=== PATIENT | male | born 1950 | race Caucasian/White ===

== ENCOUNTER 2018-08-02 04:20 | Emergency (ER) | payer MEDICARE ==
[~2018-08-02] VITALS: Ht 182.9 cm; Wt 100.0 kg
[~2018-08-02 04:20] MED LIST: ENAL20TA; OXYC20TA15
[2018-08-02 04:21] VITALS: BP 158/74
[2018-08-02] MEDS ORDERED: [UNRECOGNIZED DRUG - CODE] PO (04:30)
[2018-08-02] MEDS ORDERED: HYDR-3719 PO (04:30)
[2018-08-02] MEDS ORDERED: LYRI75CA PO (05:34)
[2018-08-02] MEDS ORDERED: NORT10CA2 PO (05:40)
[2018-08-02] MEDS ORDERED: PREGABALIN 75 MG CAP(LYRICA) PO ONE (05:45)
== END 2018-08-02 05:42 | disposition home or self-care (01) ==
LOC: M ED 04:20
DX: G62.89 Other specified polyneuropathies (principal); Z79.899 Other long term (current) drug therapy

== ENCOUNTER → 2020-06-03 | Outpatient (CLI) | payer MEDICARE, OTHER ==
[~2020-06-03] MED LIST changes: +HYDR-3719 PO; +LYRI75CA PO; +NORT10CA2 PO; +[UNRECOGNIZED DRUG - CODE] PO
[2020-06-03 12:06] LABS: BASO # 0.1 10^3/uL (0.0-0.2); BASO % 0.9 % (0.0-1.0); EOS # 0.2 10^3/uL (0.0-0.5); EOS % 1.8 % (0.0-3.0); HEMATOCRIT 39.1 % (42.0-52.0); HEMOGLOBIN 13.2 g/dl (13.5-17.5); LYMPH # 1.7 10^3/uL (1.5-5.0); LYMPH % 18.2 % (24.0-44.0); MEAN CORPUSCULAR HEMOGLOBIN 30.6 pg (27.0-33.0); MEAN CORPUSCULAR HGB CONC 33.8 g/dl (32.0-36.5); MEAN CORPUSCULAR VOLUME 90.7 fl (80.0-96.0); MONO # 0.8 10^3/uL (0.0-0.8); MONO % 8.5 % (0.0-5.0); NEUTROPHILS # 6.5 10^3/uL (1.5-8.5); NEUTROPHILS % 70.2 % (36.0-66.0); PLATELET COUNT, AUTOMATED 105 10^3/uL (150-450); RED BLOOD COUNT 4.31 10^6/uL (4.30-6.10); WHITE BLOOD COUNT 9.2 10^3/uL (4.0-10.0)
[2020-06-03 12:14] LABS: INR 1.39; PARTIAL THROMBOPLASTIN TIME 30.4 SECONDS (24.2-38.5); PROTHROMBIN TIME 17.4 SECONDS (12.5-14.3)
[2020-06-03 12:31] LABS: ALT/SGPT 15 U/L (12-78); BILIRUBIN,TOTAL 1.2 MG/DL (0.2-1.0); BLOOD UREA NITROGEN 22 MG/DL (7-18); CALCIUM LEVEL 8.7 MG/DL (8.8-10.2); CARBON DIOXIDE LEVEL 30 MEQ/L (21-32); CHLORIDE LEVEL 103 MEQ/L (98-107); CREATININE FOR GFR 1.15 MG/DL (0.70-1.30); FERRITIN 268 NG/ML (26-388); GLOMERULAR FILTRATION RATE > 60.0 (>49); GLUCOSE, FASTING 104 MG/DL (70-100); IRON (FE) 66 UG/DL (65-175); POTASSIUM SERUM 4.4 MEQ/L (3.5-5.1); SODIUM LEVEL 137 MEQ/L (136-145); TOTAL PROTEIN 7.6 GM/DL (6.4-8.2)
[2020-06-03 13:54] VITALS: BP 119/63
--- NOTE | 2020-06-03 17:51 | REP ---
INDICATION: UNSPEC. CIRRHOSIS OF LIVER, OTHER ASCITES COMPARISON: None. TECHNIQUE: The procedure was performed under the direct supervision of Dr. Lui. The risks and benefits of the procedure were explained to the patient and informed consent was obtained. The largest pocket of fluid was localized in the right flank using ultrasound guidance. The skin was prepped and draped in a sterile fashion. 1% lidocaine was used as a local anesthetic. Using ultrasound guidance, an 8-Korean multi side-hole catheter was inserted using trocar technique. 03155 cc of yellow fluid was withdrawn. The patient tolerated the procedure well and there were no immediate complications. After the appropriate amount of monitored convalescence, the patient was discharged from the department. FINDINGS: None IMPRESSION: Technically successful ultrasound-guided paracentesis yielding 70395 cc of yellow fluid. <Electronically signed by Alonso Lord > 06/03/20 [id number] <Electronically signed by Antoine Lui > 06/03/20 [id number]
[2020-06-06 12:07] LABS: ANTINUCLEAR ANTIBODIES DIRECT Negative (Negative)
== END ==
LOC: M IRPRO 10:58
PROVIDERS: ATTEND Internal Medicine Gastroenterology
DX: R18.8 Other ascites (principal); K74.60 Unspecified cirrhosis of liver

== ENCOUNTER 2020-09-05 09:12 | Inpatient (IN) | payer OTHER ==
[~2020-09-05] VITALS: Ht 188 cm; Wt 87.2 kg
[2020-09-05] MEDS ORDERED: NS 1,000 ML IV ONE (09:45)
--- NOTE | 2020-09-05 10:02 | REP ---
INDICATION: Altered Mental Status. COMPARISON: Comparison head CT study 27 February 2016.. TECHNIQUE: Helical scanning is acquired. 5 mm axial images were reformatted. Coronal MPR images were generated. FINDINGS: Bone window settings demonstrate an intact bony calvarium. There is no evidence of skull fracture or incidental bony calvarial lesion. The visualized paranasal sinuses appear clear. No intraorbital abnormality is seen. On soft tissue window setting images; the lateral, third, and fourth ventricles are normal in size and position. Lui-white differentiation pattern is normal above and below the tentorium. There are is no evidence of intracranial hemorrhage. No mass, edema, infarction, or midline shift is seen. No extra-axial fluid collection is appreciated. There is mild generalized volume loss. Small vessel atherosclerotic changes are again noted in the periventricular white matter. There is no evidence of intracranial hemorrhage. No acute infarction is evident. No extra-axial fluid collection, mass, edema, or midline shift is observed. IMPRESSION: Small-vessel changes and minimal volume loss. Unchanged from the 2016 prior study. No acute intracranial abnormality.. <Electronically signed by Kemal Lam > 09/05/20 0943
--- NOTE | 2020-09-05 10:17 | REP ---
INDICATION: Altered Mental Status. COMPARISON: No comparison radiographs. TECHNIQUE: Portable upright AP chest radiograph. FINDINGS: The lungs are well inflated and free of infiltrate. Pleural angles are sharp. Heart is enlarged. Pulmonary vasculature slightly cephalized. There are surgical clips in the left axillary soft tissues.. IMPRESSION: Cardiomegaly. Slight cephalization of vasculature. Surgical clips left axilla. Otherwise no acute disease.. <Electronically signed by Kemal Lam > 09/05/20 [id number]
[2020-09-05 10:28] LABS: BASO # 0.1 10^3/uL (0.0-0.2); BASO % 0.5 % (0.0-1.0); EOS # 0.2 10^3/uL (0.0-0.5); EOS % 1.5 % (0.0-3.0); HEMATOCRIT 35.9 % (42.0-52.0); HEMOGLOBIN 12.6 g/dl (13.5-17.5); LYMPH # 1.6 10^3/uL (1.5-5.0); LYMPH % 10.1 % (24.0-44.0); MEAN CORPUSCULAR HEMOGLOBIN 32.6 pg (27.0-33.0); MEAN CORPUSCULAR HGB CONC 35.1 g/dl (32.0-36.5); MEAN CORPUSCULAR VOLUME 92.8 fl (80.0-96.0); MONO # 1.3 10^3/uL (0.0-0.8); MONO % 8.4 % (0.0-5.0); NEUTROPHILS # 12.3 10^3/uL (1.5-8.5); NEUTROPHILS % 78.9 % (36.0-66.0); PLATELET COUNT, AUTOMATED 125 10^3/uL (150-450); RED BLOOD COUNT 3.87 10^6/uL (4.30-6.10)
[2020-09-05 10:31] LABS: WHITE BLOOD COUNT 15.6 10^3/uL (4.0-10.0)
[2020-09-05 10:37] LABS: VENOUS BASE EXCESS -1.9 (-2.0-2.0); VENOUS HCO3 23.2 MEQ/L (23.0-27.0); VENOUS O2 SATURATION 96.6 % (60.0-80.0); VENOUS PARTIAL PRESSURE CO2 40.8 mmHg (38.0-50.0); VENOUS PARTIAL PRESSURE O2 84.7 mmHg (30.0-50.0); VENOUS PH 7.372 UNITS (7.330-7.430); VENOUS STANDARD HCO3 22.8 MEQ/L; VENOUS TOTAL CO2 24.4 MEQ/L (24.0-28.0)
[2020-09-05 11:04] LABS: OSMOLALITY SERUM 292 MOSM/KG (280-301)
[2020-09-05 11:12] LABS: ACETAMINOPHEN LEVEL < 2.0 UG/ML (10.0-30.0); ALBUMIN 2.9 GM/DL (3.2-5.2); ALT/SGPT 75 U/L (12-78); BILIRUBIN,DIRECT 0.4 MG/DL (0.0-0.2); BILIRUBIN,TOTAL 0.7 MG/DL (0.2-1.0); BLOOD UREA NITROGEN 53 MG/DL (7-18); CALCIUM LEVEL 8.8 MG/DL (8.8-10.2); CARBON DIOXIDE LEVEL 23 MEQ/L (21-32); CHLORIDE LEVEL 97 MEQ/L (98-107); CK-MB VALUE MASS 1.9 NG/ML (<3.6); CPK CREATINE PHOSPHOKINASE 51 U/L (39-308); CREATININE FOR GFR 2.94 MG/DL (0.70-1.30); ETHYL ALCOHOL (ETHANOL) < 0.003 % (0.000-0.010); GLOMERULAR FILTRATION RATE 22.8 (>49); GLUCOSE, FASTING 167 MG/DL (70-100); MB/CK RELATIVE INDEX 3.73 (< OR =4); POTASSIUM SERUM 5.8 MEQ/L (3.5-5.1); SALICYLATE LEVEL < 1.7 MG/DL (5.0-30.0); SODIUM LEVEL 131 MEQ/L (136-145); TOTAL PROTEIN 6.6 GM/DL (6.4-8.2); TROPONIN I < 0.02 NG/ML (< 0.10)
[2020-09-05] MEDS ORDERED: NALOXONE INJ 0.4MG/1ML VIAL (J2310 PER 1MG) As Ordered ONE (11:37)
[2020-09-05] MEDS ORDERED: NALOXONE INJ 0.4MG/1ML VIAL (J2310 PER 1MG) IV STA (11:40)
[2020-09-05] MEDS ORDERED: NS 1,620 ML in IV 1 EA IV ONE (11:45)
[2020-09-05] MEDS ORDERED: cefTRIAXone SOD 2 GM in D5W MINI-BAG PLUS 50 ML IV ONE (11:45)
[2020-09-05] MEDS ORDERED: CALCIUM GLUCONATE 1,000 MG in D5W MINI-BAG PLUS 100 ML IV ONE (11:45)
[2020-09-05] MEDS ORDERED: HYDR12.55 PO (12:22)
[2020-09-05] MEDS ORDERED: TIZA4TAB4 PO (12:22)
[2020-09-05] MEDS ORDERED: TRAN4TAB PO (12:22)
[2020-09-05] MEDS ORDERED: SPIR50TA4 PO (12:22)
[2020-09-05] MEDS ORDERED: OXYC10TA12 PO (12:22)
[2020-09-05] MEDS ORDERED: MULT-6 PO (12:25)
[2020-09-05] MEDS ORDERED: DEXTROSE 50% 50 ML SYRINGE IV STA (13:01)
[2020-09-05] MEDS ORDERED: HumuLIN R (REGULAR) INSULIN (NovoLIN R) **100U/ML** PER UNIT IV STA (13:01)
--- NOTE | 2020-09-05 13:23 | HPEPDOC ---
General Date of Admission 09/05/20 Date of Service: Sep 05, 2020 Chief Complaint The patient is a 70-year-old male admitted with a reason for visit of Tremors/Ams. Source: Patient Exam Limitations: Clinical conditions Timing/Duration: Week(s) Severity: Moderate History of Present Illness Patient is 70 years old male with past medical history of Davila, hypertension, polyneuropathy, spinal stenosis presented to the hospital with altered mental status. Patient stated that for past 5-7 days he has been having cognitive slowing, he can't process information faster as usual. Also patient noticed increased hands tremor. In ER patient was found to have leukocytosis of 15.6, lactic acidosis 2.7, potassium 5.8, creatinine 2.9, ammonia level 60. CT head negative. Also patient was found to have hypotension 75/40, he received Narcan in ER with positive effect, blood pressure stabilized. Of note patient was on th e chronic opioid therapy. Also patient was found to have urinary retention, Wan catheter was placed, 400 mL was evacuated Home Medications Scheduled Hydrochlorothiazide (Hydrochlorothiazide) 12.5 Mg Tablet, 12.5 MG PO QHS, (Reported) Multivit-Min/Folic/Vit K/Lycop (Men's 50 Plus Multivitamin Tab) 1 Each Tablet, 1 TAB PO QHS, (Reported) Spironolactone (Spironolactone) 50 Mg Tablet, 50 MG PO BID, (Reported) Tizanidine HCl (Tizanidine HCl) 4 Mg Tablet, 4 MG PO QHS, (Reported) Trandolapril/Verapamil HCl (Trandolapr-Verapam ER 4-240 mg) 1 Each Tab.bp.24h, 1 TAB PO QHS, (Reported) Scheduled PRN Oxycodone HCl (Oxycodone HCl) 10 Mg Tablet, 10 MG PO QID PRN for PAIN, (Rep orted) Allergies Coded Allergies: No Known Allergies (Verified Allergy, Unknown, 09/05/20) Past Medical History Medical History Davila, hypertension, polyneuropathy, spinal stenosis Surgical History GALLBLADDER LEFT BREAST REMOVED FOR CANCER Family History FATHER: MOTHER: 2 SISTER(S) . 3 SON(S) , 5 DAUGHTER(S) - HEALTHY. Social History * Smoker: Denies Alcohol: Denies Drugs: denies A-FIB/CHADSVASC A-FIB History Current/History of A-Fib/PAF?: No Current PO Anticoag Therapy: No Review of Systems Constitutional: Reports: Malaise, Fatigue; Denies: Chills, Fever Eyes: Denies: Pain ENT: Denies: Head Aches Skin: Reports: Jaundice Pulmonary: Denies: Dyspnea Cardiovascular: Denies: Chest Pain Gastrointestinal: Denies: Nausea, Vomiting Genitourinary: Denies: Dysuria, Frequency Hematologic: Denies: Bruising Endocrine: Denies: Polydipsia Musculoskeletal: Denies: Neck Pain, Back Pain Neurological: Reports: Confusion; Denies: Weakness Psych: Reports: Mood Normal Physical Examination General Exam: Positive: Alert, Cooperative ENT Exam: Positive: Atraumatic Neck Exam: Positive: Supple Chest Exam: Positive: Clear to auscultation Heart Exam: Positive: Rate Normal Telemetry: Positive: No significant arrhythmia Abdomen Exam: Positive: Normal bowel sounds, BS Hypoactive, Hepatospenomegaly Skin Exam: Positive: Breakdown, Lesion Neuro Exam: Positive: Cranial Nerves 3-12 NL, Other (asterixis sign positive) Psych Exam: Positive: Other (mild confusion and slow cognitive functioning) Vital Signs Vital Signs Date Time Temp Pulse Resp B/P (MAP) Pulse Ox O2 Delivery O2 Flow Rate FiO2 09/05/20 12:55 61 18 90/53 (65) 100 Room Air 09/05/20 10:45 97.3 Laboratory Data Labs 24H Laboratory Tests 2 09/05/20 09:33: Urine Color YELLOW, Urine Appearance CLEAR, Urine pH 6.0, Urine Specific [place] 1.006, Urine Protein NEGATIVE, Urine Glucose (UA) 3+H, Urine Ketones NEGATIVE, Urine Blood NEGATIVE, Urine Nitrite NEGATIVE, Urine Bilirubin NEGATIVE, Urine Urobilinogen 0.2, Urine Leukocyte Esterase NEGATIVE, Urine WBC (Auto) 2, Urine RBC (Auto) 1, Urine Hyaline Casts (Auto) 0, Urine Bacteria (Auto) NEGATIVE, Urine Squamous Epithelial Cells 0, Urine Sperm (Auto) 09/05/20 09:42: 09/05/20 10:08: Immature Granulocyte % (Auto) 0.6, Neutrophils (%) (Auto) 78.9H, Lymphocytes (%) (Auto) 10.1L, Monocytes (%) (Auto) 8.4H, Eosinophils (%) (Auto) 1.5, Basophils (%) (Auto) 0.5, Neutrophils # (Auto) 12.3H, Lymphocytes # (Auto) 1.6, Monocytes # (Auto) 1.3H, Eosinophils # (Auto) 0.2, Basophils # (Auto) 0.1, Nucleated Red Blood Cells % (auto) 0.0, Blood Gas Bicarbonate Standard 22.8, Venous Blood pH 7.372, Venous Blood Partial Pressure CO2 40.8, Venous Blood Partial Pressure O2 84.7H, Venous Blood Total Carbon Dioxide 24.4, Venous Blood HCO3 23.2, Venous Blood Oxygen Saturation 96.6H, Venous Blood Base Excess -1.9, Anion Gap 11, Glomerular Filtration Rate 22.8L, Osmolality 292, Lactic Acid Level 2.7*H, Calcium Level 8.8, Total Bilirubin 0.7, Direct Bilirubin 0.4H, Aspartate Amino Transf (AST/SGOT) 55H, Alanine Aminotransferase (ALT/SGPT) 75, Alkaline Phosphatase 113, Ammonia 60H, Total Creatine Kinase 51, Creatine Kinase MB 1.9, Creatine Kinase MB Relative Index 3.73, Troponin I < 0.02, Total Protein 6.6, Al bumin 2.9L, Albumin/Globulin Ratio 0.8, Thyroid Stimulating Hormone (TSH) 2.750, Salicylates Level < 1.7L, Acetaminophen Level < 2.0L, Ethyl Alcohol Level < 0.003 09/05/20 12:42: CBC/BMP Laboratory Tests 09/05/20 10:08 Microbiology Microbiology 09/05/20 Blood Culture, Received Pending 09/05/20 Blood Culture, Received Pending Assessment/Plan Patient is 70 years old male with past medical history of Davila, hypertension, polyneuropathy, spinal stenosis presented to the hospital with altered mental status. Patient stated that for past 5-7 days he has been having cognitive slowing, he can't process information faster as usual. Also patient noticed increased hands tremor. In ER patient was found to have leukocytosis of 15.6, lactic acidosis 2.7, potassium 5.8, creatinine 2.9, ammonia level 60. CT head negative. Problems (1) Sepsis Status: Acute Problem Text: There is concern for SBP Patient was found to have hypotension and leukocytosis Started ceftriaxone Will proceed with CT abdomen and pelvis (2) Chronic neuropathic pain Status: Acute Problem Text: Opioids on hold for now due to altered mental status (3) DAVILA (nonalcoholic steatohepatitis) Status: Acute Problem Text: There is concern for hepatic encephalopathy secondary to Davila Ammonia level elevated to 60 We will start lactulose and rifaximin Continue spironolactone. Will start Lasix (4) Metabolic encephalopathy Status: Acute Problem Text: See above (5) ARF (acute renal failure) Status: Acute Problem Text: there is concern for hepatorenal syndrome secondary to advanced cirrhosis Appreciate/agree with embryology teacher consult (6) Hyperkalemia Status: Acute Problem Text: 10 units of insulin and D50 EKG negative for acute ischemic changes or QTc prolongation or T peak wave (7) Urinary retention Status: Chronic Problem Text: Patient was found to have urinary retention 400 mL was evacuated after Wan placement in ER Plan / VTE VTE Prophylaxis Ordered?: Yes RADHA MENDOZA DO Sep 05, 2020 13:23
[2020-09-05 13:41] LABS: RSV AMPLIFICATION NEGATIVE (NEGATIVE)
[2020-09-05] MEDS ORDERED: FUROSEMIDE 40MG/4ML VIAL (J1940) IV ONE (14:00)
--- NOTE | 2020-09-05 14:31 | REP ---
INDICATION: ascites COMPARISON: None TECHNIQUE: Axial noncontrast images from the lung bases to the pubic symphysis with coronal and sagittal reformations. This CT examination was performed using the following dose reduction techniques: Automated exposure control, adjustment of mA and/or kv according to the patient's size, and use of iterative reconstruction technique. FINDINGS: Evidence for cirrhosis and portal hypertension including mild splenomegaly, nodular liver contour, varices and portosystemic shunting as well as small amount of perihepatic and pelvic ascites. Pancreas, bilateral adrenal glands and right kidney are relatively normal for noncontrast evaluation. Left kidney includes 2 cm complex hypodensity likely representing complex cyst. Evidence for prior cholecystectomy. Bowel gas pattern without obstruction or acute inflammatory process. Diverticulosis noted without acute diverticulitis. Pelvis demonstrates Wan catheter in relatively normal bladder. Age-appropriate prostate gland and seminal vesicles noted. No retroperitoneal adenopathy. No free air. Abdominal aorta without aneurysm. Musculoskeletal structures demonstrate degenerative changes without acute osseous abnormality. Lung bases are clear. IMPRESSION: Changes related to cirrhosis with small amount of perihepatic and pelvic ascites. Further nonacute findings as described above. <Electronically signed by Alex Olivo > 09/05/20 [id number]
[2020-09-05 15:00] VITALS: BP 106/56
[2020-09-05 16:05] LABS: CALCIUM LEVEL 8.6 MG/DL (8.8-10.2); CREATININE FOR GFR 2.61 MG/DL (0.70-1.30); GLOMERULAR FILTRATION RATE 26.1 (>49); POTASSIUM SERUM 5.1 MEQ/L (3.5-5.1)
[2020-09-05] MEDS ORDERED: SPIRONOLACTONE 50 MG TAB PO SCH (17:00)
[2020-09-05] MEDS: NS 1,000 ML IV SCH (17:08)
[2020-09-05] MEDS: LACTULOSE 20 GM/30 ML SYRUP UD PO SCH (19:46)
[2020-09-05] MEDS: TAMSULOSIN 0.4 MG CAP PO SCH (19:47)
[2020-09-05] MEDS ORDERED: ACETAMINOPHEN 500 MG TAB PO ONE (20:15)
[2020-09-05] MEDS ORDERED: SODIUM CHLORIDE 0.9% 1000ML IV ONE (20:15)
[2020-09-05 21:13] LABS: AMPHETAMINES LEVEL URINE NEGATIVE (NEGATIVE); BARBITURATES URINE NEGATIVE (NEGATIVE); BENZODIAZEPINES URINE NEGATIVE (NEGATIVE); CANNABINOIDS URINE NEGATIVE (NEGATIVE); COCAINE METABOLITE URINE NEGATIVE (NEGATIVE); METHADONE URINE NEGATIVE (NEGATIVE); OPIATES URINE NEGATIVE (NEGATIVE); PHENCYCLIDINE URINE NEGATIVE (NEGATIVE)
[2020-09-05] MEDS ORDERED: NS 250 ML IV ONE (21:30)
[2020-09-05 22:00] VITALS: BP 132/59
[2020-09-06] MEDS: NS 1,000 ML IV SCH ×2 (02:28→18:56)
[2020-09-06] MEDS ORDERED: CAPSAICIN 0.025% CR 60 GM TOP PRN (02:45)
[2020-09-06] MEDS ORDERED: SODIUM CHLORIDE 0.9% 1000ML IV ONE ×2 (02:45→20:00)
[2020-09-06 05:59] LABS: HEMATOCRIT 36.8 % (42.0-52.0); HEMOGLOBIN 12.5 g/dl (13.5-17.5); MEAN CORPUSCULAR HEMOGLOBIN 31.6 pg (27.0-33.0); MEAN CORPUSCULAR VOLUME 92.9 fl (80.0-96.0); RED BLOOD COUNT 3.96 10^6/uL (4.30-6.10); WHITE BLOOD COUNT 10.9 10^3/uL (4.0-10.0)
[2020-09-06 06:00] VITALS: BP 116/55
[2020-09-06 06:08] LABS: PLATELET COUNT, AUTOMATED 95 10^3/uL (150-450)
[2020-09-06 06:23] LABS: ALBUMIN 2.4 GM/DL (3.2-5.2); BILIRUBIN,TOTAL 0.5 MG/DL (0.2-1.0); CALCIUM LEVEL 8.6 MG/DL (8.8-10.2); CREATININE FOR GFR 1.87 MG/DL (0.70-1.30); GLOMERULAR FILTRATION RATE 38.4 (>49); MAGNESIUM LEVEL 1.7 MG/DL (1.8-2.4); TOTAL PROTEIN 6.7 GM/DL (6.4-8.2)
[2020-09-06] MEDS: ENOXAPARIN 30MG/0.3ML SYRINGE (J1650 PER 10MG) SC SCH (07:57)
--- NOTE | 2020-09-06 08:47 | ECGEPIP ---
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
[2020-09-06] MEDS: LACTULOSE 20 GM/30 ML SYRUP UD PO SCH ×2 (09:27→20:22)
[2020-09-06] MEDS ORDERED: SOD POLYSTYRENE SULFONATE SUSP 15 GM/60 ML UD PO ONE (10:00)
[2020-09-06] MEDS ORDERED: SODIUM BICARBONATE 8.4% INJ 50MEQ 50 ML VIAL As Ordered ONE (12:43)
[2020-09-06] MEDS ORDERED: DULoxetine 20 MG CAP (CYMBALTA) PO ONE (13:00)
[2020-09-06 13:32] LABS: SPEC. GRAVITY BODY FLUIDS 1.014 (NOT ESTABLISHED)
[2020-09-06 13:53] LABS: SOURCE, BODY FLUID ALBUMIN ASCITES
[2020-09-06 14:00] VITALS: BP 132/70
[2020-09-06 14:05] LABS: SOURCE, BODY FLUID GLUCOSE ASCITES; SOURCE, BODY FLUID TOT PROTEIN ASCITES; TOTAL PROTEIN, BODY FLUID 1.6 G/DL (NOT ESTABLISHED)
[2020-09-06 16:14] LABS: SOURCE, BODY FLUID ASCITES
[2020-09-06 16:15] LABS: ASCITES FL COLOR PALE YELLOW (COLORLESS)
[2020-09-06 16:16] LABS: APPEARANCE, BODY FLUID CLOUDY (CLEAR)
--- NOTE | 2020-09-06 16:45 | CR ---
CONSULTATION DATE: 09/06/2020 REQUESTING PHYSICIAN: Ji Espinosa D.O. REASON FOR CONSULTATION: Hyperkalemia and acute renal failure. HISTORY OF PRESENT ILLNESS: Mr. Manjit Tapia is previously unknown to me. He is a 70-year-old male with a past medical history of non-alcoholic steatohepatitis, hypertension, neuropathy, spinal stenosis and other comorbid conditions mentioned below. Patient presented to the Emergency Room on September 05 because of confusion, altered mentation and tremor. In the Emergency Room, patient was found to be hypotensive with blood pressure 80's to 90 systolic on arrival and laboratory studies revealed hyperkalemia with potassium of 5.8 and renal failure with a creatinine of 2.9 and lactic acidosis as well and hyperammonemia (ammonia level of 60). The patient was found to be in urinary retention with Wan catheter being placed with 400 cc of immediate urine output and the patient was also given Narcan in the Emergency Room as he is on chronic opioids at home. Overnight, the patient's blood pressure remained borderline and soft with the majority of his readings being in the systolic 90's and he received multiple fluid boluses of normal saline. He had persistent lactic acidosis as well. I started him on normal saline at 50 cc an hour and his urine output and his renal function both improved. Patient is seen and examined this morning at the bedside. He reports he is feeling better. He denies any shortness of breath. He denies any use of NSAIDS at home. PAST MEDICAL HISTORY: Neuropathy, hypertension, chronic opioid use, non-alcoholic steatohepatitis. PAST SURGICAL HISTORY: History of gallbladder surgery and left breast removed for history of cancer. FAMILY HISTORY: He denies any family history of renal failure. SOCIAL HISTORY: He denies alcohol, smoking or illicit drugs. He does take chronic opioids. ALLERGIES: No known drug allergies. REVIEW OF SYSTEMS: Constitutional: He reports fatigue. He denies fevers. Eyes: He denies visual changes or tearing. ENT: He denies epistaxis or rhinorrhea. Cardiac: He denies chest pain or palpitations. Respiratory: He denies shortness of breath or cough. Gastrointestinal: He denies nausea, vomiting or diarrhea. Genitourinary: He had urinary retention and now has a Wan catheter. He denies dysuria. Hematologic: He denies anticoagulant use or easy bleeding. Endocrine: He denies a history of diabetes or thyroid problems. Musculoskeletal: He denies leg swelling or gout. Neurologic: He reports neuropathy, spinal stenosis. Psychiatric: He denies anxiety or depression. Skin: He denies any new rashes or ulcers. PHYSICAL EXAMINATION: VITAL SIGNS: Temperature 98.5, pulse 91, respiratory rate 18, blood pressure 116/55, saturating 100% on room air. INTAKE AND OUTPUT: Intake yesterday was 5.5 liters. Urine output was 4.6 liters. Net positive 1 liter. Weight in the bed scale today is not recorded. GENERAL: Patient is seen lying in bed, a well built male in no distress. HEENT: Extraocular muscles are intact. Tongue is moist. NECK: Supple. Jugular veins are not elevated. HEART: Sounds are regular, S1, S2. There is no peripheral edema. There is no dependent edema. LUNGS: Clear to auscultation bilaterally. No crackle or rale. ABDOMEN: Soft, nontender. There are bowel sounds. His liver edge is palpable. GENITOURINARY: Shows indwelling Wan catheter. EXTREMITIES: No leg edema, clubbing or cyanosis. NEUROLOGIC: He is oriented x3, interactive, and at baseline mentation at the time of my visit. PSYCHIATRIC: Appropriate mood and affect. LABORATORY DATA: Sodium 137, potassium 5.0, bicarbonate 23, BUN 37 down from 53 on admission, creatinine 1.8 down from 2.9 on admission. Lactic acid at midnight was 3.1. Magnesium 1.7. BNP was 971 yesterday and 851 today. Hemoglobin 12.5, platelets 95,000. MICROBIOLOGY: Blood cultures with no growth 24-hours times two sets. IMAGING STUDIES: CT of the abdomen and pelvis done on September 05 shows 2 cm complex cyst in the left kidney, evidence for cirrhosis, portal hypertension and mild splenomegaly and nodular liver contour, a small amount of perihepatic and pelvic ascites. INPATIENT MEDICATIONS: He received several boluses of normal saline and he is presently on normal saline at 50 cc an hour. Duloxetine 20 mg p.o. daily, Lovenox 30 mg daily, Lactulose 30 cc p.o. twice daily, Rifaximin 400 mg p.o. b.i.d., Kayexalate 30 grams p.o. times one, Flomax 0.4 mg p.o. q.h.s. PROBLEMS: 1. MAYAD on CKD stage 2: Patient's baseline creatinine looks to be 1.1 based on his last renal panel in May of 2020. His nonoliguric renal injury appears to be prerenal and secondary to hypotension and hypovolemia. The patient received 3.5 liters of normal saline overnight with significant improvement in his blood pressure, urine output and renal function. I would continue normal saline at 50 cc an hour at this time. As his systolic has come up nicely, I do not see a need to start Midodrine. 2. Sepsis: Patient was hypotensive on arrival and required aggressive normal saline and has a white count of 15.6. He is afebrile. Blood cultures show no growth for 24 hours and ascitic studies are pending, and he did receive one dose of Ceftriaxone pending infectious workup. His urinalysis was negative. His white count is improving. 3. Hyperkalemia: It is due to use of SIA inhibitor at home and acute kidney injury in the setting of hypotension and hypovolemia and it has resolved with fluid hydration and improvement in renal function. He continues on a potassium restricted diet. 4. Lactic acidosis: Most likely it is secondary to hypotension, hypovolemia, sepsis. It is down trending with I.V. fluid. Continue I.V. fluid at this time. I see no signs of any sort of fluid overload. In deed, his BNP is down trending. Thank you for involving me in the care of Mr. Tapia. I would be happy to follow him along with you.
--- NOTE | 2020-09-06 17:12 | REP ---
INDICATION: Suspect SBP. Send ascites fluid for analysis The patient has a history of ascites COMPARISON: None. TECHNIQUE: The procedure was performed by Esther Perera [facility], under the direct supervision of Dr. Lam The risks and benefits of the procedure were explained to the patient and an informed consent was obtained both verbally and written. Directly prior to the start of the procedure a formal time-out was completed in the procedure room. The largest pocket of fluid was localized in the right flank using ultrasound guidance. The skin was prepped and draped in a sterile fashion. Ten ML of 1% lidocaine 10 mg/ml was used as a local anesthetic. An 8-Turkmen multi side-hole catheter was inserted using trocar technique. FINDINGS: 400 mL of pink ascites fluid was removed and sent to the laboratory for further analysis. The patient tolerated the procedure well and there were no immediate complications. After the appropriate amount of monitored convalescence, the patient was discharged from the department. IMPRESSION: Ultrasound-guided diagnostic paracentesis. <Electronically signed by Esther Perera > 09/06/20 1634 <Electronically signed by Kemal Lam > 09/06/20 [id number]
--- NOTE | 2020-09-06 19:01 | IPNPDOC ---
Text Note Date of Service The patient was seen on 09/06/20. NOTE Subjective: Patient was seen and examined this morning at bedside. Patient tells me he is feeling better he denies any abdominal pain denies any nausea vomiting denies chest pain or shortness of breath. There is no acute overnight events reported to me. Patient is alert and oriented and answering all questions appropriately. Objective: Constitutional: Awake and alert, in no apparent distress answering all questions appropriately this morning ENT: Sclera are clear Respiratory: Lungs CTA bilaterally. No respiratory distress. No use of accessory muscles. Cardiovascular: RRR S1 and S2 are normal, no murmur Gastrointestinal: Abdomen is soft, non distended, non tender, BS present. There is no fluid shift. Musculoskeletal: No edema. RUE 5/5, LUE 5/5, BLE 5/5 Neurologic: No focal neurological deficit. Mental Status: A&O x3, normal affect Skin: Warm, dry Assessment/plan: 70-year-old male admitted for acute encephalopathy suspected to be secondary to elevated ammonia levels from hepatic encephalopathy showing good improvement with lactulose and rifaximin also found to have acute kidney injury which responded well to IV fluids.shane # Acute metabolic encephalopathy: This is likely secondary to hepatic encephalopathy secondary to [place] liver. Ammonia was initially elevated. Patient was started on lactulose and rifaximin with marketed improvement with resolution of his encephalopathy. # MAYDA on CKD2: Suspected to be secondary to hypotension and hypovolemia. Has improved with IV fluid hydration. Nephrology was consulted. # Sepsis: Upon arrival he was hypotensive and required fluid resuscitation he had an elevated WBC count of 15.6 which down trended to be close to normal range. Initially suspected to be SBP and was started on IV ceftriaxone. He doesn't have any abdominal pain and ascites fluid analysis today is pending.If PMNs <250 can stop antibiotics as my suspicion of SBP is low I attribute his altered mental status to his elevated ammonia. Procalcitonin 0.25 - Abx discouraged. # Hyperkalemia: Likely due to seng inhibitor use in the setting of MAYDA # Lactic acidosis: This is down trended with IV fluids was likely due to hypotension and hypovolemia # Urinary retention: PVRs and trial of voiding # Chronic neuropathic pain: Patient's altered mental status on admission could be due to overuse of opioids as he did respond to Narcan. I advised the patient that he needs to use less opioids. I offered the patient gabapentin which she refused I also discussed with him the advantages of trying to use duloxetine which she also refused. He may require referral from his primary care physician to a pain clinic. [facility] Aydee CARCAMO, I+O Aydee CARCAMO I+O Laboratory Tests 09/06/20 05:39 Vital Signs Date Time Temp Pulse Resp B/P (MAP) Pulse Ox O2 Delivery O2 Flow Rate FiO2 09/06/20 14:00 97.8 93 16 132/70 (90) 97 Room Air I&O- Last 24 Hours up to 6 AM 09/06/20 06:00 Intake Total 6450 ml Output Total 5750 ml Balance 700 ml KEILA CHAPMAN MD Sep 06, 2020 19:01
[2020-09-06] MEDS: TAMSULOSIN 0.4 MG CAP PO SCH (20:23)
[2020-09-06 22:00] VITALS: BP 147/79
[2020-09-06] MEDS ORDERED: cefTRIAXone SOD 2 GM in D5W MINI-BAG PLUS 50 ML IV ONE (23:45)
[2020-09-07 05:26] LABS: BASO % 0.5 % (0.0-1.0); EOS # 0.2 10^3/uL (0.0-0.5); EOS % 2.4 % (0.0-3.0); HEMOGLOBIN 12.4 g/dl (13.5-17.5); LYMPH # 0.9 10^3/uL (1.5-5.0); LYMPH % 11.9 % (24.0-44.0); MEAN CORPUSCULAR HGB CONC 34.4 g/dl (32.0-36.5); MONO # 0.7 10^3/uL (0.0-0.8); MONO % 8.7 % (0.0-5.0); RED BLOOD COUNT 3.87 10^6/uL (4.30-6.10); WHITE BLOOD COUNT 7.9 10^3/uL (4.0-10.0)
[2020-09-07 05:56] LABS: ALBUMIN 2.5 GM/DL (3.2-5.2); BILIRUBIN,TOTAL 0.6 MG/DL (0.2-1.0); CALCIUM LEVEL 8.3 MG/DL (8.8-10.2); CREATININE FOR GFR 1.31 MG/DL (0.70-1.30); GLOMERULAR FILTRATION RATE 57.9 (>49); POTASSIUM SERUM 3.8 MEQ/L (3.5-5.1); TOTAL PROTEIN 6.4 GM/DL (6.4-8.2)
[2020-09-07 06:00] VITALS: BP 144/79
[2020-09-07 06:20] LABS: PLATELET COUNT, AUTOMATED 58 10^3/uL (150-450)
[2020-09-07 08:00] VITALS: BP 146/85
[2020-09-07 09:00] VITALS: BP 146/85
[2020-09-07] MEDS ORDERED: DULoxetine 20 MG CAP (CYMBALTA) PO SCH (09:00)
[2020-09-07] MEDS: LACTULOSE 20 GM/30 ML SYRUP UD PO SCH (09:00)
[2020-09-07] MEDS: ENOXAPARIN 30MG/0.3ML SYRINGE (J1650 PER 10MG) SC SCH (09:00)
--- NOTE | 2020-09-07 10:13 | DS.PDOC ---
Discharge Summary General Date of Admission Sep 05, 2020 at 12:57 Date of Discharge 09/07/2020 Discharge Summary PROCEDURES PERFORMED DURING STAY: [None]. ADMITTING DIAGNOSES: 1. Altered mental status DISCHARGE DIAGNOSES: 1. Opioid overdose 2. Acute metabolic encephalopathy 3. Acute kidney injury 4. Sepsis 5. Lactic acidosis 6. Urinary retention COMPLICATIONS/CHIEF COMPLAINT: Chronic Neuropathic Pain Metabolic Encephalopathy. HISTORY OF PRESENT ILLNESS: From admitting attendings H&P: Patient is 70 years old male with past medical history of More[place], hypertension, polyneuropathy, spinal stenosis presented to the hospital with altered mental status. Patient stated that for past 5-7 days he has been having cognitive slowing, he can't process information faster as usual. Also patient noticed increased hands tremor. In ER patient was found to have leukocytosis of 15.6, lactic acidosis 2.7, potassium 5.8, creatinine 2.9, ammonia level 60. CT head negative. Also patient was found to have hypotension 75/40, he received Narcan in ER with positive effect, blood pressure stabilized. Of note patient was on the chronic opioid therapy. Also patient was found to have urinary retention, Wan catheter was placed, 400 mL was evacuated HOSPITAL COURSE: 70-year-old male admitted for acute encephalopathy suspected to be secondary to elevated ammonia levels from hepatic encephalopathy as well as possible opioid overdose which responded to Narcan also showing good improvement with lactulose and rifaximin also found to have acute kidney injury which responded well to IV fluids. # Acute metabolic encephalopathy: This is likely secondary to hepatic encephalopathy secondary to Moreno liver. Ammonia was initially elevated initially at 60 and improved to 26. Patient was started on lactulose and rifaximin with marketed improvement with resolution of his encephalopathy. It is possible that his opiate overdose was also contributing to his AMS as it responded to Narcan. # MAYDA on CKD2: Suspected to be secondary to hypotension and hypovolemia. Has improved with IV fluid hydration. Nephrology was consulted. # Sepsis: Upon arrival he was hypotensive and required fluid resuscitation he had an elevated WBC count of 15.6 which down trended now at normal range. Initially suspected to be SBP and was started on IV ceftriaxone. He doesn't have any abdominal pain and ascites fluid analysis today PMNs 50. He was given 1 extra dose of ceftriaxone out of abundance of caution after which antibiotics were stopped as my suspicion of SBP is low I attribute his altered mental status to his elevated ammonia as well as opiate overdose. I further questioned him regarding the presence of any abdominal pain or discomfort at time of admission and he says he's been having vague abdominal discomfort since the last time he was hospitalized and had large volume paracentesis but at the time of this admission this time he states his abdominal pain was actually never present and feels the best it's ever been. This further lowers my suspicion that SBP is at play. Procalcitonin 0.25 - Abx discouraged. # Hyperkalemia: Likely due to seng inhibitor use in the setting of MAYDA now resolved # Lactic acidosis: This resolved with IV fluids was likely due to hypotension and hypovolemia. Opiate overdose may have also contributed # Urinary retention: PVRs and trial of voiding # Chronic neuropathic pain: Patient's altered mental status on admission could be due to overuse of opioids as he did respond to Narcan. I advised the patient that he needs to use less opioids. I offered the patient gabapentin which she refused I also discussed with him the advantages of trying to use duloxetine which she also refused initially, but eventually agreed to try instead of the opioids as it should help more for his type of neuropathic pain. He may require referral from his primary care physician to a pain clinic. DISCHARGE MEDICATIONS: Please see below. ALLERGIES: Please see below. PHYSICAL EXAMINATION ON DISCHARGE: VITAL SIGNS: Please see below. Constitutional: Awake and alert, in no apparent distress answering all questions appropriately this morning ENT: Sclera are clear Respiratory: Lungs CTA bilaterally. No respiratory distress. No use of accessory muscles. Cardiovascular: RRR S1 and S2 are normal, no murmur Gastrointestinal: Abdomen is soft, non distended, non tender, BS present. There is no fluid shift. Musculoskeletal: No edema. RUE 5/5, LUE 5/5, BLE 5/5 Neurologic: No focal neurological deficit. Mental Status: A&O x3, normal affect Skin: Warm, dry LABORATORY DATA: Please see below. IMAGING: See chart PROGNOSIS: Fair ACTIVITY: [As tolerated]. DIET: 2 g sodium diet DISPOSITION: Home DISCHARGE INSTRUCTIONS: Please follow up with your primary care physician within 1 week from discharge. If you do not have one, please follow up with us to schedule an appointment. Please keep all of your follow up appointments. Please call central to book your appointments with hospital specialists. Please take all your medications as prescribed. Please call/come to Clinic or go to the Emergency Department if - Temp >101, intractable Nausea/Vomiting, Diarrhea, Mouth sores, Headaches, Altered mental s tatus, Seizures, sudden onset of swelling, bleeding, shortness of breath or chest pain. ITEMS TO FOLLOWUP ON ON OUTPATIENT: Follow-up with PCP within 3-5 days of discharge. DISCHARGE CONDITION: [Stable]. TIME SPENT ON DISCHARGE: 45 minutes. Vital Signs/I&Os Vital Signs Date Time Temp Pulse Resp B/P (MAP) Pulse Ox O2 Delivery O2 Flow Rate FiO2 09/07/20 08:00 97.4 98 18 146/85 (105) 98 Room Air I&O- Last 24 Hours up to 6 AM 09/07/20 06:00 Intake Total 4410 ml Output Total 2350 ml Balance 2060 ml Laboratory Data Labs 24H Laboratory Tests 2 09/06/20 13:05: Body Fluid Source ASCITES, Body Fluid Color PALE YELLOW, Body Fluid Appearance CLOUDY, Body Fluid Specific [place] 1.014, Body Fluid WBC (Auto) 683H, Body Fluid RBC (Auto) 4, Body Fluid Mononuclear Cells % Auto 92.7H, Fluid Polymorphonuclear Cell % Auto 7.3H, Body Fluid Glucose Source ASCITES, Body Fluid Glucose 315, Body Fluid Protein Source ASCITES, Body Fluid Total Protein 1.6, Body Fluid Albumin Source ASCITES, Body Fluid Albumin 0.7 09/06/20 19:11: Lactic Acid Level 3.4*H 09/06/20 22:38: Lactic Acid Level 2.4*H 09/07/20 05:13: Lactic Acid Level 1.4, Immature Granulocyte % (Auto) 0.5, Neutrophils (%) (Auto) 76.0H, Lymphocytes (%) (Auto) 11.9L, Monocytes (%) (Auto) 8.7H, Eosinophils (%) (Auto) 2.4, Basophils (%) (Auto) 0.5, Neutrophils # (Auto) 6.0, Lymphocytes # (Auto) 0.9L, Monocytes # (Auto) 0.7, Eosinophils # (Auto) 0.2, Basophils # (Auto) 0.0, Nucleated Red Blood Cells % (auto) 0.0, Anion Gap 7L, Glomerular Jose Daniel tration Rate 57.9, Calcium Level 8.3L, Total Bilirubin 0.6, Aspartate Amino Transf (AST/SGOT) 34, Alanine Aminotransferase (ALT/SGPT) 56, Alkaline Phosphatase 110, Ammonia 26, Total Protein 6.4, Albumin 2.5L, Albumin/Globulin Ratio 0.6 CBC/BMP Laboratory Tests 09/07/20 05:13 Microbiology Microbiology 09/06/20 Acid Fast Stain, Received Pending 09/06/20 Mycobacterial Culture, Received Pending 09/06/20 Fungal Smear, Received Pending 09/06/20 Fungal Culture, Received Pending 09/06/20 Gram Stain - Final, Resulted 09/06/20 Body Fluid Culture, Resulted Pending 09/05/20 Blood Culture - Preliminary, Resulted No growth after 24 hours . All specim... 09/05/20 Blood Culture - Preliminary, Resulted No Growth after 48 hours. All Specime... Discharge Medications Scheduled Duloxetine HCl (Cymbalta) 20 Mg Capsule.dr, 20 MG PO DAILY Hydrochlorothiazide (Hydrochlorothiazide) 12.5 Mg Tablet, 12.5 MG PO QHS, (Reported) Lactulose (Lactulose) 10 Gm/15 Ml Solution, 30 ML PO BID goal of 2-3 daily bowel movements Multivit-Min/Folic/Vit K/Lycop (Men's 50 Plus Multivitamin Tab) 1 Each Tablet, 1 TAB PO QHS, (Reported) Spironolactone (Spironolactone) 50 Mg Tablet, 50 MG PO BID, (Reported) Tamsulosin HCl (Flomax) 0.4 Mg Capsule, 0.4 MG PO QHS Tizanidine HCl (Tizanidine HCl) 4 Mg Tablet, 4 MG PO QHS, (Reported) Trandolapril/Verapamil HCl (Trandolapr-Verapam ER 4-240 mg) 1 Each Tab.bp.24h, 1 TAB PO QHS, (Reported) Scheduled PRN Capsaicin (Capsaicin) 0.025% Cream..g., 0 DOSE TOP QIDP PRN for burning pain Oxycodone HCl (Oxycodone HCl) 10 Mg Tablet, 10 MG PO QID PRN for PAIN, (Reported) Allergies Coded Allergies: No Known Allergies (Verified Allergy, Unknown, 09/05/20) KEILA CHAPMAN MD Sep 07, 2020 10:13
[2020-09-07] MEDS ORDERED: CAPS25CR TOP (10:17)
[2020-09-07] MEDS ORDERED: LACT20EL PO (10:17)
[2020-09-07] MEDS ORDERED: FLOM0.4C39 PO (10:17)
[2020-09-07] MEDS ORDERED: CYMB1CAP4 PO (10:17)
[2020-09-07] MEDS ORDERED: cefTRIAXone SOD 1 GM in D5W MINI-BAG PLUS 50 ML IV ONE (13:00)
[2020-09-07] MEDS ORDERED: cefTRIAXone SOD 2 GM in D5W MINI-BAG PLUS 50 ML IV ONE (13:00)
[2020-09-07 14:00] VITALS: BP 143/83
--- NOTE | 2020-09-07 16:05 | IPN ---
PROGRESS NOTE DATE: 09/07/2020 SUBJECTIVE: Manjit was seen and examined this morning at the bedside. He reports he feels much better. Yesterday evening I noted that the patient continued to have persistent lactic acidosis. His ascitic cell count yesterday showed only few polymorphonuclear leukocytes (PMNs); however, his cell count was done a day after he already received intravenous (IV) ceftriaxone in the emergency room. For that reason, I did dose him again yesterday evening with ceftriaxone. Patient denies any shortness of breath or abdominal tenderness. Laboratory studies show ongoing renal recovery. Temperature 98.1, pulse 98, respiratory rate 18, blood pressure 146/85, saturating 96% on room air. Intake yesterday was 4 liters. Urine output yesterday was 3 liters. Weight in the bed scale today was not recorded. General: Patient is seen awake, alert, oriented, and in no apparent distress. Extraocular muscles are intact. Tongue is moist. Neck is supple. Jugular veins are not elevated. Heart sounds are regular, S1, S2. There is no peripheral edema. There is no dependent edema. Lungs are clear to auscultation bilateral. No crackle or rale. Abdomen is soft and nontender. There are bowel sounds. His liver edge is palpable. Genitourinary shows indwelling Wan catheter. Extremities are negative for edema, clubbing, or cyanosis. Neurologic: Oriented times three, interactive and at baseline mentation. Psychiatric: Appropriate mood and affect. Today's laboratory studies show sodium 137, potassium 5.8, BUN 25, creatinine 1.3. Lactic acid 1.4. Ammonia 26. Hemoglobin 12.4, white count 7.9. His ascitic cell count yesterday showed 683 WBC, but only 67% of them were polymorphs. The remainder were monocytes. His ascitic culture is pending. INPATIENT MEDICATIONS: Reviewed by myself. The patient got a dose of IV ceftriaxone 2 grams times one yesterday evening, and he is ordered for another dose this afternoon. He continues on normal saline at 50 mL an hour. Remainder of medications is unchanged as compared to yesterday. PROBLEMS: 1. Nonoliguric acute renal failure superimposed on chronic kidney disease (CKD), stage II. It was in the setting of sepsis, most likely secondary to peritonitis. His renal function has improved with aggressive IV fluid and treatment of his sepsis. Baseline creatinine is 1.1, and today on labs his creatinine is down to 1.3. His home angiotensin-converting enzyme (SIA) inhibitor remains on hold. IV fluids can be discontinued at this time. He should followup in the nephrology office when he is discharged. 2. Sepsis. Most likely secondary to peritonitis. The patient initially had a white count of 15,000. He received IV ceftriaxone in the emergency room, and diagnostic paracentesis was done one day later. There were 683 WBC, but the polymorphs were only 7%; however, given that there was as a 1-day delay in diagnostic paracentesis and the patient already got IV antibiotic the preceding day, I am concerned that there was peritonitis, and I redosed him with ceftriaxone yesterday, and the hospitalist service is planning to give him another dose of ceftriaxone today, which I feel is very appropriate. His ascitic culture is pending. His blood culture is negative to date. His white count is improving. 3. Hyperkalemia. It is due to the use of SIA inhibitor and spironolactone at home in the setting of hypotension, hypovolemia, and sepsis, and it has resolved with IV fluid hydration and improvement in renal function. Given that he is on multiple medications with renal side effects, I discussed with him that he should followup in the nephrology office. 4. Status post lactic acidosis. It was due to sepsis, and is has resolved, and IV fluids have been discontinued.
== END 2020-09-07 18:16 | disposition home or self-care (01) | DRG 917 ==
LOC: M ED 09:12 → M ED INP 12:57 → M MSPAV 15:00
PROVIDERS: ADMIT Internal Medicine; ATTEND Family Medicine
PROC: 0W9F3ZZ Drainage of Abdominal Wall, Percutaneous Approach (ICD-10-PCS; principal; 2020-09-06 11:00)
DX: T40.2X1A Poisoning by other opioids, accidental (unintentional), initial encounter (principal); G93.41 Metabolic encephalopathy; A41.9 Sepsis, unspecified organism; N17.9 Acute kidney failure, unspecified; E87.2 Acidosis; K72.90 Hepatic failure, unspecified without coma; K75.81 Nonalcoholic steatohepatitis (NASH); G62.9 Polyneuropathy, unspecified; R33.9 Retention of urine, unspecified; E87.5 Hyperkalemia; Z79.899 Other long term (current) drug therapy; Z85.3 Personal history of malignant neoplasm of breast; N18.2 Chronic kidney disease, stage 2 (mild)

== ENCOUNTER 2020-09-16 14:31 | Inpatient (IN) | payer OTHER ==
[~2020-09-16] VITALS: Ht 182.9 cm; Wt 85.9 kg
[~2020-09-16 14:31] MED LIST changes: +CAPS25CR TOP; +CYMB1CAP4 PO; +FLOM0.4C39 PO; +HYDR12.55 PO; +LACT20EL PO; +MULT-6 PO; +OXYC10TA12 PO; +SPIR50TA4 PO; +TIZA4TAB4 PO; +TRAN4TAB PO
--- OUTSIDE RECORDS SUMMARY | 2020-09-16 14:38 | CCD ---
Author Organization Unknown Address [address] [place] [address] Phone [phone] Care Team Providers Care Machine Builder Name Role Phone CONCEPCION [employer] REVERSE UNIT OPERATOR 3 [phone] Allergies Code Code System Name Reaction Severity Status Onset NKDA Medications Name Status Start Date Stop Date amitriptyline 25 mg tablet TAKE FOUR TABLETS BY MOUTH AT BEDTIME Active N ot available aspirin 81 mg chewable tablet Chew 1 tablet every day by oral route. Completed 06/29/2020 buprenorphine 5 mcg/hour weekly transder mal patch APPLY 1 PATCH EVERY WEEK DIRECTED MAXIMUM DAILY DOSE 1 PATCH EVERY WEEK Active Not available diazepam 5 mg tablet Completed 10/07/2019 doxycycline hyclate 100 mg capsule TAKE ONE CAPSULE BY MOUTH TWICE A DAY Completed 1 08/30/2019 duloxetine 30 mg capsule,delayed release TAKE 1 CAPSULE BY MOUTH EVERY DAY FOR 2 WEEKS THEN 2 EVERY DAY Completed 06/29/2020 furosemide 40 mg tablet Active Not avai lable glimepiride 2 mg tablet one tablet daily with food Completed 06/29/2020 hydrochlorothiazide 12.5 mg tablet TAKE ONE TABLET BY MOUTH EVERY DAY Active Not available methadone 10 mg tablet TAKE ONE TABLET BY MOUTH TWICE A DAY MAXIMUM DAILY DOSE 2 TABLETS Completed 03/29/2020 methadone 5 mg tablet TAKE ONE TABLET BY MOUTH THREE TIMES A DAY MAXIMUM DAILY DOSE 3 Completed 03/29/2020 morphine ER 15 mg tablet,extended releas e TAKE ONE TABLET BY MOUTH EVERY 12 HOURS MAXIMUM DAILY DOSE 2 Completed 06/29/2020 oxycodone 10 mg tablet Take 1 tablet every 6-8 hours by oral route as needed. Active Not available OxyContin 10 mg tablet,crush resistant,extended release Complete d 06/29/2020 spironolactone 100 mg tablet Completed 08/2019 spironolactone 50 mg tablet Active Not available tizanidine 4 mg tablet Take 1 tablet twice a day by oral route as needed. Active Not available trandolapril 4 mg-verapamil ER 240 mg ta blet,immed-exten release 24 hr TAKE ONE TABLET BY MOUTH EVERY DAY Active Not available Problems Name Status Onset Date Source Hypertensive Disorder Active 02/01/2015 History Spondylosis without Myelopathy Active 02/01/2015 H istory Displacement of Lumbar Intervertebral Disc without Myelopathy Ac tive 02/01/2015 History Degeneration of Lumbosacral Intervertebral Disc Active 02/01/2015 History Lumbosacral Radiculopathy Active 02/01/2015 Histor y Procedures Date Name Performed by 06/08/2020 Abdomen Surgery Procedure Notes: draining the fluid n the abdomen Information not available Breast Surgery Procedure Information not available Cholecystectomy Information not avai lable Tarsal Tunnel Release Information not av ailable 10/07/2019 MRI, Lumbar Spine, W/o Contrast [facility] ([facility] [address] [place] [address] (Work Place) 12/10/2019 MRI, Lumbar Spine, W/o Contrast [facility] [address] [place] [address] (Work Place) 03/29/2020 MRI, Lumbar Spine, W/o Contrast [facility] [address] [address] (Work Place) Results Lab Results Date Name Specimen Result Interpretation Description Value Range Status Address 05/06/2020 Drug Screen, Urine No observation recorde d. [email or web address]: [address] [place] [address] 05/06/2020 [employer] Pdf Report UR No observation recorded. [email or web address]: [address] [place] [address] 05/06/2020 Drug Screen, Urine Amphetamines: negati ve Main Office: [address] [address] [address], [place] Thc negative Main Off ice: [address] [facility] [address] [place] Cocaine: negative Main Office: [address] [facility] [address] [place] Opiates: negative Main Office: [address] [facility] [address] [place] Mtd positive Main Off ice: [address] [facility] [address] [place] Oxy positive Main Off ice: [address] [address] [address] [place] Barbiturates: negative Main Office: [address] [address] [address] [place] Benzodiazepines: negative Main Office: [address] [facility] [address] [place] Methamphetamine negative Main Office: [address] [place] Pcp negative Main Off ice: [address] [place] 05/06/2020 Drug Screen, Urine U Tizanidine Ur Ql Cfm >=5 NG/mL >=5 NG/mL Final [facility]: [address] [place] [address] U Tizanidine Ur Cfm-mcnc 238 NG/mL >=2 5 NG/mL Final [facility]: [address] [place] [address] U Dehydrotizanidine Ur Cfm-mcnc 60 NG/ mL >=5 NG/mL Final [facility]: [address] [place] [address] 05/06/2020 Drug Screen, Urine U Buprenorphine Ur Ql Cfm <1 NG/mL >=1 NG/mL Final [facility]: [address] [place] [address] U Alcohol Metabolites Ur Ql Cfm <200 N G/mL >=200 NG/mL Final [facility]: [address] [place] [address] U Ethyl Glucuronide Ur Cfm-mcnc <500 N G/mL >=500 NG/mL Final [facility]: [address] [place] [address] U Ethyl Sulfate Ur Cfm-mcnc <200 NG/mL >=200 NG/mL Final [facility]: [address] [place] [address] U Amphetamines Ur Ql Cfm <0 NG/mL >=0 NG/mL Final [facility]: [address] [place] [address] U Tapentadol Ur Ql Cfm <100 NG/mL >=10 0 NG/mL Final [facility]: [address] [place] [address] U Benzodiaz Ur Ql Cfm <50 NG/mL >=50 N G/mL Final [facility]: [address] [place] [address] U Gabapentinpregabalin Ur Ql Cfm <5 mc g/mL >=5 mcg/mL Final [facility]: [address] [place] [address] U Bze Ur Ql Cfm <50 NG/mL >=50 NG/mL F inal [facility]: [address] [place] [address] U Opiates Ur Ql Cfm >=100 NG/mL >=100 NG/mL Final [facility]: [address] [place] [address] U Oxycodone Ur Cfm-mcnc >7500 NG/mL >= 100 NG/mL Final [facility]: [address] [place] [address] U Oxymorphone Ur Cfm-mcnc 6270 NG/mL > =100 NG/mL Final [facility]: [address] [place] [address] U 6Mam Ur Ql Cfm <10 NG/mL >=10 NG/mL Final [facility]: [address] [place] [address] U Methadone Ur Ql Cfm <200 NG/mL >=200 NG/mL Final [facility]: [address] [place] [address] U Meperidine Ur Ql Cfm <100 NG/mL >=10 0 NG/mL Final [facility]: [address] [place] [address] U Fentanyl+norfentanyl Ur Ql Cfm <5 NG /mL >=5 NG/mL Final [facility]: [address] [place] [address] U Carisoprodol+meprob Ur Ql Scn <200 N G/mL >=200 NG/mL Final [facility] [employer] [facility]: [address] [place] [address] U Tramadol Ur Ql Cfm <100 NG/mL >=100 NG/mL Final [facility]: [address] [place] [address] U Cotinine Ur Ql Cfm <125 NG/mL >=125 NG/mL Final [facility] [employer] [facility]: [address] [place] [address] U Normal pH Ur 5.77 4.5 - 9.0 Final [facility]: [address] [place] [address] U Normal Creat Ur-mcnc 130.3 mg/dL 20 - 370 m g/dL Final [facility]: [address] [place] [address] 05/06/2020 Antidepressants, Qualitative, Urine U Sn Reuptake Inhibitors Ur Ql <5 NG/mL >=5 NG/mL Final [facility]: [address] [place] [address] 05/06/2020 Drug Screen, Urine UR ABNORMAL Duloxetine Ur CM P <5 NG/mL >=5 NG/mL Final [facility]: [address] [place] [address] UR Normal Tizanidine Ur CMP 299 NG/mL >=5 NG/m L Final [facility]: [address] [place] [address] UR Normal Oxycodone Ur CMP >40981 NG/mL >=100 NG/mL Final [facility]: [address] [place] [address] 05/06/2020 Drug Screen, Urine No observation recorde d. [facility]: [address] [place] [address] 10/07/2019 Drug Screen, Urine Urine No observation recorde d. [email or web address]: [address] [place] [address] 10/07/2019 Drug Screen, Urine Amphetamines: negati ve Main Office: [address] [place] Cocaine: negative Main Office: [address] [place] Thc negative Main Off ice: [address] [place] Opiates: negative Main Office: [address] [place] Barbiturates: negative Main Office: [address] [address] [place] Benzodiazepines: negative Main Office: [address] [place] Methamphetamine negative Main Office: [address] [place] Pcp negative Main Off ice: [address] [address] [place] Mtd negative Main Off ice: [address] [place] Oxy positive Main Off ice: [address] [address] [place] 10/07/2019 [employer] Pdf Report UR No observation recorded. [email or web address]: [address] [place] [address] 10/07/2019 Drug Screen, Urine U Buprenorphine Ur Ql Cfm <1 NG/mL >=1 NG/mL Final [email or web address]: [address] [place] [address] U Alcohol Metabolites Ur Ql Cfm <200 N G/mL >=200 NG/mL Final [email or web address]: [address] [place] [address] U Ethyl Glucuronide Ur Cfm-mcnc <500 N G/mL >=500 NG/mL Final [email or web address]: [address] [place] [address] U Ethyl Sulfate Ur Cfm-mcnc <200 NG/mL >=200 NG/mL Final [email or web address]: [address] [place] [address] U Tapentadol Ur Ql Cfm <100 NG/mL >=10 0 NG/mL Final [email or web address]: [address] [place] [address] U Amphetamines Ur Ql Cfm <0 NG/mL >=0 NG/mL Final [email or web address]: [address] [place] [address] U Benzodiaz Ur Ql Cfm <50 NG/mL >=50 N G/mL Final [email or web address]: [address] [place] [address] U Gabapentinpregabalin Ur Ql Cfm <5 mc g/mL >=5 mcg/mL Final [facility]: [address] [place] [address] U Bze Ur Ql Cfm <50 NG/mL >=50 NG/mL F inal [facility]: [address] [place] [address] U Opiates Ur Ql Cfm >=100 NG/mL >=100 NG/mL Final [facility]: [address] [place] [address] U Oxycodone Ur Cfm-mcnc 568 NG/mL >=10 0 NG/mL Final [facility]: [address] [place] [address] U Oxymorphone Ur Cfm-mcnc 129 NG/mL >= 100 NG/mL Final [facility]: [address] [place] [address] U Noroxycodone Ur Cfm-mcnc 401 NG/mL > =100 NG/mL Final [facility]: [address] [place] [address] U 6Mam Ur Ql Cfm <10 NG/mL >=10 NG/mL Final [facility]: [address] [place] [address] U Methadone Ur Ql Cfm <200 NG/mL >=200 NG/mL Final [facility]: [address] [place] [address] U Meperidine Ur Ql Cfm <100 NG/mL >=10 0 NG/mL Final [facility]: [address] [place] [address] U Fentanyl+norfentanyl Ur Ql Cfm <5 NG /mL >=5 NG/mL Final [facility]: [address] [place] [address] U Carisoprodol+meprob Ur Ql Scn <200 N G/mL >=200 NG/mL Final [facility]: [address] [place] [address] U Tramadol Ur Ql Cfm <100 NG/mL >=100 NG/mL Final [facility]: [address] [place] [address] U Cotinine Ur Ql Cfm <125 NG/mL >=125 NG/mL Final [facility]: [address] [place] [address] U Normal pH Ur 5.84 4.5 - 9.0 Final [facility]: [address] [place] [address] U Normal Creat Ur-mcnc 34.7 mg/dL 20 - 370 mg /dL Final [facility]: [address] [place] [address] 10/07/2019 Drug Screen, Urine UR ABNORMAL Oxycodone Ur CMP 1090 NG/mL >=100 NG/mL Final [facility]: [address] [facility] [place] [facility] 07/28/2020 Lumbar Radiculopathy; Polyneuropathy; Degeneration of Lumbar Intervertebral Disc; Degeneration of Lumbosacral Intervertebral Disc; Displacement of Lumbar Intervertebral Disc without Myelopathy; Intervertebral Disc Disorder; Spondylosis without Myelopathy; Lumbosacral Spondylosis without Myelopathy; Long-term Drug Therapy; Myofascial Pain Laverne Ho, REVERSE UNIT OPERATOR: [address] [facility] [address], [place] [address], Ph. 06/29/2020 Lumbar Radiculopathy; Polyneuropathy; Degeneration of Lumbar Intervertebral Disc; Degeneration of Lumbosacral Intervertebral Disc; Displacement of Lumbar Intervertebral Disc without Myelopathy; Intervertebral Disc Disorder; Spondylosis without Myelopathy; Lumbosacral Spondylosis without Myelopathy; Long-term Drug Therapy; Myofascial Pain Laverne Ho, REVERSE UNIT OPERATOR: [address], [place] [address], Ph. 06/01/2020 Lumbar Radiculopathy; Polyneuropathy; Degeneration of Lumbar Intervertebral Disc; Degeneration of Lumbosacral Intervertebral Disc; Displacement of Lumbar Intervertebral Disc without Myelopathy; Intervertebral Disc Disorder; Spondylosis without Myelopathy; Lumbosacral Spondylosis without Myelopathy; Long-term Drug Therapy; Myofascial Pain Laverne Ho, REVERSE UNIT OPERATOR: [address], [place] [address], Ph. 05/06/2020 Lumbar Radiculopathy; Polyneuropathy; Degeneration of Lumbar Intervertebral Disc; Degeneration of Lumbosacral Intervertebral Disc; Displacement of Lumbar Intervertebral Disc without Myelopathy; Intervertebral Disc Disorder; Spondylosis without Myelopathy; Lumbosacral Spondylosis without Myelopathy; Long-term Drug Therapy; Myofascial Pain Laverne Ho, REVERSE UNIT OPERATOR: [address], [place] [address], Ph. 03/29/2020 Polyneuropathy; Lumbar Radiculopathy; Degeneration of Lumbar Intervertebral Disc; Degeneration of Lumbosacral Intervertebral Disc; Displacement of Lumbar Intervertebral Disc without Myelopathy; Intervertebral Disc Disorder; Spondylosis without Myelopathy; Lumbosacral Spondylosis without Myelopathy; Long-term Drug Therapy; Myofascial Pain Lavernenatalia [place] REVERSE UNIT OPERATOR: [address] [address], Ph. 02/19/2020 Polyneuropathy; Lumbar Radiculopathy; Degeneration of Lumbar Intervertebral Disc; Degeneration of Lumbosacral Intervertebral Disc; Displacement of Lumbar Intervertebral Disc without Myelopathy; Intervertebral Disc Disorder; Spondylosis without Myelopathy; Lumbosacral Spondylosis without Myelopathy; Long-term Drug Therapy; Myofascial Pain Laverne Ho REVERSE UNIT OPERATOR: [address] [address], Ph. 01/21/2020 Polyneuropathy; Lumbar Radiculopathy; Degeneration of Lumbar Intervertebral Disc; Degeneration of Lumbosacral Intervertebral Disc; Displacement of Lumbar Intervertebral Disc without Myelopathy; Intervertebral Disc Disorder; Spondylosis without Myelopathy; Lumbosacral Spondylosis without Myelopathy; Long-term Drug Therapy; Myofascial Pain Laverne Ho REVERSE UNIT OPERATOR: [address] [address], Ph. 12/10/2019 Polyneuropathy; Lumbar Radiculopathy; Degeneration of Lumbar Intervertebral Disc; Degeneration of Lumbosacral Intervertebral Disc; Displacement of Lumbar Intervertebral Disc without Myelopathy; Intervertebral Disc Disorder; Spondylosis without Myelopathy; Lumbosacral Spondylosis without Myelopathy; Long-term Drug Therapy Laverne Ho REVERSE UNIT OPERATOR: [address] [address], Ph. 11/12/2019 Polyneuropathy; Lumbar Radiculopathy; Degeneration of Lumbar Intervertebral Disc; Degeneration of Lumbosacral Intervertebral Disc; Displacement of Lumbar Intervertebral Disc without Myelopathy; Intervertebral Disc Disorder; Spondylosis without Myelopathy; Lumbosacral Spondylosis without Myelopathy; Long-term Drug Therapy Laverne Ho, REVERSE UNIT OPERATOR: [address] [address], [place] [address], Ph. 10/15/2019 Polyneuropathy; Lumbar Radiculopathy; Degeneration of Lumbar Intervertebral Disc; Degeneration of Lumbosacral Intervertebral Disc; Displacement of Lumbar Intervertebral Disc without Myelopathy; Intervertebral Disc Disorder; Spondylosis without Myelopathy; Lumbosacral Spondylosis without Myelopathy; Long-term Drug Therapy Laverne Ho, REVERSE UNIT OPERATOR: [address] [facility] [address], [place] [address], Ph. 10/07/2019 Polyneuropathy; Lumbar Radiculopathy; Degeneration of Lumbar Intervertebral Disc; Degeneration of Lumbosacral Intervertebral Disc; Displacement of Lumbar Intervertebral Disc without Myelopathy; Intervertebral Disc Disorder; Spondylosis without Myelopathy; Lumbosacral Spondylosis without Myelopathy; Long-term Drug Therapy Laverne Ho, REVERSE UNIT OPERATOR: [address] [address], [place] [address], Ph. Social History Tobacco Smoking Status Never Smoker Vaccine List None recorded. Plan of Care Reminders Provider Appointments None recorded. Lab None recorded. Referral None recorded. Procedures None recorded. Surgeries None recorded. Imaging None recorded. Vitals 07/28/2020 11:30AM FOLLOW-UP Height Blood Pressure 6 ft 131/78 mm[Hg] 06/01/2020 11:30AM FOLLOW-UP Height Blood Pressure 6 ft 156/89 mm[Hg] 05/06/2020 10:45AM FOLLOW-UP Height Blood Pressure 6 ft 148/79 mm[Hg] 01/21/2020 01:00PM Telehealth Height 6 ft 10/15/2019 10:00AM FOLLOW-UP Height Weight BMI Blood Pressure 6 ft 207 lbs 28.1 kg/m2 134/79 mm[Hg] 10/07/2019 01:15PM NEW PATIENT Height Weight BMI Blood Pressure 6 ft 207 lbs 28.1 kg/m2 121/79 mm[Hg] 02/01/2015 Height Weight BMI Blood Pressure 6 ft 6 in 225 lbs 26.10 kg/m2 161/95 mm[Hg]
--- OUTSIDE RECORDS SUMMARY | 2020-09-16 14:38 | CCD ---
Author Organization Unknown Address [address] [place] [address] Phone [phone] Care Team Providers Care Bakery Supervisor Name Role Phone CONCEPCION FISHER MICROBIOLOGY LAB ANALYST 3 [phone] Allergies Code Code System Name Reaction Severity [...] DAY Completed 06/29/2020 furosemide 40 mg tablet Take 1 tablet every day by oral route. Active Not available glimepiride 2 mg tablet one tablet daily with food Completed 06/29/2020 hydrochlorothiazide 12.5 mg tablet Active Not available methadone 10 mg tablet [...] tablet Completed 08/2019 spironolactone 50 mg tablet Take 1 tablet twice a day by oral route. Active Not available tizanidine 4 mg tablet Take 1 tablet twice a day by oral route as needed. Active Not available trandolapril 4 mg-verapamil ER 240 mg tablet,immed-ext en release 24 hr Completed 06/29/2020 Problems Name Status Onset Date Source Hypertensive Disorder Active 02/01/2015 History Spondylosis without Myelopathy Active 02/01/2015 H istory Displacement of Lumbar Intervertebral Disc without Myelopathy Ac tive 02/01/2015 History Degeneration of Lumbosacral Intervertebral Disc Active 02/01/2015 History Lumbosacral Radiculopathy Active 02/01/2015 Histor y Procedures Date Name Performed by Breast Surgery Procedure Information not available Cholecystectomy Information not avai lable Tarsal Tunnel Release Information not av ailable 10/07/2019 MRI, Lumbar Spine, W/o Contrast [facility] ([facility] [address] [place] [address] (Work Place) 12/10/2019 MRI, Lumbar Spine, W/o Contrast [facility] [address] [address] (Work Place) 03/29/2020 MRI, Lumbar Spine, W/o Contrast [facility] [address] [address] (Work Place) Results Lab Results Date Name Specimen Result Interpretation Description Value Range Status Address 05/06/2020 Drug Screen, Urine No observation recorde d. [facility]: [address] [place] [address] 05/06/2020 Cool Containers Pdf Report UR No observation recorded. [facility]: [address] [place] [address] 05/06/2020 Drug Screen, Urine Amphetamines: negati ve Main Office: [address] [facility] [address], [place] Thc negative Main Off ice: [address] [facility] [address], [place] Cocaine: negative Main Office: [address] [facility] [address], [place] Opiates: negative Main Office: [address] [facility] [address], [place] Mtd positive Main Off ice: [address] [facility] [address], [place] Oxy positive Main Off ice: [address] [facility] [address], [place] Barbiturates: negative Main Office: [address] [facility] [address], [place] Benzodiazepines: negative Main Office: [address] [facility] [address], [place] Methamphetamine negative Main Office: [address] [facility] [address], [place] Pcp negative Main Off ice: [address] [facility] [address] [place] 05/06/2020 Drug Screen, Urine U Tizanidine Ur Ql Cfm >=5 NG/mL >=5 NG/mL Final [employer]: [address] [place] [address] U Tizanidine Ur Cfm-mcnc 238 NG/mL >=2 5 NG/mL Final [employer]: [address] [place] [address] U Dehydrotizanidine Ur Cfm-mcnc 60 NG/ mL >=5 NG/mL Final [employer]: [address] [place] [address] 05/06/2020 Drug Screen, Urine U Buprenorphine Ur Ql Cfm <1 NG/mL >=1 NG/mL Final [employer]: [address] [place] [address] U Alcohol Metabolites Ur Ql Cfm <200 N G/mL >=200 NG/mL Final [employer] [facility]: [address] [place] [address] U Ethyl Glucuronide Ur Cfm-mcnc <500 N G/mL >=500 NG/mL Final [employer] [facility]: [address] [place] [address] U Ethyl Sulfate Ur Cfm-mcnc <200 NG/mL >=200 NG/mL Final [employer]: [address] [place] [address] U Amphetamines Ur Ql Cfm <0 NG/mL >=0 NG/mL Final [employer]: [address] [place] [address] U Tapentadol Ur Ql Cfm <100 NG/mL >=10 0 NG/mL Final [employer]: [address] [place] [address] U Benzodiaz Ur Ql Cfm <50 NG/mL >=50 N G/mL Final [employer]: [address] [place] [address] U Gabapentinpregabalin Ur Ql Cfm <5 mc g/mL >=5 mcg/mL Final [employer] [facility]: [address] [place] [address] U Bze Ur Ql Cfm <50 NG/mL >=50 NG/mL F inal [employer]: [address] [place] [address] U Opiates Ur Ql Cfm >=100 NG/mL >=100 NG/mL Final [employer] [facility]: [address] [place] [address] U Oxycodone Ur Cfm-mcnc >7500 NG/mL >= 100 NG/mL Final [employer]: [address] [place] [address] U Oxymorphone Ur Cfm-mcnc 6270 NG/mL > =100 NG/mL Final [employer]: [address] [place] [address] U 6Mam Ur Ql Cfm <10 NG/mL >=10 NG/mL Final [employer]: [address] [place] [address] U Methadone Ur Ql Cfm <200 NG/mL >=200 NG/mL Final [employer]: [address] [place] [address] U Meperidine Ur Ql Cfm <100 NG/mL >=10 0 NG/mL Final [employer]: [address] [place] [address] U Fentanyl+norfentanyl Ur Ql Cfm <5 NG /mL >=5 NG/mL Final [employer]: [address] [place] [address] U Carisoprodol+meprob Ur Ql Scn <200 N G/mL >=200 NG/mL Final [employer]: [address] [place] [address] U Tramadol Ur Ql Cfm <100 NG/mL >=100 NG/mL Final [employer]: [address] [place] [address] U Cotinine Ur Ql Cfm <125 NG/mL >=125 NG/mL Final [employer]: [address] [place] [address] U Normal pH Ur 5.77 4.5 - 9.0 Final [facility] [employer]: [address] [place] [address] U Normal Creat Ur-mcnc 130.3 mg/dL 20 - 370 m g/dL Final [employer]: [address] [place] [address] 05/06/2020 Antidepressants, Qualitative, Urine U Sn Reuptake Inhibitors Ur Ql <5 NG/mL >=5 NG/mL Final [employer] [facility]: [address] [place] [address] 05/06/2020 Drug Screen, Urine UR ABNORMAL Duloxetine Ur CM P <5 NG/mL >=5 NG/mL Final [employer]: [address] [place] [address] UR Normal Tizanidine Ur CMP 299 NG/mL >=5 NG/m L Final [employer]: [address] [place] [address] UR Normal Oxycodone Ur CMP >13780 NG/mL >=100 NG/mL Final [employer]: [address] [place] [address] 05/06/2020 Drug Screen, Urine No observation carine d. [employer]: [address] [place] [address] 10/07/2019 Drug Screen, Urine Urine No observation recorde d. [facility]: [address] [place] [address] 10/07/2019 Drug Screen, Urine Amphetamines: negati ve Main Office: [address] [place] Cocaine: negative Main Office: [address] [address] [place] Thc negative Main Off ice: [address] [address] [place] Opiates: negative Main Office: [address] [address] [place] Barbiturates: negative Main Office: [address] [address] [place] Benzodiazepines: negative Main Office: [address] [address] [place] Methamphetamine negative Main Office: [address] [address] [place] Pcp negative Main Off ice: [address] [address] [place] Mtd negative Main Off ice: [address] [address] [place] Oxy positive Main Off ice: [address] [address] [place] 10/07/2019 [employer] Pdf Report UR No observation recorded. [facility]: [address] [place] [address] 10/07/2019 Drug Screen, Urine U Buprenorphine Ur Ql Cfm <1 NG/mL >=1 NG/mL Final [facility]: [address] [place] [address] U Alcohol Metabolites Ur Ql Cfm <200 N G/mL >=200 NG/mL Final [facility]: [address] [place] [address] U Ethyl Glucuronide Ur Cfm-mcnc <500 N G/mL >=500 NG/mL Final [facility]: [address] [place] [address] U Ethyl Sulfate Ur Cfm-mcnc <200 NG/mL >=200 NG/mL Final [facility]: [address] [place] [address] U Tapentadol Ur Ql Cfm <100 NG/mL >=10 0 NG/mL Final [employer]: [address] [place] [address] U Amphetamines Ur Ql Cfm <0 NG/mL >=0 NG/mL Final [facility]: [address] [place] [address] U Benzodiaz Ur Ql Cfm <50 NG/mL >=50 N G/mL Final [employer]: [address] [place] [address] U Gabapentinpregabalin Ur Ql Cfm <5 mc g/mL >=5 mcg/mL Final [employer]: [address] [place] [address] U Bze Ur Ql Cfm <50 NG/mL >=50 NG/mL F inal [employer]: [address] [place] [address] U Opiates Ur Ql Cfm >=100 NG/mL >=100 NG/mL Final [employer]: [address] [place] [address] U Oxycodone Ur Cfm-mcnc 568 NG/mL >=10 0 NG/mL Final [employer]: [address] [place] [address] U Oxymorphone Ur Cfm-mcnc 129 NG/mL >= 100 NG/mL Final [employer]: [address] [place] [address] U Noroxycodone Ur Cfm-mcnc 401 NG/mL > =100 NG/mL Final [employer]: [address] [place] [address] U 6Mam Ur Ql Cfm <10 NG/mL >=10 NG/mL Final [employer]: [address] [place] [address] U Methadone Ur Ql Cfm <200 NG/mL >=200 NG/mL Final [employer]: [address] [place] [address] U Meperidine Ur Ql Cfm <100 NG/mL >=10 0 NG/mL Final [employer]: [address] [place] [address] U Fentanyl+norfentanyl Ur Ql Cfm <5 NG /mL >=5 NG/mL Final [employer]: [address] [place] [address] U Carisoprodol+meprob Ur Ql Scn <200 N G/mL >=200 NG/mL Final [employer]: [address] [place] [address] U Tramadol Ur Ql Cfm <100 NG/mL >=100 NG/mL Final [employer] [facility]: [address] [place] [address] U Cotinine Ur Ql Cfm <125 NG/mL >=125 NG/mL Final [employer]: [address] [place] [address] U Normal pH Ur 5.84 4.5 - 9.0 Final [employer] [facility]: [address] [place] [address] U Normal Creat Ur-mcnc 34.7 mg/dL 20 - 370 mg /dL Final [employer] [facility]: [address] [place] [address] 10/07/2019 Drug Screen, Urine UR ABNORMAL Oxycodone Ur CMP 1090 NG/mL >=100 NG/mL Final [employer]: [facility] Past Encounters 06/29/2020 Lumbar Radiculopathy; Polyneuropathy; Degeneration of Lumbar Intervertebral Disc; Degeneration of Lumbosacral Intervertebral Disc; Displacement of Lumbar Intervertebral Disc without Myelopathy; Intervertebral Disc Disorder; Spondylosis without Myelopathy; Lumbosacral Spondylosis without Myelopathy; Long-term Drug Therapy; Myofascial Pain Laverne Ho, MICROBIOLOGY LAB ANALYST: [address] [facility], [place] [address], Ph. 06/01/2020 Lumbar Radiculopathy; Polyneuropathy; Degeneration of Lumbar Intervertebral Disc; Degeneration of Lumbosacral Intervertebral Disc; Displacement of Lumbar Intervertebral Disc without Myelopathy; Intervertebral Disc Disorder; Spondylosis without Myelopathy; Lumbosacral Spondylosis without Myelopathy; Long-term Drug Therapy; Myofascial Pain Laverne Ho, MICROBIOLOGY LAB ANALYST: [address] [facility] [address], [place] [address], Ph. 05/06/2020 Lumbar Radiculopathy; Polyneuropathy; Degeneration of Lumbar Intervertebral Disc; Degeneration of Lumbosacral Intervertebral Disc; Displacement of Lumbar Intervertebral Disc without Myelopathy; Intervertebral Disc Disorder; Spondylosis without Myelopathy; Lumbosacral Spondylosis without Myelopathy; Long-term Drug Therapy; Myofascial Pain Laverne Ho, MICROBIOLOGY LAB ANALYST: [address] [facility] [address], [place] [address], Ph. 03/29/2020 Polyneuropathy; Lumbar Radiculopathy; Degeneration of Lumbar Intervertebral Disc; Degeneration of Lumbosacral Intervertebral Disc; Displacement of Lumbar Intervertebral Disc without Myelopathy; Intervertebral Disc Disorder; Spondylosis without Myelopathy; Lumbosacral Spondylosis without Myelopathy; Long-term Drug Therapy; Myofascial Pain Laverne Ho, MICROBIOLOGY LAB ANALYST: [address] [facility] [address], [place] [address], Ph. 02/19/2020 Polyneuropathy; Lumbar Radiculopathy; Degeneration of Lumbar Intervertebral Disc; Degeneration of Lumbosacral Intervertebral Disc; Displacement of Lumbar Intervertebral Disc without Myelopathy; Intervertebral Disc Disorder; Spondylosis without Myelopathy; Lumbosacral Spondylosis without Myelopathy; Long-term Drug Therapy; Myofascial Pain Laverne Ho MICROBIOLOGY LAB ANALYST: [address] [address], Ph. 01/21/2020 Polyneuropathy; Lumbar Radiculopathy; Degeneration of Lumbar Intervertebral Disc; Degeneration of Lumbosacral Intervertebral Disc; Displacement of Lumbar Intervertebral Disc without Myelopathy; Intervertebral Disc Disorder; Spondylosis without Myelopathy; Lumbosacral Spondylosis without Myelopathy; Long-term Drug Therapy; Myofascial Pain Laverne Ho MICROBIOLOGY LAB ANALYST: [address] [address], Ph. 12/10/2019 Polyneuropathy; Lumbar Radiculopathy; Degeneration of Lumbar Intervertebral Disc; Degeneration of Lumbosacral Intervertebral Disc; Displacement of Lumbar Intervertebral Disc without Myelopathy; Intervertebral Disc Disorder; Spondylosis without Myelopathy; Lumbosacral Spondylosis without Myelopathy; Long-term Drug Therapy Laverne Ho MICROBIOLOGY LAB ANALYST: [address] [address], Ph. 11/12/2019 Polyneuropathy; Lumbar Radiculopathy; Degeneration of Lumbar Intervertebral Disc; Degeneration of Lumbosacral Intervertebral Disc; Displacement of Lumbar Intervertebral Disc without Myelopathy; Intervertebral Disc Disorder; Spondylosis without Myelopathy; Lumbosacral Spondylosis without Myelopathy; Long-term Drug Therapy Laverne Ho MICROBIOLOGY LAB ANALYST: [address] [address], Ph. 10/15/2019 Polyneuropathy; Lumbar Radiculopathy; Degeneration of Lumbar Intervertebral Disc; Degeneration of Lumbosacral Intervertebral Disc; Displacement of Lumbar Intervertebral Disc without Myelopathy; Intervertebral Disc Disorder; Spondylosis without Myelopathy; Lumbosacral Spondylosis without Myelopathy; Long-term Drug Therapy Laverne Ho MICROBIOLOGY LAB ANALYST: [address] [address] [place] [address], Ph. 10/07/2019 Polyneuropathy; Lumbar Radiculopathy; Degeneration of Lumbar Intervertebral Disc; Degeneration of Lumbosacral Intervertebral Disc; Displacement of Lumbar Intervertebral Disc without Myelopathy; Intervertebral Disc Disorder; Spondylosis without Myelopathy; Lumbosacral Spondylosis without Myelopathy; Long-term Drug Therapy Laverne Ho, MICROBIOLOGY LAB ANALYST: [address], [place] [address], Ph. Social History Tobacco Smoking Status Never Smoker Vaccine List None recorded. Plan of Care Reminders Provider Appointments None recorded. Lab None recorded. Referral None recorded. Procedures None recorded. Surgeries None recorded. Imaging None recorded. Vitals 06/01/2020 11:30AM FOLLOW-UP Height Blood Pressure 6 [...]
--- OUTSIDE RECORDS SUMMARY | 2020-09-16 14:38 | CCD | Continuity of Care Document ---
Author Author Manjit KOENIG PVicki Organization Unknown Address [address] [place] [address] [place] [address] Phone [phone] Problems Description No Information Available Social History Type Date Description Comments Sex Unknown Tobacco Use Start: Unknown Never Smoked Cigarettes ETOH Use Denies alcohol use Allergies, Adverse Reactions, Alerts Description No Known Drug Allergies Medications Active Medications SIG Qnty Indications Ordering Provide r Date Amoxicillin/Clavulanate Potassium 875-125mg Tablets 1 tab by mouth twice a day for 7 days 14tabs K04.7 Brian Meyer JR., M.D. 08/04/2020 Tizanidine HCL 4mg Tablets Unknown Oxycodone HCL 10mg Tablets Take One Tablet By Mouth Every 6 To 8 Hours as Needed Maximum Daily Dose 4 Unknown Hydrochlorothiazide 12.5mg Tablets Take One Tablet By Mouth Every Day Unknown Furosemide 40mg Tablets Take One Tablet By Mouth Every Day Unknown Spironolactone 50mg Tablets Take One Tablet By Mouth Twice A Day Unknown 000 Immunizations Description No Information Available Vital Signs Date Vital Result Comment 08/04/2020 12:21pm BP Systolic 127 mmHg BP Diastolic 76 mmHg Heart Rate 78 /min Respiratory Rate 16 /min O2 % BldC Oximetry 99 % Body Temperature 98.7 F Weight 188.00 lb Height 72 inches 6'0" BMI (Body Mass Index) 25.5 kg/m2 Pain Level 3 Results Description No Information Available Procedures Description No Information Available Medical Devices Description No Information Available Encounters Type Date Location Provider Dx Diagnosis Office Visit 08/04/2020 12:00p [facility] Shane White K04.7 Periapical abscess without sinus Assessments Date Code Description Provider 08/04/2020 K04.7 Periapical abscess without sinus Johnny White Plan of Treatment 08/04/2020 - Sandra White.* K04.7 Periapical abscess without sinus* New Medication:* Amoxicillin/Clavulanate Potassium 875-125 mg - 1 tab by mouth twice a day for 7 days * Comments:* Supportive careSoft dietTylenol prn painFollow with dentistReturn for persisting or increasing symptoms. Patient voiced understanding and agrees to treatment plan. Functional Status Description No Information Available Mental Status Description No Information Available Referrals Description No Information Available
--- OUTSIDE RECORDS SUMMARY | 2020-09-16 14:38 | CCD | Continuity of Care Document ---
Author Author Manjit KOENIG PVicki Organization Unknown Address [address] [place] [address] [place] [address] Phone [phone] Problems Description No Information Available Social History [...]
--- OUTSIDE RECORDS SUMMARY | 2020-09-16 14:41 | CCD ---
Author Author [facility] Organization [facility] Address Unknown Phone Unavailable Care Team Providers Care Office Support Assistant Name Role Phone Treovr Beckman MD Unavailable Unavailable Trevor Beckman MD Unavailable Unavailable Trevor Beckman MD Unavailable Unavailable Trevor Beckman MD Unavailable Unavailable Trevor Beckman MD Unavailable Unavailable Trevor Beckman MD Unavailable Unavailable Trevor Beckman MD Unavailable Unavailable Trevor Beckman MD Unavailable Unavailable Trevor Beckman MD Unavailable Unavailable Trevor Beckman MD Unavailable Unavailable Trevor Beckman MD Unavailable Unavailable Trevor Beckman MD Unavailable Unavailable Trevor Beckman MD Unavailable Unavailable Trevor Beckman MD Unavailable Unavailable Trevor Beckman MD Unavailable Unavailable Trevor Beckman MD Unavailable Unavailable Trevor Beckman MD Unavailable Unavailable Trevor Beckman MD Unavailable Unavailable Trevor Beckman MD Unavailable Unavailable Trevor Beckman MD Unavailable Unavailable Trevor Beckman MD Unavailable Unavailable Trevor Beckman MD Unavailable Unavailable Trveor Beckman MD Unavailable Unavailable Trevor Beckman MD Unavailable Unavailable Trevor Beckman MD Unavailable Unavailable Trevor Beckman MD Unavailable Unavailable Trevor Beckman MD Unavailable Unavailable Trevor Beckman MD Unavailable Unavailable Trevor Beckman MD Unavailable Unavailable Trevor Beckman MD Unavailable Unavailable Trevor Beckman MD Unavailable Unavailable Rk, S Javi MD Unavailable Unavailable Rk, S Javi MD Unavailable Unavailable Rk, S Javi MD Unavailable Unavailable Rk, S Javi MD Unavailable Unavailable Rk, S Javi MD Unavailable Unavailable Rk, S Javi MD Unavailable Unavailable Rk, S Javi MD Unavailable Unavailable Rk, S Javi MD Unavailable Unavailable Rk, S Javi MD Unavailable Unavailable Rk, S Javi MD Unavailable Unavailable Rk, S Javi MD Unavailable Unavailable Rk, S Jaiv MD Unavailable Unavailable Rk, S Javi MD Unavailable Unavailable Rk, S Javi MD Unavailable Unavailable Rk, S Javi MD Unavailable Unavailable Rk, S Javi MD Unavailable Unavailable Rk, S Javi MD Unavailable Unavailable Rk, S Javi MD Unavailable Unavailable Rk, S Javi MD Unavailable Unavailable Shaben, E Katja HATCH TENDER Unavailable Unavailable Shaben, E Katja HATCH TENDER Unavailable Unavailable Shaben, E Katja HATCH TENDER Unavailable Unavailable Shaben, E Katja HATCH TENDER Unavailable Unavailable Shaben, E Katja HATCH TENDER Unavailable Unavailable Shaben, E Katja HATCH TENDER Unavailable Unavailable Shaben, E Katja HATCH TENDER Unavailable Unavailable Shaben, E Katja HATCH TENDER Unavailable Unavailable Shaben, E Katja HATCH TENDER Unavailable Unavailable Shaben, E Katja HATCH TENDER Unavailable Unavailable Shaben, E Katja HATCH TENDER Unavailable Unavailable Shaben, E Katja HATCH TENDER Unavailable Unavailable Shaben, E Katja HATCH TENDER Unavailable Unavailable Shaben, E Katja HATCH TENDER Unavailable Unavailable Shaben, E Katja HATCH TENDER Unavailable Unavailable Shaben, E Katja HATCH TENDER Unavailable Unavailable Shaben, E Katja HATCH TENDER Unavailable Unavailable Shaben, E Katja HATCH TENDER Unavailable Unavailable Shaben, E Katja HATCH TENDER Unavailable Unavailable Shaben, E Katja HATCH TENDER Unavailable Unavailable Shaben, E Katja HATCH TENDER Unavailable Unavailable Shaben, E Katja HATCH TENDER Unavailable Unavailable Shaben, E Katja HATCH TENDER Unavailable Unavailable Shaben, E Katja HATCH TENDER Unavailable Unavailable Kanagala, Jennifer V, JENNIFER Unavailable Unavailable ARYA, DENNIS PA Unavailable Unavailable ARYA, DENNIS PA Unavailable Unavailable ARYA, DENNIS PA Unavailable Unavailable ARYA, DENNIS PA Unavailable Unavailable ARYA, DENNIS PA Unavailable Unavailable ARYA, DENNIS PA Unavailable Unavailable ARYA, DENNIS PA Unavailable Unavailable ARYA, DENNIS PA Unavailable Unavailable ARYA, DENNIS PA Unavailable Unavailable ARYA, DENNIS PA Unavailable Unavailable ARYA, DENNIS PA Unavailable Unavailable ARYA, DENNIS PA Unavailable Unavailable ARYA, DENNIS PA Unavailable Unavailable ARYA, DENNIS PA Unavailable Unavailable ARYA, DENNIS PA Unavailable Unavailable ARYA, DENNIS PA Unavailable Unavailable ARYA, DENNIS PA Unavailable Unavailable ARYA, DENNIS PA Unavailable Unavailable ARYA, DENNIS PA Unavailable Unavailable ARYA, DENNIS PA Unavailable Unavailable ARYA, DENNIS PA Unavailable Unavailable ARYA, DENNIS PA Unavailable Unavailable ARYA, DENNIS PA Unavailable Unavailable ARYA, DENNIS PA Unavailable Unavailable ARYA, DENNIS PA Unavailable Unavailable ARYA, DENNIS PA Unavailable Unavailable ARYA, DENNIS PA Unavailable Unavailable ARYA, DENNIS PA Unavailable Unavailable ARYA, DENNIS PA Unavailable Unavailable ARYA, DENNIS PA Unavailable Unavailable ARYA, DENNIS PA Unavailable Unavailable ARYA, DENNIS PA Unavailable Unavailable ARYA, DENNIS PA Unavailable Unavailable ARYA, DENNIS PA Unavailable Unavailable ARYA, DENNIS PA Unavailable Unavailable ARYA, DENNIS PA Unavailable Unavailable ARYA, DENNIS PA Unavailable Unavailable ARYA, DENNIS PA Unavailable Unavailable ARYA, DENNIS PA Unavailable Unavailable PHYSICIAN, PHYSICIAN ER Unavailable Unavailable Lon, L Shelyta HATCH TENDER Unavailable Unavailable Lon, L Shelyta HATCH TENDER Unavailable Unavailable Lon, L Shelyta HATCH TENDER Unavailable Unavailable Lon, L Shelyta HATCH TENDER Unavailable Unavailable Lon, L Shelyta HATCH TENDER Unavailable Unavailable Lon, L Shelyta HATCH TENDER Unavailable Unavailable Lon, L Shelyta HATCH TENDER Unavailable Unavailable Lon, L Shelyta HATCH TENDER Unavailable Unavailable Lon, L Shelyta HATCH TENDER Unavailable Unavailable Lon, L Shelyta HATCH TENDER Unavailable Unavailable Lon, L Shelyta HATCH TENDER Unavailable Unavailable Lon, L Shelyta HATCH TENDER Unavailable Unavailable Lon, L Shelyta HATCH TENDER Unavailable Unavailable Lon, L Shelyta HATCH TENDER Unavailable Unavailable Lon, L Shelyta HATCH TENDER Unavailable Unavailable Lon, L Shelyta HATCH TENDER Unavailable Unavailable Lon, L Shelyta HATCH TENDER Unavailable Unavailable Lon, L Shelyta HATCH TENDER Unavailable Unavailable Lon, L Shelyta HATCH TENDER Unavailable Unavailable Lon, L Shelyta HATCH TENDER Unavailable Unavailable Lon, L Shelyta HATCH TENDER Unavailable Unavailable Lon, L Shelyta HATCH TENDER Unavailable Unavailable Lon, L Shelyta HATCH TENDER Unavailable Unavailable Lon, L Shelyta HATCH TENDER Unavailable Unavailable Leonidas Ervin MD Unavailable Unavailable Leonidas Ervin MD Unavailable Unavailable Leonidas Ervin MD Unavailable Unavailable Leonidas Ervin MD Unavailable Unavailable Leoindas Ervin MD Unavailable Unavailable ErvinLeonidas munoz MD Unavailable Unavailable Leonidas Ervin MD Unavailable Unavailable ErvinLeonidas munoz MD Unavailable Unavailable ErvinLeonidas munoz MD Unavailable Unavailable ErvinLeonidas munoz MD Unavailable Unavailable ErvinLeonidas munoz MD Unavailable Unavailable ErvinLeonidas munoz MD Unavailable Unavailable ErvinLeonidas MD Unavailable Unavailable Leonidas Ervin MD Unavailable Unavailable Ervin W Slava GILLESPIE Unavailable Unavailable Leonidas Ervin MD Unavailable Unavailable Leonidas Ervin MD Unavailable Unavailable Leonidas Ervin MD Unavailable Unavailable Leonidas Ervin MD Unavailable Unavailable Leonidas Ervin MD Unavailable Unavailable Leonidas Ervin MD Unavailable Unavailable ErvinLeonidas munoz MD Unavailable Unavailable Leonidas Ervin MD Unavailable Unavailable Leonidas Ervin MD Unavailable Unavailable Leonidas Ervin MD Unavailable Unavailable Leonidas Ervin MD Unavailable Unavailable Leonidas Ervin MD Unavailable Unavailable Leonidas Ervin MD Unavailable Unavailable Leonidas Ervin MD Unavailable Unavailable Leonidas Ervin MD Unavailable Unavailable Leonidas Ervin MD Unavailable Unavailable Leonidas Ervin MD Unavailable Unavailable Leonidas Ervin MD Unavailable Unavailable Leonidas Ervin MD Unavailable Unavailable Leonidas Ervin MD Unavailable Unavailable Leonidas Ervin MD Unavailable Unavailable Leonidas Ervin MD Unavailable Unavailable Leonidas Ervin MD Unavailable Unavailable Leonidas Ervin MD Unavailable Unavailable Leonidas Ervin MD Unavailable Unavailable Leonidas Ervin MD Unavailable Unavailable Leonidas Ervin MD Unavailable Unavailable Leonidas Ervin MD Unavailable Unavailable Leonidas Ervin MD Unavailable Unavailable Leonidas Ervin MD Unavailable Unavailable Leonidas Ervin MD Unavailable Unavailable Leonidas Ervin MD Unavailable Unavailable Leonidas Ervin MD Unavailable Unavailable Leonidas Ervin MD Unavailable Unavailable Lenoidas Ervin MD Unavailable Unavailable Leonidas Ervin MD Unavailable Unavailable Leonidas Ervin MD Unavailable Unavailable Leonidas Ervin MD Unavailable Unavailable Leonidas Ervin MD Unavailable Unavailable Ervin, Leonidas Pedersen MD Unavailable Unavailable Ervin, Leonidas Pedersen MD Unavailable Unavailable Ervin, Leonidas Pedersen MD Unavailable Unavailable Ervin, Leonidas Pedersen MD Unavailable Unavailable Ervin, Leonidas Pedersen MD Unavailable Unavailable Ervin, Leonidas Pedersen MD Unavailable Unavailable Ervin, Leonidas Pedersen MD Unavailable Unavailable Ervin, Leonidas Pedersen MD Unavailable Unavailable Ervin, Leonidas Pedersen MD Unavailable Unavailable Ervin, Leonidas Pedersen MD Unavailable Unavailable ANTHONY GILLESPIE, Quinn RODRIGUEZ Unavailable Unavailable Vitaliy II, C Mikey RPA-C Unavailable Unavailable Vitaliy II, C Mikey RPA-C Unavailable Unavailable Vitaliy II, C Mikey RPA-C Unavailable Unavailable Vitaliy II, C Mikey RPA-C Unavailable Unavailable Vitaliy II, C Mikey RPA-C Unavailable Unavailable Vitaliy II, C Mikey RPA-C Unavailable Unavailable Vitaliy II, C Mikey RPA-C Unavailable Unavailable Vitaliy II, C Mikey RPA-C Unavailable Unavailable Vitaliy II, C Mikey RPA-C Unavailable Unavailable Vitaliy II, C Mikey RPA-C Unavailable Unavailable Vitaliy II, C Mikey RPA-C Unavailable Unavailable Vitaliy II, C Mikey RPA-C Unavailable Unavailable Vitaliy II, C Mikey RPA-C Unavailable Unavailable Vitaliy II, C Mikey RPA-C Unavailable Unavailable Vitaliy II, C Mikey RPA-C Unavailable Unavailable Vitaliy II, C Mikey RPA-C Unavailable Unavailable Vitaliy II, C Mikey RPA-C Unavailable Unavailable Vitaliy II, C Mikey RPA-C Unavailable Unavailable Vitaliy II, C Mikey RPA-C Unavailable Unavailable Vitaliy II, C Mikey RPA-C Unavailable Unavailable Vitaliy II, C Mikey RPA-C Unavailable Unavailable Vitaliy II, C Mikey RPA-C Unavailable Unavailable Vitaliy II, C Mikey RPA-C Unavailable Unavailable Vitaliy II, C Mikey RPA-C Unavailable Unavailable Vitaliy II, C Mikey RPA-C Unavailable Unavailable Vitaliy II, C Mikey RPA-C Unavailable Unavailable Vitaliy II, C Mikey RPA-C Unavailable Unavailable Ivtaliy II, C Mikey RPA-C Unavailable Unavailable Vitaliy II, C Mikey RPA-C Unavailable Unavailable Vitaliy II, C Mikey RPA-C Unavailable Unavailable Vitaliy II, C Mikey RPA-C Unavailable Unavailable Vitaliy II, C Mikey RPA-C Unavailable Unavailable Vitaliy II, C Mikey RPA-C Unavailable Unavailable Vitaliy II, C Mikey RPA-C Unavailable Unavailable Vitaliy II, C Mikey RPA-C Unavailable Unavailable Vitaliy II, C Mikey RPA-C Unavailable Unavailable Vitaliy II, C Mikey RPA-C Unavailable Unavailable Vitaliy II, C Mikey RPA-C Unavailable Unavailable KAHLIL, L KATHLEEN LANCE CREWMEMBER Unavailable Unavailable KAHLIL, L KATHLEEN LANCE CREWMEMBER Unavailable Unavailable KAHLIL, L KATHLEEN LANCE CREWMEMBER Unavailable Unavailable KAHLIL, L KATHLEEN LANCE CREWMEMBER Unavailable Unavailable KAHLIL, L KATHLEEN LANCE CREWMEMBER Unavailable Unavailable KAHLIL, L KATHLEEN LANCE CREWMEMBER Unavailable Unavailable KAHLIL, L KATHLEEN LANCE CREWMEMBER Unavailable Unavailable KAHLIL, L KATHLEEN LANCE CREWMEMBER Unavailable Unavailable KAHLIL, L KATHLEEN LANCE CREWMEMBER Unavailable Unavailable KAHLIL, L KATHLEEN LANCE CREWMEMBER Unavailable Unavailable KAHLIL, L KATHLEEN LANCE CREWMEMBER Unavailable Unavailable KAHLIL, L KATHLEEN LANCE CREWMEMBER Unavailable Unavailable KAHLIL, L KATHLEEN LANCE CREWMEMBER Unavailable Unavailable KAHLIL, L KATHLEEN LANCE CREWMEMBER Unavailable Unavailable KAHLIL, L KATHLEEN LANCE CREWMEMBER Unavailable Unavailable KAHLIL, L KATHLEEN LANCE CREWMEMBER Unavailable Unavailable KAHLIL, L KATHLEEN LANCE CREWMEMBER Unavailable Unavailable KAHLIL, L KATHLEEN LANCE CREWMEMBER Unavailable Unavailable KAHLIL, L KATHLEEN LANCE CREWMEMBER Unavailable Unavailable KAHLIL, L KATHLEEN LANCE CREWMEMBER Unavailable Unavailable KAHLIL, L KATHLEEN LANCE CREWMEMBER Unavailable Unavailable KAHLIL, L KATHLEEN LANCE CREWMEMBER Unavailable Unavailable KAHLIL, L KATHLEEN LANCE CREWMEMBER Unavailable Unavailable KAHLIL, L KATHLEEN LANCE CREWMEMBER Unavailable Unavailable KAHLIL, L KATHLEEN LANCE CREWMEMBER Unavailable Unavailable KAHLIL, L KATHLEEN LANCE CREWMEMBER Unavailable Unavailable KAHLIL, L KATHLEEN LANCE CREWMEMBER Unavailable Unavailable KAHLIL, L KATHLEEN LANCE CREWMEMBER Unavailable Unavailable KAHLIL, L KATHLEEN LANCE CREWMEMBER Unavailable Unavailable KAHLIL, L KATHLEEN LANCE CREWMEMBER Unavailable Unavailable KAHLIL, L KATHLEEN LANCE CREWMEMBER Unavailable Unavailable KAHLIL, L KATHLEEN LANCE CREWMEMBER Unavailable Unavailable KAHLIL, L KATHLEEN LANCE CREWMEMBER Unavailable Unavailable KAHLIL, L KATHLEEN LANCE CREWMEMBER Unavailable Unavailable KAHLIL, L KATHLEEN LANCE CREWMEMBER Unavailable Unavailable CELESTINA EDWARDS MD Unavailable Unavailable CELESTINA EDWARDS MD Unavailable Unavailable CELESTINA EDWARDS MD Unavailable Unavailable CELESTINA EDWARDS MD Unavailable Unavailable CELESTINA EDWARDS MD Unavailable Unavailable CELESTINA EDWARDS MD Unavailable Unavailable CELESTINA EDWARDS MD Unavailable Unavailable CELESTINA EDWARDS MD Unavailable Unavailable CELESTINA EDWARDS MD Unavailable Unavailable CELESTINA EDWARDS MD Unavailable Unavailable CELESTINA EDWARDS MD Unavailable Unavailable CELESTINA EDWARDS MD Unavailable Unavailable CELESTINA EDWARDS MD Unavailable Unavailable RING, CELESTINA VALLEJO MD Unavailable Unavailable RING, CELESTINA VALLEJO MD Unavailable Unavailable RING, CELESTINA VALLEJO MD Unavailable Unavailable RING, CELESTINA VALLEJO MD Unavailable Unavailable RING, CELESTINA VALLEJO MD Unavailable Unavailable RING, CELESTINA VALLEJO MD Unavailable Unavailable RING, CELESTINA VALLEJO MD Unavailable Unavailable RING, CELESTINA VALLEJO MD Unavailable Unavailable RING, CELESTINA VALLEJO MD Unavailable Unavailable RING, CELESTINA VALLEJO MD Unavailable Unavailable RING, CELESTINA VALLEJO MD Unavailable Unavailable RING, CELESTINA VALLEJO MD Unavailable Unavailable RING, CELESTINA VALLEJO MD Unavailable Unavailable RING, CELESTINA VALLEJO MD Unavailable Unavailable RING, CELESTINA VALLEJO MD Unavailable Unavailable RING, CELESTINA VALLEJO MD Unavailable Unavailable RING, CELESTINA VALLEJO MD Unavailable Unavailable RING, CELESTINA VALLEJO MD Unavailable Unavailable RING, CELESTINA VALLEJO MD Unavailable Unavailable RING, CELESTINA VALLEJO MD Unavailable Unavailable RING, CELESTINA VALLEJO MD Unavailable Unavailable RING, CELESTINA VALLEJO MD Unavailable Unavailable RING, CELESTINA VALLEJO MD Unavailable Unavailable RING, CELESTINA VALLEJO MD Unavailable Unavailable RING, CELESTINA VALLEJO MD Unavailable Unavailable RING, CELESTINA VALLEJO MD Unavailable Unavailable RING, CELESTINA VALLEJO MD Unavailable Unavailable RING, CELESTINA VALLEJO MD Unavailable Unavailable RING, CELESTINA VALLEJO MD Unavailable Unavailable RING, CELESTINA VALLEJO MD Unavailable Unavailable RING, CELESTINA VALLEJO MD Unavailable Unavailable RING, CELESTINA VALLEJO MD Unavailable Unavailable RING, CELESTINA VALLEJO MD Unavailable Unavailable RING, CELESTINA VALLEJO MD Unavailable Unavailable RING, CELESTINA VALLEJO MD Unavailable Unavailable RING, CELESTINA AVLLEJO MD Unavailable Unavailable RING, CELESTINA VALLEJO MD Unavailable Unavailable RING, CELESTINA VALLEJO MD Unavailable Unavailable RING, CELESTINA VALLEJO MD Unavailable Unavailable RING, CELESTINA VALLEJO MD Unavailable Unavailable RING, CELESTINA VALLEJO MD Unavailable Unavailable RING, CELESTINA VALLEJO MD Unavailable Unavailable RING, CELESTINA VALLEJO MD Unavailable Unavailable RING, CELESTINA VALLEJO MD Unavailable Unavailable RING, CELESTINA VALLEJO MD Unavailable Unavailable RING, CELESTINA VALLEJO MD Unavailable Unavailable RING, CELESTINA VALLEJO MD Unavailable Unavailable RING, CELESTINA VALLEJO MD Unavailable Unavailable RING, CELESTINA VALLEJO MD Unavailable Unavailable RING, CELESTINA VALLEJO MD Unavailable Unavailable RING, CELESTINA VALLEJO MD Unavailable Unavailable RING, CELESTINA VALLEJO MD Unavailable Unavailable RING, CELESTINA VALLEJO MD Unavailable Unavailable RING, CELESTINA VALLEJO MD Unavailable Unavailable RING, CELESTINA VALLEJO MD Unavailable Unavailable RING, CELESTINA VALLEJO MD Unavailable Unavailable RING, CELESTINA VALLEJO MD Unavailable Unavailable RING, CELESTINA VALLEJO MD Unavailable Unavailable RING, CELESTINA VALLEJO MD Unavailable Unavailable RING, CELESTINA VALLEJO MD Unavailable Unavailable RING, CELESTINA VALLEJO MD Unavailable Unavailable RING, CELESTINA VALLEJO MD Unavailable Unavailable RING, CELESTINA VALLEJO MD Unavailable Unavailable RING, CELESTINA VALLEJO MD Unavailable Unavailable RING, CELESTINA VALLEJO MD Unavailable Unavailable RING, CELESTINA VALLEJO MD Unavailable Unavailable RING, CELESTINA VALLEJO MD Unavailable Unavailable RING, CELESTINA VALLEJO MD Unavailable Unavailable RING, CELESTINA VALLEJO MD Unavailable Unavailable RING, CELESTINA VALLEJO MD Unavailable Unavailable RING, CELESTINA VALLEJO MD Unavailable Unavailable RING, CELESTINA VALLEJO MD Unavailable Unavailable RING, CELESTINA VALLEJO MD Unavailable Unavailable RING, CELESTINA VALLEJO MD Unavailable Unavailable RING, CELESTINA VALLEJO MD Unavailable Unavailable RING, CELESTINA VALLEJO MD Unavailable Unavailable RING, CELESTINA VALLEJO MD Unavailable Unavailable RING, CELESTINA VALLEJO MD Unavailable Unavailable RING, CELESTINA VALLEJO MD Unavailable Unavailable RING, CELESTINA VALLEJO MD Unavailable Unavailable RING, CELESTINA VALLEJO MD Unavailable Unavailable RING, CELESTINA VALLEJO MD Unavailable Unavailable RING, CELESTINA VALLEJO MD Unavailable Unavailable RING, CELESTINA VALLEJO MD Unavailable Unavailable RING, CELESTINA VALLEJO MD Unavailable Unavailable RING, CELESTINA VALLEJO MD Unavailable Unavailable RING, CELESTINA VALLEJO MD Unavailable Unavailable RING, CELESTINA VALLEJO MD Unavailable Unavailable RING, CELESTINA VALLEJO MD Unavailable Unavailable RING, CELESTINA VALLEJO MD Unavailable Unavailable RING, CELESTINA VALLEJO MD Unavailable Unavailable RING, CELESTINA VALLEJO MD Unavailable Unavailable RING, CELESTINA VALLEJO MD Unavailable Unavailable RING, CELESTINA VALLEJO MD Unavailable Unavailable RING, CELESTINA VALLEJO MD Unavailable Unavailable RING, CELESTINA VALLEJO MD Unavailable Unavailable RING, CELESTINA VALLEJO MD Unavailable Unavailable RING, CELESTINA VALLEJO MD Unavailable Unavailable RING, CELESTINA VALLEJO MD Unavailable Unavailable RING, CELESTINA VALLEJO MD Unavailable Unavailable RING, CELESTINA VALLEJO MD Unavailable Unavailable RING, CELESTINA VALLEJO MD Unavailable Unavailable RING, CELESTINA VALLEJO MD Unavailable Unavailable RING, CELESTINA VALLEJO MD Unavailable Unavailable RING, CELESTINA VALLEJO MD Unavailable Unavailable RING, CELESTINA VALLEJO MD Unavailable Unavailable RING, CELESTINA VALLEJO MD Unavailable Unavailable RING, CELESTINA VALLEJO MD Unavailable Unavailable RING, CELESTINA VALLEJO MD Unavailable Unavailable RING, CELESTINA VALLEJO MD Unavailable Unavailable RING, CELESTINA VALLEJO MD Unavailable Unavailable RING, CELESTINA VALLEJO MD Unavailable Unavailable RING, CELESTINA VALLEJO MD Unavailable Unavailable RING, CELESTINA VALLEJO MD Unavailable Unavailable RING, CELESTINA VALLEJO MD Unavailable Unavailable RING, CELESTINA VALLEJO MD Unavailable Unavailable RING, CELESTINA VALLEJO MD Unavailable Unavailable RING, CELESTINA VALLEJO MD Unavailable Unavailable RING, CELESTINA VALLEJO MD Unavailable Unavailable Jeferson Story MD Unavailable Unavailable Jeferson Story MD Unavailable Unavailable Jeferson Story MD Unavailable Unavailable Jeferson Story MD Unavailable Unavailable Jeferson Story MD Unavailable Unavailable Jeferson Story MD Unavailable Unavailable Jeferson Story MD Unavailable Unavailable Jeferson Story MD Unavailable Unavailable Jeferson Story MD Unavailable Unavailable Jeferson Story MD Unavailable Unavailable Jeferson Story MD Unavailable Unavailable Jeferson Story MD Unavailable Unavailable Jeferson Story MD Unavailable Unavailable Jeferson Story MD Unavailable Unavailable Jeferson Story MD Unavailable Unavailable Jeferson Story MD Unavailable Unavailable Jeferson Story MD Unavailable Unavailable Jeferson Story MD Unavailable Unavailable Jeferson Story MD Unavailable Unavailable Jeferson Story MD Unavailable Unavailable Jeferson Story MD Unavailable Unavailable Jeferson Story MD Unavailable Unavailable Jeferson Story MD Unavailable Unavailable Jeferson Story MD Unavailable Unavailable Jeferson Story MD Unavailable Unavailable Jeferson Story MD Unavailable Unavailable Jeferson Story MD Unavailable Unavailable Jeferson Story MD Unavailable Unavailable Jeferson Story MD Unavailable Unavailable Jeferson Story MD Unavailable Unavailable Jeferson Story MD Unavailable Unavailable Jeferson Story MD Unavailable Unavailable Jeferson Story MD Unavailable Unavailable Jeferson Story MD Unavailable Unavailable Jeferson Story MD Unavailable Unavailable Jeferson Story MD Unavailable Unavailable Jeferson Story MD Unavailable Unavailable Jeferson Story MD Unavailable Unavailable Jeferson Story MD Unavailable Unavailable Jeferson Story MD Unavailable Unavailable Jeferson Story MD Unavailable Unavailable Jeferson Story MD Unavailable Unavailable Jeferson Story MD Unavailable Unavailable Jeferson Story MD Unavailable Unavailable Jeferson Story MD Unavailable Unavailable Jeferson Story MD Unavailable Unavailable Jeferson Story MD Unavailable Unavailable Jeferson Story MD Unavailable Unavailable Jeferson Story MD Unavailable Unavailable Jeferson Story MD Unavailable Unavailable Jeferson Story MD Unavailable Unavailable Jeferson Story MD Unavailable Unavailable Jeferson Story MD Unavailable Unavailable ANTECOL, Pancho HURLEY MD Unavailable Unavailable ANTECOL, Pancho HURLEY MD Unavailable Unavailable ANTECOL, Pancho HURLEY MD Unavailable Unavailable ANTECOL, Pancho HURLEY MD Unavailable Unavailable ANTECOL, Pancho HURLEY MD Unavailable Unavailable ANTECOL, Pancho HURLEY MD Unavailable Unavailable ANTECOL, Pancho HURLEY MD Unavailable Unavailable ANTECOL, Pancho HURLEY MD Unavailable Unavailable ANTECOL, Pancho HURLEY MD Unavailable Unavailable ANTECOL, Pancho HURLEY MD Unavailable Unavailable ANTECOL, Pancoh HURLEY MD Unavailable Unavailable ANTECOL, Pancho HURLEY MD Unavailable Unavailable ANTECOL, Pancho HURLEY MD Unavailable Unavailable ANTECOL, Pancho HURLEY MD Unavailable Unavailable ANTECOL, Pancho HURLEY MD Unavailable Unavailable ANTECOL, Pancho HURLEY MD Unavailable Unavailable ANTECOL, Pancho HURLEY MD Unavailable Unavailable ANTECOL, Pancho HURLEY MD Unavailable Unavailable ANTECOL, Pancho HURLEY MD Unavailable Unavailable ANTECOL, Pancho HURLEY MD Unavailable Unavailable ANTECOL, Pancho HURLEY MD Unavailable Unavailable ANTECOL, Pancho HURLEY MD Unavailable Unavailable ANTECOL, Pancho HURLEY MD Unavailable Unavailable ANTECOL, Pancho HURLEY MD Unavailable Unavailable ANTECOL, Pancho HURLEY MD Unavailable Unavailable ANTECOL, Pancho HURLEY MD Unavailable Unavailable ANTECOL, Pancho HURLEY MD Unavailable Unavailable ANTECOL, Pancho HURLEY MD Unavailable Unavailable ANTECOL, Pancho HURLEY MD Unavailable Unavailable ANTECOL, Pancho HURLEY MD Unavailable Unavailable ANTECOL, Pancho HURLEY MD Unavailable Unavailable ANTECOL, Pancho HURLEY MD Unavailable Unavailable ANTECOL, Pancho HURLEY MD Unavailable Unavailable ANTECOL, Pancho HURLEY MD Unavailable Unavailable ANTECOL, Pancho HURLEY MD Unavailable Unavailable ANTECOL, Pancho HURLEY MD Unavailable Unavailable ANTECOL, Pancho HURLEY MD Unavailable Unavailable ANTECOL, Pancho HURLEY MD Unavailable Unavailable ANTECOL, Pancho HURLEY MD Unavailable Unavailable ANTECOL, Pancho HURLEY MD Unavailable Unavailable ANTECOL, Pancho HURLEY MD Unavailable Unavailable ANTECOL, Pancho HURLEY MD Unavailable Unavailable ANTECOL, Pancho HURLEY MD Unavailable Unavailable ANTECOL, Pancho HURLEY MD Unavailable Unavailable ANTECOL, Pancho HURLEY MD Unavailable Unavailable ANTECOL, Pancho HURLEY MD Unavailable Unavailable ANTECOL, Pancho HURLEY MD Unavailable Unavailable ANTECOL, Pancho HURLEY MD Unavailable Unavailable ANTECOL, Pancho HURLEY MD Unavailable Unavailable ANTECOL, Pancho HURLEY MD Unavailable Unavailable ANTECOL, Pancho HURLEY MD Unavailable Unavailable ANTECOL, Pancho HURLEY MD Unavailable Unavailable ANTECOL, Pancho HURLEY MD Unavailable Unavailable ANTECOL, Pancho HURLEY MD Unavailable Unavailable ANTECOL, Pancho HURLEY MD Unavailable Unavailable Jumalon, M Laverne HATCH TENDER Unavailable Unavailable Jumalon, M Laverne HATCH TENDER Unavailable Unavailable Jumalon, M Laverne HATCH TENDER Unavailable Unavailable Jumalon, M Laverne HATCH TENDER Unavailable Unavailable Jumalon, M Laverne HATCH TENDER Unavailable Unavailable Jumalon, M Laverne HATCH TENDER Unavailable Unavailable Jumalon, M Laverne HATCH TENDER Unavailable Unavailable Jumalon, M Laverne HATCH TENDER Unavailable Unavailable Jumalon, M Laverne HATCH TENDER Unavailable Unavailable Jumalon, M Laverne HATCH TENDER Unavailable Unavailable Jumalon, M Laverne HATCH TENDER Unavailable Unavailable Jumalon, M Laverne HATCH TENDER Unavailable Unavailable Jumalon, M Laverne HATCH TENDER Unavailable Unavailable Jumalon, M Laverne HATCH TENDER Unavailable Unavailable Jumalon, M Laverne HATCH TENDER Unavailable Unavailable Jumalon, M Laverne HATCH TENDER Unavailable Unavailable Jumalon, M Laverne HATCH TENDER Unavailable Unavailable Jumalon, M Laverne HATCH TENDER Unavailable Unavailable Jumalon, M Laverne HATCH TENDER Unavailable Unavailable Jumalon, M Laverne HATCH TENDER Unavailable Unavailable Jumalon, M Laverne HATCH TENDER Unavailable Unavailable Jumalon, M Laverne HATCH TENDER Unavailable Unavailable Jumalon, M Laverne HATCH TENDER Unavailable Unavailable Jumalon, M Laverne HATCH TENDER Unavailable Unavailable Jumalon, M Laverne HATCH TENDER Unavailable Unavailable Jumalon, M Laverne HATCH TENDER Unavailable Unavailable Jumalon, M Laverne HATCH TENDER Unavailable Unavailable Jumalon, M Laverne HATCH TENDER Unavailable Unavailable PHYSICIAN, ER Unavailable Unavailable GIA, KATJA PARKER LANCE CREWMEMBER Unavailable Unavaila ble GIA, KATJA PARKER LANCE CREWMEMBER Unavailable Unavaila ble GIA, KATJA PARKER LANCE CREWMEMBER Unavailable Unavaila ble SAEED-JENSEN, TARYN LANCE CREWMEMBER Unavailable Unavaila ble SAEED-JENSEN, KATJA PARKER LANCE CREWMEMBER Unavailable Unavaila ble SAEED-JENSEN, KATJA PARKER LANCE CREWMEMBER Unavailable Unavaila ble SAEED-JENSEN, KATJA PARKER LANCE CREWMEMBER Unavailable Unavaila ble SAEED-JENSEN, KATJA PARKER LANCE CREWMEMBER Unavailable Unavaila ble SAEED-JENSEN, KATJA PARKER LANCE CREWMEMBER Unavailable Unavaila ble SAEED-JENSEN, KATJA PARKER LANCE CREWMEMBER Unavailable Unavaila ble SAEED-JENSEN, KATJA PARKER LANCE CREWMEMBER Unavailable Unavaila ble SAEED-JENSEN, KATJA PARKER LANCE CREWMEMBER Unavailable Unavaila ble SAEED-JENSEN, KATJA PARKER LANCE CREWMEMBER Unavailable Unavaila ble SAEED-JENSEN, KATJA PARKER LANCE CREWMEMBER Unavailable Unavaila ble SAEED-JENSEN, KATJA PARKER LANCE CREWMEMBER Unavailable Unavaila ble SAEED-JENSEN, KATJA PARKER LANCE CREWMEMBER Unavailable Unavaila ble SAEED-JENSEN, KATJA PARKER LANCE CREWMEMBER Unavailable Unavaila ble SAEED-JENSEN, KATJA PARKER LANCE CREWMEMBER Unavailable Unavaila ble SEAED-JENSEN, KATJA PARKER LANCE CREWMEMBER Unavailable Unavaila ble SAEED-JENSEN, KATJA PARKER LANCE CREWMEMBER Unavailable Unavaila ble SAEED-JENSEN, KATJA PARKER LANCE CREWMEMBER Unavailable Unavaila ble SAEED-JENSEN, KATJA PARKER LANCE CREWMEMBER Unavailable Unavaila ble SAEED-JENSEN, KATJA PARKER LANCE CREWMEMBER Unavailable Unavaila ble SAEED-JENSEN, KATJA PARKER LANCE CREWMEMBER Unavailable Unavaila ble SAEED-JENSEN, KATJA PARKER LANCE CREWMEMBER Unavailable Unavaila ble SAEED-JENSEN, KATJA PARKER LANCE CREWMEMBER Unavailable Unavaila ble SAEED-JENSEN, KATJA PARKER LANCE CREWMEMBER Unavailable Unavaila ble SAEED-JENSEN, KATJA PARKER LANCE CREWMEMBER Unavailable Unavaila ble SAEED-JENSEN, KATJA PARKER LANCE CREWMEMBER Unavailable Unavaila ble SAEED-JENSEN, KATJA PARKER LANCE CREWMEMBER Unavailable Unavaila ble SAEED-JENSEN, KATJA PARKER LANCE CREWMEMBER Unavailable Unavaila ble SAEED-JENSEN, KATJA PARKER LANCE CREWMEMBER Unavailable Unavaila ble SAEED-JESNEN, KATJA PARKER LANCE CREWMEMBER Unavailable Unavaila ble SAEED-JENSEN, KATJA PARKER LANCE CREWMEMBER Unavailable Unavaila ble SAEED-JENSEN, KATJA PARKER LANCE CREWMEMBER Unavailable Unavaila ble SAEED-JENSEN, KATJA PARKER LANCE CREWMEMBER Unavailable Unavaila ble SAEED-JENSEN, TARYN LANCE CREWMEMBER Unavailable Unavaila ble SAEED-JENSEN, TARYN LANCE CREWMEMBER Unavailable Unavaila ble SAEED-JENSEN, TARYN LANCE CREWMEMBER Unavailable Unavaila ble SAEED-JENSEN, TARYN LANCE CREWMEMBER Unavailable Unavaila ble SAEED-JENSEN, TARYN LANCE CREWMEMBER Unavailable Unavaila ble SAEED-JENSEN, TARYN LANCE CREWMEMBER Unavailable Unavaila ble SAEED-JENSEN, TARYN LANCE CREWMEMBER Unavailable Unavaila ble SAEED-JENSEN, TARYN LANCE CREWMEMBER Unavailable Unavaila ble SAEED-JENSEN, TARYN LANCE CREWMEMBER Unavailable Unavaila ble SAEED-JENSEN, TARYN LANCE CREWMEMBER Unavailable Unavaila ble Becca GARLAND MD Unavailable Unavailable Becca GARLAND MD Unavailable Unavailable Becca GARLAND MD Unavailable Unavailable Becca GARLAND MD Unavailable Unavailable Becca GARLAND MD Unavailable Unavailable Becca GARLAND MD Unavailable Unavailable Becca GARLAND MD Unavailable Unavailable Becca GARLAND MD Unavailable Unavailable Becca GARLAND MD Unavailable Unavailable Becca GARLAND MD Unavailable Unavailable Becca GARLAND MD Unavailable Unavailable Becca GARLAND MD Unavailable Unavailable Becca GARLAND MD Unavailable Unavailable Becca GARLAND MD Unavailable Unavailable Becca GARLAND MD Unavailable Unavailable Becca GARLAND MD Unavailable Unavailable Becca GARLAND MD Unavailable Unavailable Becca GARLAND MD Unavailable Unavailable Becca GARLAND MD Unavailable Unavailable Becca GARLAND MD Unavailable Unavailable Becca GARLAND MD Unavailable Unavailable Becca GARLAND MD Unavailable Unavailable Becca GARLAND MD Unavailable Unavailable Becca GARLAND MD Unavailable Unavailable Becca GARLAND MD Unavailable Unavailable Becca GARLAND MD Unavailable Unavailable Becca GARLAND MD Unavailable Unavailable Becca GARLAND MD Unavailable Unavailable Becca GARLAND MD Unavailable Unavailable Becca GARLAND MD Unavailable Unavailable Becca GARLAND MD Unavailable Unavailable Becca GARLAND MD Unavailable Unavailable Becca GARLAND MD Unavailable Unavailable Becca GARLAND MD Unavailable Unavailable Becca GARLAND MD Unavailable Unavailable Becca GARLAND MD Unavailable Unavailable Becca GARLAND MD Unavailable Unavailable Becca GARLAND MD Unavailable Unavailable Becca GARLAND MD Unavailable Unavailable Becca GARLAND MD Unavailable Unavailable Becca GARLAND MD Unavailable Unavailable Becca GARLAND MD Unavailable Unavailable Becca GARLAND MD Unavailable Unavailable Becca GARLAND MD Unavailable Unavailable Becca GARLAND MD Unavailable Unavailable HAHER, R RUBIA MD Unavailable Unavailable HAHER, R RUBIA MD Unavailable Unavailable HAHER, R RUBIA MD Unavailable Unavailable HAHER, R RUBIA MD Unavailable Unavailable HAHER, R RUBIA MD Unavailable Unavailable HAHER, R RUBIA MD Unavailable Unavailable HAHER, R RUBIA MD Unavailable Unavailable HAHER, R RUBIA MD Unavailable Unavailable HAHER, R RUBIA MD Unavailable Unavailable HAHER, R RUBIA MD Unavailable Unavailable HAHER, R RUBIA MD Unavailable Unavailable HAHER, R RUBIA MD Unavailable Unavailable HAHER, R RUBIA MD Unavailable Unavailable HAHER, R RUBIA MD Unavailable Unavailable HAHER, R RUBIA MD Unavailable Unavailable HAHER, R RUBIA MD Unavailable Unavailable HAHER, R RUBIA MD Unavailable Unavailable HAHER, R RUBIA MD Unavailable Unavailable HAHER, R RUBIA MD Unavailable Unavailable HAHER, R RUBIA MD Unavailable Unavailable HAHER, R RUBIA MD Unavailable Unavailable HAHER, R RUBIA MD Unavailable Unavailable HAHER, R RUBIA MD Unavailable Unavailable HAHER, R RUBIA MD Unavailable Unavailable HAHER, R RUBIA MD Unavailable Unavailable HAHER, R RUBIA MD Unavailable Unavailable HAHER, R RUBIA MD Unavailable Unavailable Shaben, E Katja HATCH TENDER Unavailable Unavailable Shaben, E Katja HATCH TENDER Unavailable Unavailable Shaben, E Katja HATCH TENDER Unavailable Unavailable Shaben, E Katja HATCH TENDER Unavailable Unavailable Shaben, E Katja HATCH TENDER Unavailable Unavailable Shaben, E Katja HATCH TENDER Unavailable Unavailable Shaben, E Katja HATCH TENDER Unavailable Unavailable Shaben, E Katja HATCH TENDER Unavailable Unavailable Shaben, E Katja HATCH TENDER Unavailable Unavailable Shaben, E Katja HATCH TENDER Unavailable Unavailable Shaben, E Katja HATCH TENDER Unavailable Unavailable Shaben, E Katja HATCH TENDER Unavailable Unavailable Shaben, E Katja HATCH TENDER Unavailable Unavailable Shaben, E Katja HATCH TENDER Unavailable Unavailable Shaben, E Katja HATCH TENDER Unavailable Unavailable Shaben, E Katja HATCH TENDER Unavailable Unavailable Shaben, E Katja HATCH TENDER Unavailable Unavailable Shaben, E Katja HATCH TENDER Unavailable Unavailable Shaben, E Katja HATCH TENDER Unavailable Unavailable Shaben, E Katja HATCH TENDER Unavailable Unavailable Shaben, E Katja HATCH TENDER Unavailable Unavailable Shaben, E Katja HATCH TENDER Unavailable Unavailable Shaben, E Katja HATCH TENDER Unavailable Unavailable Shaben, E Katja HATCH TENDER Unavailable Unavailable Re-disclosure Warning The records that you are about to access may contain information from federally-assisted alcohol or drug abuse programs. If such information is present, then the following federally mandated warning applies: This information has been disclosed to you from records protected by federal confidentiality rules (42 CFR part 2). The federal rules prohibit you from making any further disclosure of this information unless further disclosure is expressly permitted by the written consent of the person to whom it pertains or as otherwise permitted by 42 CFR part 2. A general authorization for the release of medical or other information is NOT sufficient for this purpose. The Federal rules restrict any use of the information to criminally investigate or prosecute any alcohol or drug abuse patient.The records that you are about to access may contain highly sensitive health information, the redisclosure of which is protected by Article 27-F of the [facility] Public Health law. If you continue you may have access to information: Regarding HIV / AIDS; Provided by facilities licensed or operated by the [facility] Office of Mental Health; or Provided by the [facility] Office for People With Developmental Disabilities. If such information is present, then the following [facility] mandated warning applies: This information has been disclosed to you from confidential records which are protected by state law. State law prohibits you from making any further disclosure of this information without the specific written consent of the person to whom it pertains, or as otherwise permitted by law. Any unauthorized further disclosure in violation of state law may result in a fine or correction sentence or both. A general authorization for the release of medical or other information is NOT sufficient authorization for further disc losure. Advance Directives Directive Description Education Specialist Resource Engineer Status Observation Descr iption Data Source(s) Ebola Screening Performed completed Ebol a Screening Performed [place] ([facility]) Note: Within the last month, have you tr aveled outside of the [place]? -NO packet given Pt Bill of Rights, Priv Prac, Ad Dir completed packet given Pt Bill of Rights, Priv Prac, Ad Dir [place] ([facility]) Note: Pt declined AD packet Ebola Screening Performed completed Ebol a Screening Performed [place] ([facility]) Note: Within the last month, have you tr aveled outside of the [place]? -NO Ebola Screening Performed completed Ebol a Screening Performed [place] ([facility]) Note: Within the last month, have you tr aveled outside of the [place]? -NO Allergies and Adverse Reactions Type Description Substance Reaction Status Data Source(s ) Allergy to substance No Known Allergies No known allergies (situation ) [place] ([facility]) Allergy to substance No Known Allergies No known allergies (situation ) [place] ([facility]) Allergy to substance No Known Allergies No known allergies (situation ) [place] ([facility]) Allergy to substance No Known Allergies No known allergies (situation ) [place] ([facility]) Allergy to substance No Known Allergies No known allergies (situation ) [place] ([facility]) Family History Family Member Name Family Member Gender Family Member Status Date o f Status Description Data Source(s) Unknown Female Problem [facility] ([facility]) Encounters Encounter Providers Location Date Indications Data Source(s ) Outpatient Attender: DENNIS griffiths 08/04/2020 11:00:00 AM EST [facility]ENT ([facility], [facility]) Laverne Orona [place], LANCE CREWMEMBER: [address], [place] [address], Ph. Attender: Laverne Ho [facility] 07/28/2020 12:00:00 AM EST ATHE NA ([facility]) Lavernemoni Ho, LANCE CREWMEMBER: [address], [place] [address], Ph. Attender: Laverne [place] [facility] 06/29/2020 12:00:00 AM EST ATHE NA ([facility]) Laverne Ho, LANCE CREWMEMBER: [address], [place] [address], Ph. Attender: Laverne [place] [facility] 06/29/2020 12:00:00 AM EST ATHE NA ([facility]) Laverne Yeyo Ho, LANCE CREWMEMBER: [address], [place] [address], Ph. Attender: Laverne Ho HATCH TENDER [place] - [facility] 06/01/2020 12:00:00 AM EST ATHE NA ([facility]) Laverne Ho, LANCE CREWMEMBER: [address], [place] [address], Ph. Attender: Laverne Ho [facility] - [facility] 06/01/2020 12:00:00 AM EST ATHE NA ([facility]) Laverne Ho, LANCE CREWMEMBER: [address], [place] [address], Ph. Attender: Laverne Poojakaylaalex [facility] 06/01/2020 12:00:00 AM EST ATHE NA ([facility]) Outpatient Attender: Javi Beckman [facility] 05/31/2020 09:00:00 AM EST MEDENT ([facility]) Laverne Ho, LANCE CREWMEMBER: [address], [place] [address], Ph. Attender: Laverne Ho [facility] 05/06/2020 12:00:00 AM EDT ATHE NA ([facility]) Laverne Ho, LANCE CREWMEMBER: [address], [place] [address], Ph. Attender: Laverne Poojakaylaalex [facility] 05/06/2020 12:00:00 AM EDT ATHE NA ([facility]) Laverne Ho, LANCE CREWMEMBER: [address], [place] [address], Ph. Attender: Laverne [place] [facility] 05/06/2020 12:00:00 AM EDT ATHE NA ([facility]) Laverne Ho, LANCE CREWMEMBER: [address], [place] [address], Ph. Attender: Laverne Ho [facility] 05/06/2020 12:00:00 AM EDT ATHMoni RAE ([facility]) Outpatient<td ID="encounterTypeDescripti onID0">Chronic Disease Follow- up</td><td>Katja Mccall NP</td><td>[facility]</td><td>05/05/2020</td><td><content ID="encounterDiagnosisID0-0"> Diabetes Mellitus Type 2</content>, <content ID="encounterDiagnosisID0- 1">Essential Hypertension Benign</content>, <content ID="encounterDiagnosisID0- 2">Osteoarthritis Generalized</content>, <content ID="encounterDiagnosisID0- 3">Cirrhosis</content>, <content ID="encounterDiagnosisID0-4">Eustachian Tube</content></td> Attender: Katja Mccall [facility] 05/05/2020 11:08:00 AM EDT - 05/05/2020 12:04:36 PM EDT CirrhosisEustachian TubeDiabetes Mellitus Type 2Osteoarthritis GeneralizedEssential Hypertension Benign [place] ([facility]) Cirrhosis Eustachian Tube Diabetes Mellitus Type 2 Osteoarthritis Generalized Essential Hypertension Benign Laverne Ho, LANCE CREWMEMBER: [address], [place] [address], Ph. Attender: Laverne [place] [facility] 03/29/2020 12:00:00 AM EDT SRIKANTH RAE ([facility]) Laverne Ho, LANCE CREWMEMBER: [address], [place] [address], Ph. Attender: Laverne Ho [facility] 03/29/2020 12:00:00 AM EDT ATHE NA ([facility]) Laverne Ho, LANCE CREWMEMBER: [address], [place] [address], Ph. Attender: Laverne Ho [facility] - [facility] 03/29/2020 12:00:00 AM EDT ATHMoni NA ([facility]) Laverne Ho, LANCE CREWMEMBER: [address], [place] [address], Ph. Attender: Laverne Ho [facility] 03/29/2020 12:00:00 AM EDT ATHMoni RAE ([facility]) Laverne Ho, LANCE CREWMEMBER: [address], [place] [address], Ph. Attender: Laverne Ho [facility] 03/29/2020 12:00:00 AM EDT ATHMoni RAE ([facility]) Unknown<td ID="encounterTypeDescriptionI D1">Correspondence</td><td>Katja Mccall NP</td><td></td><td>03/24/2020</td><td></td> Attender: Katja MIRZAP 03/24/2020 10:10:00 AM EDT - 03/24/2020 11:59:00 PM EDT [place] ([facility]) Outpatient Attender: Katja CHAN 03/14/2020 10:54:00 A M EDT LAB 1 OF 1 [facility] LAB 1 OF 1 Laverne Ho, LANCE CREWMEMBER: [address], [place] [address], Ph. Attender: Laverne Manzoalex [facility] 02/19/2020 12:00:00 AM EDT ATHE NA ([facility]) Laverne Ho, LANCE CREWMEMBER: [address], [place] [address], Ph. Attender: Laverne Ho [facility] - [facility] 02/19/2020 12:00:00 AM EDT ATHE NA ([facility]) Laverne Ho, LANCE CREWMEMBER: [address], [place] [address], Ph. Attender: Laverne Ho [facility] - [facility] - [facility] 02/19/2020 12:00:00 AM EDT ATHE NA ([facility]) Laverne Ho, LANCE CREWMEMBER: [address], [place] [address], Ph. Attender: Laverne Ho [facility] - [facility] 02/19/2020 12:00:00 AM EDT ATHE NA ([facility]) Laverne Ho, LANCE CREWMEMBER: [address], [place] [address], Ph. Attender: Laverne Ho [facility] - [facility] 02/19/2020 12:00:00 AM EDT ATHE NA ([facility]) Laverne Ho, LANCE CREWMEMBER: [address], [place] [address], Ph. Attender: Laverne Ho [facility] - [facility] 02/19/2020 12:00:00 AM EDT ATHE NA ([facility]) Obstetrics<td ID="encounterTypeDescripti onID2">Lab Order</td><td>Vera Shaben LANCE CREWMEMBER</td><td></td><td>02/15/2020</td><td></td> Attender: Katja Mccall [facility] 02/15/2020 10:47:00 AM EDT - 02/15/2020 11:59:00 PM EDT [place] [facility]) Laverne Ho, LANCE CREWMEMBER: [address], [place] [address], Ph. Attender: Laverne Ho [facility] - [facility] 01/21/2020 12:00:00 AM EDT ATHMoni NA ([facility]) Laverne Ho, LANCE CREWMEMBER: [address], [place] [address], Ph. Attender: Laverne Ho [facility] 01/21/2020 12:00:00 AM EDT ATHE NA ([facility]) Laverne Ho, LANCE CREWMEMBER: [address], [place] [address], Ph. Attender: Laverne Ho [facility] - [facility] 01/21/2020 12:00:00 AM EDT ATHE NA ([facility]) Laverne Ho, LANCE CREWMEMBER: [address], [place] [address], Ph. Attender: Laverne Ho [facility] - [facility] 01/21/2020 12:00:00 AM EDT ATHMoni NA ([facility]) Laverne Ho, LANCE CREWMEMBER: [address], [place] [address], Ph. Attender: Lavernemoni Ho [facility] - [facility] 01/21/2020 12:00:00 AM EDT ATHMoni RAE ([facility]) Laverne Ho, LANCE CREWMEMBER: [address], [place] [address], Ph. Attender: Laverne Ho [facility] 01/21/2020 12:00:00 AM EDT ATHMoni NA ([facility]) Laverne Ho, LANCE CREWMEMBER: [address], [place] [address], Ph. Attender: Laverne Ho [facility] - [facility] 01/21/2020 12:00:00 AM EDT ATHMoni RAE ([facility]) Unknown<td ID="encounterTypeDescriptionI D3">Standing Order</td><td>Katja Mccall NP</td><td></td><td>01/13/2020</td><td></td> Attender: Kataj Mccall [facility] 01/13/2020 01:51:00 PM EDT - 01/13/2020 11:59:00 PM EDT [place] [facility]) Laverne Ho, LANCE CREWMEMBER: [address], [place] [address], Ph. Attender: Laverne [place] [facility] - [facility] 12/10/2019 12:00:00 AM EDT ETHAN ([facility]) Laverne Ho, LANCE CREWMEMBER: [address], [place] [address], Ph. Attender: Laverne [facility] - [facility] 12/10/2019 12:00:00 AM EDT ETHAN ([facility]) Laverne oH, LANCE CREWMEMBER: [address], [place] [address], Ph. Attender: Laverne Ho H[employer] TENDER [place] [facility] Office 12/10/2019 12:00:00 AM EDT ETHAN ([facility]) Laverne Ho, LANCE CREWMEMBER: [address], [place] [address], Ph. Attender: Laverne Ho [place] T[place] [facility] 12/10/2019 12:00:00 AM EDT ETHAN ([facility]) Laverne Ho, LANCE CREWMEMBER: [address], [place] [address], Ph. Attender: Laverne Ho [place] [facility] 12/10/2019 12:00:00 AM EDT ETHAN ([facility]) Laverne Ho, LANCE CREWMEMBER: [address], [place] [address], Ph. Attender: Laverne Ho HATCH TENDER [place] - [facility] 12/10/2019 12:00:00 AM EDT ETHAN ([facility]) Laverne Ho, LANCE CREWMEMBER: [address], [place] [address], Ph. Attender: Laverne Ho [place] [facility] 12/10/2019 12:00:00 AM EDT ETHAN ([facility]) Laverne Ho, LANCE CREWMEMBER: [address], [place] [address], Ph. Attender: Laverne Ho H[place] TENDER [place] [facility] 12/10/2019 12:00:00 AM EDT ETHAN ([facility]) Outpatient Attender: XAVI BRADFORD MD Main Office 12/09/2019 10:45:00 AM EDT MEDENT ([facility]) Inpatient Attender: ER PHYSICIAN 12/04/2019 02:11:00 PM E DT [facility] ( in Healthcare facility) Attender: GENEVIEVE EDWARDS MDAdmitter: GENEVIEVE EDWARDS MD 12/04/2019 02:11:00 PM EDT [facility] Inpatient Attender: JENNIFER CRUZ MDA ttender: GENEVIEVE EDWARDS MDAttender: ER PHYSICIANAdmitter: GENEVIEVE EDWARDS MD 12/04/2019 10:17:55 AM EDT [facility] Inpatient Attender: Shae Castillo VAttender: GENEVIEVE EDWARDS MDAttender: ER PHYSICIANAdmitter: GENEVEIVE EDWARDS MD 12/04/2019 09:31:00 AM EDT - 12/07/2019 02:15:00 PM EDT ASCIES VOLUME OVERLOAD CIRRHOSIS [facility] ASCIES VOLUME OVERLOAD CIRRHOSIS Patient discharged. Outpatient<td ID="encounterTypeDescripti onID4">Telephone Encounter</td><td>Kathleen Guillory NP</td><td></td><td>12/03/2019</td><td><content ID="encounterDiagnosisID4-0">Ascites</content>, <content ID="encounterDiagnosisID4-1">Cirrhosis</content></td> Attender: KATHLEEN GUILLORY NP 12/03/2019 03:03:00 PM EDT - 12/03/2019 11:59:00 PM EDT CirrhosisAscitesCirrhosisAscites [place] ([facility]) Cirrhosis Ascites Cirrhosis Ascites Outpatient Referrer: Katja CHAN 12/02/2019 12:24:00 P M EDT [facility] Outpatient Referrer: Katja CHAN 12/02/2019 12:12:00 P M EDT [facility] Outpatient Referrer: Katja CHAN 12/01/2019 04:07:00 P M EDT [facility] Outpatient Attender: Katja CHAN 12/01/2019 03:0 0:00 PM EDT ascites of liver r10.9 [facility] ascites of liver r10.9 Outpatient Referrer: Katja Mccall [facility] 12/01/2019 02:43:00 P M EDT [facility] Unknown<td ID="encounterTypeDescriptionI D5">Referral Order</td><td>Katja Mccall NP</td><td></td><td>12/01/2019</td><td></td> Attender: Katja Mccall [facility] 12/01/2019 02:11:00 PM EDT - 12/01/2019 11:59:00 PM EDT [facility]) Outpatient Referrer: Katja MIRZAP 12/01/2019 02:04:00 P M EDT [facility] Outpatient Referrer: Katja Mccall [facility] 12/01/2019 01:59:00 P M EDT [facility] Outpatient Referrer: KATJA NIELSEN NP 0 12/01/2019 01:56:00 PM EDT [facility] Unknown<td ID="encounterTypeDescriptionI D6">Referral Order</td><td>Katja Mccall NP</td><td></td><td>12/01/2019</td><td></td> Attender: Katja MIRZAP 12/01/2019 12:31:00 PM EDT - 12/01/2019 11:59:00 PM EDT [facility]) Outpatient<td ID="encounterTypeDescripti onID7">Acute L3</td><td>Katja Mccall NP</td><td>[facility]</td><td>12/01/2019</td><td><content ID="encounterDiagnosisID7-0">Diabetes Mellitus Type 2</content>, <content ID="encounterDiagnosisID7-1">Essential Hypertension Benign</content>, <content ID="encounterDiagnosisID7-2">Edema</content>, <content ID="encounterDiagnosisID7-3">Abdominal Pain</content></td> [facility] 11:10:00 AM EDT - 12/01/2019 12:33:01 PM EDT Abdominal PainEdemaAbdominal PainEdemaAbdominal PainEdemaDiabetes Mellitus Type 2Diabetes Mellitus Type 2Diabetes Mellitus Type 2Essential Hypertension BenignEssential Hypertension BenignEssential Hypertension Benign [place] ([facility]) Abdominal Pain Edema Abdominal Pain Edema Abdominal Pain Edema Diabetes Mellitus Type 2 Diabetes Mellitus Type 2 Diabetes Mellitus Type 2 Essential Hypertension Benign Essential Hypertension Benign Essential Hypertension Benign Laverne Ho, LANCE CREWMEMBER: [address], [place] [address], Ph. Attender: Laverne Ho [facility] - [facility] 11/12/2019 12:00:00 AM EDT ETHAN ([facility]) Laverne Ho, LANCE CREWMEMBER: [address], [place] [address], Ph. Attender: Lavernemoni Ho [facility] - [facility] 11/12/2019 12:00:00 AM EDT ETHAN ([facility]) Laverne Ho, LANCE CREWMEMBER: [address], [place] [address], Ph. Attender: Laverne Ho [facility] 11/12/2019 12:00:00 AM EDT ETHAN ([facility]) Laverne Ho, LANCE CREWMEMBER: [address], [place] [address], Ph. Attender: Laverne Ho [facility] [place] [facility] 11/12/2019 12:00:00 AM EDT ETHAN ([facility]) Laverne Ho, LANCE CREWMEMBER: [address], [place] [address], Ph. Attender: Lavernemoni Ho [facility] [place] [facility] 11/12/2019 12:00:00 AM EDT ETHAN ([facility]) Laverne Ho, LANCE CREWMEMBER: [address], [place] [address], Ph. Attender: Laverne Ho H[place] TENDER [place] [facility] 11/12/2019 12:00:00 AM EDT ETHAN ([facility]) Laverne Ho, LANCE CREWMEMBER: [address], [place] [address], Ph. [facility]: [facility] 11/12/2019 12:00:00 AM EDT ETHAN ([facility]) Laverne oH, LANCE CREWMEMBER: [address], [place] [address], Ph. [facility]: [facility] 11/12/2019 12:00:00 AM EDT ETHAN ([facility]) Laverne Ho, LANCE CREWMEMBER: [address], [place] [address], Ph. [facility]: [facility] 11/12/2019 12:00:00 AM EDT ETHAN ([facility]) Unknown<td ID="encounterTypeDescriptionI D8">[Patient Encounter]</td><td>Katja Mccall NP</td><td>[facility]</td><td>10/26/2019</td><td></td> Attender: Katja Mccall [facility] 10/26/2019 11:39:00 AM EDT - 10/26/2019 11:59:00 PM EDT [facility]) Laverne Ho, LANCE CREWMEMBER: [address], [address], [place] [address], Ph. Attender: Laverne Ho [facility] - [facility] 10/15/2019 12:00:00 AM EDT ATHE NA ([facility]) Laverne Ho, LANCE CREWMEMBER: [address], [address], [place] [address], Ph. Attender: Laverne Ho [facility] - [facility] 10/15/2019 12:00:00 AM EDT ATHE NA ([facility]) Laverne Ho, LANCE CREWMEMBER: [address], [place] [address], Ph. Attender: Laverne Ho [facility] - [facility] 10/15/2019 12:00:00 AM EDT ATHE NA ([facility]) Laverne Ho, LANCE CREWMEMBER: [address], [address], [place] [address], Ph. Attender: Laverne Ho [facility] - [facility] 10/15/2019 12:00:00 AM EDT ATHE NA ([facility]) Laverne Ho, LANCE CREWMEMBER: [address], [address], [place] [address], Ph. Attender: Laverne Ho [facility] - [facility] 10/15/2019 12:00:00 AM EDT ATHE NA ([facility]) Laverne Ho, LANCE CREWMEMBER: [address], [address], [place] [address], Ph. Attender: Lavernemoni Ho [facility] - [facility] 10/15/2019 12:00:00 AM EDT ATHE NA ([facility]) Laverne Ho, LANCE CREWMEMBER: [address], [place] [address], Ph. Attender: Laverne Ho [facility] - [facility] 10/15/2019 12:00:00 AM EDT ATHE NA ([facility]) Laverne Ho, LANCE CREWMEMBER: [address], [address], [place] [address], Ph. Attender: Laverne Ho [facility] - [facility] 10/15/2019 12:00:00 AM EDT ATHMoni NA ([facility]) Laverne Ho, LANCE CREWMEMBER: [address], [place] [address], Ph. Attender: Laverne Ho [facility] - [facility] 10/15/2019 12:00:00 AM EDT ATHMoni NA ([facility]) Laverne Ho, LANCE CREWMEMBER: [address], [place] [address], Ph. Attender: Laverne Ho [facility] - [facility] 10/15/2019 12:00:00 AM EDT ATHE NA ([facility]) Unknown<td ID="encounterTypeDescriptionI D9">[Patient Encounter]</td><td>Katja Mccall LANCE CREWMEMBER</td><td></td><td>10/14/2019</td><td></td> Attender: Katja Mccall HATCH TENDER 10/14/2019 02:18:00 PM EDT - 10/14/2019 11:59:00 PM EDT [facility]) Outpatient<td ID="encounterTypeDescripti onID10">Establish Care</td><td>Katja Mccall LANCE CREWMEMBER</td><td>[facility]</td><td>10/08/2019</td><td><content ID="[id number]">Diabetes Mellitus Type 2</content>, <content ID="[id number]">Essential Hypertension Benign</content>, <content ID="bukdvcqzbRjszojpnzJW91-0">Osteoarthritis Generalized</content></td> Attender: Katja Mccall [facility] 10/08/2019 09:53:00 AM EDT - 10/08/2019 11:05:01 AM EDT Diabetes Mellitus Type 2Diabetes Mellitu s Type 2Diabetes Mellitus Type 2Diabetes Mellitus Type 2Osteoarthritis GeneralizedEssential Hypertension BenignOsteoarthritis GeneralizedEssential Hypertension BenignOsteoarthritis GeneralizedEssential Hypertension BenignOsteoarthritis GeneralizedEssential Hypertension Benign [place] ([facility]) Diabetes Mellitus Type 2 Diabetes Mellitus Type 2 Diabetes Mellitus Type 2 Diabetes Mellitus Type 2 Osteoarthritis Generalized Essential Hypertension Benign Osteoarthritis Generalized Essential Hypertension Benign Osteoarthritis Generalized Essential Hypertension Benign Osteoarthritis Generalized Essential Hypertension Benign Laverne Ho, LANCE CREWMEMBER: [address], [place] [address], Ph. Attender: Laverne Ho [facility] 10/07/2019 12:00:00 AM EDT SRIKANTH RAE ([facility]) Laverne Orona Jovanyalex, LANCE CREWMEMBER: [address], [facility] [place] [address], Ph. Attender: Laverne Ho [facility] 10/07/2019 12:00:00 AM EDT SRIKANTH RAE ([facility]) Laverne Ho, LANCE CREWMEMBER: [address], [place] [address], Ph. Attender: Laverne Manzoon HATCH TENDER [place] - [facility] 10/07/2019 12:00:00 AM EDT ATHE NA ([facility]) Laverne Ho, LANCE CREWMEMBER: [address], [address], [place] [address], Ph. Attender: Laverne Ho [facility] - [facility] 10/07/2019 12:00:00 AM EDT ATHE NA ([facility]) Laverne Ho, LANCE CREWMEMBER: [address], [address], [place] [address], Ph. Attender: Laverne Ho [facility] - [facility] 10/07/2019 12:00:00 AM EDT ATHE NA ([facility]) Laverne Ho, LANCE CREWMEMBER: [address], [address], [place] [address], Ph. Attender: Laverne Ho [facility] - [facility] 10/07/2019 12:00:00 AM EDT ATHE NA ([facility]) Laverne Ho, LANCE CREWMEMBER: [address], [address], [place] [address], Ph. Attender: Lavernemoni Manzoalex [facility] - [facility] 10/07/2019 12:00:00 AM EDT ATHE NA ([facility]) Laverne Ho, LANCE CREWMEMBER: [address], [address], [place] [address], Ph. Attender: Laverne Ho [facility] - [facility] 10/07/2019 12:00:00 AM EDT ATHE NA ([facility]) Laverne Orona [place], LANCE CREWMEMBER: [address], [address], [place] [address], Ph. Attender: Laverne Ho [facility] 10/07/2019 12:00:00 AM EDT ATHE NA ([facility]) Laverne Ho, LANCE CREWMEMBER: [address], [place] [address], Ph. Attender: Laverne Ho [facility] 10/07/2019 12:00:00 AM EDT ATHE NA ([facility]) Laverne Ho, LANCE CREWMEMBER: [address], [place] [address], Ph. Attender: Laverne Ho [facility] 10/07/2019 12:00:00 AM EDT ATHE NA ([facility]) Recurring Patient Referrer: Slava Ervin MD 09/23/2019 11:3 8:54 AM [facility] Outpatient Attender: Jeferson Story MD [facility] Internal Med at [facility] 09/21/2019 11:20:00 AM EST [facility] ([facility]) Outpatient Attender: Mikey Burks IIReferrer: Slava Ervin MD 09/16/2019 07:29:42 AM [facility] Recurring Patient Referrer: Slava Ervin MD 09/15/2019 02:5 0:51 PM [facility] Outpatient<td ID="encounterTypeDescripti onID11">Walk-In</td><td>Kathleen Guillory NP</td><td>[facility]</td><td>09/07/2019</td><td><content ID="[id number]">Idiopathic Peripheral Neuropathy</content>, <content ID="zbjvgbuosOpvcugaknAC64-4">Chronic Pain</content>, <content ID="ebpifndonPwuuxefviBV40-3">Essential Hypertension Benign</content>, <content ID="[id number]">Opioid Withdrawal</content></td> Attender: KATHLEEN GUILLORY LANCE CREWMEMBER [facility] 09/07/2019 01:23:00 PM EST - 09/07/2019 02:38:09 PM EST Opioid WithdrawalChronic PainOpioid With drawalChronic PainOpioid WithdrawalChronic PainOpioid WithdrawalChronic PainOpioid WithdrawalChronic PainIdiopathic Peripheral NeuropathyIdiopathic Peripheral NeuropathyIdiopathic Peripheral NeuropathyIdiopathic Peripheral NeuropathyIdiopathic Peripheral NeuropathyEssential Hypertension BenignEssential Hypertension BenignEssential Hypertension BenignEssential Hypertension BenignEssential Hypertension Benign [place] ([facility]) Opioid Withdrawal Chronic Pain Opioid Withdrawal Chronic Pain Opioid Withdrawal Chronic Pain Opioid Withdrawal Chronic Pain Opioid Withdrawal Chronic Pain 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 This is one of two codes replacing CVX 15, which is being retired. 05/05/2020 12:17:00 PM EDT completed Influenza 2 05/05/2020 Complete (Refused - Patient objection) [facility] [place] ( [facility]) Medications Medication Brand Name Start Date Product Form Dose Route Admi nistrative Instructions Pharmacy Instructions Status Indications Reaction Description Data Source(s) Amoxicillin 875 MG / Clavulanate 125 MG Oral Tablet Am oxicillin/Clavulanate Potassium 08/04/2020 12:00:00 AM EST ORAL active MEDENT [facility] 4-240 mg 07/12/2020 12:00:00 AM EST tablet, IR - ER, biphas ic 24hr 90 TAKE ONE TABLET BY MOUTH EVERY DAY TAKE ONE TABLET BY MOUTH EVERY DAY SOLD: 07/15/2020 [facility] Hydrochlorothiazide 12.5 MG Oral Tablet HYDROCHLOROTHIAZIDE 07/12/2020 12:00:00 AM EST tablet 90 TAKE ONE TABLET BY MOUTH SAADIA DAY TAKE ONE TABLET BY MOUTH EVERY DAY SOLD: 07/15/2020 [facility] Furosemide 40 MG Oral Tablet [Lasix] Lasix 05/31/2020 12:00:00 AM EST ORAL active MEDENT ([facility]) Spironolactone 50 MG Oral Tablet Spironolactone 05/31/2020 12:00:00 A M EST ORAL active MEDENT ([facility]) Hydrochlorothiazide 12.5 MG Oral Tablet hydroCHLOROthi azide 12.5 MG Oral Tablet hydroCHLOROthiazide 12.5 MG Oral Tablet 05/05/2020 12:00:00 AM EDT active hydrochlorothiazide 12.5 MG Oral Tablet [facility] HR trandolapril 4 MG / Verapamil hydr ochloride 240 MG Extended Release Oral Tablet [Tarka] Tarka 4-240 MG Oral Tablet Extended Release Tarka 4-240 MG Oral Tablet Extended Release 05/05/2020 12:00:00 AM EDT 1 active 24 HR trandolapril 4 MG / verapamil hydrochloride 240 MG Extended Release Oral Tablet [Tarka] [facility] tizanidine 4 MG Oral Tablet tiZANidine HCl 4 MG Oral T ablet tiZANidine HCl 4 MG Oral Tablet 04/29/2020 12:00:00 AM EDT 1 active tizanidine 4 MG Oral Tablet [place] ([facility] 12 HR Oxycodone Hydrochloride 10 MG Exte nded Release Oral Tablet [Oxycontin] OxyCONTIN 10 MG Oral Tablet ER 12 Hour Abuse-Deterrent OxyCONTIN 10 MG Oral Tablet ER 12 Hour Abuse-Deterrent 04/09/2020 12:00:00 AM EDT active Abuse-Deterrent 12 HR oxycodone hydrochl oride 10 MG Extended Release Oral Tablet [Oxycontin] [facility] ([facility] Methadone Hydrochloride 10 MG Oral Tablet Methadone HCL 12/08/2019 12:00:00 AM EDT ORAL active [facility] 24 HR trandolapril 4 MG / Verapamil hydr ochloride 240 MG Extended Release Oral Tablet [Tarka] Tarka 12/08/2019 12:00:00 AM EDT ORAL co mpleted MEDENT ([facility]) [place]-3 Acid Ethyl Esters (FDC) 1000 MG Oral Capsule Fish Oi l 12/08/2019 12:00:00 AM EDT ORAL completed [facility] ([facility]) duloxetine 30 MG Delayed Release Oral Capsule Duloxetine HCL 12/08/2019 12:00:00 AM EDT ORAL completed [facility] ([facility]) Hydrochlorothiazide 12.5 MG Oral Capsule Hydrochlorothiazide 12/08/2019 12:00:00 AM EDT ORAL completed [facility] ([facility]) Aspirin 81 MG Delayed Release Oral Tablet Aspirin 81 2019 12:00:00 AM EDT ORAL completed [facility] ([facility]) glimepiride 2 MG Oral Tablet Glimepiride 12/01/2019 12:00:00 AM EDT ORAL completed [facility] ([facility]) Methadone Hydrochloride 10 MG Oral Tablet Methadone HC l 10 MG Oral Tablet Methadone HCl 10 MG Oral Tablet 12/01/2019 12:00:00 AM EDT 1 aborted methadone hydrochloride 10 MG Oral Tablet [place] ([facility]) Hydrochlorothiazide 12.5 MG Oral Tablet hydroCHLOROthi azide 12.5 MG Oral Tablet hydroCHLOROthiazide 12.5 MG Oral Tablet 12/01/2019 12:00:00 AM EDT aborted hydrochlorothiazide 12.5 MG Oral Tablet [place] ([facility]) 12.5 mg 12/01/2019 12:00:00 AM EDT tablet 90 TAKE ONE TABLET BY MOUTH EVERY DAY TAKE ONE TABLET BY MOUTH EVERY DAY SOLD: 12/10/2019 [facility] Aspirin 81 MG Delayed Release Oral Table t Aspirin 81 MG Oral Tablet Delayed Release Aspirin 81 MG Oral Tablet Delayed Release 10/08/2019 12:00:00 AM EDT aborted aspirin 81 MG Delayed Re lease Oral Tablet [place] ([facility]) glimepiride 2 MG Oral Tablet GLIMEPIRIDE 10/08/2019 12:00:00 AM EDT ta blet 30 TAKE ONE TABLET BY MOUTH EVERY DAY WITH FOOD TAKE ONE TABLET BY MOUTH EVERY DAY WITH FOOD SOLD: 10/08/2019 [facility] glimepiride 2 MG Oral Tablet Glimepiride 2 MG Oral Tab let Glimepiride 2 MG Oral Tablet 10/08/2019 12:00:00 AM EDT aborted glimepiride 2 MG Oral Tablet [place] ([facility]) 30 mg 09/22/2019 12:00:00 AM EST capsule,delayed release (DR/EC) 60 TAKE 1 CAPSULE BY MOUTH EVERY DAY FOR 2 WEEKS, THEN 2 EVERY DAY TAKE 1 CAPSULE BY MOUTH EVERY DAY FOR 2 WEEKS, THEN 2 EVERY DAY SOLD: 09/22/2019 [facility] duloxetine 30 MG Delayed Release Oral Ca psule DULoxetine HCl 30 MG Oral Capsule Delayed Release Particles DULoxetine HCl 30 MG Oral Capsule Delaye d Release Particles 09/21/2019 12:00:00 AM EST aborted duloxetine 30 MG Delayed Release Oral Capsule [place] ([facility]) Aspirin 81 MG Delayed Release Oral Tablet Aspirin Ente kylie Coated Adult Low Strength 09/21/2019 12:00:00 AM EST ORAL active [facility] ([facility]) duloxetine 30 MG Delayed Release Oral Capsule Duloxetine HCL 09/21/2019 12:00:00 AM EST ORAL active [facility] ([facility]) Amitriptyline Hydrochloride 25 MG Oral Tablet AMITRIPTYLINE HCL 09/16/2019 12:00:00 AM EST tablet 120 TAKE FOUR TABLETS BY MOUT H AT BEDTIME TAKE FOUR TABLETS BY MOUTH AT BEDTIME SOLD: 09/22/2019 [facility] Clonidine Hydrochloride 0.1 MG Oral Tablet cloNIDine H Cl 0.1 MG Oral Tablet cloNIDine HCl 0.1 MG Oral Tablet 09/08/2019 12:00:00 AM EST 1 aborted clonidine hydrochloride 0.1 MG Oral Tablet [facility] ([facility]) Ondansetron 4 MG Disintegrating Oral Tab let Ondansetron 4 MG Oral Tablet Disintegrating Ondansetron 4 MG Oral Tablet Disintegrating 09/08/2019 12:00:00 AM EST aborted ondansetron 4 MG Disintegrating Oral Tablet [place] ([facility]) Amitriptyline Hydrochloride 25 MG Oral Tablet AMITRIPTYLINE HCL 09/02/2019 12:00:00 AM EST tablet 60 TAKE 1 TO 2 TABLETS BY MO UTH AT BEDTIME TAKE 1 TO 2 TABLETS BY MOUTH AT BEDTIME SOLD: 09/02/2019 [facility] 5 mg 08/31/2019 12:00:00 AM EST tablet 12 TAKE ONE TABLET BY MOUTH THREE TIMES A DAY NEEDED FOR 4 DAYS THEN DISCONTINUE, DO NOT DRIVE WHILE USING THIS MEDICATION MAXIMUM DAILY DOSE = 3 TAKE ONE TABLET BY MOUTH THREE TIMES A D AY NEEDED FOR 4 DAYS THEN DISCONTINUE, DO NOT DRIVE WHILE USING THIS MEDICATION MAXIMUM DAILY DOSE = 3 SOLD: 08/31/2019 [facility] 5 mg 08/04/2019 12:00:00 AM EST tablet 90 TAKE ONE TABLET BY MOUTH THREE TIMES A DAY MAXIMUM DAILY DOSE = 3 TAKE ONE TABLET BY MOUTH THREE TIMES A D AY MAXIMUM DAILY DOSE = 3 SOLD: 08/04/2019 [facility] 15 mg 07/20/2019 12:00:00 AM EST tablet extended release 60 TAKE ONE TABLET BY MOUTH EVERY 12 HOURS MAXIMUM DAILY DOSE = 2 TAKE ONE TABLET BY MOUTH EVERY 12 HOURS MAXIMUM DAILY DOSE = 2 SOLD: 07/27/2019 [facility] Morphine Sulfate ER 15 MG Oral Tablet ER 12 Hour Abuse -Deterrent Morphine Sulfate ER 15 MG Oral Tablet ER 12 Hour Abuse-Deterrent 07/15/2019 12:00:00 AM EST aborted Abuse-De terrent 12 HR morphine sulfate 15 MG Extended Release Oral Tablet [facility] ([facility]) 24 HR trandolapril 4 MG / Verapamil hydr ochloride 240 MG Extended Release Oral Tablet [Tarka] Tarka 4-240MG Oral Tablet Extended Release Tarka 4-240MG Oral Tablet Extended Release 01/15/2019 12:00:00 AM EDT 1 aborted 24 HR trandolapril 4 MG / verapamil hydrochloride 240 MG Extended Release Oral Tablet [Tarka] [facility] ([facility]) Hydrochlorothiazide 12.5 MG Oral Tablet hydroCHLOROthi azide 12.5MG Oral Tablet hydroCHLOROthiazide 12.5MG Oral Tablet 01/15/2019 12:00:00 AM EDT aborted hydrochlorothiazide 12.5 MG Oral Tablet [facility] ([facility]) Mupirocin 0.02 MG/MG Topical Ointment Mupirocin 2% Ext ernal Ointment Mupirocin 2% External Ointment 01/14/2019 12:00:00 AM EDT 1 aborted mupirocin 0.02 MG/MG Topical Ointment [facility] ([facility]) Methadone Hydrochloride 10 MG Oral Tablet Methadone HC l 10MG Oral Tablet Methadone HCl 10MG Oral Tablet 10/31/2018 12:00:00 AM EDT aborted methadone hydrochloride 10 MG Oral Tablet [facility] ([facility] Capsaicin 0.25 MG/ML Topical Cream Capsaicin 0.025% Ex ternal Cream Capsaicin 0.025% External Cream 10/01/2018 12:00:00 AM EST 1 aborted capsaicin 0.25 MG/ML Topical Cream [facility] ([facility]) 24 HR Metformin hydrochloride 500 MG Ext ended Release Oral Tablet metFORMIN HCl ER 500MG Oral Tablet Extended Release 24 Hour metFORMIN HCl ER 500MG Oral Tablet Extended Release 24 Hour 10/01/2018 12:00:00 AM EST 2 aborted 24 HR metformin hydrochloride 500 MG Extended Release Oral Tablet [facility] ([facility]) Fish Oil 1000 MG OR CAPS Fish Oil 1000 MG OR CAPS 02/09/2011 12:00: 00 AM EDT aborted Fish Oil [facility] ([facility]) Diazepam 5 MG Oral Tablet diazepam 5 mg tablet diazepam 5 mg tablet completed diazepam 5 MG Oral Tablet [facility] ([facility]) 12 HR Oxycodone Hydrochloride 10 MG Exte nded Release Oral Tablet [Oxycontin] OxyContin 10 mg tablet,crush resistant,extended release OxyContin 10 mg tablet,crush resistant,extended release completed Abuse- Deterrent 12 HR oxycodone hydrochloride 10 MG Extended Release Oral Tablet [Oxycontin] [facility] ([facility]) Diazepam 5 MG Oral Tablet diazepam 5 mg tablet diazepam 5 mg tablet completed diazepam 5 MG Oral Tablet [facility] ([facility]) Methadone Hydrochloride 10 MG Oral Table t methadone 10 mg tablet TAKE ONE TABLET BY MOUTH TWICE A DAY MAXIMUM DAILY DOSE 2 TABLETS methadone 10 mg tablet TAKE ONE TABLET BY MOUTH TWICE A DAY MAXIMUM DAILY DOSE 2 TABLETS completed methadone hydrochloride 10 MG Or al Tablet [facility] ([facility]) 168 HR Buprenorphine 0.005 MG/HR Transde rmal Patch buprenorphine 5 mcg/hour weekly transdermal patch buprenorphine 5 mcg/hour weekly transdermal patch completed 168 HR Buprenorphine 0 .005 MG/HR Transdermal System [facility] ([facility]) Methadone Hydrochloride 5 MG Oral Tablet methadone 5 mg tablet TAKE ONE TABLET BY MOUTH THREE TIMES A DAY MAXIMUM DAILY DOSE 3 methadone 5 mg tablet TAKE ONE TABLET BY MOUTH THREE TIMES A DAY MAXIMUM DAILY DOSE 3 completed methadone hydrochloride 5 MG Oral Tablet [facility] ([facility]) doxycycline hyclate 100 MG Oral Capsule doxycycline hyclate 100 mg capsule TAKE ONE CAPSULE BY MOUTH TWICE A DAY doxycycline hyclate 100 mg capsule TAKE ONE CAPSULE BY MOUTH TWICE A DAY completed doxycycline hyclate 100 MG Oral Capsule [facility] ([facility]) Diazepam 5 MG Oral Tablet diazepam 5 mg tablet diazepam 5 mg tablet completed diazepam 5 MG Oral Tablet [facility] ([facility]) Diazepam 5 MG Oral Tablet diazepam 5 mg tablet diazepam 5 mg tablet completed Diazepam 5 MG Oral Tablet [facility] ([facility]) duloxetine 30 MG Delayed Release Oral Ca psule duloxetine 30 mg capsule,delayed release TAKE 1 CAPSULE BY MOUTH EVERY DAY FOR 2 WEEKS THEN 2 EVERY DAY duloxetine 30 mg capsule,delayed release TAKE 1 CAPSULE BY MOUTH EVERY DAY FOR 2 WEEKS THEN 2 EVERY DAY completed duloxetine 30 MG Delayed Release Oral Capsule [facility] ([facility]) Amitriptyline Hydrochloride 25 MG Oral T ablet amitriptyline 25 mg tablet 1-2 tabs at bedtime amitriptyline 25 mg tablet 1-2 tabs at bedtime completed Amitriptyline Hydrochloride 25 M G Oral Tablet [facility] ([facility]) 168 HR Buprenorphine 0.005 MG/HR Transde rmal Patch buprenorphine 5 mcg/hour weekly transdermal patch buprenorphine 5 mcg/hour weekly transdermal patch completed 168 HR buprenorphine 0 .005 MG/HR Transdermal System [facility] ([facility]) Aspirin 81 MG Chewable Tablet aspirin 81 mg chewable tablet Chew 1 tablet every day by oral route. aspirin 81 mg chewable tablet Chew 1 tab let every day by oral route. 1 completed aspirin 81 MG Chewable Tablet [facility] ([facility]) Diazepam 5 MG Oral Tablet diazepam 5 mg tablet diazepam 5 mg tablet completed Diazepam 5 MG Oral Tablet [facility] ([facility]) Diazepam 5 MG Oral Tablet diazepam 5 mg tablet diazepam 5 mg tablet completed diazepam 5 MG Oral Tablet [facility] ([facility]) Methadone Hydrochloride 10 MG Oral Table t methadone 10 mg tablet TAKE ONE TABLET BY MOUTH TWICE A DAY MAXIMUM DAILY DOSE 2 TABLETS methadone 10 mg tablet TAKE ONE TABLET BY MOUTH TWICE A DAY MAXIMUM DAILY DOSE 2 TABLETS completed methadone hydrochloride 10 MG Or al Tablet [facility] ([facility]) Diazepam 5 MG Oral Tablet diazepam 5 mg tablet diazepam 5 mg tablet completed diazepam 5 MG Oral Tablet [facility] ([facility]) doxycycline hyclate 100 MG Oral Capsule doxycycline hyclate 100 mg capsule TAKE ONE CAPSULE BY MOUTH TWICE A DAY doxycycline hyclate 100 mg capsule TAKE ONE CAPSULE BY MOUTH TWICE A DAY completed doxycycline hyclate 100 MG Oral Capsule [facility] ([facility]) Amitriptyline Hydrochloride 25 MG Oral T ablet amitriptyline 25 mg tablet 1-2 tabs at bedtime amitriptyline 25 mg tablet 1-2 tabs at bedtime completed Amitriptyline Hydrochloride 25 M G Oral Tablet [facility] ([facility]) Amitriptyline Hydrochloride 25 MG Oral T ablet amitriptyline 25 mg tablet 1-2 tabs at bedtime amitriptyline 25 mg tablet 1-2 tabs at bedtime completed Amitriptyline Hydrochloride 25 M G Oral Tablet [facility] ([facility]) Methadone Hydrochloride 10 MG Oral Table t methadone 10 mg tablet TAKE ONE TABLET BY MOUTH TWICE A DAY MAXIMUM DAILY DOSE 2 TABLETS methadone 10 mg tablet TAKE ONE TABLET BY MOUTH TWICE A DAY MAXIMUM DAILY DOSE 2 TABLETS completed methadone hydrochloride 10 MG Or al Tablet [facility] ([facility]) Morphine Sulfate 15 MG Extended Release Oral Tablet morphine ER 15 mg tablet,extended release TAKE ONE TABLET BY MOUTH EVERY 12 HOURS MAXIMUM DAILY DOSE 2 morphine ER 15 mg tablet,extended releas e TAKE ONE TABLET BY MOUTH EVERY 12 HOURS MAXIMUM DAILY DOSE 2 completed morphine sulfate 15 MG Extended Release Oral Tablet [facility] ([facility]) Methadone Hydrochloride 5 MG Oral Tablet methadone 5 mg tablet TAKE ONE TABLET BY MOUTH THREE TIMES A DAY MAXIMUM DAILY DOSE 3 methadone 5 mg tablet TAKE ONE TABLET BY MOUTH THREE TIMES A DAY MAXIMUM DAILY DOSE 3 completed methadone hydrochloride 5 MG Oral Tablet [facility] ([facility]) Methadone Hydrochloride 5 MG Oral Tablet methadone 5 mg tablet TAKE ONE TABLET BY MOUTH THREE TIMES A DAY MAXIMUM DAILY DOSE 3 methadone 5 mg tablet TAKE ONE TABLET BY MOUTH THREE TIMES A DAY MAXIMUM DAILY DOSE 3 completed methadone hydrochloride 5 MG Oral Tablet [facility] ([facility]) Diazepam 5 MG Oral Tablet diazepam 5 mg tablet diazepam 5 mg tablet completed Diazepam 5 MG Oral Tablet [facility] ([facility]) duloxetine 30 MG Delayed Release Oral Ca psule duloxetine 30 mg capsule,delayed release TAKE 1 CAPSULE BY MOUTH EVERY DAY FOR 2 WEEKS THEN 2 EVERY DAY duloxetine 30 mg capsule,delayed release TAKE 1 CAPSULE BY MOUTH EVERY DAY FOR 2 WEEKS THEN 2 EVERY DAY completed duloxetine 30 MG Delayed Release Oral Capsule [facility] ([facility]) Spironolactone 100 MG Oral Tablet spironolactone 100 m g tablet spironolactone 100 mg tablet completed spironol actone 100 MG Oral Tablet [facility] ([facility]) Methadone Hydrochloride 10 MG Oral Table t methadone 10 mg tablet TAKE ONE TABLET BY MOUTH TWICE A DAY MAXIMUM DAILY DOSE 2 TABLETS methadone 10 mg tablet TAKE ONE TABLET BY MOUTH TWICE A DAY MAXIMUM DAILY DOSE 2 TABLETS completed methadone hydrochloride 10 MG Or al Tablet [facility] ([facility]) 12 HR Oxycodone Hydrochloride 10 MG Exte nded Release Oral Tablet [Oxycontin] OxyContin 10 mg tablet,crush resistant,extended release OxyContin 10 mg tablet,crush resistant,extended release completed Abuse- Deterrent 12 HR oxycodone hydrochloride 10 MG Extended Release Oral Tablet [Oxycontin] [facility] ([facility]) glimepiride 2 MG Oral Tablet glimepiride 2 mg tablet o ne tablet daily with food glimepiride 2 mg tablet one tablet daily with food completed glimepiride 2 MG Oral Tablet [facility] ([facility]) Aspirin 81 MG Chewable Tablet aspirin 81 mg chewable tablet Chew 1 tablet every day by oral route. aspirin 81 mg chewable tablet Chew 1 tab let every day by oral route. 1 completed aspirin 81 MG Chewable Tablet [facility] ([facility]) Spironolactone 100 MG Oral Tablet spironolactone 100 m g tablet spironolactone 100 mg tablet completed spironol actone 100 MG Oral Tablet [facility] ([facility]) 24 HR trandolapril 4 MG / Verapamil hydr ochloride 240 MG Extended Release Oral Tablet trandolapril 4 mg-verapamil ER 240 mg tablet,immed-exten release 24 hr trandolapril 4 mg-verapamil ER 240 mg tablet,immed-exten release 24 hr completed 24 HR trandolap ril 4 MG / verapamil hydrochloride 240 MG Extended Release Oral Tablet [facility] ([facility]) Methadone Hydrochloride 10 MG Oral Table t methadone 10 mg tablet TAKE ONE TABLET BY MOUTH TWICE A DAY MAXIMUM DAILY DOSE 2 TABLETS methadone 10 mg tablet TAKE ONE TABLET BY MOUTH TWICE A DAY MAXIMUM DAILY DOSE 2 TABLETS completed methadone hydrochloride 10 MG Or al Tablet [facility] ([facility]) Diazepam 5 MG Oral Tablet diazepam 5 mg tablet diazepam 5 mg tablet completed diazepam 5 MG Oral Tablet [facility] ([facility]) Diazepam 5 MG Oral Tablet diazepam 5 mg tablet diazepam 5 mg tablet completed diazepam 5 MG Oral Tablet [facility] ([facility]) Diazepam 5 MG Oral Tablet diazepam 5 mg tablet diazepam 5 mg tablet completed diazepam 5 MG Oral Tablet [facility] ([facility]) glimepiride 2 MG Oral Tablet glimepiride 2 mg tablet o ne tablet daily with food glimepiride 2 mg tablet one tablet daily with food completed glimepiride 2 MG Oral Tablet [facility] ([facility]) Methadone Hydrochloride 5 MG Oral Tablet methadone 5 mg tablet TAKE ONE TABLET BY MOUTH THREE TIMES A DAY MAXIMUM DAILY DOSE 3 methadone 5 mg tablet TAKE ONE TABLET BY MOUTH THREE TIMES A DAY MAXIMUM DAILY DOSE 3 completed methadone hydrochloride 5 MG Oral Tablet [facility] ([facility]) Methadone Hydrochloride 5 MG Oral Tablet methadone 5 mg tablet TAKE ONE TABLET BY MOUTH THREE TIMES A DAY MAXIMUM DAILY DOSE 3 methadone 5 mg tablet TAKE ONE TABLET BY MOUTH THREE TIMES A DAY MAXIMUM DAILY DOSE 3 completed methadone hydrochloride 5 MG Oral Tablet [facility] ([facility]) Amitriptyline Hydrochloride 25 MG Oral T ablet amitriptyline 25 mg tablet 1-2 tabs at bedtime amitriptyline 25 mg tablet 1-2 tabs at bedtime completed amitriptyline hydrochloride 25 M G Oral Tablet [facility] ([facility]) Morphine Sulfate 15 MG Extended Release Oral Tablet morphine ER 15 mg tablet,extended release TAKE ONE TABLET BY MOUTH EVERY 12 HOURS MAXIMUM DAILY DOSE 2 morphine ER 15 mg tablet,extended releas e TAKE ONE TABLET BY MOUTH EVERY 12 HOURS MAXIMUM DAILY DOSE 2 completed morphine sulfate 15 MG Extended Release Oral Tablet [facility] ([facility]) Insurance Providers Payer name Policy type / Coverage type Policy ID Covered green party ID Covered green party's relationship to romero Policy Romero Plan Information [facility] [id number] SP [id number] [facility] [id number] SP [id number] [facility] O [id number] S [id number] [facility] [id number] SP [id number] [facility] [id number] SP [id number] MEDICARE [id number] SP [id number] [facility] GOLD [id number] SP [id number] MEDICARE [id number] SP [id number] A [facility] Health Plan [facility] Other 0 Self 0 [facility] O [id number] S [id number] SELF PAY [facility] GOLD MEDICARE ADV [id number] SP [id number] MEDICARE AIDA [id number] S [id number] [facility] [id number] S [id number] [facility] [place] Other 0 Self 0 [facility] [place] Other 0 Self 0 SELF PAY MVP GOLD MEDICARE ADV [id number] SP [id number] [facility] [place] Other 0 Self 0 [facility] Healthcare F [id number] SELF [id number] [facility] [place] Other 0 Self 0 DME Jurisdiction A NHIC C [id number] SELF [id number] Medicare C [id number] SELF [id number] A [facility] [place] Other 0 Self 0 [facility] [id number] S [id number] [facility] [place] Other 0 Self 0 SELF PAY MVP GOLD MEDICARE ADV [id number] SP [id number] SELF PAY MEDICARE PART A [id number] SP [id number] [facility] [place] Other 0 Self 0 [facility] [place] Other 0 Self 0 [facility] [place] Other 0 Self 0 MEDICARE PART A [id number] SP [id number] [facility] [place] Other 0 Self 0 [facility] [place] Other 0 Self 0 MVP Healthcare F [id number] SELF [id number] [facility] [place] Other 0 Self 0 [facility] [place] Other 0 Self 0 [facility] [place] Other 0 Self 0 ANSI-Medicare Part B [id number] ANSI-Health Maintenance Organization (HM O) [id number] [facility] [place] Other 0 Self 0 Medicare [place] Other 0 Self 0 Medicare [place] Individual Policy 0 Tana f 0 Medicare [place] Individual Policy 0 Tana f 0 [place] Individual Policy 0 Tana f 0 Medicare [place] Individual Policy 0 Tana f 0 MEDICARE [id number] SP [id number] A Medicare [facility] Medicare Primary Self MEDICARE C [id number] S [id number] A [id number] A Problems, Conditions, and Diagnoses Code Display Name Description Problem Type Effective Dates Data Source(s) 63503190 Essential hypertension Essential hypertension Problem 06/14/2020 12:00:00 AM EST [facility] ([facility] ) 260169854 Cirrhosis - non-alcoholic Cirrhosis - non-alcoholic Pr oblem 05/31/2020 12:00:00 AM EST [facility] ([facility]) 571.5 Cirrhosis Cirrhosis Problem 05/05/2020 12:00:00 AM ED T [facility] ([facility]) 060556 Breast Cancer Breast Cancer Problem 10/08/2019 12:00:00 AM EDT [facility] ([facility]) 749365 Breast Cancer Breast Cancer Problem 10/08/2019 12:00:00 AM EDT [facility] ([facility]) 617070 Breast Cancer Breast Cancer Problem 10/08/2019 12:00:00 AM EDT [facility] ([facility]) 722424 Breast Cancer Breast Cancer Problem 10/08/2019 12:00:00 AM EDT [facility] ([facility]) R60.9 Edema, unspecified R60.9 - Edema, unspecified Diagnosi s 03/14/2020 10:54:00 AM EDT [facility] I10 Essential (primary) hypertension I10 - Essential (primary) hypertension Diagnosis 03/14/2020 10:54:00 AM EDT [facility] E11.9 Type 2 diabetes mellitus without complic ations E11.9 - Type 2 diabetes mellitus without complications Diagnosis 03/14/2020 10:54:00 AM EDT [facility] Surgeries/Procedures Procedure Description Date Indications Data Source(s) UNLISTED PX ABDOMEN MUSCULOSKELETAL SYSTEM Abdomen Surgery P rocedure 06/08/2020 12:00:00 AM EST [facility] ([facility] Past medical history -Please see Problem List for Act adria Chronic Problems Past medical history -Please see Problem List for Active Chronic Problems 05/05/2020 12:00:00 AM EDT [facility] ([facility] History of orthopedic surgery L foot tarsal tunnel r elease 05/1996 History of orthopedic surgery L foot tarsal tunnel release 05/199605/05/2020 12:00:00 AM EDT [facility] ([facility]) History of mastectomy of left breast - 1991 History o f mastectomy of left breast - 199105/05/2020 12:00:00 AM EDT [facility] ([facility]) History of cholecystectomy - 2003 History of cholecystectom y - 200305/05/2020 12:00:00 AM EDT [facility] ([facility]) MRI, lumbar spine, w/o contrast 12/10/2019 12:00:00 AM EDT ETHAN ([facility]) ECG ROUTINE ECG W/LEAST 12 LDS W/I&R 12/09/2019 12:00: 00 AM EDT [facility] ([facility]) Electrocardiogram Interpretation & Report Only 020 12:00:00 AM EDT [facility] ([facility]) Ekg With Interpretation and Report Ekg With Interpretation a nd Report 12/01/2019 12:00:00 AM EDT [facility] ([facility]) Hemoglobin; Glycated A1c Hemoglobin; Glycated A1c 12/01/2019 12:00: 00 AM EDT [facility] ([facility]) Past medical history -Please see Problem List for Act adria Chronic Problems Past medical history -Please see Problem List for Active Chronic Problems 12/01/2019 12:00:00 AM EDT [facility] ([facility]) History of orthopedic surgery L foot tarsal tunnel r elease 05/1996 History of orthopedic surgery L foot tarsal tunnel release 05/199612/01/2019 12:00:00 AM EDT [facility] ([facility]) History of mastectomy of left breast - 1991 History o f mastectomy of left breast - 199112/01/2019 12:00:00 AM EDT [facility] ([facility]) History of cholecystectomy - 2003 History of cholecystectom y - 200312/01/2019 12:00:00 AM EDT [facility] ([facility]) Ekg With Interpretation and Report Ekg With Interpretation a nd Report 12/01/2019 12:00:00 AM EDT [facility] ([facility]) Hemoglobin; Glycated A1c (QW) Hemoglobin; Glycated A1c (QW) 10/08/2019 12:00:00 AM EDT [facility] ([facility]) Past medical history -Please see Problem List for Act adria Chronic Problems Past medical history -Please see Problem List for Active Chronic Problems 10/08/2019 12:00:00 AM EDT [facility] ([facility]) No history of coronary artery disease No history of coronary artery disease 10/08/2019 12:00:00 AM EDT [facility] ([facility]) History of orthopedic surgery L foot tarsal tunnel re lease 05/1996 History of orthopedic surgery L foot tarsal tunnel release 05/199610/08/2019 12:00:00 AM EDT [facility] History of mastectomy of left breast - 1991 History o f mastectomy of left breast - 199110/08/2019 12:00:00 AM EDT [facility] of cholecystectomy - 2003 History of cholecystectom y - 200310/08/2019 12:00:00 AM EDT [facility] ([facility]) Hemoglobin; Glycated A1c Hemoglobin; Glycated A1c 10/08/2019 12:00: 00 AM EDT [place] ([facility]) Results ID Date Data Source [id number] 09/05/2020 12:42:00 PM [facility] Name Value Range Interpretation Code Description Data Debra rce(s) Supporting Document(s) SARS coronavirus 2 RNA [Presence] in Res piratory specimen by CHERIE with probe detection NEGATIVE [facility] This lab was ordered by [facility] a nd reported by [facility]. ID Date Data Source [id number] 07/12/2020 12:00:00 AM EST [facility] Laverne Reynolds Patient Name: MIKEY [id number] Date of : [address] Date of Exam: 07/12/2020AILYN Molina [id number]#: Fax: [id number] EXAM: MRI LUMBAR SPINE WITHOUT CONTRASTPROCEDURE INFORMATION:Exam: MR Lumbar Spine Without Contrast.Exam date and time: 07/12/2020 10:11 AM Age: 70 years oldClinical indication: Low back painTECHNIQUE: Imaging protocol: Multiplanar magnetic resonance images of thelumbar spine without intravenous contrast.COMPARISON: MRI LUMBAR SPINE WITHOUT CONTRAST 10/22/2014 3:40 PMFINDINGS:Vertebrae: No acute compression fracture is seen. Bone marrow signal iswithin normal limits.Spinal cord: The conus medullaris terminates at the inferior L1 level.There is no evidence of arachnoiditis or cauda equina compression.L1-L2: There is minimal diffuse circumferential disc bulging and facetarthropathy. There is no significant spinal canal or neural foraminalstenosis.L2-L3: There is mild diffuse circumferential disc bulging and facetarthropathy. There is no spinal canal stenosis. Minimal bilateral neuralforaminal narrowing is present.L3-L4: There is moderate diffuse circumferential disc bulging with asuperimposed right foraminal and extraforaminal disc protrusion. Moderatefacet arthropathy and thickening of the ligamentum flavum is also present.This is causing mild spinal canal stenosis, moderate narrowing of the rightsubarticular recess, mild narrowing of the left subarticular recess,moderate right neural foraminal narrowing, and mild left neural foraminalnarrowing. There is impingement of the exiting right L3 nerve. There hasbeen interval improvement in the right subarticular component of thepreviously noted disc protrusion.L4-L5: There is marked diffuse circumferential disc bulging, bilateralextraforaminal osteophytic ridging, and moderate facet arthropathy. This iscausing mild spinal canal stenosis, moderate narrowing of the subarticularrecesses, and moderate bilateral neural foraminal narrowing.L5-S1: There is marked diffuse circumferential disc bulging, bilateralforaminal and extraforaminal osteophytic ridging, and severe facetarthropathy. This is causing minimal spinal canal stenosis, severenarrowing of the subarticular recesses, moderate right neural foraminalnarrowing, and moderate/severe left neural foraminal narrowing.Spleen: Mild splenomegaly is likely present. This is causing mildcompression of the left kidney.Soft tissues: Unremarkable.IMPRESSION:Chronic degenerative changes of the lumbar spine as discussed above. Thereis been mild interval improvement of a right subarticular disc protrusionat L3-L4 since the prior exam.Thank you for allowing us to participate in the care of your patient.Dictated and Authenticated by: Sánchez Munguia MD 07/12/2020 1:02 PMEastern Time ([place] & [place])VradV/Vik you for referring MIKEY TAPIA to our office. Electronically Signed - [facility] 07/12/20 16:49 Name Value Range Interpretation Code Description Data Debra rce(s) Supporting Document(s) ID Date Data Source [id number] 06/03/2020 11:28:00 AM EST [facility] ([facility] [employer]) Name Value Range Interpretation Code Description Data Debra rce(s) Supporting Document(s) Ferritin [Mass/volume] in Serum or Plasma 268 ng/mL 26-388 [facility] ([facility]) Wavwb-4-Eidbmduzsqj [Mass/volume] in Serum or Plasma 5.6 ng/mL [facility] ([facility]) THE AFP ASSAY IS PERFORMED ON THE [employer] BY CHEMILUMINESCENCE AND SHOULD NOT BE COMPARED INTERCHANGEABLY WITH OTHER METHODS. IT SHOULD NOT BE USED ALONE A SCREENING TEST OR DIAGNOSIS FOR THE PRESENCE OR ABSENCE OF MALIGNANT DISEASE. THESE RESULTS ARE NOT INTERPRETABLE IN FEMALES. PREDICTIONS OF DISEASE RECURRENCE SHOULD NOT BE BASED SOLELY ON VALUES OBTAINED FROM SERIAL PATIENT SERUM VALUES. Iron [Mass/volume] in Serum or Plasma 66 ug/dL 65-175 [facility] ([facility]) ID Date Data Source [id number] 06/03/2020 11:28:00 AM EST [facility] ([facility]) Name Value Range Interpretation Code Description Data Debra rce(s) Supporting Document(s) Partial Thromboplastin Time 30.4 s 24.2-38.5 ME [facility] ([facility]) Prothrombin Time 17.4 s 12.5-14.3 [facility]) Inr 1.39 [facility] THERAPUTIC HUMAN INR VALUES INDICATIONS NORMAL RANGES PROPHYLAXIS/TREATMENT OF: VENOUS THROMBOSIS 2.0-3.0 PULMONARY EMBOLISM 2.0-3.0 PREVENTION OF SYSTEMIC EMBOLISM FROM: TISSUE HEART VALVES 2.0-3.0 ACUTE MYOCARDIAL INFARCTION 2.0-3.0 VALVULAR HEART DISEASE 2.0-3.0 ATRIAL FIBRILLATION 2.0-3.0 MECHANICAL VALVES(HIGH RISK) 2.5-3.5 RECURRENT MYOCARDIAL INFARCTION 2.5-3.5 ID Date Data Source [id number] 06/03/2020 11:28:00 AM EST [facility] ([facility]) Name Value Range Interpretation Code Description Data Debra rce(s) Supporting Document(s) Antinuclear Antibodies Direct Laboratory test result [facility] ([facility]) Performed at: - [facility] [address] [id number] Technical Data Analyst: Lu Springer MD, Phone: [phone] ID Date Data Source [id number] 06/03/2020 11:28:00 AM EST [facility] ([facility]) Name Value Range Interpretation Code Description Data Debra rce(s) Supporting Document(s) C reactive protein [Mass/volume] in Serum or Plasma 1.10 mg/dL 0.00-0 .30 [facility] ([facility]) ID Date Data Source [id number] 06/03/2020 11:28:00 AM EST [facility] ([facility]) Name Value Range Interpretation Code Description Data Debra rce(s) Supporting Document(s) Glucose, Fasting 104 mg/dL 70-100 [facility] ([facility]) Creatinine For GFR 1.15 mg/dL 0.70-1.30 [facility]) Blood Urea Nitrogen 22 mg/dL 7-18 [facility] ([facility]) Glomerular Filtration Rate Laboratory test result [facility] ([facility]) <content>Units are mL/min/1.73 m2</content>
<content></content>
<content>Chronic Kidney Disease Staging per NKF:</content>
<content></content>
<content>Stage I & II GFR >=60 Normal to Mildly Decreased</content>
<content>Stage III GFR 30- 59 Moderately Decreased</content>
<content>Stage IV GFR 15-29 Severely Decreased</content>
<content>Stage V GFR <15 Very Little GFR Left</content>
<content>ESRD GFR <15 on CORRECTION OFFICER HEAD</content>
<content></content> Chloride Level 103 meq/L 98-107 [facility]) Sodium Level 137 meq/L 136-145 [facility] ([facility]) Potassium Serum 4.4 meq/L 3.5-5.1 [facility]) Carbon Dioxide Level 30 meq/L 21-32 [facility]) Calcium Level 8.7 mg/dL 8.8-10.2 [facility] ([facility]) Anion Gap 4 meq/L 8-16 [facility] Ast/Sgot 23 U/L 7-37 [facility]) Bilirubin,Total 1.2 mg/dL 0.2-1.0 [facility] ([facility]) Alt/SGPT 15 U/L 12-78 [facility] Alkaline Phosphatase 95 U/L 45-117 [facility] ([facility]) Albumin 3.0 GM/DL 3.2-5.2 [facility] ([facility] Albumin/Globulin Ratio 0.7 [facility] ([facility]) Total Protein 7.6 GM/DL 6.4-8.2 [facility] ([facility]) ID Date Data Source [id number] 05/06/2020 12:32:00 PM EDT [facility] ([facility]) Name Value Range Interpretation Code Description Data Debra rce(s) Supporting Document(s) Amphetamines: negative Amphetamines: [facility] ([facility]) THC negative Thc [facility] ([facility]) Cocaine: negative Cocaine: [facility] ([facility]) Opiates: negative Opiates: [facility] ([facility]) OXY positive Oxy [facility] ([facility]) MTD positive Mtd [facility] ([facility]) Barbiturates: negative Barbiturates: [facility] ([facility]) PCP negative Pcp [facility] ([facility]) Benzodiazepines: negative Benzodiazepines: AT [place] ([facility]) Methamphetamine negative Methamphetamine ATHE NA ([facility]) ID Date Data Source [id number] 05/06/2020 12:32:00 PM EDT [facility] ([facility]) Name Value Range Interpretation Code Description Data Debra rce(s) Supporting Document(s) Amphetamines: negative Amphetamines: [facility] ([facility]) Cocaine: negative Cocaine: [facility] ([facility] THC negative Thc [facility] ([facility] OXY positive Oxy [facility] ([facility]) Opiates: negative Opiates: [facility] ([facility]) MTD positive Mtd [facility] ([facility]) Benzodiazepines: negative Benzodiazepines: AT [place] ([facility]) Barbiturates: negative Barbiturates: [facility] ([facility]) PCP negative Pcp [facility] ([facility] Methamphetamine negative Methamphetamine ATHE NA ([facility]) ID Date Data Source [id number] 05/06/2020 12:32:00 PM EDT [facility] ([facility]) Name Value Range Interpretation Code Description Data Debra rce(s) Supporting Document(s) Amphetamines: negative Amphetamines: [facility] ([facility]) THC negative Thc [facility] ([facility]) Cocaine: negative Cocaine: [facility] ([facility]) Barbiturates: negative Barbiturates: [facility] ([facility]) MTD positive Mtd [facility] ([facility]) Opiates: negative Opiates: [facility] ([facility]) OXY positive Oxy [facility] ([facility]) Methamphetamine negative Methamphetamine ATHE NA ([facility]) Benzodiazepines: negative Benzodiazepines: AT [place] ([facility]) PCP negative Pcp [facility] ([facility]) ID Date Data Source [id number] 05/06/2020 12:00:00 AM EDT [facility] ([facility]) Name Value Range Interpretation Code Description Data Debra rce(s) Supporting Document(s) ID Date Data Source [id number] 05/06/2020 12:00:00 AM EDT [facility] ([facility]) Name Value Range Interpretation Code Description Data Debra rce(s) Supporting Document(s) duloxetine ur CMP <5 >=5 Abnormal (applies to no n-numeric results) Duloxetine Ur CMP [facility] ([facility]) tizanidine ur CMP 299 NG/mL >=5 normal Tizanidine Ur CMP [facility] ([facility]) oxycodone ur CMP >02792 >=100 normal Oxycodone Ur CMP AT [facility] ([facility]) ID Date Data Source [id number] 05/06/2020 12:00:00 AM EDT [place] ([facility]) Name Value Range Interpretation Code Description Data Debra rce(s) Supporting Document(s) sn reuptake inhibitors ur ql <5 >=5 Sn Reup take Inhibitors Ur Ql [facility] ([facility]) ID Date Data Source [id number] 05/06/2020 12:00:00 AM EDT [place] ([facility]) Name Value Range Interpretation Code Description Data Debra rce(s) Supporting Document(s) Ethyl glucuronide [Mass/volume] in Urine by Confirmatory method <50 0 >=500 Ethyl Glucuronide Ur [facility] ([facility]) alcohol metabolites ur ql cfm <200 >=200 Alcoho l Metabolites Ur Ql Cfm [place] ([facility]) Buprenorphine [Presence] in Urine by Confirmatory method <1 >=1 Buprenorphine Ur Ql Cfm [place] ([facility]) Ethyl sulfate [Mass/volume] in Urine by Confirmatory method <200 >=200 Ethyl Sulfate Ur [facility] ([facility]) Tapentadol [Presence] in Urine by Confirmatory method <100 >=100 Tapentadol Ur Ql [facility]fm [place] ([facility]) Amphetamines [Presence] in Urine by Confirmatory method <0 >=0 Amphetamines Ur Ql Cfm [facility] ([facility]) Benzodiazepines [Presence] in Urine by Confirmatory method <50 >=50 Benzodiaz Ur Ql [facility] ([facility]) Cocaine [Presence] in Urine by Confirmatory method <50 >=50 Bze Ur Ql [facility] ([facility]) gabapentinpregabalin ur ql cf <5 >=5 Gabap entinpregabalin Ur Ql [facility] ([facility]) Oxymorphone [Mass/volume] in Urine by Confirmatory method 6270 NG/m L >=100 Oxymorphone Ur [facility] ([facility]) Oxycodone [Mass/volume] in Urine by Confirmatory method >7500 >=100 Oxycodone Ur [facility] ([facility]) Opiates [Presence] in Urine by Confirmatory method >=100 >=1 00 Opiates Ur Ql [facility] ([facility]) Meperidine [Presence] in Urine by Confirmatory method <100 >=100 Meperidine Ur Ql [facility] ([facility]) 6-Monoacetylmorphine (6-ERIKA) [Presence] in Urine by Confirma tory method <10 >=10 6Mam Ur Ql [facility] ([facility]) Methadone [Presence] in Urine by Confirmatory method <200 > =200 Methadone Ur Ql [facility] ([facility]) Carisoprodol+Meprobamate [Presence] in Urine by Screen method <200 >=200 Carisoprodol+meprob Ur Ql [facility] ([facility]) Fentanyl+Norfentanyl [Presence] in Urine by Confirmatory method <5 >=5 Fentanyl+norfentanyl Ur Ql [facility] ([facility]) Tramadol [Presence] in Urine by Confirmatory method <100 >= 100 Tramadol Ur Ql [facility] ([facility]) Cotinine [Presence] in Urine by Confirmatory method <125 >= 125 Cotinine Ur Ql [facility] ([facility]) Creatinine [Mass/volume] in Urine 130.3 mg/dL 20 - 370 [facility] pH of Urine 4.5 - 9.0 normal pH Ur [facility] ([facility]) ID Date Data Source [id number] 05/06/2020 12:00:00 AM EDT [facility] ([facility]) Name Value Range Interpretation Code Description Data Debra rce(s) Supporting Document(s) dehydrotizanidine ur cfm-mcnc 60 NG/mL >=5 Dehydr otizanidine Ur Cfm-mcnc [facility] ([facility]) tizanidine ur ql cfm >=5 >=5 Tizanidine Ur Q l Cfm [facility] ([facility]) tizanidine ur cfm-mcnc 238 NG/mL >=25 Tizanidine Ur Cfm-mcnc [facility] ([facility]) ID Date Data Source [id number] 05/06/2020 12:00:00 AM EDT [facility] ([facility]) Name Value Range Interpretation Code Description Data Debra rce(s) Supporting Document(s) ID Date Data Source [id number] 05/06/2020 12:00:00 AM EDT [facility] ([facility]) Name Value Range Interpretation Code Description Data Debra rce(s) Supporting Document(s) ID Date Data Source [id number] 05/06/2020 12:00:00 AM EDT [facility] ([facility]) Name Value Range Interpretation Code Description Data Debra rce(s) Supporting Document(s) ID Date Data Source [id number] 05/06/2020 12:00:00 AM EDT [facility] ([facility]) Name Value Range Interpretation Code Description Data Debra rce(s) Supporting Document(s) tizanidine ur CMP 299 NG/mL >=5 normal Tizanidine Ur CMP [facility] ([facility]) duloxetine ur CMP <5 >=5 Abnormal (applies to no n-numeric results) Duloxetine Ur CMP [facility] ([facility]) oxycodone ur CMP >18274 >=100 normal Oxycodone Ur CMP [facility] ([facility]) ID Date Data Source [id number] 05/06/2020 12:00:00 AM EDT [place] ([facility]) Name Value Range Interpretation Code Description Data Debra rce(s) Supporting Document(s) sn reuptake inhibitors ur ql <5 >=5 Sn Reup take Inhibitors Ur Ql [facility] ([facility]) ID Date Data Source [id number] 05/06/2020 12:00:00 AM EDT [place] ([facility]) Name Value Range Interpretation Code Description Data Debra rce(s) Supporting Document(s) Buprenorphine [Presence] in Urine by Confirmatory method <1 >=1 Buprenorphine Ur Ql [facility] ([facility]) alcohol metabolites ur ql cfm <200 >=200 Alcoho l Metabolites Ur Ql [facility] ([facility]) Ethyl sulfate [Mass/volume] in Urine by Confirmatory method <200 >=200 Ethyl Sulfate Ur [facility] ([facility]) Ethyl glucuronide [Mass/volume] in Urine by Confirmatory method <50 0 >=500 Ethyl Glucuronide Ur [facility] ([facility]) Tapentadol [Presence] in Urine by Confirmatory method <100 >=100 Tapentadol Ur Ql [facility] ([facility]) Amphetamines [Presence] in Urine by Confirmatory method <0 >=0 Amphetamines Ur Ql [facility] ([facility]) gabapentinpregabalin ur ql cfm <5 >=5 Gabap entinpregabalin Ur Ql [facility] ([facility]) Benzodiazepines [Presence] in Urine by Confirmatory method <50 >=50 Benzodiaz Ur Ql [facility] ([facility]) Cocaine [Presence] in Urine by Confirmatory method <50 >=50 Bze Ur Ql [facility] ([facility]) Oxycodone [Mass/volume] in Urine by Confirmatory method >7500 >=100 [facility]codone Ur [facility] ([facility]) Opiates [Presence] in Urine by Confirmatory method >=100 >=1 00 Opiates Ur Ql [facility] ([facility]) 6-Monoacetylmorphine (6-ERIKA) [Presence] in Urine by Confirma tory method <10 >=10 6Mam Ur Ql [facility] ([facility]) Oxymorphone [Mass/volume] in Urine by Confirmatory method 6270 NG/m L >=100 Oxymorphone Ur [facility] ([facility]) Meperidine [Presence] in Urine by Confirmatory method <100 >=100 Meperidine Ur Ql [facility] ([facility]) Methadone [Presence] in Urine by Confirmatory method <200 > =200 Methadone Ur Ql [facility] ([facility]) Carisoprodol+Meprobamate [Presence] in Urine by Screen method <200 >=200 Carisoprodol+meprob Ur Ql [facility] ([facility]) Fentanyl+Norfentanyl [Presence] in Urine by Confirmatory method <5 >=5 Fentanyl+norfentanyl Ur Ql [facility] ([facility]) pH of Urine 4.5 - 9.0 normal pH Ur [place] ([facility]) Tramadol [Presence] in Urine by Confirmatory method <100 >= 100 Tramadol Ur Ql [facility] ([facility]) Cotinine [Presence] in Urine by Confirmatory method <125 >= 125 Cotinine Ur Ql [facility] ([facility]) Creatinine [Mass/volume] in Urine 130.3 mg/dL 20 - 370 normal C reat Ur-nc [place] ([facility]) ID Date Data Source [id number] 05/06/2020 12:00:00 AM EDT [facility] ([facility]) Name Value Range Interpretation Code Description Data Debra rce(s) Supporting Document(s) tizanidine ur ql cfm >=5 >=5 Tizanidine Ur Q l [facility] ([facility]) tizanidine ur [facility] 238 NG/mL >=25 Tizanidine Ur Cfm-mcnc [facility] ([facility]) dehydrotizanidine ur cfm-mcnc 60 NG/mL >=5 Dehydr otizanidine Ur Cfm-mcnc [facility] ([facility]) ID Date Data Source [id number] 05/06/2020 12:00:00 AM EDT [facility] ([facility]) Name Value Range Interpretation Code Description Data Debra rce(s) Supporting Document(s) ID Date Data Source [id number] 05/06/2020 12:00:00 AM EDT [facility] ([facility]) Name Value Range Interpretation Code Description Data Debra rce(s) Supporting Document(s) ID Date Data Source [id number] 05/06/2020 12:00:00 AM EDT [facility] ([facility]) Name Value Range Interpretation Code Description Data Debra rce(s) Supporting Document(s) ID Date Data Source [id number] 05/05/2020 11:38:00 AM EDT [place] ([facility]) Name Value Range Interpretation Code Description Data Debra rce(s) Supporting Document(s) Hemoglobin A1c/Hemoglobin.total in Blood 5.1 Normal Hgb A1c [place] ([facility]) ID Date Data Source [id number] 03/14/2020 10:59:00 AM EDT [place] ([facility]) Name Value Range Interpretation Code Description Data Debra rce(s) Supporting Document(s) Reported Physicians See Note Reported Physicians [facility] Note: Reported Physicians:Ordering: Katja SoloAttending: Katja Mccall ID Date Data Source [id number] 03/14/2020 10:59:00 AM EDT [place] ([facility]) Name Value Range Interpretation Code Description Data Debra rce(s) Supporting Document(s) PROBNP 449 pg/mL Abnormal (applies to non-numeric res ults) PROBNP [facility] ([facility] Note: The following cut-points have bee n suggested for the use of proBNP for the diagnostic evaluation of heart failure (HF) in patients with acute dyspnea: Modality Age Optimal Cut (years) Point Diagnosis (rule in HF) <50 450 pg/mL 50 - 75 900 pg/mL >75 1800 pg/mL Exclusion (rule out HF) Age independent 300 pg/mL Performed at: - [facility] [id number] Technical Data Analyst: Radha Arroyo MD, Phone: [phone] Observer: PROBNP PROBNP [id number] 605.7849 (A) ID Date Data Source [id number] 03/14/2020 10:59:00 AM EDT [facility] ([facility]) Name Value Range Interpretation Code Description Data Debra rce(s) Supporting Document(s) Thyrotropin [Units/volume] in Serum or Plasma by Detec tion limit <= 0.05 mIU/L 3.835 uIU/ML Normal TSH [facility] ([facility]) Note: Patients should not be tested for 72 hours post fluorescein dye angiography. A false depression of result may occur.Responsible Observer: TSH TSH 300.5500 (A) ID Date Data Source [id number] 03/14/2020 10:59:00 AM EDT [facility] ([facility]) Name Value Range Interpretation Code Description Data Debra rce(s) Supporting Document(s) Deprecated Cholesterol.in LDL/Cholestero l.in HDL [Mass ratio] in Serum or Plasma 3.1 Normal CHOL/HDL RATIO [facility] ([facility] ) Note: Responsible Observer: CHOL/HDL RAT IO CHOL/HDL RATIO 300.4700 (A) Cholesterol crystals [Presence] in Stone by Infrared spectroscop y 101 MG/DL Below low normal CHOLESTEROL [facility] ([facility]) Note: Responsible Observer: CHOL CHOLEST JORDAN 300.4350 (A) Cholesterol in HDL [Mass/volume] in Serum or Plasma ultracen trifugate 33 MG/DL Below low normal HDL CHOLESTEROL [facility] ([facility]) Note: Responsible Observer: HDL HDL CHOL ESTEROL 300.4600 (A) Triglyceride [Mass/volume] in Serum or Plasma 75 MG/DL N ormal TRIGLYCERIDES [facility] ([facility]) Note: Responsible Observer: TRIG TRIGLYC ERIDES 300.4300 (A) Cholesterol in LDL [Mass/volume] in Serum or Plasma by Direct as say 53 MG/DL Normal LDL CHOLESTEROL [facility] ([facility]) Note: Responsible Observer: LDL LDL CHOL ESTEROL 300.4400 (A) ID Date Data Source [id number] 03/14/2020 10:59:00 AM EDT [place] ([facility]) Name Value Range Interpretation Code Description Data Debra rce(s) Supporting Document(s) BILIRUBIN,DIRECT 0.9 MG/DL Above high normal BILIRUBIN,DI RECT [facility] ([facility]) Note: Responsible Observer: DIRCT BILIRU BIN DIRECT BILIRUBIN 300.2725 (A) ID Date Data Source [id number] 03/14/2020 10:59:00 AM EDT [place] ([facility]) Name Value Range Interpretation Code Description Data Debra rce(s) Supporting Document(s) Albumin [Mass/volume] in Synovial fluid 3.1 G/DL Normal ALBUMIN [facility] ([facility]) Note: Responsible Observer: ALB ALBUMIN 300.3900 (A) Albumin/Globulin [Mass Ratio] in Amniotic fluid 0.9 G/DL Below low normal ALB/GLOB RATIO [facility] ([facility]) Note: Responsible Observer: A/G RATIO AL B/GLOB RATIO 300.4100 (A) Alanine aminotransferase [Enzymatic activity/volume] in Seru m or Plasma 20 U/L Normal ALT [facility] ([facility]) Note: Responsible Observer: ALT/SGPT ALT 300.3100 (A) Alkaline phosphatase isoenzyme [Units/volume] in Serum or Plasma 90 U/L Normal ALKALINE PHOSPHATASE [facility] ([facility]) Note: Responsible Observer: ALK PHOS ALK KENNEDY PHOSPHATASE 300.3110 (A) Aspartate aminotransferase [Enzymatic activity/volume] in Serum or Plasma 36 U/L Normal AST [facility] ([facility]) Note: Responsible Observer: AST/SGOT AST 300.3050 (A) Urea nitrogen/Creatinine [Mass Ratio] in Serum or Plasma 17 Normal BUN/CREAT RATIO [place] ([facility]) Note: Responsible Observer: BUN/CREAT RA LUPE BUN/CREAT RATIO 300.0450 (A) Bilirubin.total [Mass/volume] in Serum or Plasma 1.8 MG/DL Above high normal BILIRUBIN,TOTAL [place] ([facility]) Note: Responsible Observer: TOTAL BILI T OTAL BILIRUBIN 300.2700 (A) BLOOD UREA NITRO 12 MG/DL Normal BLOOD [facility] NITRO [facility] ([facility]) Note: Responsible Observer: BUN BLOOD UR EA NITROGEN 300.0350 (A) CA 8.4 MG/DL Below low normal CA [place] ([facility]) Note: Responsible Observer: CA CALCIUM 300.2200 (A) Chloride [Moles/volume] in Serum, Plasma or Blood 103 MEQ/L Normal CHLORIDE [place] ([facility]) Note: Responsible Observer: CL CHLORIDE 300.0200 (A) Carbon dioxide, total [Moles/volume] in Serum or Plasma 28 MEQ/L Normal CARBON DIOXIDE [place] ([facility]) Note: Responsible Observer: CO2 CARBON D IOXIDE 300.0250 (A) Creatine/Creatinine [Mass Ratio] in Urine 0.7 MG/DL Meghann l CREATININE [place] ([facility]) Note: Responsible Observer: CREAT CREATI NINE 300.0400 (A) Globulin [Mass/volume] in Serum by calculation 3.3 G/DL Normal GLOBULIN [place] ([facility]) Note: Responsible Observer: GLOB GLOBULI N 300.4050 (A) GFR > 90.0 ML/MIN GFR [place] ([facility]) Note: Stage G1 - Normal or high kidney function The GFR is an estimate of the Glomerular Filtration Rate. It is an aid to assess a patient's renal function. It is not a conclusive diagnosis of kidney disease. GFR normal is >=90 The MDRD GFR calculation is considered valid between the ages of 18 and 75 years only.Responsible Observer: GFR GFR 300.0410 (A) Anion gap in Blood 12 Normal ANION GAP [place] ([facility]) Note: Responsible Observer: ANION GAP AN ION GAP 300.0300 (A) Glucose [Presence] in Urine 109 MG/DL Above high normal G LUCOSE [place] ([facility]) Note: Responsible Observer: GLU GLUCOSE 300.0500 (A) Potassium [Mass/volume] in Blood 4.1 MEQ/L Normal POT ASSIUM [place] ([facility]) Note: Responsible Observer: K POTASSIUM 300.0150 (A) Sodium [Moles/volume] in Serum, Plasma or Blood 139 MEQ/L Normal SODIUM [place] ([facility]) Note: Responsible Observer: NA SODIUM 3 00.0100 (A) Protein [Mass/volume] in Synovial fluid 6.4 G/DL Normal TOTAL PROTEIN [place] ([facility]) Note: Responsible Observer: TP TOTAL PRO TEIN 300.3750 (A) ID Date Data Source [id number] 03/14/2020 10:59:00 AM EDT [place] ([facility]) Name Value Range Interpretation Code Description Data Debra rce(s) Supporting Document(s) Deprecated Creatinine 127.8 MG/DL CREAT RANDOM URI NE [place] ([facility]) Note: No Normal Ranges Available for th is Procedure.Responsible Observer: UR CREAT UR CREATININE 200.3655 (A) Microalbumin [Mass/volume] in Urine < 3.0 MG/L MICROALBUMIN,URINE [place] ([facility]) Note: Responsible Observer: UR MICROALB RND UR MICROALBUMIN RANDOM 200.4000 (A) Microalbumin/Creatinine [Mass Ratio] in Urine 2.3 UG/MG_CR Normal MICROALBUM/CREATININE RATIO,UR [place] ([facility]) Note: Responsible Observer: UR MICROALB/ CRE UR MICROALBUMIN/CREAT RATIO 200.4100 (A) ID Date Data Source [id number] 03/14/2020 10:59:00 AM EDT [place] ([facility]) Name Value Range Interpretation Code Description Data Debra rce(s) Supporting Document(s) APPEARANCE,UR CLEAR APPEARANCE,UR [place] [facility] Note: Responsible Observer: UR APPEAR UR APPEARANCE 200.0250 (A) BILIRUBIN,UR NEGATIVE BILIRUBIN,UR [place] ([facility]) Note: Responsible Observer: UR BILI UR B ILIRUBIN 200.0750 (A) COLOR,UR YELLOW COLOR,UR [facility] Note: Responsible Observer: UR COLOR UR COLOR 200.0200 (A) GLUCOSE, UR NEGATIVE MG/DL GLUCOSE, UR [place] [facility] Note: Responsible Observer: UR GLU UR GL UCOSE 200.0500 (A) KETONES,UR NEGATIVE MG/DL KETONES,UR [place] ([facility]) Note: Responsible Observer: UR KETO UR K ETONES 200.0600 (A) LEUKOCYTE ESTERASE ,UR NEGATIVE LEUKOCYTE EST ERASE ,UR [place] ([facility]) Note: Responsible Observer: UR NITHYA ALDO ASE UR LEUKOCYTE ESTERASE 200.0725 (A) NITRATE,UR NEGATIVE NITRATE,UR [place] ([facility]) Note: Responsible Observer: UR NIT UR NI TRATE 200.0700 (A) OCCULT BLOOD,UR NEGATIVE OCCULT BLOOD,UR [place] ([facility]) Note: Responsible Observer: UR OCLT BLD UR OCCULT BLOOD 200.0650 (A) PH,UR 7.0 PH,UR [place] ([facility]) Note: Responsible Observer: UR PH UR PH 200.0350 (A) PROTEIN,UR NEGATIVE MG/DL PROTEIN,UR [place] ([facility]) Note: Responsible Observer: UR PROT UR P ROTEIN 200.0450 (A) SPECIFIC GRAVITY,UR 1.011 Normal SPECIFIC GRAVITY,UR [place] ([facility]) Note: Responsible Observer: SG URINE SPE CIFIC GRAVITY,UR 200.0410 (A) UROBILINOGEN,UR 4.0 EU_MG/DL Abnormal (applies to non- numeric results) UROBILINOGEN,UR [place] ([facility]) Note: Responsible Observer: UR URO UR UR OBILINOGEN 200.0900 (A) ID Date Data Source [id number] 03/14/2020 10:59:00 AM EDT [place] ([facility]) Name Value Range Interpretation Code Description Data Debra rce(s) Supporting Document(s) BASO % (AUTO) 0.9 % Normal BASO % (AUTO) [place] ([facility]) Note: Responsible Observer: BASO % (AUTO ) BASO % (AUTO) 100.1250 (A) BASO # (AUTO) 0.07 10\\^3/uL Normal BASO # (AUTO) [place] ([facility]) Note: Responsible Observer: BASO # (AUTO ) BASO # (AUTO) 100.1500 (A) EOS # (AUTO) 0.20 10\\^3/uL Normal EOS # (AUTO) [place] ( [facility]) Note: Responsible Observer: EOS # (AUTO) EOS # (AUTO) 100.1450 (A) EOS % (AUTO) 2.6 % Normal EOS % (AUTO) [place] ([facility]) Note: Responsible Observer: EOS % (AUTO) EOS % (AUTO) 100.1200 (A) GRAN # (AUTO) 5.17 10\\^3/uL Normal GRAN # (AUTO) [place] ([facility]) Note: Responsible Observer: GRAN # (AUTO ) GRAN #(AUTO) 100.1325 (A) GRAN % (AUTO) 68.3 % Normal GRAN % (AUTO) [place] ([facility]) Note: Responsible Observer: GRAN % (AUTO ) GRAN % (AUTO) 100.1000 (A) Hematocrit [Volume Fraction] of Blood by Automated count 37.4 % Below low normal HEMATOCRIT [place] ([facility]) Note: Responsible Observer: HCT HEMATOCR IT 100.0400 (A) Hemoglobin [Mass/volume] in Blood 13.1 G/DL Normal HE MOGLOBIN [place] ([facility]) Note: Responsible Observer: HGB HEMOGLOB IN 100.0300 (A) IG % (AUTO) 0.3 % IG % (AUTO) [place] ([facility]) Note: Responsible Observer: IG % (AUTO) IG % (AUTO) 100.1255 (A) IG # (AUTO) 0.0 10\\^3/uL IG # (AUTO) [place] ([facility]) Note: Responsible Observer: IG # (AUTO) IG # (AUTO) 100.1260 (A) LYMPH # (AUTO) 1.5 k/uL Normal LYMPH # (AUTO) [place] ( [facility]) Note: Responsible Observer: LYMPH # (AUT O) LYMPH # (AUTO) 100.1350 (A) LYMPH % (AUTO) 19.5 % Below low normal LYMPH % (AUTO) [place] ([facility]) Note: Responsible Observer: LYMPH % (AUT O) LYMPH % (AUTO) 100.1100 (A) Erythrocyte mean corpuscular hemoglobin [Entitic mass] by Automated count 31.3 PG Normal MCH [place] ([facility]) Note: Responsible Observer: MCH MCH 100 .0600 (A) Erythrocyte mean corpuscular hemoglobin concentration [Mass/volume] by Automated count 35.0 G/DL Normal MCHC [place] ([facility]) Note: Responsible Observer: MCHC MCHC 1 00.0650 (A) MONO # (AUTO) 0.64 k/uL Normal MONO # (AUTO) [place] ([facility]) Note: Responsible Observer: MONO # (AUTO ) MONO # (AUTO) 100.1400 (A) Erythrocyte mean corpuscular volume [Entitic volume] by Auto mated count 89.3 FL Normal MCV [place] ([facility]) Note: Responsible Observer: MCV MCV 100 .0550 (A) MONO % (AUTO) 8.4 % Normal MONO % (AUTO) [place] ([facility]) Note: Responsible Observer: MONO % (AUTO ) MONO% (AUTO) 100.1150 (A) MPV 11.8 FL Normal MPV [place] ([facility]) Note: Responsible Observer: MPV MPV 100 .0950 (A) Platelets [#/volume] in Plasma by Automated count 104 10\\^3/uL Below low normal PLATELET COUNT [place] ([facility]) Note: Responsible Observer: PLT PLATELET COUNT 100.0850 (A) Erythrocytes [#/volume] in Blood by Automated count 4.19 10\\^6/u L Below low normal RED BLOOD COUNT [place] ([facility]) Note: Responsible Observer: RBC RED BLOO D COUNT 100.0250 (A) Erythrocyte distribution width [Ratio] by Automated count 14.0 % Normal RDW [place] ([facility]) Note: Responsible Observer: RDW RDW 100 .0700 (A) Leukocytes [#/volume] in Blood by Automated count 7.58 10\\^3/uL Normal WHITE BLOOD COUNT [place] ([facility]) Note: Responsible Observer: WBC WHITE BL OOD COUNT 100.0150 (A) ID Date Data Source [id number] 03/14/2020 01:14:00 PM EDT [facility] Has Patient Fasted For The Past 12 Hour s? N Has Patient Fasted For The Past 12 Hour s? N Has Patient Fasted For The Past 12 Hour s? N Has Patient Fasted For The Past 12 Hour s? N Has Patient Fasted For The Past 12 Hour s? N Name Value Range Interpretation Code Description Data Debra rce(s) Supporting Document(s) WHITE BLOOD COUNT 7.58 10^3/uL 4.00-10.50 N [facility] RED BLOOD COUNT 4.19 10^6/uL 4.30-5.80 L [facility] HEMOGLOBIN 13.1 G/DL 13.0-17.5 N [facility] HEMATOCRIT 37.4 % 41.0-53.0 L [facility] MCV 89.3 FL 80.0-100.0 N [facility] MCH 31.3 PG 27.0-34.0 N [facility] MCHC 35.0 G/DL 32-36 N [facility] RDW 14.0 % 11.5-14.5 N [facility] PLATELET COUNT 104 10^3/uL 130-400 L [facility] MPV 11.8 FL 8.7-13.2 N [facility] GRAN % (AUTO) 68.3 % 42.0-75.0 N [facility] LYMPH % (AUTO) 19.5 % 20.0-51.0 L [facility] MONO % (AUTO) 8.4 % 2.0-15.0 N [facility] EOS % (AUTO) 2.6 % 0.0-11.0 N [facility] BASO % (AUTO) 0.9 % 0.0-2.0 N [facility] IG % (AUTO) 0.3 % 1.00-5.00 [facility] IG # (AUTO) 0.0 10^3/uL <0.5 [facility] GRAN # (AUTO) 5.17 10^3/uL 1.50-6.50 N [facility] LYMPH # (AUTO) 1.5 k/uL 1.0-5.0 N [facility] MONO # (AUTO) 0.64 k/uL 0.20-1.50 N [facility] EOS # (AUTO) 0.20 10^3/uL 0.00-1.10 N [facility] BASO # (AUTO) 0.07 10^3/uL 0.00-0.20 N [facility] ID Date Data Source [id number] 03/14/2020 01:27:00 PM EDT [facility] Has Patient Fasted For The Past 12 Hour s? N Has Patient Fasted For The Past 12 Hour s? N Has Patient Fasted For The Past 12 Hour s? N Has Patient Fasted For The Past 12 Hour s? N Has Patient Fasted For The Past 12 Hour s? N Name Value Range Interpretation Code Description Data Debra rce(s) Supporting Document(s) COLOR,UR YELLOW YELLOW [facility] APPEARANCE,UR CLEAR CLEAR [facility] PH,UR 7.0 5.0-8.0 [facility] SPECIFIC GRAVITY,UR 1.011 1.002-1.035 N [facility] PROTEIN,UR NEGATIVE MG/DL NEGATIVE [facility] GLUCOSE, UR NEGATIVE MG/DL NEGATIVE [facility] KETONES,UR NEGATIVE MG/DL NEGATIVE [facility] OCCULT BLOOD,UR NEGATIVE NEGATIVE [facility] NITRATE,UR NEGATIVE NEGATIVE [facility] LEUKOCYTE ESTERASE ,UR NEGATIVE NEGATIVE [facility] BILIRUBIN,UR NEGATIVE NEGATIVE [facility] UROBILINOGEN,UR 4.0 EU MG/DL NEG-0-1.0 [facility] ID Date Data Source [id number] 03/14/2020 01:42:00 PM EDT [facility] Has Patient Fasted For The Past 12 Hour s? N Has Patient Fasted For The Past 12 Hour s? N Has Patient Fasted For The Past 12 Hour s? N Has Patient Fasted For The Past 12 Hour s? N Has Patient Fasted For The Past 12 Hour s? N Name Value Range Interpretation Code Description Data Debra rce(s) Supporting Document(s) CREAT RANDOM URINE 127.8 MG/DL [facility] No Normal Ranges Available for this Pro cedure. MICROALBUMIN,URINE < 3.0 MG/L [facility] MICROALBUM/CREATININE RATIO,UR 2.3 UG/MG CR 0.0-30.0 N [facility] ID Date Data Source [id number] 03/17/2020 03:09:00 PM EDT [facility] Has Patient Fasted For The Past 12 Hour s? N Has Patient Fasted For The Past 12 Hour s? N Has Patient Fasted For The Past 12 Hour s? N Has Patient Fasted For The Past 12 Hour s? N Has Patient Fasted For The Past 12 Hour s? N Name Value Range Interpretation Code Description Data Debra rce(s) Supporting Document(s) PROBNP 449 pg/mL 0-376 A [facility] The following cut-points have been sugg ested for the use of proBNP for the diagnostic evaluation of heart failure (HF) in patients with acute dyspnea: Modality Age Optimal Cut (years) Point Diagnosis (rule in HF) <50 450 pg/mL 50 - 75 900 pg/mL >75 1800 pg/mL Exclusion (rule out HF) Age independent 300 pg/mL Performed at: - [facility] [id number] Technical Data Analyst: Radha Arroyo MD, Phone: [phone] ID Date Data Source [id number] 03/14/2020 01:42:00 PM EDT [facility] Has Patient Fasted For The Past 12 Hour s? N Has Patient Fasted For The Past 12 Hour s? N Has Patient Fasted For The Past 12 Hour s? N Has Patient Fasted For The Past 12 Hour s? N Has Patient Fasted For The Past 12 Hour s? N Name Value Range Interpretation Code Description Data Debra rce(s) Supporting Document(s) SODIUM 139 MEQ/L 135-145 N [facility] POTASSIUM 4.1 MEQ/L 3.5-5.3 N [facility] CHLORIDE 103 MEQ/L 94-110 N [facility] CARBON DIOXIDE 28 MEQ/L 22-33 N [facility] ANION GAP 12 5-16 N [facility] BLOOD UREA NITRO 12 MG/DL 7-25 N [facility] CREATININE 0.7 MG/DL 0.6-1.4 N [facility] GFR > 90.0 ML/MIN [facility] Stage G1 - Normal or high kidney functi on The GFR is an estimate of the Glomerular Filtration Rate. It is an aid to assess a patient's renal function. It is not a conclusive diagnosis of kidney disease. GFR normal is >=90 The MDRD GFR calculation is considered valid between the ages of 18 and 75 years only. BUN/CREAT RATIO 17 8-36 N [facility] GLUCOSE 109 MG/DL 70-100 H [facility] CA 8.4 MG/DL 8.7-10.5 L [facility] BILIRUBIN,TOTAL 1.8 MG/DL 0.1-1.3 H [facility] AST 36 U/L 5-40 N [facility] ALT 20 U/L 5-48 N [facility] ALKALINE PHOSPHATASE 90 U/L 40-140 N [facility] alth TOTAL PROTEIN 6.4 G/DL 5.9-8.3 N [facility] ALBUMIN 3.1 G/DL 3.0-5.1 N [facility] GLOBULIN 3.3 G/DL 1.5-3.5 N [facility] ALB/GLOB RATIO 0.9 G/DL 1.0-3.0 L [facility] ID Date Data Source [id number] 03/14/2020 01:42:00 PM EDT [facility] Has Patient Fasted For The Past 12 Hour s? N Has Patient Fasted For The Past 12 Hour s? N Has Patient Fasted For The Past 12 Hour s? N Has Patient Fasted For The Past 12 Hour s? N Has Patient Fasted For The Past 12 Hour s? N Name Value Range Interpretation Code Description Data Debra rce(s) Supporting Document(s) BILIRUBIN,DIRECT 0.9 MG/DL 0-0.4 H [facility] ID Date Data Source [id number] 03/14/2020 01:42:00 PM EDT [facility] Has Patient Fasted For The Past 12 Hour s? N Has Patient Fasted For The Past 12 Hour s? N Has Patient Fasted For The Past 12 Hour s? N Has Patient Fasted For The Past 12 Hour s? N Has Patient Fasted For The Past 12 Hour s? N Name Value Range Interpretation Code Description Data Debra rce(s) Supporting Document(s) TRIGLYCERIDES 75 MG/DL 45-150 N [facility] CHOLESTEROL 101 MG/DL 125-200 L [facility] LDL CHOLESTEROL 53 MG/DL 50-130 N [facility] HDL CHOLESTEROL 33 MG/DL 39-96 L [facility] CHOL/HDL RATIO 3.1 0-4.9 N [facility] ID Date Data Source [id number] 03/14/2020 01:42:00 PM EDT [facility] Has Patient Fasted For The Past 12 Hour s? N Has Patient Fasted For The Past 12 Hour s? N Has Patient Fasted For The Past 12 Hour s? N Has Patient Fasted For The Past 12 Hour s? N Has Patient Fasted For The Past 12 Hour s? N Name Value Range Interpretation Code Description Data Debra rce(s) Supporting Document(s) TSH 3.835 uIU/ML 0.470-4.200 N [facility] Patients should not be tested for 74 ho urs post fluorescein dye angiography. A false depression of result may occur. ID Date Data Source [id number] 12/07/2019 12:31:13 PM EDT [facility] Name Value Range Interpretation Code Description Data Debra rce(s) Supporting Document(s) POC GLUCOSE 193 mg/dL (70-99) H [facility] NOTIFIED NURSEPERFORMED BY CLINICAL S ZAY ID Date Data Source [id number] 12/07/2019 12:03:08 PM EDT [facility] Name Value Range Interpretation Code Description Data Debra rce(s) Supporting Document(s) SODIUM 137 mmol/L (136-145) [facility] POTASSIUM 4.1 mmol/L (3.6-5.2) [facility] CHLORIDE 100 mmol/L (100-108) [facility] CO2 31 mmol/L (22-31) [facility] ANION GAP 6 mmol/L (7-16) L [facility] UREA NITROGEN 10 mg/dL (7-24) [facility] CREATININE 0.82 mg/dL (0.80-1.30) [facility] BUN/CREAT RATIO 12.2 RATIO (10.0-20.0) [facility] GLUCOSE 176 mg/dL (70-99) H [facility] CALCIUM 8.5 mg/dL (8.4-10.2) [facility] GFR >60 ml/min/1.73m2 (>59) [facility] GFR ( AMER) >60 ml/min/1.73m2 (>59) [facility] GFR INTERPRETATION [facility] --NORMAL KIDNEY FUNCTION OR MILD DISEASE - GFR >OR= 60CHRONIC KIDNEY DISEASE - GFR 15 - 59RENAL FAILURE - GFR <15 Est. GFR calculation based on the MDRDstudy equation, which assumes a steadystate for creatinine. Est. GFR should notbe used for medication dosing. ID Date Data Source [id number] 12/07/2019 08:49:27 AM EDT [facility] Name Value Range Interpretation Code Description Data Debra rce(s) Supporting Document(s) POC GLUCOSE 110 mg/dL (70-99) H [facility] PERFORMED BY CLINICAL STAFF ID Date Data Source [id number] 12/06/2019 10:10:17 PM EDT [facility] Name Value Range Interpretation Code Description Data Debra rce(s) Supporting Document(s) POC GLUCOSE 147 mg/dL (70-99) H [facility] NOTIFIED NURSEPERFORMED BY CLINICAL S TAFF ID Date Data Source [id number] 12/06/2019 06:39:39 PM EDT [facility] Name Value Range Interpretation Code Description Data Debra rce(s) Supporting Document(s) POC GLUCOSE 191 mg/dL (70-99) H [facility] PERFORMED BY CLINICAL STAFF ID Date Data Source [id number] 12/06/2019 03:03:11 PM EDT [facility] Name Value Range Interpretation Code Description Data Debra rce(s) Supporting Document(s) POC GLUCOSE 135 mg/dL (70-99) H [facility] PERFORMED BY CLINICAL STAFF ID Date Data Source [id number] 12/06/2019 10:57:00 AM EDT [facility] ([facility]) Name Value Range Interpretation Code Description Data Debra rce(s) Supporting Document(s) Creatinine 0.82 [facility] Glucose 176 [facility] Blood Urea Nitrogen 10 [facility] Sodium 137 [facility] Potassium 4.1 [facility] Carbon Dioxide 31 [facility]) Chloride 100 [facility] Glomerular filtration rate/1.73 sq M.pre dicted [Volume Rate/Area] in Serum or Plasma by Creatinine-based formula (MDRD) Laboratory test result [facility]) Calcium 8.5 [facility] ID Date Data Source [id number] 12/06/2019 09:16:53 AM EDT [facility] Name Value Range Interpretation Code Description Data Debra rce(s) Supporting Document(s) POC GLUCOSE 118 mg/dL (70-99) H [facility] PERFORMED BY CLINICAL STAFF ID Date Data Source [id number] 12/06/2019 07:53:42 AM EDT [facility] Name Value Range Interpretation Code Description Data Debra rce(s) Supporting Document(s) POC GLUCOSE 120 mg/dL (70-99) H [facility] PERFORMED BY CLINICAL STAFF ID Date Data Source [id number] 12/08/2019 12:50:25 PM EDT [facility] Name Value Range Interpretation Code Description Data Debra rce(s) Supporting Document(s) TONI SCREEN @ (NEG) [facility] [place] ID Date Data Source [id number] 12/06/2019 06:51:21 AM EDT [facility] Name Value Range Interpretation Code Description Data Debra rce(s) Supporting Document(s) PHOSPHORUS 2.7 mg/dL (2.5-4.5) [facility] ID Date Data Source [id number] 12/06/2019 06:51:21 AM EDT [facility] Name Value Range Interpretation Code Description Data Edbra rce(s) Supporting Document(s) SODIUM 140 mmol/L (136-145) [facility] POTASSIUM 3.6 mmol/L (3.6-5.2) [facility] CHLORIDE 102 mmol/L (100-108) [facility] CO2 33 mmol/L (22-31) H [facility] ANION GAP 5 mmol/L (7-16) L [facility] UREA NITROGEN 9 mg/dL (7-24) [facility] CREATININE 0.69 mg/dL (0.80-1.30) L [facility] BUN/CREAT RATIO 13.0 RATIO (10.0-20.0) [facility] GLUCOSE 119 mg/dL (70-99) H [facility] CALCIUM 8.0 mg/dL (8.4-10.2) L [facility] TOTAL PROTEIN 5.7 g/dL (6.4-8.2) L [facility] ALBUMIN 2.2 g/dL (3.2-4.5) L [facility] GLOBULIN 3.5 g/dL (2.7-4.3) [facility] ALB/GLOB RATIO 0.6 RATIO [facility] ALKALINE PHOSPHATASE 85 U/L (45-117) [facility] BILIRUBIN,TOTAL 1.7 mg/dL (0.0-1.0) H [facility] PLEASE NOTE:Total bilirubin results may be falselyelevated in patients taking Eltrombopag. AST (SGOT) 37 U/L (11-39) [facility] ALT (SGPT) 20 U/L (12-78) [facility] GFR >60 ml/min/1.73m2 (>59) [facility] GFR ( AMER) >60 ml/min/1.73m2 (>59) [facility] GFR INTERPRETATION [facility] --NORMAL KIDNEY FUNCTION OR MILD DISEASE - GFR >OR= 60CHRONIC KIDNEY DISEASE - GFR 15 - 59RENAL FAILURE - GFR <15 Est. GFR calculation based on the MDRDstudy equation, which assumes a steadystate for creatinine. Est. GFR should notbe used for medication dosing. ID Date Data Source [id number] 12/06/2019 06:51:21 AM EDT [facility] Name Value Range Interpretation Code Description Data Debra rce(s) Supporting Document(s) MAGNESIUM 1.7 mg/dL (1.7-2.4) [facility] ID Date Data Source [id number] 12/06/2019 06:33:13 AM EDT [facility] Name Value Range Interpretation Code Description Data Debra rce(s) Supporting Document(s) PT 13.9 s (9.2-11.9) H [facility] INR 1.35 [facility] SUGGESTED THERAPEUTIC RANGES USING INR F ORSTABILIZED ANTICOAGULATED PATIENTS:STANDARD DOSE THERAPY INR 2.0-3.0 DVT, PE, PREVENT DVT OR EMBOLISMHIGH DOSE THERAPY INR 2.5-3.5 PREVENT EMBOLISM FROM MECHANICAL HEART VALVE ID Date Data Source [id number] 12/06/2019 06:23:55 AM EDT [facility] Name Value Range Interpretation Code Description Data Debra rce(s) Supporting Document(s) WBC 7.1 10*3/uL (4.1-11.0) [facility] [place] RBC 3.97 10*6/uL (4.60-6.10) L [facility] HGB 13.0 g/dL (13.5-18.0) L [facility] HCT 37.1 % (41.0-53.0) L [facility] MCV 93.3 fL (80.0-95.0) [facility] MCH 32.7 pg (27.0-32.0) H [facility] MCHC 35.1 g/dL (32.0-36.0) [facility] RDW 14.4 % (10.5-14.5) [facility] PLT 104 10*3/uL (150-450) L [facility] MPV 8.5 fL (7.1-10.7) [facility] ID Date Data Source [id number] 12/05/2019 09:22:49 PM EDT [facility] [facility] [place] Name Value Range Interpretation Code Description Data Debra rce(s) Supporting Document(s) POC GLUCOSE 209 mg/dL (70-99) H [facility] [facility] NOTIFIED NURSEPERFORMED BY CLINICAL S TAFF ID Date Data Source [id number] 12/05/2019 05:10:58 PM EDT [facility] Name Value Range Interpretation Code Description Data Debra rce(s) Supporting Document(s) POC GLUCOSE 152 mg/dL (70-99) H [facility] [place] [facility] NOTIFIED NURSEPERFORMED BY CLINICAL S TAFF ID Date Data Source [id number] 12/05/2019 02:27:17 PM EDT [facility] [place] [facility] [place] Name Value Range Interpretation Code Description Data Debra rce(s) Supporting Document(s) POC GLUCOSE 180 mg/dL (70-99) H [facility] [place] [facility] PERFORMED BY CLINICAL STAFF ID Date Data Source [id number] 12/05/2019 09:36:00 AM EDT [facility] DATE OF EXAM: 12/05/2019US Abdomen Ltd L iver, Doppler Abdomen Pelvis Comp CLINICAL HISTORY: CIRRHOSIS. PRIOR STUDIES:CT abdomen and pelvis 12/04/2019 The liver has a cirrhotic morphology with large perihepatic ascites. Hepatic length 15.5 cm. No discrete hepatic lesion visualized. Doppler imaging of the right upper quadrant: Hepatopedal flow noted in the patent portal vein. Hepatic vein, hepatic artery, splenic vein, splenic artery, IVC, all patent with normal direction of flow. The common bile duct is within normal limits, measuring approximately 5.5 mm in AP dimension. Status post cholecystectomy. Pancreas is obscured by bowel gas The right kidney measures 13.1 cm in length. Renal cortical thickness is within normal limits. The right renal contour and parenchymal pattern of echogenicity are within normal limits. There is no evidence of hydronephrosis or renal calculi.No focal renal lesion. IMPRESSION: Cirrhosis with large ascites. No biliary ductal dilatation. Patent portal vein with appropriate direction of flow. Hepatic veins, hepatic artery, splenic vein and artery, IVC are patent with normal direction of flow. Professional interpretation performed at [facility] .End of diagnostic report for accession: [id number] Interpreted: Xavi Mariscal MDTranscribed: 12/05/2019 09:33 AMSigned: 12/05/2019 09:36 AM Xavi Mariscal MD [facility] # [id number] BILL # [id number] Name Value Range Interpretation Code Description Data Debra rce(s) Supporting Document(s) ID Date Data Source [id number] 12/05/2019 09:36:00 AM EDT [facility] DATE OF EXAM: 12/05/2019US Abdomen Ltd L iver, Doppler Abdomen Pelvis Comp CLINICAL HISTORY: CIRRHOSIS. PRIOR STUDIES:CT abdomen and pelvis 12/04/2019 The liver has a cirrhotic morphology with large perihepatic ascites. Hepatic length 15.5 cm. No discrete hepatic lesion visualized. Doppler imaging of the right upper quadrant: Hepatopedal flow noted in the patent portal vein. Hepatic vein, hepatic artery, splenic vein, splenic artery, IVC, all patent with normal direction of flow. The common bile duct is within normal limits, measuring approximately 5.5 mm in AP dimension. Status post cholecystectomy. Pancreas is obscured by bowel gas The right kidney measures 13.1 cm in length. Renal cortical thickness is within normal limits. The right renal contour and parenchymal pattern of echogenicity are within normal limits. There is no evidence of hydronephrosis or renal calculi.No focal renal lesion. IMPRESSION: Cirrhosis with large ascites. No biliary ductal dilatation. Patent portal vein with appropriate direction of flow. Hepatic veins, hepatic artery, splenic vein and artery, IVC are patent with normal direction of flow. Professional interpretation performed at [facility] .End of diagnostic report for accession: [id number] Interpreted: Xavi Mariscal MDTranscribed: 12/05/2019 09:33 AMSigned: 12/05/2019 09:36 AM Xavi Mariscal MD [facility] # [id number] [facility] # [id number] Name Value Range Interpretation Code Description Data Debra rce(s) Supporting Document(s) ID Date Data Source [id number] 12/05/2019 08:02:35 AM EDT [facility] [place] [facility] Name Value Range Interpretation Code Description Data Debra rce(s) Supporting Document(s) POC GLUCOSE 106 mg/dL (70-99) H [facility] [place] [facility] [place] PERFORMED BY CLINICAL STAFF ID Date Data Source [id number] 12/05/2019 07:08:37 AM EDT [facility] [place] Name Value Range Interpretation Code Description Data Debra rce(s) Supporting Document(s) SODIUM 140 mmol/L (136-145) [facility] [place] [facility] POTASSIUM 3.0 mmol/L (3.6-5.2) L [facility] [place] [facility] CHLORIDE 100 mmol/L (100-108) [facility] [facility] CO2 32 mmol/L (22-31) H [facility] [place] [facility] ANION GAP 8 mmol/L (7-16) [facility] [place] [facility] UREA NITROGEN 9 mg/dL (7-24) [facility] [facility] CREATININE 0.60 mg/dL (0.80-1.30) L [facility] [place] [facility] BUN/CREAT RATIO 15.0 RATIO (10.0-20.0) [facility] GLUCOSE 118 mg/dL (70-99) H [facility] [place] [facility] CALCIUM 7.9 mg/dL (8.4-10.2) L [facility] [place] [facility] TOTAL PROTEIN 5.5 g/dL (6.4-8.2) L [facility] [place] [facility] ALBUMIN 2.1 g/dL (3.2-4.5) L [facility] [place] [facility] GLOBULIN 3.4 g/dL (2.7-4.3) [facility] [facility] ALB/GLOB RATIO 0.6 RATIO [facility] [facility] ALKALINE PHOSPHATASE 84 U/L (45-117) [facility] BILIRUBIN,TOTAL 1.6 mg/dL (0.0-1.0) H [facility] [place] [facility] PLEASE NOTE:Total bilirubin results may be falselyelevated in patients taking Eltrombopag. AST (SGOT) 29 U/L (11-39) [facility] [place] [facility] ALT (SGPT) 18 U/L (12-78) [facility] [facility] GFR >60 ml/min/1.73m2 (>59) [facility] [place] [facility] GFR ( AMER) >60 ml/min/1.73m2 (>59) [facility] [place] [facility] GFR INTERPRETATION [facility] --NORMAL KIDNEY FUNCTION OR MILD DISEASE - GFR >OR= 60CHRONIC KIDNEY DISEASE - GFR 15 - 59RENAL FAILURE - GFR <15 Est. GFR calculation based on the MDRDstudy equation, which assumes a steadystate for creatinine. Est. GFR should notbe used for medication dosing. ID Date Data Source [id number] 12/05/2019 06:33:50 AM EDT [facility] [facility] Name Value Range Interpretation Code Description Data Debra rce(s) Supporting Document(s) WBC 7.4 10*3/uL (4.1-11.0) [facility] [place] [facility] [place] RBC 3.86 10*6/uL (4.60-6.10) L [facility] [place] [facility] HGB 12.6 g/dL (13.5-18.0) L [facility] [place] [facility] HCT 35.8 % (41.0-53.0) L [facility] [place] [facility] MCV 92.8 fL (80.0-95.0) [facility] [place] [facility] MCH 32.7 pg (27.0-32.0) H [facility] [place] [facility] MCHC 35.3 g/dL (32.0-36.0) [facility] [place] [facility] RDW 14.6 % (10.5-14.5) H [facility] [place] [facility] PLT 112 10*3/uL (150-450) L [facility] [place] [facility] MPV 8.9 fL (7.1-10.7) [facility] [facility] ID Date Data Source [id number] 12/04/2019 10:13:00 PM EDT [facility] [place] [address] [address] [place], [place] [id number] NAME: MIKEY TAPIADATE OF : 2REPORT: ADMISSION NOTEPATIENT NUMBER: [id number] STATUS: IPMEDICAL RECORD NUMBER: [id number] OF ADMISSION: 12/04/2019ROOM: [address] [place] [address] CARE PROVIDER: BLANQUITA Lamb COMPLAINT ON ADMISSION: Increasing abdominal girth.HISTORY OF PRESENT ADMISSION: Mr. Tapia is a 69-year-old gentleman witha past medical history significant for hypertension, diabetes with diabeticperipheral neuropathy and chronic back pain on methadone. He has chroniclower extremity edema. It is of note that he is not on diabeticmedications at this time, but *------* but that has been sincediscontinued. He presents to emergency room today due to progressive fluidretention in his abdomen, being distended and gaining over approximately 40pounds of weight in the last 4 to 6 weeks. He presents to emergency roomwhere he is found to have significant severe ascites with CT findingsindicative of cirrhosis, elevated bilirubin, elevated SGOT although slight.The patient denies any history of liver disease, any alcohol use. Nonausea, no vomiting, really no systemic signs. Due to significant ascitesand new diagnosis of cirrhosis, i.e., shrunken cirrhotic liver noted on CTabdomen as well as splenomegaly, the patient is being admitted to [facility] for urgent paracentesis and we will obtain GIconsultation.PAST MEDICAL HISTORY: Includes,1. Chronic pain on methadone.2. Hypertension.3. Diabetes, unclear of his medications.SURGICAL HISTORY:1. Status post tarsal tunnel release.2. Status post cholecystectomy.FAMILY HISTORY: Noncontributory. There is no liver disease or diabetes orhypertension in the family.SOCIAL HISTORY: No alcohol. No tobacco. No drug use.ALLERGIES: No known allergies.CURRENT MEDICATIONS:Home Medicationshydrochlorothiazide 12.5 mg Tablet 1 tablet oral dailyMedication Status: activeLast Taken Date/Time: 12/04/19methaDONE 10 mg Tablet 0.5 tablet oral three times a dayMedication Status: activeLast Taken Date/Time: 12/04/19 0345REVIEW OF SYSTEMS: Constitutional - he feels okay. HEENT: No headache. No vision loss. No hearing loss. Cardiac System: Denies chest orpalpitations. Pulmonary System: No cough or shortness of breath. GISystem: Increasing abdominal girth, weight gain, positive ascites,increased lower extremity edema, but no significant abdominal pain withthis. No nausea or vomiting. No change in bladder or bowel habits. Remainder of 14-system review is negative.PHYSICAL EXAMINATION: In the ED revealing an alert man, comfortable. Skinis warm and dry. No acute distress. Vital Signs: Temperature 36.8,heartbeat 76, respiratory rate 18, blood pressure 138/75, O2 saturation 99percent on room air. Eyes/HEENT: Normal. Cor: S1, S2. No murmurs. Nogallops. Lungs: Decreased at bases, but clear. Abdomen is significantlydistended, significant ascites. Extremities with 2+ edema. NeurologicalExam: Normal. No focal deficits noted. Testicle/Rectal: Exam deferredin the ED.LABS AND STUDIES FROM THE ED: UA is unremarkable. LDH 196. Total protein6, albumin 2.3. Potassium 3, sodium is 137, chloride 98, bicarb 32,*------* 0.77, glucose 142. GFR over 60. SGOT 45, SGPT 23, total bili is2.5. Lipase 91. NT-proBNP is 296. Unconjugated bili 1.5. Remotehemoglobin A1c from 04/2019 was 7.8. WBCs 8.3, hemoglobin 13.1, .8, platelets are 125.Chest x-ray shows mild pulmonary vascular congestion, no air spaceconsolidation. EKG shows a normal sinus rhythm, no acute ST-T wavechanges. Minimal *------*. QT/QTc 74/72.CT abdomen and pelvis - shrunken "cirrhotic" liver. No enhancing mass. Significant ascites as amendable to drainage. Status post cholecystectomy.Common bile duct not dilated. No intrahepatic ductal dilatation. Nopancreatic inflammation or ductal dilatation. Mild fatty liver. Splenomegaly is noted measuring 14.4 cm. No abdominal aneurysm. 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 Portal vein is well opacifiedand patent. No abdominal or retroperitoneal lymphadenopathy noted.IMPRESSION AND PLAN: This is a 69-year-old gentleman with history ofhypertension, diabetes, diabetic neuropathy for which he takes methadone,unfortunately finding now acute insidious onset of ascites, large amount,with a cirrhotic shrunken liver without the use of alcohol or recreationaldrugs. Medicine team has been called to admit.1. Cirrhosis of liver with ascites, nonalcoholic use, i.e., DAVILA probably. He has been scheduled for paracentesis today. We will send off hepatitis panel, alpha- fetoprotein, mitochondrial IgG, TONI screen, F-Actin IgG, alpha-1 antitrypsin, ceruloplasmin and again hepatitis panel. We will empirically place the patient on Lasix 40 mg daily and start on *------* 25 mg p.o. daily. I have asked GI for consultation. We will arrange paracentesis now with fluid to be sent for culture. We will obtain abdominal ultrasound complete. Management of his cirrhosis will be based on the findings of lab workup. Appreciate GI consultation. May consider starting *------* again pending on GI workup.2. Hypertension - he is only on hydrochlorothiazide. I am replacing this with Lasix. May certainly consider nadolol or beta linwood if pressures allow.3. Chronic pain from diabetes - diabetic neuropathy - he is still on methadone, we will continue same. He is not on diabetic medications at home - we will place him on fingersticks with insulin coverage.4. Hypokalemia - we will replete orally 40 mg daily, first dose now.5. General considerations - vital signs q.4 h. Is and Os q.shift.CODE STATUS: Full code.DVT PROPHYLAXIS: With heparin 5000 units subcu q.12 h.Due to the acute ascites, likely portal hypertension, hypertension,splenomegaly, likely need for recurrent paracentesis worse with GIbleeding, patient is being admitted into the inpatient service at thistime.DICTATED BY: JOBY Sanchezictated: 12/04/2019 19:05DT: 12/04/2019 19:14Job #: [id number]: Dominique LambNOTE: [facility] computer generated reports are notconfirmed or authenticated unless they are signed by the providerElectronically Authenticated by:GENEVIEVE EDWARDS MD On 12/04/2019 10:13 PM EDT Name Value Range Interpretation Code Description Data Debra rce(s) Supporting Document(s) ID Date Data Source [id number] 12/10/2019 05:18:32 PM EDT [facility] [place] [facility] Name Value Range Interpretation Code Description Data [facility] rce(s) Supporting Document(s) SMOOTH MUS IGG TITER [facility] <1:20Reference range: <1:20 INTERPRETIVE INFORMATION: Smooth Muscle Ab, IgG Titer Less than 1:20 ........ Negative - No antibody detected. 1:20 - 1:80 .......... Weak Positive - Suggest repeat in two to three weeks with fresh specimen. 1:160 or greater ...... Positive - Suggestive of autoimmune hepatitis or chronic active hepatitis. Performed by [facility], [address] [place] [id number] www.[facility], Nazario Snider MD, Lab. Director INTERPRETIVE INFORMATION: Smooth Muscle Ab, IgG Titer Less than 1:20 ........ Negative - No antibody detected. 1:20 - 1:80 .......... Weak Positive - Suggest repeat in two to three weeks with fresh specimen. 1:160 or greater ...... Positive - Suggestive of autoimmune hepatitis or chronic active hepatitis. Performed by [facility], [address] [place] [id number] www.[facility], Nazario Snider MD, Lab. Director ID Date Data Source [id number] 12/09/2019 03:26:46 PM EDT [facility] Name Value Range Interpretation Code Description Data Debra rce(s) Supporting Document(s) HEP DELTA VIRUS AB Lab [facility] NegativeReference range: Negative No ant ibody to Hepatitis Delta agent was detected. Order anti-HDV testing only when Hepatitis B virus infection has been confirmed. INTERPRETIVE INFORMATION: Hepatitis Delta Ab Test developed and characteristics determined by [facility]. See Compliance Statement D: [facility]/ Performed by [facility], [address] [place] [id number] www.[email or web address], Nazario Snider MD, Lab. Director ID Date Data Source [id number] 12/09/2019 12:46:12 AM EDT [facility] Name Value Range Interpretation Code Description Data Debra rce(s) Supporting Document(s) FACTIN IGG 26 H [facility] Reference range: 0 to 19Unit: Units INTE RPRETIVE INFORMATION: F-Actin (Smooth Muscle) Antibody, IgG by ROOPA 19 Units or less ....... Negative 20 - 30 Units .......... Weak Positive-Suggest repeat testing in two to three weeks with fresh specimen. 31 Units or greater..... Positive-Suggestive of autoimmune hepatitis type 1 or chronic active hepatitis. F-actin IgG antibodies have been shown to have increased sensitivity for autoimmune hepatitis (AIH) but lower specificity than smooth muscle antibodies (SMA). F- actin IgG antibodies can also be seen in SMA-negative disease controls (non- AIH), especially in patients with primary biliary cirrhosis and chronic hepatitis C infections. Some patients with AIH may be SMA-positive but negative for F-actin IgG. Consider testing for SMA by IFA if suspicion for AIH is strong. Performed by [facility], [address] [facility] [place] [address] www.[facility], Nazario Snider MD, Lab. Director ID Date Data Source [id number] 12/09/2019 12:12:27 AM EDT [facility] [place] [facility] Name Value Range Interpretation Code Description Data Debra rce(s) Supporting Document(s) HEPATITIS Be AG [facility] [place] [facility] NegativeReference range: Negative Perfor med by [facility], [address] [facility] [place] [address] www.[facility], Nazario Snider MD, Lab. Director ID Date Data Source [id number] 12/08/2019 12:50:15 PM EDT [facility] [place] [facility] Name Value Range Interpretation Code Description Data Debra rce(s) Supporting Document(s) TONI SCREEN @ (NEG) [facility] [place] [facility] [place] ID Date Data Source [id number] 12/07/2019 03:01:13 PM EDT [facility] [place] [facility] Name Value Range Interpretation Code Description Data Debra rce(s) Supporting Document(s) AFP-TUMOR MARKER @ 4.7 ng/mL (<6.0) Lab [facility] [place] ASSAY BY IMMUNOCHEMILUMINOMETRIC ASSAYON THE SIEMENS IMMULITE 2000 XPi. VALUESOBTAINED WITH DIFFERENT METHODS OR KITSCANNOT BE USED INTERCHANGEABLY FOR PATIENTMONITORING. RESULTS CANNOT BE INTERPRETEDAS ABSOLUTE EVIDENCE OF THE PRESENCE ORABSENCE OF MALIGNANCY. THE TEST IS NOTINTERPRETABLE IN . AFP CAN BE INCREASED IN A VARIETY OFBENIGN DISEASES. SPECIFICITY FOR THE DETECTION OF MALIGNANCY INCREASES WITHINCREASING LEVELS. ID Date Data Source [id number] 12/07/2019 01:14:52 PM EDT [facility] [place] [facility] Name Value Range Interpretation Code Description Data Debra rce(s) Supporting Document(s) F ACTIN IGG AB @ (<20) [facility] [place] [facility] ID Date Data Source [id number] 12/07/2019 01:13:17 PM EDT [facility] [place] [facility] Name Value Range Interpretation Code Description Data Debra rce(s) Supporting Document(s) MITOCHONDRIAL IGG @ 3.9 units (<20.1) [facility] [place] INTERPRET ATION OF RESULTS: < 20.1 UNITS [id number] UNITS EQUIVOCAL > 24.9 UNITS POSITIVE The following result was obtained withthe [employer] QUANTA Lite M2 EP(MIT3) ROOPA.Results obtained with other manufacturers'assay methods may not be used interchangeably.The magnitude of the reported IgG levelscannot be correlated to an endpoint titer. ID Date Data Source [id number] 12/04/2019 07:32:43 PM EDT [facility] [place] [facility] [place] Name Value Range Interpretation Code Description Data Debra rce(s) Supporting Document(s) HEMOGLOBIN A1C @ 7.2 % (4.0-6.0) H [facility] [place] Performed using Siemens Cornell immunoassa y.Care must be taken when interpreting [id number] in patients with a hemoglobin variantor decreased erythrocyte lifespan. Values 5.7 - 6.4% suggest prediabetes.Values >=6.5% are diagnostic for diabetes.REFERENCE: DIABETES CARE 2018: 41(S13-S27).PERFORMED AT [address] [place] [address] EST AVERAGE GLUCOSE 160 mg/dL [facility] [place] ID Date Data Source [id number] 12/04/2019 07:24:02 PM EDT [facility] [place] Name Value Range Interpretation Code Description Data Debra rce(s) Supporting Document(s) HEPATITIS B S AG @ (NEG) [facility] [place] ID Date Data Source [id number] 12/04/2019 07:24:02 PM EDT [facility] [place] [facility] [place] Name Value Range Interpretation Code Description Data Debra rce(s) Supporting Document(s) HEP B CORE AB TOTAL @ (NEG) [facility] [place] [facility] [facility] [place] ID Date Data Source [id number] 12/04/2019 07:24:02 PM EDT [facility] [place] [facility] [place] Name Value Range Interpretation Code Description Data Debra rce(s) Supporting Document(s) HEPATITIS C AB @ (NEG) [facility] [place] [facility] [place] NOT INFECT ED WITH HCV, UNLESS RECENTINFECTION IS SUSPECTED OR OTHER EVIDENCEEXISTS TO INDICATE HCV INFECTION. ID Date Data Source [id number] 12/04/2019 06:40:40 PM EDT [facility] [place] [facility] Name Value Range Interpretation Code Description Data Debra rce(s) Supporting Document(s) CERULOPLASMIN @ 26.2 mg/dL (20-60) [facility] [place] [facility] ID Date Data Source [id number] 12/04/2019 06:40:40 PM EDT [facility] [place] [facility] Name Value Range Interpretation Code Description Data Debra rce(s) Supporting Document(s) A 1 ANTITRYPSIN @ 245.0 mg/dL (90-200) H [facility] [place] [facility] ID Date Data Source [id number] 12/04/2019 04:42:37 PM EDT [facility] [place] [facility] Name Value Range Interpretation Code Description Data Debra rce(s) Supporting Document(s) TOTAL PROTEIN 6.0 g/dL (6.4-8.2) L [facility] [place] [facility] ID Data Source [id number] 12/04/2019 04:42:37 PM EDT [facility] [place] [facility] Name Value Range Interpretation Code Description Data Debra rce(s) Supporting Document(s) LDH 196 U/L (84-246) [facility] [place] [facility] ID Data Source [id number] 12/04/2019 04:42:37 PM EDT [facility] [place] [facility] Name Value Range Interpretation Code Description Data Debra rce(s) Supporting Document(s) ALBUMIN 2.3 g/dL (3.2-4.5) L [facility] [place] [facility] ID Date Data Source [id number] 12/04/2019 04:42:37 PM EDT [facility] [place] [facility] Name Value Range Interpretation Code Description Data Debra rce(s) Supporting Document(s) GLUCOSE 164 mg/dL (70-99) H [facility] [place] [facility] ID Date Data Source [id number] 12/04/2019 04:15:49 PM EDT [facility] [place] [facility] Name Value Range Interpretation Code Description Data Debra rce(s) Supporting Document(s) WBC 8.3 10*3/uL (4.1-11.0) [facility] [place] [facility] [place] RBC 4.06 10*6/uL (4.60-6.10) L [facility] [place] [facility] HGB 13.1 g/dL (13.5-18.0) L [facility] [place] [facility] [place] HCT 37.8 % (41.0-53.0) L [facility] [place] [facility] MCV 93.1 fL (80.0-95.0) [facility] [place] [facility] [place] Trevizo MCH 32.2 pg (27.0-32.0) H [facility] [place] [facility] [place] MCHC 34.6 g/dL (32.0-36.0) [facility] [place] [facility] [place] RDW 14.6 % (10.5-14.5) H [facility] [place] Y PLT 125 10*3/uL (150-450) L [facility] [place] Trevizo MPV 8.4 fL (7.1-10.7) [facility] [place] ID Date Data Source [id number] 12/04/2019 05:56:00 PM EDT [facility] DATE OF EXAM: 12/04/2019ULTRASOUND-GUIDE D PARACENTESIS HISTORY:Massive ascites. CONSENT: Informed consent was obtained and the described risks included bleeding, infection, and bowel damage. PROCEDURE: The abdomen was examined indicating a massive amount of fluid. A site in the right lower quadrant was localized using ultrasound. 1% lidocaine was injected for local anesthesia. Under ultrasound guidance a 5 Bahraini Yueh catheter was inserted into the peritoneal cavity. 4000 ml of clear yellow fluid was removed, without evidence of complication. Fluid samples sent for diagnostic testing. Patient tolerated procedure well. Large volume of fluid remains. IMPRESSION: Ultrasound-guided paracentesis, as described above. Procedure performed by Rhina Huerta NP. Professional interpretation performed at [facility] .End of diagnostic report for accession: [id number] Interpreted: Mikey Craig MDTranscribed: 12/04/2019 03:31 PMSigned: 12/04/2019 05:56 PM Mikey Craig MD [facility] ACC # [id number] BILL # [id number] Name Value Range Interpretation Code Description Data Debra rce(s) Supporting Document(s) ID Date Data Source [id number] 12/09/2019 08:21:42 AM EDT [facility] [place] [facility] SPECIMEN DESCRIPTION PERITONEAL F LUIDSPECIAL REQUESTS NONECULTURE RESULTS NO ANAEROBES ISOLATED AFTER 5 DAYSREPORT STATUS FINAL 12/09/2019 Name Value Range Interpretation Code Description Data Debra rce(s) Supporting Document(s) ID Date Data Source [id number] 12/09/2019 08:21:22 AM EDT [facility] [place] [facility] SPECIMEN DESCRIPTION PERITONEAL F LUIDSPECIAL REQUESTS NONEGRAM STAIN RARE (<1/LPF) WHITE BLOOD CELLS NO BACTERIACULTURE RESULTS NO GROWTH 5 DAYSREPORT STATUS FINAL 12/09/2019 Name Value Range Interpretation Code Description Data Debra rce(s) Supporting Document(s) ID Date Data Source [id number] 12/07/2019 08:01:35 PM EDT [facility] [place] [facility] Name Value Range Interpretation Code Description Data Debra rce(s) Supporting Document(s) COLOR [facility] [place] [facility] APPEAR [facility] [place] [facility] RBC (0) [facility] [place] [facility] TOTAL NUCLEATED CNT 160 U/L (0-300) [facility] NEUT % 2 % (0-25) [facility] [place] [facility] LYMPH % 79 % [facility] [place] [facility] MONO/HISTIO % 11 % [facility] [place] [facility] MESOTHELIAL CELLS % 8 % [facility] COMMENT [facility] [place] [facility] DIFFERENTIAL PERFORMED ON CYTOCENTRIFUGE D SMEAR PATHOLOGIST COMM [facility] [place] [facility] MAINLY LYMPHOCYTES, WITH HISTIOCYTES AND MESOTHELIAL CELLS.REVIEWED BY MD FLAIVA 12/07/19 ID Date Data Source [id number] 12/04/2019 04:10:06 PM EDT [facility] [place] [facility] Name Value Range Interpretation Code Description Data Debra rce(s) Supporting Document(s) FLUID ALBUMIN 0.8 g/dL Lab [facility] ID Date Data Source [id number] 12/04/2019 03:32:27 PM EDT [facility] Name Value Range Interpretation Code Description Data Debra rce(s) Supporting Document(s) FLUID LDH 62 U/L [facility] FOR PLEURAL AND PERICARDIAL FLUID:<60% O F SERUM LD REPRESENTS TRANSUDATE>60% OF SERUM LD REPRESENTS EXUDATE ID Date Data Source [id number] 12/04/2019 03:32:27 PM EDT [facility] Name Value Range Interpretation Code Description Data Debra rce(s) Supporting Document(s) FLUID TOTAL PROTEIN <2.0 g/dL [facility] [place] FOR PLEURAL AND PERCARDIAL FLUID: <50% O F SERUM PROTEIN INDICATES TRANSUDATE >50% OF SERUM PROTEIN INDICATES EXUDATE ID Date Data Source [id number] 12/04/2019 03:32:27 PM EDT [facility] [place] Name Value Range Interpretation Code Description Data Debra rce(s) Supporting Document(s) FLUID GLUCOSE 154 mg/dL [facility] [place] ID Date Data Source [id number] 12/04/2019 03:07:44 PM EDT [facility] [place] Name Value Range Interpretation Code Description Data Debra rce(s) Supporting Document(s) FLUID SOURCE [facility] [facility] [place] ID Date Data Source [id number] 12/04/2019 11:47:00 AM EDT [facility] DATE OF EXAM: 12/04/2019CT Abdomen Pelvi s W Contrast INDICATION: ABDOMINAL DISTENTIONCOMPARISON: noneIV CONTRAST: 100 ml Omnipaque 300Oral contrast: None One or more of the following dose reduction techniques were utilized in effectively lowering the radiation dose for this examination: Automated Exposure Control, Adjustment of the mA and/or kV according to patient size, or Iterative reconstruction. TECHNIQUE: Helical scans of the abdomen and pelvis. Coronal and sagittal reformatted images. CT ABDOMEN AND PELVIS: FINDINGS: ABDOMEN: Lung bases: Linear atelectasis in the right lower lobe.Liver: Shrunken, cirrhotic liver. No enhancing mass is seen. Significant ascites that is amenable to drainage.Gallbladder: Cholecystectomy. Common bile duct is not dilated. No intrahepatic ductal dilatation.Pancreas: No pancreatic inflammation or ductal dilatation. Mild fatty replacement.Spleen: Splenomegaly. Spleen measures 14.4 cm craniocaudal, 6.2 cm AP, 8 cm transverse.Adrenals: No adrenal nodules or hyperplasia.Kidneys: Numerous bilateral simple renal cysts. No renal calculi.Vascular: No abdominal aortic aneurysm. 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 Portal vein is well opacified and patent.Lymph nodes: No significant abdominal or retroperitoneal lymphadenopathy is identified. Gastrointestinal: Evaluation of the gastrointestinal tract demonstrates no evidence of bowel obstruction, pneumoperitoneum, or acute inflammatory process. There is no abdominal or pelvic ascites. PELVIS: Bladder: The urinary bladder appears unremarkable. Musculoskeletal: The visualized osseous structures are intact. IMPRESSION: Shrunken cirrhotic liver. Significant ascites. Splenomegaly and portal hypertension. Professional interpretation performed at [facility] .End of diagnostic report for accession: [id number] Interpreted: Gaby Mas MDTranscribed: 12/04/2019 11:39 AMSigned: 12/04/2019 11:47 AM Gaby Mas MD [facility] ACC # [id number] BILL # [id number] Name Value Range Interpretation Code Description Data Debra rce(s) Supporting Document(s) ID Date Data Source [id number] 12/04/2019 10:53:00 AM EDT [facility] DATE OF EXAM: 12/04/2019Chest 1V Portabl e INDICATION: CHEST PAIN COMPARISON: None TECHNIQUE: AP portable semiupright image of the chest was obtained. FINDINGS: Hypoinflated lungs, elevated right hemidiaphragm. Mild pulmonary vascular congestion but no airspace consolidation. There is no effusion. The cardiac and mediastinal contours appear normal. IMPRESSION: Mild pulmonary vascular congestion, which may be exaggerated due to extent of hypoinflation. No airspace consolidation or subsegmental, or subpleural patchy airspace opacities. Professional interpretation performed at [facility] .End of diagnostic report for accession: [id number] Interpreted: Gaby Mas MDTranscribed: 12/04/2019 10:52 AMSigned: 12/04/2019 10:53 AM Gaby Mas MD ------ [facility] ACC # [id number] BILL # [id number] Name Value Range Interpretation Code Description Data Debra rce(s) Supporting Document(s) ID Date Data Source [id number] 12/04/2019 10:32:57 AM EDT [facility] Name Value Range Interpretation Code Description Data Debra rce(s) Supporting Document(s) COLOR [facility] PERFORMED AT [address] [place] [address] APPEARANCE [facility] SPEC GRAV URINE 1.009 (1.003-1.030) [facility] PH URINE 6.0 (5.0-7.5) [facility] LEUK ESTERASE (NEG) [facility] CRITERIA FOR CULTURE NOT MET.CULTURE CAN BE ADDED WITHIN 36 HOURS OFCOLLECTION. NITRITE URINE (NEG) [facility] PROTEIN URINE (NEG) [facility] GLUCOSE URINE (NEG) [facility] KETONE URINE (NEG) [facility] [place] UROBILINOGEN 1.0 mg/dL (0-1.0) [facility] BILIRUBIN URINE (NEG) [facility] BLOOD/HGB URINE (NEG) [facility] ID Date Data Source [id number] 12/04/2019 09:58:43 AM EDT [facility] Name Value Range Interpretation Code Description Data Debra rce(s) Supporting Document(s) MUSE EKG PDF encoded [facility] FXHKDk5hHpXMKxCkv7BhLfAhESZpMW1bbdv0S2B5tXBqZ6HiiPHes8uuA0OxD1LnJJIwWNZNQC5OlLYo jb2 [file] mid level provider+Srm6336M/yWtwKnrNpgevxNCoiJdgtwXCyCY4JL2TYCwgSWclNhM3qUdfYlhCfURTj8Io/oXguhAc WatdiGukmxI08+W3287pqfqdbFeDOl3/ryucCovSyjL5BKzuhr5Vm9Mv21xj8tHIkUPaSXHkkdlEK8kV C68BVupljKvlbN507jK1iwMO3QKZA/1JLG3nz5NBNw OJm/UYkDsaCxbxG1422E3UdteuvFlkdJcovNouwFiuMTHnd0BD24ZpQPueQ0x3Dsvl2AwdOH75NoVwaU myA6vMoN3iEBLuQO43QM1r2p+DS9kwMKjD7AptxNkhfqP2U1e/ZPO88+J3852izezfvM28KgqVxJebLq hRSR1CT3Q3HtNQOGuYwBccIiDBAPEUMSBUFnTIQv/k pwhapsncoeahmupkauhiyecetrocvrykgberdcjehoaKFwKIuVuBFRTMOBhrSXWVieLofkmxjaLF8rtr [file] biAKMDAwMDAwMDUyMyAwMDAwMCBuIAowMDAwMDAwNj CoOMPpZSTbCX7wWeUcIZOrYKD5QRYpZICyNKCqttYJNSUyIFTpSXu6SOKzGHAmCYFaETqtOVOpCIUdRX Q5BHMhLNOmBX9sIrHwUKReZHOcEIXbRYCoDSBvcaOPVYDmFACiJRZ5HJZcWAZsANAxVDviHHLmEOWoDv i5XUPmAJJhUA5qFsEjBTLgMAP9XXOiBWMyNLFnhrHO FZWeBVY6CRH0OIUqNYNyJNNvVMofXRUwPVVyHpC6YQObFBFoVV0bYwRvOMCoLFT9SeIrUUGiYQMctpPU QDYjHPAaTAA9SxXfSLTzIMMmWSvlSQGaBYRsUPOaNSI5RSS1XVLrKgEzQWoyWPWNILfXZ7OmuwXzZnSF Q2szKh4tJaKtEXWKD1Pgc7QyTPZqOSSKLk8+WjJ9RFE3hORuKrh9DFJ0MFxaVDJGPo== ID Date Data Source [id number] 12/04/2019 10:41:15 AM EDT [facility] Name Value Range Interpretation Code Description Data Debra rce(s) Supporting Document(s) TOTAL PROTEIN 7.4 g/dL (6.4-8.2) [facility] ALBUMIN 2.8 g/dL (3.2-4.5) L [facility] GLOBULIN 4.6 g/dL (2.7-4.3) H [facility] ALB/GLOB RATIO 0.6 RATIO [facility] BILIRUBIN,TOTAL 2.5 mg/dL (0.0-1.0) H [facility] PLEASE NOTE:Total bilirubin results may be falselyelevated in patients taking Eltrombopag. BILIRUBIN,CONJUGATED 1.0 mg/dL (0.0-0.3) H [facility] BILIRUBIN,UNCONJ. 1.5 mg/dL (0.0-0.7) H [facility] ALKALINE PHOSPHATASE 103 U/L (45-117) [facility] AST (SGOT) 45 U/L (11-39) H [facility] ALT (SGPT) 23 U/L (12-78) [facility] ID Date Data Source [id number] 12/04/2019 10:41:15 AM EDT [facility] Name Value Range Interpretation Code Description Data Debra rce(s) Supporting Document(s) LIPASE 91 U/L (65-230) [facility] ID Date Data Source [id number] 12/04/2019 10:41:15 AM EDT [facility] Name Value Range Interpretation Code Description Data Debra rce(s) Supporting Document(s) TROPONIN I <0.05 ng/mL (<0.05) [facility] [place] Less than 0.05: Myocardial injury unlike lyGreater than or equal to 0.05: Highly suggestive of myocardial injuryCorrelation with rise and/or fall ofserial troponins, clinical symptomsand ECG changes is necessary. ID Date Data Source [id number] 12/04/2019 10:41:15 AM EDT [facility] Name Value Range Interpretation Code Description Data Debra rce(s) Supporting Document(s) SODIUM 137 mmol/L (136-145) [facility] POTASSIUM 3.0 mmol/L (3.6-5.2) L [facility] CHLORIDE 98 mmol/L (100-108) L [facility] CO2 32 mmol/L (22-31) H [facility] ANION GAP 7 mmol/L (7-16) [facility] UREA NITROGEN 9 mg/dL (7-24) [facility] CREATININE 0.77 mg/dL (0.80-1.30) L [facility] BUN/CREAT RATIO 11.7 RATIO (10.0-20.0) [facility] GLUCOSE 142 mg/dL (70-99) H [facility] CALCIUM 8.9 mg/dL (8.4-10.2) [facility] GFR >60 ml/min/1.73m2 (>59) [facility] GFR ( AMER) >60 ml/min/1.73m2 (>59) [facility] [place] GFR INTERPRETATION [facility] [place] --NORMAL KIDNEY FUNCTION OR MILD DISEASE - GFR >OR= 60CHRONIC KIDNEY DISEASE - GFR 15 - 59RENAL FAILURE - GFR <15 Est. GFR calculation based on the MDRDstudy equation, which assumes a steadystate for creatinine. Est. GFR should notbe used for medication dosing. ID Date Data Source [id number] 12/04/2019 10:41:15 AM EDT [facility] Name Value Range Interpretation Code Description Data Debra rce(s) Supporting Document(s) NT PRO BNP 296 pg/mL (0-125) H [facility] [place] ID Date Data Source [id number] 12/04/2019 10:34:37 AM EDT [facility] Name Value Range Interpretation Code Description Data Debra rce(s) Supporting Document(s) APTT 28.5 s (22.0-34.3) [facility] [place] [facility] [place] PERFORMED AT [address] [facility] [address] ID Date Data Source [id number] 12/04/2019 10:34:37 AM EDT [facility] Name Value Range Interpretation Code Description Data Debra rce(s) Supporting Document(s) PT 13.7 s (9.2-11.9) H [facility] [place] [facility] [place] PERFORMED AT [address] [facility] [address] INR 1.33 [facility] [place] SUGGESTED THERAPEUTIC RANGES USING INR F ORSTABILIZED ANTICOAGULATED PATIENTS:STANDARD DOSE THERAPY INR 2.0-3.0 DVT, PE, PREVENT DVT OR EMBOLISMHIGH DOSE THERAPY INR 2.5-3.5 PREVENT EMBOLISM FROM MECHANICAL HEART VALVE ID Date Data Source [id number] 12/04/2019 10:28:33 AM EDT [facility] Name Value Range Interpretation Code Description Data Debra rce(s) Supporting Document(s) AMMONIA 18 umol/L (11-32) [facility] [place] ID Date Data Source [id number] 12/04/2019 10:21:36 AM EDT [facility] Name Value Range Interpretation Code Description Data Debra rce(s) Supporting Document(s) WBC 11.0 10*3/uL (4.1-11.0) [facility] RBC 4.50 10*6/uL (4.60-6.10) L [facility] HGB 14.5 g/dL (13.5-18.0) [facility] HCT 42.4 % (41.0-53.0) [facility] MCV 94.3 fL (80.0-95.0) [facility] MCH 32.3 pg (27.0-32.0) H [facility] MCHC 34.2 g/dL (32.0-36.0) [facility] RDW 14.5 % (10.5-14.5) [facility] PLT 191 10*3/uL (150-450) [facility] MPV 8.8 fL (7.1-10.7) [facility] NEUT % 76.2 % (35.0-75.0) H [facility] LYMPH % 14.4 % (16.0-52.0) L [facility] MONO % 8.3 % (0.0-8.0) H [facility] EOS % 0.4 % (0.0-5.0) [facility] BASO % 0.7 % (0.0-4.0) [facility] NEUT # 8.4 10*3/uL (1.8-7.7) H [facility] LYMPH # 1.6 10*3/uL (1.2-4.8) [facility] MONO # 0.9 10*3/uL (0.0-0.8) H [facility] Eosinophils [#/volume] in Blood by Automated count 0.0 10*3/uL (0.0-0 .5) [facility] BASO # 0.1 10*3/uL (0.0-0.2) [facility] ID Date Data Source [id number] 12/04/2019 10:17:54 AM EDT [facility] Name Value Range Interpretation Code Description Data Debra rce(s) Supporting Document(s) HOLD TUBE PINK Lab [employer] [place] ID Date Data Source [id number] 12/07/2019 06:03:20 PM EDT [facility] LAB[facility] [address] [place], [place] [address]Pgl# MISCELLANEOUS CYTOLOGY REPORTAccession #: [id number] Specimen(s): A: Peritoneal FluidClinical Diagnosis and History: Gross DescriptionPeritoneal Fluid: Received in 2 tubes TV 60 cc hazy yellow fluid. Final DiagnosisSpecimen AdequacySatisfactoryFinal DiagnosisNEGATIVE FOR MALIGNANCY Mesothelial cells and histiocytes..Processed and screened at Laboratory [facility],Cytology, [address] [place] [address], [facility].As applicable, positive and negative controls for all immunohistochemicaland/or special stains were reviewed and considered appropriate. Reported: 12/07/2019 18:02Electronically Signed Out By Lelo Jackson M.D.Pathology AssociatesCytotechnologist: Anahi DECKER([facility] [place] [place] ICD Code: R18.8 CPT Code: A: 93602V Name Value Range Interpretation Code Description Data Debra rce(s) Supporting Document(s) ID Date Data Source [id number] 12/02/2019 12:00:[address] [facility] Ktaja Mccall Np Patient Name: MIKEY TAPIA [address] [facility] [address] [place] [address] Date of Exam: 12/02/2019PH#: Fax: [phone] EXAM: CT ABDOMEN & PELVIS WITH CONTRASTCLINICAL INFORMATION: Abdominal pain.Low dose [address] scanning of the abdomen and pelvis was orderedafter the administration of oral bowel preparatory contrast and intravenouscontrast, however, the patient refused both oral and intravenous contrastadministration.The lack of contrast significantly decreases the sensitivity of the exam.There is a band-like opacity in the right lung base, likely subsegmentalatelectatic and/or fibrotic change. There are no pleural or pericardialeffusions.The liver is small and with a nodular surface. The xmeomdc-en-wunj lobe ofthe liver ratio is abnormal. There are surgical clips in the gallbladderfossa from previous cholecystectomy. There is splenomegaly with themaximal splenic dimension 16 cm. There is marked ascites. Withoutintraven ous contrast administration, I cannot effectively evaluate themesentery and the omentum for possible seating and/or caking. There is nointestinal obstruction. The pancreas is atrophic and fatty infiltrated.The adrenal glands are within normal limits. The right kidney is withinnormal limits although seen in a limited fashion. In the inferior pole ofthe left kidney, there is a partially exophytic 2.4 cm sized low densitystructure having water density HU readings. The abdominal aorta is withinnormal limits. There is no evidence of paraaortic adenopathy.CT PELVIS:There is corpora amylacea. There is a large amount of free pelvic fluid.There is no evidence of pelvic adenopathy.Bone window technique throughout the examination shows spinal degenerativechanges along with hip and sacroiliac joint degenerative changes.IMPRESSION:1. Exam limitations as described above.2. Band-like opacity seen in the right lung base, likely fibrotic and/orsubsegmental atelectatic changes, however, since there are no priors forcomparison, I would suggest followup with contrast enhanced CT examinationof the chest.3. Marked ascites.4. Abnormal liver, highly suspicious for cirrhosis.5. Splenomegaly.6. Left renal cyst.7. Other findings as described above.Accredited by the [employer] in [place].HOA Vizcaino/Vik ibarra for referring MIKEY TAPIA to our office. Electronically Signed - SINAI LOWERY DO 12/02/19 16:35 Name Value Range Interpretation Code Description Data Debra rce(s) Supporting Document(s) ID Date Data Source [id number] 12/01/2019 11:50:00 AM EDT [facility] ([facility]) Name Value Range Interpretation Code Description Data Debra rce(s) Supporting Document(s) Hemoglobin A1c/Hemoglobin.total in Blood 7.6 Abnormal (applies to non-numeric results) Hgb A1c [facility] ([facility]) ID Date Data Source [id number] 12/01/2019 11:21:00 AM EDT [facility] Name Value Range Interpretation Code Description Data Debra rce(s) Supporting Document(s) Hemoglobin A1c/Hemoglobin.total in Blood 7.6 [facility] ([facility]) ID Date Data Source [id number] 10/08/2019 12:00:00 AM EDT [facility] ([facility]) Name Value Range Interpretation Code Description Data Debra rce(s) Supporting Document(s) Hemoglobin A1c/Hemoglobin.total in Blood 11.4 Abnormal (applies to non-numeric results) Hgb A1c [facility] ([facility]) ID Date Data Source [id number] 10/07/2019 05:09:00 PM EDT [facility] ([facility]) Name Value Range Interpretation Code Description Data Debra rce(s) Supporting Document(s) Amphetamines: negative Amphetamines: [facility]AN ([facility]) THC negative Thc E[facility] ([facility]) Barbiturates: negative Barbiturates: [facility] ([facility]) Cocaine: negative Cocaine: [facility] ([facility]) Opiates: negative Opiates: [facility] ([facility]) PCP negative Pcp [facility] ([facility]) Benzodiazepines: negative Benzodiazepines: AT JARRET ([facility]) MTD negative Mtd [facility] ([facility]) Methamphetamine negative Methamphetamine ATHE NA ([facility]) OXY positive Oxy [facility] ([facility]) ID Date Data Source [id number] 10/07/2019 05:09:00 PM EDT [facility] ([facility]) Name Value Range Interpretation Code Description Data Debra rce(s) Supporting Document(s) Amphetamines: negative Amphetamines: [facility] ([facility]) Cocaine: negative Cocaine: [facility] ([facility]) THC negative Thc [facility] ([facility]) Opiates: negative Opiates: [facility] ([facility]) Barbiturates: negative Barbiturates: ETHAN ([facility]) Benzodiazepines: negative Benzodiazepines: AT JARRET ([facility]) PCP negative Pcp [facility] ([facility] Methamphetamine negative Methamphetamine ATHE NA ([facility]) MTD negative Mtd [facility] ([facility]) OXY positive Oxy [facility] ([facility]) ID Date Data Source [id number] 10/07/2019 05:09:00 PM EDT [facility] ([facility]) Name Value Range Interpretation Code Description Data Debra rce(s) Supporting Document(s) Cocaine: negative Cocaine: [facility] ([facility]) Amphetamines: negative Amphetamines: ETHAN ([facility]) THC negative Thc [facility] ([facility]) Barbiturates: negative Barbiturates: ETHAN ([facility]) Opiates: negative Opiates: [facility] ([facility]) Benzodiazepines: negative Benzodiazepines: AT JARRET ([facility]) PCP negative Pcp [facility] ([facility]) OXY positive Oxy [facility] ([facility]) MTD negative Mtd [facility] ([facility]) Methamphetamine negative Methamphetamine ATHE NA ([facility]) ID Date Data Source [id number] 10/07/2019 05:09:00 PM EDT [facility] ([facility]) Name Value Range Interpretation Code Description Data Debra rce(s) Supporting Document(s) Amphetamines: negative Amphetamines: ETH[facility] ([facility]) Opiates: negative Opiates: [facility] ([facility]) Cocaine: negative Cocaine: [facility] ([facility]) THC negative Thc [facility] ([facility]) Barbiturates: negative Barbiturates: ETHAN ([facility]) Benzodiazepines: negative Benzodiazepines: AT JARRET ([facility]) Methamphetamine negative Methamphetamine ATHE NA ([facility]) PCP negative Pcp [facility] ([facility]) OXY positive Oxy [facility] ([facility]) MTD negative Mtd [facility] ([facility]) ID Date Data Source [id number] 10/07/2019 05:09:00 PM EDT [facility] ([facility]) Name Value Range Interpretation Code Description Data Debra rce(s) Supporting Document(s) Amphetamines: negative Amphetamines: ETHAN ([facility]) THC negative Thc [facility] ([facility]) Opiates: negative Opiates: [facility] ([facility]) Barbiturates: negative Barbiturates: ETHAN ([facility]) Cocaine: negative Cocaine: [facility] ([facility]) Benzodiazepines: negative Benzodiazepines: AT JARRET ([facility]) PCP negative Pcp [facility]AN ([facility]) OXY positive Oxy ETHAN ([facility]) MTD negative Mtd [facility] ([facility]) Methamphetamine negative Methamphetamine ATHE NA ([facility]) ID Date Data Source [id number] 10/07/2019 05:09:00 PM EDT [facility] ([facility]) Name Value Range Interpretation Code Description Data Debra rce(s) Supporting Document(s) Opiates: negative Opiates: [facility] ([facility]) Amphetamines: negative Amphetamines: ETHAN ([facility]) THC negative Thc [facility] ([facility]) Cocaine: negative Cocaine: [facility] ([facility]) Barbiturates: negative Barbiturates: ETHAN ([facility]) PCP negative Pcp [facility] ([facility]) Benzodiazepines: negative Benzodiazepines: AT JARRET ([facility]) Methamphetamine negative Methamphetamine ATHE NA ([facility]) OXY positive Oxy [facility] ([facility]) MTD negative Mtd [facility] ([facility]) ID Date Data Source [id number] 10/07/2019 05:09:00 PM EDT [facility] ([facility]) Name Value Range Interpretation Code Description Data Debra rce(s) Supporting Document(s) Amphetamines: negative Amphetamines: ETHAN ([facility]) Opiates: negative Opiates: [facility] ([facility]) THC negative Thc [facility] ([facility]) Cocaine: negative Cocaine: [facility] ([facility]) Barbiturates: negative Barbiturates: ETHAN ([facility]) Methamphetamine negative Methamphetamine ATHE NA ([facility]) Benzodiazepines: negative Benzodiazepines: AT JARRET ([facility]) MTD negative Mtd [facility] ([facility]) PCP negative Pcp [facility] ([facility]) OXY positive Oxy [facility] ([facility]) ID Date Data Source [id number] 10/07/2019 05:09:00 PM EDT [facility] ([facility]) Name Value Range Interpretation Code Description Data Debra rce(s) Supporting Document(s) Amphetamines: negative Amphetamines: ETHAN ([facility]) Cocaine: negative Cocaine: ETHAN ([facility]) Benzodiazepines: negative Benzodiazepines: AT JARRET ([facility]) THC negative Thc ETHAN ([facility]) Opiates: negative Opiates: ETHAN ([facility]) Barbiturates: negative Barbiturates: ETHAN ([facility]) OXY positive Oxy ETHAN ([facility]) Methamphetamine negative Methamphetamine ATHE NA ([facility]) MTD negative Mtd ETHAN ([facility]) PCP negative Pcp ETHAN ([facility]) ID Date Data Source [id number] 10/07/2019 05:09:00 PM EDT ETHAN ([facility]) Name Value Range Interpretation Code Description Data Debra rce(s) Supporting Document(s) THC negative Thc ETHAN ([facility]) Amphetamines: negative Amphetamines: ETHAN ([facility]) Cocaine: negative Cocaine: ETHAN ([facility]) Benzodiazepines: negative Benzodiazepines: AT JARRET ([facility]) Opiates: negative Opiates: EHTAN ([facility]) Barbiturates: negative Barbiturates: ETHAN ([facility]) PCP negative Pcp ETHAN ([facility]) Methamphetamine negative Methamphetamine ATHE NA ([facility]) MTD negative Mtd ETHAN ([facility] OXY positive Oxy ETHAN ([facility]) ID Date Data Source [id number] 10/07/2019 05:09:00 PM EDT ETHAN ([facility]) Name Value Range Interpretation Code Description Data Debra rce(s) Supporting Document(s) Cocaine: negative Cocaine: ETHAN ([facility]) Amphetamines: negative Amphetamines: ETHAN ([facility]) THC negative Thc ETHAN ([facility]) Barbiturates: negative Barbiturates: ETHAN ([facility]) Opiates: negative Opiates: ETHAN ([facility]) PCP negative Pcp ETHAN ([facility]) Benzodiazepines: negative Benzodiazepines: AT JARRET ([facility]) MTD negative Mtd ETHAN ([facility]) Methamphetamine negative Methamphetamine ATHE NA ([facility]) OXY positive Oxy ETHAN ([facility]) ID Date Data Source [id number] 10/07/2019 12:00:00 AM EDT [place] ([facility]) Name Value Range Interpretation Code Description Data Debra rce(s) Supporting Document(s) Buprenorphine [Presence] in Urine by Confirmatory method <1 >=1 Buprenorphine Ur Ql [facility] ([facility]) Ethyl sulfate [Mass/volume] in Urine by Confirmatory method <200 >=200 Ethyl Sulfate Ur [facility] ([facility]) Ethyl glucuronide [Mass/volume] in Urine by Confirmatory method <50 0 >=500 Ethyl Glucuronide Ur [facility] ([facility]) alcohol metabolites ur ql cfm <200 >=200 Alcoho l Metabolites Ur Ql [facility] ([facility]) Tapentadol [Presence] in Urine by Confirmatory method <100 >=100 Tapentadol Ur Ql [facility] ([facility]) Benzodiazepines [Presence] in Urine by Confirmatory method <50 >=50 Benzodiaz Ur Ql [facility] ([facility]) Cocaine [Presence] in Urine by Confirmatory method <50 >=50 Bze Ur Ql [facility] ([facility]) Amphetamines [Presence] in Urine by Confirmatory method <0 >=0 Amphetamines Ur Ql [facility] ([facility]) gabapentinpregabalin ur ql cfm <5 >=5 Gabap entinpregabalin Ur Ql [facility] ([facility]) Opiates [Presence] in Urine by Confirmatory method >=100 >=1 00 Opiates Ur Ql [facility] ([facility]) Oxycodone [Mass/volume] in Urine by Confirmatory method 568 NG/mL >=100 Oxycodone Ur [facility] ([facility]) Oxymorphone [Mass/volume] in Urine by Confirmatory method 129 NG/mL >=100 Oxymorphone Ur [facility] ([facility]) Noroxycodone [Mass/volume] in Urine by Confirmatory method 401 NG/m L >=100 Noroxycodone Ur [facility] ([facility]) Methadone [Presence] in Urine by Confirmatory method <200 > =200 Methadone Ur Ql [facility] ([facility]) Fentanyl+Norfentanyl [Presence] in Urine by Confirmatory method <5 >=5 Fentanyl+norfentanyl Ur Ql [facility] ([facility]) Meperidine [Presence] in Urine by Confirmatory method <100 >=100 Meperidine Ur Ql [facility] ([facility]) 6-Monoacetylmorphine (6-ERIKA) [Presence] in Urine by Confirma tory method <10 >=10 6Mam Ur Ql [facility] ([facility]) pH of Urine 4.5 - 9.0 normal pH Ur [place] ([facility]) Carisoprodol+Meprobamate [Presence] in Urine by Screen method <200 >=200 Carisoprodol+meprob Ur Ql Scn [place] ([facility]) Cotinine [Presence] in Urine by Confirmatory method <125 >= 125 Cotinine Ur Ql [facility] ([facility]) Tramadol [Presence] in Urine by Confirmatory method <100 >= 100 Tramadol Ur Ql [facility] ([facility]) Creatinine [Mass/volume] in Urine 34.7 mg/dL 20 - 370 [facility] ID Date Data Source [id number] 10/07/2019 12:00:00 AM EDT [place] ([facility]) Name Value Range Interpretation Code Description Data Debra rce(s) Supporting Document(s) ID Date Data Source [id number] 10/07/2019 12:00:00 AM EDT ETHAN ([facility]) Name Value Range Interpretation Code Description Data Debra rce(s) Supporting Document(s) ID Date Data Source [id number] 10/07/2019 12:00:00 AM EDT ETHAN ([facility]) Name Value Range Interpretation Code Description Data Debra rce(s) Supporting Document(s) oxycodone ur CMP 1090 NG/mL >=100 Abnormal (applies to non -numeric results) Oxycodone Ur CMP ETHAN ([facility]) ID Date Data Source [id number] 10/07/2019 12:00:00 AM EDT ETHAN ([facility]) Name Value Range Interpretation Code Description Data Debra rce(s) Supporting Document(s) Buprenorphine [Presence] in Urine by Confirmatory method <1 >=1 Buprenorphine Ur Ql [facility] ([facility]) Ethyl sulfate [Mass/volume] in Urine by Confirmatory method <200 >=200 Ethyl Sulfate Ur [facility] ([facility]) alcohol metabolites ur ql cfm <200 >=200 Alcoho l Metabolites Ur Ql [facility] ([facility]) Ethyl glucuronide [Mass/volume] in Urine by Confirmatory method <50 0 >=500 Ethyl Glucuronide Ur [facility] ([facility]) Benzodiazepines [Presence] in Urine by Confirmatory method <50 >=50 Benzodiaz Ur Ql [facility] ([facility]) Tapentadol [Presence] in Urine by Confirmatory method <100 >=100 Tapentadol Ur Ql [facility] ([facility]) Amphetamines [Presence] in Urine by Confirmatory method <0 >=0 Amphetamines Ur Ql [facility] ([facility]) gabapentinpregabalin ur ql cfm <5 >=5 Gabap entinpregabalin Ur Ql [facility] ([facility]) Cocaine [Presence] in Urine by Confirmatory method <50 >=50 Bze Ur Ql [facility] ([facility]) Oxycodone [Mass/volume] in Urine by Confirmatory method 568 NG/mL >=100 Oxycodone Ur [facility] ([facility]) Oxymorphone [Mass/volume] in Urine by Confirmatory method 129 NG/mL >=100 Oxymorphone Ur [facility] ([facility]) Opiates [Presence] in Urine by Confirmatory method >=100 >=1 00 Opiates Ur Ql [facility] ([facility]) Methadone [Presence] in Urine by Confirmatory method <200 > =200 Methadone Ur Ql [facility] ([facility]) Noroxycodone [Mass/volume] in Urine by Confirmatory method 401 NG/m L >=100 Noroxycodone Ur [facility] ([facility]) 6-Monoacetylmorphine (6-ERIKA) [Presence] in Urine by Confirma tory method <10 >=10 6Mam Ur Ql [facility] ([facility]) Meperidine [Presence] in Urine by Confirmatory method <100 >=100 Meperidine Ur Ql [facility] ([facility]) Fentanyl+Norfentanyl [Presence] in Urine by Confirmatory method <5 >=5 Fentanyl+norfentanyl Ur Ql [facility] ([facility]) Tramadol [Presence] in Urine by Confirmatory method <100 >= 100 Tramadol Ur Ql [facility] ([facility]) Carisoprodol+Meprobamate [Presence] in Urine by Screen method <200 >=200 Carisoprodol+meprob Ur Ql Scn [place] ([facility]) Cotinine [Presence] in Urine by Confirmatory method <125 >= 125 Cotinine Ur Ql [facility] ([facility]) pH of Urine 4.5 - 9.0 normal pH Ur [place] ([facility]) Creatinine [Mass/volume] in Urine 34.7 mg/dL 20 - 370 normal Cr eat [facility] ([facility]) ID Date Data Source [id number] 10/07/2019 12:00:00 AM EDT ETHAN ([facility]) Name Value Range Interpretation Code Description Data Debra rce(s) Supporting Document(s) ID Date Data Source [id number] 10/07/2019 12:00:00 AM EDT ETHAN ([facility]) Name Value Range Interpretation Code Description Data Debra rce(s) Supporting Document(s) ID Date Data Source [id number] 10/07/2019 12:00:00 AM EDT ETHAN ([facility]) Name Value Range Interpretation Code Description Data Debra rce(s) Supporting Document(s) oxycodone ur CMP 1090 NG/mL >=100 Abnormal (applies to non -numeric results) Oxycodone Ur CMP ETHAN ([facility]) ID Date Data Source [id number] 10/07/2019 12:00:00 AM EDT ETHAN ([facility]) Name Value Range Interpretation Code Description Data Debra rce(s) Supporting Document(s) alcohol metabolites ur [facility] <200 >=200 Alcoho l Metabolites Ur Ql [facility] ([facility]) Buprenorphine [Presence] in Urine by Confirmatory method <1 >=1 Buprenorphine Ur Ql [facility] ([facility]) Ethyl glucuronide [Mass/volume] in Urine by Confirmatory method <50 0 >=500 Ethyl Glucuronide Ur [facility] ([facility]) Benzodiazepines [Presence] in Urine by Confirmatory method <50 >=50 Benzodiaz Ur [facility] ([facility]) Amphetamines [Presence] in Urine by Confirmatory method <0 >=0 Amphetamines Ur [facility] ([facility]) Tapentadol [Presence] in Urine by Confirmatory method <100 >=100 Tapentadol Ur Ql [facility] ([facility]) Ethyl sulfate [Mass/volume] in Urine by Confirmatory method <200 >=200 Ethyl Sulfate Ur [facility] ([facility]) Cocaine [Presence] in Urine by Confirmatory method <50 >=50 Bze Ur Ql [facility] ([facility]) Oxycodone [Mass/volume] in Urine by Confirmatory method 568 NG/mL >=100 Oxycodone Ur [facility] ([facility]) Oxymorphone [Mass/volume] in Urine by Confirmatory method 129 NG/mL >=100 Oxymorphone Ur [facility] ([facility]) Opiates [Presence] in Urine by Confirmatory method >=100 >=1 00 Opiates Ur Ql [facility] ([facility]) gabapentinpregabalin ur ql cf <5 >=5 Gabap entinpregabalin Ur Ql [facility] ([facility]) Meperidine [Presence] in Urine by Confirmatory method <100 >=100 Meperidine Ur Ql [facility] ([facility]) Methadone [Presence] in Urine by Confirmatory method <200 > =200 Methadone Ur Ql [facility] ([facility]) Noroxycodone [Mass/volume] in Urine by Confirmatory method 401 NG/m L >=100 Noroxycodone Ur [facility] ([facility]) 6-Monoacetylmorphine (6-ERIKA) [Presence] in Urine by Confirma tory method <10 >=10 6Mam Ur Ql [facility] ([facility]) Tramadol [Presence] in Urine by Confirmatory method <100 >= 100 Tramadol Ur Ql [facility] ([facility]) Cotinine [Presence] in Urine by Confirmatory method <125 >= 125 Cotinine Ur Ql [facility] ([facility]) Carisoprodol+Meprobamate [Presence] in Urine by Screen method <200 >=200 Carisoprodol+meprob Ur Ql [facility] ([facility]) Fentanyl+Norfentanyl [Presence] in Urine by Confirmatory method <5 >=5 Fentanyl+norfentanyl Ur Ql [facility] ([facility]) pH of Urine 4.5 - 9.0 normal pH Ur [place] ([facility]) Creatinine [Mass/volume] in Urine 34.7 mg/dL 20 - 370 normal Cr eat [facility] ([facility]) ID Date Data Source [id number] 10/07/2019 12:00:00 AM EDT [place] ([facility]) Name Value Range Interpretation Code Description Data Debra rce(s) Supporting Document(s) ID Date Data Source [id number] 10/07/2019 12:00:00 AM EDT ETHAN ([facility]) Name Value Range Interpretation Code Description Data Debra rce(s) Supporting Document(s) ID Date Data Source [id number] 10/07/2019 12:00:00 AM EDT ETHAN ([facility]) Name Value Range Interpretation Code Description Data Debra rce(s) Supporting Document(s) oxycodone ur CMP 1090 NG/mL >=100 Abnormal (applies to non -numeric results) Oxycodone Ur CMP ETHAN ([facility]) ID Date Data Source [id number] 10/07/2019 12:00:00 AM EDT ETHAN ([facility]) Name Value Range Interpretation Code Description Data Debra rce(s) Supporting Document(s) Buprenorphine [Presence] in Urine by Confirmatory method <1 >=1 Buprenorphine Ur Ql [facility] ([facility]) Ethyl sulfate [Mass/volume] in Urine by Confirmatory method <200 >=200 Ethyl Sulfate Ur [facility] ([facility]) Ethyl glucuronide [Mass/volume] in Urine by Confirmatory method <50 0 >=500 Ethyl Glucuronide Ur [facility] ([facility]) alcohol metabolites ur ql cfm <200 >=200 Alcoho l Metabolites Ur Ql [facility] ([facility]) Amphetamines [Presence] in Urine by Confirmatory method <0 >=0 Amphetamines Ur Ql [facility] ([facility]) Tapentadol [Presence] in Urine by Confirmatory method <100 >=100 Tapentadol Ur Ql [facility] ([facility]) Cocaine [Presence] in Urine by Confirmatory method <50 >=50 Bze Ur Ql [facility] ([facility]) gabapentinpregabalin ur ql cfm <5 >=5 Gabap entinpregabalin Ur Ql [facility] ([facility]) Benzodiazepines [Presence] in Urine by Confirmatory method <50 >=50 Benzodiaz Ur Ql [facility] ([facility]) Opiates [Presence] in Urine by Confirmatory method >=100 >=1 00 Opiates Ur Ql [facility] ([facility]) 6-Monoacetylmorphine (6-ERIKA) [Presence] in Urine by Confirma tory method <10 >=10 6Mam Ur Ql [facility] ([facility]) Oxymorphone [Mass/volume] in Urine by Confirmatory method 129 NG/mL >=100 Oxymorphone Ur [facility] ([facility]) Oxycodone [Mass/volume] in Urine by Confirmatory method 568 NG/mL >=100 Oxycodone Ur [facility] ([facility]) Noroxycodone [Mass/volume] in Urine by Confirmatory method 401 NG/m L >=100 Noroxycodone Ur [facility] ([facility]) Methadone [Presence] in Urine by Confirmatory method <200 > =200 Methadone Ur Ql [facility] ([facility]) Fentanyl+Norfentanyl [Presence] in Urine by Confirmatory method <5 >=5 Fentanyl+norfentanyl Ur Ql [facility] ([facility]) Meperidine [Presence] in Urine by Confirmatory method <100 >=100 Meperidine Ur Ql [facility] ([facility]) Carisoprodol+Meprobamate [Presence] in Urine by Screen method <200 >=200 Carisoprodol+meprob Ur Ql [facility] ([facility]) Tramadol [Presence] in Urine by Confirmatory method <100 >= 100 Tramadol Ur Ql [facility] ([facility]) pH of Urine 4.5 - 9.0 normal pH Ur [place] ([facility]) Cotinine [Presence] in Urine by Confirmatory method <125 >= 125 Cotinine Ur Ql [facility] ([facility]) Creatinine [Mass/volume] in Urine 34.7 mg/dL 20 - 370 normal [facility]) ID Date Data Source [id number] 10/07/2019 12:00:00 AM EDT [place] ([facility]) Name Value Range Interpretation Code Description Data Debra rce(s) Supporting Document(s) ID Date Data Source [id number] 10/07/2019 12:00:00 AM EDT ETHAN ([facility]) Name Value Range Interpretation Code Description Data Debra rce(s) Supporting Document(s) ID Date Data Source [id number] 10/07/2019 12:00:00 AM EDT ETHAN ([facility]) Name Value Range Interpretation Code Description Data Debra rce(s) Supporting Document(s) oxycodone ur CMP 1090 NG/mL >=100 Abnormal (applies to non -numeric results) Oxycodone Ur CMP ETHAN ([facility]) ID Date Data Source [id number] 10/07/2019 12:00:00 AM EDT ETHAN ([facility]) Name Value Range Interpretation Code Description Data Debra rce(s) Supporting Document(s) Ethyl glucuronide [Mass/volume] in Urine by Confirmatory method <50 0 >=500 Ethyl Glucuronide Ur [facility] ([facility]) alcohol metabolites ur ql cfm <200 >=200 Alcoho l Metabolites Ur Ql [facility] ([facility]) Buprenorphine [Presence] in Urine by Confirmatory method <1 >=1 Buprenorphine Ur Ql [facility] ([facility]) Benzodiazepines [Presence] in Urine by Confirmatory method <50 >=50 Benzodiaz Ur Ql [facility] ([facility]) Amphetamines [Presence] in Urine by Confirmatory method <0 >=0 Amphetamines Ur Ql [facility] ([facility]) Tapentadol [Presence] in Urine by Confirmatory method <100 >=100 Tapentadol Ur Ql [facility] ([facility]) Ethyl sulfate [Mass/volume] in Urine by Confirmatory method <200 >=200 Ethyl Sulfate Ur [facility] ([facility]) gabapentinpregabalin ur ql cfm <5 >=5 Gabap entinpregabalin [facility] Oxymorphone [Mass/volume] in Urine by Confirmatory method 129 NG/mL >=100 Oxymorphone Ur [facility] ([facility]) Opiates [Presence] in Urine by Confirmatory method >=100 >=1 00 Opiates Ur Ql [facility] ([facility]) Oxycodone [Mass/volume] in Urine by Confirmatory method 568 NG/mL >=100 Oxycodone Ur [facility] ([facility]) Cocaine [Presence] in Urine by Confirmatory method <50 >=50 Bze Ur Ql [facility] ([facility]) 6-Monoacetylmorphine (6-ERIKA) [Presence] in Urine by Confirma tory method <10 >=10 6Mam Ur Ql [facility] ([facility]) Noroxycodone [Mass/volume] in Urine by Confirmatory method 401 NG/m L >=100 Noroxycodone Ur [facility] ([facility]) Meperidine [Presence] in Urine by Confirmatory method <100 >=100 Meperidine Ur Ql [facility] ([facility]) Methadone [Presence] in Urine by Confirmatory method <200 > =200 Methadone Ur Ql [facility] ([facility]) Fentanyl+Norfentanyl [Presence] in Urine by Confirmatory method <5 >=5 Fentanyl+norfentanyl Ur Ql [facility] ([facility]) Creatinine [Mass/volume] in Urine 34.7 mg/dL 20 - 370 normal [facility] Tramadol [Presence] in Urine by Confirmatory method <100 >= 100 Tramadol Ur Ql [facility] ([facility]) Cotinine [Presence] in Urine by Confirmatory method <125 >= 125 Cotinine Ur Ql [facility] ([facility]) pH of Urine 4.5 - 9.0 normal pH Ur [place] ([facility]) Carisoprodol+Meprobamate [Presence] in Urine by Screen method <200 >=200 Carisoprodol+meprob Ur Ql [facility] ([facility]) ID Date Data Source [id number] 10/07/2019 12:00:00 AM EDT [facility] ([facility]) Name Value Range Interpretation Code Description Data Debra rce(s) Supporting Document(s) ID Date Data Source [id number] 10/07/2019 12:00:00 AM EDT [facility] ([facility]) Name Value Range Interpretation Code Description Data Debra rce(s) Supporting Document(s) ID Date Data Source [id number] 10/07/2019 12:00:00 AM EDT [facility] ([facility]) Name Value Range Interpretation Code Description Data Debra rce(s) Supporting Document(s) oxycodone ur CMP 1090 NG/mL >=100 Abnormal (applies to non -numeric results) Oxycodone Ur CMP [facility] ([facility]) ID Date Data Source [id number] 10/07/2019 12:00:00 AM EDT [facility] ([facility]) Name Value Range Interpretation Code Description Data Debra rce(s) Supporting Document(s) alcohol metabolites ur ql cfm <200 >=200 Al[facility]o l [facility] Buprenorphine [Presence] in Urine by Confirmatory method <1 >=1 Buprenorphine Ur Ql [facility] ([facility]) Amphetamines [Presence] in Urine by Confirmatory method <0 >=0 Amphetamines Ur Ql Cfm [facility] ([facility]) Tapentadol [Presence] in Urine by Confirmatory method <100 >=100 Tapentadol Ur Ql Cf [facility] ([facility]) Ethyl glucuronide [Mass/volume] in Urine by Confirmatory method <50 0 >=500 Ethyl Glucuronide Ur [facility] [place] ([facility]) Ethyl sulfate [Mass/volume] in Urine by Confirmatory method <200 >=200 [facility]yl Sulfate [facility] ([facility]) Benzodiazepines [Presence] in Urine by Confirmatory method <50 >=50 Benzodiaz Ur Ql Cf [facility] ([facility]) gabapentinpregabalin ur ql cf <5 >=5 Gabap entinpregabalin Ur Ql [facility] ([facility]) Opiates [Presence] in Urine by Confirmatory method >=100 >=1 00 Opiates Ur Ql [facility] ([facility]) Cocaine [Presence] in Urine by Confirmatory method <50 >=50 Bze Ur Ql [facility] ([facility]) Oxycodone [Mass/volume] in Urine by Confirmatory method 568 NG/mL >=100 Oxycodone Ur [facility] ([facility]) Noroxycodone [Mass/volume] in Urine by Confirmatory method 401 NG/m L >=100 Noroxycodone Ur [facility] ([facility]) Oxymorphone [Mass/volume] in Urine by Confirmatory method 129 NG/mL >=100 Oxymorphone Ur [facility] ([facility]) 6-Monoacetylmorphine (6-ERIKA) [Presence] in Urine by Confirma tory method <10 >=10 6Mam Ur Ql [facility] ([facility]) Meperidine [Presence] in Urine by Confirmatory method <100 >=100 Meperidine Ur Ql [facility] ([facility]) Methadone [Presence] in Urine by Confirmatory method <200 > =200 Methadone Ur Ql [facility] ([facility]) Cotinine [Presence] in Urine by Confirmatory method <125 >= 125 Cotinine Ur Ql [facility] ([facility]) Fentanyl+Norfentanyl [Presence] in Urine by Confirmatory method <5 >=5 Fentanyl+norfentanyl Ur Ql [facility] ([facility]) Carisoprodol+Meprobamate [Presence] in Urine by Screen method <200 >=200 Carisoprodol+meprob Ur Ql [facility] ([facility]) Tramadol [Presence] in Urine by Confirmatory method <100 >= 100 Tramadol Ur Ql [facility] ([facility]) pH of Urine 4.5 - 9.0 normal pH Ur [place] ([facility]) Creatinine [Mass/volume] in Urine 34.7 mg/dL 20 - 370 normal Cr eat Ur-mcnc [facility] ([facility]) ID Date Data Source [id number] 10/07/2019 12:00:00 AM EDT [facility] ([facility]) Name Value Range Interpretation Code Description Data Debra rce(s) Supporting Document(s) ID Date Data Source [id number] 10/07/2019 12:00:00 AM EDT [facility] ([facility]) Name Value Range Interpretation Code Description Data Debra rce(s) Supporting Document(s) ID Date Data Source [id number] 10/07/2019 12:00:00 AM EDT [facility] ([facility]) Name Value Range Interpretation Code Description Data Debra rce(s) Supporting Document(s) oxycodone ur CMP 1090 NG/mL >=100 Abnormal (applies to non -numeric results) Oxycodone Ur CMP [facility] ([facility]) ID Date Data Source [id number] 10/07/2019 12:00:00 AM EDT [facility] ([facility]) Name Value Range Interpretation Code Description Data Debra rce(s) Supporting Document(s) Buprenorphine [Presence] in Urine by Confirmatory method <1 >=1 [facility] alcohol metabolites ur ql cfm <200 >=200 Alcoho l Metabolites Ur Ql Cf [facility] ([facility]) Ethyl glucuronide [Mass/volume] in Urine by Confirmatory method <50 0 >=500 Ethyl Glucuronide Ur [facility] ([facility]) Ethyl sulfate [Mass/volume] in Urine by Confirmatory method <200 >=200 Ethyl Sulfate Ur [facility] ([facility]) Amphetamines [Presence] in Urine by Confirmatory method <0 >=0 Amphetamines Ur Ql Cfm [place] ([facility]) Tapentadol [Presence] in Urine by Confirmatory method <100 >=100 Tapentadol Ur Ql Cfm [facility] ([facility]) Opiates [Presence] in Urine by Confirmatory method >=100 >=1 00 Opiates Ur Ql [facility] ([facility]) Benzodiazepines [Presence] in Urine by Confirmatory method <50 >=50 Benzodiaz Ur Ql [facility] ([facility]) gabapentinpregabalin [facility] <5 >=5 Gabap entinpregabalin Ur Ql [facility] ([facility]) Cocaine [Presence] in Urine by Confirmatory method <50 >=50 Bze Ur Ql [facility] ([facility]) Oxycodone [Mass/volume] in Urine by Confirmatory method 568 NG/mL >=100 Oxycodone Ur [facility] ([facility]) Noroxycodone [Mass/volume] in Urine by Confirmatory method 401 NG/m L >=100 Noroxycodone Ur [facility] ([facility]) Methadone [Presence] in Urine by Confirmatory method <200 > =200 Methadone Ur Ql [facility] ([facility]) Oxymorphone [Mass/volume] in Urine by Confirmatory method 129 NG/mL >=100 Oxymorphone Ur [facility] ([facility]) 6-Monoacetylmorphine (6-ERIKA) [Presence] in Urine by Confirma tory method <10 >=10 6Mam Ur Ql [facility] ([facility]) Fentanyl+Norfentanyl [Presence] in Urine by Confirmatory method <5 >=5 Fentanyl+norfentanyl Ur Ql [facility] ([facility]) Meperidine [Presence] in Urine by Confirmatory method <100 >=100 Meperidine Ur Ql [facility] ([facility]) Tramadol [Presence] in Urine by Confirmatory method <100 >= 100 Tramadol Ur Ql [facility] ([facility]) Carisoprodol+Meprobamate [Presence] in Urine by Screen method <200 >=200 Carisoprodol+meprob Ur Ql [facility] ([facility]) Creatinine [Mass/volume] in Urine 34.7 mg/dL 20 - 370 normal [facility] pH of Urine 4.5 - 9.0 normal pH Ur [facility] ([facility]) Cotinine [Presence] in Urine by Confirmatory method <125 >= 125 Cotinine Ur Ql Cfm [facility] ([facility]) ID Date Data Source [id number] 10/07/2019 12:00:00 AM EDT [facility] ([facility]) Name Value Range Interpretation Code Description Data Debra rce(s) Supporting Document(s) ID Date Data Source [id number] 10/07/2019 12:00:00 AM EDT [facility] ([facility]) Name Value Range Interpretation Code Description Data Debra rce(s) Supporting Document(s) ID Date Data Source [id number] 10/07/2019 12:00:00 AM EDT [facility] ([facility]) Name Value Range Interpretation Code Description Data Debra rce(s) Supporting Document(s) oxycodone ur CMP 1090 NG/mL >=100 Abnormal (applies to non -numeric results) Oxycodone Ur CMP [facility] ([facility]) ID Date Data Source [id number] 10/07/2019 12:00:00 AM EDT [facility] ([facility]) Name Value Range Interpretation Code Description Data Debra rce(s) Supporting Document(s) Buprenorphine [Presence] in Urine by Confirmatory method <1 >=1 Buprenorphine Ur Ql Cfm [facility] ([facility]) alcohol metabolites ur ql cfm <200 >=200 Alcoho l Metabolites Ur Ql Cfm [facility] ([facility]) Ethyl glucuronide [Mass/volume] in Urine by Confirmatory method <50 0 >=500 Ethyl Glucuronide Ur Cf-nc [facility] ([facility]) Ethyl sulfate [Mass/volume] in Urine by Confirmatory method <200 >=200 Ethyl Sulfate Ur [facility] ([facility]) Amphetamines [Presence] in Urine by Confirmatory method <0 >=0 Amphetamines Ur Ql Cfm [facility] ([facility]) Tapentadol [Presence] in Urine by Confirmatory method <100 >=100 Tapentadol Ur Ql [facility] ([facility]) Benzodiazepines [Presence] in Urine by Confirmatory method <50 >=50 Benzodiaz Ur Ql [facility] ([facility]) Opiates [Presence] in Urine by Confirmatory method >=100 >=1 00 Opiates Ur Ql [facility] ([facility]) gabapentinpregabalin [facility] ql [facility] <5 >=5 Gabap entinpregabalin Ur Ql [facility] ([facility]) Cocaine [Presence] in Urine by Confirmatory method <50 >=50 Bze Ur Ql [facility] ([facility]) Oxymorphone [Mass/volume] in Urine by Confirmatory method 129 NG/mL >=100 Oxymorphone Ur [facility] ([facility]) 6-Monoacetylmorphine (6-ERIKA) [Presence] in Urine by Confirma tory method <10 >=10 6Mam Ur Ql [facility] ([facility]) Noroxycodone [Mass/volume] in Urine by Confirmatory method 401 NG/m L >=100 Noroxycodone Ur [facility] ([facility]) Oxycodone [Mass/volume] in Urine by Confirmatory method 568 NG/mL >=100 Oxycodone Ur [facility] ([facility]) Methadone [Presence] in Urine by Confirmatory method <200 > =200 Methadone Ur Ql [facility] ([facility]) Meperidine [Presence] in Urine by Confirmatory method <100 >=100 Meperidine Ur Ql [facility] ([facility]) Fentanyl+Norfentanyl [Presence] in Urine by Confirmatory method <5 >=5 Fentanyl+norfentanyl Ur Ql [facility] ([facility]) Carisoprodol+Meprobamate [Presence] in Urine by Screen method <200 >=200 Carisoprodol+meprob Ur Ql [facility] ([facility]) Tramadol [Presence] in Urine by Confirmatory method <100 >= 100 Tramadol Ur Ql [facility] ([facility]) Cotinine [Presence] in Urine by Confirmatory method <125 >= 125 Cotinine Ur Ql Cfm [facility] ([facility]) Creatinine [Mass/volume] in Urine 34.7 mg/dL 20 - 370 normal Cr eat Ur-mcnc [facility] ([facility]) pH of Urine 4.5 - 9.0 normal pH Ur [facility] ([facility]) ID Date Data Source [id number] 10/07/2019 12:00:00 AM EDT [facility] ([facility]) Name Value Range Interpretation Code Description Data Debra rce(s) Supporting Document(s) ID Date Data Source [id number] 10/07/2019 12:00:00 AM EDT [facility] ([facility]) Name Value Range Interpretation Code Description Data Debra rce(s) Supporting Document(s) ID Date Data Source [id number] 10/07/2019 12:00:00 AM EDT [facility] ([facility]) Name Value Range Interpretation Code Description Data Debra rce(s) Supporting Document(s) oxycodone ur CMP 1090 NG/mL >=100 Abnormal (applies to non -numeric results) Oxycodone Ur CMP [facility] ([facility]) ID Date Data Source [id number] 10/07/2019 12:00:00 AM EDT ETH[facility] ([facility]) Name Value Range Interpretation Code Description Data Debra rce(s) Supporting Document(s) oxycodone ur CMP 1090 NG/mL >=100 Abnormal (applies to non -numeric results) Oxycodone Ur CMP [facility] ([facility]) ID Date Data Source [id number] 10/07/2019 12:00:00 AM EDT [facility] ([facility]) Name Value Range Interpretation Code Description Data Debra rce(s) Supporting Document(s) Buprenorphine [Presence] in Urine by Confirmatory method <1 >=1 Buprenorphine Ur Ql [facility] ([facility]) alcohol metabolites ur ql cf <200 >=200 Alcoho l Metabolites Ur Ql [facility] ([facility]) Ethyl sulfate [Mass/volume] in Urine by Confirmatory method <200 >=200 Ethyl Sulfate Ur [facility] ([facility]) Ethyl glucuronide [Mass/volume] in Urine by Confirmatory method <50 0 >=500 Ethyl Glucuronide Ur [facility] ([facility]) Amphetamines [Presence] in Urine by Confirmatory method <0 >=0 Amphetamines Ur Ql [facility] ([facility]) gabapentinpregabalin [facility] <5 >=5 Gabap entinpregabalin Ur Ql [facility] ([facility]) Benzodiazepines [Presence] in Urine by Confirmatory method <50 >=50 Benzodiaz Ur Ql [facility] ([facility]) Tapentadol [Presence] in Urine by Confirmatory method <100 >=100 Tapentadol Ur Ql [facility] ([facility]) Cocaine [Presence] in Urine by Confirmatory method <50 >=50 Bze Ur Ql [facility] ([facility]) Oxymorphone [Mass/volume] in Urine by Confirmatory method 129 NG/mL >=100 Oxymorphone Ur [facility] ([facility]) Oxycodone [Mass/volume] in Urine by Confirmatory method 568 NG/mL >=100 Oxycodone Ur [facility] ([facility]) Opiates [Presence] in Urine by Confirmatory method >=100 >=1 00 Opiates Ur Ql [facility] ([facility]) Noroxycodone [Mass/volume] in Urine by Confirmatory method 401 NG/m L >=100 Noroxycodone Ur [facility] ([facility]) 6-Monoacetylmorphine (6-ERIKA) [Presence] in Urine by Confirma tory method <10 >=10 6Mam Ur Ql [facility] ([facility]) Methadone [Presence] in Urine by Confirmatory method <200 > =200 Methadone Ur Ql [facility] ([facility]) Meperidine [Presence] in Urine by Confirmatory method <100 >=100 Meperidine Ur Ql Cfm [facility] ([facility]) Tramadol [Presence] in Urine by Confirmatory method <100 >= 100 Tramadol Ur Ql Cfm [facility] ([facility]) Fentanyl+Norfentanyl [Presence] in Urine by Confirmatory method <5 >=5 Fentanyl+norfentanyl Ur Ql Cfm [facility] ([facility]) Carisoprodol+Meprobamate [Presence] in Urine by Screen method <200 >=200 Carisoprodol+meprob Ur Ql Scn [facility] ([facility]) Cotinine [Presence] in Urine by Confirmatory method <125 >= 125 Cotinine Ur Ql Cfm [facility] ([facility]) pH of Urine 4.5 - 9.0 normal pH Ur [facility] ([facility]) Creatinine [Mass/volume] in Urine 34.7 mg/dL 20 - 370 normal Cr eat Ur-mcnc [facility] ([facility]) ID Date Data Source [id number] 10/07/2019 12:00:00 AM EDT [facility] ([facility]) Name Value Range Interpretation Code Description Data Debra rce(s) Supporting Document(s) ID Date Data Source [id number] 10/07/2019 12:00:00 AM EDT [facility] ([facility]) Name Value Range Interpretation Code Description Data Debra rce(s) Supporting Document(s) ID Date Data Source [id number] 09/21/2019 01:22:00 PM EST [facility] ([facility]) Name Value Range Interpretation Code Description Data Debra rce(s) Supporting Document(s) Thyroxine (T4) free [Mass/volume] in Serum or Plasma 1.25 ng/dL 0.89- 1.80 [facility] ([facility]) Please check methylmalonic acid and seru m protein electrophoresis with immunofixation Non Fasting Thyrotropin [Units/volume] in Serum or Plasma 2.375 mIU/ml 0.350-5.50 0 [facility] ([facility]) Please check methylmalonic acid and seru m protein electrophoresis with immunofixation Non Fasting Folate [Mass/volume] in Serum or Plasma 14.46 ng/mL 1.1-20.0 [facility] ([facility]) Please check methylmalonic acid and seru m protein electrophoresis with immunofixation Non Fasting Erythrocyte sedimentation rate by Westergren method 1 mm/hr 0-15 [facility] ([facility]) Please check methylmalonic acid and seru m protein electrophoresis with immunofixation Non Fasting Cobalamin (Vitamin B12) [Mass/volume] in Serum or Plasma 1474 pg /mL 211-911 Above high normal [facility] ([facility]) Please check methylmalonic acid and seru m protein electrophoresis with immunofixation Non Fasting C reactive protein [Mass/volume] in Serum or Plasma Laborato ry test result 0-1.0 [facility] ([facility]) Please check methylmalonic acid and seru m protein electrophoresis with immunofixation Non Fasting Rheumatoid factor [Units/volume] in Serum or Plasma 6.5 U/mL 0-13.9 9 [facility] ([facility]) Please check methylmalonic acid and seru m protein electrophoresis with immunofixation Non Fasting Nuclear Ab [Presence] in Serum Laboratory test result 0-0 [facility] ([facility]) Please check methylmalonic acid and seru m protein electrophoresis with immunofixation Non Fasting Beta 1 globulin [Mass/volume] in Serum or Plasma by Electrop horesis 0.5 g/dL 0.4-0.6 [facility] ([facility]) Please check methylmalonic acid and seru m protein electrophoresis with immunofixation Non Fasting Alpha 1 globulin/Protein.total in Serum or Plasma by Electro phoresis 0.3 g/dL 0.2-0.3 [facility] ([facility]) Please check methylmalonic acid and seru m protein electrophoresis with immunofixation Non Fasting Albumin [Mass/volume] in Serum or Plasma 3.8 g/dL 3.8-4.8 [facility] ([facility]) Please check methylmalonic acid and seru m protein electrophoresis with immunofixation Non Fasting Alpha 2 globulin/Protein.total in Serum or Plasma by Electro phoresis 0.6 g/dL 0.5-0.9 [facility] ([facility]) Please check methylmalonic acid and seru m protein electrophoresis with immunofixation Non Fasting Dssp-4-Mqxwtsmzjpwvo [Mass/volume] in Serum or Plasma 0.6 g/dL 0.2-0.5 Above high normal [facility] ([facility]) Please check methylmalonic acid and seru m protein electrophoresis with immunofixation Non Fasting Protein Fractions [Interpretation] in Serum or Plasma by Immunofixation Laboratory test result [facility] ([facility]) Serum immunofixation electrophoresis dem onstrates a faint band in IgM with no detectable corresponding light chains. Clinical correlation recommended for interpretation. Gamma globulin [Mass/volume] in Serum or Plasma by Electroph oresis 1.9 g/dL 0.8-1.7 Above high normal [facility] ([facility]) Please check methylmalonic acid and seru m protein electrophoresis with immunofixation Non Fasting Protein [Mass/volume] in Serum or Plasma 7.7 g/dL 6.1-8.1 [facility] ([facility]) Please check methylmalonic acid and seru m protein electrophoresis with immunofixation Non Fasting Methylmalonate [Moles/volume] in Serum or Plasma 170 nmol/L 87-318 [facility] ([facility]) See Note 1 Note 1 This test was developed and its analytical performance characteristics have been determined by [facility]. It has not been cleared or approved by the FDA. This assay has been validated pursuant to the CLIA regulations and is used for clinical purposes. Fatdg-8-Gxuejsqrxwj interpretation in Amniotic fluid Laboratory iwona t result [facility] ([facility]) Beta-2 globulin is increased. This lana cameron can be seen in inflammatory states. However, a monoclonal protein cannot be ruled out. Serum immunofixation is suggested if clinically indicated. Increase in gamma globulins is noted. Consider ordering immunoglobulin quantification to confirm. Venipuncture Laboratory test result [facility] ([facility]) Please check methylmalonic acid and seru m protein electrophoresis with immunofixation Non Fasting ID Date Data Source [id number] 09/23/2019 09:02:00 AM EST [facility] Received: 09/22/2019 at 03:03:00 QPT : [facility], [address], [address] [place], [address], Walt Guerrero MD Received: 09/22/2019 at 03:03:00 QPT : [facility], [address], [address] [place], [address], Walt Guerrero MD Received: 09/22/2019 at 03:03:00 QPT : [facility], [address], [address] [place], [address], Walt Guerrero MD Received: 09/22/2019 at 03:03:00 QPT : [facility], [address], [address] [place], [address], Walt Guerrero MD Name Value Range Interpretation Code Description Data Debra rce(s) Supporting Document(s) ID Date Data Source [id number] 09/23/2019 09:02:00 AM EST [facility] Received: 09/22/2019 at 03:03:00 QPT : [facility], [address], [address] [place] [address], [phone], Walt Guerrero MD Received: 09/22/2019 at 03:03:00 QPT : [facility], [address], [address] [place], [address], Walt Guerrero MD Received: 09/22/2019 at 03:03:00 QPT : [facility], [address], [address] [place], [address], Walt Guerrero MD Received: 09/22/2019 at 03:03:00 QPT : [facility], [address], [address] [place], [address]Walt MD Name Value Range Interpretation Code Description Data Debra rce(s) Supporting Document(s) Protein [Mass/volume] in Serum or Plasma 7.7 g/dL 6.1-8.1 Normal (applies to non-numeric results) [facility] ID Date Data Source [id number] 09/23/2019 09:02:00 AM EST [facility] Received: 09/22/2019 at 03:03:00 QPT : [facility], [address], [address] [place], [address], Walt Guerrero MD Received: 09/22/2019 at 03:03:00 QPT : [facility], [address], [address] [place], [address], Walt Guerrero MD Received: 09/22/2019 at 03:03:00 QPT : [facility], [address], [address] [place], [address], Walt Guerrero MD Received: 09/22/2019 at 03:03:00 QPT : [facility], [address], [address] [place], [address], Walt Guerrero MD Name Value Range Interpretation Code Description Data Debra rce(s) Supporting Document(s) Albumin [Mass/volume] in Serum or Plasma by Electrophoresis 3.8 g/dL 3.8-4.8 Normal (applies to non-numeric results) [facility] Alpha 1 globulin [Mass/volume] in Serum or Plasma by Electro phoresis 0.3 g/dL 0.2-0.3 Normal (applies to non-numeric results) [facility] Alpha 2 globulin [Mass/volume] in Serum or Plasma by Electro phoresis 0.6 g/dL 0.5-0.9 Normal (applies to non-numeric results) [facility] Beta 1 globulin [Mass/volume] in Serum or Plasma by Electrop horesis 0.5 g/dL 0.4-0.6 Normal (applies to non-numeric results) [facility] Beta 2 globulin [Mass/volume] in Serum or Plasma by Electrop horesis 0.6 g/dL 0.2-0.5 Above high normal [facility] Gamma globulin [Mass/volume] in Serum or Plasma by Electroph oresis 1.9 g/dL 0.8-1.7 Above high normal [facility] Protein Fractions [Interpretation] in Serum or Plasma by Electropho resis [facility] Beta-2 globulin is increased. This lana cameron can be seen ininflammatory states. However, a monoclonal protein cannot be ruledout. Serum immunofixation is suggested if clinically indicated.Increase in gamma globulins is noted. Consider orderingimmunoglobulin quantification to confirm. ID Date Data Source [id number] 09/23/2019 09:02:00 AM EST [facility] Received: 09/22/2019 at 03:03:00 QPT : [facility], [address], [address] [place], [address], Walt Guerrero MD Received: 09/22/2019 at 03:03:00 QPT : [facility], [address], [address] [place], [address], Walt Guerrero MD Received: 09/22/2019 at 03:03:00 QPT : [facility], [address], [address] [place], [address], Walt Guerrero MD Received: 09/22/2019 at 03:03:00 QPT : [facility], [address], [address] [place], [address], Walt Guerrero MD Name Value Range Interpretation Code Description Data Debra rce(s) Supporting Document(s) Immunofixation for Serum or Plasma [facility] Serum immunofixation electrophoresis dem onstrates a faint band in IgMwith no detectable corresponding light chains. Clinical correlationrecommended for interpretation. ID Date Data Source [id number] 09/23/2019 09:02:00 AM EST [facility] Received: 09/22/2019 at 03:03:00 QPT : [facility], [address], [address] [place], [address]Walt MD Received: 09/22/2019 at 03:03:00 QPT : [facility], [address], [address] [place], [address]Walt MD Received: 09/22/2019 at 03:03:00 QPT : [facility], [address], [address] [place] [address], [phone] MD Received: 09/22/2019 at 03:03:00 QPT : [facility], [address], [address] [place], [address], Walt Guerrero MD Name Value Range Interpretation Code Description Data Debra rce(s) Supporting Document(s) Methylmalonate [Moles/volume] in Serum or Plasma 170 nmol/L 87-318 Normal (applies to non-numeric results) [facility] See Note 1Note 1This test was developed and its analytical performancecharacteristics have been determined by [employer]. It has not been cleared or approved by theFDA. This assay has been validated pursuant to the CLIAregulations and is used for clinical purposes. ID Date Data Source [id number] 09/16/2019 07:29:42 AM EST [facility], PCName: Bobby TapiaDOB: 2Provider: VitaliyHever: 09/15/2019 Chief ComplaintChronic bilateral hand and feet neuropathy Chief Complaint 2NYSW VAS PAIN Established: AMISH completing section: YURI WELLINGTON History of Present IllnessRecent test/procedures: Patient was asked and denies having any tests since their last visit. Patient was asked and denies being seen by any Physicians since their last visit. At today's visit patient presents with their Partner/Signficant Other Patient is retired. The patient is being seen for a follow-up. Pain Duration: YEARS Pain Quality: (Neuropathic) burning, numbness and pins and needles Pain Quality: (Nociceptive) sharp and stabbing Timing: constant Palliation: opioid analgesics Pain Score: a current pain level of 7/10 and a maximum pain level of 8/10. Review of SystemsROS was reviewed with patient; documented on established patient questionnaire dated 09-15-2019. I feel the ROS to be negative/normal other than Neck ain,back pain. Patient maintains at today's visit there has been no change in his/her hematologic history. Active Problems 1. 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 Degeneration of intervertebral disc of lumbar region (722.52) (M51.36) 3. Encounter for long-term methadone use for pain control (V58.69) (Z79.891) 4. 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 long-term (current) use of opiate analgesic (V58.69) (Z79.891) 6. Lumbar spondylosis (721.3) (M47.816) 7. Lumbar stenosis (724.02) (M48.061) 8. Lumbosacral spondylosis (721.3) (M47.817) 9. Numbness and tingling in both hands (782.0) (R20.0,R20.2) 10. Numbness and tingling in left arm (782.0) (R20.0,R20.2) 11. Numbness and tingling of both legs (782.0) (R20.0,R20.2) 12. Numbness and tingling of foot (782.0) (R20.0,R20.2) 13. Numbness and tingling of right arm (782.0) (R20.0,R20.2) Allergies No Known Drug Allergies Recorded By: Sivan Pickering; 11/24/2018 1:10:47 PMDenied Adhesive Tape Recorded By: Sivan Pickering; 11/24/2018 1:10:47 PM Iodinated Contrast Media Recorded By: Sivan Pickering; 11/24/2018 1:10:47 PM Latex Recorded By: Sivan Pickering; 11/24/2018 1:10:47 PM Current Meds Amitriptyline HCl - 25 MG Oral Tablet; TAKE 1 TO 2 TABLETS AT BEDTIME MDD:2;Therapy: [id number] to (Evaluate:[id number]) Requested for: [id number]; LastRx:[id number] Ordered Fish Oil CAPS;Therapy: (Recorded:24Nov2018) to Re corded Tarka 4-240 MG Oral Tablet Extended Release;Therapy: (Recorded:24Nov2018) to Recorded Past Medical History Denied: History of anticoagulant therapy History of breast cancer (V10.3) (Z85.3) Denied: History of coagulation defect History of hypertension (V12.59) (Z86.79) Surgical History Denied: History of Cardioverter defibrillator insertion History of Cholecystectomy History of Incisional biopsy of breast Denied: History of Pacemaker insertion History of Tarsal tunnel repair left Family History Family history of hypertension (V17.49) (Z82.49) Family history of hypertension (V17.49) (Z82.49) Social History Current non-drinker of alcohol (V49.89) (Z78.9) Never a smoker No illicit drug use Retired from employment [employer] Recorded: 15Sep2019 03:14PM Height: 5 ft 10 inWeight: 204 lb BMI Calculated: 29.27BSA Calculated: 2.1Systolic: 140, SittingDiastolic: 84, SittingHeart Rate: 72Respiration: 16Pain Scale: 8 Physical ExamGeneral: The patient is a well nourished/well developed, male, with a medium build, who is in no acute distress and appears stated age. Ears, Nose, Mouth, Throat: external ears and nose without trauma. Skin: Warm, dry, acyanotic. Psychological: Alert and oriented to person, place and time. Mood and affect are pleasant and appropriate. Judgement intact. Insight normal without delusions or hallucinations. Denies suicidal/homicidal ideation. Assessment 1. 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 Renew: Amitriptyline HCl - 25 MG Oral Tablet; Take four at bedtime MDD:4 2. Follow-Up with Original Provider Follow Up Follow-up Status: Hold For - Scheduling Requested for: [id number] Appointment for 15 or 30 minutes : Schedule 15 minute appointmentSchedule With: : Aashish Forrestchedule : Follow-up in 2 months Medication:. NIMISHA AIRCRAFT MAINTENANCE TECHNICIAN Information: AIRCRAFT MAINTENANCE TECHNICIAN was consulted by my designee and I have reviewed the information presented to me and find no aberrant compliance issues. Patient has been informed. General Medications Prescribed: AMITRIPTYLINE . GENERAL MEDICATIONS: I advised the patient today/previously regarding treatment with the above medication(s). The risks, benefits, common side effects and alternative treatments were discussed with the patient. The provider verbalized with the patient. The patient verbalized understanding and was told to call if there were any untoward effects. Treatment includes: FOLLOW UP: The patient should have a follow up visit in 2 months. Discussion/SummaryRobyeison is a 69-year-old male present with his who is understandably upset about losing his opioid privileges due to continually self increasing. I did offer the opioid privileges process but advised that I did not feel he would have a good chance of having his privileges restored. I did give him a 4 week titration of a mitriptyline 25 mg with instructions to titrate up to a maximum of 150 mg. We will see him back in two months. I gave him the number to [facility]. He wrote down some of his blood pressures recently 192/107, 283/153, 285/193. I informed him that these were dangerously high and he has a significant risk of having a heart attack or stroke. I advised him to follow up with his PCP immediately.His blood pressure at todays visit was 140/84. Signatures Electronically signed by : DOMINIQUE Bean; Sep 15 2019 4:03PM EST (Author) Electronically signed by : Nilesh King MD; Sep 16 2019 7:29AM EST Name Value Range Interpretation Code Description Data Debra rce(s) Supporting Document(s) ID Date Data Source [id number] 09/03/2019 01:04:59 PM EST [place] [facility], PCName: Bobby yeison WillieDOB: 2Provider: Mallory Forrest: 09/02/2019 Chief ComplaintChronic bilateral hand and feet neuropathy Chief Complaint 2Chronic low back pain [facility] VAS PAIN Established: AMISH completing section: todume History of Present IllnessRecent test/procedures: Patient was asked and denies having any tests since their last visit. Patient was asked and denies being seen by any Physicians since their last visit. At today's visit patient presents with their Self Patient is retired. The patient is being seen for a follow-up. Pain Duration: 15yrs Condition type: The patient is being seen for a chronic condition. PAIN LOCATION: (bilateral hand and bilateral feet). REVIEW OF PAST DIAGNOSTICS: have included: MRI and CT. PAST TREATMENT has included: OPIOID ANALGESICS (effective) Includes Methadone . INTERVAL EVENTS: include . He reports that he has not been able to sleep. Review of SystemsROS was reviewed with patient; documented on established patient questionnaire dated 09/02/2019. I feel the ROS to be negative/normal other than musculoskeletal . Patient maintains at today's visit there has been no change in his/her hematologic history. Active Problems 1. 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 Degeneration of intervertebral disc of lumbar region (722.52) (M51.36) 3. Encounter for long-term methadone use for pain control (V58.69) (Z79.891) 4. 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 long-term (current) use of opiate analgesic (V58.69) (Z79.891) 6. Lumbar spondylosis (721.3) (M47.816) 7. Lumbar stenosis (724.02) (M48.061) 8. Lumbosacral spondylosis (721.3) (M47.817) 9. Numbness and tingling in both hands (782.0) (R20.0,R20.2) 10. Numbness and tingling in left arm (782.0) (R20.0,R20.2) 11. Numbness and tingling of both legs (782.0) (R20.0,R20.2) 12. Numbness and tingling of foot (782.0) (R20.0,R20.2) 13. Numbness and tingling of right arm (782.0) (R20.0,R20.2) Allergies No Known Drug Allergies Recorded By: Sivan Pickering; 11/24/2018 1:10:47 PMDenied Adhesive Tape Recorded By: Sivan Pickering; 11/24/2018 1:10:47 PM Iodinated Contrast Media Recorded By: Sivan Pickering; 11/24/2018 1:10:47 PM Latex Recorded By: Sivan Pickering; 11/24/2018 1:10:47 PM Current Meds diazePAM 5 MG Oral Tablet; 1 po tid prn x 4 days then D/C - NO DRIVING WHILE USINGVALIUM MDD:3;Therapy: 31Aug2019 to (Evaluate:20Shh1454) Requested for: 31Aug2019; LastRx:31Aug2019 Ordered Fish Oil CAPS;Therapy: (Recorded:24Nov2018) to Recorded Methadone HCl - 5 MG Oral Tablet; TAKE 1 TABLET 3 times daily MDD:3;Therapy: 04Aug2019 to (Evaluate:[id number]) Requested for: 04Aug2019; LastRx:04Aug2019 OrderedLD 08/29/2019 Tarka 4-240 MG Oral Tablet Extended Release;Therapy: (Recorded:24Nov2018) to Recorded Past Medical History Denied: History of anticoagulant therapy History of breast cancer (V10.3) (Z85.3) Denied: History of coagulation defect History of hypertension (V12.59) (Z86.79) Surgical History Denied: History of Cardioverter defibrillator insertion History of Cholecystectomy History of Incisional biopsy of breast Denied: History of Pacemaker insertion History of Tarsal tunnel repair left Family History Family history of hypertension (V17.49) (Z82.49) Family history of hypertension (V17.49) (Z82.49) Social History Current non-drinker of alcohol (V49.89) (Z78.9) Never a smoker No illicit drug use Retired from employment [employer] Recorded: 02Sep2019 02:13PM Height: 5 ft 10 inWeight: 208 lb BMI Calculated: 29.85BSA Calculated: 2.12Systolic: 166, SittingDiastolic: 89, SittingHeart Rate: 77Respiration: 15Height measured w/wo shoes: w/shoesPain Scale: 5 Physical ExamGeneral: The patient is a well nourished/well developed, male, heavy set, who is in no acute distress and appears stated age. Eyes: Lids are atraumatic, no lesions, sclerae are anicteric. Ears, Nose, Mouth, Throat: external ears and nose without trauma. Gait and Station: Gait was normal. Respiratory: Normal chest expansion and respiratory effort. Skin: Warm, dry, acyanotic. Psychological: Alert and oriented to person, place and time. Mood and affect are pleasant and appropriate. Judgement intact. Insight normal without delusions or hallucinations. Denies suicidal/homicidal ideation. Assessment 1. 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 Stop: Methadone HCl - 5 MG Oral TabletLD 08/29/2019 2. Start: Amitriptyline HCl - 25 MG Oral Tablet; TAKE 1 TO 2 TABLETS AT BEDTIME MDD:2 3. Follow-up in 6 weeks Follow Up Follow-up Status: Complete Done: [id number] Appointment for 15 or 30 minutes : Schedule 15 minute appointment In my opinion based on subjective and objective findings from today's visit the patient is status quo. Medication:. Antidepressants Prescribed: AMITRIPTYLINE . ANTI-DEPRESSANT: I advised the patient today/previously regarding treatment with the above antidepressant(s). Patient is aware of rare but serious risk of potential suicidal thoughts, worsening depression, and/or serotonin syndrome. Patient agrees to discontinue medication and to contact [facility], friend(s) or family member(s), and/or 1 if this occurs.MEDICATION CHANGES, RATIONALE and FUNCTIONALITY: START AMITRIPTYLINE 25 MG 1-2 TABS AT NIGHT A NEUROPATHIC ANALGESIC. The prescribed medications are medically necessary for pain management and rehabilitation. Treatment includes: PROCEDURE(S): the patient defers blocks/procedures at this time FOLLOW UP: The patient should have a follow up visit in 6 weeks. CONTINUE TREATMENT: Mikey will continue with the following: NEUROLOGY. - [employer] NURSE: The patient was counseled on the following: treatment plan and future treatment options (CONSIDER NEUROMODULATOR). Discussion/Vazacji52 yr. old male who presents today complaints of inability to sleep due to his increased "pain". He saw Dr. Sal padilla 07/07/2019 and the treatment plan was for him to discontinue methadone 10 mg TID and to start MSER 15 mg BID MDD 2. The patient did start the morphine but soon after reported that the morphine was elevating his blood pressure and he did not want to continue to take this medication. I explained to the patient that morphine or any opioid does not elevate one's blood pressure in fact it would suppress it. The patient insisted that it was elevating his blood pressure and he presented for [facility] the [place] [facility] on 08/04/2019. He was provided with a prescription for methadone 5 mg TID MDD 3 and he was advised to follow-up with his PCP in regards to his elevated blood pressure. On 08/25/2019 the patient called into triage stating that he was going to run out of medication prior to his refill date. The patient was self increasing his medication. He was 17 pills short and had not taking the methadone and 3 days. Discussed this with drug compliance and the patient was provided with a short-term prescription of Valium as an adjunct to prevent withdrawal symptoms. The patient called the on-call service in the middle of the night on 09/02/2019 indicating that he was not able to sleep because of his pain (see on-call note). The patient had an FMD to see Dr. Huang on 09/03/2019 however he demanded to be seen today. The patient presented with complaints of increased pain and not being able to sleep. I informed the patient that I do not prescribe sleeping aids and I will not be refilling his methadone or provide him with any other opioid pain medication due to his self increasing and he is a safety risk. I informed the patient that he really needs to follow through with a spinal cord stimulator as Dr. Huang recommended. I informed him of what his options were as far as neuropathic analgesics. He tells me that he will be seeing a neurologist (Dr. Story) in the near future. He will trial amitriptyline 25 mg 1-2 tabs at for his neuropathy. He will follow up in 6 weeks for further follow-up to see if this medication is tolerable and effective. Signatures Electronically signed by : Aashish Forrest NP; Sep 03 2019 11:32AM EST (Author) Electronically signed by : Jarrod Garcia MD; Sep 03 2019 1:04PM EST Name Value Range Interpretation Code Description Data Debra rce(s) Supporting Document(s) Procedure Social History Code Duration Value Status Description Data Source(s ) Smoking 05/05/2020 12:00:00 AM EDT Never smoked tobacco (findi ng) completed Never smoked tobacco (finding) [facility] Smoking 12/09/2019 12:00:00 AM EDT Patient has never smoked co mpleted Patient has never smoked MED[facility] ([facility]) Smoking 12/04/2019 03:25:00 PM EDT Denies Ever Smoked complete d Denies Ever Smoked [facility] Smoking 12/01/2019 12:00:00 AM EDT Never smoked tobacco (findi ng) completed Never smoked tobacco (finding) [place] ([facility]) Smoking 10/08/2019 12:00:00 AM EDT Never smoked tobacco (findi ng) completed Never smoked tobacco (finding) [facility] Assertion 10/08/2019 12:00:00 AM EDT Finding relat ing to drug misuse behavior (finding) completed Finding relating to drug misuse behavior (finding) [facility] ([facility] Assertion 10/08/2019 12:00:00 AM EDT Current drinker of al cohol (finding) completed Current drinker of alcohol (finding) [facility] ([facility]) Smoking 09/07/2019 12:00:00 AM EST Never smoked tobacco (findi ng) completed Never smoked tobacco (finding) [facility]) Vital Signs ID Date Data Source UNK Name Value Range Interpretation Code Description Data Source(s) Heart rate 78 /min 78 /min [facility] ([facility], [facility]) Diastolic blood pressure 76 mm[Hg] 76 mm[Hg] [facility] ([facility], [facility]) Systolic blood pressure 127 mm[Hg] 127 mm[Hg] M EDENT ([facility], [facility]) Body mass index (BMI) [Ratio] 25.5 kg/m2 25.5 k g/m2 [facility] ([facility]) Body height 72 [in_i] 72 [in_i] [facility] ([facility]) 6'0" Body weight 188.00 [lb_av] 188.00 [lb_av] MED[facility] T ([facility]) Body temperature 98.7 [degF] 98.7 [degF] [facility] ([facility]) Oxygen saturation in Arterial blood by Pulse oximetry 99 % 99 % [facility] ([facility], [facility]) Respiratory rate 16 /min 16 /min [facility] ( [facility]) Systolic blood pressure 131 mm[Hg] 131 mm[Hg] A THENA ([facility]) Body height 72 [in_i] 72 [in_i] ETHAN ([facility]) Diastolic blood pressure 78 mm[Hg] 78 mm[Hg] [facility] ([facility]) Body weight 90.720 kg 90.720 kg [facility] ([facility], ) [place] body weight 178 [lb_av] 178 [lb_av] MEDEN T ([facility], ) Body mass index (BMI) [Ratio] 27.1 kg/m2 27.1 k g/m2 [facility] ([facility], ) Body weight 200.00 [lb_av] 200.00 [lb_av] MED[facility] T ([facility], ) Body height 72 [in_i] 72 [in_i] [facility] ([facility], ) 6'0" Systolic blood pressure 156 mm[Hg] 156 mm[Hg] A THENA ([facility]) Body height 72 [in_i] 72 [in_i] ETH[facility] ([facility]) Diastolic blood pressure 89 mm[Hg] 89 mm[Hg] [facility] ([facility]) Systolic blood pressure 156 mm[Hg] 156 mm[Hg] A THE[facility] ([facility]) Body height 72 [in_i] 72 [in_i] [facility] ([facility]) Diastolic blood pressure 89 mm[Hg] 89 mm[Hg] [facility] ([facility]) Systolic blood pressure 156 mm[Hg] 156 mm[Hg] A THENA ([facility]) Body height 72 [in_i] 72 [in_i] [facility] ([facility]) Diastolic blood pressure 89 mm[Hg] 89 mm[Hg] [facility] ([facility]) Body temperature 97.2 [degF] 97.2 [degF] [facility] ([facility]) Body weight 105.235 kg 105.235 kg [facility] ([facility]) Body mass index (BMI) [Ratio] 31.5 kg/m2 31.5 k g/m2 [facility] ([facility]) Heart rate 73 /min 73 /min [facility] ([facility]) Diastolic blood pressure 85 mm[Hg] 85 mm[Hg] [facility] ([facility]) Systolic blood pressure 137 mm[Hg] 137 mm[Hg] M EDENT ([facility]) Body weight 232.00 [lb_av] 232.00 [lb_av] MEDEN T ([facility]) Body height 72 [in_i] 72 [in_i] [facility] ([facility]) 6'0" Systolic blood pressure 148 mm[Hg] 148 mm[Hg] A THENA ([facility]) Body height 72 [in_i] 72 [in_i] ETHAN ([facility]) Diastolic blood pressure 79 mm[Hg] 79 mm[Hg] [facility] ([facility]) Systolic blood pressure 148 mm[Hg] 148 mm[Hg] A THENA ([facility]) Body height 72 [in_i] 72 [in_i] [facility] ([facility]) Diastolic blood pressure 79 mm[Hg] 79 mm[Hg] [facility] ([facility]) Systolic blood pressure 148 mm[Hg] 148 mm[Hg] A THENA ([facility]) Body height 72 [in_i] 72 [in_i] [facility] ([facility]) Diastolic blood pressure 79 mm[Hg] 79 mm[Hg] ETHAN ([facility]) Systolic blood pressure 148 mm[Hg] 148 mm[Hg] A THENA ([facility]) Body height 72 [in_i] 72 [in_i] ETHAN ([facility]) Diastolic blood pressure 79 mm[Hg] 79 mm[Hg] ETHAN ([facility]) Diastolic blood pressure 68 mm[Hg] 68 mm[Hg] DEEDEE ([facility]) Systolic blood pressure 150 mm[Hg] 150 mm[Hg] G REENWAY ([facility]) Diastolic blood pressure 84 mm[Hg] 84 mm[Hg] DEEDEE ([facility]) repeat BP Systolic blood pressure 158 mm[Hg] 158 mm[Hg] G REENWAY ([facility]) repeat BP Inhaled oxygen concentration 21 % 21 % [place] ([facility]) Inhaled oxygen flow rate 0 L/min 0 L/min DE[place] ([facility]) Oxygen saturation in Arterial blood by Pulse oximetry 98 % 98 % [place] ([facility]) PhenX - pain, abdominal - type and intensity protocol 7 7 [place] ([facility]) Body surface area Derived from formula 2.19 m2 2.19 m2 [place] ([facility]) Body mass index (BMI) [Ratio] 31.6 kg/m2 31.6 k g/m2 DEEDEE ([facility]) Body weight 222 [lb_av] 222 [lb_av] [facility] Body height 70.25 [in_i] 70.25 [in_i] DEEDEE ([facility]) Body temperature 96.9 [degF] 96.9 [degF] [place]) Respiratory rate 18 /min 18 /min [place] ([facility]) Heart rate rhythm 1 1 [place] ([facility]) Heart rate 71 /min 71 /min DEEDEE ([facility]) Diastolic blood pressure 90 mm[Hg] 90 mm[Hg] DEEDEE ([facility]) Systolic blood pressure 164 mm[Hg] 164 mm[Hg] G KRISTY ([facility]) Body height 72 [in_i] 72 [in_i] ETHAN ([facility]) Body height 72 [in_i] 72 [in_i] ETHAN ([facility]) Body height 72 [in_i] 72 [in_i] ETHAN ([facility]) Body height 72 [in_i] 72 [in_i] ETHAN ([facility]) Body height 72 [in_i] 72 [in_i] ETHAN ([facility]) Body height 72 [in_i] 72 [in_i] ETHAN ([facility]) Body height 72 [in_i] 72 [in_i] ETHAN ([facility]) Diastolic blood pressure--sitting 78 mm[Hg] 78 mm[Hg] MEDENT ([facility]) Omron adult cuff, [place] Systolic blood pressure--sitting 151 mm[Hg] 151 mm[Hg] MEDENT ([facility]) Omron adult cuff, [place] Heart rate 87 /min 87 /min MEDENT ([facility] Body mass index (BMI) [Ratio] 30.0 kg/m2 30.0 k g/m2 MEDENT ([facility]) Body height 72 [in_i] 72 [in_i] MEDENT ([facility]) 6'0" Body weight 221.00 [lb_av] 221.00 [lb_av] MEDEN T ([facility]) Body temperature 36.9 jerilyn Normal (applies to non-numeric results) 36.9 jerilyn [facility] Respiratory rate 18 min Normal (applies to non-numeric results) 18 min [facility] Body height 182.88 cm Normal (applies to non-numeric resu lts) 182.88 cm [facility] Heart rate 83 min Normal (applies to non-numeric resul ts) 83 min [facility] Diastolic blood pressure 89 mm[Hg] Normal (applies to non-numeric results) 89 mm[Hg] [facility] Systolic blood pressure 156 mm[Hg] Normal (applies t o non-numeric results) 156 mm[Hg] [facility] Deprecated Oxygen saturation in Capillary blood by Oximetry 97 % Normal (applies to non-numeric results) 97 % [facility] Inhaled oxygen concentration 40 % Normal (appl ies to non-numeric results) 40 % [facility] Body mass index (BMI) [Ratio] 33.9 kg/m2 No rmal (applies to non-numeric results) 33.9 kg/m2 [facility] Body weight Measured 250 [lb_av] Normal (applies to n on-numeric results) 250 [lb_av] [facility] Diastolic blood pressure 88 mm[Hg] 88 mm[Hg] [place] ([facility]) repeat BP Systolic blood pressure 164 mm[Hg] 164 mm[Hg] [facility]) repeat BP Diastolic blood pressure 88 mm[Hg] 88 mm[Hg] [place] ([facility]) repeat BP Systolic blood pressure 154 mm[Hg] 154 mm[Hg] [facility] ([facility]) repeat BP Inhaled oxygen concentration 21 % 21 % [place] ([facility]) temperature taken by Murtaza Valladares LPN Inhaled oxygen flow rate 0 L/min 0 L/min [place] ([facility]) temperature taken by Murtaza Valladares LPN Oxygen saturation in Arterial blood by Pulse oximetry 97 % 97 % [place] ([facility]) temperature taken by Murtaza Valladares LPN PhenX - pain, abdominal - type and intensity protocol 5 5 [place] ([facility]) temperature taken by Murtaza Valladares LPN Body weight 257 [lb_av] 257 [lb_av] [place] ([facility]) temperature taken by Murtaza Valladares LPN Body temperature 98.4 [degF] 98.4 [degF] [facility] ([facility]) temperature taken by Murtaza Valladares LPN Respiratory rate 18 /min 18 /min [place] ([facility]) temperature taken by Murtaza Valladares LPN Heart rate rhythm 1 1 [place] ([facility]) temperature taken by Murtaza Valladares LPN Heart rate 91 /min 91 /min DEEDEE ([facility]) temperature taken by Murtaza Valladares LPN Diastolic blood pressure 92 mm[Hg] 92 mm[Hg] [place] ([facility]) temperature taken by Murtaza Valladares LPN Systolic blood pressure 160 mm[Hg] 160 mm[Hg] G REENWAY ([facility]) temperature taken by Murtaza Valladares LPN Body weight 207 [lb_av] 207 [lb_av] ETHAN ([facility]) Systolic blood pressure 134 mm[Hg] 134 mm[Hg] A THENA ([facility]) Body mass index (BMI) [Ratio] 28.1 kg/m2 28.1 k g/m2 ETHAN ([facility]) Body height 72 [in_i] 72 [in_i] ETHAN ([facility]) Diastolic blood pressure 79 mm[Hg] 79 mm[Hg] ETHAN ([facility]) Body weight 207 [lb_av] 207 [lb_av] ETHAN ([facility]) Systolic blood pressure 134 mm[Hg] 134 mm[Hg] A THENA ([facility]) Body mass index (BMI) [Ratio] 28.1 kg/m2 28.1 k g/m2 ETHAN ([facility]) Body height 72 [in_i] 72 [in_i] ETHAN ([facility]) Diastolic blood pressure 79 mm[Hg] 79 mm[Hg] ETHAN ([facility]) Body weight 207 [lb_av] 207 [lb_av] ETHAN ([facility]) Systolic blood pressure 134 mm[Hg] 134 mm[Hg] A THENA ([facility]) Body mass index (BMI) [Ratio] 28.1 kg/m2 28.1 k g/m2 ETHAN ([facility]) Body height 72 [in_i] 72 [in_i] ETHAN ([facility]) Diastolic blood pressure 79 mm[Hg] 79 mm[Hg] ETHAN ([facility]) Body weight 207 [lb_av] 207 [lb_av] ETHAN ([facility]) Systolic blood pressure 134 mm[Hg] 134 mm[Hg] A THENA ([facility]) Body mass index (BMI) [Ratio] 28.1 kg/m2 28.1 k g/m2 ETHAN ([facility]) Body height 72 [in_i] 72 [in_i] ETHAN ([facility]) Diastolic blood pressure 79 mm[Hg] 79 mm[Hg] ETHAN ([facility]) Body weight 207 [lb_av] 207 [lb_av] ETHAN ([facility]) Systolic blood pressure 134 mm[Hg] 134 mm[Hg] A THENA ([facility]) Body mass index (BMI) [Ratio] 28.1 kg/m2 28.1 k g/m2 ETHAN ([facility]) Body height 72 [in_i] 72 [in_i] ETHAN ([facility]) Diastolic blood pressure 79 mm[Hg] 79 mm[Hg] ETHAN ([facility]) Body weight 207 [lb_av] 207 [lb_av] ETHAN ([facility]) Systolic blood pressure 134 mm[Hg] 134 mm[Hg] A THENA ([facility]) Body mass index (BMI) [Ratio] 28.1 kg/m2 28.1 k g/m2 ETHAN ([facility]) Body height 72 [in_i] 72 [in_i] ETHAN ([facility]) Diastolic blood pressure 79 mm[Hg] 79 mm[Hg] ETHAN ([facility]) Body weight 207 [lb_av] 207 [lb_av] ETHAN ([facility]) Systolic blood pressure 134 mm[Hg] 134 mm[Hg] A THENA ([facility]) Body mass index (BMI) [Ratio] 28.1 kg/m2 28.1 k g/m2 ETHAN ([facility]) Body height 72 [in_i] 72 [in_i] ETHAN ([facility]) Diastolic blood pressure 79 mm[Hg] 79 mm[Hg] ETHAN ([facility]) Body weight 207 [lb_av] 207 [lb_av] ETHAN ([facility]) Systolic blood pressure 134 mm[Hg] 134 mm[Hg] A THENA ([facility]) Body mass index (BMI) [Ratio] 28.1 kg/m2 28.1 k g/m2 ETHAN ([facility]) Body height 72 [in_i] 72 [in_i] ETHAN ([facility]) Diastolic blood pressure 79 mm[Hg] 79 mm[Hg] ETHAN ([facility]) Body weight 207 [lb_av] 207 [lb_av] ETHAN ([facility]) Systolic blood pressure 134 mm[Hg] 134 mm[Hg] A THENA ([facility]) Body mass index (BMI) [Ratio] 28.1 kg/m2 28.1 k g/m2 ETHAN ([facility]) Body height 72 [in_i] 72 [in_i] ETHAN ([facility]) Diastolic blood pressure 79 mm[Hg] 79 mm[Hg] ETHAN ([facility]) Body weight 207 [lb_av] 207 [lb_av] ETHAN ([facility]) Systolic blood pressure 134 mm[Hg] 134 mm[Hg] A THENA ([facility]) Body mass index (BMI) [Ratio] 28.1 kg/m2 28.1 k g/m2 ETHAN ([facility]) Body height 72 [in_i] 72 [in_i] ETHAN ([facility]) Diastolic blood pressure 79 mm[Hg] 79 mm[Hg] ETHAN ([facility]) Inhaled oxygen concentration 21 % 21 % [place] ([facility] Inhaled oxygen flow rate 0 L/min 0 L/min [place] ([facility]) Oxygen saturation in Arterial blood by Pulse oximetry 98 % 98 % [place] ([facility]) PhenX - pain, abdominal - type and intensity protocol 9 9 [place] ([facility]) Body weight 210 [lb_av] 210 [lb_av] [place] ([facility]) Body temperature 97.2 [degF] 97.2 [degF] [place] ([facility]) Respiratory rate 20 /min 20 /min [place] ([facility]) Heart rate rhythm 1 1 [place] ([facility]) Heart rate 84 /min 84 /min [facility] Diastolic blood pressure 78 mm[Hg] 78 mm[Hg] DEED[place] ([facility]) Systolic blood pressure 130 mm[Hg] 130 mm[Hg] G REENWAY ([facility]) Body weight 207 [lb_av] 207 [lb_av] ETHAN ([facility]) Systolic blood pressure 121 mm[Hg] 121 mm[Hg] A THENA ([facility]) Body mass index (BMI) [Ratio] 28.1 kg/m2 28.1 k g/m2 ETHAN ([facility]) Body height 72 [in_i] 72 [in_i] ETHAN ([facility]) Diastolic blood pressure 79 mm[Hg] 79 mm[Hg] ETHAN ([facility]) Body weight 207 [lb_av] 207 [lb_av] ETHAN ([facility]) Systolic blood pressure 121 mm[Hg] 121 mm[Hg] A THENA ([facility]) Body mass index (BMI) [Ratio] 28.1 kg/m2 28.1 k g/m2 ETHAN ([facility]) Body height 72 [in_i] 72 [in_i] ETHAN ([facility]) Diastolic blood pressure 79 mm[Hg] 79 mm[Hg] ETHAN ([facility]) Body weight 207 [lb_av] 207 [lb_av] ETHAN ([facility]) Systolic blood pressure 121 mm[Hg] 121 mm[Hg] A THENA ([facility]) Body mass index (BMI) [Ratio] 28.1 kg/m2 28.1 k g/m2 ETHAN ([facility]) Body height 72 [in_i] 72 [in_i] ETHAN ([facility]) Diastolic blood pressure 79 mm[Hg] 79 mm[Hg] ETHAN ([facility]) Body weight 207 [lb_av] 207 [lb_av] ETHAN ([facility]) Systolic blood pressure 121 mm[Hg] 121 mm[Hg] A THENA ([facility]) Body mass index (BMI) [Ratio] 28.1 kg/m2 28.1 k g/m2 ETHAN ([facility]) Body height 72 [in_i] 72 [in_i] ETHAN ([facility]) Diastolic blood pressure 79 mm[Hg] 79 mm[Hg] ETHAN ([facility]) Body weight 207 [lb_av] 207 [lb_av] ETHAN ([facility]) Systolic blood pressure 121 mm[Hg] 121 mm[Hg] A THENA ([facility]) Body mass index (BMI) [Ratio] 28.1 kg/m2 28.1 k g/m2 ETHAN ([facility]) Body height 72 [in_i] 72 [in_i] ETHAN ([facility]) Diastolic blood pressure 79 mm[Hg] 79 mm[Hg] ETHAN ([facility]) Body weight 207 [lb_av] 207 [lb_av] ETHAN ([facility]) Systolic blood pressure 121 mm[Hg] 121 mm[Hg] A THENA ([facility]) Body mass index (BMI) [Ratio] 28.1 kg/m2 28.1 k g/m2 ETHAN ([facility]) Body height 72 [in_i] 72 [in_i] ETHAN ([facility]) Diastolic blood pressure 79 mm[Hg] 79 mm[Hg] ETHAN ([facility]) Body weight 207 [lb_av] 207 [lb_av] ETHAN ([facility]) Systolic blood pressure 121 mm[Hg] 121 mm[Hg] A THENA ([facility]) Body mass index (BMI) [Ratio] 28.1 kg/m2 28.1 k g/m2 ETHAN ([facility]) Body height 72 [in_i] 72 [in_i] ETHAN ([facility]) Diastolic blood pressure 79 mm[Hg] 79 mm[Hg] ETHAN ([facility]) Body weight 207 [lb_av] 207 [lb_av] ETHAN ([facility]) Systolic blood pressure 121 mm[Hg] 121 mm[Hg] A THENA ([facility]) Body mass index (BMI) [Ratio] 28.1 kg/m2 28.1 k g/m2 ETHAN ([facility]) Body height 72 [in_i] 72 [in_i] ETHAN ([facility]) Diastolic blood pressure 79 mm[Hg] 79 mm[Hg] ETHAN ([facility]) Body weight 207 [lb_av] 207 [lb_av] ETHAN ([facility]) Systolic blood pressure 121 mm[Hg] 121 mm[Hg] A THENA ([facility]) Body mass index (BMI) [Ratio] 28.1 kg/m2 28.1 k g/m2 ETHAN ([facility]) Body height 72 [in_i] 72 [in_i] ETHAN ([facility]) Diastolic blood pressure 79 mm[Hg] 79 mm[Hg] ETHAN ([facility]) Body weight 207 [lb_av] 207 [lb_av] ETHAN ([facility]) Systolic blood pressure 121 mm[Hg] 121 mm[Hg] A THENA ([facility]) Body mass index (BMI) [Ratio] 28.1 kg/m2 28.1 k g/m2 ETHAN ([facility]) Body height 72 [in_i] 72 [in_i] ETHAN ([facility]) Diastolic blood pressure 79 mm[Hg] 79 mm[Hg] ETHAN ([facility]) Body weight 207 [lb_av] 207 [lb_av] ETHAN ([facility]) Systolic blood pressure 121 mm[Hg] 121 mm[Hg] A THENA ([facility]) Body mass index (BMI) [Ratio] 28.1 kg/m2 28.1 k g/m2 ETHAN ([facility]) Body height 72 [in_i] 72 [in_i] ETHAN ([facility]) Diastolic blood pressure 79 mm[Hg] 79 mm[Hg] ETHAN ([facility]) Respiratory rate 16 /min 16 /min MEDENT ( [facility]) Heart rate 118 /min 118 /min MEDENT ([facility]) Diastolic blood pressure 86 mm[Hg] 86 mm[Hg] MEDENT ([facility]) Systolic blood pressure 128 mm[Hg] 128 mm[Hg] M EDENT ([facility]) Body mass index (BMI) [Ratio] 27.8 kg/m2 27.8 k g/m2 MEDENT ([facility]) Body weight 205.00 [lb_av] 205.00 [lb_av] MEDEN T ([facility]) Body height 72 [in_i] 72 [in_i] MEDENT ([facility]) 6'0" Inhaled oxygen concentration 21 % 21 % [place] ([facility]) Inhaled oxygen flow rate 0 L/min 0 L/min [place] ([facility]) Oxygen saturation in Arterial blood by Pulse oximetry 96 % 96 % [place] ([facility]) PhenX - pain, abdominal - type and intensity protocol 8 8 [place] ([facility]) Body weight 207 [lb_av] 207 [lb_av] [facility] Body temperature 98.3 [degF] 98.3 [degF] [facility] ([facility]) Respiratory rate 22 /min 22 /min [place] ([facility]) Heart rate 107 /min 107 /min [place] ([facility]) Diastolic blood pressure 94 mm[Hg] 94 mm[Hg] [place] ([facility]) Systolic blood pressure 146 mm[Hg] 146 mm[Hg] [facility] Patient Treatment Plan of Care Planned Activity Planned Date Details Description Data Source (s) Hydrochlorothiazide 12.5 MG Oral Tablet 05/05/2020 12:00:00 AM [facility] ([facility]) 24 HR trandolapril 4 MG / Verapamil hydr ochloride 240 MG Extended Release Oral Tablet [Tarka] 05/05/2020 12:00:00 AM [facility] ([facility]) Hydrochlorothiazide 12.5 MG Oral Tablet 12/01/2019 12:00:00 AM [facility] ([facility]) glimepiride 2 MG Oral Tablet 10/08/2019 12:00:00 AM [facility] ([facility]) Clonidine Hydrochloride 0.1 MG Oral Tablet 09/08/2019 12:00:[address] [place] ([facility]) Ondansetron 4 MG Disintegrating Oral Tablet 09/08/2019 12:00:00 AM EST [place] ([facility]) Hydrochlorothiazide 12.5 MG Oral Tablet 01/15/2019 12:00:00 AM [facility] ([facility]) 24 HR trandolapril 4 MG / Verapamil hydr ochloride 240 MG Extended Release Oral Tablet [Tarka] 01/15/2019 12:00:00 AM [facility] ([facility]) Mupirocin 0.02 MG/MG Topical Ointment 01/14/2019 12:00:00 AM EDT [place] [facility] Methadone Hydrochloride 10 MG Oral Tablet 10/31/2018 12:00:00 AM ED T [place] ([facility]) 24 HR Metformin hydrochloride 500 MG Extended Release Oral Tablet 10/01/2018 12:00:00 AM EST [place] ([facility]) Capsaicin 0.25 MG/ML Topical Cream 10/01/2018 12:00:00 AM EST [place] ([facility]) Fish Oil 1000 MG OR CAPS 02/09/2011 12:00:00 AM EDT [place] ([facility]) Spironolactone 100 MG Oral Tablet ETHAN ([facility]) 12 HR Oxycodone Hydrochloride 10 MG Extended Release Oral Ta b[place] [Oxycontin] ETHAN ([facility]) Morphine Sulfate 15 MG Extended Release Oral Tablet ETHAN ([facility]) Methadone Hydrochloride 5 MG Oral Tablet ETHAN ([facility]) Methadone Hydrochloride 10 MG Oral Tablet ETHAN ([facility]) glimepiride 2 MG Oral Tablet ETHAN ([facility]) duloxetine 30 MG Delayed Release Oral Capsule ETHAN ([facility]) doxycycline hyclate 100 MG Oral Capsule ETHAN ([facility]) Diazepam 5 MG Oral Tablet AT JARRET ([facility]) Aspirin 81 MG Chewable Tablet ETHAN ([facility]) 24 HR trandolapril 4 MG / Verapamil hydr ochloride 240 MG Extended Release Oral Tablet [facility]AN [facility] Spironolactone 100 MG Oral Tablet ETHAN ([facility]) 12 HR Oxycodone Hydrochloride 10 MG Extended Release Oral Ta blet [Oxycontin] ETHAN ([facility]) Morphine Sulfate 15 MG Extended Release Oral Tablet ETHAN ([facility]) Methadone Hydrochloride 5 MG Oral Tablet ETHAN ([facility]) Methadone Hydrochloride 10 MG Oral Tablet ETHAN ([facility]) glimepiride 2 MG Oral Tablet ETHAN ([facility]) duloxetine 30 MG Delayed Release Oral Capsule ETHAN ([facility]) doxycycline hyclate 100 MG Oral Capsule ETHAN ([facility]) Diazepam 5 MG Oral Tablet AT JARRET ([facility]) Aspirin 81 MG Chewable Tablet ETHAN ([facility]) Methadone Hydrochloride 5 MG Oral Tablet ETHAN ([facility]) Methadone Hydrochloride 10 MG Oral Tablet ETHAN ([facility]) Diazepam 5 MG Oral Tablet AT JARRET ([facility]) Methadone Hydrochloride 5 MG Oral Tablet ETHAN ([facility]) Methadone Hydrochloride 10 MG Oral Tablet ETHAN ([facility]) Diazepam 5 MG Oral Tablet AT JARRET ([facility]) Methadone Hydrochloride 5 MG Oral Tablet ETHAN ([facility]) Methadone Hydrochloride 10 MG Oral Tablet ETHAN ([facility]) Diazepam 5 MG Oral Tablet AT JARRET ([facility]) Diazepam 5 MG Oral Tablet AT JARRET ([facility]) Diazepam 5 MG Oral Tablet AT JARRET ([facility]) Diazepam 5 MG Oral Tablet AT JARRET ([facility]) 168 HR Buprenorphine 0.005 MG/HR Transdermal Patch ETHAN ([facility]) Amitriptyline Hydrochloride 25 MG Oral Tablet ETHAN ([facility]) Diazepam 5 MG Oral Tablet AT JARRET ([facility]) 168 HR Buprenorphine 0.005 MG/HR Transdermal Patch ETHAN ([facility]) Amitriptyline Hydrochloride 25 MG Oral Tablet ETHAN ([facility]) Diazepam 5 MG Oral Tablet AT JARRET ([facility]) Amitriptyline Hydrochloride 25 MG Oral Tablet ETHAN ([facility]) Diazepam 5 MG Oral Tablet AT JARRET ([facility] [facility]) Amitriptyline Hydrochloride 25 MG Oral Tablet [facility] ([facility])
[2020-09-16] MEDS ORDERED: OXYC10TA12 PO (14:46)
[2020-09-16] MEDS ORDERED: NS 1,000 ML IV ONE (15:15)
[2020-09-16 15:29] LABS: BASO # 0.1 10^3/uL (0.0-0.2); EOS # 0.2 10^3/uL (0.0-0.5); EOS % 1.8 % (0.0-3.0); HEMATOCRIT 36.5 % (42.0-52.0); HEMOGLOBIN 12.4 g/dl (13.5-17.5); LYMPH # 1.8 10^3/uL (1.5-5.0); LYMPH % 16.5 % (24.0-44.0); MEAN CORPUSCULAR HEMOGLOBIN 32.5 pg (27.0-33.0); MEAN CORPUSCULAR VOLUME 95.8 fl (80.0-96.0); MONO # 1.1 10^3/uL (0.0-0.8); NEUTROPHILS # 7.8 10^3/uL (1.5-8.5); NEUTROPHILS % 69.6 % (36.0-66.0); PLATELET COUNT, AUTOMATED 104 10^3/uL (150-450); RED BLOOD COUNT 3.81 10^6/uL (4.30-6.10); WHITE BLOOD COUNT 11.1 10^3/uL (4.0-10.0)
--- OUTSIDE RECORDS SUMMARY | 2020-09-16 15:33 | CCD ---
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 Name Role Phone Trevor Beckman MD Unavailable Unavailable Trevor Beckman [...] Unavailable Trevor Beckman MD Unavailable Unavailable Trevor Becmkan MD Unavailable Unavailable Trevor Beckman MD Unavailable [...] Javi MD Unavailable Unavailable Shaben, E Katja CLERICAL ADJUSTER Unavailable Unavailable Shaben, E Katja CLERICAL ADJUSTER Unavailable Unavailable Shaben, E Katja CLERICAL ADJUSTER Unavailable Unavailable Shaben, E Katja CLERICAL ADJUSTER Unavailable Unavailable Shaben, E Katja CLERICAL ADJUSTER Unavailable Unavailable Shaben, E Katja CLERICAL ADJUSTER Unavailable Unavailable Shaben, E Katja CLERICAL ADJUSTER Unavailable Unavailable Shaben, E Katja CLERICAL ADJUSTER Unavailable Unavailable Shaben, E Katja CLERICAL ADJUSTER Unavailable Unavailable Shaben, E Katja CLERICAL ADJUSTER Unavailable Unavailable Shaben, E Katja CLERICAL ADJUSTER Unavailable Unavailable Shaben, E Katja CLERICAL ADJUSTER Unavailable Unavailable Shaben, E Katja CLERICAL ADJUSTER Unavailable Unavailable Shaben, E Katja CLERICAL ADJUSTER Unavailable Unavailable Shaben, E Katja CLERICAL ADJUSTER Unavailable Unavailable Shaben, E Katja CLERICAL ADJUSTER Unavailable Unavailable Shaben, E Katja CLERICAL ADJUSTER Unavailable Unavailable Shaben, E Katja CLERICAL ADJUSTER Unavailable Unavailable Shaben, E Katja CLERICAL ADJUSTER Unavailable Unavailable Shaben, E Katja CLERICAL ADJUSTER Unavailable Unavailable Shaben, E Katja CLERICAL ADJUSTER Unavailable Unavailable Shaben, E Katja CLERICAL ADJUSTER Unavailable Unavailable Shaben, E Katja CLERICAL ADJUSTER Unavailable Unavailable Shaben, E Katja CLERICAL ADJUSTER Unavailable Unavailable Kanagala, Jennifer V, JENNIFER Unavailable [...] PHYSICIAN ER Unavailable Unavailable Lon, L Shelyta CLERICAL ADJUSTER Unavailable Unavailable Lon, L Shelyta CLERICAL ADJUSTER Unavailable Unavailable Lon, L Shelyta CLERICAL ADJUSTER Unavailable Unavailable Lon, L Shelyta CLERICAL ADJUSTER Unavailable Unavailable Lon, L Shelyta CLERICAL ADJUSTER Unavailable Unavailable Lon, L Shelyta CLERICAL ADJUSTER Unavailable Unavailable Lon, L Shelyta CLERICAL ADJUSTER Unavailable Unavailable Lon, L Shelyta CLERICAL ADJUSTER Unavailable Unavailable Lon, L Shelyta CLERICAL ADJUSTER Unavailable Unavailable Lon, L Shelyta CLERICAL ADJUSTER Unavailable Unavailable Lon, L Shelyta CLERICAL ADJUSTER Unavailable Unavailable Lon, L Shelyta CLERICAL ADJUSTER Unavailable Unavailable Lon, L Shelyta CLERICAL ADJUSTER Unavailable Unavailable Lon, L Shelyta CLERICAL ADJUSTER Unavailable Unavailable Lon, L Shelyta CLERICAL ADJUSTER Unavailable Unavailable Lon, L Shelyta CLERICAL ADJUSTER Unavailable Unavailable Lon, L Shelyta CLERICAL ADJUSTER Unavailable Unavailable Lon, L Shelyta CLERICAL ADJUSTER Unavailable Unavailable Lon, L Shelyta CLERICAL ADJUSTER Unavailable Unavailable Lon, L Shelyta CLERICAL ADJUSTER Unavailable Unavailable Lon, L Shelyta CLERICAL ADJUSTER Unavailable Unavailable Lon, L Shelyta CLERICAL ADJUSTER Unavailable Unavailable Lon, L Shelyta CLERICAL ADJUSTER Unavailable Unavailable Lon, L Shelyta CLERICAL ADJUSTER Unavailable Unavailable Leonidas Ervin MD Unavailable Unavailable Leonidas Erivn MD Unavailable Unavailable Leonidas Ervin MD Unavailable [...] Unavailable Leonidas Ervin MD Unavailable Unavailable Leonidas rEvin MD Unavailable Unavailable Leonidas Ervin MD Unavailable Unavailable ErvinLeonidas munoz MD Unavailable Unavailable Leonidas Ervin MD Unavailable Unavailable Leonidas Ervin MD Unavailable Unavailable Leonidas Ervin MD Unavailable Unavailable Leonidas Ervin MD Unavailable Unavailable Leondias Ervin MD Unavailable Unavailable Leonidas Ervin MD [...] Mikey RPA-C Unavailable Unavailable KAHLIL, L KATHLEEN [employer] FRENCH TEACHER Unavailable Unavailable KAHLIL, L KATHLEEN [employer] FRENCH TEACHER Unavailable Unavailable KAHLIL, L KATHLEEN [employer] FRENCH TEACHER Unavailable Unavailable KAHLIL, L KATHLEEN [employer] FRENCH TEACHER Unavailable Unavailable KAHLIL, L KATHLEEN [employer] FRENCH TEACHER Unavailable Unavailable KAHLIL, L KATHLEEN [employer] FRENCH TEACHER Unavailable Unavailable KAHLIL, L KATHLEEN [employer] FRENCH TEACHER Unavailable Unavailable KAHLIL, L KATHLEEN [employer] FRENCH TEACHER Unavailable Unavailable KAHLIL, L KATHLEEN [employer] FRENCH TEACHER Unavailable Unavailable KAHLIL, L KATHLEEN [employer] FRENCH TEACHER Unavailable Unavailable KAHLIL, L KATHLEEN [employer] FRENCH TEACHER Unavailable Unavailable KAHLIL, L KATHLEEN [employer] FRENCH TEACHER Unavailable Unavailable KAHLIL, L KATHLEEN [employer] FRENCH TEACHER Unavailable Unavailable KAHLIL, L KATHLEEN [employer] FRENCH TEACHER Unavailable Unavailable KAHLIL, L KATHLEEN [employer] FRENCH TEACHER Unavailable Unavailable KAHLIL, L KATHLEEN [employer] FRENCH TEACHER Unavailable Unavailable KAHLIL, L KATHLEEN [employer] FRENCH TEACHER Unavailable Unavailable KAHLIL, L KATHLEEN [employer] FRENCH TEACHER Unavailable Unavailable KAHLIL, L KATHLEEN [employer] FRENCH TEACHER Unavailable Unavailable KAHLIL, L KATHLEEN [employer] FRENCH TEACHER Unavailable Unavailable KAHLIL, L KATHLEEN [employer] FRENCH TEACHER Unavailable Unavailable KAHLIL, L KATHLEEN [employer] FRENCH TEACHER Unavailable Unavailable KAHLIL, L KATHLEEN [employer] FRENCH TEACHER Unavailable Unavailable KAHLIL, L KATHLEEN [employer] FRENCH TEACHER Unavailable Unavailable KAHLIL, L KATHLEEN [employer]CHO[employer] FRENCH TEACHER Unavailable Unavailable KAHLIL, L KATHLEEN [employer]CHO[employer] FRENCH TEACHER Unavailable Unavailable KAHLIL, L KATHLEEN [employer] FRENCH TEACHER Unavailable Unavailable KAHLIL, L KATHLEEN [employer] FRENCH TEACHER Unavailable Unavailable KAHLIL, L KATHLEEN MIDD[employer] FRENCH TEACHER Unavailable Unavailable KAHLIL, L KATHLEEN MID[employer] FRENCH TEACHER Unavailable Unavailable KAHLIL, L KATHLEEN MID[employer] FRENCH TEACHER Unavailable Unavailable KAHLIL, L KATHLEEN MIDD[employer] SCHO[employer] FRENCH TEACHER Unavailable Unavailable KAHLIL, L KATHLEEN MID[employer] FRENCH TEACHER Unavailable Unavailable KAHLIL, L KATHLEEN MIDD[employer]CHO[employer] FRENCH TEACHER Unavailable Unavailable KAHLIL, L KATHLEEN MIDD[employer]CHOOL FRENCH TEACHER Unavailable Unavailable CELESTINA EDWARDS MD Unavailable Unavailable [...] Pancho HURLEY MD Unavailable Unavailable ANTECOL, Pancho HURLYE MD Unavailable Unavailable ANTECOL, Pancho HURLEY MD [...] HURLEY MD Unavailable Unavailable Jumalon, M Laverne CLERICAL ADJUSTER Unavailable Unavailable Jumalon, M Laverne CLERICAL ADJUSTER Unavailable Unavailable Jumalon, M Laverne CLERICAL ADJUSTER Unavailable Unavailable Jumalon, M Laverne CLERICAL ADJUSTER Unavailable Unavailable Jumalon, M Laverne CLERICAL ADJUSTER Unavailable Unavailable Jumalon, M Laverne CLERICAL ADJUSTER Unavailable Unavailable Jumalon, M Laverne CLERICAL ADJUSTER Unavailable Unavailable Jumalon, M Laverne CLERICAL ADJUSTER Unavailable Unavailable Jumalon, M Laverne CLERICAL ADJUSTER Unavailable Unavailable Jumalon, M Laverne CLERICAL ADJUSTER Unavailable Unavailable Jumalon, M Laverne CLERICAL ADJUSTER Unavailable Unavailable Jumalon, M Laverne CLERICAL ADJUSTER Unavailable Unavailable Jumalon, M Laverne CLERICAL ADJUSTER Unavailable Unavailable Jumalon, M Laverne CLERICAL ADJUSTER Unavailable Unavailable Jumalon, M Laverne CLERICAL ADJUSTER Unavailable Unavailable Jumalon, M Laverne CLERICAL ADJUSTER Unavailable Unavailable Jumalon, M Laverne CLERICAL ADJUSTER Unavailable Unavailable Jumalon, M Laverne CLERICAL ADJUSTER Unavailable Unavailable Jumalon, M Laverne CLERICAL ADJUSTER Unavailable Unavailable Jumalon, M Laverne CLERICAL ADJUSTER Unavailable Unavailable Jumalon, M Laverne CLERICAL ADJUSTER Unavailable Unavailable Jumalon, M Laverne CLERICAL ADJUSTER Unavailable Unavailable Jumalon, M Laverne CLERICAL ADJUSTER Unavailable Unavailable Jumalon, M Laverne CLERICAL ADJUSTER Unavailable Unavailable Jumalon, M Laverne CLERICAL ADJUSTER Unavailable Unavailable Jumalon, M Laverne CLERICAL ADJUSTER Unavailable Unavailable Jumalon, M Laverne CLERICAL ADJUSTER Unavailable Unavailable Jumalon, M Laverne CLERICAL ADJUSTER Unavailable Unavailable PHYSICIAN, ER Unavailable Unavailable GIA, KATJA PARKER [employer]CHO[employer] FRENCH TEACHER Unavailable Unavaila ble GIA, KATJA PARKER [employer] FRENCH TEACHER Unavailable Unavaila ble GIA, KATJA PARKER [employer] FRENCH TEACHER Unavailable Unavaila ble SAEED-JENSEN, TARYN [employer] SCHOOL FRENCH TEACHER Unavailable Unavaila ble SAEED-JENSEN, KATJA PARKER [employer] FRENCH TEACHER Unavailable Unavaila ble SAEED-JENSEN, KATJA PARKER [employer]CHO[employer] FRENCH TEACHER Unavailable Unavaila ble SAEED-JENSEN, KATJA PARKER [employer] SCHO[employer] FRENCH TEACHER Unavailable Unavaila ble SAEED-JENSEN, KATJA PARKER [employer] SCHO[employer] FRENCH TEACHER Unavailable Unavaila ble SAEED-JENSEN, KATJA PARKER [employer] SCHO[employer] FRENCH TEACHER Unavailable Unavaila ble SAEED-JENSEN, KATJA PARKER [employer] SCHO[employer] FRENCH TEACHER Unavailable Unavaila ble SAEED-JENSEN, KATJA PARKER [employer] SCHO[employer] FRENCH TEACHER Unavailable Unavaila ble SAEED-JENSEN, KATJA PARKER [employer] SCHO[employer] FRENCH TEACHER Unavailable Unavaila ble SAEED-JENSEN, KATJA PARKER [employer] SCHO[employer] FRENCH TEACHER Unavailable Unavaila ble SAEED-JENSEN, KATJA PARKER [employer] SCHOOL FRENCH TEACHER Unavailable Unavaila ble SAEED-JENSEN, KATJA PARKER MIDD[employer] SCHOOL FRENCH TEACHER Unavailable Unavaila ble SAEED-JENSEN, KATJA PARKER [employer] SCHOOL FRENCH TEACHER Unavailable Unavaila ble SAEED-JENSEN, KATJA PARKER MIDD[employer] SCHOOL FRENCH TEACHER Unavailable Unavaila ble SAEED-JENSEN, KATJA PARKER [employer] SCHOOL FRENCH TEACHER Unavailable Unavaila ble SAEED-JENSEN, KATJA PARKER [employer] SCHOOL FRENCH TEACHER Unavailable Unavaila ble SAEED-JENSEN, KATJA PARKER [employer] SCHOOL FRENCH TEACHER Unavailable Unavaila ble SAEED-JENSEN, KATJA PARKER MIDD[employer] SCHOOL FRENCH TEACHER Unavailable Unavaila ble SAEED-JENSEN, KATJA PARKER MID[employer] SCHOOL FRENCH TEACHER Unavailable Unavaila ble SAEED-JENSEN, KATJA PARKER [employer] SCHOOL FRENCH TEACHER Unavailable Unavaila ble SAEED-JENSEN, KATJA PARKER [employer] SCHOOL FRENCH TEACHER Unavailable Unavaila ble SAEED-JENSEN, KATJA PARKER MIDD[employer] SCHOOL FRENCH TEACHER Unavailable Unavaila ble SAEED-JENSEN, KATJA PARKER MIDD[employer] SCHOOL FRENCH TEACHER Unavailable Unavaila ble SAEED-JENSEN, KATJA PARKER MIDD[employer] SCHOOL FRENCH TEACHER Unavailable Unavaila ble SAEED-JENSEN, KATJA PARKER MIDD[employer] SCHOOL FRENCH TEACHER Unavailable Unavaila ble SAEED-JENSEN, KATJA PARKER MIDD[employer] SCHOOL FRENCH TEACHER Unavailable Unavaila ble SAEED-JENSEN, KATJA PARKER [employer] SCHOOL FRENCH TEACHER Unavailable Unavaila ble SAEED-JENSEN, KATJA PARKER MIDD[employer] SCHOOL FRENCH TEACHER Unavailable Unavaila ble SAEED-JENSEN, KATJA PARKER MIDD[employer] SCHOOL FRENCH TEACHER Unavailable Unavaila ble SAEED-JENSEN, KATJA PARKER MIDD[employer] SCHOOL FRENCH TEACHER Unavailable Unavaila ble SAEED-JENSEN, KATJA PARKER MID[employer] SCHOOL FRENCH TEACHER Unavailable Unavaila ble SAEED-JENSEN, KATJA PARKER MIDD[employer] SCHOOL FRENCH TEACHER Unavailable Unavaila ble SAEED-JENSEN, AKTJA PARKER [employer] SCHOOL FRENCH TEACHER Unavailable Unavaila ble SAEED-JENSEN, TARYN [employer]DLE SCHOOL FRENCH TEACHER Unavailable Unavaila ble SAEED-JENSEN, TARYN [employer] SCHOOL FRENCH TEACHER Unavailable Unavaila ble SAEED-JENSEN, TARYN MIDD[employer] SCHOOL FRENCH TEACHER Unavailable Unavaila ble SAEED-JENSEN, TARYN [employer] SCHOOL FRENCH TEACHER Unavailable Unavaila ble SAEED-JENSEN, TARYN [employer] SCHOOL FRENCH TEACHER Unavailable Unavaila ble SAEED-JENSEN, TARYN MIDD[employer] SCHOOL FRENCH TEACHER Unavailable Unavaila ble SAEED-JENSEN, TARYN MIDD[employer] SCHOOL FRENCH TEACHER Unavailable Unavaila ble SAEED-JENSEN, TARYN MIDD[employer] SCHOOL FRENCH TEACHER Unavailable Unavaila ble SAEED-JENSEN, TARYN [employer] SCHOOL FRENCH TEACHER Unavailable Unavaila ble SAEED-JENSEN, TARYN [employer]CHO[employer] FRENCH TEACHER Unavailable Unavaila ble Becca GARLAND MD Unavailable [...] RUBIA MD Unavailable Unavailable Shaben, E Katja CLERICAL ADJUSTER Unavailable Unavailable Shaben, E Katja CLERICAL ADJUSTER Unavailable Unavailable Shaben, E Katja CLERICAL ADJUSTER Unavailable Unavailable Shaben, E Katja CLERICAL ADJUSTER Unavailable Unavailable Shaben, E Katja CLERICAL ADJUSTER Unavailable Unavailable Shaben, E Katja CLERICAL ADJUSTER Unavailable Unavailable Shaben, E Katja CLERICAL ADJUSTER Unavailable Unavailable Shaben, E Katja CLERICAL ADJUSTER Unavailable Unavailable Shaben, E Katja CLERICAL ADJUSTER Unavailable Unavailable Shaben, E Katja CLERICAL ADJUSTER Unavailable Unavailable Shaben, E Katja CLERICAL ADJUSTER Unavailable Unavailable Shaben, E Katja CLERICAL ADJUSTER Unavailable Unavailable Shaben, E Katja CLERICAL ADJUSTER Unavailable Unavailable Shaben, E Katja CLERICAL ADJUSTER Unavailable Unavailable Shaben, E Katja CLERICAL ADJUSTER Unavailable Unavailable Shaben, E Katja CLERICAL ADJUSTER Unavailable Unavailable Shaben, E Katja CLERICAL ADJUSTER Unavailable Unavailable Shaben, E Katja CLERICAL ADJUSTER Unavailable Unavailable Shaben, E Katja CLERICAL ADJUSTER Unavailable Unavailable Shaben, E Katja CLERICAL ADJUSTER Unavailable Unavailable Shaben, E Katja CLERICAL ADJUSTER Unavailable Unavailable Shaben, E Katja CLERICAL ADJUSTER Unavailable Unavailable Shaben, E Katja CLERICAL ADJUSTER Unavailable Unavailable Shaben, E Katja CLERICAL ADJUSTER Unavailable Unavailable Re-disclosure Warning The records that [...] is protected by Article 27-F of the [facility] Public Health law. If you continue you may have access to information: Regarding HIV / AIDS; Provided by facilities licensed or operated by the [facility] Office of Mental Health; or Provided by the [facility] Office for People With Developmental Disabilities. If such information is present, then the following [facility] mandated warning applies: This information has been [...] further disc losure. 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 -NO packet given Pt Bill of Rights, Priv Prac, Ad Dir completed packet given Pt Bill of Rights, Priv Prac, Ad Dir [place] ([facility]) Note: Pt declined AD packet Ebola Screening Performed completed Ebol a Screening Performed [place] ([facility]) Note: Within the last month, have you tr aveled outside of the [place]? -NO Ebola Screening Performed completed Ebol a Screening Performed [place] ([facility]) Note: Within the last month, [...] Description Data Source(s) Unknown Female Problem MEDENT ([facility]) Encounters Encounter Providers Location Date Indications Data Source(s ) Outpatient Attender: DENNIS griffiths 08/04/2020 11:00:00 AM EST MEDENT ([facility]) Laverne [place], [employer]CHO[employer] FRENCH TEACHER: [address], [place] [address], Ph. Attender: Laverne Ho [facility] 07/28/2020 12:00:00 AM EST ATHE NA ([facility]) Lavernemoni Ho, [employer] FRENCH TEACHER: [address], [place] [address], Ph. Attender: Laverne [place] [facility] 06/29/2020 12:00:00 AM EST ATHE NA ([facility]) Laverne Ho, [employer] FRENCH TEACHER: [address], [place] [address], Ph. Attender: Laverne [place] [facility] 06/29/2020 12:00:00 AM EST ATHE NA ([facility]) Laverne Yeyo Ho, MID[employer] FRENCH TEACHER: [address], [place] [address], Ph. Attender: Laverne Ho CLERICAL ADJUSTER [place] - [facility] 06/01/2020 12:00:00 AM EST ATHE NA ([facility]) Laverne Ho, [employer] FRENCH TEACHER: [address], [place] [address], Ph. Attender: Laverne Ho [facility] - [facility] 06/01/2020 12:00:00 AM EST ATHE NA ([facility]) Laverne Ho, MID[employer] FRENCH TEACHER: [address], [place] [address], Ph. Attender: Laverne Poojakaylaalex [facility] 06/01/2020 12:00:00 AM EST ATHE NA ([facility]) Outpatient Attender: Javi Beckman [facility] 05/31/2020 09:00:00 AM EST MEDENT ([facility]) Laverne Ho, [employer] FRENCH TEACHER: [address], [place] [address], Ph. Attender: Laverne Ho [facility] 05/06/2020 12:00:00 AM EDT ATHE NA ([facility]) Laverne Ho, MID[employer] FRENCH TEACHER: [address], [place] [address], Ph. Attender: Laverne Poojakaylaalex [facility] 05/06/2020 12:00:00 AM EDT ATHE NA ([facility]) Laverne Ho, MID[employer] FRENCH TEACHER: [address], [place] [address], Ph. Attender: Laverne [place] [facility] 05/06/2020 12:00:00 AM EDT ATHE NA ([facility]) Laverne Ho, MID[employer] FRENCH TEACHER: [address], [place] [address], Ph. Attender: Laverne Ho [facility] 05/06/2020 12:00:00 AM EDT ATHMoni RAE ([facility]) Outpatient<td ID="encounterTypeDescripti onID0">Chronic Disease Follow- up</td><td>Katja Mccall NP</td><td>[facility]</td><td>05/05/2020</td><td><content ID="encounterDiagnosisID0-0"> Diabetes Mellitus Type 2</content>, <content ID="encounterDiagnosisID0- 1">Essential Hypertension Benign</content>, <content ID="encounterDiagnosisID0- 2">Osteoarthritis Generalized</content>, <content ID="encounterDiagnosisID0- 3">Cirrhosis</content>, <content ID="encounterDiagnosisID0-4">Eustachian Tube</content></td> Attender: Katja Mccall [facility] 05/05/2020 11:08:00 AM EDT - 05/05/2020 12:04:36 PM EDT CirrhosisEustachian TubeDiabetes Mellitus Type 2Osteoarthritis GeneralizedEssential Hypertension Benign [place] ([facility]) Cirrhosis Eustachian Tube Diabetes Mellitus Type 2 Osteoarthritis Generalized Essential Hypertension Benign Laverne Ho, MID[employer] SCHOOL FRENCH TEACHER: [address], [place] [address], Ph. Attender: Laverne [place] [facility] 03/29/2020 12:00:00 AM EDT SRIKANTH RAE ([facility]) Laverne Ho, [employer] FRENCH TEACHER: [address], [place] [address], Ph. Attender: Laverne Ho [facility] 03/29/2020 12:00:00 AM EDT ATHE NA ([facility]) Laverne Ho, [employer] FRENCH TEACHER: [address], [place] [address], Ph. Attender: Laverne Ho [facility] - [facility] 03/29/2020 12:00:00 AM EDT ATHMoni NA ([facility]) Laverne Ho, [employer] FRENCH TEACHER: [address], [place] [address], Ph. Attender: Laverne Ho [facility] 03/29/2020 12:00:00 AM EDT ATHMoni RAE ([facility]) Laverne Ho, [employer] FRENCH TEACHER: [address], [place] [address], Ph. Attender: Laverne Ho [facility] 03/29/2020 12:00:00 AM EDT ATHMoni RAE ([facility]) Unknown<td ID="encounterTypeDescriptionI D1">Correspondence</td><td>Katja Mccall NP</td><td></td><td>03/24/2020</td><td></td> Attender: Katja MIRZAP 03/24/2020 10:10:00 AM EDT - 03/24/2020 11:59:00 PM EDT SCUR[place] ([facility]) Outpatient Attender: Katja CHAN 03/14/2020 10:54:00 A M EDT LAB 1 OF 1 [facility] LAB 1 OF 1 Laverne Ho, [employer] FRENCH TEACHER: [address], [place] [address], Ph. Attender: Laverne Manzoalex [facility] 02/19/2020 12:00:00 AM EDT ATHE NA ([facility]) Laverne Ho, [employer] FRENCH TEACHER: [address], [place] [address], Ph. Attender: Laverne oH [facility] - [facility] - [facility] 02/19/2020 12:00:00 AM EDT ATHE NA ([facility]) Laverne Ho, [employer] FRENCH TEACHER: [address], [place] [address], Ph. Attender: Laverne Ho [facility] - [facility] - [facility] 02/19/2020 12:00:00 AM EDT ATHE NA ([facility]) Laverne Ho, [employer] FRENCH TEACHER: [address], [place] [address], Ph. Attender: Laverne Ho [facility] - [facility] 02/19/2020 12:00:00 AM EDT ATHE NA ([facility]) Laverne Ho, [employer] FRENCH TEACHER: [address], [place] [address], Ph. Attender: Laverne Ho [facility] - [facility] 02/19/2020 12:00:00 AM EDT ATHE NA ([facility]) Laverne Ho, [employer] FRENCH TEACHER: [address], [place] [address], Ph. Attender: Laverne Ho [facility] - [facility] 02/19/2020 12:00:00 AM EDT ATHE NA ([facility]) Obstetrics<td ID="encounterTypeDescripti onID2">Lab Order</td><td>Vera Shaben [employer] TEACHER</td><td></td><td>02/15/2020</td><td></td> Attender: Katja Mccall [facility] 02/15/2020 10:47:00 AM EDT - 02/15/2020 11:59:00 PM EDT [place] [facility]) Laverne Ho, [employer] FRENCH TEACHER: [address], [place] [address], Ph. Attender: Laverne Ho [facility] - [facility] 01/21/2020 12:00:00 AM EDT ATHMoni NA ([facility]) Laverne Ho, [employer] FRENCH TEACHER: [address], [place] [address], Ph. Attender: Laverne Ho [facility] 01/21/2020 12:00:00 AM EDT ATHE NA ([facility]) Laverne Ho, [employer] FRENCH TEACHER: [address], [place] [address], Ph. Attender: Laverne Ho [facility] - [facility] 01/21/2020 12:00:00 AM EDT ATHE NA ([facility]) Laverne Ho, [employer] FR[employer]CH TEACHER: [address], [place] [address], Ph. Attender: Laverne Ho [facility] - [facility] 01/21/2020 12:00:00 AM EDT ATHMoni NA ([facility]) Laverne Ho, [employer] FR[employer] TEACHER: [address], [place] [address], Ph. Attender: Lavernemoni Ho [facility] - [facility] 01/21/2020 12:00:00 AM EDT ATHMoni RAE ([facility]) Laverne Ho, [employer]ER: [address], [place] [address], Ph. Attender: Laverne Ho [facility] 01/21/2020 12:00:00 AM EDT ATHMoni NA ([facility]) Laverne Ho, [employer]ER: [address], [place] [address], Ph. Attender: Laverne Ho [facility] - [facility] 01/21/2020 12:00:00 AM EDT ATHMoni RAE ([facility]) Unknown<td ID="encounterTypeDescriptionI D3">Standing Order</td><td>Katja Mccall NP</td><td></td><td>01/13/2020</td><td></td> Attender: Katja Mccall [facility] 01/13/2020 01:51:00 PM EDT - 01/13/2020 11:59:00 PM EDT [facility]) Laverne Ho, [employer]ER: [address], [place] [address], Ph. Attender: Laverne Georgia [facility] - [facility] 12/10/2019 12:00:00 AM EDT ETHAN ([facility]) Laverne Ho, [employer]ER: [address], [place] [address], Ph. Attender: Laverne Ho [facility] - [facility] 12/10/2019 12:00:00 AM EDT ETHAN ([facility]) Laverne Ho, [employer]ER: [address], [place] [address], Ph. Attender: Laverne Ho CLERICAL ADJUSTER [place] - [facility] 12/10/2019 12:00:00 AM EDT ETHAN ([facility]) Laverne Ho, [employer]ER: [address], [place] [address], Ph. Attender: Laverne Ho CLERICAL ADJUSTER [place] - [facility] 12/10/2019 12:00:00 AM EDT ETHAN ([facility]) Laverne Ho, [employer]ER: [address], [place] [address], Ph. Attender: Laverne Ho CLERICAL ADJUSTER [place] - [facility] 12/10/2019 12:00:00 AM EDT ETHAN ([facility]) Laverne Ho, [employer]ER: [address], [place] [address], Ph. Attender: Laverne Ho CLERICAL ADJUSTER [place] - [facility] 12/10/2019 12:00:00 AM EDT ETHAN ([facility]) Laverne Ho, [employer]ER: [address], [place] [address], Ph. Attender: Laverne Ho CLERICAL ADJUSTER [place] - [facility] 12/10/2019 12:00:00 AM EDT ETHAN ([facility]) Laverne Ho, [employer]ER: [address], [place] [address], Ph. Attender: Laverne Ho CLERICAL ADJUSTER [place] - [facility] 12/10/2019 12:00:00 AM EDT ETHAN ([facility]) Outpatient Attender: XAVI BRADFORD MD Main Office 12/09/2019 10:45:00 AM EDT MEDENT ([facility]) Inpatient Attender: ER PHYSICIAN 12/04/2019 02:11:00 PM E DT [facility] [place] ( in Healthcare facility) Attender: GENEVIEVE EDWARDS MDAdmitter: GENEVIEVE EDWARDS MD 12/04/2019 02:11:00 PM EDT [facility] Inpatient Attender: JENNIFER CRUZ MDA ttender: GENEVIEVE EDWARDS MDAttender: ER PHYSICIANAdmitter: GENEVIEVE EDWARDS MD 12/04/2019 10:17:55 AM EDT [facility] Inpatient Attender: Shae Castillo VAttender: GENEVIEVE EDWARDS MDAttender: ER PHYSICIANAdmitter: GENEVIEVE EDWARDS MD 12/04/2019 09:31:00 AM EDT - 12/07/2019 02:15:00 PM EDT ASCIES VOLUME OVERLOAD CIRRHOSIS [facility] ASCIES VOLUME OVERLOAD CIRRHOSIS Patient discharged. Outpatient<td ID="encounterTypeDescripti onID4">Telephone Encounter</td><td>Kathleen Guillory NP</td><td></td><td>12/03/2019</td><td><content ID="encounterDiagnosisID4-0">Ascites</content>, <content ID="encounterDiagnosisID4-1">Cirrhosis</content></td> Attender: KATHLEEN GUILLORY NP 12/03/2019 03:03:00 PM EDT - 12/03/2019 11:59:00 PM EDT CirrhosisAscitesCirrhosisAscites [place] ([facility]) Cirrhosis Ascites Cirrhosis Ascites Outpatient Referrer: Katja CHAN 12/02/2019 12:24:00 P M EDT [facility] Outpatient Referrer: Katja CHAN 12/02/2019 12:12:00 P M EDT [facility] Outpatient Referrer: Katja CHAN 12/01/2019 04:07:00 P M EDT [facility] Outpatient Attender: Katja CHAN 12/01/2019 03:0 0:00 PM EDT ascites of liver r10.9 [facility] ascites of liver r10.9 Outpatient Referrer: Katja Mccall [facility] 12/01/2019 02:43:00 P M EDT [facility] Unknown<td ID="encounterTypeDescriptionI D5">Referral Order</td><td>Katja Mccall NP</td><td></td><td>12/01/2019</td><td></td> Attender: Katja Mccall [facility] 12/01/2019 02:11:00 PM EDT - 12/01/2019 11:59:00 PM EDT [facility]) Outpatient Referrer: Katja MIRZAP 12/01/2019 02:04:00 P M EDT [facility] Outpatient Referrer: Katja Mccall [facility] 12/01/2019 01:59:00 P M EDT [facility] Outpatient Referrer: KATJA NIELSEN NP 0 12/01/2019 01:56:00 PM EDT [facility] Unknown<td ID="encounterTypeDescriptionI D6">Referral Order</td><td>Katja Mccall NP</td><td></td><td>12/01/2019</td><td></td> Attender: Katja MIRZAP 12/01/2019 12:31:00 PM EDT - 12/01/2019 11:59:00 PM EDT [facility]) Outpatient<td ID="encounterTypeDescripti onID7">Acute L3</td><td>Katja Mccall NP</td><td>[facility]</td><td>12/01/2019</td><td><content ID="encounterDiagnosisID7-0">Diabetes Mellitus Type 2</content>, <content ID="encounterDiagnosisID7-1">Essential Hypertension Benign</content>, <content ID="encounterDiagnosisID7-2">Edema</content>, <content ID="encounterDiagnosisID7-3">Abdominal Pain</content></td> [facility] 12/01/2019 11:10:00 AM EDT - 12/01/2019 12:33:01 PM EDT Abdominal PainEdemaAbdominal PainEdemaAbdominal PainEdemaDiabetes Mellitus Type 2Diabetes Mellitus Type 2Diabetes Mellitus Type 2Essential Hypertension BenignEssential Hypertension BenignEssential Hypertension Benign [place] ([facility]) Abdominal Pain Edema Abdominal Pain Edema Abdominal Pain Edema Diabetes Mellitus Type 2 Diabetes Mellitus Type 2 Diabetes Mellitus Type 2 Essential Hypertension Benign Essential Hypertension Benign Essential Hypertension Benign Laevrne Ho, [employer] TE[employer]ER: [address], [place] [address], Ph. Attender: Laverne Ho [facility] - [facility] 11/12/2019 12:00:00 AM EDT ETHAN ([facility]) Laverne Ho, [employer]ER: [address], [place] [address], Ph. Attender: Lavernemoni Ho [facility] - [facility] 11/12/2019 12:00:00 AM EDT ETHAN ([facility]) Laverne Ho, [employer] TEACHER: [address], [place] [address], Ph. Attender: Laverne Ho [facility] - [facility] 11/12/2019 12:00:00 AM EDT ETHAN ([facility]) Laverne Ho, [employer] TEACHER: [address], [place] [address], Ph. Attender: Laverne Ho [facility] [place] - [facility] 11/12/2019 12:00:00 AM EDT ETHAN ([facility]) Laverne Ho, [employer] TEACHER: [address], [place] [address], Ph. Attender: Lavernemoni Ho [facility] [place] - [facility] 11/12/2019 12:00:00 AM EDT ETHAN ([facility]) Laverne Ho, [employer] TEACHER: [address], [place] [address], Ph. Attender: Laverne Ho CLERICAL ADJUSTER [place] - [facility] 11/12/2019 12:00:00 AM EDT ETHAN ([facility]) Laverne Ho, [employer] TEACHER: [address], [place] [address], Ph. Attender: Laverne Ho [facility] 11/12/2019 12:00:00 AM EDT ETHAN ([facility]) Laverne Ho, [employer] TEACHER: [address], [place] [address], Ph. Attender: Laverne Ho [facility] 11/12/2019 12:00:00 AM EDT ETHAN ([facility]) Laverne Ho, [employer] TEACHER: [address], [place] [address], Ph. Attender: Laverne Ho [facility] 11/12/2019 12:00:00 AM EDT ETHAN ([facility]) Unknown<td ID="encounterTypeDescriptionI D8">[Patient Encounter]</td><td>Katja Mccall NP</td><td>[facility]</td><td>10/26/2019</td><td></td> Attender: Katja Mccall [facility] 10/26/2019 11:39:00 AM EDT - 10/26/2019 11:59:00 PM EDT [facility]) Laverne Ho, [employer] TEACHER: [address], [address], [place] [address], Ph. Attender: Laverne Ho [facility] - [facility] 10/15/2019 12:00:00 AM EDT ATHE NA ([facility]) Laverne Ho, [employer] TEACHER: [address], [address], [place] [address], Ph. Attender: Laverne Ho [facility] - [facility] 10/15/2019 12:00:00 AM EDT ATHE NA ([facility]) Laverne Ho, [employer] TEACHER: [address], [place] [address], Ph. Attender: Laverne Ho [facility] - [facility] 10/15/2019 12:00:00 AM EDT ATHE NA ([facility]) Laverne Ho, [employer] TEACHER: [address], [address], [place] [address], Ph. Attender: Laverne Ho [facility] - [facility] 10/15/2019 12:00:00 AM EDT ATHE NA ([facility]) Laverne Ho, [employer] TEACHER: [address], [address], [place] [address], Ph. Attender: Laverne Ho [facility] - [facility] 10/15/2019 12:00:00 AM EDT ATHE NA ([facility]) Laverne Ho, [employer] TEACHER: [address], [address], [place] [address], Ph. Attender: Lavernemoni Ho [facility] - [facility] 10/15/2019 12:00:00 AM EDT ATHE NA ([facility]) Laverne Ho, [employer] TEACHER: [address], [place] [address], Ph. Attender: Laverne Ho [facility] - [facility] 10/15/2019 12:00:00 AM EDT ATHE NA ([facility]) Laverne Ho, [employer] TEACHER: [address], [address], [place] [address], Ph. Attender: Laverne Ho [facility] - [facility] 10/15/2019 12:00:00 AM EDT ATHMoni NA ([facility]) Laverne Ho, [employer] TEACHER: [address], [place] [address], Ph. Attender: Laverne Ho [facility] - [facility] 10/15/2019 12:00:00 AM EDT ATHMoni NA ([facility]) Laverne Ho, [employer] TEACHER: [address], [place] [address], Ph. Attender: Laverne Ho [facility] - [facility] 10/15/2019 12:00:00 AM EDT ATHE NA ([facility]) Unknown<td ID="encounterTypeDescriptionI D9">[Patient Encounter]</td><td>Katja Mccall [employer]</td><td></td><td>10/14/2019</td><td></td> Attender: Katja Mccall CLERICAL ADJUSTER 10/14/2019 02:18:00 PM EDT - 10/14/2019 11:59:00 PM EDT [facility]) Outpatient<td ID="encounterTypeDescripti onID10">Establish Care</td><td>Katja Mccall [employer]</td><td>[facility]</td><td>10/08/2019</td><td><content ID="[id number]">Diabetes Mellitus Type 2</content>, <content ID="[id number]">Essential Hypertension Benign</content>, <content ID="[id number]">Osteoarthritis Generalized</content></td> Attender: Katja Mccall [facility] 10/08/2019 09:53:00 AM EDT - 10/08/2019 11:05:01 [...] Osteoarthritis Generalized Essential Hypertension Benign Laverne Ho, [employer] TEACHER: [address], [place] [address], Ph. Attender: Laverne Ho [facility] 10/07/2019 12:00:00 AM EDT SRIKANTH RAE ([facility]) Laverne Orona Jovanyalex, [employer] TEACHER: [address], [place] [address], Ph. Attender: Laverne Ho [facility] 10/07/2019 12:00:00 AM EDT SRIKANTH RAE ([facility]) Laverne Ho, [employer] TEACHER: [address], [place] [address], Ph. Attender: Laverne Manzoon CLERICAL ADJUSTER [place] - [facility] 10/07/2019 12:00:00 AM EDT ATHE NA ([facility]) Laverne Ho, [employer] TEACHER: [address], [address], [place] [address], Ph. Attender: Laverne Ho [facility] - [facility] 10/07/2019 12:00:00 AM EDT ATHE NA ([facility]) Laverne Ho, [employer] TEACHER: [address], [address], [place] [address], Ph. Attender: Laverne Ho [facility] - [facility] 10/07/2019 12:00:00 AM EDT ATHE NA ([facility]) Laverne Ho, [employer] TEACHER: [address], [address], [place] [address], Ph. Attender: Laverne Ho [facility] - [facility] 10/07/2019 12:00:00 AM EDT ATHE NA ([facility]) Laverne Ho, [employer] TEACHER: [address], [address], [place] [address], Ph. Attender: Lavernemoni Manzoalex [facility] - [facility] 10/07/2019 12:00:00 AM EDT ATHE NA ([facility]) Laverne Ho, [employer] TEACHER: [address], [address], [place] [address], Ph. Attender: Laverne Ho [facility] - [facility] 10/07/2019 12:00:00 AM EDT ATHE NA ([facility]) Laverne Oron[place], [employer] TEACHER: [address], [address], [place] [address], Ph. Attender: Laverne Ho [facility] 10/07/2019 12:00:00 AM EDT ATHE NA ([facility]) Laverne Ho, [employer] TEACHER: [address], [place] [address], Ph. Attender: Laverne Ho [facility] 10/07/2019 12:00:00 AM EDT ATHE NA ([facility]) Laverne Ho, [employer] TEACHER: [address], [place] [address], Ph. Attender: Laverne Ho [facility] 10/07/2019 12:00:00 AM EDT ATHE NA ([facility]) Recurring Patient Referrer: Slava Ervin MD 09/23/2019 11:3 8:54 AM [facility] Outpatient Attender: Jeferson Story MD [facility] Med at [facility] 09/21/2019 11:20:00 AM EST [facility] ([facility]) Outpatient Attender: Mikey Burks IIReferrer: Slvaa Ervin MD 09/16/2019 07:29:42 AM [facility] Recurring Patient Referrer: Slava Ervin MD 09/15/2019 02:5 0:51 PM [facility] Outpatient<td ID="encounterTypeDescripti onID11">Walk-In</td><td>Kathleen Guillory NP</td><td>[facility]</td><td>09/07/2019</td><td><content ID="[id number]">Idiopathic Peripheral Neuropathy</content>, <content ID="[id number]">Chronic Pain</content>, <content ID="[id number]">Essential Hypertension Benign</content>, <content ID="[id number]">Opioid Withdrawal</content></td> Attender: KATHLEEN GUILLORY [employer] [facility] 09/07/2019 01:23:00 PM EST - 09/07/2019 02:38:09 [...] Slava Ervin MD 09/03/2019 01:04:59 PM EST [facility] Recurring Patient Attender: RUBIA GARLAND MDReferrer: Slava Ervin MD 08/25/2019 03:57:48 PM EST [facility] Immunizations Vaccine Date Status [...] 08/04/2020 12:00:00 AM EST ORAL active MEDENT ([facility] 4-240 mg 07/12/2020 12:00:00 AM EST tablet, [...] 05/31/2020 12:00:00 AM EST ORAL active MEDENT ([facility]) Spironolactone 50 MG Oral Tablet Spironolactone 05/31/2020 12:00:00 A M EST ORAL active MEDENT ([facility]) Hydrochlorothiazide 12.5 MG Oral Tablet hydroCHLOROthi azide 12.5 MG Oral Tablet hydroCHLOROthiazide 12.5 MG Oral Tablet 05/05/2020 12:00:00 AM EDT active hydrochlorothiazide 12.5 MG Oral Tablet [facility] 24 HR trandolapril 4 MG / Verapamil hydr ochloride 240 MG Extended Release Oral Tablet [Tarka] Tarka 4-240 MG Oral Tablet Extended Release Tarka 4-240 MG Oral Tablet Extended Release 05/05/2020 12:00:00 AM EDT 1 active 24 HR trandolapril 4 MG / verapamil hydrochloride 240 MG Extended Release Oral Tablet [Tarka] [facility] tizanidine 4 MG Oral Tablet tiZANidine HCl 4 MG Oral T ablet tiZANidine HCl 4 MG Oral Tablet 04/29/2020 12:00:00 AM EDT 1 active tizanidine 4 MG Oral Tablet [facility] 12 HR Oxycodone Hydrochloride 10 MG Exte nded Release Oral Tablet [Oxycontin] OxyCONTIN 10 MG Oral Tablet ER 12 Hour Abuse-Deterrent OxyCONTIN 10 MG Oral Tablet ER 12 Hour Abuse-Deterrent 04/09/2020 12:00:00 AM EDT active Abuse-Deterrent 12 HR oxycodone hydrochl oride 10 MG Extended Release Oral Tablet [Oxycontin] [facility] Methadone Hydrochloride 10 MG Oral Tablet Methadone HCL 12/08/2019 12:00:00 AM EDT ORAL active [facility] 24 HR trandolapril 4 MG / Verapamil hydr ochloride 240 MG Extended Release Oral Tablet [Tarka] Tarka 12/08/2019 12:00:00 AM EDT ORAL co mpleted MEDENT ([facility]) [place]-3 Acid Ethyl Esters (SHELTER) 1000 MG Oral Capsule Fish Oi l 12/08/2019 12:00:00 AM EDT ORAL completed MEDENT ([facility]) duloxetine 30 MG Delayed Release Oral Capsule Duloxetine HCL 12/08/2019 12:00:00 AM EDT ORAL completed MEDENT ([facility]) Hydrochlorothiazide 12.5 MG Oral Capsule Hydrochlorothiazide 12/08/2019 12:00:00 AM EDT ORAL completed MEDENT ([facility]) Aspirin 81 MG Delayed Release Oral Tablet Aspirin 81 2019 12:00:00 AM EDT ORAL completed MEDENT ([facility]) glimepiride 2 MG Oral Tablet Glimepiride 12/01/2019 12:00:00 AM EDT ORAL completed [facility] ([facility]) Methadone Hydrochloride 10 MG Oral Tablet Methadone [...] 09/21/2019 12:00:00 AM EST ORAL active MEDENT ([facility]) duloxetine 30 MG Delayed Release Oral Capsule Duloxetine HCL 09/21/2019 12:00:00 AM EST ORAL active MEDENT ([facility]) Amitriptyline Hydrochloride 25 MG Oral Tablet AMITRIPTYLINE HCL 09/16/2019 12:00:00 AM EST tablet 120 TAKE FOUR TABLETS BY MOUT H AT BEDTIME TAKE FOUR TABLETS BY MOUTH AT BEDTIME SOLD: 09/22/2019 [facility] Clonidine Hydrochloride 0.1 MG Oral Tablet [...] TABLETS BY MOUTH AT BEDTIME SOLD: 09/02/2019 [facility] 5 mg 08/31/2019 12:00:00 AM EST [...] 15 MG Extended Release Oral Tablet [place] ([facility]) 24 HR trandolapril 4 MG / Verapamil hydr ochloride 240 MG Extended Release Oral Tablet [Tarka] Tarka 4-240MG Oral Tablet Extended Release Tarka 4-240MG Oral Tablet Extended Release 01/15/2019 12:00:00 AM EDT 1 aborted 24 HR trandolapril 4 MG / verapamil hydrochloride 240 MG Extended Release Oral Tablet [Tarka] [place] ([facility]) Hydrochlorothiazide 12.5 MG Oral Tablet hydroCHLOROthi azide 12.5MG Oral Tablet hydroCHLOROthiazide 12.5MG Oral Tablet 01/15/2019 12:00:00 AM EDT aborted hydrochlorothiazide 12.5 MG Oral Tablet [place] ([facility]) Mupirocin 0.02 MG/MG Topical Ointment Mupirocin 2% Ext ernal Ointment Mupirocin 2% External Ointment 01/14/2019 12:00:00 AM EDT 1 aborted mupirocin 0.02 MG/MG Topical Ointment [place] ([facility]) Methadone Hydrochloride 10 MG Oral Tablet Methadone HC l 10MG Oral Tablet Methadone HCl 10MG Oral Tablet 10/31/2018 12:00:00 AM EDT aborted methadone hydrochloride 10 MG Oral Tablet [facility] ([facility] Capsaicin 0.25 MG/ML Topical Cream Capsaicin 0.025% Ex ternal Cream Capsaicin 0.025% External Cream 10/01/2018 12:00:00 AM EST 1 aborted capsaicin 0.25 MG/ML Topical Cream [place] ([facility]) 24 HR Metformin hydrochloride 500 MG Ext ended Release Oral Tablet metFORMIN HCl ER 500MG Oral Tablet Extended Release 24 Hour metFORMIN HCl ER 500MG Oral Tablet Extended Release 24 Hour 10/01/2018 12:00:00 AM EST 2 aborted 24 HR metformin hydrochloride 500 MG Extended Release Oral Tablet [place] ([facility]) Fish Oil 1000 MG OR CAPS Fish Oil 1000 MG OR CAPS 02/09/2011 12:00: 00 AM EDT aborted Fish Oil [place] ([facility]) Diazepam 5 MG Oral Tablet diazepam 5 mg tablet diazepam 5 mg tablet completed diazepam 5 MG Oral Tablet ETHAN ([facility]) 12 HR Oxycodone Hydrochloride 10 MG Exte nded Release Oral Tablet [Oxycontin] OxyContin 10 mg tablet,crush resistant,extended release OxyContin 10 mg tablet,crush resistant,extended release completed Abuse- Deterrent 12 HR oxycodone hydrochloride 10 MG Extended Release Oral Tablet [Oxycontin] ETHAN ([facility]) Diazepam 5 MG Oral Tablet diazepam 5 mg tablet diazepam 5 mg tablet completed diazepam 5 MG Oral Tablet [facility]AN ([facility] [facility] Methadone Hydrochloride 10 MG Oral Table t methadone 10 mg tablet TAKE ONE TABLET BY MOUTH TWICE A DAY MAXIMUM DAILY DOSE 2 TABLETS methadone 10 mg tablet TAKE ONE TABLET BY MOUTH TWICE A DAY MAXIMUM DAILY DOSE 2 TABLETS completed methadone hydrochloride 10 MG Or al Tablet ETHAN ([facility]) 168 HR Buprenorphine 0.005 MG/HR Transde rmal Patch buprenorphine 5 mcg/hour weekly transdermal patch buprenorphine 5 mcg/hour weekly transdermal patch completed 168 HR Buprenorphine 0 .005 MG/HR Transdermal System ETHAN ([facility]) Methadone Hydrochloride 5 MG Oral Tablet methadone 5 mg tablet TAKE ONE TABLET BY MOUTH THREE TIMES A DAY MAXIMUM DAILY DOSE 3 methadone 5 mg tablet TAKE ONE TABLET BY MOUTH THREE TIMES A DAY MAXIMUM DAILY DOSE 3 completed methadone hydrochloride 5 MG Oral Tablet ETHAN ([facility]) doxycycline hyclate 100 MG Oral Capsule doxycycline hyclate 100 mg capsule TAKE ONE CAPSULE BY MOUTH TWICE A DAY doxycycline hyclate 100 mg capsule TAKE ONE CAPSULE BY MOUTH TWICE A DAY completed doxycycline hyclate 100 MG Oral Capsule ETHAN ([facility]) Diazepam 5 MG Oral Tablet diazepam 5 mg tablet diazepam 5 mg tablet completed diazepam 5 MG Oral Tablet ETHAN ([facility]) Diazepam 5 MG Oral Tablet diazepam 5 mg tablet diazepam 5 mg tablet completed Diazepam 5 MG Oral Tablet ETHAN ([facility]) duloxetine 30 MG Delayed Release Oral Ca psule duloxetine 30 mg capsule,delayed release TAKE 1 CAPSULE BY MOUTH EVERY DAY FOR 2 WEEKS THEN 2 EVERY DAY duloxetine 30 mg capsule,delayed release TAKE 1 CAPSULE BY MOUTH EVERY DAY FOR 2 WEEKS THEN 2 EVERY DAY completed duloxetine 30 MG Delayed Release Oral Capsule ETHAN ([facility]) Amitriptyline Hydrochloride 25 MG Oral T ablet amitriptyline 25 mg tablet 1-2 tabs at bedtime amitriptyline 25 mg tablet 1-2 tabs at bedtime completed Amitriptyline Hydrochloride 25 M G Oral Tablet ETHAN ([facility]) 168 HR Buprenorphine 0.005 MG/HR Transde rmal Patch buprenorphine 5 mcg/hour weekly transdermal patch buprenorphine 5 mcg/hour weekly transdermal patch completed 168 HR buprenorphine 0 .005 MG/HR Transdermal System ETHAN ([facility]) Aspirin 81 MG Chewable Tablet aspirin 81 mg chewable tablet Chew 1 tablet every day by oral route. aspirin 81 mg chewable tablet Chew 1 tab let every day by oral route. 1 completed aspirin 81 MG Chewable Tablet ETHAN ([facility]) Diazepam 5 MG Oral Tablet diazepam 5 mg tablet diazepam 5 mg tablet completed Diazepam 5 MG Oral Tablet ETHAN ([facility]) Diazepam 5 MG Oral Tablet diazepam 5 mg tablet diazepam 5 mg tablet completed diazepam 5 MG Oral Tablet ETHAN ([facility]) Methadone Hydrochloride 10 MG Oral Table t methadone 10 mg tablet TAKE ONE TABLET BY MOUTH TWICE A DAY MAXIMUM DAILY DOSE 2 TABLETS methadone 10 mg tablet TAKE ONE TABLET BY MOUTH TWICE A DAY MAXIMUM DAILY DOSE 2 TABLETS completed methadone hydrochloride 10 MG Or al Tablet ETHAN ([facility]) Diazepam 5 MG Oral Tablet diazepam 5 mg tablet diazepam 5 mg tablet completed diazepam 5 MG Oral Tablet ETHAN ([facility]) doxycycline hyclate 100 MG Oral Capsule doxycycline hyclate 100 mg capsule TAKE ONE CAPSULE BY MOUTH TWICE A DAY doxycycline hyclate 100 mg capsule TAKE ONE CAPSULE BY MOUTH TWICE A DAY completed doxycycline hyclate 100 MG Oral Capsule ETHAN ([facility]) Amitriptyline Hydrochloride 25 MG Oral T ablet amitriptyline 25 mg tablet 1-2 tabs at bedtime amitriptyline 25 mg tablet 1-2 tabs at bedtime completed Amitriptyline Hydrochloride 25 M G Oral Tablet ETHAN ([facility]) Amitriptyline Hydrochloride 25 MG Oral T ablet amitriptyline 25 mg tablet 1-2 tabs at bedtime amitriptyline 25 mg tablet 1-2 tabs at bedtime completed Amitriptyline Hydrochloride 25 M G Oral Tablet ETHAN ([facility]) Methadone Hydrochloride 10 MG Oral Table t methadone 10 mg tablet TAKE ONE TABLET BY MOUTH TWICE A DAY MAXIMUM DAILY DOSE 2 TABLETS methadone 10 mg tablet TAKE ONE TABLET BY MOUTH TWICE A DAY MAXIMUM DAILY DOSE 2 TABLETS completed methadone hydrochloride 10 MG Or al Tablet ETHAN ([facility]) Morphine Sulfate 15 MG Extended Release Oral Tablet morphine ER 15 mg tablet,extended release TAKE ONE TABLET BY MOUTH EVERY 12 HOURS MAXIMUM DAILY DOSE 2 morphine ER 15 mg tablet,extended releas e TAKE ONE TABLET BY MOUTH EVERY 12 HOURS MAXIMUM DAILY DOSE 2 completed morphine sulfate 15 MG Extended Release Oral Tablet ETHAN ([facility]) Methadone Hydrochloride 5 MG Oral Tablet methadone 5 mg tablet TAKE ONE TABLET BY MOUTH THREE TIMES A DAY MAXIMUM DAILY DOSE 3 methadone 5 mg tablet TAKE ONE TABLET BY MOUTH THREE TIMES A DAY MAXIMUM DAILY DOSE 3 completed methadone hydrochloride 5 MG Oral Tablet ETHAN ([facility]) Methadone Hydrochloride 5 MG Oral Tablet methadone 5 mg tablet TAKE ONE TABLET BY MOUTH THREE TIMES A DAY MAXIMUM DAILY DOSE 3 methadone 5 mg tablet TAKE ONE TABLET BY MOUTH THREE TIMES A DAY MAXIMUM DAILY DOSE 3 completed methadone hydrochloride 5 MG Oral Tablet ETHAN ([facility]) Diazepam 5 MG Oral Tablet diazepam 5 mg tablet diazepam 5 mg tablet completed Diazepam 5 MG Oral Tablet ETHAN ([facility]) duloxetine 30 MG Delayed Release Oral Ca psule duloxetine 30 mg capsule,delayed release TAKE 1 CAPSULE BY MOUTH EVERY DAY FOR 2 WEEKS THEN 2 EVERY DAY duloxetine 30 mg capsule,delayed release TAKE 1 CAPSULE BY MOUTH EVERY DAY FOR 2 WEEKS THEN 2 EVERY DAY completed duloxetine 30 MG Delayed Release Oral Capsule ETHAN ([facility]) Spironolactone 100 MG Oral Tablet spironolactone 100 m g tablet spironolactone 100 mg tablet completed spironol actone 100 MG Oral Tablet ETHAN ([facility]) Methadone Hydrochloride 10 MG Oral Table t methadone 10 mg tablet TAKE ONE TABLET BY MOUTH TWICE A DAY MAXIMUM DAILY DOSE 2 TABLETS methadone 10 mg tablet TAKE ONE TABLET BY MOUTH TWICE A DAY MAXIMUM DAILY DOSE 2 TABLETS completed methadone hydrochloride 10 MG Or al Tablet ETHAN ([facility]) 12 HR Oxycodone Hydrochloride 10 MG Exte nded Release Oral Tablet [Oxycontin] OxyContin 10 mg tablet,crush resistant,extended release OxyContin 10 mg tablet,crush resistant,extended release completed Abuse- Deterrent 12 HR oxycodone hydrochloride 10 MG Extended Release Oral Tablet [Oxycontin] ETHAN ([facility]) glimepiride 2 MG Oral Tablet glimepiride 2 mg tablet o ne tablet daily with food glimepiride 2 mg tablet one tablet daily with food completed glimepiride 2 MG Oral Tablet [facility] ([facility]) Aspirin 81 MG Chewable Tablet aspirin 81 mg chewable tablet Chew 1 tablet every day by oral route. aspirin 81 mg chewable tablet Chew 1 tab let every day by oral route. 1 completed aspirin 81 MG Chewable Tablet ETHAN ([facility]) Spironolactone 100 MG Oral Tablet spironolactone 100 m g tablet spironolactone 100 mg tablet completed spironol actone 100 MG Oral Tablet ETHAN ([facility]) 24 HR trandolapril 4 MG / Verapamil hydr ochloride 240 MG Extended Release Oral Tablet trandolapril 4 mg-verapamil ER 240 mg tablet,immed-exten release 24 hr trandolapril 4 mg-verapamil ER 240 mg tablet,immed-exten release 24 hr completed 24 HR trandolap ril 4 MG / verapamil hydrochloride 240 MG Extended Release Oral Tablet ETHAN ([facility]) Methadone Hydrochloride 10 MG Oral Table t methadone 10 mg tablet TAKE ONE TABLET BY MOUTH TWICE A DAY MAXIMUM DAILY DOSE 2 TABLETS methadone 10 mg tablet TAKE ONE TABLET BY MOUTH TWICE A DAY MAXIMUM DAILY DOSE 2 TABLETS completed methadone hydrochloride 10 MG Or al Tablet ETHAN ([facility]) Diazepam 5 MG Oral Tablet diazepam 5 mg tablet diazepam 5 mg tablet completed diazepam 5 MG Oral Tablet ETHAN ([facility]) Diazepam 5 MG Oral Tablet diazepam 5 mg tablet diazepam 5 mg tablet completed diazepam 5 MG Oral Tablet ETHAN ([facility]) Diazepam 5 MG Oral Tablet diazepam 5 mg tablet diazepam 5 mg tablet completed diazepam 5 MG Oral Tablet ETHAN ([facility]) glimepiride 2 MG Oral Tablet glimepiride 2 mg tablet o ne tablet daily with food glimepiride 2 mg tablet one tablet daily with food completed glimepiride 2 MG Oral Tablet ETHAN ([facility]) Methadone Hydrochloride 5 MG Oral Tablet methadone 5 mg tablet TAKE ONE TABLET BY MOUTH THREE TIMES A DAY MAXIMUM DAILY DOSE 3 methadone 5 mg tablet TAKE ONE TABLET BY MOUTH THREE TIMES A DAY MAXIMUM DAILY DOSE 3 completed methadone hydrochloride 5 MG Oral Tablet ETHAN ([facility]) Methadone Hydrochloride 5 MG Oral Tablet methadone 5 mg tablet TAKE ONE TABLET BY MOUTH THREE TIMES A DAY MAXIMUM DAILY DOSE 3 methadone 5 mg tablet TAKE ONE TABLET BY MOUTH THREE TIMES A DAY MAXIMUM DAILY DOSE 3 completed methadone hydrochloride 5 MG Oral Tablet ETHAN ([facility]) Amitriptyline Hydrochloride 25 MG Oral T ablet amitriptyline 25 mg tablet 1-2 tabs at bedtime amitriptyline 25 mg tablet 1-2 tabs at bedtime completed amitriptyline hydrochloride 25 M G Oral Tablet ETHAN ([facility]) Morphine Sulfate 15 MG Extended Release Oral Tablet morphine ER 15 mg tablet,extended release TAKE ONE TABLET BY MOUTH EVERY 12 HOURS MAXIMUM DAILY DOSE 2 morphine ER 15 mg tablet,extended releas e TAKE ONE TABLET BY MOUTH EVERY 12 HOURS MAXIMUM DAILY DOSE 2 completed morphine sulfate 15 MG Extended Release Oral Tablet ETHAN ([facility]) Insurance Providers Payer name Policy type / Coverage type Policy ID Covered republican ID Covered republican's relationship to romero Policy Romero Plan Information [employer] [id number] SP [id number] [employer] [id number] SP [id number] [facility] O [id number] S [id number] [facility] [id number] SP [id number] [facility] [id number] SP [id number] MEDICARE [id number] SP [id number] [facility] GOLD [id number] SP [id number] MEDICARE [id number] SP [id number] A [facility] Health Plan [facility] Other 0 Self 0 [facility] O [id number] S [id number] SELF PAY [facility] GOLD MEDICARE ADV [id number] SP [id number] MEDICARE AIDA [id number] S [id number] [facility]A [id number] S [id number] [facility] [place] Other 0 Self 0 [facility] [place] Other 0 Self 0 SELF PAY MVP GOLD MEDICARE ADV [id number] SP [id number] [facility] [place] Other 0 Self 0 MVP Healthcare F [id number] SELF [id number] [facility] [place] Other 0 Self 0 DME Jurisdiction A NHIC C [id number] SELF [id number] Medicare C [id number] SELF [id number] A [facility] [place] Other 0 Self 0 [facility] [id number] S [id number] [facility] [place] Other 0 Self 0 SELF PAY MVP GOLD MEDICARE ADV [id number] SP [id number] SELF PAY MEDICARE PART A [id number] SP [id number] [facility] [place] Other 0 Self 0 [facility] [place] Other 0 Self 0 [facility] [place] Other 0 Self 0 MEDICARE PART A [id number] SP [id number] [facility] [place] Other 0 Self 0 [facility] [place] Other 0 Self 0 [facility] Healthcare F [id number] SELF [id number] [facility] [place] Other 0 Self 0 [facility] [place] Other 0 Self 0 [facility] [place] Other 0 Self 0 ANSI-Medicare Part B [id number] ANSI-Health Maintenance Organization (HM O) [id number] [facility] [place] Other 0 Self 0 Medicare Part [place] of [place] Other 0 Self 0 Medicare [place] Individual Policy 0 Tana f 0 Medicare [place] Individual Policy 0 Tana f 0 Medicare [place] Individual Policy 0 Tana f 0 Medicare [place] Individual Policy 0 Tana f 0 MEDICARE [id number] SP [id number] A Medicare [facility] Medicare Primary Self MEDICARE C [id number] S [id number] A [id number] A Problems, Conditions, and Diagnoses Code Display Name Description Problem Type Effective Dates Data Source(s) 53324380 Essential hypertension Essential hypertension Problem 06/14/2020 12:00:00 AM EST MEDENT ([facility], ) [id number] Cirrhosis - non-alcoholic Cirrhosis - non-alcoholic Pr oblem 05/31/2020 12:00:00 AM EST [facility] ([facility]) 571.5 Cirrhosis Cirrhosis Problem 05/05/2020 12:00:00 AM ED T [facility] 865290 Breast Cancer Breast Cancer Problem 10/08/2019 12:00:00 AM EDT DEEDEE ([facility]) 282017 Breast Cancer Breast Cancer Problem 10/08/2019 12:00:00 AM EDT [facility] ([facility] 036053 Breast Cancer Breast Cancer Problem 10/08/2019 12:00:00 AM EDT [facility]ED[facility] ([facility]) 954856 Breast Cancer Breast Cancer Problem 10/08/2019 12:00:00 AM EDT [facility] R60.9 Edema, unspecified R60.9 - Edema, unspecified Diagnosi s 03/14/2020 10:54:00 AM EDT [employer] I10 Essential (primary) hypertension I10 - Essential (primary) hypertension Diagnosis 03/14/2020 10:54:00 AM EDT [facility] E11.9 Type 2 diabetes mellitus without complic ations E11.9 - Type 2 diabetes mellitus without complications Diagnosis 03/14/2020 10:54:00 AM EDT [employer] Surgeries/Procedures Procedure Description Date Indications Data Source(s) UNLISTED PX ABDOMEN MUSCULOSKELETAL SYSTEM Abdomen Surgery P rocedure 06/08/2020 12:00:00 AM EST [facility] ([facility] Past medical history -Please see Problem List for Act adria Chronic Problems Past medical history -Please see Problem List for Active Chronic Problems 05/05/2020 12:00:00 AM EDT [facility] History of orthopedic surgery L foot tarsal [...] 12/10/2019 12:00:00 AM EDT ETHAN ([facility]) ECG ROUTINE ECG W/LEAST 12 LDS W/I&R 12/09/2019 12:00: 00 AM EDT MEDENT ([facility]) Electrocardiogram Interpretation & Report Only 020 12:00:00 AM EDT MEDENT ([facility]) Ekg With Interpretation and Report Ekg With [...] Chronic Problems 10/08/2019 12:00:00 AM EDT [facility] No history of coronary artery disease No history of coronary artery disease 10/08/2019 12:00:00 AM EDT [facility] ([facility] History of orthopedic surgery L foot tarsal tunnel re lease 05/1996 History of orthopedic surgery L foot tarsal tunnel release 05/199610/08/2019 12:00:00 AM EDT [facility] History of mastectomy of left breast - 1991 History o f mastectomy of left breast - 199110/08/2019 12:00:00 AM EDT [facility] History of cholecystectomy - 2003 History of cholecystectom y - 200310/08/2019 12:00:00 AM EDT [facility] ([facility]) Hemoglobin; Glycated A1c Hemoglobin; Glycated A1c 10/08/2019 12:00: 00 AM EDT DEEDEE ([facility]) Results ID Date Data Source [id number] 09/05/2020 12:42:00 PM EST [facility] Name Value Range Interpretation Code Description Data Debra rce(s) Supporting Document(s) SARS coronavirus 2 RNA [Presence] in Res piratory specimen by CHERIE with probe detection NEGATIVE [facility] This lab was ordered by [facility] a nd reported by [facility]. ID Date Data Source [id number] 07/12/2020 12:00:00 AM EST [facility] Laverne Reynolds Patient Name: MIKEY [id number] Date of : [address] Date of Exam: 07/12/2020AILYN Molina [id number]#: Fax: [id number] EXAM: MRI LUMBAR SPINE WITHOUT [...] rce(s) Supporting Document(s) ID Date Data Source [id number] 06/03/2020 11:28:00 AM EST MEDENT ([facility] [employer]) Name Value Range Interpretation Code Description Data Debra rce(s) Supporting Document(s) Ferritin [Mass/volume] in Serum or Plasma 268 ng/mL 26-388 [facility] ([facility]) Eyzac-0-Rtfcfrqbmip [Mass/volume] in Serum or Plasma 5.6 ng/mL [facility] ([facility]) THE AFP ASSAY IS PERFORMED ON THE [facility] BY CHEMILUMINESCENCE AND SHOULD NOT BE COMPARED [...] MEDENT ([facility]) ID Date Data Source [id number] 06/03/2020 11:28:00 AM EST MEDENT ([facility]) Name Value Range Interpretation Code Description Data Debra rce(s) Supporting Document(s) Partial Thromboplastin Time 30.4 s 24.2-38.5 ME DENT ([facility]) Prothrombin Time 17.4 s 12.5-14.3 [facility] ([facility]) Inr 1.39 [facility] ([facility]) THERAPUTIC HUMAN INR VALUES INDICATIONS NORMAL RANGES PROPHYLAXIS/TREATMENT OF: VENOUS THROMBOSIS 2.0-3.0 PULMONARY EMBOLISM 2.0-3.0 PREVENTION OF SYSTEMIC EMBOLISM FROM: TISSUE HEART VALVES 2.0-3.0 ACUTE MYOCARDIAL INFARCTION 2.0-3.0 VALVULAR HEART DISEASE 2.0-3.0 ATRIAL FIBRILLATION 2.0-3.0 MECHANICAL VALVES(HIGH RISK) 2.5-3.5 RECURRENT MYOCARDIAL INFARCTION 2.5-3.5 ID Date Data Source [id number] 06/03/2020 11:28:00 AM EST MEDENT ([facility]) Name Value Range Interpretation Code Description Data Debra rce(s) Supporting Document(s) Antinuclear Antibodies Direct Laboratory test result MED[facility] ([facility]) Performed at: - [facility] [address] [id number] Se[employer]ograph Computer: Lu Springer MD, Phone: [phone] ID Date Data Source [id number] 06/03/2020 11:28:00 AM EST MEDENT ([facility]) Name Value Range Interpretation Code Description Data Debra rce(s) Supporting Document(s) C reactive protein [Mass/volume] in Serum or Plasma 1.10 mg/dL 0.00-0 .30 [facility] ([facility]) ID Date Data Source [id number] 06/03/2020 11:28:00 AM EST [facility] ([facility]) Name Value Range Interpretation Code Description Data Debra rce(s) Supporting Document(s) Glucose, Fasting 104 mg/dL 70-100 MED[facility] ([facility] [employer]) Creatinine For GFR 1.15 mg/dL 0.70-1.30 MEDENT [...] Little GFR Left</content>
<content>ESRD GFR <15 on LAMP SHADE JOINER</content>
<content></content> Chloride Level 103 meq/L 98-107 MED[facility] [...] ([facility]) ID Date Data Source [id number] 05/06/2020 12:32:00 PM EDT ETHAN ([facility]) Name Value Range Interpretation Code Description Data Debra rce(s) Supporting Document(s) Amphetamines: negative Amphetamines: ETHAN ([facility]) THC negative Thc [facility] ([facility]) Cocaine: negative Cocaine: ETHAN ([facility]) Opiates: negative Opiates: ETHAN ([facility]) OXY positive Oxy ETHAN ([facility]) MTD positive Mtd ETHAN ([facility]) Barbiturates: negative Barbiturates: ETHAN ([facility]) PCP negative Pcp ETHAN ([facility]) Benzodiazepines: negative Benzodiazepines: AT JARRET ([facility]) Methamphetamine negative Methamphetamine ATHE NA ([facility]) ID Date Data Source [id number] 05/06/2020 12:32:00 PM EDT ETHAN ([facility]) Name Value Range Interpretation Code Description Data Debra rce(s) Supporting Document(s) Amphetamines: negative Amphetamines: ETHAN ([facility]) Cocaine: negative Cocaine: [facility] THC negative Thc [facility] ([facility] OXY positive Oxy [facility] ([facility]) Opiates: negative Opiates: ETHAN ([facility] MTD positive Mtd ETHAN ([facility]) Benzodiazepines: negative Benzodiazepines: AT JARRET ([facility]) Barbiturates: negative Barbiturates: ETHAN ([facility]) PCP negative Pcp ETHAN ([facility] Methamphetamine negative Methamphetamine ATHE NA ([facility]) ID Date Data Source [id number] 05/06/2020 12:32:00 PM EDT ETHAN ([facility]) Name Value Range Interpretation Code Description Data Debra rce(s) Supporting Document(s) Amphetamines: negative Amphetamines: ETHAN ([facility]) THC negative Thc [facility] ([facility]) Cocaine: negative Cocaine: ETHAN ([facility]) Barbiturates: negative Barbiturates: ETHAN ([facility]) MTD positive Mtd ETHAN ([facility]) Opiates: negative Opiates: ETHAN ([facility] OXY positive Oxy ETHAN ([facility] Methamphetamine negative Methamphetamine ATHE NA ([facility]) Benzodiazepines: negative Benzodiazepines: AT JARRET ([facility]) PCP negative Pcp ETHAN ([facility]) ID Date Data Source [id number] 05/06/2020 12:00:00 AM EDT ETHAN ([facility]) Name Value Range Interpretation Code Description Data Debra rce(s) Supporting Document(s) ID Date Data Source [id number] 05/06/2020 12:00:00 AM EDT ETHAN ([facility]) Name Value Range Interpretation Code Description Data Debra rce(s) Supporting Document(s) duloxetine ur CMP <5 >=5 Abnormal (applies to no n-numeric results) Duloxetine Ur CMP ETHAN ([facility]) tizanidine ur CMP 299 NG/mL >=5 normal Tizanidine Ur CMP ETHAN ([facility]) oxycodone ur CMP >41645 >=100 normal Oxycodone Ur CMP AT JARRET ([facility]) ID Date Data Source [id number] 05/06/2020 12:00:00 AM EDT KELLOGG ([facility]) Name Value Range Interpretation Code Description Data Debra rce(s) Supporting Document(s) sn reuptake inhibitors ur ql <5 >=5 Sn Reup take Inhibitors Ur Ql ETHAN ([facility]) ID Date Data Source [id number] 05/06/2020 12:00:00 AM EDT [place] ([facility]) Name Value Range Interpretation Code Description Data Debra rce(s) Supporting Document(s) Ethyl glucuronide [Mass/volume] in Urine by Confirmatory method <50 0 >=500 Ethyl Glucuronide Ur [facility] ([facility]) alcohol metabolites ur ql cfm <200 >=200 Alcoho l Metabolites Ur Ql Cfm [place] ([facility]) Buprenorphine [Presence] in Urine by Confirmatory method <1 >=1 Buprenorphine Ur Ql Cfm [place] ([facility]) Ethyl sulfate [Mass/volume] in Urine by Confirmatory method <200 >=200 Ethyl Sulfate Ur [facility] ([facility]) Tapentadol [Presence] in Urine by Confirmatory method <100 >=100 Tapentadol Ur Ql Cfm [place] ([facility]) Amphetamines [Presence] in Urine by Confirmatory method <0 >=0 Amphetamines Ur Ql Cfm [facility] ([facility]) Benzodiazepines [Presence] in Urine by Confirmatory method <50 >=50 Benzodiaz Ur Ql [facility] ([facility]) Cocaine [Presence] in Urine by Confirmatory method <50 >=50 Bze Ur Ql [facility] ([facility]) gabapentinpregabalin ur ql cf <5 >=5 Gabap entinpregabalin Ur Ql [facility] ([facility]) Oxymorphone [Mass/volume] in Urine by Confirmatory method 6270 NG/m L >=100 Oxymorphone Ur [facility] ([facility]) Oxycodone [Mass/volume] in Urine by Confirmatory method >7500 >=100 Oxycodone Ur [facility] ([facility]) Opiates [Presence] in Urine by Confirmatory method >=100 >=1 00 Opiates Ur Ql [facility] ([facility]) Meperidine [Presence] in Urine by Confirmatory method <100 >=100 Meperidine Ur Ql [facility] ([facility]) 6-Monoacetylmorphine (6-ERIKA) [Presence] in Urine by Confirma tory method <10 >=10 6Mam Ur Ql [facility] ([facility]) Methadone [Presence] in Urine by Confirmatory method <200 > =200 Methadone Ur Ql [facility] ([facility]) Carisoprodol+Meprobamate [Presence] in Urine by Screen method <200 >=200 Carisoprodol+meprob Ur Ql [facility] ([facility]) Fentanyl+Norfentanyl [Presence] in Urine by Confirmatory method <5 >=5 Fentanyl+norfentanyl Ur Ql [facility] ([facility]) Tramadol [Presence] in Urine by Confirmatory method <100 >= 100 Tramadol Ur Ql [facility] ([facility]) Cotinine [Presence] in Urine by Confirmatory method <125 >= 125 Cotinine Ur Ql [facility] ([facility]) Creatinine [Mass/volume] in Urine 130.3 mg/dL 20 - 370 [facility] pH of Urine 4.5 - 9.0 normal pH Ur [facility] ([facility]) ID Date Data Source [id number] 05/06/2020 12:00:00 AM EDT [facility] ([facility]) Name Value Range Interpretation Code Description Data Debra rce(s) Supporting Document(s) dehydrotizanidine ur cfm-mcnc 60 NG/mL >=5 Dehydr otizanidine Ur Cfm-mcnc [facility] ([facility]) tizanidine ur ql cfm >=5 >=5 Tizanidine Ur Q l Cfm [facility] ([facility]) tizanidine ur cfm-mcnc 238 NG/mL >=25 Tizanidine Ur Cfm-mcnc [facility] ([facility]) ID Date Data Source [id number] 05/06/2020 12:00:00 AM EDT [facility] ([facility]) Name Value Range Interpretation Code Description Data Debra rce(s) Supporting Document(s) ID Date Data Source [id number] 05/06/2020 12:00:00 AM EDT ETH[facility] ([facility]) Name Value Range Interpretation Code Description Data Debra rce(s) Supporting Document(s) ID Date Data Source [id number] 05/06/2020 12:00:00 AM EDT [facility] ([facility]) Name Value Range Interpretation Code Description Data Debra rce(s) Supporting Document(s) ID Date Data Source [id number] 05/06/2020 12:00:00 AM EDT [facility] ([facility]) Name Value Range Interpretation Code Description Data Debra rce(s) Supporting Document(s) tizanidine ur CMP 299 NG/mL >=5 normal Tizanidine Ur CMP [facility] ([facility]) duloxetine ur CMP <5 >=5 Abnormal (applies to no n-numeric results) Duloxetine Ur CMP [facility] ([facility]) oxycodone ur CMP >63699 >=100 normal Oxycodone Ur CMP AT [facility] ([facility]) ID Date Data Source [id number] 05/06/2020 12:00:00 AM EDT [place] ([facility]) Name Value Range Interpretation Code Description Data Debra rce(s) Supporting Document(s) sn reuptake inhibitors ur ql <5 >=5 Sn Reup take Inhibitors Ur Ql [facility]AN ([facility]) ID Date Data Source [id number] 05/06/2020 12:00:00 AM EDT [place] ([facility]) Name Value Range Interpretation Code Description Data Debra rce(s) Supporting Document(s) Buprenorphine [Presence] in Urine by Confirmatory method <1 >=1 Buprenorphine Ur Ql [facility] ([facility]) alcohol metabolites ur ql cfm <200 >=200 Alcoho l Metabolites Ur Ql [facility] ([facility]) Ethyl sulfate [Mass/volume] in Urine by Confirmatory method <200 >=200 Ethyl Sulfate Ur [facility] ([facility]) Ethyl glucuronide [Mass/volume] in Urine by Confirmatory method <50 0 >=500 Ethyl Glucuronide Ur [facility] ([facility]) Tapentadol [Presence] in Urine by Confirmatory method <100 >=100 Tapentadol Ur Ql [facility] ([facility]) Amphetamines [Presence] in Urine by Confirmatory method <0 >=0 Amphetamines Ur Ql [facility] ([facility]) gabapentinpregabalin ur ql cfm <5 >=5 Gabap entinpregabalin Ur Ql [facility] ([facility]) Benzodiazepines [Presence] in Urine by Confirmatory method <50 >=50 Benzodiaz Ur Ql [facility] ([facility]) Cocaine [Presence] in Urine by Confirmatory method <50 >=50 Bze Ur Ql [facility] ([facility]) Oxycodone [Mass/volume] in Urine by Confirmatory method >7500 >=100 [facility] Opiates [Presence] in Urine by Confirmatory method >=100 >=1 00 Opiates Ur Ql [facility] ([facility]) 6-Monoacetylmorphine (6-ERIKA) [Presence] in Urine by Confirma tory method <10 >=10 6Mam Ur Ql [facility] ([facility]) Oxymorphone [Mass/volume] in Urine by Confirmatory method 6270 NG/m L >=100 Oxymorphone Ur [facility] ([facility]) Meperidine [Presence] in Urine by Confirmatory method <100 >=100 Meperidine Ur Ql [facility] ([facility]) Methadone [Presence] in Urine by Confirmatory method <200 > =200 Methadone Ur Ql [facility] ([facility]) Carisoprodol+Meprobamate [Presence] in Urine by Screen method <200 >=200 Carisoprodol+meprob Ur Ql [facility] ([facility]) Fentanyl+Norfentanyl [Presence] in Urine by Confirmatory method <5 >=5 Fentanyl+norfentanyl Ur Ql [facility] ([facility]) pH of Urine 4.5 - 9.0 normal pH Ur [place] ([facility]) Tramadol [Presence] in Urine by Confirmatory method <100 >= 100 Tramadol Ur Ql [facility] ([facility]) Cotinine [Presence] in Urine by Confirmatory method <125 >= 125 Cotinine Ur Ql [facility] ([facility]) Creatinine [Mass/volume] in Urine 130.3 mg/dL 20 - 370 normal C reat Ur-nc [place] ([facility]) ID Date Data Source [id number] 05/06/2020 12:00:00 AM EDT ETHAN ([facility]) Name Value Range Interpretation Code Description Data Debra rce(s) Supporting Document(s) tizanidine ur ql cfm >=5 >=5 Tizanidine Ur Q l [facility] ([facility]) tizanidine ur [facility] 238 NG/mL >=25 Tizanidine Ur Cfm-mcnc ETHAN ([facility]) dehydrotizanidine ur cfm-mcnc 60 NG/mL >=5 Dehydr otizanidine Ur Cfm-mcnc ETHAN ([facility]) ID Date Data Source [id number] 05/06/2020 12:00:00 AM EDT [facility] ([facility]) Name Value Range Interpretation Code Description Data Debra rce(s) Supporting Document(s) ID Date Data Source [id number] 05/06/2020 12:00:00 AM EDT ETHAN ([facility]) Name Value Range Interpretation Code Description Data Debra rce(s) Supporting Document(s) ID Date Data Source [id number] 05/06/2020 12:00:00 AM EDT [facility] ([facility]) Name Value Range Interpretation Code Description Data Debra rce(s) Supporting Document(s) ID Date Data Source [id number] 05/05/2020 11:38:00 AM EDT [place] ([facility]) Name Value Range Interpretation Code Description Data Debra rce(s) Supporting Document(s) Hemoglobin A1c/Hemoglobin.total in Blood 5.1 Normal Hgb A1c [place] ([facility]) ID Date Data Source [id number] 03/14/2020 10:59:00 AM EDT [place] ([facility]) Name Value Range Interpretation Code Description Data Debra rce(s) Supporting Document(s) Reported Physicians See Note Reported Physicians [facility] [facility] Note: Reported Physicians:Ordering: Katja SoloAttending: Katja Mccall ID Date Data Source [id number] 03/14/2020 10:59:00 AM EDT [place] ([facility]) Name Value Range Interpretation Code Description Data Debra rce(s) Supporting Document(s) PROBNP 449 pg/mL Abnormal (applies to non-numeric res ults) PROBNP [place] ([facility] Note: The following cut-points have bee n suggested for the use of proBNP for the diagnostic evaluation of heart failure (HF) in patients with acute dyspnea: Modality Age Optimal Cut (years) Point Diagnosis (rule in HF) <50 450 pg/mL 50 - 75 900 pg/mL >75 1800 pg/mL Exclusion (rule out HF) Age independent 300 pg/mL Performed at: - [address] [id number] [employer]: Radha Arroyo MD, Phone: [phone] Observer: PROBNP PROBNP [id number] [phone] (A) ID Date Data Source [id number] 03/14/2020 10:59:00 AM EDT [employer] ([facility]) Name Value Range Interpretation Code Description Data Debra rce(s) Supporting Document(s) Thyrotropin [Units/volume] in Serum or Plasma by Detec tion limit <= 0.05 mIU/L 3.835 uIU/ML Normal TSH [facility] ([facility]) Note: Patients should not be tested for 72 hours post fluorescein dye angiography. A false depression of result may occur.Responsible Observer: TSH TSH 300.5500 (A) ID Date Data Source [id number] 03/14/2020 10:59:00 AM EDT [employer] [facility] ([facility]) Name Value Range Interpretation Code Description Data Debra rce(s) Supporting Document(s) Deprecated Cholesterol.in LDL/Cholestero l.in HDL [Mass ratio] in Serum or Plasma 3.1 Normal CHOL/HDL RATIO [facility] ([facility] ) Note: Responsible Observer: CHOL/HDL RAT IO CHOL/HDL RATIO 300.4700 (A) Cholesterol crystals [Presence] in Stone by Infrared spectroscop y 101 MG/DL Below low normal CHOLESTEROL [facility] ([facility]) Note: Responsible Observer: CHOL CHOLEST JORDAN 300.4350 (A) Cholesterol in HDL [Mass/volume] in Serum or Plasma ultracen trifugate 33 MG/DL Below low normal HDL CHOLESTEROL [facility] ([facility]) Note: Responsible Observer: HDL HDL CHOL ESTEROL 300.4600 (A) Triglyceride [Mass/volume] in Serum or Plasma 75 MG/DL N ormal TRIGLYCERIDES [facility] ([facility]) Note: Responsible Observer: TRIG TRIGLYC ERIDES 300.4300 (A) Cholesterol in LDL [Mass/volume] in Serum or Plasma by Direct as say 53 MG/DL Normal LDL CHOLESTEROL [facility] ([facility]) Note: Responsible Observer: LDL LDL CHOL ESTEROL 300.4400 (A) ID Date Data Source [id number] 03/14/2020 10:59:00 AM EDT [facility] ([facility]) Name Value Range Interpretation Code Description Data Debra rce(s) Supporting Document(s) BILIRUBIN,DIRECT 0.9 MG/DL Above high normal BILIRUBIN,DI RECT [facility] ([facility]) Note: Responsible Observer: DIRCT BILIRU BIN DIRECT BILIRUBIN 300.2725 (A) ID Date Data Source [id number] 03/14/2020 10:59:00 AM EDT [facility] ([facility]) Name Value Range Interpretation Code Description Data Debra rce(s) Supporting Document(s) Albumin [Mass/volume] in Synovial fluid 3.1 G/DL Normal ALBUMIN [facility] ([facility]) Note: Responsible Observer: ALB ALBUMIN 300.3900 (A) Albumin/Globulin [Mass Ratio] in Amniotic fluid 0.9 G/DL Below low normal ALB/GLOB RATIO [facility] ([facility]) Note: Responsible Observer: A/G RATIO AL B/GLOB RATIO 300.4100 (A) Alanine aminotransferase [Enzymatic activity/volume] in Seru m or Plasma 20 U/L Normal ALT [facility] ([facility]) Note: Responsible Observer: ALT/SGPT ALT 300.3100 (A) Alkaline phosphatase isoenzyme [Units/volume] in Serum or Plasma 90 U/L Normal ALKALINE PHOSPHATASE [facility] ([facility]) Note: Responsible Observer: ALK PHOS ALK KENNEDY PHOSPHATASE 300.3110 (A) Aspartate aminotransferase [Enzymatic activity/volume] in Serum or Plasma 36 U/L Normal AST [facility] ([facility]) Note: Responsible Observer: AST/SGOT AST 300.3050 (A) Urea nitrogen/Creatinine [Mass Ratio] in Serum or Plasma 17 Normal BUN/CREAT RATIO [facility] ([facility]) Note: Responsible Observer: BUN/CREAT RA LUPE BUN/CREAT RATIO 300.0450 (A) Bilirubin.total [Mass/volume] in Serum or Plasma 1.8 MG/DL Above high normal BILIRUBIN,TOTAL [place] ([facility]) Note: Responsible Observer: TOTAL BILI T OTAL BILIRUBIN 300.2700 (A) BLOOD UREA NITRO 12 MG/DL Normal [facility]RO [facility] ([facility]) Note: Responsible Observer: BUN BLOOD UR EA NITROGEN 300.0350 (A) CA 8.4 MG/DL Below low normal CA [place] ([facility]) Note: Responsible Observer: CA CALCIUM 300.2200 (A) Chloride [Moles/volume] in Serum, Plasma or Blood 103 MEQ/L Normal CHLORIDE [place] ([facility]) Note: Responsible Observer: CL CHLORIDE 300.0200 (A) Carbon dioxide, total [Moles/volume] in Serum or Plasma 28 MEQ/L Normal CARBON DIOXIDE [place] ([facility]) Note: Responsible Observer: CO2 CARBON D IOXIDE 300.0250 (A) Creatine/Creatinine [Mass Ratio] in Urine 0.7 MG/DL Meghann l CREATININE [place] ([facility]) Note: Responsible Observer: CREAT CREATI NINE 300.0400 (A) Globulin [Mass/volume] in Serum by calculation 3.3 G/DL Normal GLOBULIN [place] ([facility]) Note: Responsible Observer: GLOB GLOBULI N 300.4050 (A) GFR > 90.0 ML/MIN GFR [place] ([facility]) Note: Stage G1 - Normal or high [...] Blood 12 Normal ANION GAP [place] ([facility] [place]) Note: Responsible Observer: ANION GAP AN ION GAP 300.0300 (A) Glucose [Presence] in Urine 109 MG/DL Above high normal G LUCOSE [place] ([facility]) Note: Responsible Observer: GLU GLUCOSE 300.0500 (A) Potassium [Mass/volume] in Blood 4.1 MEQ/L Normal POT ASSIUM [place] ([facility]) Note: Responsible Observer: K POTASSIUM 300.0150 (A) Sodium [Moles/volume] in Serum, Plasma or Blood 139 MEQ/L Normal SODIUM [place] ([facility]) Note: Responsible Observer: NA SODIUM 3 00.0100 (A) Protein [Mass/volume] in Synovial fluid 6.4 G/DL Normal TOTAL PROTEIN [place] ([facility]) Note: Responsible Observer: TP TOTAL PRO TEIN 300.3750 (A) ID Date Data Source [id number] 03/14/2020 10:59:00 AM EDT [place] ([facility]) Name Value Range Interpretation Code Description Data Debra rce(s) Supporting Document(s) Deprecated Creatinine 127.8 MG/DL CREAT RANDOM URI NE [place] ([facility]) Note: No Normal Ranges Available for th is Procedure.Responsible Observer: UR CREAT UR CREATININE 200.3655 (A) Microalbumin [Mass/volume] in Urine < 3.0 MG/L MICROALBUMIN,URINE [place] ([facility]) Note: Responsible Observer: UR MICROALB RND UR MICROALBUMIN RANDOM 200.4000 (A) Microalbumin/Creatinine [Mass Ratio] in Urine 2.3 UG/MG_CR Normal MICROALBUM/CREATININE RATIO,UR [place] ([facility]) Note: Responsible Observer: UR MICROALB/ CRE UR MICROALBUMIN/CREAT RATIO 200.4100 (A) ID Date Data Source [id number] 03/14/2020 10:59:00 AM EDT [place] ([facility]) Name Value Range Interpretation Code Description Data Debra rce(s) Supporting Document(s) APPEARANCE,UR CLEAR APPEARANCE,UR [facility] ([facility] Note: Responsible Observer: UR APPEAR UR APPEARANCE 200.0250 (A) BILIRUBIN,UR NEGATIVE BILIRUBIN,UR [place] ([facility]) Note: Responsible Observer: UR BILI UR B ILIRUBIN 200.0750 (A) COLOR,UR YELLOW COLOR,UR [facility] Note: Responsible Observer: UR COLOR UR COLOR 200.0200 (A) GLUCOSE, UR NEGATIVE MG/DL GLUCOSE, UR [facility] [facility] Note: Responsible Observer: UR GLU UR GL UCOSE 200.0500 (A) KETONES,UR NEGATIVE MG/DL KETONES,UR [place] ([facility]) Note: Responsible Observer: UR KETO UR K ETONES 200.0600 (A) LEUKOCYTE ESTERASE ,UR NEGATIVE LEUKOCYTE EST ERASE ,UR [place] ([facility]) Note: Responsible Observer: UR NITHYA ALDO ASE UR LEUKOCYTE ESTERASE 200.0725 (A) NITRATE,UR NEGATIVE NITRATE,UR [place] ([facility]) Note: Responsible Observer: UR NIT UR NI TRATE 200.0700 (A) OCCULT BLOOD,UR NEGATIVE OCCULT BLOOD,UR [place] ([facility]) Note: Responsible Observer: UR OCLT BLD UR OCCULT BLOOD 200.0650 (A) PH,UR 7.0 PH,UR [place] ([facility]) Note: Responsible Observer: UR PH UR PH 200.0350 (A) PROTEIN,UR NEGATIVE MG/DL PROTEIN,UR [place] ([facility]) Note: Responsible Observer: UR PROT UR P ROTEIN 200.0450 (A) SPECIFIC GRAVITY,UR 1.011 Normal SPECIFIC GRAVITY,UR [place] ([facility]) Note: Responsible Observer: SG URINE SPE CIFIC GRAVITY,UR 200.0410 (A) UROBILINOGEN,UR 4.0 EU_MG/DL Abnormal (applies to non- numeric results) UROBILINOGEN,UR [place] ([facility]) Note: Responsible Observer: UR URO UR UR OBILINOGEN 200.0900 (A) ID Date Data Source [id number] 03/14/2020 10:59:00 AM EDT [place] ([facility]) Name Value Range Interpretation Code Description Data Debra rce(s) Supporting Document(s) BASO % (AUTO) 0.9 % Normal BASO % (AUTO) [place] ([facility]) Note: Responsible Observer: BASO % (AUTO ) BASO % (AUTO) 100.1250 (A) BASO # (AUTO) 0.07 10\\^3/uL Normal BASO # (AUTO) [place] ([facility]) Note: Responsible Observer: BASO # (AUTO ) BASO # (AUTO) 100.1500 (A) EOS # (AUTO) 0.20 10\\^3/uL Normal EOS # (AUTO) [place] ( [facility]) Note: Responsible Observer: EOS # (AUTO) EOS # (AUTO) 100.1450 (A) EOS % (AUTO) 2.6 % Normal EOS % (AUTO) [place] ([facility]) Note: Responsible Observer: EOS % (AUTO) EOS % (AUTO) 100.1200 (A) GRAN # (AUTO) 5.17 10\\^3/uL Normal GRAN # (AUTO) [place] ([facility]) Note: Responsible Observer: GRAN # (AUTO ) GRAN #(AUTO) 100.1325 (A) GRAN % (AUTO) 68.3 % Normal GRAN % (AUTO) [place] ([facility]) Note: Responsible Observer: GRAN % (AUTO ) GRAN % (AUTO) 100.1000 (A) Hematocrit [Volume Fraction] of Blood by Automated count 37.4 % Below low normal HEMATOCRIT [place] ([facility]) Note: Responsible Observer: HCT HEMATOCR IT 100.0400 (A) Hemoglobin [Mass/volume] in Blood 13.1 G/DL Normal HE MOGLOBIN [place] ([facility]) Note: Responsible Observer: HGB HEMOGLOB IN 100.0300 (A) IG % (AUTO) 0.3 % IG % (AUTO) [place] ([facility]) Note: Responsible Observer: IG % (AUTO) IG % (AUTO) 100.1255 (A) IG # (AUTO) 0.0 10\\^3/uL IG # (AUTO) [place] ([facility]) Note: Responsible Observer: IG # (AUTO) IG # (AUTO) 100.1260 (A) LYMPH # (AUTO) 1.5 k/uL Normal LYMPH # (AUTO) [place] ( [facility]) Note: Responsible Observer: LYMPH # (AUT O) LYMPH # (AUTO) 100.1350 (A) LYMPH % (AUTO) 19.5 % Below low normal LYMPH % (AUTO) [place] ([facility]) Note: Responsible Observer: LYMPH % (AUT O) LYMPH % (AUTO) 100.1100 (A) Erythrocyte mean corpuscular hemoglobin [Entitic mass] by Automated count 31.3 PG Normal MCH [place] ([facility]) Note: Responsible Observer: MCH MCH 100 .0600 (A) Erythrocyte mean corpuscular hemoglobin concentration [Mass/volume] by Automated count 35.0 G/DL Normal MCHC [place] ([facility]) Note: Responsible Observer: MCHC MCHC 1 00.0650 (A) MONO # (AUTO) 0.64 k/uL Normal MONO # (AUTO) [place] ([facility]) Note: Responsible Observer: MONO # (AUTO ) MONO # (AUTO) 100.1400 (A) Erythrocyte mean corpuscular volume [Entitic volume] by Auto mated count 89.3 FL Normal MCV [facility] ([facility]) Note: Responsible Observer: MCV MCV 100 .0550 (A) MONO % (AUTO) 8.4 % Normal MONO % (AUTO) [place] ([facility]) Note: Responsible Observer: MONO % (AUTO ) MONO% (AUTO) 100.1150 (A) MPV 11.8 FL Normal MPV [place] ([facility]) Note: Responsible Observer: MPV MPV 100 .0950 (A) Platelets [#/volume] in Plasma by Automated count 104 10\\^3/uL Below low normal PLATELET COUNT [facility] ([facility]) Note: Responsible Observer: PLT PLATELET COUNT 100.0850 (A) Erythrocytes [#/volume] in Blood by Automated count 4.19 10\\^6/u L Below low normal RED BLOOD COUNT [facility] ([facility]) Note: Responsible Observer: RBC RED BLOO D COUNT 100.0250 (A) Erythrocyte distribution width [Ratio] by Automated count 14.0 % Normal RDW [facility] ([facility]) Note: Responsible Observer: RDW RDW 100 .0700 (A) Leukocytes [#/volume] in Blood by Automated count 7.58 10\\^3/uL Normal WHITE BLOOD COUNT [facility] ([facility]) Note: Responsible Observer: WBC WHITE BL OOD COUNT 100.0150 (A) ID Date Data Source [id number] 03/14/2020 01:14:00 PM EDT [facility] Has Patient Fasted For The Past 12 [...] WHITE BLOOD COUNT 7.58 10^3/uL 4.00-10.50 N [facility] RED BLOOD COUNT 4.19 10^6/uL 4.30-5.80 L [facility] HEMOGLOBIN 13.1 G/DL 13.0-17.5 N [facility] HEMATOCRIT 37.4 % 41.0-53.0 L [facility] MCV 89.3 FL 80.0-100.0 N [facility] MCH 31.3 PG 27.0-34.0 N [facility] MCHC 35.0 G/DL 32-36 N [facility] RDW 14.0 % 11.5-14.5 N [facility] PLATELET COUNT 104 10^3/uL 130-400 L [facility] MPV 11.8 FL 8.7-13.2 N [facility] GRAN % (AUTO) 68.3 % 42.0-75.0 N [facility] LYMPH % (AUTO) 19.5 % 20.0-51.0 L [facility] MONO % (AUTO) 8.4 % 2.0-15.0 N [facility] EOS % (AUTO) 2.6 % 0.0-11.0 N [facility] BASO % (AUTO) 0.9 % 0.0-2.0 N [facility] IG % (AUTO) 0.3 % 1.00-5.00 [facility] IG # (AUTO) 0.0 10^3/uL <0.5 [facility] GRAN # (AUTO) 5.17 10^3/uL 1.50-6.50 N [facility] LYMPH # (AUTO) 1.5 k/uL 1.0-5.0 N [facility] MONO # (AUTO) 0.64 k/uL 0.20-1.50 N [facility] EOS # (AUTO) 0.20 10^3/uL 0.00-1.10 N [facility] BASO # (AUTO) 0.07 10^3/uL 0.00-0.20 N [facility] ID Date Data Source [id number] 03/14/2020 01:27:00 PM EDT [facility] Has Patient Fasted For The Past 12 [...] Debra rce(s) Supporting Document(s) COLOR,UR YELLOW YELLOW [facility] APPEARANCE,UR CLEAR CLEAR [facility] PH,UR 7.0 5.0-8.0 [facility] SPECIFIC GRAVITY,UR 1.011 1.002-1.035 N [facility] PROTEIN,UR NEGATIVE MG/DL NEGATIVE [facility] GLUCOSE, UR NEGATIVE MG/DL NEGATIVE [facility] KETONES,UR NEGATIVE MG/DL NEGATIVE [facility] OCCULT BLOOD,UR NEGATIVE NEGATIVE [facility] NITRATE,UR NEGATIVE NEGATIVE [facility] LEUKOCYTE ESTERASE ,UR NEGATIVE NEGATIVE [facility] BILIRUBIN,UR NEGATIVE NEGATIVE [facility] UROBILINOGEN,UR 4.0 EU MG/DL NEG-0-1.0 [facility] ID Date Data Source [id number] 03/14/2020 01:42:00 PM EDT [facility] Has Patient Fasted For The Past 12 [...] Supporting Document(s) CREAT RANDOM URINE 127.8 MG/DL [facility] No Normal Ranges Available for this Pro cedure. MICROALBUMIN,URINE < 3.0 MG/L [facility] MICROALBUM/CREATININE RATIO,UR 2.3 UG/MG CR 0.0-30.0 N [facility] ID Date Data Source [id number] 03/17/2020 03:09:00 PM EDT [facility] Has Patient Fasted For The Past 12 [...] Supporting Document(s) PROBNP 449 pg/mL 0-376 A [facility] The following cut-points have been sugg ested for the use of proBNP for the diagnostic evaluation of heart failure (HF) in patients with acute dyspnea: Modality Age Optimal Cut (years) Point Diagnosis (rule in HF) <50 450 pg/mL 50 - 75 900 pg/mL >75 1800 pg/mL Exclusion (rule out HF) Age independent 300 pg/mL Performed at: - [facility] [id number] Se[employer] Computer: Radha Arroyo MD, Phone: [phone] ID Date Data Source [id number] 03/14/2020 01:42:00 PM EDT [facility] Has Patient Fasted For The Past 12 [...] Supporting Document(s) SODIUM 139 MEQ/L 135-145 N [facility] POTASSIUM 4.1 MEQ/L 3.5-5.3 N [facility] CHLORIDE 103 MEQ/L 94-110 N [facility] CARBON DIOXIDE 28 MEQ/L 22-33 N [facility] ANION GAP 12 5-16 N [facility] BLOOD UREA NITRO 12 MG/DL 7-25 N [facility] CREATININE 0.7 MG/DL 0.6-1.4 N [facility] GFR > 90.0 ML/MIN [facility] Stage G1 - Normal or high kidney functi on The GFR is an estimate of the Glomerular Filtration Rate. It is an aid to assess a patient's renal function. It is not a conclusive diagnosis of kidney disease. GFR normal is >=90 The MDRD GFR calculation is considered valid between the ages of 18 and 75 years only. BUN/CREAT RATIO 17 8-36 N [facility] GLUCOSE 109 MG/DL 70-100 H [facility] CA 8.4 MG/DL 8.7-10.5 L [facility] BILIRUBIN,TOTAL 1.8 MG/DL 0.1-1.3 H [facility] AST 36 U/L 5-40 N [facility] ALT 20 U/L 5-48 N [facility] ALKALINE PHOSPHATASE 90 U/L 40-140 N [facility] alth TOTAL PROTEIN 6.4 G/DL 5.9-8.3 N [facility] ALBUMIN 3.1 G/DL 3.0-5.1 N [facility] GLOBULIN 3.3 G/DL 1.5-3.5 N [facility] ALB/GLOB RATIO 0.9 G/DL 1.0-3.0 L [facility] ID Date Data Source [id number] 03/14/2020 01:42:00 PM EDT [facility] Has Patient Fasted For The Past 12 [...] Supporting Document(s) BILIRUBIN,DIRECT 0.9 MG/DL 0-0.4 H [facility] ID Date Data Source [id number] 03/14/2020 01:42:00 PM EDT [facility] Has Patient Fasted For The Past 12 [...] Supporting Document(s) TRIGLYCERIDES 75 MG/DL 45-150 N [facility] CHOLESTEROL 101 MG/DL 125-200 L [facility] LDL CHOLESTEROL 53 MG/DL 50-130 N [facility] HDL CHOLESTEROL 33 MG/DL 39-96 L [facility] CHOL/HDL RATIO 3.1 0-4.9 N [facility] ID Date Data Source [id number] 03/14/2020 01:42:00 PM EDT [facility] Has Patient Fasted For The Past 12 [...] Supporting Document(s) TSH 3.835 uIU/ML 0.470-4.200 N [facility] Patients should not be tested for 74 ho urs post fluorescein dye angiography. A false depression of result may occur. ID Date Data Source [id number] 12/07/2019 12:31:13 PM EDT [facility] Name Value Range Interpretation Code Description Data Debra rce(s) Supporting Document(s) POC GLUCOSE 193 mg/dL (70-99) H [facility] NOTIFIED NURSEPERFORMED BY CLINICAL S ZAY ID Date Data Source [id number] 12/07/2019 12:03:08 PM EDT [facility] Name Value Range Interpretation Code Description Data Debra rce(s) Supporting Document(s) SODIUM 137 mmol/L (136-145) [facility] POTASSIUM 4.1 mmol/L (3.6-5.2) [facility] CHLORIDE 100 mmol/L (100-108) [facility] CO2 31 mmol/L (22-31) [facility] ANION GAP 6 mmol/L (7-16) L [facility] UREA NITROGEN 10 mg/dL (7-24) [facility] CREATININE 0.82 mg/dL (0.80-1.30) [facility] BUN/CREAT RATIO 12.2 RATIO (10.0-20.0) [facility] GLUCOSE 176 mg/dL (70-99) H [facility] CALCIUM 8.5 mg/dL (8.4-10.2) [facility] GFR >60 ml/min/1.73m2 (>59) [facility] GFR ( AMER) >60 ml/min/1.73m2 (>59) [facility] GFR INTERPRETATION [facility] --NORMAL KIDNEY FUNCTION OR MILD DISEASE - GFR >OR= 60CHRONIC KIDNEY DISEASE - GFR 15 - 59RENAL FAILURE - GFR <15 Est. GFR calculation based on the MDRDstudy equation, which assumes a steadystate for creatinine. Est. GFR should notbe used for medication dosing. ID Date Data Source [id number] 12/07/2019 08:49:27 AM EDT [facility] Name Value Range Interpretation Code Description Data Debra rce(s) Supporting Document(s) POC GLUCOSE 110 mg/dL (70-99) H [facility] PERFORMED BY CLINICAL STAFF ID Date Data Source [id number] 12/06/2019 10:10:17 PM EDT [facility] Name Value Range Interpretation Code Description Data Debra rce(s) Supporting Document(s) POC GLUCOSE 147 mg/dL (70-99) H [facility] NOTIFIED NURSEPERFORMED BY CLINICAL S TAFF ID Date Data Source [id number] 12/06/2019 06:39:39 PM EDT [facility] Name Value Range Interpretation Code Description Data Debra rce(s) Supporting Document(s) POC GLUCOSE 191 mg/dL (70-99) H [facility] PERFORMED BY CLINICAL STAFF ID Date Data Source [id number] 12/06/2019 03:03:11 PM EDT [facility] Name Value Range Interpretation Code Description Data Debra rce(s) Supporting Document(s) POC GLUCOSE 135 mg/dL (70-99) H [facility] PERFORMED BY CLINICAL STAFF ID Date Data Source [id number] 12/06/2019 10:57:00 AM EDT [facility] Name Value Range Interpretation Code Description [...] ssociates of Y) ID Date Data Source [id number] 12/06/2019 09:16:53 AM EDT [facility] Name Value Range Interpretation Code Description Data Debra rce(s) Supporting Document(s) POC GLUCOSE 118 mg/dL (70-99) H [facility] PERFORMED BY CLINICAL STAFF ID Date Data Source [id number] 12/06/2019 07:53:42 AM EDT [facility] Name Value Range Interpretation Code Description Data Debra rce(s) Supporting Document(s) POC GLUCOSE 120 mg/dL (70-99) H [facility] PERFORMED BY CLINICAL STAFF ID Date Data Source [id number] 12/08/2019 12:50:25 PM EDT [facility] Name Value Range Interpretation Code Description Data Debra rce(s) Supporting Document(s) TONI SCREEN @ (NEG) [facility] [place] ID Date Data Source [id number] 12/06/2019 06:51:21 AM EDT [facility] Name Value Range Interpretation Code Description Data Debra rce(s) Supporting Document(s) PHOSPHORUS 2.7 mg/dL (2.5-4.5) [facility] ID Date Data Source [id number] 12/06/2019 06:51:21 AM EDT [facility] Name Value Range Interpretation Code Description Data Debra rce(s) Supporting Document(s) SODIUM 140 mmol/L (136-145) [facility] POTASSIUM 3.6 mmol/L (3.6-5.2) [facility] CHLORIDE 102 mmol/L (100-108) [facility] CO2 33 mmol/L (22-31) H [facility] ANION GAP 5 mmol/L (7-16) L [facility] UREA NITROGEN 9 mg/dL (7-24) [facility] CREATININE 0.69 mg/dL (0.80-1.30) L [facility] BUN/CREAT RATIO 13.0 RATIO (10.0-20.0) [facility] GLUCOSE 119 mg/dL (70-99) H [facility] CALCIUM 8.0 mg/dL (8.4-10.2) L [facility] TOTAL PROTEIN 5.7 g/dL (6.4-8.2) L [facility] ALBUMIN 2.2 g/dL (3.2-4.5) L [facility] GLOBULIN 3.5 g/dL (2.7-4.3) [facility] ALB/GLOB RATIO 0.6 RATIO [facility] ALKALINE PHOSPHATASE 85 U/L (45-117) [facility] BILIRUBIN,TOTAL 1.7 mg/dL (0.0-1.0) H [facility] PLEASE NOTE:Total bilirubin results may be falselyelevated in patients taking Eltrombopag. AST (SGOT) 37 U/L (11-39) [facility] ALT (SGPT) 20 U/L (12-78) [facility] GFR >60 ml/min/1.73m2 (>59) [facility] GFR ( AMER) >60 ml/min/1.73m2 (>59) [facility] GFR INTERPRETATION [facility] --NORMAL KIDNEY FUNCTION OR MILD DISEASE - GFR >OR= 60CHRONIC KIDNEY DISEASE - GFR 15 - 59RENAL FAILURE - GFR <15 Est. GFR calculation based on the MDRDstudy equation, which assumes a steadystate for creatinine. Est. GFR should notbe used for medication dosing. ID Date Data Source [id number] 12/06/2019 06:51:21 AM EDT [facility] Name Value Range Interpretation Code Description Data Debra rce(s) Supporting Document(s) MAGNESIUM 1.7 mg/dL (1.7-2.4) [facility] ID Date Data Source [id number] 12/06/2019 06:33:13 AM EDT [facility] Name Value Range Interpretation Code Description Data Debra rce(s) Supporting Document(s) PT 13.9 s (9.2-11.9) H [facility] INR 1.35 [facility] SUGGESTED THERAPEUTIC RANGES USING INR F ORSTABILIZED ANTICOAGULATED PATIENTS:STANDARD DOSE THERAPY INR 2.0-3.0 DVT, PE, PREVENT DVT OR EMBOLISMHIGH DOSE THERAPY INR 2.5-3.5 PREVENT EMBOLISM FROM MECHANICAL HEART VALVE ID Date Data Source [id number] 12/06/2019 06:23:55 AM EDT [facility] Name Value Range Interpretation Code Description Data Debra rce(s) Supporting Document(s) WBC 7.1 10*3/uL (4.1-11.0) [facility] [place] RBC 3.97 10*6/uL (4.60-6.10) L [facility] HGB 13.0 g/dL (13.5-18.0) L [facility] HCT 37.1 % (41.0-53.0) L [facility] MCV 93.3 fL (80.0-95.0) [facility] MCH 32.7 pg (27.0-32.0) H [facility] MCHC 35.1 g/dL (32.0-36.0) [facility] RDW 14.4 % (10.5-14.5) [facility] PLT 104 10*3/uL (150-450) L [facility] MPV 8.5 fL (7.1-10.7) [facility] ID Date Data Source [id number] 12/05/2019 09:22:49 PM EDT [facility] Name Value Range Interpretation Code Description Data Debra rce(s) Supporting Document(s) POC GLUCOSE 209 mg/dL (70-99) H [facility] NOTIFIED NURSEPERFORMED BY CLINICAL S TAFF ID Date Data Source [id number] 12/05/2019 05:10:58 PM EDT [facility] Name Value Range Interpretation Code Description Data Debra rce(s) Supporting Document(s) POC GLUCOSE 152 mg/dL (70-99) H [facility] NOTIFIED NURSEPERFORMED BY CLINICAL S TAFF ID Date Data Source [id number] 12/05/2019 02:27:17 PM EDT [facility] Name Value Range Interpretation Code Description Data Debra rce(s) Supporting Document(s) POC GLUCOSE 180 mg/dL (70-99) H [facility] PERFORMED BY CLINICAL STAFF ID Date Data Source [id number] 12/05/2019 09:36:00 AM EDT [facility] DATE OF EXAM: 12/05/2019US Abdomen [...] direction of flow. Professional interpretation performed at [facility] .End of diagnostic report for accession: [id number] Interpreted: Xavi Mariscal MDTranscribed: 12/05/2019 09:33 AMSigned: 12/05/2019 09:36 AM Xavi Mariscal MD [facility] # [id number] BILL # [id number] Name Value Range Interpretation Code Description Data Debra rce(s) Supporting Document(s) ID Date Data Source [id number] 12/05/2019 09:36:00 AM EDT [facility] DATE OF EXAM: 12/05/2019US Abdomen [...] direction of flow. Professional interpretation performed at [facility] .End of diagnostic report for accession: [id number] Interpreted: Xavi Mariscal MDTranscribed: 12/05/2019 09:33 AMSigned: 12/05/2019 09:36 AM Xavi Mariscal MD [facility] # [id number] [facility] # [id number] Name Value Range Interpretation Code Description Data Debra rce(s) Supporting Document(s) ID Date Data Source [id number] 12/05/2019 08:02:35 AM EDT [facility] Name Value Range Interpretation Code Description Data Debra rce(s) Supporting Document(s) POC GLUCOSE 106 mg/dL (70-99) H [facility] PERFORMED BY CLINICAL STAFF ID Date Data Source [id number] 12/05/2019 07:08:37 AM EDT [facility] Name Value Range Interpretation Code Description Data Debra rce(s) Supporting Document(s) SODIUM 140 mmol/L (136-145) [facility] POTASSIUM 3.0 mmol/L (3.6-5.2) L [facility] CHLORIDE 100 mmol/L (100-108) [facility] CO2 32 mmol/L (22-31) H [facility] ANION GAP 8 mmol/L (7-16) [facility] UREA NITROGEN 9 mg/dL (7-24) [facility] CREATININE 0.60 mg/dL (0.80-1.30) L [facility] BUN/CREAT RATIO 15.0 RATIO (10.0-20.0) [facility] GLUCOSE 118 mg/dL (70-99) H [facility] CALCIUM 7.9 mg/dL (8.4-10.2) L [facility] TOTAL PROTEIN 5.5 g/dL (6.4-8.2) L [facility] ALBUMIN 2.1 g/dL (3.2-4.5) L [facility] GLOBULIN 3.4 g/dL (2.7-4.3) [facility] ALB/GLOB RATIO 0.6 RATIO [facility] ALKALINE PHOSPHATASE 84 U/L (45-117) [facility] BILIRUBIN,TOTAL 1.6 mg/dL (0.0-1.0) H [facility] PLEASE NOTE:Total bilirubin results may be falselyelevated in patients taking Eltrombopag. AST (SGOT) 29 U/L (11-39) [facility] ALT (SGPT) 18 U/L (12-78) [facility] GFR >60 ml/min/1.73m2 (>59) [facility] GFR ( AMER) >60 ml/min/1.73m2 (>59) [facility] GFR INTERPRETATION [facility] --NORMAL KIDNEY FUNCTION OR MILD DISEASE - GFR >OR= 60CHRONIC KIDNEY DISEASE - GFR 15 - 59RENAL FAILURE - GFR <15 Est. GFR calculation based on the MDRDstudy equation, which assumes a steadystate for creatinine. Est. GFR should notbe used for medication dosing. ID Date Data Source [id number] 12/05/2019 06:33:50 AM EDT [facility] Name Value Range Interpretation Code Description Data Debra rce(s) Supporting Document(s) WBC 7.4 10*3/uL (4.1-11.0) [facility] [place] RBC 3.86 10*6/uL (4.60-6.10) L [facility] HGB 12.6 g/dL (13.5-18.0) L [facility] HCT 35.8 % (41.0-53.0) L [facility] MCV 92.8 fL (80.0-95.0) [facility] MCH 32.7 pg (27.0-32.0) H [facility] MCHC 35.3 g/dL (32.0-36.0) [facility] RDW 14.6 % (10.5-14.5) H [facility] PLT 112 10*3/uL (150-450) L [facility] MPV 8.9 fL (7.1-10.7) [facility] ID Date Data Source [id number] 12/04/2019 10:13:00 PM EDT [facility] [place] [address] [address] [place], [place] [address]RGPSBWU NAME: MIKEY TAPIADATE OF : 2REPORT: ADMISSION NOTEPATIENT NUMBER: [id number] STATUS: IPMEDICAL RECORD NUMBER: [id number] OF ADMISSION: 12/04/2019ROOM: [address] [place] [address] CARE PROVIDER: BLANQUITA Lamb COMPLAINT ON ADMISSION: [...] splenomegaly, the patient is being admitted to [facility] for urgent paracentesis and we will [...] 04/2019 was 7.8. 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 He has been scheduled for paracentesis [...] JOBY Sanchezictated: 12/04/2019 19:05DT: 12/04/2019 19:14Job #: [id number]: Dominique LambNOTE: [facility] computer generated reports are notconfirmed or authenticated unless they are signed by the providerElectronically Authenticated by:GENEVIEVE EDWARDS MD On 12/04/2019 10:13 PM EDT Name Value Range Interpretation Code Description Data Debra rce(s) Supporting Document(s) ID Date Data Source [id number] 12/10/2019 05:18:32 PM EDT [facility] Name Value Range Interpretation Code Description Data [facility] rce(s) Supporting Document(s) SMOOTH MUS IGG [...] hepatitis or chronic active hepatitis. Performed by [facility], [address] [place] [phone] [email or web address].[email or web address], Nazario Snider MD, Lab. Director INTERPRETIVE INFORMATION: Smooth Muscle Ab, IgG Titer Less than 1:20 ........ Negative - No antibody detected. 1:20 - 1:80 .......... Weak Positive - Suggest repeat in two to three weeks with fresh specimen. 1:160 or greater ...... Positive - Suggestive of autoimmune hepatitis or chronic active hepatitis. Performed by [facility], [address] [place] [phone] [email or web address].[email or web address], Nazario Snider MD, Lab. Director ID Date Data Source [id number] 12/09/2019 03:26:46 PM EDT [facility] Name Value Range Interpretation Code Description Data Debra rce(s) Supporting Document(s) HEP DELTA VIRUS AB Lab [facility] NegativeReference range: Negative No ant ibody to Hepatitis Delta agent was detected. Order anti-HDV testing only when Hepatitis B virus infection has been confirmed. INTERPRETIVE INFORMATION: Hepatitis Delta Ab Test developed and characteristics determined by [facility]. See Compliance Statement D: [facility]/ Performed by [facility], [address] [place] [phone] [email or web address].[email or web address], Nazario Snider MD, Lab. Director ID Date Data Source [id number] 12/09/2019 12:46:12 AM EDT [facility] Name Value Range Interpretation Code Description Data Debra rce(s) Supporting Document(s) FACTIN IGG 26 H [facility] Reference range: 0 to 19Unit: Units INTE [...] suspicion for AIH is strong. Performed by [facility], [address] [facility] [place] [address] [phone] www.[email or web address], Nazario Snider MD, Lab. Director ID Date Data Source [id number] 12/09/2019 12:12:27 AM EDT [facility] Name Value Range Interpretation Code Description Data Debra rce(s) Supporting Document(s) HEPATITIS Be AG [facility] NegativeReference range: Negative Perfor med by [facility], [address] [place] [address] [email or web address].[email or web address], Nazario Snider MD, Lab. Director ID Date Data Source [id number] 12/08/2019 12:50:15 PM EDT [facility] Name Value Range Interpretation Code Description Data Debra rce(s) Supporting Document(s) TONI SCREEN @ (NEG) [facility] [place] ID Date Data Source [id number] 12/07/2019 03:01:13 PM EDT [facility] Name Value Range Interpretation Code Description Data Debra rce(s) Supporting Document(s) AFP-TUMOR MARKER @ 4.7 ng/mL (<6.0) Lab [facility] [place] ASSAY BY IMMUNOCHEMILUMINOMETRIC ASSAYON THE SIEMENS IMMULITE 2000 XPi. VALUESOBTAINED WITH DIFFERENT METHODS OR KITSCANNOT BE USED INTERCHANGEABLY FOR PATIENTMONITORING. RESULTS CANNOT BE INTERPRETEDAS ABSOLUTE EVIDENCE OF THE PRESENCE ORABSENCE OF MALIGNANCY. THE TEST IS NOTINTERPRETABLE IN . AFP CAN BE INCREASED IN A VARIETY OFBENIGN DISEASES. SPECIFICITY FOR THE DETECTION OF MALIGNANCY INCREASES WITHINCREASING LEVELS. ID Date Data Source [id number] 12/07/2019 01:14:52 PM EDT [facility] Name Value Range Interpretation Code Description Data Debra rce(s) Supporting Document(s) F ACTIN IGG AB @ (<20) [facility] ID Date Data Source [id number] 12/07/2019 01:13:17 PM EDT [facility] Name Value Range Interpretation Code Description Data Debra rce(s) Supporting Document(s) MITOCHONDRIAL IGG @ 3.9 units (<20.1) [facility] INTERPRET ATION OF RESULTS: < 20.1 UNITS PGATPXCT57.1-24.9 UNITS EQUIVOCAL > 24.9 UNITS POSITIVE The following result was obtained withthe Collect QUANTA Lite M2 EP(MIT3) [place].Results obtained with other manufacturers'assay methods may not be used interchangeably.The magnitude of the reported IgG levelscannot be correlated to an endpoint titer. ID Date Data Source [id number] 12/04/2019 07:32:43 PM EDT [facility] Name Value Range Interpretation Code Description Data Debra rce(s) Supporting Document(s) HEMOGLOBIN A1C @ 7.2 % (4.0-6.0) H [facility] [place] Performed using Siemens [place] immunoassa y.Care must be taken when interpreting [id number] in patients with a hemoglobin variantor decreased erythrocyte lifespan. Values 5.7 - 6.4% suggest prediabetes.Values >=6.5% are diagnostic for diabetes.REFERENCE: DIABETES CARE 2018: 41(S13-S27).PERFORMED AT [address] [place] [phone] EST AVERAGE GLUCOSE 160 mg/dL [facility] ID Date Data Source [id number] 12/04/2019 07:24:02 PM EDT [facility] [place] Name Value Range Interpretation Code Description Data Debra rce(s) Supporting Document(s) HEPATITIS B S AG @ (NEG) [facility] ID Date Data Source [id number] 12/04/2019 07:24:02 PM EDT [facility] Name Value Range Interpretation Code Description Data [facility] rce(s) Supporting Document(s) HEP B CORE AB TOTAL @ (NEG) [facility] [place] ID Date Data Source [id number] 12/04/2019 07:24:02 PM EDT [facility] Name Value Range Interpretation Code Description Data Debra rce(s) Supporting Document(s) HEPATITIS C AB @ (NEG) [facility] NOT INFECT ED WITH HCV, UNLESS RECENTINFECTION IS SUSPECTED OR OTHER EVIDENCEEXISTS TO INDICATE HCV INFECTION. ID Date Data Source [id number] 12/04/2019 06:40:40 PM EDT [facility] Name Value Range Interpretation Code Description Data Debra rce(s) Supporting Document(s) CERULOPLASMIN @ 26.2 mg/dL (20-60) [facility] ID Date Data Source [id number] 12/04/2019 06:40:40 PM EDT [facility] Name Value Range Interpretation Code Description Data Debra rce(s) Supporting Document(s) A 1 ANTITRYPSIN @ 245.0 mg/dL (90-200) H [facility] ID Date Data Source [id number] 12/04/2019 04:42:37 PM EDT [facility] Name Value Range Interpretation Code Description Data Debra rce(s) Supporting Document(s) TOTAL PROTEIN 6.0 g/dL (6.4-8.2) L [facility] ID Data Source [id number] 12/04/2019 04:42:37 PM EDT [facility] Name Value Range Interpretation Code Description Data Debra rce(s) Supporting Document(s) LDH 196 U/L (84-246) [facility] ID Data Source [id number] 12/04/2019 04:42:37 PM EDT [facility] Name Value Range Interpretation Code Description Data Debra rce(s) Supporting Document(s) ALBUMIN 2.3 g/dL (3.2-4.5) L [facility] ID Date Data Source [id number] 12/04/2019 04:42:37 PM EDT [facility] Name Value Range Interpretation Code Description Data Debra rce(s) Supporting Document(s) GLUCOSE 164 mg/dL (70-99) H [facility] ID Date Data Source [id number] 12/04/2019 04:15:49 PM EDT [facility] Name Value Range Interpretation Code Description Data Debra rce(s) Supporting Document(s) WBC 8.3 10*3/uL (4.1-11.0) [facility] RBC 4.06 10*6/uL (4.60-6.10) L [facility] HGB 13.1 g/dL (13.5-18.0) L [facility] HCT 37.8 % (41.0-53.0) [facility] MCV 93.1 fL (80.0-95.0) [facility] [place] Trevizo MCH 32.2 pg (27.0-32.0) H [facility] [place] Y MCHC 34.6 g/dL (32.0-36.0) [facility] [place] Y RDW 14.6 % (10.5-14.5) H [facility] [place] MELTON Y PLT 125 10*3/uL (150-450) L [facility] [place] Trevizo MPV 8.4 fL (7.1-10.7) [facility] [place] ID Date Data Source [id number] 12/04/2019 05:56:00 PM EDT [facility] DATE OF EXAM: 12/04/2019ULTRASOUND-GUIDE D PARACENTESIS HISTORY:Massive ascites. CONSENT: Informed consent was obtained and the described risks included bleeding, infection, and bowel damage. PROCEDURE: The abdomen was examined indicating a massive amount of fluid. A site in the right lower quadrant was localized using ultrasound. 1% lidocaine was injected for local anesthesia. Under ultrasound guidance a 5 Congolese Yueh catheter was inserted into the peritoneal cavity. 4000 ml of clear yellow fluid was removed, without evidence of complication. Fluid samples sent for diagnostic testing. Patient tolerated procedure well. Large volume of fluid remains. IMPRESSION: Ultrasound-guided paracentesis, as described above. Procedure performed by Rhina Huerta NP. Professional interpretation performed at [facility] .End of diagnostic report for accession: [id number] Interpreted: Mikey Craig MDTranscribed: 12/04/2019 03:31 PMSigned: 12/04/2019 05:56 PM Mkiey Craig MD [facility] ACC # [id number] BILL # [id number] Name Value Range Interpretation Code Description Data Debra rce(s) Supporting Document(s) ID Date Data Source [id number] 12/09/2019 08:21:42 AM EDT [facility] SPECIMEN DESCRIPTION PERITONEAL F LUIDSPECIAL REQUESTS NONECULTURE RESULTS NO ANAEROBES ISOLATED AFTER 5 DAYSREPORT STATUS FINAL 12/09/2019 Name Value Range Interpretation Code Description Data Debra rce(s) Supporting Document(s) ID Date Data Source [id number] 12/09/2019 08:21:22 AM EDT [facility] SPECIMEN DESCRIPTION PERITONEAL F LUIDSPECIAL REQUESTS NONEGRAM STAIN RARE (<1/LPF) WHITE BLOOD CELLS NO BACTERIACULTURE RESULTS NO GROWTH 5 DAYSREPORT STATUS FINAL 12/09/2019 Name Value Range Interpretation Code Description Data Debra rce(s) Supporting Document(s) ID Date Data Source [id number] 12/07/2019 08:01:35 PM EDT [facility] Name Value Range Interpretation Code Description Data Debra rce(s) Supporting Document(s) COLOR [facility] APPEAR [facility] RBC (0) [facility] TOTAL NUCLEATED CNT 160 U/L (0-300) [facility] NEUT % 2 % (0-25) [facility] LYMPH % 79 % [facility] MONO/HISTIO % 11 % [facility] MESOTHELIAL CELLS % 8 % [facility] COMMENT [facility] DIFFERENTIAL PERFORMED ON CYTOCENTRIFUGE D SMEAR PATHOLOGIST COMM [facility] MAINLY LYMPHOCYTES, WITH HISTIOCYTES AND MESOTHELIAL CELLS.REVIEWED BY MD FLAVIA 12/07/19 ID Date Data Source [id number] 12/04/2019 04:10:06 PM EDT [facility] Name Value Range Interpretation Code Description Data Debra rce(s) Supporting Document(s) FLUID ALBUMIN 0.8 g/dL [facility] ID Date Data Source [id number] 12/04/2019 03:32:27 PM EDT [facility] Name Value Range Interpretation Code Description Data Debra rce(s) Supporting Document(s) FLUID LDH 62 U/L [facility] FOR PLEURAL AND PERICARDIAL FLUID:<60% O F SERUM LD REPRESENTS TRANSUDATE>60% OF SERUM LD REPRESENTS EXUDATE ID Date Data Source [id number] 12/04/2019 03:32:27 PM EDT [facility] Name Value Range Interpretation Code Description Data Debra rce(s) Supporting Document(s) FLUID TOTAL PROTEIN <2.0 g/dL [facility] [place] FOR PLEURAL AND PERCARDIAL FLUID: <50% O F SERUM PROTEIN INDICATES TRANSUDATE >50% OF SERUM PROTEIN INDICATES EXUDATE ID Date Data Source [id number] 12/04/2019 03:32:27 PM EDT [facility] [place] [place] Name Value Range Interpretation Code Description Data Debra rce(s) Supporting Document(s) FLUID GLUCOSE 154 mg/dL [facility] [place] ID Date Data Source [id number] 12/04/2019 03:07:44 PM EDT [facility] [place] Name Value Range Interpretation Code Description Data Debra rce(s) Supporting Document(s) FLUID SOURCE [facility] [place] ID Date Data Source [id number] 12/04/2019 11:47:00 AM EDT [facility] DATE OF EXAM: 12/04/2019CT Abdomen [...] and portal hypertension. Professional interpretation performed at [facility] ([place], [place]) .End of diagnostic report for accession: [id number] Interpreted: Gaby Mas MDTranscribed: 12/04/2019 11:39 AMSigned: 12/04/2019 11:47 AM Gaby Mas MD [facility] ACC # [id number] BILL # [id number] Name Value Range Interpretation Code Description Data Debra rce(s) Supporting Document(s) ID Date Data Source [id number] 12/04/2019 10:53:00 AM EDT [facility] DATE OF EXAM: 12/04/2019Chest 1V [...] patchy airspace opacities. Professional interpretation performed at [facility] ([place], [place]) .End of diagnostic report for accession: [id number] Interpreted: Gaby Mas MDTranscribed: 12/04/2019 10:52 AMSigned: 12/04/2019 10:53 AM Gaby Mas MD ------ [facility] ACC # [id number] BILL # [id number] Name Value Range Interpretation Code Description Data Debra rce(s) Supporting Document(s) ID Date Data Source [id number] 12/04/2019 10:32:57 AM EDT [facility] Name Value Range Interpretation Code Description Data Debra rce(s) Supporting Document(s) COLOR [facility] PERFORMED AT [address] [place] [address] APPEARANCE [facility] SPEC GRAV URINE 1.009 (1.003-1.030) [facility] PH URINE 6.0 (5.0-7.5) [facility] LEUK ESTERASE (NEG) [facility] CRITERIA FOR CULTURE NOT MET.CULTURE CAN BE ADDED WITHIN 36 HOURS OFCOLLECTION. NITRITE URINE (NEG) [facility] PROTEIN URINE (NEG) [facility] GLUCOSE URINE (NEG) [facility] KETONE URINE (NEG) [facility] [place] UROBILINOGEN 1.0 mg/dL (0-1.0) [facility] [place] BILIRUBIN URINE (NEG) [facility] BLOOD/HGB URINE (NEG) [facility] ID Date Data Source [id number] 12/04/2019 09:58:43 AM EDT [facility] Name Value Range Interpretation Code Description Data Debra rce(s) Supporting Document(s) MUSE EKG PDF encoded [facility] VGPFWn8cBnNLSwLbb7UfZdEbRNTzDU3kchf2W9S2bMBvY3PocGNyi7cwI4RlF4ViPLZaOVWJND9XlMXq jb2 [file] manager field services+Clh7628H/bRuuMntVwjjziNDahHnpebJPgLA3BM6HHYgqLZjhJiG4fUbgEfvNqRVEi4Ct/oXguhAc KzzzfErfdxM85+S5302sllqpjKpBSz9/guazPplXywI9CJeela4Fh5Ge84mv3qOBgBZzXNYzgycUR1kE K53ZFhldoJdjhU542uY0qnRN9EYYH/8FVN8mn7OSXq OJm/AShRogEjkxF8854B9YzebqfBkcnJwulRnjeCglCWZop6UN84IwNRcoZ2y2Ojri9AwzCT63NyGplA jcA1wSaE9tBXYcBG41UX9j0x+NF8oxPSrH1GqwvAmjqiV0M6m/ZPO88+H2754ronqpdS74UjaHoXslIt aJAC7PG1Y4QoKJSQjAcUppLjVMNWCLTYGCStOSFj/k vvrvsojssxuuolpknrpmmtgsztukhdtueegmtikrbbuXQtNMnOcFAQNNQRjcVSTGvrTnqlargrBU2yid [file] biAKMDAwMDAwMDUyMyAwMDAwMCBuIAowMDAwMDAwNj MdNKJnYBYrNV1vOaIuNBMpBEI6VQFaRVLlYNYusaGZYMHnYTBnVRl6JAWiSBZbYDWcTNqrFKYwTRThJF U4RMTdTEIsIZ5yGbYpTNOzXLEaIYZxZPRhEEHgrvOTGBNcWGGaSZC0KOCiATCgILZwDOpfXKVeUSCqVj d7FJVjUGCsZZ1yKrKlOYBaPLH0ZUOjEKVbWSVddrRQ XAWiWOI2IOZ7NUJpHHDkZXFvTBlpQHZkCHZvFzE4BLQkVDJhZA9kYiSeIDQyMTZ3AvTwYBDwACKcepFD YUCjHRZcHJR1CmVqOLScVZOfPHzjWLIpPFMsUZWoTZL0INA7AGWdKnTxDRmtJMJWQLiMI9PuxuXcRqKB A6xnNx1cTvMyYYQBZ2Tja2ZyCXOgAOOJTo6+CvH6PXX1vRQsMei2PQA5YVtkEFGAXx== ID Date Data Source [id number] 12/04/2019 10:41:15 AM EDT [facility] Name Value Range Interpretation Code Description Data Debra rce(s) Supporting Document(s) TOTAL PROTEIN 7.4 g/dL (6.4-8.2) [facility] ALBUMIN 2.8 g/dL (3.2-4.5) L [facility] GLOBULIN 4.6 g/dL (2.7-4.3) H [facility] ALB/GLOB RATIO 0.6 RATIO [facility] BILIRUBIN,TOTAL 2.5 mg/dL (0.0-1.0) H [facility] PLEASE NOTE:Total bilirubin results may be falselyelevated in patients taking Eltrombopag. BILIRUBIN,CONJUGATED 1.0 mg/dL (0.0-0.3) H [facility] BILIRUBIN,UNCONJ. 1.5 mg/dL (0.0-0.7) H [facility] ALKALINE PHOSPHATASE 103 U/L (45-117) [facility] AST (SGOT) 45 U/L (11-39) H [facility] ALT (SGPT) 23 U/L (12-78) [facility] ID Date Data Source [id number] 12/04/2019 10:41:15 AM EDT [facility] Name Value Range Interpretation Code Description Data Debra rce(s) Supporting Document(s) LIPASE 91 U/L (65-230) [facility] ID Date Data Source [id number] 12/04/2019 10:41:15 AM EDT [facility] Name Value Range Interpretation Code Description Data Debra rce(s) Supporting Document(s) TROPONIN I <0.05 ng/mL (<0.05) [facility] [place] Less than 0.05: Myocardial injury unlike lyGreater than or equal to 0.05: Highly suggestive of myocardial injuryCorrelation with rise and/or fall ofserial troponins, clinical symptomsand ECG changes is necessary. ID Date Data Source [id number] 12/04/2019 10:41:15 AM EDT [facility] Name Value Range Interpretation Code Description Data Debra rce(s) Supporting Document(s) SODIUM 137 mmol/L (136-145) [facility] POTASSIUM 3.0 mmol/L (3.6-5.2) L [facility] CHLORIDE 98 mmol/L (100-108) L [facility] CO2 32 mmol/L (22-31) H [facility] ANION GAP 7 mmol/L (7-16) [facility] UREA NITROGEN 9 mg/dL (7-24) [facility] CREATININE 0.77 mg/dL (0.80-1.30) L [facility] BUN/CREAT RATIO 11.7 RATIO (10.0-20.0) [facility] GLUCOSE 142 mg/dL (70-99) H [facility] CALCIUM 8.9 mg/dL (8.4-10.2) [facility] GFR >60 ml/min/1.73m2 (>59) [facility] GFR ( AMER) >60 ml/min/1.73m2 (>59) [facility] [place] GFR INTERPRETATION [facility] [place] --NORMAL KIDNEY FUNCTION OR MILD DISEASE - GFR >OR= 60CHRONIC KIDNEY DISEASE - GFR 15 - 59RENAL FAILURE - GFR <15 Est. GFR calculation based on the MDRDstudy equation, which assumes a steadystate for creatinine. Est. GFR should notbe used for medication dosing. ID Date Data Source [id number] 12/04/2019 10:41:15 AM EDT [facility] [place] Name Value Range Interpretation Code Description Data Debra rce(s) Supporting Document(s) NT PRO BNP 296 pg/mL (0-125) H [facility] [place] ID Date Data Source [id number] 12/04/2019 10:34:37 AM EDT [facility] [place] Name Value Range Interpretation Code Description Data Debra rce(s) Supporting Document(s) APTT 28.5 s (22.0-34.3) [facility] [place] Y PERFORMED AT [address] [facility] [address] ID Date Data Source [id number] 12/04/2019 10:34:37 AM EDT [facility] [place] Name Value Range Interpretation Code Description Data Debra rce(s) Supporting Document(s) PT 13.7 s (9.2-11.9) H [facility] [place] PERFORMED AT [address] [facility] [address] INR 1.33 [facility] [place] SUGGESTED THERAPEUTIC RANGES USING INR F ORSTABILIZED ANTICOAGULATED PATIENTS:STANDARD DOSE THERAPY INR 2.0-3.0 DVT, PE, PREVENT DVT OR EMBOLISMHIGH DOSE THERAPY INR 2.5-3.5 PREVENT EMBOLISM FROM MECHANICAL HEART VALVE ID Date Data Source [id number] 12/04/2019 10:28:33 AM EDT [facility] [place] Name Value Range Interpretation Code Description Data Debra rce(s) Supporting Document(s) AMMONIA 18 umol/L (11-32) [facility] [place] ID Date Data Source [id number] 12/04/2019 10:21:36 AM EDT [facility] Name Value Range Interpretation Code Description Data Debra rce(s) Supporting Document(s) WBC 11.0 10*3/uL (4.1-11.0) [facility] RBC 4.50 10*6/uL (4.60-6.10) L [facility] HGB 14.5 g/dL (13.5-18.0) [facility] HCT 42.4 % (41.0-53.0) [facility] MCV 94.3 fL (80.0-95.0) [facility] MCH 32.3 pg (27.0-32.0) H [facility] MCHC 34.2 g/dL (32.0-36.0) [facility] RDW 14.5 % (10.5-14.5) [facility] PLT 191 10*3/uL (150-450) [facility] MPV 8.8 fL (7.1-10.7) [facility] NEUT % 76.2 % (35.0-75.0) H [facility] LYMPH % 14.4 % (16.0-52.0) L [facility] MONO % 8.3 % (0.0-8.0) H [facility] EOS % 0.4 % (0.0-5.0) [facility] BASO % 0.7 % (0.0-4.0) [facility] NEUT # 8.4 10*3/uL (1.8-7.7) H [facility] LYMPH # 1.6 10*3/uL (1.2-4.8) [facility] MONO # 0.9 10*3/uL (0.0-0.8) H [facility] Eosinophils [#/volume] in Blood by Automated count 0.0 10*3/uL (0.0-0 .5) [facility] BASO # 0.1 10*3/uL (0.0-0.2) [facility] ID Date Data Source [id number] 12/04/2019 10:17:54 AM EDT [facility] Name Value Range Interpretation Code Description Data Debra rce(s) Supporting Document(s) HOLD TUBE PINK Lab [facility] [place] ID Date Data Source [id number] 12/07/2019 06:03:20 PM EDT [facility] LABORATORY [facility] [address] [place], [place] [address]Lbh# MISCELLANEOUS CYTOLOGY REPORTAccession #: [id number] [id number] Specimen(s): A: Peritoneal FluidClinical Diagnosis and History: Gross DescriptionPeritoneal Fluid: Received in 2 tubes TV 60 cc hazy yellow fluid. Final DiagnosisSpecimen AdequacySatisfactoryFinal DiagnosisNEGATIVE FOR MALIGNANCY Mesothelial cells and histiocytes..Processed and screened at Laboratory [facility],Cytology, [address] [place] [address], [facility].As applicable, positive and negative controls for all immunohistochemicaland/or special stains were reviewed and considered appropriate. Reported: 12/07/2019 18:02Electronically Signed Out By Lelo Jackson M.D.Pathology AssociatesCytotechnologist: Anahi DECKER([facility] [place] [place] ICD Code: R18.8 CPT Code: A: [id number] Name Value Range Interpretation Code Description Data Debra rce(s) Supporting Document(s) ID Date Data Source [id number] 12/02/2019 12:00:00 AM EDT [facility] Katja Mccall Np Patient Name: MIKEY TAPIA [address] [facility] [address] Date of Exam: 12/02/2019PH#: Fax: [phone] EXAM: [...] small and with a nodular surface. The uscnnps-iv-dklg lobe ofthe liver ratio is abnormal. There [...] Other findings as described above.Accredited by the [employer] [employer] in [place].HOA Vizcaino/Vik ibarra for referring MIKEY TAPIA to our office. Electronically Signed - SINAI LOWERY DO 12/02/19 16:35 Name Value Range Interpretation Code Description Data Debra rce(s) Supporting Document(s) ID Date Data Source [id number] 12/01/2019 11:50:00 AM EDT [facility] ([facility]) Name Value Range Interpretation Code Description Data Debra rce(s) Supporting Document(s) Hemoglobin A1c/Hemoglobin.total in Blood 7.6 Abnormal (applies to non-numeric results) Hgb A1c [facility] ([facility]) ID Date Data Source [id number] 12/01/2019 11:21:00 AM EDT [facility] ([facility] Name Value Range Interpretation Code Description Data Debra rce(s) Supporting Document(s) Hemoglobin A1c/Hemoglobin.total in Blood 7.6 [facility] ([facility]) ID Date Data Source [id number] 10/08/2019 12:00:00 AM EDT [facility] ([facility]) Name Value Range Interpretation Code Description Data Debra rce(s) Supporting Document(s) Hemoglobin A1c/Hemoglobin.total in Blood 11.4 Abnormal (applies to non-numeric results) Hgb A1c [facility] ([facility]) ID Date Data Source [id number] 10/07/2019 05:09:00 PM EDT ETHAN ([facility]) Name Value Range Interpretation Code Description Data Debra rce(s) Supporting Document(s) Amphetamines: negative Amphetamines: [facility] ([facility]) THC negative Thc [facility] ([facility]) Barbiturates: negative Barbiturates: [facility] ([facility]) Cocaine: negative Cocaine: [facility] ([facility]) Opiates: negative Opiates: [facility] ([facility]) PCP negative Pcp [facility] ([facility]) Benzodiazepines: negative Benzodiazepines: AT JARRET ([facility]) MTD negative Mtd [facility] ([facility]) Methamphetamine negative Methamphetamine ATHE NA ([facility]) OXY positive Oxy [facility] ([facility]) ID Date Data Source [id number] 10/07/2019 05:09:00 PM EDT [facility] ([facility]) Name Value Range Interpretation Code Description Data Debra rce(s) Supporting Document(s) Amphetamines: negative Amphetamines: [facility] ([facility]) Cocaine: negative Cocaine: [facility] ([facility] THC negative Thc [facility] ([facility]) Opiates: negative Opiates: [facility] ([facility]) Barbiturates: negative Barbiturates: ETHAN ([facility]) Benzodiazepines: negative Benzodiazepines: AT JARRET ([facility]) PCP negative Pcp [facility] ([facility] Methamphetamine negative Methamphetamine ATHE NA ([facility]) MTD negative Mtd [facility] ([facility] OXY positive Oxy [facility] ([facility]) ID Date Data Source [id number] 10/07/2019 05:09:00 PM EDT [facility] ([facility]) Name Value Range Interpretation Code Description Data Debra rce(s) Supporting Document(s) Cocaine: negative Cocaine: [facility] ([facility] Amphetamines: negative Amphetamines: [facility] ([facility]) THC negative Thc [facility] ([facility]) Barbiturates: negative Barbiturates: ETHAN ([facility]) Opiates: negative Opiates: [facility] ([facility]) Benzodiazepines: negative Benzodiazepines: AT JARRET ([facility]) PCP negative Pcp [facility] ([facility] OXY positive Oxy [facility] ([facility] MTD negative Mtd [facility] ([facility]) Methamphetamine negative Methamphetamine ATHE NA ([facility]) ID Date Data Source [id number] 10/07/2019 05:09:00 PM EDT [facility] ([facility]) Name Value Range Interpretation Code Description Data Debra rce(s) Supporting Document(s) Amphetamines: negative Amphetamines: [facility] ([facility]) Opiates: negative Opiates: [facility] ([facility] Cocaine: negative Cocaine: [facility] ([facility] THC negative Thc [facility] ([facility]) Barbiturates: negative Barbiturates: ETHAN ([facility]) Benzodiazepines: negative Benzodiazepines: AT JARRET ([facility]) Methamphetamine negative Methamphetamine ATHE NA ([facility]) PCP negative Pcp [facility] ([facility]) OXY positive Oxy [facility] ([facility]) MTD negative Mtd [facility] ([facility]) ID Date Data Source [id number] 10/07/2019 05:09:00 PM EDT [facility] ([facility]) Name Value Range Interpretation Code Description Data Debra rce(s) Supporting Document(s) Amphetamines: negative Amphetamines: [facility] ([facility]) THC negative Thc [facility] ([facility]) Opiates: negative Opiates: [facility] ([facility]) Barbiturates: negative Barbiturates: ETHAN ([facility]) Cocaine: negative Cocaine: [facility] ([facility]) Benzodiazepines: negative Benzodiazepines: AT J[facility] ([facility]) PCP negative Pcp [facility] ([facility] OXY positive Oxy [facility] ([facility]) MTD negative Mtd [facility] ([facility]) Methamphetamine negative Methamphetamine ATHE NA ([facility]) ID Date Data Source [id number] 10/07/2019 05:09:00 PM EDT [facility] ([facility]) Name Value Range Interpretation Code Description Data Debra rce(s) Supporting Document(s) Opiates: negative Opiates: [facility] ([facility]) Amphetamines: negative Amphetamines: [facility] ([facility]) THC negative Thc [facility] ([facility]) Cocaine: negative Cocaine: [facility] ([facility]) Barbiturates: negative Barbiturates: ETH[facility] ([facility]) PCP negative Pcp [facility] ([facility]) Benzodiazepines: negative Benzodiazepines: AT JAR[facility] ([facility]) Methamphetamine negative Methamphetamine ATHE NA ([facility]) OXY positive Oxy [facility] ([facility]) MTD negative Mtd [facility] ([facility]) ID Date Data Source [id number] 10/07/2019 05:09:00 PM EDT [facility] ([facility]) Name Value Range Interpretation Code Description Data Debra rce(s) Supporting Document(s) Amphetamines: negative Amphetamines: [facility] ([facility]) Opiates: negative Opiates: [facility] ([facility]) THC negative Thc [facility] ([facility]) Cocaine: negative Cocaine: [facility] ([facility]) Barbiturates: negative Barbiturates: ETHAN ([facility]) Methamphetamine negative Methamphetamine ATHE NA ([facility]) Benzodiazepines: negative Benzodiazepines: AT JARRET ([facility]) MTD negative Mtd [facility] ([facility]) PCP negative Pcp [facility] ([facility] OXY positive Oxy [facility] ([facility]) ID Date Data Source [id number] 10/07/2019 05:09:00 PM EDT [facility] ([facility]) Name Value Range Interpretation Code Description Data Debra rce(s) Supporting Document(s) Amphetamines: negative Amphetamines: ETHAN ([facility]) Cocaine: negative Cocaine: [facility] ([facility]) Benzodiazepines: negative Benzodiazepines: AT JARRET ([facility]) THC negative Thc [facility] ([facility]) Opiates: negative Opiates: [facility] ([facility]) Barbiturates: negative Barbiturates: ETHAN ([facility]) OXY positive Oxy [facility] ([facility]) Methamphetamine negative Methamphetamine ATHE NA ([facility]) MTD negative Mtd [facility] ([facility]) PCP negative Pcp [facility] ([facility]) ID Date Data Source [id number] 10/07/2019 05:09:00 PM EDT [facility] ([facility]) Name Value Range Interpretation Code Description Data Debra rce(s) Supporting Document(s) THC negative Thc ETHAN ([facility]) Amphetamines: negative Amphetamines: ETHAN ([facility]) Cocaine: negative Cocaine: ETHAN ([facility]) Benzodiazepines: negative Benzodiazepines: AT JARRET ([facility]) Opiates: negative Opiates: ETHAN ([facility]) Barbiturates: negative Barbiturates: ETHAN ([facility]) PCP negative Pcp ETHAN ([facility]) Methamphetamine negative Methamphetamine ATHE NA ([facility]) MTD negative Mtd ETHNA ([facility]) OXY positive Oxy ETHAN ([facility]) ID Date Data Source [id number] 10/07/2019 05:09:00 PM EDT ETHAN ([facility]) Name Value Range Interpretation Code Description Data Debra rce(s) Supporting Document(s) Cocaine: negative Cocaine: ETHAN ([facility]) Amphetamines: negative Amphetamines: ETHAN ([facility]) THC negative Thc ETHAN ([facility]) Barbiturates: negative Barbiturates: ETHAN ([facility]) Opiates: negative Opiates: ETHAN ([facility]) PCP negative Pcp ETHAN ([facility]) Benzodiazepines: negative Benzodiazepines: AT JARRET ([facility]) MTD negative Mtd ETHAN ([facility]) Methamphetamine negative Methamphetamine ATHE NA ([facility]) OXY positive Oxy ETHAN ([facility]) ID Date Data Source [id number] 10/07/2019 12:00:00 AM EDT KELLOGG ([facility]) Name Value Range Interpretation Code Description Data Debra rce(s) Supporting Document(s) Buprenorphine [Presence] in Urine by Confirmatory method <1 >=1 Buprenorphine Ur Ql [facility] ([facility]) Ethyl sulfate [Mass/volume] in Urine by Confirmatory method <200 >=200 Ethyl Sulfate Ur [facility] ([facility]) Ethyl glucuronide [Mass/volume] in Urine by Confirmatory method <50 0 >=500 Ethyl Glucuronide Ur [facility] ([facility]) alcohol metabolites ur ql cfm <200 >=200 Alcoho l Metabolites Ur Ql [facility] ([facility]) Tapentadol [Presence] in Urine by Confirmatory method <100 >=100 Tapentadol Ur Ql [facility] ([facility]) Benzodiazepines [Presence] in Urine by Confirmatory method <50 >=50 Benzodiaz Ur Ql [facility] ([facility]) Cocaine [Presence] in Urine by Confirmatory method <50 >=50 Bze Ur Ql [facility] ([facility]) Amphetamines [Presence] in Urine by Confirmatory method <0 >=0 Amphetamines Ur Ql [facility] ([facility]) gabapentinpregabalin ur ql cfm <5 >=5 Gabap entinpregabalin Ur Ql [facility] ([facility]) Opiates [Presence] in Urine by Confirmatory method >=100 >=1 00 Opiates Ur Ql [facility] ([facility]) Oxycodone [Mass/volume] in Urine by Confirmatory method 568 NG/mL >=100 Oxycodone Ur [facility] ([facility]) Oxymorphone [Mass/volume] in Urine by Confirmatory method 129 NG/mL >=100 Oxymorphone Ur [facility] ([facility]) Noroxycodone [Mass/volume] in Urine by Confirmatory method 401 NG/m L >=100 Noroxycodone Ur [facility] ([facility]) Methadone [Presence] in Urine by Confirmatory method <200 > =200 Methadone Ur Ql [facility] ([facility]) Fentanyl+Norfentanyl [Presence] in Urine by Confirmatory method <5 >=5 Fentanyl+norfentanyl Ur Ql [facility] ([facility]) Meperidine [Presence] in Urine by Confirmatory method <100 >=100 Meperidine Ur Ql [facility] ([facility]) 6-Monoacetylmorphine (6-ERIKA) [Presence] in Urine by Confirma tory method <10 >=10 6Mam Ur Ql [facility] ([facility]) pH of Urine 4.5 - 9.0 normal pH Ur [place] ([facility]) Carisoprodol+Meprobamate [Presence] in Urine by Screen method <200 >=200 Carisoprodol+meprob Ur Ql Scn [place] ([facility]) Cotinine [Presence] in Urine by Confirmatory method <125 >= 125 Cotinine Ur Ql [facility] ([facility]) Tramadol [Presence] in Urine by Confirmatory method <100 >= 100 Tramadol Ur Ql [facility] ([facility]) Creatinine [Mass/volume] in Urine 34.7 mg/dL 20 - 370 normal [facility]) ID Date Data Source [id number] 10/07/2019 12:00:00 AM EDT [place] ([facility]) Name Value Range Interpretation Code Description Data Debra rce(s) Supporting Document(s) ID Date Data Source [id number] 10/07/2019 12:00:00 AM EDT ETHAN ([facility]) Name Value Range Interpretation Code Description Data Debra rce(s) Supporting Document(s) ID Date Data Source [id number] 10/07/2019 12:00:00 AM EDT ETHAN ([facility]) Name Value Range Interpretation Code Description Data Debra rce(s) Supporting Document(s) oxycodone ur CMP 1090 NG/mL >=100 Abnormal (applies to non -numeric results) Oxycodone Ur CMP ETHAN ([facility]) ID Date Data Source [id number] 10/07/2019 12:00:00 AM EDT ETHAN ([facility]) Name Value Range Interpretation Code Description Data Debra rce(s) Supporting Document(s) Buprenorphine [Presence] in Urine by Confirmatory method <1 >=1 Buprenorphine Ur Ql [facility] ([facility]) Ethyl sulfate [Mass/volume] in Urine by Confirmatory method <200 >=200 Ethyl Sulfate Ur [facility] ([facility]) alcohol metabolites ur ql cfm <200 >=200 Alcoho l Metabolites Ur Ql [facility] ([facility]) Ethyl glucuronide [Mass/volume] in Urine by Confirmatory method <50 0 >=500 Ethyl Glucuronide Ur [facility] ([facility]) Benzodiazepines [Presence] in Urine by Confirmatory method <50 >=50 Benzodiaz Ur Ql [facility] ([facility]) Tapentadol [Presence] in Urine by Confirmatory method <100 >=100 Tapentadol Ur Ql [facility] ([facility]) Amphetamines [Presence] in Urine by Confirmatory method <0 >=0 Amphetamines Ur Ql [facility] ([facility]) gabapentinpregabalin ur ql cfm <5 >=5 Gabap entinpregabalin Ur Ql [facility] ([facility]) Cocaine [Presence] in Urine by Confirmatory method <50 >=50 Bze Ur Ql [facility] ([facility]) Oxycodone [Mass/volume] in Urine by Confirmatory method 568 NG/mL >=100 Oxycodone Ur [facility] ([facility]) Oxymorphone [Mass/volume] in Urine by Confirmatory method 129 NG/mL >=100 Oxymorphone Ur [facility] ([facility]) Opiates [Presence] in Urine by Confirmatory method >=100 >=1 00 Opiates Ur Ql [facility] ([facility]) Methadone [Presence] in Urine by Confirmatory method <200 > =200 Methadone Ur Ql [facility] ([facility]) Noroxycodone [Mass/volume] in Urine by Confirmatory method 401 NG/m L >=100 Noroxycodone Ur [facility] ([facility]) 6-Monoacetylmorphine (6-ERIKA) [Presence] in Urine by Confirma tory method <10 >=10 6Mam Ur Ql [facility] ([facility]) Meperidine [Presence] in Urine by Confirmatory method <100 >=100 Meperidine Ur Ql [facility] ([facility]) Fentanyl+Norfentanyl [Presence] in Urine by Confirmatory method <5 >=5 Fentanyl+norfentanyl Ur Ql [facility] ([facility]) Tramadol [Presence] in Urine by Confirmatory method <100 >= 100 Tramadol Ur Ql [facility] ([facility]) Carisoprodol+Meprobamate [Presence] in Urine by Screen method <200 >=200 Carisoprodol+meprob Ur Ql Scn [place] ([facility]) Cotinine [Presence] in Urine by Confirmatory method <125 >= 125 Cotinine Ur Ql [facility] ([facility]) pH of Urine 4.5 - 9.0 normal pH Ur [place] ([facility]) Creatinine [Mass/volume] in Urine 34.7 mg/dL 20 - 370 normal Cr eat [facility] ([facility]) ID Date Data Source [id number] 10/07/2019 12:00:00 AM EDT ETHAN ([facility]) Name Value Range Interpretation Code Description Data Debra rce(s) Supporting Document(s) ID Date Data Source [id number] 10/07/2019 12:00:00 AM EDT ETHAN ([facility]) Name Value Range Interpretation Code Description Data Debra rce(s) Supporting Document(s) ID Date Data Source [id number] 10/07/2019 12:00:00 AM EDT ETHAN ([facility]) Name Value Range Interpretation Code Description Data Debra rce(s) Supporting Document(s) oxycodone ur CMP 1090 NG/mL >=100 Abnormal (applies to non -numeric results) Oxycodone Ur CMP ETHAN ([facility]) ID Date Data Source [id number] 10/07/2019 12:00:00 AM EDT ETHAN ([facility]) Name Value Range Interpretation Code Description Data Debra rce(s) Supporting Document(s) alcohol metabolites ur ql [facility] <200 >=200 Alcoho l Metabolites Ur Ql [facility] ([facility]) Buprenorphine [Presence] in Urine by Confirmatory method <1 >=1 Buprenorphine Ur Ql [facility] ([facility]) Ethyl glucuronide [Mass/volume] in Urine by Confirmatory method <50 0 >=500 Ethyl Glucuronide Ur [facility] ([facility]) Benzodiazepines [Presence] in Urine by Confirmatory method <50 >=50 Benzodiaz Ur [facility] ([facility]) Amphetamines [Presence] in Urine by Confirmatory method <0 >=0 Amphetamines Ur [facility] ([facility]) Tapentadol [Presence] in Urine by Confirmatory method <100 >=100 Tapentadol Ur Ql [facility] ([facility]) Ethyl sulfate [Mass/volume] in Urine by Confirmatory method <200 >=200 Ethyl Sulfate Ur [facility] ([facility]) Cocaine [Presence] in Urine by Confirmatory method <50 >=50 Bze Ur Ql [facility] ([facility]) Oxycodone [Mass/volume] in Urine by Confirmatory method 568 NG/mL >=100 Oxycodone Ur [facility] ([facility]) Oxymorphone [Mass/volume] in Urine by Confirmatory method 129 NG/mL >=100 Oxymorphone Ur [facility] ([facility]) Opiates [Presence] in Urine by Confirmatory method >=100 >=1 00 Opiates Ur Ql [facility] ([facility]) gabapentinpregabalin ur ql cf <5 >=5 Gabap entinpregabalin Ur Ql [facility] ([facility]) Meperidine [Presence] in Urine by Confirmatory method <100 >=100 Meperidine Ur Ql [facility] ([facility]) Methadone [Presence] in Urine by Confirmatory method <200 > =200 Methadone Ur Ql [facility] ([facility]) Noroxycodone [Mass/volume] in Urine by Confirmatory method 401 NG/m L >=100 Noroxycodone Ur [facility] ([facility]) 6-Monoacetylmorphine (6-ERIKA) [Presence] in Urine by Confirma tory method <10 >=10 6Mam Ur Ql [facility] ([facility]) Tramadol [Presence] in Urine by Confirmatory method <100 >= 100 Tramadol Ur Ql [facility] ([facility]) Cotinine [Presence] in Urine by Confirmatory method <125 >= 125 Cotinine Ur Ql [facility] ([facility]) Carisoprodol+Meprobamate [Presence] in Urine by Screen method <200 >=200 Carisoprodol+meprob Ur Ql [facility] ([facility]) Fentanyl+Norfentanyl [Presence] in Urine by Confirmatory method <5 >=5 Fentanyl+norfentanyl Ur Ql [facility] ([facility]) pH of Urine 4.5 - 9.0 normal pH Ur [place] ([facility]) Creatinine [Mass/volume] in Urine 34.7 mg/dL 20 - 370 normal Cr eat [facility] ([facility]) ID Date Data Source [id number] 10/07/2019 12:00:00 AM EDT [place] ([facility]) Name Value Range Interpretation Code Description Data Debra rce(s) Supporting Document(s) ID Date Data Source [id number] 10/07/2019 12:00:00 AM EDT ETHAN ([facility]) Name Value Range Interpretation Code Description Data Debra rce(s) Supporting Document(s) ID Date Data Source [id number] 10/07/2019 12:00:00 AM EDT ETHAN ([facility]) Name Value Range Interpretation Code Description Data Debra rce(s) Supporting Document(s) oxycodone ur CMP 1090 NG/mL >=100 Abnormal (applies to non -numeric results) Oxycodone Ur CMP ETHAN ([facility]) ID Date Data Source [id number] 10/07/2019 12:00:00 AM EDT ETHAN ([facility]) Name Value Range Interpretation Code Description Data Debra rce(s) Supporting Document(s) Buprenorphine [Presence] in Urine by Confirmatory method <1 >=1 Buprenorphine Ur Ql [facility] ([facility]) Ethyl sulfate [Mass/volume] in Urine by Confirmatory method <200 >=200 Ethyl Sulfate Ur [facility] ([facility]) Ethyl glucuronide [Mass/volume] in Urine by Confirmatory method <50 0 >=500 Ethyl Glucuronide Ur [facility] ([facility]) alcohol metabolites ur ql cfm <200 >=200 Alcoho l Metabolites Ur Ql [facility] ([facility]) Amphetamines [Presence] in Urine by Confirmatory method <0 >=0 Amphetamines Ur Ql [facility] ([facility]) Tapentadol [Presence] in Urine by Confirmatory method <100 >=100 Tapentadol Ur Ql [facility] ([facility]) Cocaine [Presence] in Urine by Confirmatory method <50 >=50 Bze Ur Ql [facility] ([facility]) gabapentinpregabalin ur ql cfm <5 >=5 Gabap entinpregabalin Ur Ql [facility] ([facility]) Benzodiazepines [Presence] in Urine by Confirmatory method <50 >=50 Benzodiaz Ur Ql [facility] ([facility]) Opiates [Presence] in Urine by Confirmatory method >=100 >=1 00 Opiates Ur Ql [facility] ([facility]) 6-Monoacetylmorphine (6-ERIKA) [Presence] in Urine by Confirma tory method <10 >=10 6Mam Ur Ql [facility] ([facility]) Oxymorphone [Mass/volume] in Urine by Confirmatory method 129 NG/mL >=100 Oxymorphone Ur [facility] ([facility]) Oxycodone [Mass/volume] in Urine by Confirmatory method 568 NG/mL >=100 Oxycodone Ur [facility] ([facility]) Noroxycodone [Mass/volume] in Urine by Confirmatory method 401 NG/m L >=100 Noroxycodone Ur [facility] ([facility]) Methadone [Presence] in Urine by Confirmatory method <200 > =200 Methadone Ur Ql [facility] ([facility]) Fentanyl+Norfentanyl [Presence] in Urine by Confirmatory method <5 >=5 Fentanyl+norfentanyl Ur Ql [facility] ([facility]) Meperidine [Presence] in Urine by Confirmatory method <100 >=100 Meperidine Ur Ql [facility] ([facility]) Carisoprodol+Meprobamate [Presence] in Urine by Screen method <200 >=200 Carisoprodol+meprob Ur Ql [facility] ([facility]) Tramadol [Presence] in Urine by Confirmatory method <100 >= 100 Tramadol Ur Ql [facility] ([facility]) pH of Urine 4.5 - 9.0 normal pH Ur [place] ([facility]) Cotinine [Presence] in Urine by Confirmatory method <125 >= 125 Cotinine Ur Ql [facility] ([facility]) Creatinine [Mass/volume] in Urine 34.7 mg/dL 20 - 370 [facility]) ID Date Data Source [id number] 10/07/2019 12:00:00 AM EDT [place] ([facility]) Name Value Range Interpretation Code Description Data Debra rce(s) Supporting Document(s) ID Date Data Source [id number] 10/07/2019 12:00:00 AM EDT ETHAN ([facility]) Name Value Range Interpretation Code Description Data Debra rce(s) Supporting Document(s) ID Date Data Source [id number] 10/07/2019 12:00:00 AM EDT ETHAN ([facility]) Name Value Range Interpretation Code Description Data Debra rce(s) Supporting Document(s) oxycodone ur CMP 1090 NG/mL >=100 Abnormal (applies to non -numeric results) Oxycodone Ur CMP ETHAN ([facility]) ID Date Data Source [id number] 10/07/2019 12:00:00 AM EDT ETHAN ([facility]) Name Value Range Interpretation Code Description Data Debra rce(s) Supporting Document(s) Ethyl glucuronide [Mass/volume] in Urine by Confirmatory method <50 0 >=500 Ethyl Glucuronide Ur [facility] ([facility]) alcohol metabolites ur ql cfm <200 >=200 Alcoho l Metabolites Ur Ql [facility] ([facility]) Buprenorphine [Presence] in Urine by Confirmatory method <1 >=1 Buprenorphine Ur Ql [facility] ([facility]) Benzodiazepines [Presence] in Urine by Confirmatory method <50 >=50 Benzodiaz Ur Ql [facility] ([facility]) Amphetamines [Presence] in Urine by Confirmatory method <0 >=0 Amphetamines Ur Ql [facility] ([facility]) Tapentadol [Presence] in Urine by Confirmatory method <100 >=100 Tapentadol Ur Ql [facility] ([facility]) Ethyl sulfate [Mass/volume] in Urine by Confirmatory method <200 >=200 Ethyl Sulfate Ur [facility] ([facility]) gabapentinpregabalin ur ql cfm <5 >=5 [facility]ap [facility]regabalin [facility]) Oxymorphone [Mass/volume] in Urine by Confirmatory method 129 NG/mL >=100 Oxymorphone Ur [facility] ([facility]) Opiates [Presence] in Urine by Confirmatory method >=100 >=1 00 Opiates Ur Ql [facility] ([facility]) Oxycodone [Mass/volume] in Urine by Confirmatory method 568 NG/mL >=100 Oxycodone Ur [facility] ([facility]) Cocaine [Presence] in Urine by Confirmatory method <50 >=50 Bze Ur Ql [facility] ([facility]) 6-Monoacetylmorphine (6-ERIKA) [Presence] in Urine by Confirma tory method <10 >=10 6Mam Ur Ql [facility] ([facility]) Noroxycodone [Mass/volume] in Urine by Confirmatory method 401 NG/m L >=100 Noroxycodone Ur [facility] ([facility]) Meperidine [Presence] in Urine by Confirmatory method <100 >=100 Meperidine Ur Ql [facility] ([facility]) Methadone [Presence] in Urine by Confirmatory method <200 > =200 Methadone Ur Ql [facility] ([facility]) Fentanyl+Norfentanyl [Presence] in Urine by Confirmatory method <5 >=5 Fentanyl+norfentanyl Ur Ql [facility] ([facility]) Creatinine [Mass/volume] in Urine 34.7 mg/dL 20 - 370 [facility]) Tramadol [Presence] in Urine by Confirmatory method <100 >= 100 Tramadol Ur Ql [facility] ([facility]) Cotinine [Presence] in Urine by Confirmatory method <125 >= 125 Cotinine Ur Ql [facility] ([facility]) pH of Urine 4.5 - 9.0 normal pH Ur [place] ([facility]) Carisoprodol+Meprobamate [Presence] in Urine by Screen method <200 >=200 Carisoprodol+meprob Ur Ql [facility] ([facility]) ID Date Data Source [id number] 10/07/2019 12:00:00 AM EDT ETHAN ([facility]) Name Value Range Interpretation Code Description Data Debra rce(s) Supporting Document(s) ID Date Data Source [id number] 10/07/2019 12:00:00 AM EDT [facility] ([facility]) Name Value Range Interpretation Code Description Data Debra rce(s) Supporting Document(s) ID Date Data Source [id number] 10/07/2019 12:00:00 AM EDT [facility] ([facility]) Name Value Range Interpretation Code Description Data Debra rce(s) Supporting Document(s) oxycodone ur CMP 1090 NG/mL >=100 Abnormal (applies to non -numeric results) Oxycodone Ur CMP [facility] ([facility]) ID Date Data Source [id number] 10/07/2019 12:00:00 AM EDT [facility] ([facility]) Name Value Range Interpretation Code Description Data Debra rce(s) Supporting Document(s) alcohol metabolites ur ql cfm <200 >=200 [facility] Buprenorphine [Presence] in Urine by Confirmatory method <1 >=1 Buprenorphine Ur Ql [facility] ([facility]) Amphetamines [Presence] in Urine by Confirmatory method <0 >=0 Amphetamines Ur Ql Cfm [facility] ([facility]) Tapentadol [Presence] in Urine by Confirmatory method <100 >=100 Tapentadol Ur Ql Cf [facility] ([facility]) Ethyl glucuronide [Mass/volume] in Urine by Confirmatory method <50 0 >=500 Ethyl Glucuronide Ur Cfm-nc [facility] ([facility]) Ethyl sulfate [Mass/volume] in Urine by Confirmatory method <200 >=200 [facility] Benzodiazepines [Presence] in Urine by Confirmatory method <50 >=50 Benzodiaz Ur Ql Cf [facility] ([facility]) gabapentinpregabalin ur ql cf <5 >=5 Gabap entinpregabalin Ur Ql [facility] ([facility]) Opiates [Presence] in Urine by Confirmatory method >=100 >=1 00 Opiates Ur Ql [facility] ([facility]) Cocaine [Presence] in Urine by Confirmatory method <50 >=50 Bze Ur Ql [facility] ([facility]) Oxycodone [Mass/volume] in Urine by Confirmatory method 568 NG/mL >=100 Oxycodone Ur [facility] ([facility]) Noroxycodone [Mass/volume] in Urine by Confirmatory method 401 NG/m L >=100 Noroxycodone Ur [facility] ([facility]) Oxymorphone [Mass/volume] in Urine by Confirmatory method 129 NG/mL >=100 Oxymorphone Ur [facility] ([facility]) 6-Monoacetylmorphine (6-ERIKA) [Presence] in Urine by Confirma tory method <10 >=10 6Mam Ur Ql [facility] ([facility]) Meperidine [Presence] in Urine by Confirmatory method <100 >=100 Meperidine Ur Ql [facility] ([facility]) Methadone [Presence] in Urine by Confirmatory method <200 > =200 Methadone Ur Ql [facility] ([facility]) Cotinine [Presence] in Urine by Confirmatory method <125 >= 125 Cotinine Ur Ql [facility] ([facility]) Fentanyl+Norfentanyl [Presence] in Urine by Confirmatory method <5 >=5 Fentanyl+norfentanyl Ur Ql [facility] ([facility]) Carisoprodol+Meprobamate [Presence] in Urine by Screen method <200 >=200 Carisoprodol+meprob Ur Ql [facility] ([facility]) Tramadol [Presence] in Urine by Confirmatory method <100 >= 100 Tramadol Ur Ql [facility] ([facility]) pH of Urine 4.5 - 9.0 normal pH Ur [facility] ([facility]) Creatinine [Mass/volume] in Urine 34.7 mg/dL 20 - 370 normal Cr eat Ur-mcnc ETHAN ([facility]) ID Date Data Source [id number] 10/07/2019 12:00:00 AM EDT ETH[facility] ([facility]) Name Value Range Interpretation Code Description Data Debra rce(s) Supporting Document(s) ID Date Data Source [id number] 10/07/2019 12:00:00 AM EDT [facility] ([facility]) Name Value Range Interpretation Code Description Data Debra rce(s) Supporting Document(s) ID Date Data Source [id number] 10/07/2019 12:00:00 AM EDT [facility] ([facility]) Name Value Range Interpretation Code Description Data Debra rce(s) Supporting Document(s) oxycodone ur CMP 1090 NG/mL >=100 Abnormal (applies to non -numeric results) Oxycodone Ur CMP [facility] ([facility]) ID Date Data Source [id number] 10/07/2019 12:00:00 AM EDT [facility] ([facility]) Name Value Range Interpretation Code Description Data Debra rce(s) Supporting Document(s) Buprenorphine [Presence] in Urine by Confirmatory method <1 >=1 [facility] alcohol metabolites ur ql cfm <200 >=200 Alcoho l Metabolites Ur Ql Cf [facility] ([facility]) Ethyl glucuronide [Mass/volume] in Urine by Confirmatory method <50 0 >=500 Ethyl Glucuronide Ur [facility] ([facility]) Ethyl sulfate [Mass/volume] in Urine by Confirmatory method <200 >=200 Ethyl Sulfate Ur [facility] ([facility]) Amphetamines [Presence] in Urine by Confirmatory method <0 >=0 Amphetamines Ur Ql Cfm [facility] ([facility]) Tapentadol [Presence] in Urine by Confirmatory method <100 >=100 Tapentadol Ur Ql Cfm [facility] ([facility]) Opiates [Presence] in Urine by Confirmatory method >=100 >=1 00 Opiates Ur Ql [facility] ([facility]) Benzodiazepines [Presence] in Urine by Confirmatory method <50 >=50 Benzodiaz Ur Ql [facility] ([facility]) gabapentinpregabalin ur ql [facility] <5 >=5 Gabap entinpregabalin Ur Ql [facility] ([facility]) Cocaine [Presence] in Urine by Confirmatory method <50 >=50 Bze Ur Ql [facility] ([facility]) Oxycodone [Mass/volume] in Urine by Confirmatory method 568 NG/mL >=100 Oxycodone Ur [facility] ([facility]) Noroxycodone [Mass/volume] in Urine by Confirmatory method 401 NG/m L >=100 Noroxycodone Ur [facility] ([facility]) Methadone [Presence] in Urine by Confirmatory method <200 > =200 Methadone Ur Ql [facility] ([facility]) Oxymorphone [Mass/volume] in Urine by Confirmatory method 129 NG/mL >=100 Oxymorphone Ur [facility] ([facility]) 6-Monoacetylmorphine (6-ERIKA) [Presence] in Urine by Confirma tory method <10 >=10 6Mam Ur Ql [facility] ([facility]) Fentanyl+Norfentanyl [Presence] in Urine by Confirmatory method <5 >=5 Fentanyl+norfentanyl Ur Ql [facility] ([facility]) Meperidine [Presence] in Urine by Confirmatory method <100 >=100 Meperidine Ur Ql [facility] ([facility]) Tramadol [Presence] in Urine by Confirmatory method <100 >= 100 Tramadol Ur Ql [facility] ([facility]) Carisoprodol+Meprobamate [Presence] in Urine by Screen method <200 >=200 Carisoprodol+meprob Ur Ql [facility] ([facility]) Creatinine [Mass/volume] in Urine 34.7 mg/dL 20 - 370 [facility] pH of Urine 4.5 - 9.0 normal pH Ur [facility] ([facility]) Cotinine [Presence] in Urine by Confirmatory method <125 >= 125 Cotinine Ur Ql Cfm [facility] ([facility]) ID Date Data Source [id number] 10/07/2019 12:00:00 AM EDT [facility] ([facility]) Name Value Range Interpretation Code Description Data Debra rce(s) Supporting Document(s) ID Date Data Source [id number] 10/07/2019 12:00:00 AM EDT [facility] ([facility]) Name Value Range Interpretation Code Description Data Debra rce(s) Supporting Document(s) ID Date Data Source [id number] 10/07/2019 12:00:00 AM EDT [facility] ([facility]) Name Value Range Interpretation Code Description Data Debra rce(s) Supporting Document(s) oxycodone ur CMP 1090 NG/mL >=100 Abnormal (applies to non -numeric results) Oxycodone Ur CMP [facility] ([facility]) ID Date Data Source [id number] 10/07/2019 12:00:00 AM EDT [facility] ([facility]) Name Value Range Interpretation Code Description Data Debra rce(s) Supporting Document(s) Buprenorphine [Presence] in Urine by Confirmatory method <1 >=1 Buprenorphine Ur Ql Cfm [facility] ([facility]) alcohol metabolites ur ql cfm <200 >=200 Alcoho l Metabolites Ur Ql Cfm [facility] ([facility]) Ethyl glucuronide [Mass/volume] in Urine by Confirmatory method <50 0 >=500 Ethyl Glucuronide Ur Cf-nc [facility] ([facility]) Ethyl sulfate [Mass/volume] in Urine by Confirmatory method <200 >=200 Ethyl Sulfate Ur [facility] ([facility]) Amphetamines [Presence] in Urine by Confirmatory method <0 >=0 Amphetamines Ur Ql Cfm [facility] ([facility]) Tapentadol [Presence] in Urine by Confirmatory method <100 >=100 Tapentadol Ur Ql [facility] ([facility]) Benzodiazepines [Presence] in Urine by Confirmatory method <50 >=50 Benzodiaz Ur Ql [facility] ([facility]) Opiates [Presence] in Urine by Confirmatory method >=100 >=1 00 Opiates Ur Ql [facility] ([facility]) gabapentinpregabalin ur ql [facility] <5 >=5 Gabap entinpregabalin Ur Ql [facility] ([facility]) Cocaine [Presence] in Urine by Confirmatory method <50 >=50 Bze Ur Ql [facility] ([facility]) Oxymorphone [Mass/volume] in Urine by Confirmatory method 129 NG/mL >=100 Oxymorphone Ur [facility] ([facility]) 6-Monoacetylmorphine (6-ERIKA) [Presence] in Urine by Confirma tory method <10 >=10 6Mam Ur Ql [facility] ([facility]) Noroxycodone [Mass/volume] in Urine by Confirmatory method 401 NG/m L >=100 Noroxycodone Ur [facility] ([facility]) Oxycodone [Mass/volume] in Urine by Confirmatory method 568 NG/mL >=100 Oxycodone Ur [facility] ([facility]) Methadone [Presence] in Urine by Confirmatory method <200 > =200 Methadone Ur Ql [facility] ([facility]) Meperidine [Presence] in Urine by Confirmatory method <100 >=100 Meperidine Ur Ql [facility] ([facility]) Fentanyl+Norfentanyl [Presence] in Urine by Confirmatory method <5 >=5 Fentanyl+norfentanyl Ur Ql [facility] ([facility]) Carisoprodol+Meprobamate [Presence] in Urine by Screen method <200 >=200 Carisoprodol+meprob Ur Ql [facility] ([facility]) Tramadol [Presence] in Urine by Confirmatory method <100 >= 100 Tramadol Ur Ql [facility] ([facility]) Cotinine [Presence] in Urine by Confirmatory method <125 >= 125 Cotinine Ur Ql Cfm [facility] ([facility]) Creatinine [Mass/volume] in Urine 34.7 mg/dL 20 - 370 normal Cr eat Ur-mcnc [facility] ([facility]) pH of Urine 4.5 - 9.0 normal pH Ur [facility] ([facility]) ID Date Data Source [id number] 10/07/2019 12:00:00 AM EDT ETHAN ([facility]) Name Value Range Interpretation Code Description Data Debra rce(s) Supporting Document(s) ID Date Data Source [id number] 10/07/2019 12:00:00 AM EDT [facility] ([facility]) Name Value Range Interpretation Code Description Data Debra rce(s) Supporting Document(s) ID Date Data Source [id number] 10/07/2019 12:00:00 AM EDT [facility] ([facility]) Name Value Range Interpretation Code Description Data Debra rce(s) Supporting Document(s) oxycodone ur CMP 1090 NG/mL >=100 Abnormal (applies to non -numeric results) Oxycodone Ur CMP [facility] ([facility]) ID Date Data Source [id number] 10/07/2019 12:00:00 AM EDT [facility] ([facility]) Name Value Range Interpretation Code Description Data Debra rce(s) Supporting Document(s) oxycodone ur CMP 1090 NG/mL >=100 Abnormal (applies to non -numeric results) Oxycodone Ur CMP [facility] ([facility]) ID Date Data Source [id number] 10/07/2019 12:00:00 AM EDT ETHAN ([facility]) Name Value Range Interpretation Code Description Data Debra rce(s) Supporting Document(s) Buprenorphine [Presence] in Urine by Confirmatory method <1 >=1 Buprenorphine Ur Ql [facility] ([facility]) alcohol metabolites ur ql cf <200 >=200 Alcoho l Metabolites Ur Ql [facility] ([facility]) Ethyl sulfate [Mass/volume] in Urine by Confirmatory method <200 >=200 Ethyl Sulfate Ur [facility] ([facility]) Ethyl glucuronide [Mass/volume] in Urine by Confirmatory method <50 0 >=500 Ethyl Glucuronide Ur [facility] ([facility]) Amphetamines [Presence] in Urine by Confirmatory method <0 >=0 Amphetamines Ur Ql [facility] ([facility]) gabapentinpregabalin ur ql [facility] <5 >=5 Gabap entinpregabalin Ur Ql [facility] ([facility]) Benzodiazepines [Presence] in Urine by Confirmatory method <50 >=50 Benzodiaz Ur Ql [facility] ([facility]) Tapentadol [Presence] in Urine by Confirmatory method <100 >=100 Tapentadol Ur Ql [facility] ([facility]) Cocaine [Presence] in Urine by Confirmatory method <50 >=50 Bze Ur Ql [facility] ([facility]) Oxymorphone [Mass/volume] in Urine by Confirmatory method 129 NG/mL >=100 Oxymorphone Ur [facility] ([facility]) Oxycodone [Mass/volume] in Urine by Confirmatory method 568 NG/mL >=100 Oxycodone Ur [facility] ([facility]) Opiates [Presence] in Urine by Confirmatory method >=100 >=1 00 Opiates Ur Ql [facility] ([facility]) Noroxycodone [Mass/volume] in Urine by Confirmatory method 401 NG/m L >=100 Noroxycodone Ur [facility] ([facility]) 6-Monoacetylmorphine (6-ERIKA) [Presence] in Urine by Confirma tory method <10 >=10 6Mam Ur Ql [facility] ([facility]) Methadone [Presence] in Urine by Confirmatory method <200 > =200 Methadone Ur Ql [facility] ([facility]) Meperidine [Presence] in Urine by Confirmatory method <100 >=100 Meperidine Ur Ql Cfm [facility] ([facility]) Tramadol [Presence] in Urine by Confirmatory method <100 >= 100 Tramadol Ur Ql Cfm [facility] ([facility]) Fentanyl+Norfentanyl [Presence] in Urine by Confirmatory method <5 >=5 Fentanyl+norfentanyl Ur Ql Cfm [facility] ([facility]) Carisoprodol+Meprobamate [Presence] in Urine by Screen method <200 >=200 Carisoprodol+meprob Ur Ql Scn [facility] ([facility]) Cotinine [Presence] in Urine by Confirmatory method <125 >= 125 Cotinine Ur Ql Cfm [facility] ([facility]) pH of Urine 4.5 - 9.0 normal pH Ur [facility] ([facility]) Creatinine [Mass/volume] in Urine 34.7 mg/dL 20 - 370 normal Cr eat Ur-mcnc [facility] ([facility]) ID Date Data Source [id number] 10/07/2019 12:00:00 AM EDT ETH[facility] ([facility]) Name Value Range Interpretation Code Description Data Debra rce(s) Supporting Document(s) ID Date Data Source [id number] 10/07/2019 12:00:00 AM EDT ETHAN ([facility]) Name Value Range Interpretation Code Description Data Debra rce(s) Supporting Document(s) ID Date Data Source [id number] 09/21/2019 01:22:00 PM EST [facility] ([facility]) Name Value Range Interpretation Code Description Data Debra rce(s) Supporting Document(s) Thyroxine (T4) free [Mass/volume] in Serum or Plasma 1.25 ng/dL 0.89- 1.80 [facility] ([facility]) Please check methylmalonic acid and seru m protein electrophoresis with immunofixation Non Fasting Thyrotropin [Units/volume] in Serum or Plasma 2.375 mIU/ml 0.350-5.50 0 [facility] ([facility]) Please check methylmalonic acid and seru m protein electrophoresis with immunofixation Non Fasting Folate [Mass/volume] in Serum or Plasma 14.46 ng/mL 1.1-20.0 [facility] ([facility]) Please check methylmalonic acid and seru m protein electrophoresis with immunofixation Non Fasting Erythrocyte sedimentation rate by Westergren method 1 mm/hr 0-15 [facility] ([facility]) Please check methylmalonic acid and seru m protein electrophoresis with immunofixation Non Fasting Cobalamin (Vitamin B12) [Mass/volume] in Serum or Plasma 1474 pg /mL 211-911 Above high normal [facility] ([facility]) Please check methylmalonic acid and seru m protein electrophoresis with immunofixation Non Fasting C reactive protein [Mass/volume] in Serum or Plasma Laborato ry test result 0-1.0 [facility] ([facility]) Please check methylmalonic acid and seru m protein electrophoresis with immunofixation Non Fasting Rheumatoid factor [Units/volume] in Serum or Plasma 6.5 U/mL 0-13.9 9 [facility] ([facility]) Please check methylmalonic acid and seru m protein electrophoresis with immunofixation Non Fasting Nuclear Ab [Presence] in Serum Laboratory test result 0-0 [facility] ([facility]) Please check methylmalonic acid and seru m protein electrophoresis with immunofixation Non Fasting Beta 1 globulin [Mass/volume] in Serum or Plasma by Electrop horesis 0.5 g/dL 0.4-0.6 [facility] ([facility]) Please check methylmalonic acid and seru m protein electrophoresis with immunofixation Non Fasting Alpha 1 globulin/Protein.total in Serum or Plasma by Electro phoresis 0.3 g/dL 0.2-0.3 [facility] ([facility]) Please check methylmalonic acid and seru m protein electrophoresis with immunofixation Non Fasting Albumin [Mass/volume] in Serum or Plasma 3.8 g/dL 3.8-4.8 [facility] ([facility]) Please check methylmalonic acid and seru m protein electrophoresis with immunofixation Non Fasting Alpha 2 globulin/Protein.total in Serum or Plasma by Electro phoresis 0.6 g/dL 0.5-0.9 [facility] ([facility]) Please check methylmalonic acid and seru m protein electrophoresis with immunofixation Non Fasting Pdwc-1-Fgflmwyqtlvjk [Mass/volume] in Serum or Plasma 0.6 g/dL 0.2-0.5 Above high normal [facility] ([facility]) Please check methylmalonic acid and seru m protein electrophoresis with immunofixation Non Fasting Protein Fractions [Interpretation] in Serum or Plasma by Immunofixation Laboratory test result [facility] ([facility]) Serum immunofixation electrophoresis dem onstrates a faint band in IgM with no detectable corresponding light chains. Clinical correlation recommended for interpretation. Gamma globulin [Mass/volume] in Serum or Plasma by Electroph oresis 1.9 g/dL 0.8-1.7 Above high normal [facility] ([facility]) Please check methylmalonic acid and seru m protein electrophoresis with immunofixation Non Fasting Protein [Mass/volume] in Serum or Plasma 7.7 g/dL 6.1-8.1 [facility] ([facility]) Please check methylmalonic acid and seru m protein electrophoresis with immunofixation Non Fasting Methylmalonate [Moles/volume] in Serum or Plasma 170 nmol/L 87-318 [facility] ([facility]) See Note 1 Note 1 This test was developed and its analytical performance characteristics have been determined by [facility]. It has not been cleared or approved by the FDA. This assay has been validated pursuant to the CLIA regulations and is used for clinical purposes. [id number] interpretation in Amniotic fluid Laboratory iwona t result [facility] ([facility]) Beta-2 globulin is increased. This lana cameron can be seen in inflammatory states. However, a monoclonal protein cannot be ruled out. Serum immunofixation is suggested if clinically indicated. Increase in gamma globulins is noted. Consider ordering immunoglobulin quantification to confirm. Venipuncture Laboratory test result [facility] ([facility]) Please check methylmalonic acid and seru m protein electrophoresis with immunofixation Non Fasting ID Date Data Source [id number] 09/23/2019 09:02:00 AM EST Platypi tics Received: 09/22/2019 at 03:03:00 QPT : [facility], [address], [address] [place], [address], Walt Guerrero MD Received: 09/22/2019 at 03:03:00 QPT : [facility], [address], [address] [place], [address], Walt Guerrero MD Received: 09/22/2019 at 03:03:00 QPT : [facility], [address], [address] [place], [address], Walt Guerrero MD Received: 09/22/2019 at 03:03:00 QPT : [facility], [address], [address] [place], [address], Walt Guerrero MD Name Value Range Interpretation Code Description Data Debra rce(s) Supporting Document(s) ID Date Data Source [id number] 09/23/2019 09:02:00 AM EST [facility] Received: 09/22/2019 at 03:03:00 QPT : [facility], [address], [address] [place] [address], [phone], Walt Guerrero MD Received: 09/22/2019 at 03:03:00 QPT : [facility], [address], [address] [place], [address], Walt Guerrero MD Received: 09/22/2019 at 03:03:00 QPT : [facility], [address], [address] [place], [address], Walt Guerrero MD Received: 09/22/2019 at 03:03:00 QPT : [facility], [address], [address] [place], [address]Walt MD Name Value Range Interpretation Code Description Data Debra rce(s) Supporting Document(s) Protein [Mass/volume] in Serum or Plasma 7.7 g/dL 6.1-8.1 Normal (applies to non-numeric results) [facility] ID Date Data Source [id number] 09/23/2019 09:02:00 AM EST [facility] Received: 09/22/2019 at 03:03:00 QPT : [facility], [address], [address] [place], [address], Walt Guerrero MD Received: 09/22/2019 at 03:03:00 QPT : [facility], [address], [address] [place], [address], Walt Guerrero MD Received: 09/22/2019 at 03:03:00 QPT : [facility], [address], [address] [place], [address], Walt Guerrero MD Received: 09/22/2019 at 03:03:00 QPT : [facility], [address], [address] [place], [address], Walt Guerrero MD Name Value Range Interpretation [...] quantification to confirm. ID Date Data Source [id number] 09/23/2019 09:02:00 AM EST [facility] Received: 09/22/2019 at 03:03:00 QPT : [facility], [address], [address] [place], [address], Walt Guerrero MD Received: 09/22/2019 at 03:03:00 QPT : [facility], [address], [address] [place], [address], Walt Guerrero MD Received: 09/22/2019 at 03:03:00 QPT : [facility], [address], [address] [place], [address], Walt Guerrero MD Received: 09/22/2019 at 03:03:00 QPT : [facility], [address], [address] [place], [address], Walt Guerrero MD Name Value Range Interpretation Code Description Data Debra rce(s) Supporting Document(s) Immunofixation for Serum or Plasma [facility] Serum immunofixation electrophoresis dem onstrates a faint band in IgMwith no detectable corresponding light chains. Clinical correlationrecommended for interpretation. ID Date Data Source [id number] 09/23/2019 09:02:00 AM EST [facility] Received: 09/22/2019 at 03:03:00 QPT : [facility], [address], [address] [place], [address]Walt MD Received: 09/22/2019 at 03:03:00 QPT : [facility], [address], [address] [place], [address]Walt MD Received: 09/22/2019 at 03:03:00 QPT : [facility], [address], [address] [place] [address], [phone] MD Received: 09/22/2019 at 03:03:00 QPT : [facility], [address], [address] [place], [address], Walt Guerrero MD Name Value Range Interpretation Code Description Data Debra rce(s) Supporting Document(s) Methylmalonate [Moles/volume] in Serum or Plasma 170 nmol/L 87-318 Normal (applies to non-numeric results) [facility] See Note 1Note 1This test was developed and its analytical performancecharacteristics have been determined by [employer]. It has not been cleared or approved by theFDA. This assay has been validated pursuant to the CLIAregulations and is used for clinical purposes. ID Date Data Source [id number] 09/16/2019 07:29:42 AM EST [facility], PCName: Bobby TapiaDOB: 2Provider: [...] (Z79.891) 4. 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 retirement (current) use of opiate analgesic (V58.69) (Z79.891) [...] 1 TO 2 TABLETS AT BEDTIME MDD:2;Therapy: [id number] to (Evaluate:[id number]) Requested for: [id number]; LastRx:[id number] Ordered Fish Oil CAPS;Therapy: (Recorded:24Nov2018) to Re [...] Status: Hold For - Scheduling Requested for: [id number] Appointment for 15 or 30 minutes : Schedule 15 minute appointmentSchedule With: : Aashish Forrestchedule : Follow-up in 2 months Medication:. NIMISHA STOGIE PACKER Information: STOGIE PACKER was consulted by my designee and I [...] months. I gave him the number to [facility]. He wrote down some [...] rce(s) Supporting Document(s) ID Date Data Source [id number] 09/03/2019 01:04:59 PM EST [facility], PCName: Bobby yeison WillieDOB: 2Provider: Mallory Forrest: 09/02/2019 Chief ComplaintChronic bilateral hand and feet neuropathy Chief Complaint 2Chronic low back pain [facility] VAS PAIN Established: AMISH completing section: [...] (Z79.891) 4. 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 retirement (current) use of opiate analgesic (V58.69) (Z79.891) [...] NO DRIVING WHILE USINGVALIUM MDD:3;Therapy: 31Aug2019 to (Evaluate:[id number]) Requested for: 31Aug2019; LastRx:31Aug2019 Ordered Fish Oil CAPS;Therapy: (Recorded:24Nov2018) to Recorded Methadone HCl - 5 MG Oral Tablet; TAKE 1 TABLET 3 times daily MDD:3;Therapy: 04Aug2019 to (Evaluate:[id number]) Requested for: 04Aug2019; LastRx:04Aug2019 OrderedLD 08/29/2019 Tarka [...] weeks Follow Up Follow-up Status: Complete Done: [id number] Appointment for 15 or 30 minutes : [...] agrees to discontinue medication and to contact [facility], friend(s) or family member(s), and/or 1 [...] will continue with the following: NEUROLOGY. - [employer]: The patient was counseled on the following: treatment plan and future treatment options (CONSIDER NEUROMODULATOR). Discussion/Mx[age]xcim61 yr. old male who presents today complaints [...] he presented for pill waist of the [place] ER on 08/04/2019. He was provided with [...] 11:32AM EST (Author) Electronically signed by : Jarord Garcia MD; Sep 03 2019 1:04PM EST Name Value Range Interpretation Code Description Data Debra rce(s) Supporting Document(s) Procedure Social History Code Duration Value Status Description Data Source(s ) Smoking 05/05/2020 12:00:00 AM EDT Never smoked tobacco (findi ng) completed Never smoked tobacco (finding) [facility] Smoking 12/09/2019 12:00:00 AM EDT Patient has never smoked co mpleted Patient has never smoked MEDENT ([facility]) Smoking 12/04/2019 03:25:00 PM EDT Denies Ever Smoked complete d Denies Ever Smoked [facility] Smoking 12/01/2019 12:00:00 AM EDT Never smoked tobacco (findi ng) completed Never smoked tobacco (finding) DEEDEE ([facility]) Smoking 10/08/2019 12:00:00 AM EDT Never smoked tobacco (findi ng) completed Never smoked tobacco (finding) [facility] Assertion 10/08/2019 12:00:00 AM EDT Finding relat ing to drug misuse behavior (finding) completed Finding relating to drug misuse behavior (finding) [facility]ED[facility] ([facility] Assertion 10/08/2019 12:00:00 AM EDT Current drinker of al cohol (finding) completed Current drinker of alcohol (finding) DEEDEE ([facility]) Smoking 09/07/2019 12:00:00 AM EST Never smoked tobacco (findi ng) completed Never smoked tobacco (finding) [facility] Vital Signs ID Date Data Source UNK Name Value Range Interpretation Code Description Data Source(s) Heart rate 78 /min 78 /min [facility]) Diastolic blood pressure 76 mm[Hg] 76 mm[Hg] [facility] ([facility], [facility]) Systolic blood pressure 127 mm[Hg] 127 mm[Hg] M EDENT ([facility], [facility]) Body mass index (BMI) [Ratio] 25.5 kg/m2 25.5 k g/m2 [facility] ([facility]) Body height 72 [in_i] 72 [in_i] [facility] ([facility]) 6'0" Body weight 188.00 [lb_av] 188.00 [lb_av] MEDEN T ([facility]) Body temperature 98.7 [degF] 98.7 [degF] [facility] ([facility]) Oxygen saturation in Arterial blood by Pulse oximetry 99 % 99 % [facility] ([facility], [facility]) Respiratory rate 16 /min 16 /min [facility] ( [facility]) Systolic blood pressure 131 mm[Hg] 131 mm[Hg] A THENA ([facility]) Body height 72 [in_i] 72 [in_i] ETHAN ([facility]) Diastolic blood pressure 78 mm[Hg] 78 mm[Hg] ETHAN ([facility]) Body weight 90.720 kg 90.[address] ([facility], ) Sandoval body weight 178 [lb_av] 178 [lb_av] MEDEN T ([facility], ) Body mass index (BMI) [Ratio] 27.1 kg/m2 27.1 k g/m2 [facility] ([facility], ) Body weight 200.00 [lb_av] 200.00 [lb_av] MEDEN T ([facility], ) Body height 72 [in_i] 72 [in_i] [facility] ([facility], ) 6'0" Systolic blood pressure 156 mm[Hg] 156 mm[Hg] A THENA ([facility]) Body height 72 [in_i] 72 [in_i] ETHAN ([facility]) Diastolic blood pressure 89 mm[Hg] 89 mm[Hg] ETHAN ([facility]) Systolic blood pressure 156 mm[Hg] 156 mm[Hg] A THENA ([facility]) Body height 72 [in_i] 72 [in_i] ETHAN ([facility]) Diastolic blood pressure 89 mm[Hg] 89 mm[Hg] ETHAN ([facility]) Systolic blood pressure 156 mm[Hg] 156 mm[Hg] A THENA ([facility]) Body height 72 [in_i] 72 [in_i] ETHAN ([facility]) Diastolic blood pressure 89 mm[Hg] 89 mm[Hg] ETHAN ([facility]) Body temperature 97.2 [degF] 97.2 [...] 148 mm[Hg] A THENA ([facility]) Body height 72 [in_i] 72 [in_i] ETHAN ([facility]) Diastolic blood pressure 79 mm[Hg] 79 mm[Hg] ETHAN ([facility]) Systolic blood pressure 148 mm[Hg] 148 mm[Hg] A THENA ([facility]) Body height 72 [in_i] 72 [in_i] ETHAN ([facility]) Diastolic blood pressure 79 mm[Hg] 79 mm[Hg] ETHAN ([facility]) Systolic blood pressure 148 mm[Hg] 148 mm[Hg] A THENA ([facility]) Body height 72 [in_i] 72 [in_i] ETHAN ([facility]) Diastolic blood pressure 79 mm[Hg] 79 mm[Hg] ETHAN ([facility]) Systolic blood pressure 148 mm[Hg] 148 mm[Hg] A THENA ([facility]) Body height 72 [in_i] 72 [in_i] ETHAN ([facility]) Diastolic blood pressure 79 mm[Hg] 79 mm[Hg] ETHAN ([facility]) Diastolic blood pressure 68 mm[Hg] 68 mm[Hg] DEEDEE ([facility]) Systolic blood pressure 150 mm[Hg] 150 mm[Hg] G REENWAY ([facility]) Diastolic blood pressure 84 mm[Hg] 84 mm[Hg] DEEDEE ([facility]) repeat BP Systolic blood pressure 158 mm[Hg] 158 mm[Hg] G REENWAY ([facility]) repeat BP Inhaled oxygen concentration 21 % 21 % DEEDEE ([facility]) Inhaled oxygen flow rate 0 L/min 0 L/min DEEDEE ([facility]) Oxygen saturation in Arterial blood by Pulse oximetry 98 % 98 % DEEDEE ([facility]) PhenX - pain, abdominal - type and intensity protocol 7 7 DEEDEE ([facility]) Body surface area Derived from formula 2.19 m2 2.19 m2 DEEDEE ([facility]) Body mass index (BMI) [Ratio] 31.6 kg/m2 31.6 k g/m2 DEEDEE ([facility]) Body weight 222 [lb_av] 222 [lb_av] [facility] Body height 70.25 [in_i] 70.25 [in_i] DEEDEE ([facility]) Body temperature 96.9 [degF] 96.9 [degF] ELDRIDGEW ([facility]) Respiratory rate 18 /min 18 /min DEEDEE ([facility]) Heart rate rhythm 1 1 GREENWA Y ([facility]) Heart rate 71 /min 71 /min DEEDEE ([facility]) Diastolic blood pressure 90 mm[Hg] 90 mm[Hg] DEEDEE ([facility]) Systolic blood pressure 164 mm[Hg] 164 mm[Hg] G KRISTY ([facility]) Body height 72 [in_i] 72 [in_i] ETHAN ([facility]) Body height 72 [in_i] 72 [in_i] ETHAN ([facility]) Body height 72 [in_i] 72 [in_i] ETHAN ([facility]) Body height 72 [in_i] 72 [in_i] EHTAN ([facility]) Body height 72 [in_i] 72 [in_i] ETHAN ([facility]) Body height 72 [in_i] 72 [in_i] ETHAN ([facility]) Body height 72 [in_i] 72 [in_i] ETHAN ([facility]) Diastolic blood pressure--sitting 78 mm[Hg] 78 mm[Hg] MEDENT ([facility]) [place] adult cuff, [place] Systolic blood pressure--sitting 151 mm[Hg] 151 mm[Hg] MEDENT ([facility]) [place] adult cuff, [place] Heart rate 87 /min 87 /min MEDENT ([facility] Body mass index (BMI) [Ratio] 30.0 kg/m2 30.0 k g/m2 MEDENT ([facility]) Body height 72 [in_i] 72 [in_i] MEDENT ([facility]) 6'0" Body weight 221.00 [lb_av] 221.00 [lb_av] MEDEN T ([facility]) Body temperature 36.9 jerilyn Normal (applies to non-numeric results) 36.9 jerilyn [facility] Respiratory rate 18 min Normal (applies to non-numeric results) 18 min [facility] Body height 182.88 cm Normal (applies to non-numeric resu lts) 182.88 cm [facility] Heart rate 83 min Normal (applies to non-numeric resul ts) 83 min [facility] Diastolic blood pressure 89 mm[Hg] Normal (applies to non-numeric results) 89 mm[Hg] [facility] Systolic blood pressure 156 mm[Hg] Normal (applies t o non-numeric results) 156 mm[Hg] [facility] Deprecated Oxygen saturation in Capillary blood by Oximetry 97 % Normal (applies to non-numeric results) 97 % [facility] Inhaled oxygen concentration 40 % Normal (appl ies to non-numeric results) 40 % [facility] Body mass index (BMI) [Ratio] 33.9 kg/m2 No rmal (applies to non-numeric results) 33.9 kg/m2 [facility] Body weight Measured 250 [lb_av] Normal (applies to n on-numeric results) 250 [lb_av] [facility] Diastolic blood pressure 88 mm[Hg] 88 mm[Hg] DEEDEE ([facility]) repeat BP Systolic blood pressure 164 mm[Hg] 164 mm[Hg] [facility] repeat BP Diastolic blood pressure 88 mm[Hg] 88 mm[Hg] DEEDEE ([facility]) repeat BP Systolic blood pressure 154 mm[Hg] 154 mm[Hg] G [facility] ([facility]) repeat BP Inhaled oxygen concentration 21 % 21 % DEEDEE ([facility]) temperature taken by Murtaza Valladares LPN Inhaled oxygen flow rate 0 L/min 0 L/min DEEDEE ([facility]) temperature taken by Murtaza Valladares LPN Oxygen saturation in Arterial blood by Pulse oximetry 97 % 97 % SCURRY ([facility]) temperature taken by Murtaza Valladares LPN PhenX - pain, abdominal - type and intensity protocol 5 5 DEEDEE ([facility]) temperature taken by Murtaza Valladares LPN Body weight 257 [lb_av] 257 [lb_av] DEEDEE ([facility]) temperature taken by Murtaza Valladares LPN Body temperature 98.4 [degF] 98.4 [degF] [facility] AY ([facility]) temperature taken by Murtaza Valladares LPN Respiratory rate 18 /min 18 /min DEEDEE ([facility]) temperature taken by Murtaza Valladares LPN Heart rate rhythm 1 1 GREENWA Y ([facility]) temperature taken by Murtaza Valladares LPN Heart rate 91 /min 91 /min DEEDEE ([facility]) temperature taken by Murtaza Valladares LPN Diastolic blood pressure 92 mm[Hg] 92 mm[Hg] DEEDEE ([facility]) temperature taken by Murtaza Valladares LPN Systolic blood pressure 160 mm[Hg] 160 mm[Hg] G REENWAY ([facility]) temperature taken by Murtaza Valladares LPN Body weight 207 [lb_av] 207 [lb_av] ETHAN ([facility]) Systolic blood pressure 134 mm[Hg] 134 mm[Hg] A THENA ([facility]) Body mass index (BMI) [Ratio] 28.1 kg/m2 28.1 k g/m2 ETHAN ([facility]) Body height 72 [in_i] 72 [in_i] ETHAN ([facility]) Diastolic blood pressure 79 mm[Hg] 79 mm[Hg] ETHAN ([facility]) Body weight 207 [lb_av] 207 [lb_av] ETHAN ([facility]) Systolic blood pressure 134 mm[Hg] 134 mm[Hg] A THENA ([facility]) Body mass index (BMI) [Ratio] 28.1 kg/m2 28.1 k g/m2 ETHAN ([facility]) Body height 72 [in_i] 72 [in_i] ETHAN ([facility]) Diastolic blood pressure 79 mm[Hg] 79 mm[Hg] ETHAN ([facility]) Body weight 207 [lb_av] 207 [lb_av] ETHAN ([facility]) Systolic blood pressure 134 mm[Hg] 134 mm[Hg] A THENA ([facility]) Body mass index (BMI) [Ratio] 28.1 kg/m2 28.1 k g/m2 ETHAN ([facility]) Body height 72 [in_i] 72 [in_i] ETHAN ([facility]) Diastolic blood pressure 79 mm[Hg] 79 mm[Hg] ETHAN ([facility]) Body weight 207 [lb_av] 207 [lb_av] ETHAN ([facility]) Systolic blood pressure 134 mm[Hg] 134 mm[Hg] A THENA ([facility]) Body mass index (BMI) [Ratio] 28.1 kg/m2 28.1 k g/m2 ETHAN ([facility]) Body height 72 [in_i] 72 [in_i] ETHAN ([facility]) Diastolic blood pressure 79 mm[Hg] 79 mm[Hg] ETHAN ([facility]) Body weight 207 [lb_av] 207 [lb_av] ETHAN ([facility]) Systolic blood pressure 134 mm[Hg] 134 mm[Hg] A THENA ([facility]) Body mass index (BMI) [Ratio] 28.1 kg/m2 28.1 k g/m2 ETHAN ([facility]) Body height 72 [in_i] 72 [in_i] ETHAN ([facility]) Diastolic blood pressure 79 mm[Hg] 79 mm[Hg] ETHAN ([facility]) Body weight 207 [lb_av] 207 [lb_av] ETHAN ([facility]) Systolic blood pressure 134 mm[Hg] 134 mm[Hg] A THENA ([facility]) Body mass index (BMI) [Ratio] 28.1 kg/m2 28.1 k g/m2 ETHAN ([facility]) Body height 72 [in_i] 72 [in_i] ETHAN ([facility]) Diastolic blood pressure 79 mm[Hg] 79 mm[Hg] ETHAN ([facility]) Body weight 207 [lb_av] 207 [lb_av] ETHAN ([facility]) Systolic blood pressure 134 mm[Hg] 134 mm[Hg] A THENA ([facility]) Body mass index (BMI) [Ratio] 28.1 kg/m2 28.1 k g/m2 ETHAN ([facility]) Body height 72 [in_i] 72 [in_i] ETHAN ([facility]) Diastolic blood pressure 79 mm[Hg] 79 mm[Hg] ETHAN ([facility]) Body weight 207 [lb_av] 207 [lb_av] ETHAN ([facility]) Systolic blood pressure 134 mm[Hg] 134 mm[Hg] A THENA ([facility]) Body mass index (BMI) [Ratio] 28.1 kg/m2 28.1 k g/m2 ETHAN ([facility]) Body height 72 [in_i] 72 [in_i] ETHAN ([facility]) Diastolic blood pressure 79 mm[Hg] 79 mm[Hg] ETHAN ([facility]) Body weight 207 [lb_av] 207 [lb_av] ETHAN ([facility]) Systolic blood pressure 134 mm[Hg] 134 mm[Hg] A THENA ([facility]) Body mass index (BMI) [Ratio] 28.1 kg/m2 28.1 k g/m2 ETHAN ([facility]) Body height 72 [in_i] 72 [in_i] ETHAN ([facility]) Diastolic blood pressure 79 mm[Hg] 79 mm[Hg] ETHAN ([facility]) Body weight 207 [lb_av] 207 [lb_av] ETHAN ([facility]) Systolic blood pressure 134 mm[Hg] 134 mm[Hg] A THENA ([facility]) Body mass index (BMI) [Ratio] 28.1 kg/m2 28.1 k g/m2 ETHAN ([facility]) Body height 72 [in_i] 72 [in_i] ETHAN ([facility]) Diastolic blood pressure 79 mm[Hg] 79 mm[Hg] ETHAN ([facility]) Inhaled oxygen concentration 21 % 21 % DEEDEE ([facility]) Inhaled oxygen flow rate 0 L/min 0 L/min DEEDEE ([facility]) Oxygen saturation in Arterial blood by Pulse oximetry 98 % 98 % DEEDEE ([facility]) PhenX - pain, abdominal - type and intensity protocol 9 9 DEEDEE ([facility]) Body weight 210 [lb_av] 210 [lb_av] DEEDEE ([facility]) Body temperature 97.2 [degF] 97.2 [degF] GREENW AY ([facility]) Respiratory rate 20 /min 20 /min DEEDEE ([facility]) Heart rate rhythm 1 1 GREENWA Y ([facility]) Heart rate 84 /min 84 /min [facility] Diastolic blood pressure 78 mm[Hg] 78 mm[Hg] DEEDEE ([facility]) Systolic blood pressure 130 mm[Hg] 130 mm[Hg] G REENWAY ([facility]) Body weight 207 [lb_av] 207 [lb_av] ETHAN ([facility]) Systolic blood pressure 121 mm[Hg] 121 mm[Hg] A THENA ([facility]) Body mass index (BMI) [Ratio] 28.1 kg/m2 28.1 k g/m2 ETHAN ([facility]) Body height 72 [in_i] 72 [in_i] ETHAN ([facility]) Diastolic blood pressure 79 mm[Hg] 79 mm[Hg] ETHAN ([facility]) Body weight 207 [lb_av] 207 [lb_av] ETHAN ([facility]) Systolic blood pressure 121 mm[Hg] 121 mm[Hg] A THENA ([facility]) Body mass index (BMI) [Ratio] 28.1 kg/m2 28.1 k g/m2 ETHAN ([facility]) Body height 72 [in_i] 72 [in_i] ETHAN ([facility]) Diastolic blood pressure 79 mm[Hg] 79 mm[Hg] ETHAN ([facility]) Body weight 207 [lb_av] 207 [lb_av] [facility] ([facility] Systolic blood pressure 121 mm[Hg] 121 mm[Hg] A THENA ([facility]) Body mass index (BMI) [Ratio] 28.1 kg/m2 28.1 k g/m2 ETHAN ([facility]) Body height 72 [in_i] 72 [in_i] ETHAN ([facility]) Diastolic blood pressure 79 mm[Hg] 79 mm[Hg] ETHAN ([facility]) Body weight 207 [lb_av] 207 [lb_av] [facility]AN ([facility]) Systolic blood pressure 121 mm[Hg] 121 mm[Hg] A THENA ([facility]) Body mass index (BMI) [Ratio] 28.1 kg/m2 28.1 k g/m2 ETHAN ([facility]) Body height 72 [in_i] 72 [in_i] ETHAN ([facility]) Diastolic blood pressure 79 mm[Hg] 79 mm[Hg] ETHAN ([facility]) Body weight 207 [lb_av] 207 [lb_av] ETHAN ([facility]) Systolic blood pressure 121 mm[Hg] 121 mm[Hg] A THENA ([facility]) Body mass index (BMI) [Ratio] 28.1 kg/m2 28.1 k g/m2 ETHAN ([facility]) Body height 72 [in_i] 72 [in_i] ETHAN ([facility]) Diastolic blood pressure 79 mm[Hg] 79 mm[Hg] ETHAN ([facility]) Body weight 207 [lb_av] 207 [lb_av] ETHAN ([facility]) Systolic blood pressure 121 mm[Hg] 121 mm[Hg] A THENA ([facility]) Body mass index (BMI) [Ratio] 28.1 kg/m2 28.1 k g/m2 ETHAN ([facility]) Body height 72 [in_i] 72 [in_i] ETHAN ([facility]) Diastolic blood pressure 79 mm[Hg] 79 mm[Hg] ETHAN ([facility]) Body weight 207 [lb_av] 207 [lb_av] ETHAN ([facility]) Systolic blood pressure 121 mm[Hg] 121 mm[Hg] A THENA ([facility]) Body mass index (BMI) [Ratio] 28.1 kg/m2 28.1 k g/m2 ETHAN ([facility]) Body height 72 [in_i] 72 [in_i] ETHAN ([facility]) Diastolic blood pressure 79 mm[Hg] 79 mm[Hg] ETHAN ([facility]) Body weight 207 [lb_av] 207 [lb_av] ETHAN ([facility]) Systolic blood pressure 121 mm[Hg] 121 mm[Hg] A THENA ([facility]) Body mass index (BMI) [Ratio] 28.1 kg/m2 28.1 k g/m2 ETHAN ([facility]) Body height 72 [in_i] 72 [in_i] ETHAN ([facility]) Diastolic blood pressure 79 mm[Hg] 79 mm[Hg] ETHAN ([facility]) Body weight 207 [lb_av] 207 [lb_av] ETHAN ([facility]) Systolic blood pressure 121 mm[Hg] 121 mm[Hg] A THENA ([facility]) Body mass index (BMI) [Ratio] 28.1 kg/m2 28.1 k g/m2 ETHAN ([facility]) Body height 72 [in_i] 72 [in_i] ETHAN ([facility]) Diastolic blood pressure 79 mm[Hg] 79 mm[Hg] ETHAN ([facility]) Body weight 207 [lb_av] 207 [lb_av] ETHAN ([facility]) Systolic blood pressure 121 mm[Hg] 121 mm[Hg] A THENA ([facility]) Body mass index (BMI) [Ratio] 28.1 kg/m2 28.1 k g/m2 ETHAN ([facility]) Body height 72 [in_i] 72 [in_i] ETHAN ([facility]) Diastolic blood pressure 79 mm[Hg] 79 mm[Hg] ETHAN ([facility]) Body weight 207 [lb_av] 207 [lb_av] ETHAN ([facility]) Systolic blood pressure 121 mm[Hg] 121 mm[Hg] A THENA ([facility]) Body mass index (BMI) [Ratio] 28.1 kg/m2 28.1 k g/m2 ETHAN ([facility]) Body height 72 [in_i] 72 [in_i] ETHAN ([facility]) Diastolic blood pressure 79 mm[Hg] 79 mm[Hg] ETHAN ([facility]) Respiratory rate 16 /min 16 /min MEDENT ( [facility]) Heart rate 118 /min 118 /min MEDENT ([facility]) Diastolic blood pressure 86 mm[Hg] 86 mm[Hg] MEDENT ([facility]) Systolic blood pressure 128 mm[Hg] 128 mm[Hg] M EDENT ([facility]) Body mass index (BMI) [Ratio] 27.8 kg/m2 27.8 k g/m2 MEDENT ([facility]) Body weight 205.00 [lb_av] 205.00 [lb_av] MEDEN T ([facility]) Body height 72 [in_i] 72 [in_i] MEDENT ([facility]) 6'0" Inhaled oxygen concentration 21 % 21 % SCURRY ([facility]) Inhaled oxygen flow rate 0 L/min 0 L/min [facility] ([facility]) Oxygen saturation in Arterial blood by Pulse oximetry 96 % 96 % [facility] ([facility]) PhenX - pain, abdominal - type and intensity protocol 8 8 [facility] ([facility]) Body weight 207 [lb_av] 207 [lb_av] [facility] Body temperature 98.3 [degF] 98.3 [degF] [facility] ([facility]) Respiratory rate 22 /min 22 /min [facility] ([facility]) Heart rate 107 /min 107 /min [facility] ([facility]) Diastolic blood pressure 94 mm[Hg] 94 mm[Hg] [facility] ([facility]) Systolic blood pressure 146 mm[Hg] 146 mm[Hg] [facility] Patient Treatment Plan of Care Planned Activity Planned Date Details Description Data Source (s) Hydrochlorothiazide 12.5 MG Oral Tablet 05/05/2020 12:00:00 AM [facility] ([facility]) 24 HR trandolapril 4 MG / Verapamil hydr ochloride 240 MG Extended Release Oral Tablet [Tarka] 05/05/2020 12:00:00 AM [facility] ([facility]) Hydrochlorothiazide 12.5 MG Oral Tablet 12/01/2019 12:00:00 AM [facility] ([facility]) glimepiride 2 MG Oral Tablet 10/08/2019 12:00:00 AM [facility] ([facility]) Clonidine Hydrochloride 0.1 MG Oral Tablet 09/08/2019 12:00:[address] [facility] ([facility]) Ondansetron 4 MG Disintegrating Oral Tablet 09/08/2019 12:00:00 AM EST [facility] ([facility]) Hydrochlorothiazide 12.5 MG Oral Tablet 01/15/2019 12:00:00 AM [facility] ([facility]) 24 HR trandolapril 4 MG / Verapamil hydr ochloride 240 MG Extended Release Oral Tablet [Tarka] 01/15/2019 12:00:00 AM [facility] ([facility]) Mupirocin 0.02 MG/MG Topical Ointment 01/14/2019 12:00:00 AM ED[facility] Methadone Hydrochloride 10 MG Oral Tablet 10/31/2018 12:00:00 AM ED T [facility] ([facility]) 24 HR Metformin hydrochloride 500 MG Extended Release Oral Tablet 10/01/2018 12:00:00 AM EST [facility] ([facility]) Capsaicin 0.25 MG/ML Topical Cream 10/01/2018 12:00:00 AM EST [facility] ([facility]) Fish Oil 1000 MG OR CAPS 02/09/2011 12:00:00 AM EDT [facility] ([facility]) Spironolactone 100 MG Oral Tablet ETHAN ([facility]) 12 HR Oxycodone Hydrochloride 10 MG Extended Release Oral [place] [Oxycontin] ETHAN ([facility]) Morphine Sulfate 15 MG Extended Release Oral Tablet ETHAN ([facility]) Methadone Hydrochloride 5 MG Oral Tablet ETHAN ([facility]) Methadone Hydrochloride 10 MG Oral Tablet ETHAN ([facility]) glimepiride 2 MG Oral Tablet ETHAN ([facility]) duloxetine 30 MG Delayed Release Oral Capsule ETHAN ([facility]) doxycycline hyclate 100 MG Oral Capsule ETHAN ([facility]) Diazepam 5 MG Oral Tablet AT JARRET ([facility]) Aspirin 81 MG Chewable Tablet ETHAN ([facility]) 24 HR trandolapril 4 MG / Verapamil hydr ochloride 240 MG Extended Release Oral Tablet [facility] Spironolactone 100 MG Oral Tablet ETHAN ([facility]) 12 HR Oxycodone Hydrochloride 10 MG Extended Release Oral [place] [Oxycontin] ETHAN ([facility]) Morphine Sulfate 15 MG Extended Release Oral Tablet ETHAN ([facility]) Methadone Hydrochloride 5 MG Oral Tablet ETHAN ([facility]) Methadone Hydrochloride 10 MG Oral Tablet ETHAN ([facility]) glimepiride 2 MG Oral Tablet ETHAN ([facility]) duloxetine 30 MG Delayed Release Oral Capsule ETHAN ([facility]) doxycycline hyclate 100 MG Oral Capsule ETHAN ([facility]) Diazepam 5 MG Oral Tablet AT JARRET ([facility]) Aspirin 81 MG Chewable Tablet ETHAN ([facility]) Methadone Hydrochloride 5 MG Oral Tablet ETHAN ([facility]) Methadone Hydrochloride 10 MG Oral Tablet ETHAN ([facility]) Diazepam 5 MG Oral Tablet AT JARRET ([facility]) Methadone Hydrochloride 5 MG Oral Tablet ETHAN ([facility]) Methadone Hydrochloride 10 MG Oral Tablet ETHAN ([facility]) Diazepam 5 MG Oral Tablet AT JARRET ([facility]) Methadone Hydrochloride 5 MG Oral Tablet ETHAN ([facility]) Methadone Hydrochloride 10 MG Oral Tablet ETHAN ([facility]) Diazepam 5 MG Oral Tablet AT JARRET ([facility]) Diazepam 5 MG Oral Tablet AT JARRET ([facility]) Diazepam 5 MG Oral Tablet AT JARRET ([facility]) Diazepam 5 MG Oral Tablet AT JARRET ([facility]) 168 HR Buprenorphine 0.005 MG/HR Transdermal Patch ETHAN ([facility]) Amitriptyline Hydrochloride 25 MG Oral Tablet ETHAN ([facility]) Diazepam 5 MG Oral Tablet AT JARRET ([facility]) 168 HR Buprenorphine 0.005 MG/HR Transdermal Patch ETHAN ([facility]) Amitriptyline Hydrochloride 25 MG Oral Tablet ETHAN ([facility]) Diazepam 5 MG Oral Tablet AT JARRET ([facility]) Amitriptyline Hydrochloride 25 MG Oral Tablet ETHAN ([facility]) Diazepam 5 MG Oral Tablet AT JARRET ([facility]) Amitriptyline Hydrochloride 25 MG Oral Tablet ETHAN ([facility])
--- NOTE | 2020-09-16 15:36 | REP ---
INDICATION: Syncope/near-syncope. COMPARISON: Comparison chest x-ray September 05, 2020. TECHNIQUE: Portable upright AP chest radiograph. FINDINGS: The lungs are well inflated and free of infiltrate. Pleural angles are sharp. Heart size is normal. Pulmonary vasculature is not increased. Monitoring electrodes are noted. There are surgical clips again noted in the left axilla. IMPRESSION: No active disease. <Electronically signed by Kemal Lam > 09/16/20 [id number]
[2020-09-16 15:40] LABS: BLOOD UREA NITROGEN 38 MG/DL (7-18); CALCIUM LEVEL 9.4 MG/DL (8.8-10.2); CARBON DIOXIDE LEVEL 29 MEQ/L (21-32); CHLORIDE LEVEL 96 MEQ/L (98-107); CK-MB VALUE MASS 2.8 NG/ML (<3.6); CPK CREATINE PHOSPHOKINASE 138 U/L (39-308); CREATININE FOR GFR 2.45 MG/DL (0.70-1.30); ETHYL ALCOHOL (ETHANOL) < 0.003 % (0.000-0.010); GLOMERULAR FILTRATION RATE 28.1 (>49); GLUCOSE, FASTING 231 MG/DL (70-100); MAGNESIUM LEVEL 1.8 MG/DL (1.8-2.4); MB/CK RELATIVE INDEX 2.03 (< OR =4); SODIUM LEVEL 132 MEQ/L (136-145); TROPONIN I < 0.02 NG/ML (< 0.10)
[2020-09-16 15:45] LABS: INR 1.2; PROTHROMBIN TIME 15.5 SECONDS (12.5-14.3)
[2020-09-16] MEDS ORDERED: TAMS1CAP17 PO (17:48)
[2020-09-16] MEDS ORDERED: DULO1CAP4 PO (17:48)
[2020-09-16 18:28] LABS: AMPHETAMINES LEVEL URINE NEGATIVE (NEGATIVE); BARBITURATES URINE NEGATIVE (NEGATIVE); BENZODIAZEPINES URINE NEGATIVE (NEGATIVE); CANNABINOIDS URINE NEGATIVE (NEGATIVE); COCAINE METABOLITE URINE NEGATIVE (NEGATIVE); METHADONE URINE NEGATIVE (NEGATIVE); OPIATES URINE POSITIVE (NEGATIVE); PHENCYCLIDINE URINE NEGATIVE (NEGATIVE)
--- OUTSIDE RECORDS SUMMARY | 2020-09-16 19:23 | CCD ---
Author Author [facility] Organization [facility] Address Unknown Phone Unavailable Care Team Providers Care Raw Material Planner Name Role Phone Trevor Beckman MD Unavailable [...] Javi MD Unavailable Unavailable Shaben, E Katja HORSE RACE STARTER Unavailable Unavailable Shaben, E Katja HORSE RACE STARTER Unavailable Unavailable Shaben, E Katja HORSE RACE STARTER Unavailable Unavailable Shaben, E Katja HORSE RACE STARTER Unavailable Unavailable Shaben, E Katja HORSE RACE STARTER Unavailable Unavailable Shaben, E Katja HORSE RACE STARTER Unavailable Unavailable Shaben, E Katja HORSE RACE STARTER Unavailable Unavailable Shaben, E Katja HORSE RACE STARTER Unavailable Unavailable Shaben, E Katja HORSE RACE STARTER Unavailable Unavailable Shaben, E Katja HORSE RACE STARTER Unavailable Unavailable Shaben, E Katja HORSE RACE STARTER Unavailable Unavailable Shaben, E Katja HORSE RACE STARTER Unavailable Unavailable Shaben, E Katja HORSE RACE STARTER Unavailable Unavailable Shaben, E Katja HORSE RACE STARTER Unavailable Unavailable Shaben, E Katja HORSE RACE STARTER Unavailable Unavailable Shaben, E Katja HORSE RACE STARTER Unavailable Unavailable Shaben, E Katja HORSE RACE STARTER Unavailable Unavailable Shaben, E Katja HORSE RACE STARTER Unavailable Unavailable Shaben, E Katja HORSE RACE STARTER Unavailable Unavailable Shaben, E Katja HORSE RACE STARTER Unavailable Unavailable Shaben, E Katja HORSE RACE STARTER Unavailable Unavailable Shaben, E Katja HORSE RACE STARTER Unavailable Unavailable Shaben, E Katja HORSE RACE STARTER Unavailable Unavailable Shaben, E Katja HORSE RACE STARTER Unavailable Unavailable [place]agala, Jennifer V, JENNIFER Unavailable [...] PHYSICIAN ER Unavailable Unavailable Lon, L Shelyta HORSE RACE STARTER Unavailable Unavailable Lon, L Shelyta HORSE RACE STARTER Unavailable Unavailable Lon, L Shelyta HORSE RACE STARTER Unavailable Unavailable Lon, L Shelyta HORSE RACE STARTER Unavailable Unavailable Lon, L Shelyta HORSE RACE STARTER Unavailable Unavailable Lon, L Shelyta HORSE RACE STARTER Unavailable Unavailable Lon, L Shelyta HORSE RACE STARTER Unavailable Unavailable Lon, L Shelyta HORSE RACE STARTER Unavailable Unavailable Lon, L Shelyta HORSE RACE STARTER Unavailable Unavailable Lon, L Shelyta HORSE RACE STARTER Unavailable Unavailable Lon, L Shelyta HORSE RACE STARTER Unavailable Unavailable Lon, L Shelyta HORSE RACE STARTER Unavailable Unavailable Lon, L Shelyta HORSE RACE STARTER Unavailable Unavailable Lon, L Shelyta HORSE RACE STARTER Unavailable Unavailable Lon, L Shelyta HORSE RACE STARTER Unavailable Unavailable Lon, L Shelyta HORSE RACE STARTER Unavailable Unavailable Lon, L Shelyta HORSE RACE STARTER Unavailable Unavailable Lon, L Shelyta HORSE RACE STARTER Unavailable Unavailable Lon, L Shelyta HORSE RACE STARTER Unavailable Unavailable Lon, L Shelyta HORSE RACE STARTER Unavailable Unavailable Lon, L Shelyta HORSE RACE STARTER Unavailable Unavailable Lon, L Shelyta HORSE RACE STARTER Unavailable Unavailable Lon, L Shelyta HORSE RACE STARTER Unavailable Unavailable Lon, L Shelyta HORSE RACE STARTER Unavailable Unavailable Leonidas Ervin MD Unavailable Unavailable [...] Mikey RPA-C Unavailable Unavailable KAHLIL, L KATHLEEN QUALITATIVE RESEARCHER Unavailable Unavailable KAHLIL, L KATHLEEN QUALITATIVE RESEARCHER Unavailable Unavailable KAHLIL, L KATHLEEN QUALITATIVE RESEARCHER Unavailable Unavailable KAHLLI, L KATHLEEN QUALITATIVE RESEARCHER Unavailable Unavailable KAHLIL, L KATHLEEN QUALITATIVE RESEARCHER Unavailable Unavailable KAHLIL, L KATHLEEN QUALITATIVE RESEARCHER Unavailable Unavailable KAHLIL, L KATHLEEN QUALITATIVE RESEARCHER Unavailable Unavailable KAHLIL, L KATHLEEN QUALITATIVE RESEARCHER Unavailable Unavailable KAHLIL, L KATHLEEN QUALITATIVE RESEARCHER Unavailable Unavailable KAHLIL, L KATHLEEN QUALITATIVE RESEARCHER Unavailable Unavailable KAHLIL, L KATHLEEN QUALITATIVE RESEARCHER Unavailable Unavailable KAHLIL, L KATHLEEN QUALITATIVE RESEARCHER Unavailable Unavailable KAHLIL, L KATHLEEN QUALITATIVE RESEARCHER Unavailable Unavailable KAHLIL, L KATHLEEN QUALITATIVE RESEARCHER Unavailable Unavailable KAHLIL, L KATHLEEN QUALITATIVE RESEARCHER Unavailable Unavailable KAHLIL, L KATHLEEN QUALITATIVE RESEARCHER Unavailable Unavailable KAHLIL, L KATHLEEN QUALITATIVE RESEARCHER Unavailable Unavailable KAHLIL, L KATHLEEN QUALITATIVE RESEARCHER Unavailable Unavailable KAHLIL, L KATHLEEN QUALITATIVE RESEARCHER Unavailable Unavailable KAHLIL, L KATHLEEN QUALITATIVE RESEARCHER Unavailable Unavailable KAHLIL, L KATHLEEN QUALITATIVE RESEARCHER Unavailable Unavailable KAHLIL, L KATHLEEN QUALITATIVE RESEARCHER Unavailable Unavailable KAHLIL, L KATHLEEN QUALITATIVE RESEARCHER Unavailable Unavailable KAHLIL, L KATHLEEN QUALITATIVE RESEARCHER Unavailable Unavailable KAHLIL, L KATHLEEN QUALITATIVE RESEARCHER Unavailable Unavailable KAHLIL, L KATHLEEN QUALITATIVE RESEARCHER Unavailable Unavailable KAHLIL, L KATHLEEN QUALITATIVE RESEARCHER Unavailable Unavailable KAHLIL, L KATHLEEN QUALITATIVE RESEARCHER Unavailable Unavailable KAHLIL, L KATHLEEN QUALITATIVE RESEARCHER Unavailable Unavailable KAHLIL, L KATHLEEN QUALITATIVE RESEARCHER Unavailable Unavailable KAHLIL, L KATHLEEN QUALITATIVE RESEARCHER Unavailable Unavailable KAHLIL, L KATHLEEN QUALITATIVE RESEARCHER Unavailable Unavailable KAHLIL, L KATHLEEN QUALITATIVE RESEARCHER Unavailable Unavailable KAHLIL, L KATHLEEN QUALITATIVE RESEARCHER Unavailable Unavailable KAHLIL, L KATHLEEN QUALITATIVE RESEARCHER Unavailable Unavailable CELESTINA EDWARDS MD Unavailable Unavailable [...] RING, CELESTINA VALLEJO MD Unavailable Unavailable RING, CELESTNIA VALLEJO MD Unavailable Unavailable RING, CELESTINA VALLEJO [...] Pancho HURLEY MD Unavailable Unavailable ANTECOL, Pancho HULREY MD Unavailable Unavailable ANTECOL, Pancho HURLEY MD Unavailable Unavailable Jumalon, M Laverne HORSE RACE STARTER Unavailable Unavailable Jumalon, M Laverne HORSE RACE STARTER Unavailable Unavailable Jumalon, M Laverne HORSE RACE STARTER Unavailable Unavailable Jumalon, M Laverne HORSE RACE STARTER Unavailable Unavailable Jumalon, M Laverne HORSE RACE STARTER Unavailable Unavailable Jumalon, M Laverne HORSE RACE STARTER Unavailable Unavailable Jumalon, M Laverne HORSE RACE STARTER Unavailable Unavailable Jumalon, M Laverne HORSE RACE STARTER Unavailable Unavailable Jumalon, M Laverne HORSE RACE STARTER Unavailable Unavailable Jumalon, M Laverne HORSE RACE STARTER Unavailable Unavailable Jumalon, M Laverne HORSE RACE STARTER Unavailable Unavailable Jumalon, M Laverne HORSE RACE STARTER Unavailable Unavailable Jumalon, M Laverne HORSE RACE STARTER Unavailable Unavailable Jumalon, M Laverne HORSE RACE STARTER Unavailable Unavailable Jumalon, M Laverne HORSE RACE STARTER Unavailable Unavailable Jumalon, M Laverne HORSE RACE STARTER Unavailable Unavailable Jumalon, M Laverne HORSE RACE STARTER Unavailable Unavailable Jumalon, M Laverne HORSE RACE STARTER Unavailable Unavailable Jumalon, M Laverne HORSE RACE STARTER Unavailable Unavailable Jumalon, M Laverne HORSE RACE STARTER Unavailable Unavailable Jumalon, M Laverne HORSE RACE STARTER Unavailable Unavailable Jumalon, M Laverne HORSE RACE STARTER Unavailable Unavailable Jumalon, M Laverne HORSE RACE STARTER Unavailable Unavailable Jumalon, M Laverne HORSE RACE STARTER Unavailable Unavailable Jumalon, M Laverne HORSE RACE STARTER Unavailable Unavailable Jumalon, M Laverne HORSE RACE STARTER Unavailable Unavailable Jumalon, M Laverne HORSE RACE STARTER Unavailable Unavailable Jumalon, M Laverne HORSE RACE STARTER Unavailable Unavailable PHYSICIAN, ER Unavailable Unavailable GIA, KATJA PARKER QUALITATIVE RESEARCHER Unavailable Unavaila ble GIA, KATJA PARKER QUALITATIVE RESEARCHER Unavailable Unavaila ble GIA, KAJTA PARKER QUALITATIVE RESEARCHER Unavailable Unavaila ble SAEED-JENSEN, TARYN QUALITATIVE RESEARCHER Unavailable Unavaila ble SAEED-JENSEN, KATJA PARKER QUALITATIVE RESEARCHER Unavailable Unavaila ble SAEED-JENSEN, KATJA PARKER QUALITATIVE RESEARCHER Unavailable Unavaila ble SAEED-JENSEN, KATJA PARKER QUALITATIVE RESEARCHER Unavailable Unavaila ble SAEED-JENSEN, KATJA PARKER QUALITATIVE RESEARCHER Unavailable Unavaila ble SAEED-JENSEN, KATJA PARKER QUALITATIVE RESEARCHER Unavailable Unavaila ble SAEED-JENSEN, KATJA PARKER QUALITATIVE RESEARCHER Unavailable Unavaila ble SAEED-JENSEN, KATJA PARKER QUALITATIVE RESEARCHER Unavailable Unavaila ble SAEED-JENSEN, KATJA PARKER QUALITATIVE RESEARCHER Unavailable Unavaila ble SAEDE-JENSEN, KATJA PARKER QUALITATIVE RESEARCHER Unavailable Unavaila ble SAEED-JENSEN, KATJA PARKER QUALITATIVE RESEARCHER Unavailable Unavaila ble SAEED-JENSEN, KATJA PARKER QUALITATIVE RESEARCHER Unavailable Unavaila ble SAEED-JENSEN, KATJA PARKER QUALITATIVE RESEARCHER Unavailable Unavaila ble SAEED-JENSEN, KATJA PARKER QUALITATIVE RESEARCHER Unavailable Unavaila ble SAEED-JENSEN, KATJA PARKER QUALITATIVE RESEARCHER Unavailable Unavaila ble SAEED-JENSEN, KATJA PARKER QUALITATIVE RESEARCHER Unavailable Unavaila ble SAEED-JENSEN, KATJA PARKER QUALITATIVE RESEARCHER Unavailable Unavaila ble SAEED-JENSEN, KATJA PARKER QUALITATIVE RESEARCHER Unavailable Unavaila ble SAEED-JENSEN, KATJA PARKER QUALITATIVE RESEARCHER Unavailable Unavaila ble SAEED-JENSEN, KATJA PARKER QUALITATIVE RESEARCHER Unavailable Unavaila ble SAEED-JENSEN, KATJA PARKER QUALITATIVE RESEARCHER Unavailable Unavaila ble SAEED-JENSEN, KATJA PARKER QUALITATIVE RESEARCHER Unavailable Unavaila ble SAEED-JENSEN, KATJA PARKER QUALITATIVE RESEARCHER Unavailable Unavaila ble SAEED-JENSEN, KATJA PARKER QUALITATIVE RESEARCHER Unavailable Unavaila ble SAEED-JENSEN, KATJA PARKER QUALITATIVE RESEARCHER Unavailable Unavaila ble SAEED-JENSEN, KATJA PARKER QUALITATIVE RESEARCHER Unavailable Unavaila ble SAEED-JENSEN, KATJA PARKER QUALITATIVE RESEARCHER Unavailable Unavaila ble SAEED-JENSEN, KATJA PARKER QUALITATIVE RESEARCHER Unavailable Unavaila ble SAEED-JENSEN, KATJA PARKER QUALITATIVE RESEARCHER Unavailable Unavaila ble SAEED-JENSEN, KATJA PARKER QUALITATIVE RESEARCHER Unavailable Unavaila ble SAEED-JENSEN, KATJA PARKER QUALITATIVE RESEARCHER Unavailable Unavaila ble SAEED-JENSEN, KATJA PARKER QUALITATIVE RESEARCHER Unavailable Unavaila ble SAEED-JENSEN, KATJA PARKER QUALITATIVE RESEARCHER Unavailable Unavaila ble SAEED-JENSEN, TARYN QUALITATIVE RESEARCHER Unavailable Unavaila ble SAEED-JENSEN, TARYN QUALITATIVE RESEARCHER Unavailable Unavaila ble SAEED-JENSEN, TARYN QUALITATIVE RESEARCHER Unavailable Unavaila ble SAEED-JENSEN, TARYN QUALITATIVE RESEARCHER Unavailable Unavaila ble SAEED-JENSEN, TARYN QUALITATIVE RESEARCHER Unavailable Unavaila ble SAEED-JENSEN, TARYN QUALITATIVE RESEARCHER Unavailable Unavaila ble SAEED-JENSEN, TARYN QUALITATIVE RESEARCHER Unavailable Unavaila ble SAEED-JENSEN, TARYN QUALITATIVE RESEARCHER Unavailable Unavaila ble SAEED-JENSEN, TARYN QUALITATIVE RESEARCHER Unavailable Unavaila ble SAEED-JENSEN, TARYN QUALITATIVE RESEARCHER Unavailable Unavaila ble Becca GARLAND MD Unavailable [...] Unavailable Becca GARLAND MD Unavailable Unavailable Becca GALRAND MD Unavailable Unavailable Becca GARLAND MD Unavailable [...] RUBIA MD Unavailable Unavailable Shaben, E Katja HORSE RACE STARTER Unavailable Unavailable Shaben, E Katja HORSE RACE STARTER Unavailable Unavailable Shaben, E Katja HORSE RACE STARTER Unavailable Unavailable Shaben, E Katja HORSE RACE STARTER Unavailable Unavailable Shaben, E Katja HORSE RACE STARTER Unavailable Unavailable Shaben, E Katja HORSE RACE STARTER Unavailable Unavailable Shaben, E Katja HORSE RACE STARTER Unavailable Unavailable Shaben, E Katja HORSE RACE STARTER Unavailable Unavailable Shaben, E Katja HORSE RACE STARTER Unavailable Unavailable Shaben, E Katja HORSE RACE STARTER Unavailable Unavailable Shaben, E Katja HORSE RACE STARTER Unavailable Unavailable Shaben, E Katja HORSE RACE STARTER Unavailable Unavailable Shaben, E Katja HORSE RACE STARTER Unavailable Unavailable Shaben, E Katja HORSE RACE STARTER Unavailable Unavailable Shaben, E Katja HORSE RACE STARTER Unavailable Unavailable Shaben, E Katja HORSE RACE STARTER Unavailable Unavailable Shaben, E Katja HORSE RACE STARTER Unavailable Unavailable Shaben, E Katja HORSE RACE STARTER Unavailable Unavailable Shaben, E Katja HORSE RACE STARTER Unavailable Unavailable Shaben, E Katja HORSE RACE STARTER Unavailable Unavailable Shaben, E Katja HORSE RACE STARTER Unavailable Unavailable Shaben, E Katja HORSE RACE STARTER Unavailable Unavailable Shaben, E Katja HORSE RACE STARTER Unavailable Unavailable Shaben, E Katja HORSE RACE STARTER Unavailable Unavailable Re-disclosure Warning The records that [...] is protected by Article 27-F of the [facility] Public Health law. If you continue you may have access to information: Regarding HIV / AIDS; Provided by facilities licensed or operated by the [facility] Office of Mental Health; or Provided by the [facility] Office for People With Developmental Disabilities. If such information is present, then the following [facility] mandated warning applies: This information has been [...] law may result in a fine or group home sentence or both. A general authorization for the release of medical or other information is NOT sufficient authorization for further disc losure. Advance Directives Directive Description Rn Oncology Research Superintendent Pipelines Status Observation Descr iption Data Source(s) Ebola Screening Performed completed Ebol a Screening Performed [place] ([facility]) Note: Within the last month, have you tr aveled outside of the [place]? -NO packet given Pt Bill of Rights, Priv Prac, Ad Dir completed packet given Pt Bill of Rights, Priv Prac, Ad Dir [place] ([facility]) Note: Pt declined AD packet Ebola Screening Performed completed Ebol a Screening Performed [place] ([facility]) Note: Within the last month, have you tr aveled outside of the [place]? -NO Ebola Screening Performed completed Ebol a Screening Performed [place] ([facility]) Note: Within the last month, have you [...] Description Data Source(s) Unknown Female Problem MEDENT ([facility]) Encounters Encounter Providers Location Date Indications Data Source(s ) Outpatient Attender: DENNIS griffiths 08/04/2020 11:00:00 AM EST MEDENT ([facility]) Laverne [place], QUALITATIVE RESEARCHER: [address], [place] [address], Ph. Attender: aLverne Ho [facility] 07/28/2020 12:00:00 AM EST ATHE NA ([facility]) Lavernemoni Ho, QUALITATIVE RESEARCHER: [address], [place] [address], Ph. Attender: Laverne [place] [facility] 06/29/2020 12:00:00 AM EST ATHE NA ([facility]) Laverne Ho, QUALITATIVE RESEARCHER: [address], [place] [address], Ph. Attender: Laverne [place] [facility] 06/29/2020 12:00:00 AM EST ATHE NA ([facility]) Laverne Yeyo Ho, QUALITATIVE RESEARCHER: [address], [place] [address], Ph. Attender: Laverne Ho HORSE RACE STARTER [place] - [facility] 06/01/2020 12:00:00 AM EST ATHE NA ([facility]) Laverne Ho, QUALITATIVE RESEARCHER: [address], [place] [address], Ph. Attender: Laverne Ho [facility] - [facility] 06/01/2020 12:00:00 AM EST ATHE NA ([facility]) Laverne Ho, QUALITATIVE RESEARCHER: [address], [place] [address], Ph. Attender: Laverne Poojakaylaalex [facility] 06/01/2020 12:00:00 AM EST ATHE NA ([facility]) Outpatient Attender: Javi [facility] 05/31/2020 09:00:00 AM EST MEDENT ([facility]) Laverne Ho, QUALITATIVE RESEARCHER: [address], [place] [address], Ph. Attender: Laverne Ho [facility] 05/06/2020 12:00:00 AM EDT ATHE NA ([facility]) Laverne Ho, QUALITATIVE RESEARCHER: [address], [place] [address], Ph. Attender: Laverne Poojakaylaalex [facility] 05/06/2020 12:00:00 AM EDT ATHE NA ([facility]) Laverne Ho, QUALITATIVE RESEARCHER: [address], [place] [address], Ph. Attender: Laverne [place] [facility] 05/06/2020 12:00:00 AM EDT ATHE NA ([facility]) Laverne Ho, QUALITATIVE RESEARCHER: [address], [place] [address], Ph. Attender: Laverne Ho [facility] 05/06/2020 12:00:00 AM EDT ATHMoni RAE ([facility]) Outpatient<td ID="encounterTypeDescripti onID0">Chronic Disease Follow- up</td><td>Katja Mccall NP</td><td>[facility]</td><td>05/05/2020</td><td><content ID="encounterDiagnosisID0-0"> Diabetes Mellitus Type 2</content>, <content ID="encounterDiagnosisID0- 1">Essential Hypertension Benign</content>, <content ID="encounterDiagnosisID0- 2">Osteoarthritis Generalized</content>, <content ID="encounterDiagnosisID0- 3">Cirrhosis</content>, <content ID="encounterDiagnosisID0-4">Eustachian Tube</content></td> Attender: Katja Mccall [facility] 05/05/2020 11:08:00 AM EDT - 05/05/2020 12:04:36 PM EDT CirrhosisEustachian TubeDiabetes Mellitus Type 2Osteoarthritis GeneralizedEssential Hypertension Benign [place] ([facility]) Cirrhosis Eustachian Tube Diabetes Mellitus Type 2 Osteoarthritis Generalized Essential Hypertension Benign Laverne Ho, QUALITATIVE RESEARCHER: [address], [place] [address], Ph. Attender: Laverne [place] [facility] 03/29/2020 12:00:00 AM EDT SRIKANTH RAE ([facility]) Laverne Ho, QUALITATIVE RESEARCHER: [address], [place] [address], Ph. Attender: Laverne Ho [facility] 03/29/2020 12:00:00 AM EDT ATHE NA ([facility]) Laverne Ho, QUALITATIVE RESEARCHER: [address], [place] [address], Ph. Attender: Laverne Ho [facility] - [facility] 03/29/2020 12:00:00 AM EDT ATHMoni NA ([facility]) Laverne Ho, QUALITATIVE RESEARCHER: [address], [place] [address], Ph. Attender: Laverne Ho [facility] 03/29/2020 12:00:00 AM EDT ATHMoni RAE ([facility]) Laverne Ho, QUALITATIVE RESEARCHER: [address], [place] [address], Ph. Attender: Laverne Ho [facility] 03/29/2020 12:00:00 AM EDT ATHMoni RAE ([facility]) Unknown<td ID="encounterTypeDescriptionI D1">Correspondence</td><td>Katja Mccall NP</td><td></td><td>03/24/2020</td><td></td> Attender: Katja MIRZAP 03/24/2020 10:10:00 AM EDT - 03/24/2020 11:59:00 PM EDT LIB[place] ([facility]) Outpatient Attender: Katja CHAN 03/14/2020 10:54:00 A M EDT LAB 1 OF 1 [facility] LAB 1 OF 1 Laverne Ho, QUALITATIVE RESEARCHER: [address], [place] [address], Ph. Attender: Laverne Manzoalex [facility] 02/19/2020 12:00:00 AM EDT ATHE NA ([facility]) Laverne Ho, QUALITATIVE RESEARCHER: [address], [place] [address], Ph. Attender: Laverne Ho [facility] - [facility] - [facility] 02/19/2020 12:00:00 AM EDT ATHE NA ([facility]) Laverne Ho, QUALITATIVE RESEARCHER: [address], [place] [address], Ph. Attender: Laverne Ho [facility] - [facility] - [facility] 02/19/2020 12:00:00 AM EDT ATHE NA ([facility]) Laverne Ho, QUALITATIVE RESEARCHER: [address], [place] [address], Ph. Attender: Laverne Ho [facility] - [facility] 02/19/2020 12:00:00 AM EDT ATHE NA ([facility]) Laverne Ho, QUALITATIVE RESEARCHER: [address], [place] [address], Ph. Attender: Laverne Ho [facility] - [facility] 02/19/2020 12:00:00 AM EDT ATHE NA ([facility]) Laverne Ho, QUALITATIVE RESEARCHER: [address], [place] [address], Ph. Attender: Laverne Ho [facility] - [facility] 02/19/2020 12:00:00 AM EDT ATHE NA ([facility]) Obstetrics<td ID="encounterTypeDescripti onID2">Lab Order</td><td>Vera Shaben QUALITATIVE RESEARCHER</td><td></td><td>02/15/2020</td><td></td> Attender: Katja Mccall [facility] 02/15/2020 10:47:00 AM EDT - 02/15/2020 11:59:00 PM EDT [place] [facility]) Laverne Ho, QUALITATIVE RESEARCHER: [address], [place] [address], Ph. Attender: Laverne Ho [facility] - [facility] 01/21/2020 12:00:00 AM EDT ATHMoni NA ([facility]) Laverne Ho, QUALITATIVE RESEARCHER: [address], [place] [address], Ph. Attender: Laverne Ho [facility] 01/21/2020 12:00:00 AM EDT ATHE NA ([facility]) Laverne Ho, QUALITATIVE RESEARCHER: [address], [place] [address], Ph. Attender: Laverne Ho [facility] - [facility] 01/21/2020 12:00:00 AM EDT ATHE NA ([facility]) Laverne Ho, QUALITATIVE RESEARCHER: [address], [place] [address], Ph. Attender: Laverne Ho [facility] - [facility] 01/21/2020 12:00:00 AM EDT ATHMoni NA ([facility]) Laverne Ho, QUALITATIVE RESEARCHER: [address], [place] [address], Ph. Attender: Lavernemoni Ho [facility] - [facility] 01/21/2020 12:00:00 AM EDT ATHMoni RAE ([facility]) Laverne Ho, QUALITATIVE RESEARCHER: [address], [place] [address], Ph. Attender: Laverne Ho [facility] 01/21/2020 12:00:00 AM EDT ATHMoni NA ([facility]) Laverne Ho, QUALITATIVE RESEARCHER: [address], [place] [address], Ph. Attender: Laverne Ho [facility] - [facility] 01/21/2020 12:00:00 AM EDT ATHMoni RAE ([facility]) Unknown<td ID="encounterTypeDescriptionI D3">Standing Order</td><td>Katja Mccall NP</td><td></td><td>01/13/2020</td><td></td> Attender: Katja Mccall [facility] 01/13/2020 01:51:00 PM EDT - 01/13/2020 11:59:00 PM EDT [facility]) Laverne Ho, QUALITATIVE RESEARCHER: [address], [place] [address], Ph. Attender: Laverne [place] [facility] 12/10/2019 12:00:00 AM EDT ETHAN ([facility]) Laverne Ho, QUALITATIVE RESEARCHER: [address], [place] [address], Ph. Attender: Laverne Ho [facility] - [facility] 12/10/2019 12:00:00 AM EDT ETHAN ([facility]) Laverne Ho, QUALITATIVE RESEARCHER: [address], [place] [address], Ph. Attender: Laverne Ho [employer] [place] - [facility] 12/10/2019 12:00:00 AM EDT ETHAN ([facility]) Laverne Ho, QUALITATIVE RESEARCHER: [address], [place] [address], Ph. Attender: Laverne Ho [employer] [place] [facility] 12/10/2019 12:00:00 AM EDT ETHAN ([facility]) Laverne Ho, QUALITATIVE RESEARCHER: [address], [place] [address], Ph. Attender: Laverne Ho [employer] [place] - [facility] 12/10/2019 12:00:00 AM EDT ETHAN ([facility]) Laverne Ho, QUALITATIVE RESEARCHER: [address], [place] [address], Ph. Attender: Laverne Ho [facility] [employer] [place] - [facility] 12/10/2019 12:00:00 AM EDT ETHAN ([facility]) Laverne Ho, QUALITATIVE RESEARCHER: [address], [place] [address], Ph. Attender: Laverne Ho [facility] [employer] [place] - [facility] 12/10/2019 12:00:00 AM EDT ETHAN ([facility]) Laverne Ho, QUALITATIVE RESEARCHER: [address], [place] [address], Ph. Attender: Laverne Ho [employer] [place] - [facility] 12/10/2019 12:00:00 AM EDT ETHAN ([facility]) Outpatient Attender: XAVI BRADFORD MD Main Office 12/09/2019 10:45:00 AM EDT MEDENT ([facility]) Inpatient Attender: ER PHYSICIAN 12/04/2019 02:11:00 PM E DT [facility] ( in Healthcare facility) Attender: GENEVIEVE EDWARDS MDAdmitter: GENEVIEVE EDWARDS MD 12/04/2019 02:11:00 PM EDT [facility] Inpatient Attender: JENNIFER CRUZ MDA ttender: GENEVIEVE EDWARDS MDAttender: ER PHYSICIANAdmitter: GENEVIEVE EDWARDS MD 12/04/2019 10:17:55 AM EDT [facility] Inpatient Attender: Shae Castillo VAttender: GENEVIEVE EDWARDS MDAttender: ER PHYSICIANAdmitter: GENEVIEVE EDWARDS MD 12/04/2019 09:31:00 AM EDT - 12/07/2019 02:15:00 PM EDT ASCIES VOLUME OVERLOAD CIRRHOSIS [facility] ASCIES VOLUME OVERLOAD CIRRHOSIS Patient discharged. Outpatient<td ID="encounterTypeDescripti onID4">Telephone Encounter</td><td>Kathleen Guillory NP</td><td></td><td>12/03/2019</td><td><content ID="encounterDiagnosisID4-0">Ascites</content>, <content ID="encounterDiagnosisID4-1">Cirrhosis</content></td> Attender: KATHLEEN GUILLORY NP 12/03/2019 03:03:00 PM EDT - 12/03/2019 11:59:00 PM EDT CirrhosisAscitesCirrhosisAscites [place] ([facility]) Cirrhosis Ascites Cirrhosis Ascites Outpatient Referrer: Katja CHAN 12/02/2019 12:24:00 P M EDT [facility] Outpatient Referrer: Katja CHAN 12/02/2019 12:12:00 P M EDT [facility] Outpatient Referrer: Katja CHAN 12/01/2019 04:07:00 P M EDT [facility] Attender: Katja CHAN 12/01/2019 03:0 0:00 PM EDT ascites of liver r10.9 [facility] ascites of liver r10.9 Outpatient Referrer: Katja Mccall [facility] 12/01/2019 02:43:00 P M EDT [facility] Unknown<td ID="encounterTypeDescriptionI D5">Referral Order</td><td>Katja Mccall NP</td><td></td><td>12/01/2019</td><td></td> Attender: Katja Mccall [facility] 12/01/2019 02:11:00 PM EDT - 12/01/2019 11:59:00 PM EDT [facility]) Outpatient Referrer: Katja MIRZAP 12/01/2019 02:04:00 P M EDT [facility] Outpatient Referrer: Katja Mccall [facility] 12/01/2019 01:59:00 P M EDT [facility] Outpatient Referrer: KATJA NIELSEN NP 0 12/01/2019 01:56:00 PM EDT [facility] Unknown<td ID="encounterTypeDescriptionI D6">Referral Order</td><td>Katja Mccall NP</td><td></td><td>12/01/2019</td><td></td> Attender: Katja MIRZAP 12/01/2019 12:31:00 PM EDT - 12/01/2019 11:59:00 PM EDT [facility]) Outpatient<td ID="encounterTypeDescripti onID7">Acute L3</td><td>Katja Mccall NP</td><td>[facility]</td><td>12/01/2019</td><td><content ID="encounterDiagnosisID7-0">Diabetes Mellitus Type 2</content>, <content ID="encounterDiagnosisID7-1">Essential Hypertension Benign</content>, <content ID="encounterDiagnosisID7-2">Edema</content>, <content ID="encounterDiagnosisID7-3">Abdominal Pain</content></td> [facility] 12/01/2019 11:10:00 AM EDT - 12/01/2019 12:33:01 PM EDT Abdominal PainEdemaAbdominal PainEdemaAbdominal PainEdemaDiabetes Mellitus Type 2Diabetes Mellitus Type 2Diabetes Mellitus Type 2Essential Hypertension BenignEssential Hypertension BenignEssential Hypertension Benign [place] ([facility]) Abdominal Pain Edema Abdominal Pain Edema Abdominal Pain Edema Diabetes Mellitus Type 2 Diabetes Mellitus Type 2 Diabetes Mellitus Type 2 Essential Hypertension Benign Essential Hypertension Benign Essential Hypertension Benign Laverne Ho, QUALITATIVE RESEARCHER: [address], [place] [address], Ph. Attender: Laverne Ho [facility] - [facility] 11/12/2019 12:00:00 AM EDT ETHAN ([facility]) Laverne Ho, QUALITATIVE RESEARCHER: [address], [place] [address], Ph. Attender: Lavernemoni Ho [facility] - [facility] 11/12/2019 12:00:00 AM EDT ETHAN ([facility]) Laverne Ho, QUALITATIVE RESEARCHER: [address], [place] [address], Ph. Attender: Laverne Ho [facility] - [facility] 11/12/2019 12:00:00 AM EDT ETHAN ([facility]) Laverne Ho, QUALITATIVE RESEARCHER: [address], [place] [address], Ph. Attender: Laverne Ho [facility] [place] - [facility] 11/12/2019 12:00:00 AM EDT ETHAN ([facility]) Laverne Ho, QUALITATIVE RESEARCHER: [address], [place] [address], Ph. Attender: Lavernemoni Ho [facility] [place] - [facility] 11/12/2019 12:00:00 AM EDT ETHAN ([facility]) Laverne Ho, QUALITATIVE RESEARCHER: [address], [place] [address], Ph. Attender: Laverne Ho [employer] - [facility] 11/12/2019 12:00:00 AM EDT ETHAN ([facility]) Laverne Ho, QUALITATIVE RESEARCHER: [address], [place] [address], Ph. Attender: [facility] 11/12/2019 12:00:00 AM EDT ETHAN ([facility]) Laverne Ho, QUALITATIVE RESEARCHER: [address], [place] [address], Ph. Attender: [facility] 11/12/2019 12:00:00 AM EDT ETHAN ([facility]) Laverne Ho, QUALITATIVE RESEARCHER: [address], [place] [address], Ph. Attender: [facility] 11/12/2019 12:00:00 AM EDT ETHAN ([facility]) Unknown<td ID="encounterTypeDescriptionI D8">[Patient Encounter]</td><td>Katja Mccall NP</td><td>[facility]</td><td>10/26/2019</td><td></td> Attender: Katja Mccall [facility] 10/26/2019 11:39:00 AM EDT - 10/26/2019 11:59:00 PM EDT [facility]) Laverne Ho, QUALITATIVE RESEARCHER: [address], [address], [place] [address], Ph. Attender: Laverne Ho [facility] - [facility] 10/15/2019 12:00:00 AM EDT ATHE NA ([facility]) Laverne Ho, QUALITATIVE RESEARCHER: [address], [address], [place] [address], Ph. Attender: Laverne Ho [facility] - [facility] 10/15/2019 12:00:00 AM EDT ATHE NA ([facility]) Laverne Ho, QUALITATIVE RESEARCHER: [address], [place] [address], Ph. Attender: Laverne Ho [facility] - [facility] 10/15/2019 12:00:00 AM EDT ATHE NA ([facility]) Laverne Ho, QUALITATIVE RESEARCHER: [address], [address], [place] [address], Ph. Attender: Laverne Ho [facility] - [facility] 10/15/2019 12:00:00 AM EDT ATHE NA ([facility]) Laverne Ho, QUALITATIVE RESEARCHER: [address], [address], [place] [address], Ph. Attender: Laverne Ho [facility] - [facility] 10/15/2019 12:00:00 AM EDT ATHE NA ([facility]) Laverne Ho, QUALITATIVE RESEARCHER: [address], [address], [place] [address], Ph. Attender: Lavernemoni Ho [facility] - [facility] 10/15/2019 12:00:00 AM EDT ATHE NA ([facility]) Laverne Ho, QUALITATIVE RESEARCHER: [address], [place] [address], Ph. Attender: Laverne Ho [facility] - [facility] 10/15/2019 12:00:00 AM EDT ATHE NA ([facility]) Laverne Ho, QUALITATIVE RESEARCHER: [address], [address], [place] [address], Ph. Attender: Laverne Ho [facility] - [facility] 10/15/2019 12:00:00 AM EDT ATHoMni NA ([facility]) Laverne Ho, QUALITATIVE RESEARCHER: [address], [place] [address], Ph. Attender: Laverne Ho [facility] - [facility] 10/15/2019 12:00:00 AM EDT ATHMoni NA ([facility]) Laverne Ho, QUALITATIVE RESEARCHER: [address], [place] [address], Ph. Attender: Laverne Ho [facility] - [facility] 10/15/2019 12:00:00 AM EDT ATHE NA ([facility]) Unknown<td ID="encounterTypeDescriptionI D9">[Patient Encounter]</td><td>Katja Mccall QUALITATIVE RESEARCHER</td><td></td><td>10/14/2019</td><td></td> Attender: Katja Mccall [employer] 10/14/2019 02:18:00 PM EDT - 10/14/2019 11:59:00 PM EDT [facility]) Outpatient<td ID="encounterTypeDescripti onID10">Establish Care</td><td>Katja Mccall QUALITATIVE RESEARCHER</td><td>[facility]</td><td>10/08/2019</td><td><content ID="[id number]">Diabetes Mellitus Type 2</content>, <content ID="[id number]">Essential Hypertension Benign</content>, <content ID="[id number]">Osteoarthritis Generalized</content></td> Attender: Katja Mccall [facility] 10/08/2019 09:53:00 AM EDT - 10/08/2019 [...] Osteoarthritis Generalized Essential Hypertension Benign Laverne Ho, QUALITATIVE RESEARCHER: [address], [place] [address], Ph. Attender: Laverne Ho [facility] 10/07/2019 12:00:00 AM EDT SRIKANTH RAE ([facility]) Laverne Orona Jovanyalex, QUALITATIVE RESEARCHER: [address], [facility] [place] [address], Ph. Attender: Laverne Ho [facility] 10/07/2019 12:00:00 AM EDT SRIKANTH RAE ([facility]) Laverne Ho, QUALITATIVE RESEARCHER: [address], [place] [address], Ph. Attender: Laverne Manzoon [employer] [place] - [facility] 10/07/2019 12:00:00 AM EDT ATHE NA ([facility]) Laverne Ho, QUALITATIVE RESEARCHER: [address], [address], [place] [address], Ph. Attender: Laverne Ho [facility] - [facility] 10/07/2019 12:00:00 AM EDT ATHE NA ([facility]) Laverne Ho, QUALITATIVE RESEARCHER: [address], [address], [place] [address], Ph. Attender: Laverne Ho [facility] - [facility] 10/07/2019 12:00:00 AM EDT ATHE NA ([facility]) Laverne Ho, QUALITATIVE RESEARCHER: [address], [address], [place] [address], Ph. Attender: Laverne Ho [facility] - [facility] 10/07/2019 12:00:00 AM EDT ATHE NA ([facility]) Laverne Ho, QUALITATIVE RESEARCHER: [address], [address], [place] [address], Ph. Attender: Lavernemoni Manzoalex [facility] - [facility] 10/07/2019 12:00:00 AM EDT ATHE NA ([facility]) Laverne Ho, QUALITATIVE RESEARCHER: [address], [address], [place] [address], Ph. Attender: Laverne Ho [facility] - [facility] 10/07/2019 12:00:00 AM EDT ATHE NA ([facility]) Laverne Oron[place], QUALITATIVE RESEARCHER: [address], [address], [place] [address], Ph. Attender: Laverne Ho [facility] 10/07/2019 12:00:00 AM EDT ATHE NA ([facility]) Laverne Ho, QUALITATIVE RESEARCHER: [address], [place] [address], Ph. Attender: Laverne Ho [facility] 10/07/2019 12:00:00 AM EDT ATHE NA ([facility]) Laverne Ho, QUALITATIVE RESEARCHER: [address], [place] [address], Ph. Attender: Laverne Ho [facility] 10/07/2019 12:00:00 AM EDT ATHE NA ([facility]) Recurring Patient Referrer: Slava Ervin MD 09/23/2019 11:3 8:54 AM [facility] Outpatient Attender: Jeferson Story MD [facility] Internal Med at [facility] 09/21/2019 11:20:00 AM EST MEDENT ([facility]) Outpatient Attender: Mikey Burks IIReferrer: Slava Ervin MD 09/16/2019 07:29:42 AM [facility] Recurring Patient Referrer: Slava rEvin MD 09/15/2019 02:5 0:51 PM [facility] Outpatient<td ID="encounterTypeDescripti onID11">Walk-In</td><td>Kathleen Guillory NP</td><td>[facility]</td><td>09/07/2019</td><td><content ID="[id number]">Idiopathic Peripheral Neuropathy</content>, <content ID="[id number]">Chronic Pain</content>, <content ID="dntbiqckiBtlpzqtypQF62-6">Essential Hypertension Benign</content>, <content ID="qprlqzdafGyfqbfmoqWX24-7">Opioid Withdrawal</content></td> Attender: KATHLEEN GUILLORY QUALITATIVE RESEARCHER [facility] 09/07/2019 01:23:00 PM EST - 09/07/2019 02:38:09 [...] Slava Ervin MD 09/03/2019 01:04:59 PM EST [facility] Recurring Patient Attender: RUBIA GARLAND MDReferrer: Slava Ervin MD 08/25/2019 03:57:48 PM EST [facility] Immunizations Vaccine Date Status [...] 08/04/2020 12:00:00 AM EST ORAL active MEDENT ([facility] 4-240 mg 07/12/2020 12:00:00 AM EST tablet, [...] 05/31/2020 12:00:00 AM EST ORAL active MEDENT ([facility]) Spironolactone 50 MG Oral Tablet Spironolactone 05/31/2020 12:00:00 A M EST ORAL active MEDENT ([facility]) Hydrochlorothiazide 12.5 MG Oral Tablet hydroCHLOROthi azide 12.5 MG Oral Tablet hydroCHLOROthiazide 12.5 MG Oral Tablet 05/05/2020 12:00:00 AM EDT active hydrochlorothiazide 12.5 MG Oral Tablet [facility] 24 HR trandolapril 4 MG / Verapamil hydr ochloride 240 MG Extended Release Oral Tablet [Tarka] Tarka 4-240 MG Oral Tablet Extended Release Tarka 4-240 MG Oral Tablet Extended Release 05/05/2020 12:00:00 AM EDT 1 active 24 HR trandolapril 4 MG / verapamil hydrochloride 240 MG Extended Release Oral Tablet [Tarka] [facility] tizanidine 4 MG Oral Tablet tiZANidine HCl 4 MG Oral T ablet tiZANidine HCl 4 MG Oral Tablet 04/29/2020 12:00:00 AM EDT 1 active tizanidine 4 MG Oral Tablet [facility] 12 HR Oxycodone Hydrochloride 10 MG Exte nded Release Oral Tablet [Oxycontin] OxyCONTIN 10 MG Oral Tablet ER 12 Hour Abuse-Deterrent OxyCONTIN 10 MG Oral Tablet ER 12 Hour Abuse-Deterrent 04/09/2020 12:00:00 AM EDT active Abuse-Deterrent 12 HR oxycodone hydrochl oride 10 MG Extended Release Oral Tablet [Oxycontin] [facility] ([facility] Methadone Hydrochloride 10 MG Oral Tablet Methadone HCL 12/08/2019 12:00:00 AM EDT ORAL active [facility]ENT ([facility] 24 HR trandolapril 4 MG / Verapamil hydr ochloride 240 MG Extended Release Oral Tablet [Tarka] Tarka 12/08/2019 12:00:00 AM EDT ORAL co mpleted MEDENT ([facility]) [place]-3 Acid Ethyl Esters (SHELTER) 1000 MG Oral Capsule Fish Oi l 12/08/2019 12:00:00 AM EDT ORAL completed MEDENT ([facility]) duloxetine 30 MG Delayed Release Oral Capsule Duloxetine HCL 12/08/2019 12:00:00 AM EDT ORAL completed MEDENT ([facility]) Hydrochlorothiazide 12.5 MG Oral Capsule Hydrochlorothiazide 12/08/2019 12:00:00 AM EDT ORAL completed MEDENT ([facility]) Aspirin 81 MG Delayed Release Oral Tablet Aspirin 81 2019 12:00:00 AM EDT ORAL completed MEDENT ([facility]) glimepiride 2 MG Oral Tablet Glimepiride 12/01/2019 12:00:00 AM EDT ORAL completed MEDENT ([facility]) Methadone Hydrochloride 10 MG Oral [...] 09/21/2019 12:00:00 AM EST ORAL active MEDENT ([facility]) Amitriptyline Hydrochloride 25 MG Oral Tablet AMITRIPTYLINE HCL 09/16/2019 12:00:00 AM EST tablet 120 TAKE FOUR TABLETS BY MOUT H AT BEDTIME TAKE FOUR TABLETS BY MOUTH AT BEDTIME SOLD: 09/22/2019 [facility] Clonidine Hydrochloride 0.1 MG Oral Tablet [...] TABLETS BY MOUTH AT BEDTIME SOLD: 09/02/2019 [facility] 5 mg 08/31/2019 12:00:00 AM EST [...] 15 MG Extended Release Oral Tablet [place]ED[place] ([facility]) 24 HR trandolapril 4 MG / Verapamil hydr ochloride 240 MG Extended Release Oral Tablet [Tarka] Tarka 4-240MG Oral Tablet Extended Release Tarka 4-240MG Oral Tablet Extended Release 01/15/2019 12:00:00 AM EDT 1 aborted 24 HR trandolapril 4 MG / verapamil hydrochloride 240 MG Extended Release Oral Tablet [Tarka] [place] ([facility]) Hydrochlorothiazide 12.5 MG Oral Tablet hydroCHLOROthi azide 12.5MG Oral Tablet hydroCHLOROthiazide 12.5MG Oral Tablet 01/15/2019 12:00:00 AM EDT aborted hydrochlorothiazide 12.5 MG Oral Tablet [place] ([facility]) Mupirocin 0.02 MG/MG Topical Ointment Mupirocin 2% Ext ernal Ointment Mupirocin 2% External Ointment 01/14/2019 12:00:00 AM EDT 1 aborted mupirocin 0.02 MG/MG Topical Ointment [place] ([facility]) Methadone Hydrochloride 10 MG Oral Tablet Methadone HC l 10MG Oral Tablet Methadone HCl 10MG Oral Tablet 10/31/2018 12:00:00 AM EDT aborted methadone hydrochloride 10 MG Oral Tablet [facility] ([facility] Capsaicin 0.25 MG/ML Topical Cream Capsaicin 0.025% Ex ternal Cream Capsaicin 0.025% External Cream 10/01/2018 12:00:00 AM EST 1 aborted capsaicin 0.25 MG/ML Topical Cream [place] ([facility]) 24 HR Metformin hydrochloride 500 MG Ext ended Release Oral Tablet metFORMIN HCl ER 500MG Oral Tablet Extended Release 24 Hour metFORMIN HCl ER 500MG Oral Tablet Extended Release 24 Hour 10/01/2018 12:00:00 AM EST 2 aborted 24 HR metformin hydrochloride 500 MG Extended Release Oral Tablet [place] ([facility]) Fish Oil 1000 MG OR CAPS Fish Oil 1000 MG OR CAPS 02/09/2011 12:00: 00 AM EDT aborted Fish Oil [place] ([facility]) Diazepam 5 MG Oral Tablet diazepam 5 mg tablet diazepam 5 mg tablet completed diazepam 5 MG Oral Tablet ETHAN ([facility]) 12 HR Oxycodone Hydrochloride 10 MG Exte nded Release Oral Tablet [Oxycontin] OxyContin 10 mg tablet,crush resistant,extended release OxyContin 10 mg tablet,crush resistant,extended release completed Abuse- Deterrent 12 HR oxycodone hydrochloride 10 MG Extended Release Oral Tablet [Oxycontin] ETHAN ([facility]) Diazepam 5 MG Oral Tablet diazepam 5 mg tablet diazepam 5 mg tablet completed diazepam 5 MG Oral Tablet ETHAN ([facility]) Methadone Hydrochloride 10 MG Oral Table t methadone 10 mg tablet TAKE ONE TABLET BY MOUTH TWICE A DAY MAXIMUM DAILY DOSE 2 TABLETS methadone 10 mg tablet TAKE ONE TABLET BY MOUTH TWICE A DAY MAXIMUM DAILY DOSE 2 TABLETS completed methadone hydrochloride 10 MG Or al Tablet ETHAN ([facility]) 168 HR Buprenorphine 0.005 MG/HR Transde rmal Patch buprenorphine 5 mcg/hour weekly transdermal patch buprenorphine 5 mcg/hour weekly transdermal patch completed 168 HR Buprenorphine 0 .005 MG/HR Transdermal System ETHAN ([facility]) Methadone Hydrochloride 5 MG Oral Tablet methadone 5 mg tablet TAKE ONE TABLET BY MOUTH THREE TIMES A DAY MAXIMUM DAILY DOSE 3 methadone 5 mg tablet TAKE ONE TABLET BY MOUTH THREE TIMES A DAY MAXIMUM DAILY DOSE 3 completed methadone hydrochloride 5 MG Oral Tablet ETHAN ([facility]) doxycycline hyclate 100 MG Oral Capsule doxycycline hyclate 100 mg capsule TAKE ONE CAPSULE BY MOUTH TWICE A DAY doxycycline hyclate 100 mg capsule TAKE ONE CAPSULE BY MOUTH TWICE A DAY completed doxycycline hyclate 100 MG Oral Capsule ETHAN ([facility]) Diazepam 5 MG Oral Tablet diazepam 5 mg tablet diazepam 5 mg tablet completed diazepam 5 MG Oral Tablet ETHAN ([facility]) Diazepam 5 MG Oral Tablet diazepam 5 mg tablet diazepam 5 mg tablet completed Diazepam 5 MG Oral Tablet ETHAN ([facility]) duloxetine 30 MG Delayed Release Oral Ca psule duloxetine 30 mg capsule,delayed release TAKE 1 CAPSULE BY MOUTH EVERY DAY FOR 2 WEEKS THEN 2 EVERY DAY duloxetine 30 mg capsule,delayed release TAKE 1 CAPSULE BY MOUTH EVERY DAY FOR 2 WEEKS THEN 2 EVERY DAY completed duloxetine 30 MG Delayed Release Oral Capsule ETHAN ([facility]) Amitriptyline Hydrochloride 25 MG Oral T ablet amitriptyline 25 mg tablet 1-2 tabs at bedtime amitriptyline 25 mg tablet 1-2 tabs at bedtime completed Amitriptyline Hydrochloride 25 M G Oral Tablet ETHAN ([facility]) 168 HR Buprenorphine 0.005 MG/HR Transde rmal Patch buprenorphine 5 mcg/hour weekly transdermal patch buprenorphine 5 mcg/hour weekly transdermal patch completed 168 HR buprenorphine 0 .005 MG/HR Transdermal System ETHAN ([facility]) Aspirin 81 MG Chewable Tablet aspirin 81 mg chewable tablet Chew 1 tablet every day by oral route. aspirin 81 mg chewable tablet Chew 1 tab let every day by oral route. 1 completed aspirin 81 MG Chewable Tablet ETHAN ([facility]) Diazepam 5 MG Oral Tablet diazepam 5 mg tablet diazepam 5 mg tablet completed Diazepam 5 MG Oral Tablet ETHAN ([facility]) Diazepam 5 MG Oral Tablet diazepam 5 mg tablet diazepam 5 mg tablet completed diazepam 5 MG Oral Tablet ETHAN ([facility]) Methadone Hydrochloride 10 MG Oral Table t methadone 10 mg tablet TAKE ONE TABLET BY MOUTH TWICE A DAY MAXIMUM DAILY DOSE 2 TABLETS methadone 10 mg tablet TAKE ONE TABLET BY MOUTH TWICE A DAY MAXIMUM DAILY DOSE 2 TABLETS completed methadone hydrochloride 10 MG Or al Tablet ETHAN ([facility]) Diazepam 5 MG Oral Tablet diazepam 5 mg tablet diazepam 5 mg tablet completed diazepam 5 MG Oral Tablet ETHAN ([facility]) doxycycline hyclate 100 MG Oral Capsule doxycycline hyclate 100 mg capsule TAKE ONE CAPSULE BY MOUTH TWICE A DAY doxycycline hyclate 100 mg capsule TAKE ONE CAPSULE BY MOUTH TWICE A DAY completed doxycycline hyclate 100 MG Oral Capsule ETHAN ([facility]) Amitriptyline Hydrochloride 25 MG Oral T ablet amitriptyline 25 mg tablet 1-2 tabs at bedtime amitriptyline 25 mg tablet 1-2 tabs at bedtime completed Amitriptyline Hydrochloride 25 M G Oral Tablet ETHAN ([facility]) Amitriptyline Hydrochloride 25 MG Oral T ablet amitriptyline 25 mg tablet 1-2 tabs at bedtime amitriptyline 25 mg tablet 1-2 tabs at bedtime completed Amitriptyline Hydrochloride 25 M G Oral Tablet ETHAN ([facility]) Methadone Hydrochloride 10 MG Oral Table t methadone 10 mg tablet TAKE ONE TABLET BY MOUTH TWICE A DAY MAXIMUM DAILY DOSE 2 TABLETS methadone 10 mg tablet TAKE ONE TABLET BY MOUTH TWICE A DAY MAXIMUM DAILY DOSE 2 TABLETS completed methadone hydrochloride 10 MG Or al Tablet ETHAN ([facility]) Morphine Sulfate 15 MG Extended Release Oral Tablet morphine ER 15 mg tablet,extended release TAKE ONE TABLET BY MOUTH EVERY 12 HOURS MAXIMUM DAILY DOSE 2 morphine ER 15 mg tablet,extended releas e TAKE ONE TABLET BY MOUTH EVERY 12 HOURS MAXIMUM DAILY DOSE 2 completed morphine sulfate 15 MG Extended Release Oral Tablet ETHAN ([facility]) Methadone Hydrochloride 5 MG Oral Tablet methadone 5 mg tablet TAKE ONE TABLET BY MOUTH THREE TIMES A DAY MAXIMUM DAILY DOSE 3 methadone 5 mg tablet TAKE ONE TABLET BY MOUTH THREE TIMES A DAY MAXIMUM DAILY DOSE 3 completed methadone hydrochloride 5 MG Oral Tablet ETHAN ([facility]) Methadone Hydrochloride 5 MG Oral Tablet methadone 5 mg tablet TAKE ONE TABLET BY MOUTH THREE TIMES A DAY MAXIMUM DAILY DOSE 3 methadone 5 mg tablet TAKE ONE TABLET BY MOUTH THREE TIMES A DAY MAXIMUM DAILY DOSE 3 completed methadone hydrochloride 5 MG Oral Tablet ETHAN ([facility]) Diazepam 5 MG Oral Tablet diazepam 5 mg tablet diazepam 5 mg tablet completed Diazepam 5 MG Oral Tablet ETHAN ([facility]) duloxetine 30 MG Delayed Release Oral Ca psule duloxetine 30 mg capsule,delayed release TAKE 1 CAPSULE BY MOUTH EVERY DAY FOR 2 WEEKS THEN 2 EVERY DAY duloxetine 30 mg capsule,delayed release TAKE 1 CAPSULE BY MOUTH EVERY DAY FOR 2 WEEKS THEN 2 EVERY DAY completed duloxetine 30 MG Delayed Release Oral Capsule ETHAN ([facility]) Spironolactone 100 MG Oral Tablet spironolactone 100 m g tablet spironolactone 100 mg tablet completed spironol actone 100 MG Oral Tablet ETHAN ([facility]) Methadone Hydrochloride 10 MG Oral Table t methadone 10 mg tablet TAKE ONE TABLET BY MOUTH TWICE A DAY MAXIMUM DAILY DOSE 2 TABLETS methadone 10 mg tablet TAKE ONE TABLET BY MOUTH TWICE A DAY MAXIMUM DAILY DOSE 2 TABLETS completed methadone hydrochloride 10 MG Or al Tablet ETHAN ([facility]) 12 HR Oxycodone Hydrochloride 10 MG Exte nded Release Oral Tablet [Oxycontin] OxyContin 10 mg tablet,crush resistant,extended release OxyContin 10 mg tablet,crush resistant,extended release completed Abuse- Deterrent 12 HR oxycodone hydrochloride 10 MG Extended Release Oral Tablet [Oxycontin] ETHAN ([facility]) glimepiride 2 MG Oral Tablet glimepiride 2 mg tablet o ne tablet daily with food glimepiride 2 mg tablet one tablet daily with food completed glimepiride 2 MG Oral Tablet ETHAN ([facility]) Aspirin 81 MG Chewable Tablet aspirin 81 mg chewable tablet Chew 1 tablet every day by oral route. aspirin 81 mg chewable tablet Chew 1 tab let every day by oral route. 1 completed aspirin 81 MG Chewable Tablet ETHAN ([facility]) Spironolactone 100 MG Oral Tablet spironolactone 100 m g tablet spironolactone 100 mg tablet completed spironol actone 100 MG Oral Tablet ETHAN ([facility]) 24 HR trandolapril 4 MG / Verapamil hydr ochloride 240 MG Extended Release Oral Tablet trandolapril 4 mg-verapamil ER 240 mg tablet,immed-exten release 24 hr trandolapril 4 mg-verapamil ER 240 mg tablet,immed-exten release 24 hr completed 24 HR trandolap ril 4 MG / verapamil hydrochloride 240 MG Extended Release Oral Tablet ETHAN ([facility]) Methadone Hydrochloride 10 MG Oral Table t methadone 10 mg tablet TAKE ONE TABLET BY MOUTH TWICE A DAY MAXIMUM DAILY DOSE 2 TABLETS methadone 10 mg tablet TAKE ONE TABLET BY MOUTH TWICE A DAY MAXIMUM DAILY DOSE 2 TABLETS completed methadone hydrochloride 10 MG Or al Tablet ETHAN ([facility]) Diazepam 5 MG Oral Tablet diazepam 5 mg tablet diazepam 5 mg tablet completed diazepam 5 MG Oral Tablet ETHAN ([facility]) Diazepam 5 MG Oral Tablet diazepam 5 mg tablet diazepam 5 mg tablet completed diazepam 5 MG Oral Tablet ETHAN ([facility]) Diazepam 5 MG Oral Tablet diazepam 5 mg tablet diazepam 5 mg tablet completed diazepam 5 MG Oral Tablet ETHAN ([facility]) glimepiride 2 MG Oral Tablet glimepiride 2 mg tablet o ne tablet daily with food glimepiride 2 mg tablet one tablet daily with food completed glimepiride 2 MG Oral Tablet ETHAN ([facility]) Methadone Hydrochloride 5 MG Oral Tablet methadone 5 mg tablet TAKE ONE TABLET BY MOUTH THREE TIMES A DAY MAXIMUM DAILY DOSE 3 methadone 5 mg tablet TAKE ONE TABLET BY MOUTH THREE TIMES A DAY MAXIMUM DAILY DOSE 3 completed methadone hydrochloride 5 MG Oral Tablet ETHAN ([facility]) Methadone Hydrochloride 5 MG Oral Tablet methadone 5 mg tablet TAKE ONE TABLET BY MOUTH THREE TIMES A DAY MAXIMUM DAILY DOSE 3 methadone 5 mg tablet TAKE ONE TABLET BY MOUTH THREE TIMES A DAY MAXIMUM DAILY DOSE 3 completed methadone hydrochloride 5 MG Oral Tablet ETHAN ([facility]) Amitriptyline Hydrochloride 25 MG Oral T ablet amitriptyline 25 mg tablet 1-2 tabs at bedtime amitriptyline 25 mg tablet 1-2 tabs at bedtime completed amitriptyline hydrochloride 25 M G Oral Tablet ETHAN ([facility]) Morphine Sulfate 15 MG Extended Release Oral Tablet morphine ER 15 mg tablet,extended release TAKE ONE TABLET BY MOUTH EVERY 12 HOURS MAXIMUM DAILY DOSE 2 morphine ER 15 mg tablet,extended releas e TAKE ONE TABLET BY MOUTH EVERY 12 HOURS MAXIMUM DAILY DOSE 2 completed morphine sulfate 15 MG Extended Release Oral Tablet ETHAN ([facility]) Insurance Providers Payer name Policy type / Coverage type Policy ID Covered green party ID Covered green party's relationship to romero Policy Romero Plan Information [facility] [id number] SP [id number] [facility] [id number] SP [id number] [facility] O [id number] S [id number] [facility] [id number] SP [id number] [facility] [id number] SP [id number] MEDICARE [id number] SP [id number] [facility] GOLD [id number] SP [id number] MEDICARE [id number] SP [id number] [facility] Health Plan [facility] Other 0 Self 0 [facility] O [id number] S [id number] SELF PAY [facility] GOLD MEDICARE ADV [id number] SP [id number] MEDICARE AIDA [id number] S [id number] [facility] [id number] S [id number] [facility] [place] Other 0 Self 0 [facility] [place] Other 0 Self 0 SELF PAY MVP GOLD MEDICARE ADV [id number] SP [id number] [facility] [place] Other 0 Self 0 [facility] Healthcare F [id number] SELF [id number] [facility] [place] Other 0 Self 0 DME Jurisdiction A NHIC C [id number] SELF [id number] Medicare C [id number] SELF [id number] A [facility] [place] Other 0 Self 0 [facility] [id number] S [id number] [facility] [place] Other 0 Self 0 SELF PAY MVP GOLD MEDICARE ADV [id number] SP [id number] SELF PAY MEDICARE PART A [id number] SP [id number] [facility] [place] Other 0 Self 0 [facility] [place] Other 0 Self 0 [facility] [place] Other 0 Self 0 MEDICARE PART A [id number] SP [id number] [facility] [place] Other 0 Self 0 [facility] [place] Other 0 Self 0 [facility] F [id number] SELF [id number] [facility] [place] Other 0 Self 0 [facility] [place] Other 0 Self 0 [facility] [place] Other 0 Self 0 ANSI-Medicare Part B [id number] ANSI-Health Maintenance Organization (HM O) [id number] [place] Other 0 Self 0 Medicare Part [place] Other 0 Self 0 [place] Individual Policy 0 Tana f 0 [place] Individual Policy 0 Tana f 0 Medicare [place] Individual Policy 0 Tana f 0 Medicare [place] Individual Policy 0 Tana f 0 MEDICARE [id number] SP [id number] A Medicare [facility] Medicare Primary Self MEDICARE C [id number] S [id number] A [id number] A Problems, Conditions, and Diagnoses Code Display Name Description Problem Type Effective Dates Data Source(s) 45184480 Essential hypertension Essential hypertension Problem 06/14/2020 12:00:00 AM EST MEDENT ([facility], ) 302438458 Cirrhosis - non-alcoholic Cirrhosis - non-alcoholic Pr oblem 05/31/2020 12:00:00 AM EST [facility] ([facility]) 571.5 Cirrhosis Cirrhosis Problem 05/05/2020 12:00:00 AM ED T DEEDEE [facility] 570358 Breast Cancer Breast Cancer Problem 10/08/2019 12:00:00 AM EDT DEEDEE ([facility]) 023239 Breast Cancer Breast Cancer Problem 10/08/2019 12:00:00 AM EDT DE[facility] 789378 Breast Cancer Breast Cancer Problem 10/08/2019 12:00:00 AM EDT DEEDEE ([facility]) 910087 Breast Cancer Breast Cancer Problem 10/08/2019 12:00:00 AM EDT [facility] R60.9 Edema, unspecified R60.9 - Edema, unspecified Diagnosi s 03/14/2020 10:54:00 AM EDT [employer] I10 Essential (primary) hypertension I10 - Essential (primary) hypertension Diagnosis 03/14/2020 10:54:00 AM EDT [facility] E11.9 Type 2 diabetes mellitus without complic ations E11.9 - Type 2 diabetes mellitus without complications Diagnosis 03/14/2020 10:54:00 AM EDT [facility] Surgeries/Procedures Procedure Description Date Indications Data Source(s) UNLISTED PX ABDOMEN MUSCULOSKELETAL SYSTEM Abdomen Surgery P rocedure 06/08/2020 12:00:00 AM EST [facility] ([facility] Past medical history -Please see Problem List for Act adria Chronic Problems Past medical history -Please see Problem List for Active Chronic Problems 05/05/2020 12:00:00 AM EDT [facility]ED[facility] History of orthopedic surgery L foot tarsal [...] 12/10/2019 12:00:00 AM EDT ETHAN ([facility]) ECG ROUTINE ECG W/LEAST 12 LDS W/I&R 12/09/2019 12:00: 00 AM EDT MEDENT ([facility]) Electrocardiogram Interpretation & Report Only 020 12:00:00 AM EDT MEDENT ([facility]) Ekg With Interpretation and [...] Chronic Problems 10/08/2019 12:00:00 AM EDT [facility]ED[facility] ([facility] No history of coronary artery disease No history of coronary artery disease 10/08/2019 12:00:00 AM EDT DEED[facility] ([facility]) History of orthopedic surgery L foot tarsal tunnel re lease 05/1996 History of orthopedic surgery L foot tarsal tunnel release 05/199610/08/2019 12:00:00 AM EDT [facility] History of mastectomy of left breast - 1991 History o f mastectomy of left breast - 199110/08/2019 12:00:00 AM EDT [facility] History of cholecystectomy - 2003 History of cholecystectom y - 200310/08/2019 12:00:00 AM EDT [facility] ([facility]) Hemoglobin; Glycated A1c Hemoglobin; Glycated A1c 10/08/2019 12:00: 00 AM EDT DEEDEE ([facility]) Results ID Date Data Source [id number] 09/05/2020 12:42:00 PM [facility] Name Value Range Interpretation Code Description Data Debra rce(s) Supporting Document(s) SARS coronavirus 2 RNA [Presence] in Res piratory specimen by CHERIE with probe detection NEGATIVE [facility] This lab was ordered by [facility] a nd reported by [facility]. ID Date Data Source [id number] 07/12/2020 12:00:00 AM EST [facility] Laverne Reynolds Patient Name: MIKEY [id number] Date of : [address] Date of Exam: 07/12/2020AILYN Molina [id number]#: Fax: [id number] EXAM: MRI LUMBAR SPINE WITHOUT [...] rce(s) Supporting Document(s) ID Date Data Source [id number] 06/03/2020 11:28:00 AM EST MEDENT ([facility]) Name Value Range Interpretation Code Description Data Debra rce(s) Supporting Document(s) Ferritin [Mass/volume] in Serum or Plasma 268 ng/mL 26-388 MED[facility] ([facility]) Guzvs-9-Ahjfmbnqyhr [Mass/volume] in Serum or Plasma 5.6 ng/mL [facility] ([facility]) THE AFP ASSAY IS PERFORMED ON THE [employer] BY CHEMILUMINESCENCE AND SHOULD NOT BE COMPARED [...] MEDENT ([facility]) ID Date Data Source [id number] 06/03/2020 11:28:00 AM EST MEDENT ([facility]) Name Value Range Interpretation Code Description Data Debra rce(s) Supporting Document(s) Partial Thromboplastin Time 30.4 s 24.2-38.5 ME DENT ([facility]) Prothrombin Time 17.4 s 12.5-14.3 MED[facility] ([facility]) Inr 1.39 [facility] ([facility]) THERAPUTIC HUMAN INR VALUES INDICATIONS NORMAL RANGES PROPHYLAXIS/TREATMENT OF: VENOUS THROMBOSIS 2.0-3.0 PULMONARY EMBOLISM 2.0-3.0 PREVENTION OF SYSTEMIC EMBOLISM FROM: TISSUE HEART VALVES 2.0-3.0 ACUTE MYOCARDIAL INFARCTION 2.0-3.0 VALVULAR HEART DISEASE 2.0-3.0 ATRIAL FIBRILLATION 2.0-3.0 MECHANICAL VALVES(HIGH RISK) 2.5-3.5 RECURRENT MYOCARDIAL INFARCTION 2.5-3.5 ID Date Data Source [id number] 06/03/2020 11:28:00 AM EST MEDENT ([facility]) Name Value Range Interpretation Code Description Data Debra rce(s) Supporting Document(s) Antinuclear Antibodies Direct Laboratory test result MEDENT ([facility]) Performed at: - [facility] [address] [id number] Delivery Clerk: Lu Springer MD, Phone: [phone] ID Date Data Source [id number] 06/03/2020 11:28:00 AM EST MEDENT ([facility]) Name Value Range Interpretation Code Description Data Debra rce(s) Supporting Document(s) C reactive protein [Mass/volume] in Serum or Plasma 1.10 mg/dL 0.00-0 .30 [facility] ([facility]) ID Date Data Source [id number] 06/03/2020 11:28:00 AM EST MED[facility] ([facility]) Name Value Range Interpretation Code Description Data Debra rce(s) Supporting Document(s) Glucose, Fasting 104 mg/dL 70-100 MED[facility] ([facility] tive [employer] Creatinine For GFR 1.15 mg/dL 0.70-1.30 MEDENT [...] Little GFR Left</content>
<content>ESRD GFR <15 on ENVIRONMENTAL HEALTH AND SAFETY LEADER</content>
<content></content> Chloride Level 103 meq/L 98-107 MED[facility] [...] ([facility]) ID Date Data Source [id number] 05/06/2020 12:32:00 PM EDT ETHAN ([facility]) Name Value Range Interpretation Code Description Data Debra rce(s) Supporting Document(s) Amphetamines: negative Amphetamines: ETHAN ([facility]) THC negative Thc [facility] ([facility]) Cocaine: negative Cocaine: ETHAN ([facility]) Opiates: negative Opiates: ETHAN ([facility]) OXY positive Oxy ETHAN ([facility]) MTD positive Mtd ETHAN ([facility]) Barbiturates: negative Barbiturates: ETHAN ([facility]) PCP negative Pcp ETHAN ([facility]) Benzodiazepines: negative Benzodiazepines: AT JARRET ([facility]) Methamphetamine negative Methamphetamine ATHE NA ([facility]) ID Date Data Source [id number] 05/06/2020 12:32:00 PM EDT ETHAN ([facility]) Name Value Range Interpretation Code Description Data Debra rce(s) Supporting Document(s) Amphetamines: negative Amphetamines: ETHAN ([facility]) Cocaine: negative Cocaine: [facility] ([facility] THC negative Thc [facility] ([facility] OXY positive Oxy [facility]AN ([facility]) Opiates: negative Opiates: ETHAN ([facility] MTD positive Mtd ETHAN ([facility]) Benzodiazepines: negative Benzodiazepines: AT JARRET ([facility]) Barbiturates: negative Barbiturates: ETHAN ([facility]) PCP negative Pcp ETHAN ([facility] Methamphetamine negative Methamphetamine ATHE NA ([facility]) ID Date Data Source [id number] 05/06/2020 12:32:00 PM EDT ETHAN ([facility]) Name Value Range Interpretation Code Description Data Debra rce(s) Supporting Document(s) Amphetamines: negative Amphetamines: ETHAN ([facility]) THC negative Thc ETHAN ([facility]) Cocaine: negative Cocaine: ETHAN ([facility]) Barbiturates: negative Barbiturates: ETHAN ([facility]) MTD positive Mtd ETHAN ([facility]) Opiates: negative Opiates: ETHAN ([facility]) OXY positive Oxy ETHAN ([facility]) Methamphetamine negative Methamphetamine ATHE NA ([facility]) Benzodiazepines: negative Benzodiazepines: AT JARRET ([facility]) PCP negative Pcp ETHAN ([facility]) ID Date Data Source [id number] 05/06/2020 12:00:00 AM EDT ETHAN ([facility]) Name Value Range Interpretation Code Description Data Debra rce(s) Supporting Document(s) ID Date Data Source [id number] 05/06/2020 12:00:00 AM EDT ETHAN ([facility]) Name Value Range Interpretation Code Description Data Debra rce(s) Supporting Document(s) duloxetine ur CMP <5 >=5 Abnormal (applies to no n-numeric results) Duloxetine Ur CMP ETHAN ([facility]) tizanidine ur CMP 299 NG/mL >=5 normal Tizanidine Ur CMP ETHAN ([facility]) oxycodone ur CMP >20143 >=100 normal Oxycodone Ur CMP AT JARRET ([facility]) ID Date Data Source [id number] 05/06/2020 12:00:00 AM EDT NATOMA ([facility]) Name Value Range Interpretation Code Description Data Debra rce(s) Supporting Document(s) sn reuptake inhibitors ur ql <5 >=5 Sn Reup take Inhibitors Ur Ql ETHAN ([facility]) ID Date Data Source [id number] 05/06/2020 12:00:00 AM EDT NATOMA ([facility]) Name Value Range Interpretation Code Description Data Debra rce(s) Supporting Document(s) Ethyl glucuronide [Mass/volume] in Urine by Confirmatory method <50 0 >=500 Ethyl Glucuronide Ur [facility] ([facility]) alcohol metabolites ur ql cfm <200 >=200 Alcoho l Metabolites Ur Ql Cfm NATOMA ([facility]) Buprenorphine [Presence] in Urine by Confirmatory method <1 >=1 Buprenorphine Ur Ql Cfm NATOMA ([facility]) Ethyl sulfate [Mass/volume] in Urine by Confirmatory method <200 >=200 Ethyl Sulfate Ur [facility] ([facility]) Tapentadol [Presence] in Urine by Confirmatory method <100 >=100 Tapentadol Ur Ql Cfm NATOMA ([facility]) Amphetamines [Presence] in Urine by Confirmatory method <0 >=0 Amphetamines Ur Ql Cfm ETHAN ([facility]) Benzodiazepines [Presence] in Urine by Confirmatory method <50 >=50 Benzodiaz Ur Ql [facility] ([facility]) Cocaine [Presence] in Urine by Confirmatory method <50 >=50 Bze Ur Ql [facility] ([facility]) gabapentinpregabalin ur ql cf <5 >=5 Gabap entinpregabalin Ur Ql [facility] ([facility]) Oxymorphone [Mass/volume] in Urine by Confirmatory method 6270 NG/m L >=100 Oxymorphone Ur [facility] ([facility]) Oxycodone [Mass/volume] in Urine by Confirmatory method >7500 >=100 Oxycodone Ur [facility] ([facility]) Opiates [Presence] in Urine by Confirmatory method >=100 >=1 00 Opiates Ur Ql [facility] ([facility]) Meperidine [Presence] in Urine by Confirmatory method <100 >=100 Meperidine Ur Ql [facility] ([facility]) 6-Monoacetylmorphine (6-ERIKA) [Presence] in Urine by Confirma tory method <10 >=10 6Mam Ur Ql [facility] ([facility]) Methadone [Presence] in Urine by Confirmatory method <200 > =200 Methadone Ur Ql [facility] ([facility]) Carisoprodol+Meprobamate [Presence] in Urine by Screen method <200 >=200 Carisoprodol+meprob Ur Ql [facility] ([facility]) Fentanyl+Norfentanyl [Presence] in Urine by Confirmatory method <5 >=5 Fentanyl+norfentanyl Ur Ql [facility] ([facility]) Tramadol [Presence] in Urine by Confirmatory method <100 >= 100 Tramadol Ur Ql [facility] ([facility]) Cotinine [Presence] in Urine by Confirmatory method <125 >= 125 Cotinine Ur Ql [facility] ([facility]) Creatinine [Mass/volume] in Urine 130.3 mg/dL 20 - 370 [facility] pH of Urine 4.5 - 9.0 normal pH Ur [facility] ([facility]) ID Date Data Source [id number] 05/06/2020 12:00:00 AM EDT ETHAN ([facility]) Name Value Range Interpretation Code Description Data Debra rce(s) Supporting Document(s) dehydrotizanidine ur cfm-mcnc 60 NG/mL >=5 Dehydr otizanidine Ur Cfm-mcnc ETHAN ([facility]) tizanidine ur ql cfm >=5 >=5 Tizanidine Ur Q l Cfm ETHAN ([facility]) tizanidine ur cfm-mcnc 238 NG/mL >=25 Tizanidine Ur Cfm-mcnc ETHAN ([facility]) ID Date Data Source [id number] 05/06/2020 12:00:00 AM EDT ETHAN ([facility]) Name Value Range Interpretation Code Description Data Debra rce(s) Supporting Document(s) ID Date Data Source [id number] 05/06/2020 12:00:00 AM EDT ETHAN ([facility]) Name Value Range Interpretation Code Description Data Debra rce(s) Supporting Document(s) ID Date Data Source [id number] 05/06/2020 12:00:00 AM EDT ETHAN ([facility]) Name Value Range Interpretation Code Description Data Debra rce(s) Supporting Document(s) ID Date Data Source [id number] 05/06/2020 12:00:00 AM EDT ETHAN ([facility]) Name Value Range Interpretation Code Description Data Debra rce(s) Supporting Document(s) tizanidine ur CMP 299 NG/mL >=5 normal Tizanidine Ur CMP ETHAN ([facility]) duloxetine ur CMP <5 >=5 Abnormal (applies to no n-numeric results) Duloxetine Ur CMP ETHAN ([facility]) oxycodone ur CMP >03888 >=100 normal Oxycodone Ur CMP AT [facility] ([facility]) ID Date Data Source [id number] 05/06/2020 12:00:00 AM EDT NATOMA ([facility]) Name Value Range Interpretation Code Description Data Debra rce(s) Supporting Document(s) sn reuptake inhibitors ur ql <5 >=5 Sn Reup take Inhibitors Ur Ql ETHAN ([facility]) ID Date Data Source [id number] 05/06/2020 12:00:00 AM EDT NATOMA ([facility]) Name Value Range Interpretation Code Description Data Debra rce(s) Supporting Document(s) Buprenorphine [Presence] in Urine by Confirmatory method <1 >=1 Buprenorphine Ur Ql [facility] ([facility]) alcohol metabolites ur ql cfm <200 >=200 Alcoho l Metabolites Ur Ql [facility] ([facility]) Ethyl sulfate [Mass/volume] in Urine by Confirmatory method <200 >=200 Ethyl Sulfate Ur [facility] ([facility]) Ethyl glucuronide [Mass/volume] in Urine by Confirmatory method <50 0 >=500 Ethyl Glucuronide Ur [facility] ([facility]) Tapentadol [Presence] in Urine by Confirmatory method <100 >=100 Tapentadol Ur Ql [facility] ([facility]) Amphetamines [Presence] in Urine by Confirmatory method <0 >=0 Amphetamines Ur Ql [facility] ([facility]) gabapentinpregabalin ur ql cfm <5 >=5 Gabap entinpregabalin Ur Ql [facility] ([facility]) Benzodiazepines [Presence] in Urine by Confirmatory method <50 >=50 Benzodiaz Ur Ql [facility] ([facility]) Cocaine [Presence] in Urine by Confirmatory method <50 >=50 Bze Ur Ql [facility] ([facility]) Oxycodone [Mass/volume] in Urine by Confirmatory method >7500 >=100 [facility] Opiates [Presence] in Urine by Confirmatory method >=100 >=1 00 Opiates Ur Ql [facility] ([facility]) 6-Monoacetylmorphine (6-ERIKA) [Presence] in Urine by Confirma tory method <10 >=10 6Mam Ur Ql [facility] ([facility]) Oxymorphone [Mass/volume] in Urine by Confirmatory method 6270 NG/m L >=100 Oxymorphone Ur [facility] ([facility]) Meperidine [Presence] in Urine by Confirmatory method <100 >=100 Meperidine Ur Ql [facility] ([facility]) Methadone [Presence] in Urine by Confirmatory method <200 > =200 Methadone Ur Ql [facility] ([facility]) Carisoprodol+Meprobamate [Presence] in Urine by Screen method <200 >=200 Carisoprodol+meprob Ur Ql [facility] ([facility]) Fentanyl+Norfentanyl [Presence] in Urine by Confirmatory method <5 >=5 Fentanyl+norfentanyl Ur Ql [facility] ([facility]) pH of Urine 4.5 - 9.0 normal pH Ur NATOMA ([facility]) Tramadol [Presence] in Urine by Confirmatory method <100 >= 100 Tramadol Ur Ql [facility] ([facility]) Cotinine [Presence] in Urine by Confirmatory method <125 >= 125 Cotinine Ur Ql [facility] ([facility]) Creatinine [Mass/volume] in Urine 130.3 mg/dL 20 - 370 normal C reat Ur-nc NATOMA ([facility]) ID Date Data Source [id number] 05/06/2020 12:00:00 AM EDT ETHAN ([facility]) Name Value Range Interpretation Code Description Data Debra rce(s) Supporting Document(s) tizanidine ur ql cfm >=5 >=5 Tizanidine Ur Q l [facility] ([facility]) tizanidine ur [facility] 238 NG/mL >=25 Tizanidine Ur Cfm-mcnc ETHAN ([facility]) dehydrotizanidine ur cfm-mcnc 60 NG/mL >=5 Dehydr otizanidine Ur Cfm-mcnc ETHAN ([facility]) ID Date Data Source [id number] 05/06/2020 12:00:00 AM EDT ETHAN ([facility]) Name Value Range Interpretation Code Description Data Debra rce(s) Supporting Document(s) ID Date Data Source [id number] 05/06/2020 12:00:00 AM EDT ETHAN ([facility]) Name Value Range Interpretation Code Description Data Debra rce(s) Supporting Document(s) ID Date Data Source [id number] 05/06/2020 12:00:00 AM EDT ETHAN ([facility]) Name Value Range Interpretation Code Description Data Debra rce(s) Supporting Document(s) ID Date Data Source [id number] 05/05/2020 11:38:00 AM EDT [place] ([facility]) Name Value Range Interpretation Code Description Data Debra rce(s) Supporting Document(s) Hemoglobin A1c/Hemoglobin.total in Blood 5.1 Normal Hgb A1c [place] ([facility]) ID Date Data Source [id number] 03/14/2020 10:59:00 AM EDT [place] ([facility]) Name Value Range Interpretation Code Description Data Debra rce(s) Supporting Document(s) Reported Physicians See Note Reported Physicians [facility] Note: Reported Physicians:Ordering: Katja SoloAttending: Katja Mccall ID Date Data Source [id number] 03/14/2020 10:59:00 AM EDT [place] ([facility]) Name Value Range Interpretation Code Description Data Debra rce(s) Supporting Document(s) PROBNP 449 pg/mL Abnormal (applies to non-numeric res ults) PROBNP [place] ([facility] Note: The following cut-points have bee n suggested for the use of proBNP for the diagnostic evaluation of heart failure (HF) in patients with acute dyspnea: Modality Age Optimal Cut (years) Point Diagnosis (rule in HF) <50 450 pg/mL 50 - 75 900 pg/mL >75 1800 pg/mL Exclusion (rule out HF) Age independent 300 pg/mL Performed at: - [address] [id number] Delivery Clerk: Radha Arroyo MD, Phone: [phone] Observer: PROBNP PROBNP [id number] [phone] (A) ID Date Data Source [id number] 03/14/2020 10:59:00 AM EDT [facility] ([facility]) Name Value Range Interpretation Code Description Data Debra rce(s) Supporting Document(s) Thyrotropin [Units/volume] in Serum or Plasma by Detec tion limit <= 0.05 mIU/L 3.835 uIU/ML Normal TSH [facility]BY ([facility]) Note: Patients should not be tested for 72 hours post fluorescein dye angiography. A false depression of result may occur.Responsible Observer: TSH TSH 300.5500 (A) ID Date Data Source [id number] 03/14/2020 10:59:00 AM EDT [facility] ([facility]) Name Value Range Interpretation Code Description Data Debra rce(s) Supporting Document(s) Deprecated Cholesterol.in LDL/Cholestero l.in HDL [Mass ratio] in Serum or Plasma 3.1 Normal CHOL/HDL RATIO [facility]BY ([facility] ) Note: Responsible Observer: CHOL/HDL RAT IO CHOL/HDL RATIO 300.4700 (A) Cholesterol crystals [Presence] in Stone by Infrared spectroscop y 101 MG/DL Below low normal CHOLESTEROL [facility] ([facility]) Note: Responsible Observer: CHOL CHOLEST JORDAN 300.4350 (A) Cholesterol in HDL [Mass/volume] in Serum or Plasma ultracen trifugate 33 MG/DL Below low normal HDL CHOLESTEROL [facility] ([facility]) Note: Responsible Observer: HDL HDL CHOL ESTEROL 300.4600 (A) Triglyceride [Mass/volume] in Serum or Plasma 75 MG/DL N ormal TRIGLYCERIDES [facility]BY ([facility]) Note: Responsible Observer: TRIG TRIGLYC ERIDES 300.4300 (A) Cholesterol in LDL [Mass/volume] in Serum or Plasma by Direct as say 53 MG/DL Normal LDL CHOLESTEROL [facility] ([facility]) Note: Responsible Observer: LDL LDL CHOL ESTEROL 300.4400 (A) ID Date Data Source [id number] 03/14/2020 10:59:00 AM EDT [facility] ([facility]) Name Value Range Interpretation Code Description Data Debra rce(s) Supporting Document(s) BILIRUBIN,DIRECT 0.9 MG/DL Above high normal BILIRUBIN,DI RECT [facility]BY ([facility]) Note: Responsible Observer: DIRCT BILIRU BIN DIRECT BILIRUBIN 300.2725 (A) ID Date Data Source [id number] 03/14/2020 10:59:00 AM EDT LIBBY ([facility]) Name Value Range Interpretation Code Description Data Debra rce(s) Supporting Document(s) Albumin [Mass/volume] in Synovial fluid 3.1 G/DL Normal ALBUMIN [facility]BY ([facility]) Note: Responsible Observer: ALB ALBUMIN 300.3900 (A) Albumin/Globulin [Mass Ratio] in Amniotic fluid 0.9 G/DL Below low normal ALB/GLOB RATIO [facility] ([facility]) Note: Responsible Observer: A/G RATIO AL B/GLOB RATIO 300.4100 (A) Alanine aminotransferase [Enzymatic activity/volume] in Seru m or Plasma 20 U/L Normal ALT [facility]BY ([facility]) Note: Responsible Observer: ALT/SGPT ALT 300.3100 (A) Alkaline phosphatase isoenzyme [Units/volume] in Serum or Plasma 90 U/L Normal ALKALINE PHOSPHATASE [facility] ([facility]) Note: Responsible Observer: ALK PHOS ALK KENNEDY PHOSPHATASE 300.3110 (A) Aspartate aminotransferase [Enzymatic activity/volume] in Serum or Plasma 36 U/L Normal AST [facility] ([facility]) Note: Responsible Observer: AST/SGOT AST 300.3050 (A) Urea nitrogen/Creatinine [Mass Ratio] in Serum or Plasma 17 Normal BUN/CREAT RATIO [facility]BY ([facility]) Note: Responsible Observer: BUN/CREAT RA LUPE BUN/CREAT RATIO 300.0450 (A) Bilirubin.total [Mass/volume] in Serum or Plasma 1.8 MG/DL Above high normal BILIRUBIN,TOTAL [place] ([facility]) Note: Responsible Observer: TOTAL BILI T OTAL BILIRUBIN 300.2700 (A) BLOOD UREA NITRO 12 MG/DL Normal [facility]LO[facility]RO [facility] ([facility]) Note: Responsible Observer: BUN BLOOD UR EA NITROGEN 300.0350 (A) CA 8.4 MG/DL Below low normal CA [place] ([facility]) Note: Responsible Observer: CA CALCIUM 300.2200 (A) Chloride [Moles/volume] in Serum, Plasma or Blood 103 MEQ/L Normal CHLORIDE [place] ([facility]) Note: Responsible Observer: CL CHLORIDE 300.0200 (A) Carbon dioxide, total [Moles/volume] in Serum or Plasma 28 MEQ/L Normal CARBON DIOXIDE [place] ([facility]) Note: Responsible Observer: CO2 CARBON D IOXIDE 300.0250 (A) Creatine/Creatinine [Mass Ratio] in Urine 0.7 MG/DL Meghann l CREATININE [place] ([facility]) Note: Responsible Observer: CREAT CREATI NINE 300.0400 (A) Globulin [Mass/volume] in Serum by calculation 3.3 G/DL Normal GLOBULIN [place] ([facility]) Note: Responsible Observer: GLOB GLOBULI N 300.4050 (A) GFR > 90.0 ML/MIN GFR [place] ([facility]) Note: Stage G1 - Normal or high [...] Blood 12 Normal ANION GAP [place] ([facility]) Note: Responsible Observer: ANION GAP AN ION GAP 300.0300 (A) Glucose [Presence] in Urine 109 MG/DL Above high normal G LUCOSE [place] ([facility]) Note: Responsible Observer: GLU GLUCOSE 300.0500 (A) Potassium [Mass/volume] in Blood 4.1 MEQ/L Normal POT ASSIUM [place] ([facility]) Note: Responsible Observer: K POTASSIUM 300.0150 (A) Sodium [Moles/volume] in Serum, Plasma or Blood 139 MEQ/L Normal SODIUM [place] ([facility]) Note: Responsible Observer: NA SODIUM 3 00.0100 (A) Protein [Mass/volume] in Synovial fluid 6.4 G/DL Normal TOTAL PROTEIN [place] ([facility]) Note: Responsible Observer: TP TOTAL PRO TEIN 300.3750 (A) ID Date Data Source [id number] 03/14/2020 10:59:00 AM EDT [place] ([facility]) Name Value Range Interpretation Code Description Data Debra rce(s) Supporting Document(s) Deprecated Creatinine 127.8 MG/DL CREAT RANDOM URI NE [place] ([facility]) Note: No Normal Ranges Available for th is Procedure.Responsible Observer: UR CREAT UR CREATININE 200.3655 (A) Microalbumin [Mass/volume] in Urine < 3.0 MG/L MICROALBUMIN,URINE [place] ([facility]) Note: Responsible Observer: UR MICROALB RND UR MICROALBUMIN RANDOM 200.4000 (A) Microalbumin/Creatinine [Mass Ratio] in Urine 2.3 UG/MG_CR Normal MICROALBUM/CREATININE RATIO,UR [place] ([facility]) Note: Responsible Observer: UR MICROALB/ CRE UR MICROALBUMIN/CREAT RATIO 200.4100 (A) ID Date Data Source [id number] 03/14/2020 10:59:00 AM EDT [place] ([facility]) Name Value Range Interpretation Code Description Data Debra rce(s) Supporting Document(s) APPEARANCE,UR CLEAR APPEARANCE,UR [facility] Note: Responsible Observer: UR APPEAR UR APPEARANCE 200.0250 (A) BILIRUBIN,UR NEGATIVE BILIRUBIN,UR [place] ([facility]) Note: Responsible Observer: UR BILI UR B ILIRUBIN 200.0750 (A) COLOR,UR YELLOW COLOR,UR [facility] Note: Responsible Observer: UR COLOR UR COLOR 200.0200 (A) GLUCOSE, UR NEGATIVE MG/DL [facility]COSE, UR [facility] Note: Responsible Observer: UR GLU UR GL UCOSE 200.0500 (A) KETONES,UR NEGATIVE MG/DL KETONES,UR [place] ([facility]) Note: Responsible Observer: UR KETO UR K ETONES 200.0600 (A) LEUKOCYTE ESTERASE ,UR NEGATIVE LEUKOCYTE EST ERASE ,UR [place] ([facility]) Note: Responsible Observer: UR NITHYA ALDO ASE UR LEUKOCYTE ESTERASE 200.0725 (A) NITRATE,UR NEGATIVE NITRATE,UR [place] ([facility]) Note: Responsible Observer: UR NIT UR NI TRATE 200.0700 (A) OCCULT BLOOD,UR NEGATIVE OCCULT BLOOD,UR [place] ([facility]) Note: Responsible Observer: UR OCLT BLD UR OCCULT BLOOD 200.0650 (A) PH,UR 7.0 PH,UR [place] ([facility]) Note: Responsible Observer: UR PH UR PH 200.0350 (A) PROTEIN,UR NEGATIVE MG/DL PROTEIN,UR [place] ([facility]) Note: Responsible Observer: UR PROT UR P ROTEIN 200.0450 (A) SPECIFIC GRAVITY,UR 1.011 Normal SPECIFIC GRAVITY,UR [place] ([facility]) Note: Responsible Observer: SG URINE SPE CIFIC GRAVITY,UR 200.0410 (A) UROBILINOGEN,UR 4.0 EU_MG/DL Abnormal (applies to non- numeric results) UROBILINOGEN,UR [place] ([facility]) Note: Responsible Observer: UR URO UR UR OBILINOGEN 200.0900 (A) ID Date Data Source [id number] 03/14/2020 10:59:00 AM EDT [place] ([facility]) Name Value Range Interpretation Code Description Data Debra rce(s) Supporting Document(s) BASO % (AUTO) 0.9 % Normal BASO % (AUTO) [place] ([facility]) Note: Responsible Observer: BASO % (AUTO ) BASO % (AUTO) 100.1250 (A) BASO # (AUTO) 0.07 10\\^3/uL Normal BASO # (AUTO) [place] ([facility]) Note: Responsible Observer: BASO # (AUTO ) BASO # (AUTO) 100.1500 (A) EOS # (AUTO) 0.20 10\\^3/uL Normal EOS # (AUTO) [place] ( [facility]) Note: Responsible Observer: EOS # (AUTO) EOS # (AUTO) 100.1450 (A) EOS % (AUTO) 2.6 % Normal EOS % (AUTO) [place] ([facility]) Note: Responsible Observer: EOS % (AUTO) EOS % (AUTO) 100.1200 (A) GRAN # (AUTO) 5.17 10\\^3/uL Normal GRAN # (AUTO) [place] ([facility]) Note: Responsible Observer: GRAN # (AUTO ) GRAN #(AUTO) 100.1325 (A) GRAN % (AUTO) 68.3 % Normal GRAN % (AUTO) [place] ([facility]) Note: Responsible Observer: GRAN % (AUTO ) GRAN % (AUTO) 100.1000 (A) Hematocrit [Volume Fraction] of Blood by Automated count 37.4 % Below low normal HEMATOCRIT [place] ([facility]) Note: Responsible Observer: HCT HEMATOCR IT 100.0400 (A) Hemoglobin [Mass/volume] in Blood 13.1 G/DL Normal HE MOGLOBIN [place] ([facility]) Note: Responsible Observer: HGB HEMOGLOB IN 100.0300 (A) IG % (AUTO) 0.3 % IG % (AUTO) [place] ([facility]) Note: Responsible Observer: IG % (AUTO) IG % (AUTO) 100.1255 (A) IG # (AUTO) 0.0 10\\^3/uL IG # (AUTO) [place] ([facility]) Note: Responsible Observer: IG # (AUTO) IG # (AUTO) 100.1260 (A) LYMPH # (AUTO) 1.5 k/uL Normal LYMPH # (AUTO) [place] ( [facility]) Note: Responsible Observer: LYMPH # (AUT O) LYMPH # (AUTO) 100.1350 (A) LYMPH % (AUTO) 19.5 % Below low normal LYMPH % (AUTO) [place] ([facility]) Note: Responsible Observer: LYMPH % (AUT O) LYMPH % (AUTO) 100.1100 (A) Erythrocyte mean corpuscular hemoglobin [Entitic mass] by Automated count 31.3 PG Normal MCH [place] ([facility]) Note: Responsible Observer: MCH MCH 100 .0600 (A) Erythrocyte mean corpuscular hemoglobin concentration [Mass/volume] by Automated count 35.0 G/DL Normal MCHC [place] ([facility]) Note: Responsible Observer: MCHC MCHC 1 00.0650 (A) MONO # (AUTO) 0.64 k/uL Normal MONO # (AUTO) [place] ([facility]) Note: Responsible Observer: MONO # (AUTO ) MONO # (AUTO) 100.1400 (A) Erythrocyte mean corpuscular volume [Entitic volume] by Auto mated count 89.3 FL Normal MCV [facility] ([facility]) Note: Responsible Observer: MCV MCV 100 .0550 (A) MONO % (AUTO) 8.4 % Normal MONO % (AUTO) [place] ([facility]) Note: Responsible Observer: MONO % (AUTO ) MONO% (AUTO) 100.1150 (A) MPV 11.8 FL Normal MPV [place] ([facility]) Note: Responsible Observer: MPV MPV 100 .0950 (A) Platelets [#/volume] in Plasma by Automated count 104 10\\^3/uL Below low normal PLATELET COUNT [place] ([facility]) Note: Responsible Observer: PLT PLATELET COUNT 100.0850 (A) Erythrocytes [#/volume] in Blood by Automated count 4.19 10\\^6/u L Below low normal RED BLOOD COUNT [facility] ([facility]) Note: Responsible Observer: RBC RED BLOO D COUNT 100.0250 (A) Erythrocyte distribution width [Ratio] by Automated count 14.0 % Normal RDW [facility] ([facility]) Note: Responsible Observer: RDW RDW 100 .0700 (A) Leukocytes [#/volume] in Blood by Automated count 7.58 10\\^3/uL Normal WHITE BLOOD COUNT [facility] ([facility]) Note: Responsible Observer: WBC WHITE BL OOD COUNT 100.0150 (A) ID Date Data Source [id number] 03/14/2020 01:14:00 PM EDT [facility] Has Patient Fasted For The Past 12 [...] WHITE BLOOD COUNT 7.58 10^3/uL 4.00-10.50 N [facility] RED BLOOD COUNT 4.19 10^6/uL 4.30-5.80 L [facility] HEMOGLOBIN 13.1 G/DL 13.0-17.5 N [facility] HEMATOCRIT 37.4 % 41.0-53.0 L [facility] MCV 89.3 FL 80.0-100.0 N [facility] MCH 31.3 PG 27.0-34.0 N [facility] MCHC 35.0 G/DL 32-36 N [facility] RDW 14.0 % 11.5-14.5 N [facility] PLATELET COUNT 104 10^3/uL 130-400 L [facility] MPV 11.8 FL 8.7-13.2 N [facility] GRAN % (AUTO) 68.3 % 42.0-75.0 N [facility] LYMPH % (AUTO) 19.5 % 20.0-51.0 L [facility] MONO % (AUTO) 8.4 % 2.0-15.0 N [facility] EOS % (AUTO) 2.6 % 0.0-11.0 N [facility] BASO % (AUTO) 0.9 % 0.0-2.0 N [facility] IG % (AUTO) 0.3 % 1.00-5.00 [facility] IG # (AUTO) 0.0 10^3/uL <0.5 [facility] GRAN # (AUTO) 5.17 10^3/uL 1.50-6.50 N [facility] LYMPH # (AUTO) 1.5 k/uL 1.0-5.0 N [facility] MONO # (AUTO) 0.64 k/uL 0.20-1.50 N [facility] EOS # (AUTO) 0.20 10^3/uL 0.00-1.10 N [facility] BASO # (AUTO) 0.07 10^3/uL 0.00-0.20 N [facility] ID Date Data Source [id number] 03/14/2020 01:27:00 PM EDT [facility] Has Patient Fasted For The Past 12 [...] Debra rce(s) Supporting Document(s) COLOR,UR YELLOW [facility]LLOW [facility] APPEARANCE,UR CLEAR CLEAR [facility] PH,UR 7.0 5.0-8.0 [facility] SPECIFIC GRAVITY,UR 1.011 1.002-1.035 N [facility] PROTEIN,UR NEGATIVE MG/DL NEGATIVE [facility] GLUCOSE, UR NEGATIVE MG/DL NEGATIVE [facility] KETONES,UR NEGATIVE MG/DL NEGATIVE [facility] OCCULT BLOOD,UR NEGATIVE NEGATIVE [facility] NITRATE[facility]UR NEGATIVE NEGATIVE [facility] LEUKOCYTE ESTERASE ,UR NEGATIVE NEGATIVE [facility] BILIRUBIN,UR NEGATIVE NEGATIVE [facility] UROBILINOGEN,UR 4.0 EU MG/DL NEG-0-1.0 [facility] Date Data Source [id number] 03/14/2020 01:42:00 PM EDT [facility] Has Patient Fasted For The Past 12 [...] Supporting Document(s) CREAT RANDOM URINE 127.8 MG/DL [facility] No Normal Ranges Available for this Pro cedure. MICROALBUMIN,URINE < 3.0 MG/L [facility] MICROALBUM/CREATININE RATIO,UR 2.3 UG/MG CR 0.0-30.0 N [facility] ID Date Data Source [id number] 03/17/2020 03:09:00 PM EDT [facility] Has Patient Fasted For The Past 12 [...] Supporting Document(s) PROBNP 449 pg/mL 0-376 [facility] [facility] The following cut-points have been sugg ested for the use of proBNP for the diagnostic evaluation of heart failure (HF) in patients with acute dyspnea: Modality Age Optimal Cut (years) Point Diagnosis (rule in HF) <50 450 pg/mL 50 - 75 900 pg/mL >75 1800 pg/mL Exclusion (rule out HF) Age independent 300 pg/mL Performed at: - [facility] [id number] Delivery Clerk: Radha Arroyo MD, Phone: [phone] ID Date Data Source [id number] 03/14/2020 01:42:00 PM EDT [facility] Has Patient Fasted For The Past 12 [...] Supporting Document(s) SODIUM 139 MEQ/L 135-145 N [facility] POTASSIUM 4.1 MEQ/L 3.5-5.3 N [facility] CHLORIDE 103 MEQ/L 94-110 N [facility] CARBON DIOXIDE 28 MEQ/L 22-33 N [facility] ANION GAP 12 5-16 N [facility] BLOOD UREA NITRO 12 MG/DL 7-25 N [facility] CREATININE 0.7 MG/DL 0.6-1.4 N [facility] GFR > 90.0 ML/MIN [facility] Stage G1 - Normal or high kidney functi on The GFR is an estimate of the Glomerular Filtration Rate. It is an aid to assess a patient's renal function. It is not a conclusive diagnosis of kidney disease. GFR normal is >=90 The MDRD GFR calculation is considered valid between the ages of 18 and 75 years only. BUN/CREAT RATIO 17 8-36 N [facility] GLUCOSE 109 MG/DL 70-100 H [facility] CA 8.4 MG/DL 8.7-10.5 L [facility] BILIRUBIN,TOTAL 1.8 MG/DL 0.1-1.3 H [facility] AST 36 U/L 5-40 N [facility] ALT 20 U/L 5-48 N [facility] ALKALINE PHOSPHATASE 90 U/L 40-140 N [facility] alth TOTAL PROTEIN 6.4 G/DL 5.9-8.3 N [facility] ALBUMIN 3.1 G/DL 3.0-5.1 N [facility] GLOBULIN 3.3 G/DL 1.5-3.5 N [facility] ALB/GLOB RATIO 0.9 G/DL 1.0-3.0 L [facility] ID Date Data Source [id number] 03/14/2020 01:42:00 PM EDT [facility] Has Patient Fasted For The Past 12 [...] Supporting Document(s) BILIRUBIN,DIRECT 0.9 MG/DL 0-0.4 H [facility] ID Date Data Source [id number] 03/14/2020 01:42:00 PM EDT [facility] Has Patient Fasted For The Past 12 [...] Supporting Document(s) TRIGLYCERIDES 75 MG/DL 45-150 N [facility] CHOLESTEROL 101 MG/DL 125-200 L [facility] LDL CHOLESTEROL 53 MG/DL 50-130 N [facility] HDL CHOLESTEROL 33 MG/DL 39-96 L [facility] CHOL/HDL RATIO 3.1 0-4.9 N [facility] ID Date Data Source [id number] 03/14/2020 01:42:00 PM EDT [facility] Has Patient Fasted For The Past 12 [...] Supporting Document(s) TSH 3.835 uIU/ML 0.470-4.200 N [facility] Patients should not be tested for 74 ho urs post fluorescein dye angiography. A false depression of result may occur. ID Date Data Source [id number] 12/07/2019 12:31:13 PM EDT [facility] Name Value Range Interpretation Code Description Data Debra rce(s) Supporting Document(s) POC GLUCOSE 193 mg/dL (70-99) H [facility] NOTIFIED NURSEPERFORMED BY CLINICAL S ZAY ID Date Data Source [id number] 12/07/2019 12:03:08 PM EDT [facility] Name Value Range Interpretation Code Description Data Debra rce(s) Supporting Document(s) SODIUM 137 mmol/L (136-145) [facility] POTASSIUM 4.1 mmol/L (3.6-5.2) [facility] CHLORIDE 100 mmol/L (100-108) [facility] CO2 31 mmol/L (22-31) [facility] ANION GAP 6 mmol/L (7-16) L [facility] UREA NITROGEN 10 mg/dL (7-24) [facility] CREATININE 0.82 mg/dL (0.80-1.30) [facility] BUN/CREAT RATIO 12.2 RATIO (10.0-20.0) [facility] GLUCOSE 176 mg/dL (70-99) H [facility] CALCIUM 8.5 mg/dL (8.4-10.2) [facility] GFR >60 ml/min/1.73m2 (>59) [facility] GFR ( AMER) >60 ml/min/1.73m2 (>59) [facility] GFR INTERPRETATION [facility] --NORMAL KIDNEY FUNCTION OR MILD DISEASE - GFR >OR= 60CHRONIC KIDNEY DISEASE - GFR 15 - 59RENAL FAILURE - GFR <15 Est. GFR calculation based on the MDRDstudy equation, which assumes a steadystate for creatinine. Est. GFR should notbe used for medication dosing. ID Date Data Source [id number] 12/07/2019 08:49:27 AM EDT [facility] Name Value Range Interpretation Code Description Data Debra rce(s) Supporting Document(s) POC GLUCOSE 110 mg/dL (70-99) H [facility] PERFORMED BY CLINICAL STAFF ID Date Data Source [id number] 12/06/2019 10:10:17 PM EDT [facility] Name Value Range Interpretation Code Description Data Debra rce(s) Supporting Document(s) POC GLUCOSE 147 mg/dL (70-99) H [facility] NOTIFIED NURSEPERFORMED BY CLINICAL S TAFF ID Date Data Source [id number] 12/06/2019 06:39:39 PM EDT [facility] Name Value Range Interpretation Code Description Data Debra rce(s) Supporting Document(s) POC GLUCOSE 191 mg/dL (70-99) H [facility] PERFORMED BY CLINICAL STAFF ID Date Data Source [id number] 12/06/2019 03:03:11 PM EDT [facility] Name Value Range Interpretation Code Description Data Debra rce(s) Supporting Document(s) POC GLUCOSE 135 mg/dL (70-99) H [facility] PERFORMED BY CLINICAL STAFF ID Date Data Source [id number] 12/06/2019 10:57:00 AM EDT [facility] Name Value Range Interpretation Code Description [...] ssociates of Y) ID Date Data Source [id number] 12/06/2019 09:16:53 AM EDT [facility] Name Value Range Interpretation Code Description Data Debra rce(s) Supporting Document(s) POC GLUCOSE 118 mg/dL (70-99) H [facility] PERFORMED BY CLINICAL STAFF ID Date Data Source [id number] 12/06/2019 07:53:42 AM EDT [facility] Name Value Range Interpretation Code Description Data Debra rce(s) Supporting Document(s) POC GLUCOSE 120 mg/dL (70-99) H [facility] PERFORMED BY CLINICAL STAFF ID Date Data Source [id number] 12/08/2019 12:50:25 PM EDT [facility] Name Value Range Interpretation Code Description Data Debra rce(s) Supporting Document(s) TONI SCREEN @ (NEG) [facility] [place] ID Date Data Source [id number] 12/06/2019 06:51:21 AM EDT [facility] Name Value Range Interpretation Code Description Data Debra rce(s) Supporting Document(s) PHOSPHORUS 2.7 mg/dL (2.5-4.5) [facility] ID Date Data Source [id number] 12/06/2019 06:51:21 AM EDT [facility] Name Value Range Interpretation Code Description Data Debra rce(s) Supporting Document(s) SODIUM 140 mmol/L (136-145) [facility] POTASSIUM 3.6 mmol/L (3.6-5.2) [facility] CHLORIDE 102 mmol/L (100-108) [facility] CO2 33 mmol/L (22-31) H [facility] ANION GAP 5 mmol/L (7-16) L [facility] UREA NITROGEN 9 mg/dL (7-24) [facility] CREATININE 0.69 mg/dL (0.80-1.30) L [facility] BUN/CREAT RATIO 13.0 RATIO (10.0-20.0) [facility] GLUCOSE 119 mg/dL (70-99) H [facility] CALCIUM 8.0 mg/dL (8.4-10.2) L [facility] TOTAL PROTEIN 5.7 g/dL (6.4-8.2) L [facility] ALBUMIN 2.2 g/dL (3.2-4.5) L [facility] GLOBULIN 3.5 g/dL (2.7-4.3) [facility] ALB/GLOB RATIO 0.6 RATIO [facility] ALKALINE PHOSPHATASE 85 U/L (45-117) [facility] BILIRUBIN,TOTAL 1.7 mg/dL (0.0-1.0) [facility] PLEASE NOTE:Total bilirubin results may be falselyelevated in patients taking Eltrombopag. AST (SGOT) 37 U/L (11-39) [facility] ALT (SGPT) 20 U/L (12-78) [facility] GFR >60 ml/min/1.73m2 (>59) [facility] GFR ( AMER) >60 ml/min/1.73m2 (>59) [facility] GFR INTERPRETATION [facility] --NORMAL KIDNEY FUNCTION OR MILD DISEASE - GFR >OR= 60CHRONIC KIDNEY DISEASE - GFR 15 - 59RENAL FAILURE - GFR <15 Est. GFR calculation based on the MDRDstudy equation, which assumes a steadystate for creatinine. Est. GFR should notbe used for medication dosing. ID Date Data Source [id number] 12/06/2019 06:51:21 AM EDT [facility] Name Value Range Interpretation Code Description Data Debra rce(s) Supporting Document(s) MAGNESIUM 1.7 mg/dL (1.7-2.4) [facility] ID Date Data Source [id number] 12/06/2019 06:33:13 AM EDT [facility] Name Value Range Interpretation Code Description Data Debra rce(s) Supporting Document(s) PT 13.9 s (9.2-11.9) H [facility] INR 1.35 [facility] SUGGESTED THERAPEUTIC RANGES USING INR F ORSTABILIZED ANTICOAGULATED PATIENTS:STANDARD DOSE THERAPY INR 2.0-3.0 DVT, PE, PREVENT DVT OR EMBOLISMHIGH DOSE THERAPY INR 2.5-3.5 PREVENT EMBOLISM FROM MECHANICAL HEART VALVE ID Date Data Source [id number] 12/06/2019 06:23:55 AM EDT [facility] Name Value Range Interpretation Code Description Data Debra rce(s) Supporting Document(s) WBC 7.1 10*3/uL (4.1-11.0) [facility] [place] RBC 3.97 10*6/uL (4.60-6.10) L [facility] HGB 13.0 g/dL (13.5-18.0) L [facility] HCT 37.1 % (41.0-53.0) L [facility] MCV 93.3 fL (80.0-95.0) [facility] MCH 32.7 pg (27.0-32.0) H [facility] MCHC 35.1 g/dL (32.0-36.0) [facility] RDW 14.4 % (10.5-14.5) [facility] PLT 104 10*3/uL (150-450) L [facility] MPV 8.5 fL (7.1-10.7) [facility] ID Date Data Source [id number] 12/05/2019 09:22:49 PM EDT [facility] Name Value Range Interpretation Code Description Data Debra rce(s) Supporting Document(s) POC GLUCOSE 209 mg/dL (70-99) H [facility] NOTIFIED NURSEPERFORMED BY CLINICAL S TAFF ID Date Data Source [id number] 12/05/2019 05:10:58 PM EDT [facility] Name Value Range Interpretation Code Description Data Debra rce(s) Supporting Document(s) POC GLUCOSE 152 mg/dL (70-99) H [facility] NOTIFIED NURSEPERFORMED BY CLINICAL S TAFF ID Date Data Source [id number] 12/05/2019 02:27:17 PM EDT [facility] Name Value Range Interpretation Code Description Data Debra rce(s) Supporting Document(s) POC GLUCOSE 180 mg/dL (70-99) H [facility] PERFORMED BY CLINICAL STAFF ID Date Data Source [id number] 12/05/2019 09:36:00 AM EDT [facility] DATE OF EXAM: 12/05/2019US Abdomen [...] direction of flow. Professional interpretation performed at [facility] .End of diagnostic report for accession: [id number] Interpreted: Xavi Mariscal MDTranscribed: 12/05/2019 09:33 AMSigned: 12/05/2019 09:36 AM Xavi Mariscal MD [facility] # [id number] BILL # [id number] Name Value Range Interpretation Code Description Data Debra rce(s) Supporting Document(s) ID Date Data Source [id number] 12/05/2019 09:36:00 AM EDT [facility] DATE OF EXAM: 12/05/2019US Abdomen Ltd [...] direction of flow. Professional interpretation performed at [facility] .End of diagnostic report for accession: [id number] Interpreted: Xavi Mariscal MDTranscribed: 12/05/2019 09:33 AMSigned: 12/05/2019 09:36 AM Xavi Mariscal MD [facility] # [id number] [facility] # [id number] Name Value Range Interpretation Code Description Data Debra rce(s) Supporting Document(s) ID Date Data Source [id number] 12/05/2019 08:02:35 AM EDT [facility] Name Value Range Interpretation Code Description Data Debra rce(s) Supporting Document(s) POC GLUCOSE 106 mg/dL (70-99) H [facility] Y PERFORMED BY CLINICAL STAFF ID Date Data Source [id number] 12/05/2019 07:08:37 AM EDT [facility] Name Value Range Interpretation Code Description Data Debra rce(s) Supporting Document(s) SODIUM 140 mmol/L (136-145) [facility] POTASSIUM 3.0 mmol/L (3.6-5.2) L [facility] CHLORIDE 100 mmol/L (100-108) [facility] CO2 32 mmol/L (22-31) H [facility] ANION GAP 8 mmol/L (7-16) [facility] UREA NITROGEN 9 mg/dL (7-24) [facility] CREATININE 0.60 mg/dL (0.80-1.30) L [facility] BUN/CREAT RATIO 15.0 RATIO (10.0-20.0) [facility] GLUCOSE 118 mg/dL (70-99) H [facility] CALCIUM 7.9 mg/dL (8.4-10.2) L [facility] TOTAL PROTEIN 5.5 g/dL (6.4-8.2) L [facility] ALBUMIN 2.1 g/dL (3.2-4.5) L [facility] GLOBULIN 3.4 g/dL (2.7-4.3) [facility] ALB/GLOB RATIO 0.6 RATIO [facility] ALKALINE PHOSPHATASE 84 U/L (45-117) [facility] BILIRUBIN,TOTAL 1.6 mg/dL (0.0-1.0) H [facility] PLEASE NOTE:Total bilirubin results may be falselyelevated in patients taking Eltrombopag. AST (SGOT) 29 U/L (11-39) [facility] ALT (SGPT) 18 U/L (12-78) [facility] GFR >60 ml/min/1.73m2 (>59) [facility] GFR ( AMER) >60 ml/min/1.73m2 (>59) [facility] GFR INTERPRETATION [facility] --NORMAL KIDNEY FUNCTION OR MILD DISEASE - GFR >OR= 60CHRONIC KIDNEY DISEASE - GFR 15 - 59RENAL FAILURE - GFR <15 Est. GFR calculation based on the MDRDstudy equation, which assumes a steadystate for creatinine. Est. GFR should notbe used for medication dosing. ID Date Data Source [id number] 12/05/2019 06:33:50 AM EDT [facility] Name Value Range Interpretation Code Description Data Debra rce(s) Supporting Document(s) WBC 7.4 10*3/uL (4.1-11.0) [facility] [place] RBC 3.86 10*6/uL (4.60-6.10) L [facility] HGB 12.6 g/dL (13.5-18.0) L [facility] HCT 35.8 % (41.0-53.0) L [facility] MCV 92.8 fL (80.0-95.0) [facility] MCH 32.7 pg (27.0-32.0) H [facility] MCHC 35.3 g/dL (32.0-36.0) [facility] RDW 14.6 % (10.5-14.5) H [facility] PLT 112 10*3/uL (150-450) L [facility] MPV 8.9 fL (7.1-10.7) [facility] ID Date Data Source [id number] 12/04/2019 10:13:00 PM EDT [facility] [place] [address] [address] [place], [place] [id number] NAME: MIKEY TAPIADATE OF : 2REPORT: ADMISSION NOTEPATIENT NUMBER: [id number] STATUS: IPMEDICAL RECORD NUMBER: [id number] OF ADMISSION: 12/04/2019ROOM: [address] [place] [address] CARE PROVIDER: BLANQUITA Lamb COMPLAINT ON ADMISSION: [...] splenomegaly, the patient is being admitted to [facility] for urgent paracentesis and we [...] 04/2019 was 7.8. WBCs 8.3, hemoglobin 13.1, agbmlhlarz18.8, platelets are 125.Chest x-ray shows mild pulmonary [...] JOBY Sanchezictated: 12/04/2019 19:05DT: 12/04/2019 19:14Job #: [id number]: Dominique LambNOTE: [facility] computer generated reports are notconfirmed or authenticated unless they are signed by the providerElectronically Authenticated by:GENEVIEVE EDWARDS MD On 12/04/2019 10:13 PM EDT Name Value Range Interpretation Code Description Data Debra rce(s) Supporting Document(s) ID Date Data Source [id number] 12/10/2019 05:18:32 PM EDT [facility] Name Value Range Interpretation Code Description Data [facility] rce(s) Supporting Document(s) SMOOTH MUS IGG TITER [...] hepatitis or chronic active hepatitis. Performed by [facility], [address] [place] [phone] [email or web address] Nazario Snider MD, Lab. Director INTERPRETIVE INFORMATION: Smooth Muscle Ab, IgG Titer Less than 1:20 ........ Negative - No antibody detected. 1:20 - 1:80 .......... Weak Positive - Suggest repeat in two to three weeks with fresh specimen. 1:160 or greater ...... Positive - Suggestive of autoimmune hepatitis or chronic active hepatitis. Performed by [facility], [address] [place] [phone] [email or web address] Nazario Snider MD, Lab. Director ID Date Data Source [id number] 12/09/2019 03:26:46 PM EDT [facility] Name Value Range Interpretation Code Description Data Debra rce(s) Supporting Document(s) HEP DELTA VIRUS AB Lab [facility] NegativeReference range: Negative No ant ibody to Hepatitis Delta agent was detected. Order anti-HDV testing only when Hepatitis B virus infection has been confirmed. INTERPRETIVE INFORMATION: Hepatitis Delta Ab Test developed and characteristics determined by [facility]. See Compliance Statement D: [employer] Performed by [facility], [address] [place] [phone] [email or web address] Nazario Snider MD, Lab. Director ID Date Data Source [id number] 12/09/2019 12:46:12 AM EDT [facility] Name Value Range Interpretation Code Description Data Debra rce(s) Supporting Document(s) FACTIN IGG 26 H [facility] Reference range: 0 to 19Unit: Units [...] suspicion for AIH is strong. Performed by [facility], [address] [place] [address] [phone] [email or web address] Nazario Snider MD, Lab. Director ID Date Data Source [id number] 12/09/2019 12:12:27 AM EDT [facility] Name Value Range Interpretation Code Description Data Debra rce(s) Supporting Document(s) HEPATITIS Be AG [facility] NegativeReference range: Negative Perfor med by [facility], [address] [place] [phone] [email or web address] Nazario Snider MD, Lab. Director ID Date Data Source [id number] 12/08/2019 12:50:15 PM EDT [facility] Name Value Range Interpretation Code Description Data Debra rce(s) Supporting Document(s) TONI SCREEN @ (NEG) [facility] [place] ID Date Data Source [id number] 12/07/2019 03:01:13 PM EDT [facility] Name Value Range Interpretation Code Description Data Debra rce(s) Supporting Document(s) AFP-TUMOR MARKER @ 4.7 ng/mL (<6.0) Lab [facility] [place] ASSAY BY IMMUNOCHEMILUMINOMETRIC [...] INCREASES WITHINCREASING LEVELS. ID Date Data Source [id number] 12/07/2019 01:14:52 PM EDT [facility] Name Value Range Interpretation Code Description Data Debra rce(s) Supporting Document(s) F ACTIN IGG AB @ (<20) [facility] ID Date Data Source [id number] 12/07/2019 01:13:17 PM EDT [facility] Name Value Range Interpretation Code Description Data Debra rce(s) Supporting Document(s) MITOCHONDRIAL IGG @ 3.9 units (<20.1) [facility] INTERPRET ATION OF RESULTS: < 20.1 UNITS VZFAQWKR90.1-24.9 UNITS EQUIVOCAL > 24.9 UNITS POSITIVE The following result was obtained withthe NGI QUANTA Lite M2 EP(MIT3) ROOPA.Results obtained with other manufacturers'assay methods may not be used interchangeably.The magnitude of the reported IgG levelscannot be correlated to an endpoint titer. ID Date Data Source [id number] 12/04/2019 07:32:43 PM EDT [facility] Name Value Range Interpretation Code Description Data Debra rce(s) Supporting Document(s) HEMOGLOBIN A1C @ 7.2 % (4.0-6.0) H [facility] [place] Performed using Siemens [place] immunoassa y.Care must be taken when interpreting UkZ2xdlwenet in patients with a hemoglobin variantor decreased erythrocyte lifespan. Values 5.7 - 6.4% suggest prediabetes.Values >=6.5% are diagnostic for diabetes.REFERENCE: DIABETES CARE 2018: 41(S13-S27).PERFORMED AT [address] [place] [id number] EST AVERAGE GLUCOSE 160 mg/dL [facility] ID Date Data Source [id number] 12/04/2019 07:24:02 PM EDT [facility] [place] Name Value Range Interpretation Code Description Data Debra rce(s) Supporting Document(s) HEPATITIS B S AG @ (NEG) [facility] ID Date Data Source [id number] 12/04/2019 07:24:02 PM EDT [facility] Name Value Range Interpretation Code Description Data Debra rce(s) Supporting Document(s) HEP B CORE AB TOTAL @ (NEG) [facility] [place] ID Date Data Source [id number] 12/04/2019 07:24:02 PM EDT [facility] Name Value Range Interpretation Code Description Data Debra rce(s) Supporting Document(s) HEPATITIS C AB @ (NEG) [facility] NOT INFECT ED WITH HCV, UNLESS RECENTINFECTION IS SUSPECTED OR OTHER EVIDENCEEXISTS TO INDICATE HCV INFECTION. ID Date Data Source [id number] 12/04/2019 06:40:40 PM EDT [facility] Name Value Range Interpretation Code Description Data Debra rce(s) Supporting Document(s) CERULOPLASMIN @ 26.2 mg/dL (20-60) [facility] ID Date Data Source [id number] 12/04/2019 06:40:40 PM EDT [facility] Name Value Range Interpretation Code Description Data Debra rce(s) Supporting Document(s) A 1 ANTITRYPSIN @ 245.0 mg/dL (90-200) H [facility] ID Date Data Source [id number] 12/04/2019 04:42:37 PM EDT [facility] Name Value Range Interpretation Code Description Data Debra rce(s) Supporting Document(s) TOTAL PROTEIN 6.0 g/dL (6.4-8.2) L [facility] ID Data Source [id number] 12/04/2019 04:42:37 PM EDT [facility] Name Value Range Interpretation Code Description Data Debra rce(s) Supporting Document(s) LDH 196 U/L (84-246) [facility] ID Data Source [id number] 12/04/2019 04:42:37 PM EDT [facility] Name Value Range Interpretation Code Description Data Debra rce(s) Supporting Document(s) ALBUMIN 2.3 g/dL (3.2-4.5) L [facility] ID Date Data Source [id number] 12/04/2019 04:42:37 PM EDT [facility] Name Value Range Interpretation Code Description Data Debra rce(s) Supporting Document(s) GLUCOSE 164 mg/dL (70-99) H [facility] ID Date Data Source [id number] 12/04/2019 04:15:49 PM EDT [facility] Name Value Range Interpretation Code Description Data Debra rce(s) Supporting Document(s) WBC 8.3 10*3/uL (4.1-11.0) [facility] [place] RBC 4.06 10*6/uL (4.60-6.10) L [facility] HGB 13.1 g/dL (13.5-18.0) L [facility] HCT 37.8 % (41.0-53.0) L [facility] MCV 93.1 fL (80.0-95.0) [facility] MCH 32.2 pg (27.0-32.0) H [facility] MCHC 34.6 g/dL (32.0-36.0) [facility] RDW 14.6 % (10.5-14.5) H [facility] [place] Y PLT 125 10*3/uL (150-450) L [facility]izo MPV 8.4 fL (7.1-10.7) [facility] [place] ID Date Data Source [id number] 12/04/2019 05:56:00 PM EDT [facility] DATE OF EXAM: 12/04/2019ULTRASOUND-GUIDE D PARACENTESIS HISTORY:Massive ascites. CONSENT: Informed consent was obtained and the described risks included bleeding, infection, and bowel damage. PROCEDURE: The abdomen was examined indicating a massive amount of fluid. A site in the right lower quadrant was localized using ultrasound. 1% lidocaine was injected for local anesthesia. Under ultrasound guidance a 5 Malian Yueh catheter was inserted into the peritoneal cavity. 4000 ml of clear yellow fluid was removed, without evidence of complication. Fluid samples sent for diagnostic testing. Patient tolerated procedure well. Large volume of fluid remains. IMPRESSION: Ultrasound-guided paracentesis, as described above. Procedure performed by hRina Huerta NP. Professional interpretation performed at [facility] .End of diagnostic report for accession: [id number] Interpreted: Mikey Craig MDTranscribed: 12/04/2019 03:31 PMSigned: 12/04/2019 05:56 PM Mikey Craig MD [facility] ACC # [id number] BILL # [id number] Name Value Range Interpretation Code Description Data Debra rce(s) Supporting Document(s) ID Date Data Source [id number] 12/09/2019 08:21:42 AM EDT [facility] SPECIMEN DESCRIPTION PERITONEAL F LUIDSPECIAL REQUESTS NONECULTURE RESULTS NO ANAEROBES ISOLATED AFTER 5 DAYSREPORT STATUS FINAL 12/09/2019 Name Value Range Interpretation Code Description Data Debra rce(s) Supporting Document(s) ID Date Data Source [id number] 12/09/2019 08:21:22 AM EDT [facility] SPECIMEN DESCRIPTION PERITONEAL F LUIDSPECIAL REQUESTS NONEGRAM STAIN RARE (<1/LPF) WHITE BLOOD CELLS NO BACTERIACULTURE RESULTS NO GROWTH 5 DAYSREPORT STATUS FINAL 12/09/2019 Name Value Range Interpretation Code Description Data Debra rce(s) Supporting Document(s) ID Date Data Source [id number] 12/07/2019 08:01:35 PM EDT [facility] Name Value Range Interpretation Code Description Data Debra rce(s) Supporting Document(s) COLOR [facility] APPEAR [facility] RBC (0) [facility] TOTAL NUCLEATED CNT 160 U/L (0-300) [facility] NEUT % 2 % (0-25) [facility] LYMPH % 79 % [facility] MONO/HISTIO % 11 % [facility] MESOTHELIAL CELLS % 8 % [facility] COMMENT [facility] DIFFERENTIAL PERFORMED ON CYTOCENTRIFUGE D SMEAR PATHOLOGIST COMM [facility] MAINLY LYMPHOCYTES, WITH HISTIOCYTES AND MESOTHELIAL CELLS.REVIEWED BY MD FLAVIA 12/07/19 ID Date Data Source [id number] 12/04/2019 04:10:06 PM EDT [facility] Name Value Range Interpretation Code Description Data Debra rce(s) Supporting Document(s) FLUID ALBUMIN 0.8 g/dL [facility] ID Date Data Source [id number] 12/04/2019 03:32:27 PM EDT [facility] Name Value Range Interpretation Code Description Data Debra rce(s) Supporting Document(s) FLUID LDH 62 U/L [facility] FOR PLEURAL AND PERICARDIAL FLUID:<60% O F SERUM LD REPRESENTS TRANSUDATE>60% OF SERUM LD REPRESENTS EXUDATE ID Date Data Source [id number] 12/04/2019 03:32:27 PM EDT [facility] Name Value Range Interpretation Code Description Data Debra rce(s) Supporting Document(s) FLUID TOTAL PROTEIN <2.0 g/dL [facility] [place] FOR PLEURAL AND PERCARDIAL FLUID: <50% O F SERUM PROTEIN INDICATES TRANSUDATE >50% OF SERUM PROTEIN INDICATES EXUDATE ID Date Data Source [id number] 12/04/2019 03:32:27 PM EDT [facility] [place] Name Value Range Interpretation Code Description Data Debra rce(s) Supporting Document(s) FLUID GLUCOSE 154 mg/dL [facility] [place] ID Date Data Source [id number] 12/04/2019 03:07:44 PM EDT [facility] [place] Name Value Range Interpretation Code Description Data Debra rce(s) Supporting Document(s) FLUID SOURCE [facility] [place] ID Date Data Source [id number] 12/04/2019 11:47:00 AM EDT [facility] DATE OF EXAM: 12/04/2019CT Abdomen [...] and portal hypertension. Professional interpretation performed at [facility] .End of diagnostic report for accession: [id number] Interpreted: Gaby Mas MDTranscribed: 12/04/2019 11:39 AMSigned: 12/04/2019 11:47 AM Gaby Mas MD [facility] ACC # [id number] BILL # [id number] Name Value Range Interpretation Code Description Data Debra rce(s) Supporting Document(s) ID Date Data Source [id number] 12/04/2019 10:53:00 AM EDT [facility] DATE OF EXAM: 12/04/2019Chest 1V Portabl [...] patchy airspace opacities. Professional interpretation performed at [facility] .End of diagnostic report for accession: [id number] Interpreted: Gaby Mas MDTranscribed: 12/04/2019 10:52 AMSigned: 12/04/2019 10:53 AM Gaby Mas MD ------ [facility] ACC # [id number] BILL # [id number] Name Value Range Interpretation Code Description Data Debra rce(s) Supporting Document(s) ID Date Data Source [id number] 12/04/2019 10:32:57 AM EDT [facility] Name Value Range Interpretation Code Description Data Debra rce(s) Supporting Document(s) COLOR [facility] PERFORMED AT [address] [place] [address] APPEARANCE [facility] SPEC GRAV URINE 1.009 (1.003-1.030) [facility] PH URINE 6.0 (5.0-7.5) [facility] LEUK ESTERASE (NEG) [facility] CRITERIA FOR CULTURE NOT MET.CULTURE CAN BE ADDED WITHIN 36 HOURS OFCOLLECTION. NITRITE URINE (NEG) [facility] PROTEIN URINE (NEG) [facility] GLUCOSE URINE (NEG) [facility] KETONE URINE (NEG) [facility] [place] UROBILINOGEN 1.0 mg/dL (0-1.0) [facility] BILIRUBIN URINE (NEG) [facility] BLOOD/HGB URINE (NEG) [facility] ID Date Data Source [id number] 12/04/2019 09:58:43 AM EDT [facility] Name Value Range Interpretation Code Description Data Debra rce(s) Supporting Document(s) MUSE EKG PDF encoded [facility] NJRMNi8tVjIYQpPdu3QxEeHjXBGdFS3hhed4D7L2bKWfX0LuzAAqw0xwF4QtJ6WwLHFgBXEAKK0JcWAh jb2 [file] configuration management architect+Dtf0131Q/wVwnQeoPwtgqkUAnmEqraxZWdYR9PL7KTUidUYxdNvU0jKjvCvpIaWBNc9Ov/oXguhAc UjrhhIqxikG16+N6268bykmjeHiPZt0/pszjLlzIcmK6WVixzz7Rh4Wa00bg9aCHmINsUDHbmqtDM9eD H53UZsbxxMtarT134kO8ngCZ3XJMN/3OEL7wu6IWLr OJm/SKzZcmMbitV5809E0DbijwaRrosWsykRgoxPnmKGEsv6EL62PySCnkX1o4Jhfe6CocDL36IhFczO snG4rTfN5yAVDoPD59QH4e5p+GH2umBSfB5AbddBvnrzT1Q6k/ZPO88+X8335bmgwstC79UheKtStzHy dYJB0GK8S7ZsEGXIoOsOmuQhFVNHRFVITOWtPXDa/k udjadomkwtzhdiykgvyarmjcbpdcztosqthfuxiobldGDxURwJfIYYFBZSidWVBZagDpoxlxlgTS9mwv [file] biAKMDAwMDAwMDUyMyAwMDAwMCBuIAowMDAwMDAwNj IwYCPsLVSnUS9eQwOtXAUiJJH6MULlUCGfKKYqrzQGTCCeWNFiFEs6QMKcNSTyWWCcGLurWUZvLAFsRI M8LFBkABSkEC9hFzBkUHChZMOhUQElOIZuKNZdclFETHDxZSMnPTG1CCHfTYIqCRBfABchVRYwETUrSf v3IEUnHBVmEA7qHvFyTBBjMPK5UIRmEXFcUEOokuRP WEDkBEP3XAI9GWZxLTXcBAQpRNscHQDaOSZsVpY6OYWyVBFgMB6bRxEcYDAyLMR0SsKxXCIyJMZtltYF KYRxWWUgSLC8QtWpASSnOUBzNYlgLZMhDZObVFTpLYS7NRA5BFWaShKbCHzqSPEXXZnIE8LavjPkOgJO C9ivQl0dGdEbBVODZ0Unb5GyPMWuBTFHMi6+YkY6EFA8oSWnBuc0WMD7PTahRMZPSf== ID Date Data Source [id number] 12/04/2019 10:41:15 AM EDT [facility] Name Value Range Interpretation Code Description Data Debra rce(s) Supporting Document(s) TOTAL PROTEIN 7.4 g/dL (6.4-8.2) [facility] ALBUMIN 2.8 g/dL (3.2-4.5) L [facility] GLOBULIN 4.6 g/dL (2.7-4.3) H [facility] ALB/GLOB RATIO 0.6 RATIO [facility] BILIRUBIN,TOTAL 2.5 mg/dL (0.0-1.0) H [facility] PLEASE NOTE:Total bilirubin results may be falselyelevated in patients taking Eltrombopag. BILIRUBIN,CONJUGATED 1.0 mg/dL (0.0-0.3) H [facility] BILIRUBIN,UNCONJ. 1.5 mg/dL (0.0-0.7) H [facility] ALKALINE PHOSPHATASE 103 U/L (45-117) [facility] AST (SGOT) 45 U/L (11-39) H [facility] ALT (SGPT) 23 U/L (12-78) [facility] ID Date Data Source [id number] 12/04/2019 10:41:15 AM EDT [facility] Name Value Range Interpretation Code Description Data Debra rce(s) Supporting Document(s) LIPASE 91 U/L (65-230) [facility] ID Date Data Source [id number] 12/04/2019 10:41:15 AM EDT [facility] Name Value Range Interpretation Code Description Data Debra rce(s) Supporting Document(s) TROPONIN I <0.05 ng/mL (<0.05) [facility] [place] Less than 0.05: Myocardial injury unlike lyGreater than or equal to 0.05: Highly suggestive of myocardial injuryCorrelation with rise and/or fall ofserial troponins, clinical symptomsand ECG changes is necessary. ID Date Data Source [id number] 12/04/2019 10:41:15 AM EDT [facility] Name Value Range Interpretation Code Description Data Debra rce(s) Supporting Document(s) SODIUM 137 mmol/L (136-145) [facility] POTASSIUM 3.0 mmol/L (3.6-5.2) L [facility] CHLORIDE 98 mmol/L (100-108) L [facility] CO2 32 mmol/L (22-31) H [facility] ANION GAP 7 mmol/L (7-16) [facility] UREA NITROGEN 9 mg/dL (7-24) [facility] CREATININE 0.77 mg/dL (0.80-1.30) L [facility] BUN/CREAT RATIO 11.7 RATIO (10.0-20.0) [facility] GLUCOSE 142 mg/dL (70-99) H [facility] CALCIUM 8.9 mg/dL (8.4-10.2) [facility] GFR >60 ml/min/1.73m2 (>59) [facility] GFR ( AMER) >60 ml/min/1.73m2 (>59) [facility] [place] GFR INTERPRETATION [facility] [place] --NORMAL KIDNEY FUNCTION OR MILD DISEASE - GFR >OR= 60CHRONIC KIDNEY DISEASE - GFR 15 - 59RENAL FAILURE - GFR <15 Est. GFR calculation based on the MDRDstudy equation, which assumes a steadystate for creatinine. Est. GFR should notbe used for medication dosing. ID Date Data Source [id number] 12/04/2019 10:41:15 AM EDT [facility] Name Value Range Interpretation Code Description Data Debra rce(s) Supporting Document(s) NT PRO BNP 296 pg/mL (0-125) H [facility] ID Date Data Source [id number] 12/04/2019 10:34:37 AM EDT [facility] Name Value Range Interpretation Code Description Data Debra rce(s) Supporting Document(s) APTT 28.5 s (22.0-34.3) [facility] [place] PERFORMED AT [address] [facility] [address] ID Date Data Source [id number] 12/04/2019 10:34:37 AM EDT [facility] Name Value Range Interpretation Code Description Data Debra rce(s) Supporting Document(s) PT 13.7 s (9.2-11.9) H [facility] [place] PERFORMED AT [address] [facility] [address] INR 1.33 [facility] [place] SUGGESTED THERAPEUTIC RANGES USING INR F ORSTABILIZED ANTICOAGULATED PATIENTS:STANDARD DOSE THERAPY INR 2.0-3.0 DVT, PE, PREVENT DVT OR EMBOLISMHIGH DOSE THERAPY INR 2.5-3.5 PREVENT EMBOLISM FROM MECHANICAL HEART VALVE ID Date Data Source [id number] 12/04/2019 10:28:33 AM EDT [facility] Name Value Range Interpretation Code Description Data Debra rce(s) Supporting Document(s) AMMONIA 18 umol/L (11-32) [facility] [place] ID Date Data Source [id number] 12/04/2019 10:21:36 AM EDT [facility] Name Value Range Interpretation Code Description Data Debra rce(s) Supporting Document(s) WBC 11.0 10*3/uL (4.1-11.0) [facility] RBC 4.50 10*6/uL (4.60-6.10) L [facility] HGB 14.5 g/dL (13.5-18.0) [facility] HCT 42.4 % (41.0-53.0) [facility] MCV 94.3 fL (80.0-95.0) [facility] MCH 32.3 pg (27.0-32.0) H [facility] MCHC 34.2 g/dL (32.0-36.0) [facility] RDW 14.5 % (10.5-14.5) [facility] PLT 191 10*3/uL (150-450) [facility] MPV 8.8 fL (7.1-10.7) [facility] NEUT % 76.2 % (35.0-75.0) H [facility] LYMPH % 14.4 % (16.0-52.0) L [facility] MONO % 8.3 % (0.0-8.0) H [facility] EOS % 0.4 % (0.0-5.0) [facility] BASO % 0.7 % (0.0-4.0) [facility] NEUT # 8.4 10*3/uL (1.8-7.7) H [facility] LYMPH # 1.6 10*3/uL (1.2-4.8) [facility] MONO # 0.9 10*3/uL (0.0-0.8) H [facility] Eosinophils [#/volume] in Blood by Automated count 0.0 10*3/uL (0.0-0 .5) [facility] BASO # 0.1 10*3/uL (0.0-0.2) [facility] ID Date Data Source [id number] 12/04/2019 10:17:54 AM EDT [facility] Name Value Range Interpretation Code Description Data Debra rce(s) Supporting Document(s) HOLD TUBE PINK Lab [facility] [place] ID Date Data Source [id number] 12/07/2019 06:03:20 PM EDT [facility] LAB[facility] [address] [place], [place] [address]Qln# MISCELLANEOUS CYTOLOGY REPORTAccession #: [id number] [id number] Specimen(s): A: Peritoneal FluidClinical Diagnosis and History: Gross DescriptionPeritoneal Fluid: Received in 2 tubes TV 60 cc hazy yellow fluid. Final DiagnosisSpecimen AdequacySatisfactoryFinal DiagnosisNEGATIVE FOR MALIGNANCY Mesothelial cells and histiocytes..Processed and screened at Laboratory [facility],Cytology, [address] [place] [address], [facility].As applicable, positive and negative controls for all immunohistochemicaland/or special stains were reviewed and considered appropriate. Reported: 12/07/2019 18:02Electronically Signed Out By Lelo Jackson M.D.Pathology AssociatesCytotechnologist: Anahi DECKER([facility] [place] ICD Code: R18.8 CPT Code: A: 95381K Name Value Range Interpretation Code Description Data Debra rce(s) Supporting Document(s) ID Date Data Source [id number] 12/02/2019 12:00:00 AM EDT [facility] Katja Mccall Np Patient Name: MIKEY TAPIA [address] [facility] [place] [address] Date of Exam: 12/02/2019PH#: Fax: [phone] EXAM: [...] small and with a nodular surface. The cpsccvi-pv-rhrh lobe ofthe liver ratio is abnormal. There [...] Other findings as described above.Accredited by the [employer] in [place].HOA Vizcaino/Vik ibarra for referring MIKEY TAPIA to our office. Electronically Signed - SINAI LOWERY DO 12/02/19 16:35 Name Value Range Interpretation Code Description Data Debra rce(s) Supporting Document(s) ID Date Data Source [id number] 12/01/2019 11:50:00 AM EDT [facility] ([facility]) Name Value Range Interpretation Code Description Data Debra rce(s) Supporting Document(s) Hemoglobin A1c/Hemoglobin.total in Blood 7.6 Abnormal (applies to non-numeric results) Hgb A1c [facility] ([facility]) ID Date Data Source [id number] 12/01/2019 11:21:00 AM EDT [facility] ([facility] Name Value Range Interpretation Code Description Data Debra rce(s) Supporting Document(s) Hemoglobin A1c/Hemoglobin.total in Blood 7.6 [facility] ([facility]) ID Date Data Source [id number] 10/08/2019 12:00:00 AM EDT [facility] ([facility]) Name Value Range Interpretation Code Description Data Debra rce(s) Supporting Document(s) Hemoglobin A1c/Hemoglobin.total in Blood 11.4 Abnormal (applies to non-numeric results) Hgb A1c [facility] ([facility]) ID Date Data Source [id number] 10/07/2019 05:09:00 PM EDT ETHAN ([facility]) Name Value Range Interpretation Code Description Data Debra rce(s) Supporting Document(s) Amphetamines: negative Amphetamines: [facility]AN ([facility]) THC negative Thc [facility]) Barbiturates: negative Barbiturates: [facility] ([facility]) Cocaine: negative Cocaine: [facility] ([facility]) Opiates: negative Opiates: [facility] ([facility]) PCP negative Pcp ETHAN ([facility]) Benzodiazepines: negative Benzodiazepines: AT [facility] ([facility]) MTD negative Mtd [facility] ([facility]) Methamphetamine negative Methamphetamine ATHE NA ([facility]) OXY positive Oxy [facility] ([facility]) ID Date Data Source [id number] 10/07/2019 05:09:00 PM EDT [facility] ([facility]) Name Value Range Interpretation Code Description Data Debra rce(s) Supporting Document(s) Amphetamines: negative Amphetamines: ETHAN ([facility]) Cocaine: negative Cocaine: [facility] ([facility] THC negative Thc [facility] ([facility]) Opiates: negative Opiates: [facility] ([facility]) Barbiturates: negative Barbiturates: ETHAN ([facility]) Benzodiazepines: negative Benzodiazepines: AT JARRET ([facility]) PCP negative Pcp [facility]AN ([facility] Methamphetamine negative Methamphetamine ATHE NA ([facility]) MTD negative Mtd [facility] ([facility] OXY positive Oxy [facility] ([facility]) ID Date Data Source [id number] 10/07/2019 05:09:00 PM EDT [facility] ([facility]) Name Value Range Interpretation Code Description Data Debra rce(s) Supporting Document(s) Cocaine: negative Cocaine: [facility] ([facility]) Amphetamines: negative Amphetamines: ETHAN ([facility]) THC negative Thc [facility] ([facility]) Barbiturates: negative Barbiturates: ETHAN ([facility]) Opiates: negative Opiates: [facility] ([facility]) Benzodiazepines: negative Benzodiazepines: AT JARRET ([facility]) PCP negative Pcp [facility]AN ([facility] OXY positive Oxy [facility] ([facility]) MTD negative Mtd [facility] ([facility]) Methamphetamine negative Methamphetamine ATHE NA ([facility]) ID Date Data Source [id number] 10/07/2019 05:09:00 PM EDT [facility] ([facility]) Name Value Range Interpretation Code Description Data Debra rce(s) Supporting Document(s) Amphetamines: negative Amphetamines: ETHAN ([facility]) Opiates: negative Opiates: [facility] ([facility]) Cocaine: negative Cocaine: [facility] ([facility] THC negative Thc [facility] ([facility]) Barbiturates: negative Barbiturates: ETHAN ([facility]) Benzodiazepines: negative Benzodiazepines: AT J[facility] ([facility]) Methamphetamine negative Methamphetamine ATHE NA ([facility]) PCP negative Pcp [facility]AN ([facility]) OXY positive Oxy [facility] ([facility]) MTD negative Mtd [facility] ([facility]) ID Date Data Source [id number] 10/07/2019 05:09:00 PM EDT [facility] ([facility]) Name Value Range Interpretation Code Description Data Debra rce(s) Supporting Document(s) Amphetamines: negative Amphetamines: ETHAN ([facility]) THC negative Thc [facility] ([facility]) Opiates: negative Opiates: [facility] ([facility]) Barbiturates: negative Barbiturates: ETHAN ([facility]) Cocaine: negative Cocaine: [facility] ([facility]) Benzodiazepines: negative Benzodiazepines: AT JARRET ([facility]) PCP negative Pcp ETHAN ([facility] OXY positive Oxy [facility] ([facility]) MTD negative Mtd [facility] ([facility]) Methamphetamine negative Methamphetamine ATHE NA ([facility]) ID Date Data Source [id number] 10/07/2019 05:09:00 PM EDT [facility] ([facility]) Name Value Range Interpretation Code Description Data Debra rce(s) Supporting Document(s) Opiates: negative Opiates: [facility] ([facility]) Amphetamines: negative Amphetamines: ETHAN ([facility]) THC negative Thc [facility] ([facility]) Cocaine: negative Cocaine: [facility] ([facility]) Barbiturates: negative Barbiturates: ETHAN ([facility]) PCP negative Pcp [facility]AN ([facility]) Benzodiazepines: negative Benzodiazepines: AT JARRET ([facility]) Methamphetamine negative Methamphetamine ATHE NA ([facility]) OXY positive Oxy [facility] ([facility]) MTD negative Mtd [facility] ([facility]) ID Date Data Source [id number] 10/07/2019 05:09:00 PM EDT [facility] ([facility]) Name Value Range Interpretation Code Description Data Debra rce(s) Supporting Document(s) Amphetamines: negative Amphetamines: ETHAN ([facility]) Opiates: negative Opiates: [facility] ([facility]) THC negative Thc [facility] ([facility]) Cocaine: negative Cocaine: ETH[facility] ([facility]) Barbiturates: negative Barbiturates: ETHAN ([facility]) Methamphetamine negative Methamphetamine ATHE NA ([facility]) Benzodiazepines: negative Benzodiazepines: AT JARRET ([facility]) MTD negative Mtd [facility] ([facility]) PCP negative Pcp [facility]AN ([facility]) OXY positive Oxy [facility] ([facility]) ID Date Data Source [id number] 10/07/2019 05:09:00 PM EDT [facility] ([facility]) Name Value Range Interpretation Code Description Data Debra rce(s) Supporting Document(s) Amphetamines: negative Amphetamines: ETHAN ([facility]) Cocaine: negative Cocaine: [facility] ([facility]) Benzodiazepines: negative Benzodiazepines: AT JARRET ([facility]) THC negative Thc [facility] ([facility]) Opiates: negative Opiates: ETHAN ([facility]) Barbiturates: negative Barbiturates: ETHAN ([facility]) OXY positive Oxy [facility] ([facility]) Methamphetamine negative Methamphetamine ATHE NA ([facility]) MTD negative Mtd [facility] ([facility]) PCP negative Pcp ETHAN ([facility]) ID Date Data Source [id number] 10/07/2019 05:09:00 PM EDT [facility] ([facility]) Name Value Range Interpretation Code Description Data Debra rce(s) Supporting Document(s) THC negative Thc [facility] ([facility]) Amphetamines: negative Amphetamines: ETHAN ([facility]) Cocaine: negative Cocaine: [facility] ([facility]) Benzodiazepines: negative Benzodiazepines: AT JARRET ([facility]) Opiates: negative Opiates: ETHAN ([facility]) Barbiturates: negative Barbiturates: ETHAN ([facility]) PCP negative Pcp ETHAN ([facility]) Methamphetamine negative Methamphetamine ATHE NA ([facility]) MTD negative Mtd [facility] ([facility] OXY positive Oxy [facility] ([facility]) ID Date Data Source [id number] 10/07/2019 05:09:00 PM EDT [facility] ([facility]) Name Value Range Interpretation Code Description Data Debra rce(s) Supporting Document(s) Cocaine: negative Cocaine: ETHAN ([facility]) Amphetamines: negative Amphetamines: ETHAN ([facility]) THC negative Thc [facility] ([facility]) Barbiturates: negative Barbiturates: ETHAN ([facility]) Opiates: negative Opiates: ETHAN ([facility]) PCP negative Pcp [facility]AN ([facility]) Benzodiazepines: negative Benzodiazepines: AT JARRET ([facility]) MTD negative Mtd [facility] ([facility]) Methamphetamine negative Methamphetamine ATHE NA ([facility]) OXY positive Oxy [facility] ([facility]) ID Date Data Source [id number] 10/07/2019 12:00:00 AM EDT NATOMA ([facility]) Name Value Range Interpretation Code Description Data Debra rce(s) Supporting Document(s) Buprenorphine [Presence] in Urine by Confirmatory method <1 >=1 Buprenorphine Ur Ql [facility] ([facility]) Ethyl sulfate [Mass/volume] in Urine by Confirmatory method <200 >=200 Ethyl Sulfate Ur [facility] ([facility]) Ethyl glucuronide [Mass/volume] in Urine by Confirmatory method <50 0 >=500 Ethyl Glucuronide Ur [facility] ([facility]) alcohol metabolites ur ql cfm <200 >=200 Alcoho l Metabolites Ur Ql [facility] ([facility]) Tapentadol [Presence] in Urine by Confirmatory method <100 >=100 Tapentadol Ur Ql [facility] ([facility]) Benzodiazepines [Presence] in Urine by Confirmatory method <50 >=50 Benzodiaz Ur Ql [facility] ([facility]) Cocaine [Presence] in Urine by Confirmatory method <50 >=50 Bze Ur Ql [facility] ([facility]) Amphetamines [Presence] in Urine by Confirmatory method <0 >=0 Amphetamines Ur Ql [facility] ([facility]) gabapentinpregabalin ur ql cfm <5 >=5 Gabap entinpregabalin Ur Ql [facility] ([facility]) Opiates [Presence] in Urine by Confirmatory method >=100 >=1 00 Opiates Ur Ql [facility] ([facility]) Oxycodone [Mass/volume] in Urine by Confirmatory method 568 NG/mL >=100 Oxycodone Ur [facility] ([facility]) Oxymorphone [Mass/volume] in Urine by Confirmatory method 129 NG/mL >=100 Oxymorphone Ur [facility] ([facility]) Noroxycodone [Mass/volume] in Urine by Confirmatory method 401 NG/m L >=100 Noroxycodone Ur [facility] ([facility]) Methadone [Presence] in Urine by Confirmatory method <200 > =200 Methadone Ur Ql [facility] ([facility]) Fentanyl+Norfentanyl [Presence] in Urine by Confirmatory method <5 >=5 Fentanyl+norfentanyl Ur Ql [facility] ([facility]) Meperidine [Presence] in Urine by Confirmatory method <100 >=100 Meperidine Ur Ql [facility] ([facility]) 6-Monoacetylmorphine (6-ERIKA) [Presence] in Urine by Confirma tory method <10 >=10 6Mam Ur Ql [facility] ([facility]) pH of Urine 4.5 - 9.0 normal pH Ur [facility] ([facility]) Carisoprodol+Meprobamate [Presence] in Urine by Screen method <200 >=200 Carisoprodol+meprob Ur Ql Scn [facility] ([facility]) Cotinine [Presence] in Urine by Confirmatory method <125 >= 125 Cotinine Ur Ql [facility] ([facility]) Tramadol [Presence] in Urine by Confirmatory method <100 >= 100 Tramadol Ur Ql [facility] ([facility]) Creatinine [Mass/volume] in Urine 34.7 mg/dL 20 - [facility] ID Date Data Source [id number] 10/07/2019 12:00:00 AM EDT [facility] ([facility]) Name Value Range Interpretation Code Description Data Debra rce(s) Supporting Document(s) ID Date Data Source [id number] 10/07/2019 12:00:00 AM EDT [facility] ([facility]) Name Value Range Interpretation Code Description Data Debra rce(s) Supporting Document(s) ID Date Data Source [id number] 10/07/2019 12:00:00 AM EDT [facility] ([facility]) Name Value Range Interpretation Code Description Data Debra rce(s) Supporting Document(s) oxycodone ur CMP 1090 NG/mL >=100 Abnormal (applies to non -numeric results) Oxycodone Ur CMP [facility] ([facility]) ID Date Data Source [id number] 10/07/2019 12:00:00 AM EDT [facility] ([facility]) Name Value Range Interpretation Code Description Data Debra rce(s) Supporting Document(s) Buprenorphine [Presence] in Urine by Confirmatory method <1 >=1 Buprenorphine Ur Ql [facility] ([facility]) Ethyl sulfate [Mass/volume] in Urine by Confirmatory method <200 >=200 Ethyl Sulfate Ur [facility] ([facility]) alcohol metabolites ur ql cfm <200 >=200 Alcoho l Metabolites Ur Ql [facility] ([facility]) Ethyl glucuronide [Mass/volume] in Urine by Confirmatory method <50 0 >=500 Ethyl Glucuronide Ur [facility] ([facility]) Benzodiazepines [Presence] in Urine by Confirmatory method <50 >=50 Benzodiaz Ur Ql [facility] ([facility]) Tapentadol [Presence] in Urine by Confirmatory method <100 >=100 Tapentadol Ur Ql [facility] ([facility]) Amphetamines [Presence] in Urine by Confirmatory method <0 >=0 Amphetamines Ur Ql [facility] ([facility]) gabapentinpregabalin ur ql cfm <5 >=5 Gabap entinpregabalin Ur Ql [facility] ([facility]) Cocaine [Presence] in Urine by Confirmatory method <50 >=50 Bze Ur Ql [facility] ([facility]) Oxycodone [Mass/volume] in Urine by Confirmatory method 568 NG/mL >=100 Oxycodone Ur [facility] ([facility]) Oxymorphone [Mass/volume] in Urine by Confirmatory method 129 NG/mL >=100 Oxymorphone Ur [facility] ([facility]) Opiates [Presence] in Urine by Confirmatory method >=100 >=1 00 Opiates Ur Ql [facility] ([facility]) Methadone [Presence] in Urine by Confirmatory method <200 > =200 Methadone Ur Ql [facility] ([facility]) Noroxycodone [Mass/volume] in Urine by Confirmatory method 401 NG/m L >=100 Noroxycodone Ur [facility] ([facility]) 6-Monoacetylmorphine (6-ERIKA) [Presence] in Urine by Confirma tory method <10 >=10 6Mam Ur Ql [facility] ([facility]) Meperidine [Presence] in Urine by Confirmatory method <100 >=100 Meperidine Ur Ql [facility] ([facility]) Fentanyl+Norfentanyl [Presence] in Urine by Confirmatory method <5 >=5 Fentanyl+norfentanyl Ur Ql [facility] ([facility]) Tramadol [Presence] in Urine by Confirmatory method <100 >= 100 Tramadol Ur Ql [facility] ([facility]) Carisoprodol+Meprobamate [Presence] in Urine by Screen method <200 >=200 Carisoprodol+meprob Ur Ql Scn [facility] ([facility]) Cotinine [Presence] in Urine by Confirmatory method <125 >= 125 Cotinine Ur Ql [facility] ([facility]) pH of Urine 4.5 - 9.0 normal pH Ur [facility] ([facility]) Creatinine [Mass/volume] in Urine 34.7 mg/dL 20 - 370 normal Cr [facility] ([facility]) ID Date Data Source [id number] 10/07/2019 12:00:00 AM EDT [facility] ([facility]) Name Value Range Interpretation Code Description Data Debra rce(s) Supporting Document(s) ID Date Data Source [id number] 10/07/2019 12:00:00 AM EDT [facility] ([facility]) Name Value Range Interpretation Code Description Data Debra rce(s) Supporting Document(s) ID Date Data Source [id number] 10/07/2019 12:00:00 AM EDT [facility] ([facility]) Name Value Range Interpretation Code Description Data Debra rce(s) Supporting Document(s) oxycodone ur CMP 1090 NG/mL >=100 Abnormal (applies to non -numeric results) Oxycodone Ur CMP [facility] ([facility]) ID Date Data Source [id number] 10/07/2019 12:00:00 AM EDT [facility] ([facility]) Name Value Range Interpretation Code Description Data Debra rce(s) Supporting Document(s) alcohol metabolites ur ql [facility] <200 >=200 Alcoho l Metabolites Ur Ql [facility] ([facility]) Buprenorphine [Presence] in Urine by Confirmatory method <1 >=1 Buprenorphine Ur Ql [facility] ([facility]) Ethyl glucuronide [Mass/volume] in Urine by Confirmatory method <50 0 >=500 Ethyl Glucuronide Ur [facility] ([facility]) Benzodiazepines [Presence] in Urine by Confirmatory method <50 >=50 Benzodiaz Ur [facility] ([facility]) Amphetamines [Presence] in Urine by Confirmatory method <0 >=0 Amphetamines Ur [facility] ([facility]) Tapentadol [Presence] in Urine by Confirmatory method <100 >=100 Tapentadol Ur Ql [facility] ([facility]) Ethyl sulfate [Mass/volume] in Urine by Confirmatory method <200 >=200 Ethyl Sulfate Ur [facility] ([facility]) Cocaine [Presence] in Urine by Confirmatory method <50 >=50 Bze Ur Ql [facility] ([facility]) Oxycodone [Mass/volume] in Urine by Confirmatory method 568 NG/mL >=100 Oxycodone Ur [facility] ([facility]) Oxymorphone [Mass/volume] in Urine by Confirmatory method 129 NG/mL >=100 Oxymorphone Ur [facility] ([facility]) Opiates [Presence] in Urine by Confirmatory method >=100 >=1 00 Opiates Ur Ql [facility] ([facility]) gabapentinpregabalin ur ql cf <5 >=5 Gabap entinpregabalin Ur Ql [facility] ([facility]) Meperidine [Presence] in Urine by Confirmatory method <100 >=100 Meperidine Ur Ql [facility] ([facility]) Methadone [Presence] in Urine by Confirmatory method <200 > =200 Methadone Ur Ql [facility] ([facility]) Noroxycodone [Mass/volume] in Urine by Confirmatory method 401 NG/m L >=100 Noroxycodone Ur [facility] ([facility]) 6-Monoacetylmorphine (6-ERIKA) [Presence] in Urine by Confirma tory method <10 >=10 6Mam Ur Ql [facility] ([facility]) Tramadol [Presence] in Urine by Confirmatory method <100 >= 100 Tramadol Ur Ql [facility] ([facility]) Cotinine [Presence] in Urine by Confirmatory method <125 >= 125 Cotinine Ur Ql [facility] ([facility]) Carisoprodol+Meprobamate [Presence] in Urine by Screen method <200 >=200 Carisoprodol+meprob Ur Ql [facility] ([facility]) Fentanyl+Norfentanyl [Presence] in Urine by Confirmatory method <5 >=5 Fentanyl+norfentanyl Ur Ql [facility] ([facility]) pH of Urine 4.5 - 9.0 normal pH Ur [facility] ([facility]) Creatinine [Mass/volume] in Urine 34.7 mg/dL 20 - 370 normal Cr eat [facility] ([facility]) ID Date Data Source [id number] 10/07/2019 12:00:00 AM EDT [facility] ([facility]) Name Value Range Interpretation Code Description Data Debra rce(s) Supporting Document(s) ID Date Data Source [id number] 10/07/2019 12:00:00 AM EDT [facility] ([facility]) Name Value Range Interpretation Code Description Data Debra rce(s) Supporting Document(s) ID Date Data Source [id number] 10/07/2019 12:00:00 AM EDT [facility] ([facility]) Name Value Range Interpretation Code Description Data Debra rce(s) Supporting Document(s) oxycodone ur CMP 1090 NG/mL >=100 Abnormal (applies to non -numeric results) Oxycodone Ur CMP [facility] ([facility]) ID Date Data Source [id number] 10/07/2019 12:00:00 AM EDT [facility] ([facility]) Name Value Range Interpretation Code Description Data Debra rce(s) Supporting Document(s) Buprenorphine [Presence] in Urine by Confirmatory method <1 >=1 Buprenorphine Ur Ql [facility] ([facility]) Ethyl sulfate [Mass/volume] in Urine by Confirmatory method <200 >=200 Ethyl Sulfate Ur [facility] ([facility]) Ethyl glucuronide [Mass/volume] in Urine by Confirmatory method <50 0 >=500 Ethyl Glucuronide Ur [facility] ([facility]) alcohol metabolites ur ql cfm <200 >=200 Alcoho l Metabolites Ur Ql [facility] ([facility]) Amphetamines [Presence] in Urine by Confirmatory method <0 >=0 Amphetamines Ur Ql [facility] ([facility]) Tapentadol [Presence] in Urine by Confirmatory method <100 >=100 Tapentadol Ur Ql [facility] ([facility]) Cocaine [Presence] in Urine by Confirmatory method <50 >=50 Bze Ur Ql [facility] ([facility]) gabapentinpregabalin ur ql cfm <5 >=5 Gabap entinpregabalin Ur Ql [facility] ([facility]) Benzodiazepines [Presence] in Urine by Confirmatory method <50 >=50 Benzodiaz Ur Ql [facility] ([facility]) Opiates [Presence] in Urine by Confirmatory method >=100 >=1 00 Opiates Ur Ql [facility] ([facility]) 6-Monoacetylmorphine (6-ERIKA) [Presence] in Urine by Confirma tory method <10 >=10 6Mam Ur Ql [facility] ([facility]) Oxymorphone [Mass/volume] in Urine by Confirmatory method 129 NG/mL >=100 Oxymorphone Ur [facility] ([facility]) Oxycodone [Mass/volume] in Urine by Confirmatory method 568 NG/mL >=100 Oxycodone Ur [facility] ([facility]) Noroxycodone [Mass/volume] in Urine by Confirmatory method 401 NG/m L >=100 Noroxycodone Ur [facility] ([facility]) Methadone [Presence] in Urine by Confirmatory method <200 > =200 Methadone Ur Ql [facility] ([facility]) Fentanyl+Norfentanyl [Presence] in Urine by Confirmatory method <5 >=5 Fentanyl+norfentanyl Ur Ql [facility] ([facility]) Meperidine [Presence] in Urine by Confirmatory method <100 >=100 Meperidine Ur Ql [facility] ([facility]) Carisoprodol+Meprobamate [Presence] in Urine by Screen method <200 >=200 Carisoprodol+meprob Ur Ql [facility] ([facility]) Tramadol [Presence] in Urine by Confirmatory method <100 >= 100 Tramadol Ur Ql [facility] ([facility]) pH of Urine 4.5 - 9.0 normal pH Ur [facility] ([facility]) Cotinine [Presence] in Urine by Confirmatory method <125 >= 125 Cotinine Ur Ql [facility] ([facility]) Creatinine [Mass/volume] in Urine 34.7 mg/dL 20 - 370 [facility] ID Date Data Source [id number] 10/07/2019 12:00:00 AM EDT [facility] ([facility]) Name Value Range Interpretation Code Description Data Debra rce(s) Supporting Document(s) ID Date Data Source [id number] 10/07/2019 12:00:00 AM EDT [facility] ([facility]) Name Value Range Interpretation Code Description Data Debra rce(s) Supporting Document(s) ID Date Data Source [id number] 10/07/2019 12:00:00 AM EDT [facility] ([facility]) Name Value Range Interpretation Code Description Data Debra rce(s) Supporting Document(s) oxycodone ur CMP 1090 NG/mL >=100 Abnormal (applies to non -numeric results) Oxycodone Ur CMP [facility] ([facility]) ID Date Data Source [id number] 10/07/2019 12:00:00 AM EDT [facility] ([facility]) Name Value Range Interpretation Code Description Data Debra rce(s) Supporting Document(s) Ethyl glucuronide [Mass/volume] in Urine by Confirmatory method <50 0 >=500 Ethyl Glucuronide Ur [facility] ([facility]) alcohol metabolites ur ql cfm <200 >=200 Alcoho l Metabolites Ur Ql [facility] ([facility]) Buprenorphine [Presence] in Urine by Confirmatory method <1 >=1 Buprenorphine Ur Ql [facility] ([facility]) Benzodiazepines [Presence] in Urine by Confirmatory method <50 >=50 Benzodiaz Ur Ql [facility] ([facility]) Amphetamines [Presence] in Urine by Confirmatory method <0 >=0 Amphetamines Ur Ql [facility] ([facility]) Tapentadol [Presence] in Urine by Confirmatory method <100 >=100 Tapentadol Ur Ql [facility] ([facility]) Ethyl sulfate [Mass/volume] in Urine by Confirmatory method <200 >=200 Ethyl Sulfate Ur [facility] ([facility]) gabapentinpregabalin ur ql cfm <5 >=5 Gabap [facility]inpregabalin [facility] Oxymorphone [Mass/volume] in Urine by Confirmatory method 129 NG/mL >=100 Oxymorphone Ur [facility] ([facility]) Opiates [Presence] in Urine by Confirmatory method >=100 >=1 00 Opiates Ur Ql [facility] ([facility]) Oxycodone [Mass/volume] in Urine by Confirmatory method 568 NG/mL >=100 Oxycodone Ur [facility] ([facility]) Cocaine [Presence] in Urine by Confirmatory method <50 >=50 Bze Ur Ql [facility] ([facility]) 6-Monoacetylmorphine (6-ERIKA) [Presence] in Urine by Confirma tory method <10 >=10 6Mam Ur Ql [facility] ([facility]) Noroxycodone [Mass/volume] in Urine by Confirmatory method 401 NG/m L >=100 Noroxycodone Ur [facility] ([facility]) Meperidine [Presence] in Urine by Confirmatory method <100 >=100 Meperidine Ur Ql [facility] ([facility]) Methadone [Presence] in Urine by Confirmatory method <200 > =200 Methadone Ur Ql [facility] ([facility]) Fentanyl+Norfentanyl [Presence] in Urine by Confirmatory method <5 >=5 Fentanyl+norfentanyl Ur Ql [facility] ([facility]) Creatinine [Mass/volume] in Urine 34.7 mg/dL 20 - [facility] Tramadol [Presence] in Urine by Confirmatory method <100 >= 100 Tramadol Ur Ql [facility] ([facility]) Cotinine [Presence] in Urine by Confirmatory method <125 >= 125 Cotinine Ur Ql [facility] ([facility]) pH of Urine 4.5 - 9.0 normal pH Ur [facility] ([facility]) Carisoprodol+Meprobamate [Presence] in Urine by Screen method <200 >=200 Carisoprodol+meprob Ur Ql [facility] ([facility]) ID Date Data Source [id number] 10/07/2019 12:00:00 AM EDT [facility] ([facility]) Name Value Range Interpretation Code Description Data Debra rce(s) Supporting Document(s) ID Date Data Source [id number] 10/07/2019 12:00:00 AM EDT [facility] ([facility]) Name Value Range Interpretation Code Description Data Debra rce(s) Supporting Document(s) ID Date Data Source [id number] 10/07/2019 12:00:00 AM EDT [facility] ([facility]) Name Value Range Interpretation Code Description Data Debra rce(s) Supporting Document(s) oxycodone ur CMP 1090 NG/mL >=100 Abnormal (applies to non -numeric results) Oxycodone Ur CMP [facility] ([facility]) ID Date Data Source [id number] 10/07/2019 12:00:00 AM EDT [facility] ([facility]) Name Value Range Interpretation Code Description Data Debra rce(s) Supporting Document(s) alcohol metabolites ur ql cfm <200 >=200 Al[facility]o l Metabolites [facility] Buprenorphine [Presence] in Urine by Confirmatory method <1 >=1 Buprenorphine Ur Ql [facility] ([facility]) Amphetamines [Presence] in Urine by Confirmatory method <0 >=0 Amphetamines Ur Ql [facility] ([facility]) Tapentadol [Presence] in Urine by Confirmatory method <100 >=100 Tapentadol Ur Ql Cf [facility] ([facility]) Ethyl glucuronide [Mass/volume] in Urine by Confirmatory method <50 0 >=500 Ethyl Glucuronide Ur [facility] ([facility]) Ethyl sulfate [Mass/volume] in Urine by Confirmatory method <200 >=200 [facility] Benzodiazepines [Presence] in Urine by Confirmatory method <50 >=50 Benzodiaz Ur Ql Cf [facility] ([facility]) gabapentinpregabalin ur ql cf <5 >=5 Gabap entinpregabalin Ur Ql [facility] ([facility]) Opiates [Presence] in Urine by Confirmatory method >=100 >=1 00 Opiates Ur Ql [facility] ([facility]) Cocaine [Presence] in Urine by Confirmatory method <50 >=50 Bze Ur Ql [facility] ([facility]) Oxycodone [Mass/volume] in Urine by Confirmatory method 568 NG/mL >=100 Oxycodone Ur [facility] ([facility]) Noroxycodone [Mass/volume] in Urine by Confirmatory method 401 NG/m L >=100 Noroxycodone Ur [facility] ([facility]) Oxymorphone [Mass/volume] in Urine by Confirmatory method 129 NG/mL >=100 Oxymorphone Ur [facility] ([facility]) 6-Monoacetylmorphine (6-ERIKA) [Presence] in Urine by Confirma tory method <10 >=10 6Mam Ur Ql [facility] ([facility]) Meperidine [Presence] in Urine by Confirmatory method <100 >=100 Meperidine Ur Ql [facility] ([facility]) Methadone [Presence] in Urine by Confirmatory method <200 > =200 Methadone Ur Ql [facility] ([facility]) Cotinine [Presence] in Urine by Confirmatory method <125 >= 125 Cotinine Ur Ql [facility] ([facility]) Fentanyl+Norfentanyl [Presence] in Urine by Confirmatory method <5 >=5 Fentanyl+norfentanyl Ur Ql [facility] ([facility]) Carisoprodol+Meprobamate [Presence] in Urine by Screen method <200 >=200 Carisoprodol+meprob Ur Ql [facility] ([facility]) Tramadol [Presence] in Urine by Confirmatory method <100 >= 100 Tramadol Ur Ql [facility] ([facility]) pH of Urine 4.5 - 9.0 normal pH Ur [facility] ([facility]) Creatinine [Mass/volume] in Urine 34.7 mg/dL 20 - 370 normal Cr eat Ur-[facility] ([facility]) ID Date Data Source [id number] 10/07/2019 12:00:00 AM EDT [facility] ([facility]) Name Value Range Interpretation Code Description Data Debra rce(s) Supporting Document(s) ID Date Data Source [id number] 10/07/2019 12:00:00 AM EDT [facility] ([facility]) Name Value Range Interpretation Code Description Data Debra rce(s) Supporting Document(s) ID Date Data Source [id number] 10/07/2019 12:00:00 AM EDT [facility] ([facility]) Name Value Range Interpretation Code Description Data Debra rce(s) Supporting Document(s) oxycodone ur CMP 1090 NG/mL >=100 Abnormal (applies to non -numeric results) Oxycodone Ur CMP [facility] ([facility]) ID Date Data Source [id number] 10/07/2019 12:00:00 AM EDT [facility] ([facility]) Name Value Range Interpretation Code Description Data Debra rce(s) Supporting Document(s) Buprenorphine [Presence] in Urine by Confirmatory method <1 >=1 [facility] alcohol metabolites ur ql cfm <200 >=200 Alcoho l Metabolites Ur Ql Cf [facility] ([facility]) Ethyl glucuronide [Mass/volume] in Urine by Confirmatory method <50 0 >=500 Ethyl Glucuronide Ur [facility] ([facility]) Ethyl sulfate [Mass/volume] in Urine by Confirmatory method <200 >=200 Ethyl Sulfate Ur [facility] ([facility]) Amphetamines [Presence] in Urine by Confirmatory method <0 >=0 Amphetamines Ur Ql [facility] NAT[facility] ([facility]) Tapentadol [Presence] in Urine by Confirmatory method <100 >=100 Tapentadol Ur Ql [facility] ([facility]) Opiates [Presence] in Urine by Confirmatory method >=100 >=1 00 Opiates Ur Ql [facility] ([facility]) Benzodiazepines [Presence] in Urine by Confirmatory method <50 >=50 Benzodiaz Ur Ql [facility] ([facility]) gabapentinpregabalin ur ql [facility] <5 >=5 Gabap entinpregabalin Ur Ql [facility] ([facility]) Cocaine [Presence] in Urine by Confirmatory method <50 >=50 Bze Ur Ql [facility] ([facility]) Oxycodone [Mass/volume] in Urine by Confirmatory method 568 NG/mL >=100 Oxycodone Ur [facility] ([facility]) Noroxycodone [Mass/volume] in Urine by Confirmatory method 401 NG/m L >=100 Noroxycodone Ur [facility] ([facility]) Methadone [Presence] in Urine by Confirmatory method <200 > =200 Methadone Ur Ql [facility] ([facility]) Oxymorphone [Mass/volume] in Urine by Confirmatory method 129 NG/mL >=100 Oxymorphone Ur [facility] ([facility]) 6-Monoacetylmorphine (6-ERIKA) [Presence] in Urine by Confirma tory method <10 >=10 6Mam Ur Ql [facility] ([facility]) Fentanyl+Norfentanyl [Presence] in Urine by Confirmatory method <5 >=5 Fentanyl+norfentanyl Ur Ql [facility] ([facility]) Meperidine [Presence] in Urine by Confirmatory method <100 >=100 Meperidine Ur Ql [facility] ([facility]) Tramadol [Presence] in Urine by Confirmatory method <100 >= 100 Tramadol Ur Ql [facility] ([facility]) Carisoprodol+Meprobamate [Presence] in Urine by Screen method <200 >=200 Carisoprodol+meprob Ur Ql [facility] ([facility]) Creatinine [Mass/volume] in Urine 34.7 mg/dL 20 - 370 [facility] pH of Urine 4.5 - 9.0 normal pH Ur [facility] ([facility]) Cotinine [Presence] in Urine by Confirmatory method <125 >= 125 Cotinine Ur Ql [facility] ([facility]) ID Date Data Source [id number] 10/07/2019 12:00:00 AM EDT [facility] ([facility]) Name Value Range Interpretation Code Description Data Debra rce(s) Supporting Document(s) ID Date Data Source [id number] 10/07/2019 12:00:00 AM EDT ETH[facility] ([facility]) Name Value Range Interpretation Code Description Data Debra rce(s) Supporting Document(s) ID Date Data Source [id number] 10/07/2019 12:00:00 AM EDT ETH[facility] ([facility]) Name Value Range Interpretation Code Description Data Debra rce(s) Supporting Document(s) oxycodone ur CMP 1090 NG/mL >=100 Abnormal (applies to non -numeric results) Oxycodone Ur CMP ETHAN ([facility]) ID Date Data Source [id number] 10/07/2019 12:00:00 AM EDT ETH[facility] ([facility]) Name Value Range Interpretation Code Description Data Debra rce(s) Supporting Document(s) Buprenorphine [Presence] in Urine by Confirmatory method <1 >=1 Buprenorphine Ur Ql [facility] ([facility]) alcohol metabolites ur ql cfm <200 >=200 Alcoho l Metabolites Ur Ql Cfm ETHAN ([facility]) Ethyl glucuronide [Mass/volume] in Urine by Confirmatory method <50 0 >=500 Ethyl Glucuronide Ur Cf-nc ETHAN ([facility]) Ethyl sulfate [Mass/volume] in Urine by Confirmatory method <200 >=200 Ethyl Sulfate Ur [facility] ([facility]) Amphetamines [Presence] in Urine by Confirmatory method <0 >=0 Amphetamines Ur Ql [facility] ([facility]) Tapentadol [Presence] in Urine by Confirmatory method <100 >=100 Tapentadol Ur Ql [facility] ([facility]) Benzodiazepines [Presence] in Urine by Confirmatory method <50 >=50 Benzodiaz Ur Ql [facility] ([facility]) Opiates [Presence] in Urine by Confirmatory method >=100 >=1 00 Opiates Ur Ql [facility] ([facility]) gabapentinpregabalin ur ql [facility] <5 >=5 Gabap entinpregabalin Ur Ql [facility] ([facility]) Cocaine [Presence] in Urine by Confirmatory method <50 >=50 Bze Ur Ql [facility] ([facility]) Oxymorphone [Mass/volume] in Urine by Confirmatory method 129 NG/mL >=100 Oxymorphone Ur [facility] ([facility]) 6-Monoacetylmorphine (6-ERIKA) [Presence] in Urine by Confirma tory method <10 >=10 6Mam Ur Ql [facility] ([facility]) Noroxycodone [Mass/volume] in Urine by Confirmatory method 401 NG/m L >=100 Noroxycodone Ur [facility] ([facility]) Oxycodone [Mass/volume] in Urine by Confirmatory method 568 NG/mL >=100 Oxycodone Ur [facility] ([facility]) Methadone [Presence] in Urine by Confirmatory method <200 > =200 Methadone Ur Ql [facility] ([facility]) Meperidine [Presence] in Urine by Confirmatory method <100 >=100 Meperidine Ur Ql [facility] ([facility]) Fentanyl+Norfentanyl [Presence] in Urine by Confirmatory method <5 >=5 Fentanyl+norfentanyl Ur Ql [facility] ([facility]) Carisoprodol+Meprobamate [Presence] in Urine by Screen method <200 >=200 Carisoprodol+meprob Ur Ql [facility] ([facility]) Tramadol [Presence] in Urine by Confirmatory method <100 >= 100 Tramadol Ur Ql [facility] ([facility]) Cotinine [Presence] in Urine by Confirmatory method <125 >= 125 Cotinine Ur Ql [facility] ([facility]) Creatinine [Mass/volume] in Urine 34.7 mg/dL 20 - 370 normal Cr eat Ur-mcnc ETHAN ([facility]) pH of Urine 4.5 - 9.0 normal pH Ur [facility] ([facility]) ID Date Data Source [id number] 10/07/2019 12:00:00 AM EDT ETHAN ([facility]) Name Value Range Interpretation Code Description Data Debra rce(s) Supporting Document(s) ID Date Data Source [id number] 10/07/2019 12:00:00 AM EDT ETHAN ([facility]) Name Value Range Interpretation Code Description Data Debra rce(s) Supporting Document(s) ID Date Data Source [id number] 10/07/2019 12:00:00 AM EDT ETHAN ([facility]) Name Value Range Interpretation Code Description Data Debra rce(s) Supporting Document(s) oxycodone ur CMP 1090 NG/mL >=100 Abnormal (applies to non -numeric results) Oxycodone Ur CMP ETHAN ([facility]) ID Date Data Source [id number] 10/07/2019 12:00:00 AM EDT ETHAN ([facility]) Name Value Range Interpretation Code Description Data Debra rce(s) Supporting Document(s) oxycodone ur CMP 1090 NG/mL >=100 Abnormal (applies to non -numeric results) Oxycodone Ur CMP ETHAN ([facility]) ID Date Data Source [id number] 10/07/2019 12:00:00 AM EDT ETHAN ([facility]) Name Value Range Interpretation Code Description Data Debra rce(s) Supporting Document(s) Buprenorphine [Presence] in Urine by Confirmatory method <1 >=1 Buprenorphine Ur Ql [facility] ([facility]) alcohol metabolites ur ql cf <200 >=200 Alcoho l Metabolites Ur Ql [facility] ([facility]) Ethyl sulfate [Mass/volume] in Urine by Confirmatory method <200 >=200 Ethyl Sulfate Ur [facility] ([facility]) Ethyl glucuronide [Mass/volume] in Urine by Confirmatory method <50 0 >=500 Ethyl Glucuronide Ur [facility] ([facility]) Amphetamines [Presence] in Urine by Confirmatory method <0 >=0 Amphetamines Ur Ql [facility] ([facility]) gabapentinpregabalin ur ql [facility] <5 >=5 Gabap entinpregabalin Ur Ql [facility] ([facility]) Benzodiazepines [Presence] in Urine by Confirmatory method <50 >=50 Benzodiaz Ur Ql [facility] ([facility]) Tapentadol [Presence] in Urine by Confirmatory method <100 >=100 Tapentadol Ur Ql [facility] ([facility]) Cocaine [Presence] in Urine by Confirmatory method <50 >=50 Bze Ur Ql [facility] ([facility]) Oxymorphone [Mass/volume] in Urine by Confirmatory method 129 NG/mL >=100 Oxymorphone Ur [facility] ([facility]) Oxycodone [Mass/volume] in Urine by Confirmatory method 568 NG/mL >=100 Oxycodone Ur [facility] ([facility]) Opiates [Presence] in Urine by Confirmatory method >=100 >=1 00 Opiates Ur Ql [facility] ([facility]) Noroxycodone [Mass/volume] in Urine by Confirmatory method 401 NG/m L >=100 Noroxycodone Ur [facility] ([facility]) 6-Monoacetylmorphine (6-ERIKA) [Presence] in Urine by Confirma tory method <10 >=10 6Mam Ur Ql [facility] ([facility]) Methadone [Presence] in Urine by Confirmatory method <200 > =200 Methadone Ur Ql [facility] ([facility]) Meperidine [Presence] in Urine by Confirmatory method <100 >=100 Meperidine Ur Ql [facility] ETHAN ([facility]) Tramadol [Presence] in Urine by Confirmatory method <100 >= 100 Tramadol Ur Ql [facility]AN ([facility]) Fentanyl+Norfentanyl [Presence] in Urine by Confirmatory method <5 >=5 Fentanyl+norfentanyl Ur Ql [facility]AN ([facility]) Carisoprodol+Meprobamate [Presence] in Urine by Screen method <200 >=200 Carisoprodol+meprob Ur Ql [facility]AN ([facility]) Cotinine [Presence] in Urine by Confirmatory method <125 >= 125 Cotinine Ur Ql [facility] ([facility]) pH of Urine 4.5 - 9.0 normal pH Ur [facility] ([facility]) Creatinine [Mass/volume] in Urine 34.7 mg/dL 20 - 370 normal Cr eat Ur-mcnc ETHAN ([facility]) ID Date Data Source [id number] 10/07/2019 12:00:00 AM EDT ETHAN ([facility]) Name Value Range Interpretation Code Description Data Debra rce(s) Supporting Document(s) ID Date Data Source [id number] 10/07/2019 12:00:00 AM EDT ETHAN ([facility]) Name Value Range Interpretation Code Description Data Debra rce(s) Supporting Document(s) ID Date Data Source [id number] 09/21/2019 01:22:00 PM EST [facility] ([facility]) Name Value Range Interpretation Code Description Data Debra rce(s) Supporting Document(s) Thyroxine (T4) free [Mass/volume] in Serum or Plasma 1.25 ng/dL 0.89- 1.80 [facility] ([facility]) Please check methylmalonic acid and seru m protein electrophoresis with immunofixation Non Fasting Thyrotropin [Units/volume] in Serum or Plasma 2.375 mIU/ml 0.350-5.50 0 [facility] ([facility]) Please check methylmalonic acid and seru m protein electrophoresis with immunofixation Non Fasting Folate [Mass/volume] in Serum or Plasma 14.46 ng/mL 1.1-20.0 [facility] ([facility]) Please check methylmalonic acid and seru m protein electrophoresis with immunofixation Non Fasting Erythrocyte sedimentation rate by Westergren method 1 mm/hr 0-15 [facility] ([facility]) Please check methylmalonic acid and seru m protein electrophoresis with immunofixation Non Fasting Cobalamin (Vitamin B12) [Mass/volume] in Serum or Plasma 1474 pg /mL 211-911 Above high normal [facility] ([facility]) Please check methylmalonic acid and seru m protein electrophoresis with immunofixation Non Fasting C reactive protein [Mass/volume] in Serum or Plasma Laborato ry test result 0-1.0 [facility] ([facility]) Please check methylmalonic acid and seru m protein electrophoresis with immunofixation Non Fasting Rheumatoid factor [Units/volume] in Serum or Plasma 6.5 U/mL 0-13.9 9 [facility] ([facility]) Please check methylmalonic acid and seru m protein electrophoresis with immunofixation Non Fasting Nuclear Ab [Presence] in Serum Laboratory test result 0-0 [facility] ([facility]) Please check methylmalonic acid and seru m protein electrophoresis with immunofixation Non Fasting Beta 1 globulin [Mass/volume] in Serum or Plasma by Electrop horesis 0.5 g/dL 0.4-0.6 [facility] ([facility]) Please check methylmalonic acid and seru m protein electrophoresis with immunofixation Non Fasting Alpha 1 globulin/Protein.total in Serum or Plasma by Electro phoresis 0.3 g/dL 0.2-0.3 [facility] ([facility]) Please check methylmalonic acid and seru m protein electrophoresis with immunofixation Non Fasting Albumin [Mass/volume] in Serum or Plasma 3.8 g/dL 3.8-4.8 [facility] ([facility]) Please check methylmalonic acid and seru m protein electrophoresis with immunofixation Non Fasting Alpha 2 globulin/Protein.total in Serum or Plasma by Electro phoresis 0.6 g/dL 0.5-0.9 [facility] ([facility]) Please check methylmalonic acid and seru m protein electrophoresis with immunofixation Non Fasting Dxmo-7-Ynryymhskpvvp [Mass/volume] in Serum or Plasma 0.6 g/dL 0.2-0.5 Above high normal [facility] ([facility]) Please check methylmalonic acid and seru m protein electrophoresis with immunofixation Non Fasting Protein Fractions [Interpretation] in Serum or Plasma by Immunofixation Laboratory test result [facility] ([facility]) Serum immunofixation electrophoresis dem onstrates a faint band in IgM with no detectable corresponding light chains. Clinical correlation recommended for interpretation. Gamma globulin [Mass/volume] in Serum or Plasma by Electroph oresis 1.9 g/dL 0.8-1.7 Above high normal [facility] ([facility]) Please check methylmalonic acid and seru m protein electrophoresis with immunofixation Non Fasting Protein [Mass/volume] in Serum or Plasma 7.7 g/dL 6.1-8.1 [facility] ([facility]) Please check methylmalonic acid and seru m protein electrophoresis with immunofixation Non Fasting Methylmalonate [Moles/volume] in Serum or Plasma 170 nmol/L 87-318 [facility] ([facility]) See Note 1 Note 1 This test was developed and its analytical performance characteristics have been determined by [facility]. It has not been cleared or approved by the FDA. This assay has been validated pursuant to the CLIA regulations and is used for clinical purposes. Yktoy-2-Bnzopbfjtkn interpretation in Amniotic fluid Laboratory iwona t result [facility] ([facility]) Beta-2 globulin is increased. This lana cameron can be seen in inflammatory states. However, a monoclonal protein cannot be ruled out. Serum immunofixation is suggested if clinically indicated. Increase in gamma globulins is noted. Consider ordering immunoglobulin quantification to confirm. Venipuncture Laboratory test result MEDE NT ([facility]) Please check methylmalonic acid and seru m protein electrophoresis with immunofixation Non Fasting ID Date Data Source [id number] 09/23/2019 09:02:00 AM EST [employer] Received: 09/22/2019 at 03:03:00 QPT : [facility], [address], [address] [place], [address], Walt Guerrero MD Received: 09/22/2019 at 03:03:00 QPT : [facility], [address], [address] [place], [address], Walt Guerrero MD Received: 09/22/2019 at 03:03:00 QPT : [facility], [address], [address] [place], [address], Walt Guerrero MD Received: 09/22/2019 at 03:03:00 QPT : [facility], [address], [address] [place], [address], Walt Guerrero MD Name Value Range Interpretation Code Description Data Debra rce(s) Supporting Document(s) ID Date Data Source [id number] 09/23/2019 09:02:00 AM EST [facility] Received: 09/22/2019 at 03:03:00 QPT : [facility], [address], [address] [place] [address], [phone], Walt Guerrero MD Received: 09/22/2019 at 03:03:00 QPT : [facility], [address], [address] [place], [address], Walt Guerrero MD Received: 09/22/2019 at 03:03:00 QPT : [facility], [address], [address] [place], [address], Walt Guerrero MD Received: 09/22/2019 at 03:03:00 QPT : [facility], [address], [address] [place], [address]Walt MD Name Value Range Interpretation Code Description Data Debra rce(s) Supporting Document(s) Protein [Mass/volume] in Serum or Plasma 7.7 g/dL 6.1-8.1 Normal (applies to non-numeric results) [facility] ID Date Data Source [id number] 09/23/2019 09:02:00 AM EST [facility] Received: 09/22/2019 at 03:03:00 QPT : [facility], [address], [address] [place], [address], Walt Guerrero MD Received: 09/22/2019 at 03:03:00 QPT : [facility], [address], [address] [place], [address], Walt Guerrero MD Received: 09/22/2019 at 03:03:00 QPT : [facility], [address], [address] [place], [address], Walt Guerrero MD Received: 09/22/2019 at 03:03:00 QPT : [facility], [address], [address] [place], [address], Walt Guerrero MD Name Value Range Interpretation [...] quantification to confirm. ID Date Data Source [id number] 09/23/2019 09:02:00 AM EST [facility] Received: 09/22/2019 at 03:03:00 QPT : [facility], [address], [address] [place], [address], Walt Guerrero MD Received: 09/22/2019 at 03:03:00 QPT : [facility], [address], [address] [place], [address], Walt Guerrero MD Received: 09/22/2019 at 03:03:00 QPT : [facility], [address], [address] [place], [address], Walt Guerrero MD Received: 09/22/2019 at 03:03:00 QPT : [facility], [address], [address] [place], [address], Walt Guerrero MD Name Value Range Interpretation Code Description Data Debra rce(s) Supporting Document(s) Immunofixation for Serum or Plasma [facility] Serum immunofixation electrophoresis dem onstrates a faint band in IgMwith no detectable corresponding light chains. Clinical correlationrecommended for interpretation. ID Date Data Source [id number] 09/23/2019 09:02:00 AM EST [facility] Received: 09/22/2019 at 03:03:00 QPT : [facility], [address], [address] [place], [address]Walt MD Received: 09/22/2019 at 03:03:00 QPT : [facility], [address], [address] [place], [address]Walt MD Received: 09/22/2019 at 03:03:00 QPT : [facility], [address], [address] [place] [address], [phone] MD Received: 09/22/2019 at 03:03:00 QPT : [facility], [address], [address] [place], [address], Walt Guerrero MD Name Value Range Interpretation Code Description Data Debra rce(s) Supporting Document(s) Methylmalonate [Moles/volume] in Serum or Plasma 170 nmol/L 87-318 Normal (applies to non-numeric results) [facility] See Note 1Note 1This test was developed and its analytical performancecharacteristics have been determined by [employer]. It has not been cleared or approved by theFDA. This assay has been validated pursuant to the CLIAregulations and is used for clinical purposes. ID Date Data Source [id number] 09/16/2019 07:29:42 AM EST [facility] e and [facility], PCName: Bobby TapiaDOB: 2Provider: [...] (Z79.891) 4. 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 assisted (current) use of opiate analgesic (V58.69) (Z79.891) [...] 1 TO 2 TABLETS AT BEDTIME MDD:2;Therapy: [id number] to (Evaluate:[id number]) Requested for: [id number]; LastRx:[id number] Ordered Fish Oil CAPS;Therapy: (Recorded:24Nov2018) to Re [...] Status: Hold For - Scheduling Requested for: [id number] Appointment for 15 or 30 minutes : Schedule 15 minute appointmentSchedule With: : Aashish Forrestchedule : Follow-up in 2 months Medication:. NIMISHA MOBILE HOME SET UP PERSON Information: MOBILE HOME SET UP PERSON was consulted by my designee and I [...] months. I gave him the number to [facility]. He wrote down some [...] rce(s) Supporting Document(s) ID Date Data Source [id number] 09/03/2019 01:04:59 PM EST [facility], PCName: Bobby yeison WillieDOB: 2Provider: Mallory Forrest: 09/02/2019 Chief ComplaintChronic bilateral hand and feet neuropathy Chief Complaint 2Chronic low back pain [facility] VAS PAIN Established: AMISH completing [...] (Z79.891) 4. 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 assisted (current) use of opiate analgesic (V58.69) (Z79.891) [...] NO DRIVING WHILE USINGVALIUM MDD:3;Therapy: 31Aug2019 to (Evaluate:[id number]) Requested for: 31Aug2019; LastRx:31Aug2019 Ordered Fish Oil CAPS;Therapy: (Recorded:24Nov2018) to Recorded Methadone HCl - 5 MG Oral Tablet; TAKE 1 TABLET 3 times daily MDD:3;Therapy: 04Aug2019 to (Evaluate:[id number]) Requested for: 04Aug2019; LastRx:04Aug2019 OrderedLD 08/29/2019 Tarka [...] weeks Follow Up Follow-up Status: Complete Done: [id number] Appointment for 15 or 30 minutes : [...] agrees to discontinue medication and to contact [facility], friend(s) or family member(s), and/or [...] will continue with the following: NEUROLOGY. - ECOLOGICAL RISK ASSESSOR: The patient was counseled on the following: treatment plan and future treatment options (CONSIDER NEUROMODULATOR). Discussion/[id number] yr. old male who presents today complaints [...] ng) completed Never smoked tobacco (finding) [facility] Smoking 12/09/2019 12:00:00 AM EDT Patient has never smoked co mpleted Patient has never smoked [facility] ([facility]) Smoking 12/04/2019 03:25:00 PM EDT Denies Ever Smoked complete d Denies Ever Smoked [facility] Smoking 12/01/2019 12:00:00 AM EDT Never smoked tobacco (findi ng) completed Never smoked tobacco (finding) [place] ([facility]) Smoking 10/08/2019 12:00:00 AM EDT Never smoked tobacco (findi ng) completed Never smoked tobacco (finding) [facility] [facility] Assertion 10/08/2019 12:00:00 AM EDT Finding relat ing to drug misuse behavior (finding) completed Finding relating to drug misuse behavior (finding) [facility] Assertion 10/08/2019 12:00:00 AM EDT Current drinker of al cohol (finding) completed Current drinker of alcohol (finding) DEEDEE ([facility]) Smoking 09/07/2019 12:00:00 AM EST Never smoked tobacco (findi ng) completed Never smoked tobacco (finding) [facility] Vital Signs ID Date Data Source UNK Name Value Range Interpretation Code Description Data Source(s) Heart rate 78 /min 78 /min [facility] ([facility], [facility]) Diastolic blood pressure 76 mm[Hg] 76 mm[Hg] [facility] ([facility], [facility]) Systolic blood pressure 127 mm[Hg] 127 mm[Hg] M EDENT ([facility], [facility]) Body mass index (BMI) [Ratio] 25.5 kg/m2 25.5 k g/m2 [facility] ([facility]) Body height 72 [in_i] 72 [in_i] [facility] ([facility]) 6'0" Body weight 188.00 [lb_av] 188.00 [lb_av] MEDEN T ([facility]) Body temperature 98.7 [degF] 98.7 [degF] [facility] ([facility]) Oxygen saturation in Arterial blood by Pulse oximetry 99 % 99 % [facility] ([facility], [facility]) Respiratory rate 16 /min 16 /min [facility] ( [facility]) Systolic blood pressure 131 mm[Hg] 131 mm[Hg] A THENA ([facility]) Body height 72 [in_i] 72 [in_i] ETHAN ([facility]) Diastolic blood pressure 78 mm[Hg] 78 mm[Hg] ETHAN ([facility]) Body weight 90.720 kg 90.720 kg [facility] ([facility], ) [place] body weight 178 [lb_av] 178 [lb_av] MEDEN T ([facility], ) Body mass index (BMI) [Ratio] 27.1 kg/m2 27.1 k g/m2 [facility] ([facility], ) Body weight 200.00 [lb_av] 200.00 [lb_av] MEDEN T ([facility], ) Body height 72 [in_i] 72 [in_i] [facility] ([facility], ) 6'0" Systolic blood pressure 156 mm[Hg] 156 mm[Hg] A THENA ([facility]) Body height 72 [in_i] 72 [in_i] ETHAN ([facility]) Diastolic blood pressure 89 mm[Hg] 89 mm[Hg] ETHAN ([facility]) Systolic blood pressure 156 mm[Hg] 156 mm[Hg] A THENA ([facility]) Body height 72 [in_i] 72 [in_i] ETHAN ([facility]) Diastolic blood pressure 89 mm[Hg] 89 mm[Hg] ETHAN ([facility]) Systolic blood pressure 156 mm[Hg] 156 mm[Hg] A THENA ([facility]) Body height 72 [in_i] 72 [in_i] ETHAN ([facility]) Diastolic blood pressure 89 mm[Hg] 89 mm[Hg] ETHAN ([facility]) Body temperature 97.2 [degF] 97.2 [degF] MEDENT [...] 148 mm[Hg] A THENA ([facility]) Body height 72 [in_i] 72 [in_i] ETHAN ([facility]) Diastolic blood pressure 79 mm[Hg] 79 mm[Hg] ETHAN ([facility]) Systolic blood pressure 148 mm[Hg] 148 mm[Hg] A THENA ([facility]) Body height 72 [in_i] 72 [in_i] ETHAN ([facility]) Diastolic blood pressure 79 mm[Hg] 79 mm[Hg] ETHAN ([facility]) Systolic blood pressure 148 mm[Hg] 148 mm[Hg] A THENA ([facility]) Body height 72 [in_i] 72 [in_i] ETHAN ([facility]) Diastolic blood pressure 79 mm[Hg] 79 mm[Hg] ETHAN ([facility]) Systolic blood pressure 148 mm[Hg] 148 mm[Hg] A THENA ([facility]) Body height 72 [in_i] 72 [in_i] ETHAN ([facility]) Diastolic blood pressure 79 mm[Hg] 79 mm[Hg] ETHAN ([facility]) Diastolic blood pressure 68 mm[Hg] 68 mm[Hg] DEEDEE ([facility]) Systolic blood pressure 150 mm[Hg] 150 mm[Hg] G REENWAY ([facility]) Diastolic blood pressure 84 mm[Hg] 84 mm[Hg] DEEDEE ([facility]) repeat BP Systolic blood pressure 158 mm[Hg] 158 mm[Hg] G REENWAY ([facility]) repeat BP Inhaled oxygen concentration 21 % 21 % DEEDEE ([facility]) Inhaled oxygen flow rate 0 L/min 0 L/min DEEDEE ([facility]) Oxygen saturation in Arterial blood by Pulse oximetry 98 % 98 % DEEDEE ([facility]) PhenX - pain, abdominal - type and intensity protocol 7 7 DEEDEE ([facility]) Body surface area Derived from formula 2.19 m2 2.19 m2 DEEDEE ([facility]) Body mass index (BMI) [Ratio] 31.6 kg/m2 31.6 k g/m2 DEEDEE ([facility]) Body weight 222 [lb_av] 222 [lb_av] [facility] Body height 70.25 [in_i] 70.25 [in_i] DEEDEE ([facility]) Body temperature 96.9 [degF] 96.9 [degF] ROYALSTONW ([facility]) Respiratory rate 18 /min 18 /min DEEDEE ([facility]) Heart rate rhythm 1 1 GREENWA Y ([facility]) Heart rate 71 /min 71 /min DEEDEE ([facility]) Diastolic blood pressure 90 mm[Hg] 90 mm[Hg] DEEDEE ([facility]) Systolic blood pressure 164 mm[Hg] 164 mm[Hg] G KRISTY ([facility]) Body height 72 [in_i] 72 [in_i] ETHAN ([facility]) Body height 72 [in_i] 72 [in_i] ETHAN ([facility]) Body height 72 [in_i] 72 [in_i] ETHAN ([facility]) Body height 72 [in_i] 72 [in_i] ETHAN ([facility]) Body height 72 [in_i] 72 [in_i] ETHAN ([facility]) Body height 72 [in_i] 72 [in_i] ETHAN ([facility]) Body height 72 [in_i] 72 [in_i] ETHAN ([facility]) Diastolic blood pressure--sitting 78 mm[Hg] 78 mm[Hg] MEDENT ([facility]) [place] adult cuff, [place] Systolic blood pressure--sitting 151 mm[Hg] 151 mm[Hg] MEDENT ([facility] [place] adult cuff[place] Heart rate 87 /min 87 /min MEDENT ([facility] Body mass index (BMI) [Ratio] 30.0 kg/m2 30.0 k g/m2 MEDENT ([facility]) Body height 72 [in_i] 72 [in_i] MEDENT ([facility]) 6'0" Body weight 221.00 [lb_av] 221.00 [lb_av] MEDEN T ([facility]) Body temperature 36.9 jerilyn Normal (applies to non-numeric results) 36.9 jerilyn [facility] Respiratory rate 18 min Normal (applies to non-numeric results) 18 min [facility] Body height 182.88 cm Normal (applies to non-numeric resu lts) 182.88 cm [facility] Heart rate 83 min Normal (applies to non-numeric resul ts) 83 min [facility] Diastolic blood pressure 89 mm[Hg] Normal (applies to non-numeric results) 89 mm[Hg] [facility] Systolic blood pressure 156 mm[Hg] Normal (applies t o non-numeric results) 156 mm[Hg] [facility] Deprecated Oxygen saturation in Capillary blood by Oximetry 97 % Normal (applies to non-numeric results) 97 % [facility] Inhaled oxygen concentration 40 % Normal (appl ies to non-numeric results) 40 % [facility] Body mass index (BMI) [Ratio] 33.9 kg/m2 No rmal (applies to non-numeric results) 33.9 kg/m2 [facility] Body weight Measured 250 [lb_av] Normal (applies to n on-numeric results) 250 [lb_av] [facility] Diastolic blood pressure 88 mm[Hg] 88 mm[Hg] DEEDEE ([facility]) repeat BP Systolic blood pressure 164 mm[Hg] 164 mm[Hg] [facility] repeat BP Diastolic blood pressure 88 mm[Hg] 88 mm[Hg] DEEDEE ([facility]) repeat BP Systolic blood pressure 154 mm[Hg] 154 mm[Hg] [facility] repeat BP Inhaled oxygen concentration 21 % 21 % DEEDEE ([facility]) temperature taken by Murtaza Valladares LPN Inhaled oxygen flow rate 0 L/min 0 L/min DEEDEE ([facility]) temperature taken by Murtaza Valladares LPN Oxygen saturation in Arterial blood by Pulse oximetry 97 % 97 % LIBBY ([facility]) temperature taken by Murtaza Valladares LPN PhenX - pain, abdominal - type and intensity protocol 5 5 DEEDEE ([facility]) temperature taken by Murtaza Valladares LPN Body weight 257 [lb_av] 257 [lb_av] DEEDEE ([facility]) temperature taken by Murtaza Valladares LPN Body temperature 98.4 [degF] 98.4 [degF] [facility] ([facility]) temperature taken by Murtaza Valladares LPN Respiratory rate 18 /min 18 /min DEEDEE ([facility]) temperature taken by Murtaza Valladares LPN Heart rate rhythm 1 1 GREENWA Y ([facility]) temperature taken by Murtaza Valladares LPN Heart rate 91 /min 91 /min DEEDEE ([facility]) temperature taken by Murtaza Valladares LPN Diastolic blood pressure 92 mm[Hg] 92 mm[Hg] DEEDEE ([facility]) temperature taken by Murtaza Valladares LPN Systolic blood pressure 160 mm[Hg] 160 mm[Hg] G REENWAY ([facility]) temperature taken by Murtaza Valladares LPN Body weight 207 [lb_av] 207 [lb_av] ETHAN ([facility]) Systolic blood pressure 134 mm[Hg] 134 mm[Hg] A THENA ([facility]) Body mass index (BMI) [Ratio] 28.1 kg/m2 28.1 k g/m2 ETHAN ([facility]) Body height 72 [in_i] 72 [in_i] ETHAN ([facility]) Diastolic blood pressure 79 mm[Hg] 79 mm[Hg] ETHAN ([facility]) Body weight 207 [lb_av] 207 [lb_av] ETHAN ([facility]) Systolic blood pressure 134 mm[Hg] 134 mm[Hg] A THENA ([facility]) Body mass index (BMI) [Ratio] 28.1 kg/m2 28.1 k g/m2 ETHAN ([facility]) Body height 72 [in_i] 72 [in_i] ETHAN ([facility]) Diastolic blood pressure 79 mm[Hg] 79 mm[Hg] ETHAN ([facility]) Body weight 207 [lb_av] 207 [lb_av] ETHAN ([facility]) Systolic blood pressure 134 mm[Hg] 134 mm[Hg] A THENA ([facility]) Body mass index (BMI) [Ratio] 28.1 kg/m2 28.1 k g/m2 ETHAN ([facility]) Body height 72 [in_i] 72 [in_i] ETHAN ([facility]) Diastolic blood pressure 79 mm[Hg] 79 mm[Hg] ETHAN ([facility]) Body weight 207 [lb_av] 207 [lb_av] ETHAN ([facility]) Systolic blood pressure 134 mm[Hg] 134 mm[Hg] A THENA ([facility]) Body mass index (BMI) [Ratio] 28.1 kg/m2 28.1 k g/m2 ETHAN ([facility]) Body height 72 [in_i] 72 [in_i] ETHAN ([facility]) Diastolic blood pressure 79 mm[Hg] 79 mm[Hg] ETHAN ([facility]) Body weight 207 [lb_av] 207 [lb_av] ETHAN ([facility]) Systolic blood pressure 134 mm[Hg] 134 mm[Hg] A THENA ([facility]) Body mass index (BMI) [Ratio] 28.1 kg/m2 28.1 k g/m2 ETHAN ([facility]) Body height 72 [in_i] 72 [in_i] ETHAN ([facility]) Diastolic blood pressure 79 mm[Hg] 79 mm[Hg] ETHAN ([facility]) Body weight 207 [lb_av] 207 [lb_av] ETHAN ([facility]) Systolic blood pressure 134 mm[Hg] 134 mm[Hg] A THENA ([facility]) Body mass index (BMI) [Ratio] 28.1 kg/m2 28.1 k g/m2 ETHAN ([facility]) Body height 72 [in_i] 72 [in_i] ETHAN ([facility]) Diastolic blood pressure 79 mm[Hg] 79 mm[Hg] ETHAN ([facility]) Body weight 207 [lb_av] 207 [lb_av] ETHAN ([facility]) Systolic blood pressure 134 mm[Hg] 134 mm[Hg] A THENA ([facility]) Body mass index (BMI) [Ratio] 28.1 kg/m2 28.1 k g/m2 ETHAN ([facility]) Body height 72 [in_i] 72 [in_i] ETHAN ([facility]) Diastolic blood pressure 79 mm[Hg] 79 mm[Hg] ETHAN ([facility]) Body weight 207 [lb_av] 207 [lb_av] ETHAN ([facility]) Systolic blood pressure 134 mm[Hg] 134 mm[Hg] A THENA ([facility]) Body mass index (BMI) [Ratio] 28.1 kg/m2 28.1 k g/m2 ETHAN ([facility]) Body height 72 [in_i] 72 [in_i] ETHAN ([facility]) Diastolic blood pressure 79 mm[Hg] 79 mm[Hg] ETHAN ([facility]) Body weight 207 [lb_av] 207 [lb_av] ETHAN ([facility]) Systolic blood pressure 134 mm[Hg] 134 mm[Hg] A THENA ([facility]) Body mass index (BMI) [Ratio] 28.1 kg/m2 28.1 k g/m2 ETHAN ([facility]) Body height 72 [in_i] 72 [in_i] ETHAN ([facility]) Diastolic blood pressure 79 mm[Hg] 79 mm[Hg] ETHAN ([facility]) Body weight 207 [lb_av] 207 [lb_av] ETHAN ([facility]) Systolic blood pressure 134 mm[Hg] 134 mm[Hg] A THENA ([facility]) Body mass index (BMI) [Ratio] 28.1 kg/m2 28.1 k g/m2 ETHAN ([facility]) Body height 72 [in_i] 72 [in_i] ETHAN ([facility]) Diastolic blood pressure 79 mm[Hg] 79 mm[Hg] ETHAN ([facility]) Inhaled oxygen concentration 21 % 21 % DEEDEE ([facility] Inhaled oxygen flow rate 0 L/min 0 L/min DEEDEE ([facility]) Oxygen saturation in Arterial blood by Pulse oximetry 98 % 98 % DEEDEE ([facility]) PhenX - pain, abdominal - type and intensity protocol 9 9 DEEDEE ([facility]) Body weight 210 [lb_av] 210 [lb_av] DEEDEE ([facility]) Body temperature 97.2 [degF] 97.2 [degF] GREENW AY ([facility]) Respiratory rate 20 /min 20 /min DEEDEE ([facility]) Heart rate rhythm 1 1 GREENWA Y ([facility] Heart rate 84 /min 84 /min [facility] Diastolic blood pressure 78 mm[Hg] 78 mm[Hg] DEEDEE ([facility]) Systolic blood pressure 130 mm[Hg] 130 mm[Hg] G REENWAY ([facility] Body weight 207 [lb_av] 207 [lb_av] ETHAN ([facility]) Systolic blood pressure 121 mm[Hg] 121 mm[Hg] A THENA ([facility]) Body mass index (BMI) [Ratio] 28.1 kg/m2 28.1 k g/m2 ETHAN ([facility]) Body height 72 [in_i] 72 [in_i] ETHAN ([facility]) Diastolic blood pressure 79 mm[Hg] 79 mm[Hg] ETHAN ([facility]) Body weight 207 [lb_av] 207 [lb_av] ETHAN ([facility]) Systolic blood pressure 121 mm[Hg] 121 mm[Hg] A THENA ([facility]) Body mass index (BMI) [Ratio] 28.1 kg/m2 28.1 k g/m2 ETHAN ([facility]) Body height 72 [in_i] 72 [in_i] ETHAN ([facility]) Diastolic blood pressure 79 mm[Hg] 79 mm[Hg] ETHAN ([facility]) Body weight 207 [lb_av] 207 [lb_av] ETHAN ([facility]) Systolic blood pressure 121 mm[Hg] 121 mm[Hg] A THENA ([facility]) Body mass index (BMI) [Ratio] 28.1 kg/m2 28.1 k g/m2 ETHAN ([facility]) Body height 72 [in_i] 72 [in_i] ETHAN ([facility]) Diastolic blood pressure 79 mm[Hg] 79 mm[Hg] ETHAN ([facility]) Body weight 207 [lb_av] 207 [lb_av] ETHAN ([facility]) Systolic blood pressure 121 mm[Hg] 121 mm[Hg] A THENA ([facility]) Body mass index (BMI) [Ratio] 28.1 kg/m2 28.1 k g/m2 ETHAN ([facility]) Body height 72 [in_i] 72 [in_i] ETHAN ([facility]) Diastolic blood pressure 79 mm[Hg] 79 mm[Hg] ETHAN ([facility]) Body weight 207 [lb_av] 207 [lb_av] ETHAN ([facility]) Systolic blood pressure 121 mm[Hg] 121 mm[Hg] A THENA ([facility]) Body mass index (BMI) [Ratio] 28.1 kg/m2 28.1 k g/m2 ETHAN ([facility]) Body height 72 [in_i] 72 [in_i] ETHAN ([facility]) Diastolic blood pressure 79 mm[Hg] 79 mm[Hg] ETHAN ([facility]) Body weight 207 [lb_av] 207 [lb_av] ETHAN ([facility]) Systolic blood pressure 121 mm[Hg] 121 mm[Hg] A THENA ([facility]) Body mass index (BMI) [Ratio] 28.1 kg/m2 28.1 k g/m2 ETHAN ([facility]) Body height 72 [in_i] 72 [in_i] ETHAN ([facility]) Diastolic blood pressure 79 mm[Hg] 79 mm[Hg] ETHAN ([facility]) Body weight 207 [lb_av] 207 [lb_av] ETHAN ([facility]) Systolic blood pressure 121 mm[Hg] 121 mm[Hg] A THENA ([facility]) Body mass index (BMI) [Ratio] 28.1 kg/m2 28.1 k g/m2 ETHAN ([facility]) Body height 72 [in_i] 72 [in_i] ETHAN ([facility]) Diastolic blood pressure 79 mm[Hg] 79 mm[Hg] ETHAN ([facility]) Body weight 207 [lb_av] 207 [lb_av] ETHAN ([facility]) Systolic blood pressure 121 mm[Hg] 121 mm[Hg] A THENA ([facility]) Body mass index (BMI) [Ratio] 28.1 kg/m2 28.1 k g/m2 ETHAN ([facility]) Body height 72 [in_i] 72 [in_i] ETHAN ([facility]) Diastolic blood pressure 79 mm[Hg] 79 mm[Hg] ETHAN ([facility]) Body weight 207 [lb_av] 207 [lb_av] ETHAN ([facility]) Systolic blood pressure 121 mm[Hg] 121 mm[Hg] A THENA ([facility]) Body mass index (BMI) [Ratio] 28.1 kg/m2 28.1 k g/m2 ETHAN ([facility]) Body height 72 [in_i] 72 [in_i] ETHAN ([facility]) Diastolic blood pressure 79 mm[Hg] 79 mm[Hg] ETHAN ([facility]) Body weight 207 [lb_av] 207 [lb_av] ETHAN ([facility]) Systolic blood pressure 121 mm[Hg] 121 mm[Hg] A THENA ([facility]) Body mass index (BMI) [Ratio] 28.1 kg/m2 28.1 k g/m2 ETHAN ([facility]) Body height 72 [in_i] 72 [in_i] ETHAN ([facility]) Diastolic blood pressure 79 mm[Hg] 79 mm[Hg] ETHAN ([facility]) Body weight 207 [lb_av] 207 [lb_av] ETHAN ([facility]) Systolic blood pressure 121 mm[Hg] 121 mm[Hg] A THENA ([facility]) Body mass index (BMI) [Ratio] 28.1 kg/m2 28.1 k g/m2 ETHAN ([facility]) Body height 72 [in_i] 72 [in_i] ETHAN ([facility]) Diastolic blood pressure 79 mm[Hg] 79 mm[Hg] ETHAN ([facility]) Respiratory rate 16 /min 16 /min MEDENT ( [facility]) Heart rate 118 /min 118 /min MEDENT ([facility]) Diastolic blood pressure 86 mm[Hg] 86 mm[Hg] MEDENT ([facility]) Systolic blood pressure 128 mm[Hg] 128 mm[Hg] M EDENT ([facility]) Body mass index (BMI) [Ratio] 27.8 kg/m2 27.8 k g/m2 MEDENT ([facility]) Body weight 205.00 [lb_av] 205.00 [lb_av] MEDEN T ([facility]) Body height 72 [in_i] 72 [in_i] MEDENT ([facility]) 6'0" Inhaled oxygen concentration 21 % 21 % LIBBY ([facility]) Inhaled oxygen flow rate 0 L/min 0 L/min LIBBY ([facility]) Oxygen saturation in Arterial blood by Pulse oximetry 96 % 96 % LIBBY ([facility]) PhenX - pain, abdominal - type and intensity protocol 8 8 LIBBY ([facility]) Body weight 207 [lb_av] 207 [lb_av] [facility] Body temperature 98.3 [degF] 98.3 [degF] [facility] ([facility]) Respiratory rate 22 /min 22 /min LIBBY ([facility]) Heart rate 107 /min 107 /min LIBBY ([facility]) Diastolic blood pressure 94 mm[Hg] 94 mm[Hg] LIBBY ([facility]) Systolic blood pressure 146 mm[Hg] 146 mm[Hg] [facility] Patient Treatment Plan of Care Planned Activity Planned Date Details Description Data Source (s) Hydrochlorothiazide 12.5 MG Oral Tablet 05/05/2020 12:00:00 AM [facility] ([facility]) 24 HR trandolapril 4 MG / Verapamil hydr ochloride 240 MG Extended Release Oral Tablet [Tarka] 05/05/2020 12:00:[address] [facility] ([facility]) Hydrochlorothiazide 12.5 MG Oral Tablet 12/01/2019 12:00:00 AM [facility] ([facility]) glimepiride 2 MG Oral Tablet 10/08/2019 12:00:00 AM [facility] ([facility]) Clonidine Hydrochloride 0.1 MG Oral Tablet 09/08/2019 12:00:[address] [place] ([facility]) Ondansetron 4 MG Disintegrating Oral Tablet 09/08/2019 12:00:00 AM EST [facility] ([facility]) Hydrochlorothiazide 12.5 MG Oral Tablet 01/15/2019 12:00:00 AM [facility] ([facility]) 24 HR trandolapril 4 MG / Verapamil hydr ochloride 240 MG Extended Release Oral Tablet [Tarka] 01/15/2019 12:00:[address] [facility] ([facility]) Mupirocin 0.02 MG/MG Topical Ointment 01/14/2019 12:00:00 AM EDT DEEDEE ([facility] Methadone Hydrochloride 10 MG Oral Tablet 10/31/2018 12:00:00 AM ED T DEEDEE ([facility]) 24 HR Metformin hydrochloride 500 MG Extended Release Oral Tablet 10/01/2018 12:00:00 AM EST DEEDEE ([facility]) Capsaicin 0.25 MG/ML Topical Cream 10/01/2018 12:00:00 AM EST DEEDEE ([facility]) Fish Oil 1000 MG OR CAPS 02/09/2011 12:00:00 AM EDT DEEDEE ([facility]) Spironolactone 100 MG Oral Tablet ETHAN ([facility]) 12 HR Oxycodone Hydrochloride 10 MG Extended Release Oral Ta blet [Oxycontin] ETHAN ([facility]) Morphine Sulfate 15 MG Extended Release Oral Tablet ETHAN ([facility]) Methadone Hydrochloride 5 MG Oral Tablet ETHAN ([facility]) Methadone Hydrochloride 10 MG Oral Tablet ETHAN ([facility]) glimepiride 2 MG Oral Tablet ETHAN ([facility]) duloxetine 30 MG Delayed Release Oral Capsule ETHAN ([facility]) doxycycline hyclate 100 MG Oral Capsule ETHAN ([facility]) Diazepam 5 MG Oral Tablet AT JARRET ([facility]) Aspirin 81 MG Chewable Tablet ETHAN ([facility]) 24 HR trandolapril 4 MG / Verapamil hydr ochloride 240 MG Extended Release Oral Tablet ETHAN ([facility] Spironolactone 100 MG Oral Tablet ETHAN ([facility]) 12 HR Oxycodone Hydrochloride 10 MG Extended Release Oral Ta blet [Oxycontin] ETHAN ([facility]) Morphine Sulfate 15 MG Extended Release Oral Tablet ETHAN ([facility]) Methadone Hydrochloride 5 MG Oral Tablet ETHAN ([facility]) Methadone Hydrochloride 10 MG Oral Tablet ETHAN ([facility]) glimepiride 2 MG Oral Tablet ETHAN ([facility]) duloxetine 30 MG Delayed Release Oral Capsule ETHAN ([facility]) doxycycline hyclate 100 MG Oral Capsule ETHAN ([facility]) Diazepam 5 MG Oral Tablet AT JARRET ([facility]) Aspirin 81 MG Chewable Tablet ETHAN ([facility]) Methadone Hydrochloride 5 MG Oral Tablet ETHAN ([facility]) Methadone Hydrochloride 10 MG Oral Tablet ETHAN ([facility]) Diazepam 5 MG Oral Tablet AT JARRET ([facility]) Methadone Hydrochloride 5 MG Oral Tablet ETHAN ([facility]) Methadone Hydrochloride 10 MG Oral Tablet ETHAN ([facility]) Diazepam 5 MG Oral Tablet AT JARRET ([facility]) Methadone Hydrochloride 5 MG Oral Tablet ETHAN ([facility]) Methadone Hydrochloride 10 MG Oral Tablet ETHAN ([facility]) Diazepam 5 MG Oral Tablet AT JARRET ([facility]) Diazepam 5 MG Oral Tablet AT JARRET ([facility]) Diazepam 5 MG Oral Tablet AT JARRET ([facility]) Diazepam 5 MG Oral Tablet AT JARRET ([facility]) 168 HR Buprenorphine 0.005 MG/HR Transdermal Patch ETHAN ([facility]) Amitriptyline Hydrochloride 25 MG Oral Tablet ETHAN ([facility]) Diazepam 5 MG Oral Tablet AT JARRET ([facility]) 168 HR Buprenorphine 0.005 MG/HR Transdermal Patch ETHAN ([facility]) Amitriptyline Hydrochloride 25 MG Oral Tablet ETHAN ([facility]) Diazepam 5 MG Oral Tablet AT JARRET ([facility]) Amitriptyline Hydrochloride 25 MG Oral Tablet ETHAN ([facility]) Diazepam 5 MG Oral Tablet AT JARRET ([facility]) Amitriptyline Hydrochloride 25 MG Oral Tablet ETHAN ([facility])
--- NOTE | 2020-09-16 19:40 | HPEPDOC ---
[facility] Medical History & Physical Date of Admission Sep 16, 2020 Date of Service: Sep 16, 2020 Attending Physician: AVELINO MAY MD History and Physical CHIEF COMPLAINT: Hypotension HISTORY OF PRESENT ILLNESS: 70-year-old male with past medical history of hypertension and liver cirrhosis presents from home with hypotension. Patient had a phone visit with his primary care physician and was experiencing dizziness and lightheadedness. She asked him to check his blood pressure and was apparently low and told him to come to the hospital. Patient resting comfortably at this time, denies any dizziness or lightheadedness currently. He has remained slightly hypotensive in the emergency department, but it asymptomatic. He reports diarrhea due to lactulose but denies decreased oral intake or change in urination. He has continued taking all of his medications as prescribed. He denies any shortness of breath, chest pain, nausea, vomiting or abdominal pain. 10 point review of system is negative so for above PAST MEDICAL HISTORY: 1. Cirrhosis. 2. Hypertension. PAST SURGICAL HISTORY: 1. Cholecystectomy. SOCIAL HISTORY: Previous smoker. Denies alcohol use. Denies drug use FAMILY HISTORY: Father had esophageal cancer ALLERGIES: Please see below. HOME MEDICATIONS: Please see below. PHYSICAL EXAMINATION: VITAL SIGNS: Please see below. GENERAL: No distress HEENT: Normocephalic, atraumatic, moist mucous membranes NECK: Supple CARDIOVASCULAR EXAMINATION: S1, S2, no murmurs RESPIRATORY EXAMINATION: Diminished in the bases, no wheezing ABDOMINAL EXAMINATION: Soft, nontender, nondistended, positive bowel sounds EXTREMITIES: Trace edema SKIN: Intact NEUROLOGICAL EXAMINATION: Alert and oriented 3, no focal deficits PSYCHIATRIC EXAMINATION: Calm and cooperative LABORATORY DATA: See below. IMAGING: . Chest x-ray without acute pathology MICROBIOLOGY: Please see below. ASSESSMENT: 70-year-old male with past medical history of cirrhosis and hypertension is admitted for acute kidney injury and hypotension. . PLAN: 1. Acute kidney injury. Etiology unclear, probably prerenal, given GI losses and diuretic use. Possibly hepatorenal syndrome, although less likely. Renal ultrasound and urine studies ordered. Gentle IV hydration. Hold diuretics and lactulose. 2. Cirrhosis. Moreno, stable, will monitor. 3. Hypotension Possibly related to intravascular volume depletion, hemodynamically stable and asymptomatic at this time, gentle IV hydration. 4. Hyponatremia Likely due to cirrhosis and thiazide diuretic. Mild, will monitor. DVT prophylaxis: Heparin subcutaneous. GI prophylaxis: Not needed Vital Signs Vital Signs Date Time Temp Pulse Resp B/P (MAP) Pulse Ox O2 Delivery O2 Flow Rate FiO2 09/16/20 15:00 09/16/20 15:00 63 16 97 Room Air 09/16/20 14:32 97.3 Laboratory Data Labs 24H Laboratory Tests 2 09/16/20 15:02: Immature Granulocyte % (Auto) 1.1, Neutrophils (%) (Auto) 69.6H, Lymphocytes (%) (Auto) 16.5L, Monocytes (%) (Auto) 10.0H, Eosinophils (%) (Auto) 1.8, Basophils (%) (Auto) 1.0, Neutrophils # (Auto) 7.8, Lymphocytes # (Auto) 1.8, Monocytes # (Auto) 1.1H, Eosinophils # (Auto) 0.2, Basophils # (Auto) 0.1, Nucleated Red Blood Cells % (auto) 0.0, Prothrombin Time 15.5H, Prothromb Time International Ratio 1.20, Anion Gap 7L, Glomerular Filtration Rate 28.1L, Calcium Level 9.4, Magnesium Level 1.8, Total Creatine Kinase 138, Creatine Kinase MB 2.8, Creatine Kinase MB Relative Index 2.03, Troponin I < 0.02, Thyroid Stimulating Hormone (TSH) 3.030, Free Thyroxine 1.20, Ethyl Alcohol Level < 0.003 09/16/20 17:51: Urine Opiates Screen POSITIVEH, Urine Methadone Screen NEGATIVE, Urine Barbitur ates Screen NEGATIVE, Urine Phencyclidine Screen NEGATIVE, Urine Amphetamines Screen NEGATIVE, Urine Benzodiazepines Screen NEGATIVE, Urine Cocaine Metabolite Screen NEGATIVE, Urine Cannabinoids Screen NEGATIVE CBC/BMP Laboratory Tests 09/16/20 15:02 Microbiology Microbiology 09/16/20 Respiratory Virus Panel (PCR) ([facility]) - Final, Complete Home Medications Scheduled Duloxetine Hcl (Duloxetine HCl) 20 Mg Capsule.dr, 20 MG PO QHS Hydrochlorothiazide (Hydrochlorothiazide) 12.5 Mg Tablet, 12.5 MG PO QHS Multivit-Min/Folic/Vit K/Lycop (Men's 50 Plus Multivitamin Tab) 1 Each Tablet, 1 TAB PO QHS Spironolactone (Spironolactone) 50 Mg Tablet, 50 MG PO BID Tamsulosin Hcl (Tamsulosin HCl) 0.4 Mg Capsule, 0.4 MG PO QHS Tizanidine HCl (Tizanidine HCl) 4 Mg Tablet, 4 MG PO QHS Trandolapril/Verapamil HCl (Trandolapr-Verapam ER 4-240 mg) 1 Each Tab.bp.24h, 1 TAB PO QHS Scheduled PRN Oxycodone HCl (Oxycodone HCl) 10 Mg Tablet, 10 MG PO QID PRN for PAIN Allergies Coded Allergies: No Known Allergies (Verified Allergy, Unknown, 09/05/20) A-FIB/CHADSVASC A-FIB History Current/History of A-Fib/PAF?: No AVELINO MAY MD Sep 16, 2020 19:40
[2020-09-16 19:43] LABS: APPEARANCE, URINE CLEAR (CLEAR); BACTERIA, URINE AUTO NEGATIVE (NEGATIVE); BILIRUBIN, URINE AUTO NEGATIVE (NEGATIVE); BLOOD, URINE BLOOD NEGATIVE (NEGATIVE); COLOR, URINE YELLOW (YELLOW); GLUCOSE, URINE (UA) AUTO 3+ mg/dL (NEGATIVE); KETONE, URINE AUTO NEGATIVE (NEGATIVE); LEUKOCYTE ESTERASE, URINE AUTO NEGATIVE (NEGATIVE); NITRITE, URINE AUTO NEGATIVE (NEGATIVE); PROTEIN, URINE AUTO NEGATIVE (NEGATIVE); RBC, URINE AUTO 0 /HPF (0-3); SPECIFIC GRAVITY URINE AUTO 1.011 (1.002-1.035); SQUAMOUS EPITHELIAL CELL UR AU 0 /HPF (0-6); UROBILINOGEN, URINE AUTO 0.2 mg/dL (0.0-2.0); WBC, URINE AUTO 1 /HPF (0-3)
--- NOTE | 2020-09-16 19:59 | REPVR ---
PROCEDURE INFORMATION: Exam: US Retroperitoneal Limited, Kidneys Exam date and time: 09/16/2020 7:44 PM Age: 70 years old Clinical indication: Abnormal findings; Abnormal lab test; Abnormal kidney function lab tests; Additional info: R/O obstruction, damian TECHNIQUE: Imaging protocol: Real-time ultrasound of the retroperitoneum with image documentation. Examination was focused on the kidneys. COMPARISON: [facility] US 09/06/2020 12:45 PM FINDINGS: Right kidney: No stones. No hydronephrosis. Left kidney: Simple cyst measuring 2.5 cm x 1.7 cm x 2.2 cm within the left kidney lower pole. No left renal stone or hydronephrosis. Intraperitoneal space: Trace ascites within the right upper quadrant. Bladder: Limited evaluation of the urinary bladder is unremarkable. The left ureteral jet is visualized. The right ureteral jet is not seen at the time of the examination. IMPRESSION: 1. Trace ascites within the right upper quadrant. 2. Left renal cyst. Electronically signed by: León Perez On 09/16/2020 19:59:18 PM
[2020-09-16 20:00] LABS: CREATININE,RANDOM URINE 83.1 MG/DL; SODIUM,RANDOM URINE 58 MEQ/L
[2020-09-16] MEDS: NS 1,000 ML IV SCH (20:06)
[2020-09-16] MEDS: HEPARIN SOD (PORCINE) 5000UNITS/ML 1ML VIAL/SYRINGE SC SCH (21:00)
[2020-09-16 22:37] VITALS: BP_SYST 108; BP_SYST 129; BP_DIAS 57; BP_DIAS 83
[2020-09-16] MEDS: tiZANidine 4 MG TAB PO SCH (23:07)
[2020-09-16] MEDS: oxyCODONE 5MG TAB PO PRN (23:07)
[2020-09-16] MEDS: DULoxetine 20 MG CAP (CYMBALTA) PO SCH (23:28)
[2020-09-17] MEDS: NS 1,000 ML IV SCH ×2 (04:45→09:18)
[2020-09-17 05:40] LABS: HEMATOCRIT 31.3 % (42.0-52.0); HEMOGLOBIN 10.8 g/dl (13.5-17.5); MEAN CORPUSCULAR HEMOGLOBIN 32.6 pg (27.0-33.0); MEAN CORPUSCULAR HGB CONC 34.5 g/dl (32.0-36.5); MEAN CORPUSCULAR VOLUME 94.6 fl (80.0-96.0); RED BLOOD COUNT 3.31 10^6/uL (4.30-6.10)
[2020-09-17 05:56] LABS: PLATELET COUNT, AUTOMATED 69 10^3/uL (150-450)
[2020-09-17 05:58] LABS: ALBUMIN 2.3 GM/DL (3.2-5.2); BILIRUBIN,TOTAL 0.5 MG/DL (0.2-1.0); CREATININE FOR GFR 1.66 MG/DL (0.70-1.30); GLOMERULAR FILTRATION RATE 44.1 (>49); MAGNESIUM LEVEL 1.5 MG/DL (1.8-2.4); POTASSIUM SERUM 5.1 MEQ/L (3.5-5.1); TOTAL PROTEIN 5.5 GM/DL (6.4-8.2)
[2020-09-17 06:00] VITALS: BP 104/50
[2020-09-17] MEDS: HEPARIN SOD (PORCINE) 5000UNITS/ML 1ML VIAL/SYRINGE SC SCH ×2 (09:19→21:00)
[2020-09-17] MEDS: oxyCODONE 5MG TAB PO PRN (09:23)
--- NOTE | 2020-09-17 13:19 | IPNPDOC ---
Date Seen The patient was seen on 09/17/20. Progress Note SUBJECTIVE: Comfortable in bed, feels significantly better compared to yesterday, no new complaints today. Patient worked with physical therapy and was orthostatic positive. PHYSICAL EXAMINATION: VITAL SIGNS: Please see below. GENERAL: No distress HEENT: Normocephalic, atraumatic, moist mucous membranes NECK: Supple CARDIOVASCULAR EXAMINATION: S1, S2, no murmurs RESPIRATORY EXAMINATION: Diminished at the bases, no wheezing ABDOMINAL EXAMINATION: Soft, nontender, nondistended, positive bowel sounds EXTREMITIES: , Positive edema SKIN: Intact NEUROLOGICAL EXAMINATION: Alert and oriented 3, no focal deficits PSYCHIATRIC EXAMINATION: Calm and cooperative LABORATORY DATA, IMAGING STUDIES, MICROBIOLOGY: Please see below. ASSESSMENT: 70-year-old male with past medical history of cirrhosis and hypertension is admitted for acute kidney injury and hypotension. PLAN: 1. Acute kidney injury. Likely prerenal due to decreased intervascular volume, GI losses and diuretics. Improving with IV fluids, will continue to monitor. Discontinue diuretics indefinitely, continue to hold lactulose for now. 2. Cirrhosis. Moreno, stable, will monitor. Orthostatic hypotension, antihypertensives already on hold, compression stockings, start midodrine 2.5 mg 3 times a day 4. Hyponatremia Improving with IV fluids and discontinuation of thiazide diuretics, will monitor DVT prophylaxis: Heparin subcutaneous. GI prophylaxis: Not needed VS, I&O, 24H, Fishbone Vital Signs/I&O Vital Signs Date Time Temp Pulse Resp B/P (MAP) Pulse Ox O2 Delivery O2 Flow Rate FiO2 09/17/20 11:25 18 Room Air 09/17/20 06:00 96.9 56 104/50 (68) 97 I&O- Last 24 Hours up to 6 AM 09/17/20 06:00 Intake Total 1050 ml Output Total 400 ml Balance 650 ml Laboratory Data 24H LABS Laboratory Tests 2 09/16/20 15:02: Immature Granulocyte % (Auto) 1.1, Neutrophils (%) (Auto) 69.6H, Lymphocytes (%) (Auto) 16.5L, Monocytes (%) (Auto) 10.0H, Eosinophils (%) (Auto) 1.8, Basophils (%) (Auto) 1.0, Neutrophils # (Auto) 7.8, Lymphocytes # (Auto) 1.8, Monocytes # (Auto) 1.1H, Eosinophils # (Auto) 0.2, Basophils # (Auto) 0.1, Nucleated Red Blood Cells % (auto) 0.0, Prothrombin Time 15.5H, Prothromb Time International Ratio 1.20, Anion Gap 7L, Glomerular Filtration Rate 28.1L, Calcium Level 9.4, Magnesium Level 1.8, Total Creatine Kinase 138, Creatine Kinase MB 2.8, Creatine Kinase MB Relative Index 2.03, Troponin I < 0.02, Thyroid Stimulating Hormone (TSH) 3.030, Free Thyroxine 1.20, Ethyl Alcohol Level < 0.003 09/16/20 17:51: Urine Color YELLOW, Urine Appearance CLEAR, Urine pH 6.0, Urine Specific [place] 1.011, Urine Protein NEGATIVE, Urine Glucose (Auto)(UA) 3+H, Urine Ketones (Auto) NEGATIVE, Urine Blood NEGATIVE, Urine Nitrite NEGATIVE, Urine Bilirubin NEGATIVE, Urine Urobilinogen 0.2, Urine Leukocyte Esterase (Auto) NEGATIVE, Urine WBC (Auto) 1, Urine RBC (Auto) 0, Urine Hyaline Casts (Auto) 12, Urine Bacteria (Auto) NEGATIVE, Urine Squamous Epithelial Cells 0, Urine Sperm (Auto) , Urine Random Creatinine 83.1, Urine Random Sodium 58, Urine Opiates Screen POSITIVEH, Urine Methadone Screen NEGATIVE, Urine Barbiturates Screen NEGATIVE, Urine Phencyclidine Screen NEGATIVE, Urine Amphetamines Screen NEGATIVE, Urine Benzodiazepines Screen NEGATIVE, Urine Cocaine Metabolite Screen NEGATIVE, Urine Cannabinoids Screen NEGATIVE 09/17/20 05:18: Nucleated Red Blood Cells % (auto) 0.0, Anion Gap 6L, Glomerular Filtration Rate 44.1L, Calcium Level 8.0L, Magnesium Level 1.5L, Immature Platelet Fraction 4.1, Total Bilirubin 0.5, Aspartate Amino Transf (AST/SGOT) 25, Alanine Aminotransferase (ALT/SGPT) 30, Alkaline Phosphatase 81, Ammonia 68H, Total Protein 5.5L, Albumin 2.3L, Albumin/Globulin Ratio 0.7 CBC/BMP Laboratory Tests 09/16/20 15:02 09/17/20 05:18 Microbiology Microbiology 09/16/20 Respiratory Virus Panel (PCR) ([facility]) - Final, Complete AVELINO MAY MD Sep 17, 2020 13:19
[2020-09-17 14:00] VITALS: BP 102/48
[2020-09-17] MEDS: MIDODRINE 2.5 MG TAB PO SCH (18:49)
--- NOTE | 2020-09-17 20:45 | ECGEPIP ---
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
[2020-09-17] MEDS: DULoxetine 20 MG CAP (CYMBALTA) PO SCH (21:15)
[2020-09-17] MEDS: tiZANidine 4 MG TAB PO SCH (21:15)
[2020-09-17 22:00] VITALS: BP 115/63
[2020-09-18] MEDS: NS 1,000 ML IV SCH (00:45)
[2020-09-18] MEDS: oxyCODONE 5MG TAB PO PRN (04:35)
[2020-09-18 06:00] VITALS: BP 119/67
[2020-09-18 06:22] LABS: HEMATOCRIT 34.2 % (42.0-52.0); HEMOGLOBIN 11.7 g/dl (13.5-17.5); MEAN CORPUSCULAR HEMOGLOBIN 32.4 pg (27.0-33.0); MEAN CORPUSCULAR HGB CONC 34.2 g/dl (32.0-36.5); MEAN CORPUSCULAR VOLUME 94.7 fl (80.0-96.0); RED BLOOD COUNT 3.61 10^6/uL (4.30-6.10); WHITE BLOOD COUNT 6.3 10^3/uL (4.0-10.0)
[2020-09-18 06:24] LABS: PLATELET COUNT, AUTOMATED 66 10^3/uL (150-450)
[2020-09-18 06:38] LABS: ALBUMIN 2.3 GM/DL (3.2-5.2); ALT/SGPT 34 U/L (12-78); BILIRUBIN,TOTAL 0.5 MG/DL (0.2-1.0); BLOOD UREA NITROGEN 27 MG/DL (7-18); CALCIUM LEVEL 7.8 MG/DL (8.8-10.2); CARBON DIOXIDE LEVEL 24 MEQ/L (21-32); CHLORIDE LEVEL 105 MEQ/L (98-107); CREATININE FOR GFR 1.23 MG/DL (0.70-1.30); GLOMERULAR FILTRATION RATE > 60.0 (>49); GLUCOSE, FASTING 146 MG/DL (70-100); MAGNESIUM LEVEL 1.5 MG/DL (1.8-2.4); PHOSPHORUS LEVEL 2.5 MG/DL (2.5-4.9); POTASSIUM SERUM 4.8 MEQ/L (3.5-5.1); SODIUM LEVEL 136 MEQ/L (136-145); TOTAL PROTEIN 5.9 GM/DL (6.4-8.2)
[2020-09-18] MEDS: MIDODRINE 2.5 MG TAB PO SCH ×2 (08:18→12:07)
[2020-09-18] MEDS: HEPARIN SOD (PORCINE) 5000UNITS/ML 1ML VIAL/SYRINGE SC SCH (08:18)
[2020-09-18] MEDS ORDERED: LACTULOSE 20 GM/30 ML SYRUP UD PO PRN (08:30)
[2020-09-18] MEDS ORDERED: SPIRONOLACTONE 50 MG TAB PO SCH (09:00)
[2020-09-18] MEDS: MAG SULF 1GM/100ML (MAG RUN) 1 GM in IV 1 EA IV SCH ×3 (09:19→11:38)
[2020-09-18 10:40] VITALS: BP 128/67
[2020-09-18 10:42] VITALS: BP 107/63
[2020-09-18 10:44] VITALS: BP 88/50
[2020-09-18 14:00] VITALS: BP_SYST 112; BP_SYST 157; BP_DIAS 63; BP_DIAS 70
[2020-09-18] MEDS ORDERED: LACT20EL PO (14:01)
[2020-09-18] MEDS ORDERED: MIDO2.5T PO (14:01)
--- NOTE | 2020-09-18 14:05 | DS.PDOC ---
Discharge Summary General Date of Admission Sep 16, 2020 at 18:33 Date of Discharge 09/18/20 Attending Physician: AVELINO MAY MD Discharge Summary PROCEDURES PERFORMED DURING STAY: None. ADMITTING DIAGNOSES: 1. Orthostatic hypotension, acute kidney failure. DISCHARGE DIAGNOSES: 1. Orthostatic hypotension, acute kidney failure. COMPLICATIONS/CHIEF COMPLAINT: Arf/Hypotension/Moreno. HISTORY OF PRESENT ILLNESS: 70-year-old male with past medical history of liver cirrhosis secondary to Moreno, hypertension, was admitted for orthostatic hypotension and acute kidney failure. Patient's symptoms were likely related to increased GI losses via lactulose, renal losses due to diuretics and poor oral intake. He was treated with IV fluids and adequately resuscitated with improvement and resolution of acute kidney failure. Hydrochlorothiazide has been discontinued indefinitely, can be reassessed by PCP in the outpatient setting. He was orthostatic positive, started on midodrine, ambulated across the entire floor without any symptoms or difficulty. He remained asymptomatic throughout today. He is advised to follow-up with his PCP within 1-2 weeks for reassessment of symptoms. Blood pressure and medication adjustment as needed. Patient is agreeable with this plan at this time. Patient is hemodynamically stable for discharge at this time. HOSPITAL COURSE: As above. DISCHARGE MEDICATIONS: Please see below. ALLERGIES: Please see below. PHYSICAL EXAMINATION: VITAL SIGNS: Please see below. GENERAL: No distress HEENT: Normocephalic, atraumatic, moist mucous membranes NECK: Supple CARDIOVASCULAR EXAMINATION: S1, S2, no murmurs RESPIRATORY EXAMINATION: Diminished in the bases, no wheezing ABDOMINAL EXAMINATION: Soft, nontender, nondistended, positive bowel sounds EXTREMITIES: Range of motion intact NEUROLOGICAL EXAMINATION: Alert and oriented 3, no focal deficits PSYCHIATRIC EXAMINATION: Calm and cooperative LABORATORY DATA: Please see below. PROGNOSIS: Fair ACTIVITY: As tolerated. DIET: Regular DISCHARGE PLAN: Follow with PCP in 1-2 weeks DISPOSITION: Home. DISCHARGE INSTRUCTIONS: 1. Check blood pressure daily, follow with PCP to adjust her treatment regimen as needed. DISCHARGE CONDITION: Stable. TIME SPENT ON DISCHARGE: Greater than 20 minutes. Vital Signs/I&Os Vital Signs Date Time Temp Pulse Resp B/P (MAP) Pulse Ox O2 Delivery O2 Flow Rate FiO2 09/18/20 10:44 89 88/50 (63) 09/18/20 06:00 97.3 18 98 Room Air I&O- Last 24 Hours up to 6 AM 09/18/20 06:00 Intake Total 2660 ml Output Total 1025 ml Balance 1635 ml Laboratory Data Labs 24H Laboratory Tests 2 09/18/20 05:48: Nucleated Red Blood Cells % (auto) 0.0, Immature Platelet Fraction 3.4, Anion Gap 7L, Glomerular Filtration Rate > 60.0, Calcium Level 7.8L, Phosphorus Level 2.5, Magnesium Level 1.5L, Total Bilirubin 0.5, Aspartate Amino Transf (AST/SGOT) 33, Alanine Aminotransferase (ALT/SGPT) 34, Alkaline Phosphatase 91, Total Protein 5.9L, Albumin 2.3L, Albumin/Globulin Ratio 0.6 CBC/BMP Laboratory Tests 09/18/20 05:48 Microbiology Microbiology 09/16/20 Respiratory Virus Panel (PCR) ([facility]) - Final, Complete Discharge Medications Scheduled Duloxetine Hcl (Duloxetine HCl) 20 Mg Capsule.dr, 20 MG PO QHS, (Reported) Midodrine HCl (Midodrine HCl) 2.5 Mg Tablet, 5 MG PO 08,12,16 Multivit-Min/Folic/Vit K/Lycop (Men's 50 Plus Multivitamin Tab) 1 Each Tablet, 1 TAB PO QHS, (Reported) Spironolactone (Spironolactone) 50 Mg Tablet, 50 MG PO BID, (Reported) Tizanidine HCl (Tizanidine HCl) 4 Mg Tablet, 4 MG PO QHS, (Reported) Trandolapril/Verapamil HCl (Trandolapr-Verapam ER 4-240 mg) 1 Each Tab.bp.24h, 1 TAB PO QHS, (Reported) Scheduled PRN Lactulose (Lactulose) 10 Gm/15 Ml Solution, 15 ML PO TIDP PRN for CONSTIPATION Target 2 Bowel movements per day. Oxycodone HCl (Oxycodone HCl) 10 Mg Tablet, 10 MG PO QID PRN for PAIN, (Reported) Allergies Coded Allergies: No Known Allergies (Verified Allergy, Unknown, 09/05/20) AVELINO MAY MD Sep 18, 2020 14:05
== END 2020-09-18 16:11 | disposition home or self-care (01) | DRG 683 ==
LOC: M ED 14:31 → M ED INP 18:33 → M MSPAV 22:32
PROVIDERS: ADMIT Internal Medicine; ATTEND Internal Medicine
DX: N17.9 Acute kidney failure, unspecified (principal); E87.1 Hypo-osmolality and hyponatremia; I95.1 Orthostatic hypotension; K74.60 Unspecified cirrhosis of liver; K75.81 Nonalcoholic steatohepatitis (NASH); Z79.899 Other long term (current) drug therapy; I10 Essential (primary) hypertension; Z87.891 Personal history of nicotine dependence

== ENCOUNTER 2021-09-18 07:16 | Inpatient (IN) | payer MEDICARE, OTHER ==
[~2021-09-18] VITALS: Ht 182.9 cm; Wt 72.7 kg
[~2021-09-18 07:16] MED LIST changes: +DULO1CAP4 PO; +MIDO2.5T PO; +TAMS1CAP17 PO; +TIZA10TA PO; -TIZA4TAB4 PO
[2021-09-18] MEDS ORDERED: ONDANSETRON 4MG/2ML VIAL IV ONE (08:40)
[2021-09-18] MEDS ORDERED: MORPHINE 4 MG/ML 1ML VIAL/SYRINGE (J2270) IV ONE (08:40)
[2021-09-18 08:56] LABS: HEMATOCRIT 42.6 % (42.0-52.0); HEMOGLOBIN 14.7 g/dl (13.5-17.5); MEAN CORPUSCULAR HEMOGLOBIN 30.2 pg (27.0-33.0); MEAN CORPUSCULAR HGB CONC 34.5 g/dl (32.0-36.5); MEAN CORPUSCULAR VOLUME 87.7 fl (80.0-96.0); RED BLOOD COUNT 4.86 10^6/uL (4.30-6.10); WHITE BLOOD COUNT 12.1 10^3/uL (4.0-10.0)
[2021-09-18] MEDS ORDERED: propofoL 200 MG/20 ML VIAL IV.PROC PRN (09:10)
[2021-09-18] MEDS ORDERED: NS 1,000 ML IV SCH (09:10)
[2021-09-18 09:17] LABS: PLATELET COUNT, AUTOMATED 84 10^3/uL (150-450)
[2021-09-18 09:20] LABS: BLOOD UREA NITROGEN 13 MG/DL (7-18); CALCIUM LEVEL 8.8 MG/DL (8.8-10.2); CARBON DIOXIDE LEVEL 27 MEQ/L (21-32); CHLORIDE LEVEL 94 MEQ/L (98-107); CREATININE FOR GFR 1.13 MG/DL (0.70-1.30); GLOMERULAR FILTRATION RATE > 60.0 (>49); GLUCOSE, FASTING 359 MG/DL (70-100); POTASSIUM SERUM 4.4 MEQ/L (3.5-5.1); SODIUM LEVEL 132 MEQ/L (136-145)
[2021-09-18] MEDS: NS 1,000 ML IV SCH ×2 (10:10→21:36)
[2021-09-18] MEDS ORDERED: MORPHINE 4 MG/ML 1ML VIAL/SYRINGE (J2270) IV PRN ×2 (10:10)
[2021-09-18] MEDS ORDERED: ACETAMINOPHEN TAB 650MG DOSE (2X325MG) PO PRN (10:10)
[2021-09-18 10:13] LABS: RSV AMPLIFICATION NEGATIVE (NEGATIVE)
[2021-09-18] MEDS ORDERED: DULO30CA47 PO (10:25)
[2021-09-18] MEDS ORDERED: HOME MED LIST COMPLETE! XX SCH (10:25)
[2021-09-18] MEDS: PANTOPRAZOLE 40MG VIAL (C9113 PER 1) IV SCH (10:39)
[2021-09-18 11:04] LABS: INR 1.31; PROTHROMBIN TIME 16.7 SECONDS (12.7-14.5)
[2021-09-18 11:07] LABS: PARTIAL THROMBOPLASTIN TIME 29.1 SECONDS (25.9-37.0)
[2021-09-18] MEDS: HumaLOG INSULIN (NovoLOG) PER UNIT SC SCH ×3 (12:00→17:59)
[2021-09-18] MEDS ORDERED: DEXTROSE 50% 50 ML SYRINGE IV PRN (13:10)
[2021-09-18] MEDS ORDERED: GLUCOSE 4GM CHEW TABLET PO PRN (13:10)
[2021-09-18] MEDS ORDERED: GLUCAGON INJ 1MG VIAL SC PRN (13:10)
[2021-09-18 13:35] VITALS: BP 146/80
[2021-09-18 16:01] LABS: HEMOGLOBIN A1c 10.8 %
[2021-09-18 20:18] VITALS: BP 156/82
[2021-09-18] MEDS ORDERED: SPIRONOLACTONE 50 MG TAB PO SCH (21:00)
[2021-09-18] MEDS ORDERED: oxyCODONE 5MG TAB PO PRN (21:10)
[2021-09-18] MEDS ORDERED: PILL CUTTER 1 EACH XX PRN (21:20)
[2021-09-18] MEDS: tiZANidine 4 MG TAB PO SCH (21:33)
[2021-09-18] MEDS: DULoxetine 30MG CAPSULE (CYMBALTA) PO SCH (21:33)
[2021-09-18] MEDS: SPIRONOLACTONE 50 MG TAB PO SCH (21:33)
[2021-09-19 05:36] VITALS: BP 105/64
[2021-09-19 05:51] LABS: HEMATOCRIT 35.9 % (42.0-52.0); MEAN CORPUSCULAR HEMOGLOBIN 30.4 pg (27.0-33.0); MEAN CORPUSCULAR HGB CONC 35.1 g/dl (32.0-36.5); MEAN CORPUSCULAR VOLUME 86.7 fl (80.0-96.0); RED BLOOD COUNT 4.14 10^6/uL (4.30-6.10); WHITE BLOOD COUNT 9.4 10^3/uL (4.0-10.0)
[2021-09-19 05:52] LABS: HEMOGLOBIN 12.6 g/dl (13.5-17.5); PLATELET COUNT, AUTOMATED 61 10^3/uL (150-450)
[2021-09-19 06:16] LABS: ALBUMIN 2.3 GM/DL (3.2-5.2); ALT/SGPT 20 U/L (12-78); BILIRUBIN,TOTAL 1.9 MG/DL (0.2-1.0); BLOOD UREA NITROGEN 13 MG/DL (7-18); CALCIUM LEVEL 7.9 MG/DL (8.8-10.2); CARBON DIOXIDE LEVEL 26 MEQ/L (21-32); CHLORIDE LEVEL 102 MEQ/L (98-107); CREATININE FOR GFR 0.91 MG/DL (0.70-1.30); GLOMERULAR FILTRATION RATE > 60.0 (>49); GLUCOSE, FASTING 295 MG/DL (70-100); POTASSIUM SERUM 4.3 MEQ/L (3.5-5.1); SODIUM LEVEL 136 MEQ/L (136-145); TOTAL PROTEIN 6.1 GM/DL (6.4-8.2)
[2021-09-19] MEDS: HumaLOG INSULIN (NovoLOG) PER UNIT SC SCH ×4 (07:30→21:50)
[2021-09-19] MEDS ORDERED: IBUPROFEN 600MG TAB PO PRN (07:55)
[2021-09-19] MEDS: PERCOCET 5MG/325MG TAB PO PRN ×5 (08:47→21:41)
[2021-09-19] MEDS ORDERED: LEVEMIR (INSULIN DETEMIR) 1 UNITS/0.01ML SC SCH (09:00)
[2021-09-19] MEDS: PANTOPRAZOLE 40MG VIAL (C9113 PER 1) IV SCH (12:10)
[2021-09-19 14:00] VITALS: BP 107/66
[2021-09-19] MEDS: SPIRONOLACTONE 50 MG TAB PO SCH (17:48)
[2021-09-19] MEDS: DULoxetine 30MG CAPSULE (CYMBALTA) PO SCH (21:39)
[2021-09-19] MEDS: tiZANidine 4 MG TAB PO SCH (21:43)
[2021-09-19 22:00] VITALS: BP 134/84
[2021-09-20 06:00] VITALS: BP 114/73
[2021-09-20 06:01] LABS: HEMATOCRIT 36.6 % (42.0-52.0); HEMOGLOBIN 12.8 g/dl (13.5-17.5); MEAN CORPUSCULAR HEMOGLOBIN 30.5 pg (27.0-33.0); MEAN CORPUSCULAR VOLUME 87.4 fl (80.0-96.0); RED BLOOD COUNT 4.19 10^6/uL (4.30-6.10); WHITE BLOOD COUNT 7.4 10^3/uL (4.0-10.0)
[2021-09-20 06:04] LABS: PLATELET COUNT, AUTOMATED 62 10^3/uL (150-450)
[2021-09-20 06:22] LABS: ALBUMIN 2.3 GM/DL (3.2-5.2); ALT/SGPT 19 U/L (12-78); BLOOD UREA NITROGEN 12 MG/DL (7-18); CARBON DIOXIDE LEVEL 26 MEQ/L (21-32); CHLORIDE LEVEL 102 MEQ/L (98-107); CREATININE FOR GFR 0.84 MG/DL (0.70-1.30); GLOMERULAR FILTRATION RATE > 60.0 (>49); GLUCOSE, FASTING 243 MG/DL (70-100); SODIUM LEVEL 134 MEQ/L (136-145); TOTAL PROTEIN 5.8 GM/DL (6.4-8.2)
[2021-09-20] MEDS: HumaLOG INSULIN (NovoLOG) PER UNIT SC SCH ×4 (08:32→20:24)
[2021-09-20] MEDS: ENOXAPARIN 40MG/0.4ML SYRINGE (J1650 PER 10MG) SC SCH (08:33)
[2021-09-20] MEDS ORDERED: LEVEMIR (INSULIN DETEMIR) 1 UNITS/0.01ML SC SCH (09:00)
[2021-09-20] MEDS: PERCOCET 5MG/325MG TAB PO PRN ×2 (10:18→20:23)
[2021-09-20 14:00] VITALS: BP 127/81
[2021-09-20] MEDS: SPIRONOLACTONE 50 MG TAB PO SCH (18:01)
[2021-09-20] MEDS: DULoxetine 30MG CAPSULE (CYMBALTA) PO SCH (20:22)
[2021-09-20] MEDS: tiZANidine 4 MG TAB PO SCH (20:22)
[2021-09-20] MEDS: LEVEMIR (INSULIN DETEMIR) 1 UNITS/0.01ML SC SCH (20:24)
[2021-09-20 22:00] VITALS: BP 136/99
[2021-09-21 06:00] VITALS: BP 120/77
[2021-09-21 06:00] LABS: HEMATOCRIT 37.8 % (42.0-52.0); MEAN CORPUSCULAR HEMOGLOBIN 30.6 pg (27.0-33.0); MEAN CORPUSCULAR HGB CONC 34.4 g/dl (32.0-36.5); MEAN CORPUSCULAR VOLUME 88.9 fl (80.0-96.0); RED BLOOD COUNT 4.25 10^6/uL (4.30-6.10); WHITE BLOOD COUNT 8.2 10^3/uL (4.0-10.0)
[2021-09-21 06:01] LABS: PLATELET COUNT, AUTOMATED 79 10^3/uL (150-450)
[2021-09-21 06:30] LABS: ALBUMIN 2.4 GM/DL (3.2-5.2); ALT/SGPT 17 U/L (12-78); BILIRUBIN,TOTAL 2.2 MG/DL (0.2-1.0); BLOOD UREA NITROGEN 13 MG/DL (7-18); CALCIUM LEVEL 8.4 MG/DL (8.8-10.2); CARBON DIOXIDE LEVEL 30 MEQ/L (21-32); CHLORIDE LEVEL 104 MEQ/L (98-107); CREATININE FOR GFR 0.94 MG/DL (0.70-1.30); GLOMERULAR FILTRATION RATE > 60.0 (>49); GLUCOSE, FASTING 230 MG/DL (70-100); POTASSIUM SERUM 5.1 MEQ/L (3.5-5.1); SODIUM LEVEL 136 MEQ/L (136-145); TOTAL PROTEIN 6.2 GM/DL (6.4-8.2)
[2021-09-21] MEDS: ENOXAPARIN 40MG/0.4ML SYRINGE (J1650 PER 10MG) SC SCH (08:16)
[2021-09-21] MEDS: PERCOCET 5MG/325MG TAB PO PRN ×2 (08:16→15:34)
[2021-09-21] MEDS: HumaLOG INSULIN (NovoLOG) PER UNIT SC SCH ×4 (08:17→20:10)
[2021-09-21] MEDS ORDERED: LEVEMIR (INSULIN DETEMIR) 1 UNITS/0.01ML SC SCH (09:00)
[2021-09-21 14:00] VITALS: BP 120/75
[2021-09-21] MEDS: SPIRONOLACTONE 50 MG TAB PO SCH (18:47)
[2021-09-21 19:48] VITALS: BP 158/62
[2021-09-21] MEDS: DULoxetine 30MG CAPSULE (CYMBALTA) PO SCH (21:32)
[2021-09-21] MEDS: tiZANidine 4 MG TAB PO SCH (21:32)
[2021-09-21] MEDS: LEVEMIR (INSULIN DETEMIR) 1 UNITS/0.01ML SC SCH (21:33)
[2021-09-22] VITALS (8 sets, daily range): BP systolic 115–128; BP diastolic 66–76
[2021-09-22] MEDS: PERCOCET 5MG/325MG TAB PO PRN ×3 (00:41→20:52)
[2021-09-22] MEDS: HumaLOG INSULIN (NovoLOG) PER UNIT SC SCH ×4 (07:30→20:52)
[2021-09-22] MEDS ORDERED: SUGAMMADEX SODIUM 500 MG/5 ML VIAL (BRIDION) As Ordered ONE (08:04)
[2021-09-22] MEDS ORDERED: KETOROLAC 60MG 2ML VIAL As Ordered ONE (08:04)
[2021-09-22] MEDS ORDERED: ROCURONIUM BROMIDE 50 MG/5 ML VIAL As Ordered ONE (08:04)
[2021-09-22] MEDS ORDERED: ACETAMINOPHEN 1000MG 100ML IV BTL (OFIRMEV) (J0131 PER 10MG) As Ordered ONE (08:04)
[2021-09-22] MEDS ORDERED: ONDANSETRON 4MG/2ML VIAL As Ordered ONE (08:04)
[2021-09-22] MEDS ORDERED: dexameTHASONE 4 MG/ML 1ML VIAL (J1100 PER 1MG) As Ordered ONE (08:04)
[2021-09-22] MEDS ORDERED: propofoL 200 MG/20 ML VIAL As Ordered ONE (08:04)
[2021-09-22] MEDS ORDERED: fentaNYL 100 MCG/2 ML INJECTION As Ordered ONE (08:04)
[2021-09-22] MEDS ORDERED: LIDOCAINE 2% 100MG/5ML SDV (FOR ANES.) As Ordered ONE (08:04)
[2021-09-22] MEDS ORDERED: MIDAZOLAM INJ 2MG/2ML VIAL (J2250 PER 1MG) As Ordered ONE (08:05)
[2021-09-22] MEDS ORDERED: ceFAZolin 2 GM/D5W 50 ML IV BAG (J0690 PER 500MG) As Ordered ONE (08:28)
[2021-09-22] MEDS ORDERED: BUPIVACAINE HCL 0.25% 30ML VIAL As Ordered ONE (10:45)
[2021-09-22] MEDS ORDERED: ONDANSETRON 4MG/2ML VIAL IV PRN ×2 (11:45→12:00)
[2021-09-22] MEDS ORDERED: PERCOCET 5MG/325MG TAB PO PRN (11:45)
[2021-09-22] MEDS ORDERED: METOCLOPRAMIDE INJ 10MG/2ML VIAL (J2765 PER 1) IV PRN (11:45)
[2021-09-22] MEDS ORDERED: fentaNYL 100 MCG/2 ML INJECTION IV PRN (11:45)
[2021-09-22] MEDS ORDERED: LR 1,000 ML IV SCH (11:45)
[2021-09-22] MEDS: LR 1,000 ML IV SCH ×2 (11:55→20:00)
[2021-09-22] MEDS ORDERED: ACETAMINOPHEN TAB 650MG DOSE (2X325MG) PO PRN (12:00)
[2021-09-22] MEDS ORDERED: MORPHINE 4 MG/ML 1ML VIAL/SYRINGE (J2270) IV PRN (12:00)
[2021-09-22] MEDS: LEVEMIR (INSULIN DETEMIR) 1 UNITS/0.01ML SC SCH ×2 (14:29→20:53)
[2021-09-22 14:42] LABS: MEAN CORPUSCULAR HEMOGLOBIN 30.4 pg (27.0-33.0); MEAN CORPUSCULAR HGB CONC 34.2 g/dl (32.0-36.5); MEAN CORPUSCULAR VOLUME 88.8 fl (80.0-96.0); RED BLOOD COUNT 4.28 10^6/uL (4.30-6.10); WHITE BLOOD COUNT 8.9 10^3/uL (4.0-10.0)
[2021-09-22 14:43] LABS: PLATELET COUNT, AUTOMATED 73 10^3/uL (150-450)
[2021-09-22 15:15] LABS: ALBUMIN 2.3 GM/DL (3.2-5.2); ALT/SGPT 16 U/L (12-78); BILIRUBIN,TOTAL 2.7 MG/DL (0.2-1.0); BLOOD UREA NITROGEN 12 MG/DL (7-18); CALCIUM LEVEL 8.7 MG/DL (8.8-10.2); CARBON DIOXIDE LEVEL 29 MEQ/L (21-32); CHLORIDE LEVEL 101 MEQ/L (98-107); GLOMERULAR FILTRATION RATE > 60.0 (>49); GLUCOSE, FASTING 227 MG/DL (70-100); POTASSIUM SERUM 5.2 MEQ/L (3.5-5.1); SODIUM LEVEL 133 MEQ/L (136-145); TOTAL PROTEIN 6.6 GM/DL (6.4-8.2)
[2021-09-22] MEDS: SPIRONOLACTONE 50 MG TAB PO SCH (17:34)
[2021-09-22] MEDS: tiZANidine 4 MG TAB PO SCH (20:52)
[2021-09-22] MEDS: DULoxetine 30MG CAPSULE (CYMBALTA) PO SCH (20:52)
[2021-09-23 02:00] VITALS: BP 100/64
[2021-09-23 06:00] VITALS: BP 96/60
[2021-09-23 07:02] LABS: HEMATOCRIT 35.3 % (42.0-52.0); HEMOGLOBIN 12.2 g/dl (13.5-17.5); MEAN CORPUSCULAR HEMOGLOBIN 30.3 pg (27.0-33.0); MEAN CORPUSCULAR HGB CONC 34.6 g/dl (32.0-36.5); MEAN CORPUSCULAR VOLUME 87.8 fl (80.0-96.0); RED BLOOD COUNT 4.02 10^6/uL (4.30-6.10); WHITE BLOOD COUNT 10.4 10^3/uL (4.0-10.0)
[2021-09-23 07:04] LABS: PLATELET COUNT, AUTOMATED 88 10^3/uL (150-450)
[2021-09-23 07:32] LABS: ALBUMIN 2.1 GM/DL (3.2-5.2); ALT/SGPT 14 U/L (12-78); BILIRUBIN,TOTAL 1.6 MG/DL (0.2-1.0); BLOOD UREA NITROGEN 16 MG/DL (7-18); CALCIUM LEVEL 8.2 MG/DL (8.8-10.2); CARBON DIOXIDE LEVEL 27 MEQ/L (21-32); CHLORIDE LEVEL 100 MEQ/L (98-107); CREATININE FOR GFR 0.83 MG/DL (0.70-1.30); GLOMERULAR FILTRATION RATE > 60.0 (>49); GLUCOSE, FASTING 261 MG/DL (70-100); POTASSIUM SERUM 4.7 MEQ/L (3.5-5.1); SODIUM LEVEL 132 MEQ/L (136-145); TOTAL PROTEIN 5.9 GM/DL (6.4-8.2)
[2021-09-23] MEDS ORDERED: NS 1,000 ML IV SCH (07:50)
[2021-09-23] MEDS: HumaLOG INSULIN (NovoLOG) PER UNIT SC SCH ×4 (08:27→21:45)
[2021-09-23] MEDS: LEVEMIR (INSULIN DETEMIR) 1 UNITS/0.01ML SC SCH ×2 (08:28→21:45)
[2021-09-23] MEDS: PERCOCET 5MG/325MG TAB PO PRN ×2 (08:31→17:35)
[2021-09-23 10:00] VITALS: BP_SYST 109; BP_SYST 163; BP_DIAS 65; BP_DIAS 88
[2021-09-23 14:00] VITALS: BP 112/69
[2021-09-23] MEDS: tiZANidine 4 MG TAB PO SCH (21:46)
[2021-09-23] MEDS: DULoxetine 30MG CAPSULE (CYMBALTA) PO SCH (21:46)
[2021-09-23 22:00] VITALS: BP 116/70
[2021-09-24] MEDS: PERCOCET 5MG/325MG TAB PO PRN ×3 (04:10→21:06)
[2021-09-24 06:00] VITALS: BP 112/68
[2021-09-24 06:37] LABS: HEMATOCRIT 33.8 % (42.0-52.0); HEMOGLOBIN 11.6 g/dl (13.5-17.5); MEAN CORPUSCULAR HEMOGLOBIN 30.5 pg (27.0-33.0); MEAN CORPUSCULAR HGB CONC 34.3 g/dl (32.0-36.5); MEAN CORPUSCULAR VOLUME 88.9 fl (80.0-96.0); WHITE BLOOD COUNT 9.8 10^3/uL (4.0-10.0)
[2021-09-24 06:44] LABS: PLATELET COUNT, AUTOMATED 91 10^3/uL (150-450)
[2021-09-24 07:04] LABS: ALT/SGPT 14 U/L (12-78); BILIRUBIN,TOTAL 1.6 MG/DL (0.2-1.0); BLOOD UREA NITROGEN 16 MG/DL (7-18); CALCIUM LEVEL 8.4 MG/DL (8.8-10.2); CARBON DIOXIDE LEVEL 28 MEQ/L (21-32); CHLORIDE LEVEL 101 MEQ/L (98-107); CREATININE FOR GFR 0.78 MG/DL (0.70-1.30); GLOMERULAR FILTRATION RATE > 60.0 (>49); GLUCOSE, FASTING 182 MG/DL (70-100); POTASSIUM SERUM 4.5 MEQ/L (3.5-5.1); SODIUM LEVEL 133 MEQ/L (136-145); TOTAL PROTEIN 5.9 GM/DL (6.4-8.2)
[2021-09-24] MEDS ORDERED: PERCOCET 5MG/325MG TAB PO PRN (07:55)
[2021-09-24] MEDS: HumaLOG INSULIN (NovoLOG) PER UNIT SC SCH ×4 (07:59→21:00)
[2021-09-24] MEDS: metFORMIN (GLUCOPHAGE) 1000 MG TABLET PO SCH ×2 (08:00→17:43)
[2021-09-24] MEDS: ENOXAPARIN 40MG/0.4ML SYRINGE (J1650 PER 10MG) SC SCH (08:33)
[2021-09-24] MEDS ORDERED: LEVEMIR (INSULIN DETEMIR) 1 UNITS/0.01ML SC SCH (09:00)
[2021-09-24 14:00] VITALS: BP 138/90
[2021-09-24 20:00] VITALS: BP 142/89
[2021-09-24] MEDS: tiZANidine 4 MG TAB PO SCH (21:05)
[2021-09-24] MEDS: DULoxetine 30MG CAPSULE (CYMBALTA) PO SCH (21:05)
[2021-09-25] MEDS: PERCOCET 5MG/325MG TAB PO PRN (05:31)
[2021-09-25 06:00] VITALS: BP 123/73
[2021-09-25] MEDS ORDERED: METF10004 PO (08:19)
[2021-09-25] MEDS ORDERED: ACET1TAB55 PO (08:19)
[2021-09-25] MEDS: metFORMIN (GLUCOPHAGE) 1000 MG TABLET PO SCH (08:28)
[2021-09-25] MEDS: HumaLOG INSULIN (NovoLOG) PER UNIT SC SCH ×2 (08:29→12:25)
[2021-09-25] MEDS: ENOXAPARIN 40MG/0.4ML SYRINGE (J1650 PER 10MG) SC SCH (08:30)
[2021-09-25] MEDS ORDERED: ASPI81CH33 PO (18:56)
== END 2021-09-25 14:30 | disposition home health service (06) | DRG 494 ==
LOC: M ED 07:16 → M ED INP 10:10 → ENRESERV 12:23 → M MS5PR 13:35
PROVIDERS: ADMIT Internal Medicine; ATTEND Internal Medicine
PROC: 0QSK04Z Reposition Left Fibula with Internal Fixation Device, Open Approach (ICD-10-PCS; principal; 2021-09-22 08:30)
DX: S82.852A Displaced trimalleolar fracture of left lower leg, initial encounter for closed fracture (principal); I10 Essential (primary) hypertension; E11.51 Type 2 diabetes mellitus with diabetic peripheral angiopathy without gangrene; K75.81 Nonalcoholic steatohepatitis (NASH); D69.6 Thrombocytopenia, unspecified; Z79.82 Long term (current) use of aspirin; Z79.899 Other long term (current) drug therapy; W18.30XA Fall on same level, unspecified, initial encounter; Y92.009 Unspecified place in unspecified non-institutional (private) residence as the place of occurrence of the external cause; E87.5 Hyperkalemia; M48.061 Spinal stenosis, lumbar region without neurogenic claudication

== ENCOUNTER → 2021-09-28 | Outpatient (CLI) | payer OTHER ==
[~2021-09-28] MED LIST changes: +ACET1TAB55 PO; +ASPI81CH33 PO; +DULO30CA47 PO; +METF10004 PO
== END ==
LOC: M SOG 10:17
PROVIDERS: ATTEND Orthopaedic Surgery Sports Medicine
DX: Z47.89 Encounter for other orthopedic aftercare (principal)

== ENCOUNTER → 2021-10-06 | Outpatient (CLI) | payer OTHER | LOC: M SOG 10:07 | PROVIDERS: ATTEND Orthopaedic Surgery | DX: Z47.89 Encounter for other orthopedic aftercare (principal) ==

== ENCOUNTER → 2021-10-26 | Outpatient (CLI) | payer OTHER | LOC: M SOG 08:09 | PROVIDERS: ATTEND Orthopaedic Surgery Sports Medicine | DX: S82.842D Displaced bimalleolar fracture of left lower leg, subsequent encounter for closed fracture with routine healing (principal) ==

== ENCOUNTER 2022-02-22 14:43 | Inpatient (IN) | payer OTHER ==
[~2022-02-22] VITALS: Ht 182.9 cm; Wt 96.8 kg
[~2022-02-22 14:43] MED LIST changes: -IBUP200T46 PO
[2022-02-22 16:13] LABS: BASO # 0.2 10^3/uL (0.0-0.2); BASO % 0.6 % (0.0-1.0); EOS % 0.1 % (0.0-3.0); HEMATOCRIT 38.5 % (42.0-52.0); HEMOGLOBIN 13.5 g/dl (13.5-17.5); LYMPH % 3.2 % (24.0-44.0); MEAN CORPUSCULAR HEMOGLOBIN 31.2 pg (27.0-33.0); MEAN CORPUSCULAR HGB CONC 35.1 g/dl (32.0-36.5); MEAN CORPUSCULAR VOLUME 88.9 fl (80.0-96.0); MONO # 1.1 10^3/uL (0.0-0.8); MONO % 3.7 % (2.0-8.0); NEUTROPHILS # 26.9 10^3/uL (1.5-8.5); NEUTROPHILS % 90.2 % (36.0-66.0); PLATELET COUNT, AUTOMATED 173 10^3/uL (150-450); RED BLOOD COUNT 4.33 10^6/uL (4.30-6.10); WHITE BLOOD COUNT 29.8 10^3/uL (4.0-10.0)
[2022-02-22] MEDS ORDERED: NS 2,590 ML in IV 1 EA IV ONE (16:35)
[2022-02-22 16:39] LABS: C REACTIVE PROTEIN QUANTITATIV 13.1 MG/DL (0.00-0.30); CALCIUM LEVEL 10.2 MG/DL (8.8-10.2); CREATININE FOR GFR 1.38 MG/DL (0.70-1.30); GLOMERULAR FILTRATION RATE 54.4 (>49); POTASSIUM SERUM 4.7 MEQ/L (3.5-5.1)
[2022-02-22 16:45] LABS: ERYTHROCYTE SEDIMENTATION RATE 45 mm/hr (0-20)
[2022-02-22] MEDS ORDERED: VANCOMYCIN HCL 1,750 MG in IV FLUID PLACE HOLDER 1 EA IV ONE (16:50)
[2022-02-22] MEDS ORDERED: VANCOMYCIN HCL 1,000 MG, VIAL MATE ADAPTER 1 EACH in D5W 250 ML IV ONE (17:00)
[2022-02-22] MEDS ORDERED: VANCOMYCIN HCL 750 MG, VIAL MATE ADAPTER 1 EACH in D5W 250 ML IV ONE (18:00)
[2022-02-22] MEDS ORDERED: ISOVUE-370 76% 100ML VIAL As Ordered ONE (18:37)
[2022-02-22 18:38] LABS: RSV AMPLIFICATION NEGATIVE (NEGATIVE)
[2022-02-22] MEDS ORDERED: DEXTROSE 50% 50 ML SYRINGE IV PRN (18:50)
[2022-02-22] MEDS ORDERED: GLUCOSE 4GM CHEW TABLET PO PRN (18:50)
[2022-02-22] MEDS ORDERED: ACETAMINOPHEN TAB 650MG DOSE (2X325MG) PO PRN (18:50)
[2022-02-22] MEDS ORDERED: GLUCAGON INJ 1MG VIAL SC PRN (18:50)
[2022-02-22] MEDS ORDERED: IBUP200T46 PO (19:24)
[2022-02-22] MEDS ORDERED: HOME MED LIST COMPLETE! XX SCH (19:25)
[2022-02-22] MEDS ORDERED: NS 1,000 ML IV SCH (19:45)
[2022-02-22] MEDS: PIPERACILLIN/TAZOBACTAM SOD 3.375 GM in D5W MINI-BAG PLUS 50 ML IV SCH (20:14)
[2022-02-22 20:26] LABS: HEMOGLOBIN A1c 10.3 %
[2022-02-22 20:28] LABS: FIBRINOGEN 349 MG/DL (268-480)
[2022-02-22 20:30] LABS: BLOOD UREA NITROGEN 25 MG/DL (7-18); CALCIUM LEVEL 8.9 MG/DL (8.8-10.2); CARBON DIOXIDE LEVEL 27 MEQ/L (21-32); CHLORIDE LEVEL 97 MEQ/L (98-107); GLOMERULAR FILTRATION RATE > 60.0 (>49); GLUCOSE, FASTING 318 MG/DL (70-100); POTASSIUM SERUM 4.5 MEQ/L (3.5-5.1); SODIUM LEVEL 130 MEQ/L (136-145)
[2022-02-22 20:38] LABS: MAGNESIUM LEVEL 1.6 MG/DL (1.8-2.4)
[2022-02-22] MEDS ORDERED: INSULIN LISPRO (NovoLOG) PER UNIT SC SCH (21:00)
[2022-02-22 21:01] LABS: D-DIMER QUANT > 4000 ng/ml (<500)
[2022-02-22 22:14] LABS: APPEARANCE, URINE HAZY (CLEAR); BACTERIA, URINE AUTO NEGATIVE (NEGATIVE); BILIRUBIN, URINE AUTO NEGATIVE (NEGATIVE); BLOOD, URINE BLOOD NEGATIVE (NEGATIVE); COLOR, URINE AMBER (YELLOW); GLUCOSE, URINE (UA) AUTO 3+ mg/dL (NEGATIVE); KETONE, URINE AUTO NEGATIVE (NEGATIVE); LEUKOCYTE ESTERASE, URINE AUTO NEGATIVE (NEGATIVE); MUCUS, URINE SMALL (NEGATIVE); NITRITE, URINE AUTO NEGATIVE (NEGATIVE); PROTEIN, URINE AUTO NEGATIVE (NEGATIVE); RBC, URINE AUTO 1 /HPF (0-3); SPECIFIC GRAVITY URINE AUTO 1.032 (1.002-1.035); SQUAMOUS EPITHELIAL CELL UR AU 0 /HPF (0-6); WBC, URINE AUTO 4 /HPF (0-3)
[2022-02-22] MEDS ORDERED: MAGNESIUM OXIDE 400MG TAB (MAG-OX) PO ONE (23:15)
[2022-02-22] MEDS ORDERED: NS 1,000 ML IV ONE (23:45)
[2022-02-23] VITALS (7 sets, daily range): BP systolic 148–161; BP diastolic 72–89
[2022-02-23] MEDS: LACTULOSE 20 GM/30 ML SYRUP UD PO SCH ×4 (00:56→20:34)
[2022-02-23] MEDS: INSULIN LISPRO (NovoLOG) PER UNIT SC SCH ×4 (00:57→20:46)
[2022-02-23] MEDS: PIPERACILLIN/TAZOBACTAM SOD 3.375 GM in D5W MINI-BAG PLUS 50 ML IV SCH ×4 (03:00→20:34)
[2022-02-23 06:22] LABS: BASO # 0.1 10^3/uL (0.0-0.2); BASO % 0.4 % (0.0-1.0); EOS # 0.1 10^3/uL (0.0-0.5); EOS % 0.2 % (0.0-3.0); HEMATOCRIT 39.7 % (42.0-52.0); HEMOGLOBIN 13.3 g/dl (13.5-17.5); LYMPH # 1.7 10^3/uL (1.5-5.0); LYMPH % 4.4 % (24.0-44.0); MEAN CORPUSCULAR HEMOGLOBIN 30.4 pg (27.0-33.0); MEAN CORPUSCULAR HGB CONC 33.5 g/dl (32.0-36.5); MEAN CORPUSCULAR VOLUME 90.8 fl (80.0-96.0); MONO # 1.3 10^3/uL (0.0-0.8); MONO % 3.5 % (2.0-8.0); NEUTROPHILS # 33.5 10^3/uL (1.5-8.5); NEUTROPHILS % 88.9 % (36.0-66.0); PLATELET COUNT, AUTOMATED 210 10^3/uL (150-450); RED BLOOD COUNT 4.37 10^6/uL (4.30-6.10)
[2022-02-23 06:30] LABS: WHITE BLOOD COUNT 37.6 10^3/uL (4.0-10.0)
[2022-02-23 06:39] LABS: INR 1.63; PROTHROMBIN TIME 19.7 SECONDS (12.7-14.5)
[2022-02-23 06:40] LABS: PARTIAL THROMBOPLASTIN TIME 37.2 SECONDS (25.9-37.0)
[2022-02-23 06:43] LABS: CALCIUM LEVEL 9.6 MG/DL (8.8-10.2); CREATININE FOR GFR 1.33 MG/DL (0.70-1.30); GLOMERULAR FILTRATION RATE 56.8 (>49); MAGNESIUM LEVEL 1.7 MG/DL (1.8-2.4); POTASSIUM SERUM 4.3 MEQ/L (3.5-5.1)
[2022-02-23] MEDS ORDERED: INSULIN LISPRO (NovoLOG) PER UNIT SC SCH (07:30)
[2022-02-23] MEDS: LACTOBACILLUS ACIDOPHILUS CAP (BACID) PO SCH ×2 (08:00→20:47)
[2022-02-23] MEDS: NS 1,000 ML IV SCH ×2 (08:00→20:34)
[2022-02-23 08:38] LABS: VANCOMYCIN RANDOM 13.8 UG/ML
[2022-02-23] MEDS: PANTOPRAZOLE 40MG TAB (PROTONIX) PO SCH (10:04)
[2022-02-23] MEDS ORDERED: VANCOMYCIN HCL 750 MG, VIAL MATE ADAPTER 1 EACH in D5W 250 ML IV SCH ×2 (13:00→20:00)
[2022-02-23] MEDS ORDERED: VANCOMYCIN HCL 500 MG in D5W MINI-BAG PLUS 100 ML IV SCH (14:00)
[2022-02-23 14:57] LABS: ALBUMIN 1.8 GM/DL (3.2-5.2); ALT/SGPT 26 U/L (12-78); BILIRUBIN,TOTAL 2.3 MG/DL (0.2-1.0); BLOOD UREA NITROGEN 22 MG/DL (7-18); CALCIUM LEVEL 9.4 MG/DL (8.8-10.2); CARBON DIOXIDE LEVEL 23 MEQ/L (21-32); CHLORIDE LEVEL 100 MEQ/L (98-107); CREATININE FOR GFR 1.12 MG/DL (0.70-1.30); GLOMERULAR FILTRATION RATE > 60.0 (>49); GLUCOSE, FASTING 313 MG/DL (70-100); POTASSIUM SERUM 4.2 MEQ/L (3.5-5.1); SODIUM LEVEL 130 MEQ/L (136-145); TOTAL PROTEIN 6.7 GM/DL (6.4-8.2)
[2022-02-23] MEDS ORDERED: MIDAZOLAM INJ 2MG/2ML VIAL (J2250 PER 1MG) As Ordered ONE (15:42)
[2022-02-23] MEDS ORDERED: LIDOCAINE 2% 100MG/5ML SDV (FOR ANES.) As Ordered ONE (15:42)
[2022-02-23] MEDS ORDERED: propofoL 200 MG/20 ML VIAL As Ordered ONE (15:42)
[2022-02-23] MEDS ORDERED: fentaNYL 100 MCG/2 ML INJECTION As Ordered ONE ×2 (15:43→16:29)
[2022-02-23] MEDS ORDERED: EPINEPHrine 1MG/ML INJ 30ML MD-VIAL As Ordered ONE (15:51)
[2022-02-23] MEDS ORDERED: VANCOMYCIN 1000MG/20ML VIAL As Ordered ONE (16:04)
[2022-02-23] MEDS ORDERED: ACETAMINOPHEN 1000MG 100ML IV BTL (OFIRMEV) (J0131 PER 10MG) As Ordered ONE (16:31)
[2022-02-23] MEDS ORDERED: ONDANSETRON 4MG 2ML VIAL As Ordered ONE (16:32)
[2022-02-23] MEDS ORDERED: MORPHINE 2 MG/ML 1ML VIAL IV PRN (18:20)
[2022-02-23] MEDS ORDERED: ONDANSETRON 4MG 2ML VIAL IV PRN (18:20)
[2022-02-23] MEDS ORDERED: PERCOCET 5MG/325MG TAB PO PRN (18:20)
[2022-02-23] MEDS ORDERED: fentaNYL 100 MCG/2 ML INJECTION IV PRN (18:20)
[2022-02-23] MEDS ORDERED: LR 1,000 ML IV SCH (18:20)
[2022-02-23] MEDS ORDERED: VANCOMYCIN HCL 750 MG, VIAL MATE ADAPTER 1 EACH in D5W 250 ML IV ONE (20:00)
[2022-02-23] MEDS ORDERED: VANCOMYCIN HCL 500 MG in D5W MINI-BAG PLUS 100 ML IV ONE (21:00)
[2022-02-24] VITALS (20 sets, daily range): BP systolic 153–171; BP diastolic 79–90; O2SAT 91–100
[2022-02-24] MEDS: INSULIN LISPRO (NovoLOG) PER UNIT SC SCH ×5 (00:15→23:04)
[2022-02-24] MEDS: PIPERACILLIN/TAZOBACTAM SOD 3.375 GM in D5W MINI-BAG PLUS 50 ML IV SCH ×4 (02:56→22:39)
[2022-02-24 06:18] LABS: BASO # 0.2 10^3/uL (0.0-0.2); BASO % 0.5 % (0.0-1.0); EOS % 0.1 % (0.0-3.0); HEMATOCRIT 34.2 % (42.0-52.0); LYMPH # 1.1 10^3/uL (1.5-5.0); LYMPH % 3.3 % (24.0-44.0); MEAN CORPUSCULAR HEMOGLOBIN 31.3 pg (27.0-33.0); MEAN CORPUSCULAR HGB CONC 35.1 g/dl (32.0-36.5); MEAN CORPUSCULAR VOLUME 89.3 fl (80.0-96.0); MONO # 1.2 10^3/uL (0.0-0.8); MONO % 3.5 % (2.0-8.0); NEUTROPHILS # 30.8 10^3/uL (1.5-8.5); NEUTROPHILS % 90.1 % (36.0-66.0); PLATELET COUNT, AUTOMATED 181 10^3/uL (150-450); RED BLOOD COUNT 3.83 10^6/uL (4.30-6.10)
[2022-02-24 06:22] LABS: WHITE BLOOD COUNT 34.2 10^3/uL (4.0-10.0)
[2022-02-24 06:30] LABS: INR 1.72; PROTHROMBIN TIME 20.6 SECONDS (12.7-14.5)
[2022-02-24 06:31] LABS: PARTIAL THROMBOPLASTIN TIME 34.3 SECONDS (25.9-37.0)
[2022-02-24 06:48] LABS: ALBUMIN 1.8 GM/DL (3.2-5.2); ALT/SGPT 22 U/L (12-78); BILIRUBIN,DIRECT 1.7 MG/DL (0.0-0.2); BILIRUBIN,TOTAL 2.2 MG/DL (0.2-1.0); BLOOD UREA NITROGEN 21 MG/DL (7-18); CALCIUM LEVEL 9.2 MG/DL (8.8-10.2); CARBON DIOXIDE LEVEL 19 MEQ/L (21-32); CHLORIDE LEVEL 102 MEQ/L (98-107); CREATININE FOR GFR 1.17 MG/DL (0.70-1.30); FERRITIN 568 NG/ML (26-388); GLOMERULAR FILTRATION RATE > 60.0 (>49); GLUCOSE, FASTING 354 MG/DL (70-100); LDH LACTATE DEHYDROGENASE 276 U/L (87-241); MAGNESIUM LEVEL 1.7 MG/DL (1.8-2.4); NT-PRO BNP 1488 PG/ML (<125); POTASSIUM SERUM 4.2 MEQ/L (3.5-5.1); SODIUM LEVEL 133 MEQ/L (136-145); TOTAL PROTEIN 6.6 GM/DL (6.4-8.2)
[2022-02-24] MEDS: NS 1,000 ML IV SCH ×3 (07:31→23:05)
[2022-02-24] MEDS ORDERED: MAG SULF 1GM/100ML (MAG RUN) 1 GM in IV 1 EA IV ONE (07:35)
[2022-02-24] MEDS: PANTOPRAZOLE 40MG TAB (PROTONIX) PO SCH (08:45)
[2022-02-24] MEDS: LEVEMIR (INSULIN DETEMIR) 1 UNITS/0.01ML SC SCH ×2 (08:45→23:04)
[2022-02-24] MEDS: LACTULOSE 20 GM/30 ML SYRUP UD PO SCH ×3 (08:45→22:39)
[2022-02-24] MEDS: LACTOBACILLUS ACIDOPHILUS CAP (BACID) PO SCH ×2 (08:45→17:17)
[2022-02-24 10:07] LABS: ABG BASE EXCESS -2.1 (-2.0-2.0); ABG HCO3 20.9 MEQ/L (22.0-26.0); ABG O2 SATURATION 96.8 % (95.0-99.0); ABG PARTIAL PRESSURE CO2 30.3 mmHg (35.0-45.0); ABG PARTIAL PRESSURE O2 83.9 mmHg (75.0-100.0); ABG STANDARD HCO3 22.7 MEQ/L (22.0-26.0); ABG TOTAL CO2 21.8 MEQ/L (23.0-31.0); ABG pH (ARTERIAL) 7.456 UNITS (7.350-7.450)
[2022-02-24] MEDS ORDERED: MORPHINE 2 MG/ML 1ML VIAL IV PRN ×2 (11:10)
[2022-02-24] MEDS: ONDANSETRON 4MG 2ML VIAL IV SCH ×3 (12:34→23:20)
[2022-02-24] MEDS ORDERED: VANCOMYCIN INTERMITTENT/PULSE DOSING BY CLINICAL PHARMACIST PER DOSING PROTOCOL XX SCH (13:00)
[2022-02-24] MEDS ORDERED: BEBTELOVIMAB 175MG 2ML VIAL (EUA) IV ONE (13:00)
[2022-02-24] MEDS ORDERED: VANCOMYCIN HCL 500 MG in D5W MINI-BAG PLUS 100 ML IV SCH (15:00)
[2022-02-24] MEDS: VANCOMYCIN HCL 750 MG, VIAL MATE ADAPTER 1 EACH in D5W 250 ML IV SCH (16:10)
[2022-02-24] MEDS: HEPARIN SOD (PORCINE) 5000UNITS/ML 1ML VIAL/SYRINGE SQ SCH ×2 (16:10→22:39)
[2022-02-24 16:56] LABS: ALBUMIN 1.9 GM/DL (3.2-5.2); ALT/SGPT 23 U/L (12-78); BLOOD UREA NITROGEN 20 MG/DL (7-18); CALCIUM LEVEL 9.5 MG/DL (8.8-10.2); CARBON DIOXIDE LEVEL 22 MEQ/L (21-32); CHLORIDE LEVEL 104 MEQ/L (98-107); CREATININE FOR GFR 1.01 MG/DL (0.70-1.30); GLOMERULAR FILTRATION RATE > 60.0 (>49); GLUCOSE, FASTING 272 MG/DL (70-100); POTASSIUM SERUM 3.9 MEQ/L (3.5-5.1); SODIUM LEVEL 134 MEQ/L (136-145); TOTAL PROTEIN 7.3 GM/DL (6.4-8.2)
[2022-02-24] MEDS ORDERED: PROHANCE 279.3MG/ML 5ML VIAL As Ordered ONE (20:18)
[2022-02-24] MEDS ORDERED: PROHANCE 279.3MG/ML 15ML VIAL As Ordered ONE (20:18)
[2022-02-24] MEDS: PANTOPRAZOLE 40MG VIAL IV SCH (22:39)
[2022-02-25] VITALS (14 sets, daily range): BP systolic 82–170; BP diastolic 53–88; O2SAT 95–98
[2022-02-25] MEDS: NS 1,000 ML IV SCH ×2 (02:25→16:23)
[2022-02-25] MEDS: PIPERACILLIN/TAZOBACTAM SOD 3.375 GM in D5W MINI-BAG PLUS 50 ML IV SCH ×4 (03:56→22:16)
[2022-02-25] MEDS: ONDANSETRON 4MG 2ML VIAL IV SCH ×3 (05:17→18:08)
[2022-02-25] MEDS: HEPARIN SOD (PORCINE) 5000UNITS/ML 1ML VIAL/SYRINGE SQ SCH ×3 (05:18→22:17)
[2022-02-25] MEDS ORDERED: tiZANidine 4 MG TAB PO ONE (06:00)
[2022-02-25] MEDS: INSULIN LISPRO (NovoLOG) PER UNIT SC SCH ×3 (07:07→18:00)
[2022-02-25] MEDS: LACTOBACILLUS ACIDOPHILUS CAP (BACID) PO SCH ×2 (08:00→18:00)
[2022-02-25 08:20] LABS: BASO # 0.1 10^3/uL (0.0-0.2); BASO % 0.3 % (0.0-1.0); EOS # 0.1 10^3/uL (0.0-0.5); EOS % 0.3 % (0.0-3.0); HEMATOCRIT 29.8 % (42.0-52.0); HEMOGLOBIN 10.3 g/dl (13.5-17.5); LYMPH % 5.9 % (24.0-44.0); MEAN CORPUSCULAR HEMOGLOBIN 31.3 pg (27.0-33.0); MEAN CORPUSCULAR HGB CONC 34.6 g/dl (32.0-36.5); MEAN CORPUSCULAR VOLUME 90.6 fl (80.0-96.0); MONO % 5.7 % (2.0-8.0); NEUTROPHILS # 15.2 10^3/uL (1.5-8.5); NEUTROPHILS % 86.3 % (36.0-66.0); PLATELET COUNT, AUTOMATED 121 10^3/uL (150-450); RED BLOOD COUNT 3.29 10^6/uL (4.30-6.10); WHITE BLOOD COUNT 17.6 10^3/uL (4.0-10.0)
[2022-02-25 08:50] LABS: ALBUMIN 1.6 GM/DL (3.2-5.2); ALT/SGPT 19 U/L (12-78); BILIRUBIN,TOTAL 1.7 MG/DL (0.2-1.0); BLOOD UREA NITROGEN 19 MG/DL (7-18); CALCIUM LEVEL 8.8 MG/DL (8.8-10.2); CARBON DIOXIDE LEVEL 22 MEQ/L (21-32); CHLORIDE LEVEL 107 MEQ/L (98-107); CREATININE FOR GFR 0.95 MG/DL (0.70-1.30); GLOMERULAR FILTRATION RATE > 60.0 (>49); GLUCOSE, FASTING 255 MG/DL (70-100); MAGNESIUM LEVEL 1.9 MG/DL (1.8-2.4); POTASSIUM SERUM 3.9 MEQ/L (3.5-5.1); SODIUM LEVEL 137 MEQ/L (136-145); TOTAL PROTEIN 5.8 GM/DL (6.4-8.2)
[2022-02-25] MEDS: LACTULOSE 20 GM/30 ML SYRUP UD PO SCH (08:55)
[2022-02-25] MEDS: PANTOPRAZOLE 40MG VIAL IV SCH ×2 (09:06→22:16)
[2022-02-25] MEDS: LEVEMIR (INSULIN DETEMIR) 1 UNITS/0.01ML SC SCH ×2 (09:06→22:57)
[2022-02-25] MEDS: LACTULOSE 20 GM/30 ML SYRUP UD PR SCH (11:25)
[2022-02-25 13:32] LABS: C REACTIVE PROTEIN QUANTITATIV 8.07 MG/DL (0.00-0.30)
[2022-02-25] MEDS: VANCOMYCIN HCL 750 MG, VIAL MATE ADAPTER 1 EACH in D5W 250 ML IV SCH (14:32)
[2022-02-25 16:45] LABS: ALBUMIN 1.5 GM/DL (3.2-5.2); ALT/SGPT 16 U/L (12-78); BILIRUBIN,TOTAL 1.7 MG/DL (0.2-1.0); BLOOD UREA NITROGEN 20 MG/DL (7-18); CALCIUM LEVEL 8.7 MG/DL (8.8-10.2); CARBON DIOXIDE LEVEL 22 MEQ/L (21-32); CHLORIDE LEVEL 108 MEQ/L (98-107); GLOMERULAR FILTRATION RATE > 60.0 (>49); GLUCOSE, FASTING 181 MG/DL (70-100); POTASSIUM SERUM 3.7 MEQ/L (3.5-5.1); SODIUM LEVEL 138 MEQ/L (136-145); TOTAL PROTEIN 6.3 GM/DL (6.4-8.2)
[2022-02-25] MEDS: oxyCODONE 5MG TAB PO ONE (22:55)
[2022-02-25] MEDS ORDERED: LEVEMIR (INSULIN DETEMIR) 1 UNITS/0.01ML SC ONE (23:00)
[2022-02-26] VITALS (17 sets, daily range): BP systolic 135–166; BP diastolic 76–90; O2SAT 92–97
[2022-02-26] MEDS ORDERED: ONDANSETRON 4MG 2ML VIAL IV PRN
[2022-02-26] MEDS: oxyCODONE 5MG TAB PO ONE (01:01)
[2022-02-26] MEDS: VANCOMYCIN HCL 750 MG, VIAL MATE ADAPTER 1 EACH in D5W 250 ML IV SCH ×2 (02:00→13:08)
[2022-02-26] MEDS: PIPERACILLIN/TAZOBACTAM SOD 3.375 GM in D5W MINI-BAG PLUS 50 ML IV SCH (03:04)
[2022-02-26 04:33] LABS: BASO % 0.2 % (0.0-1.0); EOS # 0.1 10^3/uL (0.0-0.5); EOS % 0.8 % (0.0-3.0); HEMOGLOBIN 11.6 g/dl (13.5-17.5); LYMPH # 1.1 10^3/uL (1.5-5.0); LYMPH % 6.3 % (24.0-44.0); MEAN CORPUSCULAR HEMOGLOBIN 31.4 pg (27.0-33.0); MEAN CORPUSCULAR HGB CONC 34.1 g/dl (32.0-36.5); MEAN CORPUSCULAR VOLUME 91.9 fl (80.0-96.0); MONO % 5.9 % (2.0-8.0); NEUTROPHILS # 14.4 10^3/uL (1.5-8.5); NEUTROPHILS % 85.5 % (36.0-66.0); PLATELET COUNT, AUTOMATED 135 10^3/uL (150-450); WHITE BLOOD COUNT 16.9 10^3/uL (4.0-10.0)
[2022-02-26 04:44] LABS: INR 1.49; PROTHROMBIN TIME 18.4 SECONDS (12.7-14.5)
[2022-02-26 04:45] LABS: PARTIAL THROMBOPLASTIN TIME 33.7 SECONDS (25.9-37.0)
[2022-02-26 05:11] LABS: ALBUMIN 1.7 GM/DL (3.2-5.2); ALT/SGPT 21 U/L (12-78); BLOOD UREA NITROGEN 20 MG/DL (7-18); CALCIUM LEVEL 8.8 MG/DL (8.8-10.2); CARBON DIOXIDE LEVEL 24 MEQ/L (21-32); CHLORIDE LEVEL 109 MEQ/L (98-107); CREATININE FOR GFR 0.89 MG/DL (0.70-1.30); GLOMERULAR FILTRATION RATE > 60.0 (>49); GLUCOSE, FASTING 163 MG/DL (70-100); POTASSIUM SERUM 3.7 MEQ/L (3.5-5.1); SODIUM LEVEL 140 MEQ/L (136-145); TOTAL PROTEIN 6.9 GM/DL (6.4-8.2)
[2022-02-26 05:12] LABS: FERRITIN 560 NG/ML (26-388); LDH LACTATE DEHYDROGENASE 250 U/L (87-241); NT-PRO BNP 2060 PG/ML (<125)
[2022-02-26] MEDS: INSULIN LISPRO (NovoLOG) PER UNIT SC SCH ×5 (06:00→21:00)
[2022-02-26] MEDS: NS 1,000 ML IV SCH ×2 (06:03→17:28)
[2022-02-26] MEDS: HEPARIN SOD (PORCINE) 5000UNITS/ML 1ML VIAL/SYRINGE SQ SCH ×2 (06:25→13:08)
[2022-02-26] MEDS: LACTOBACILLUS ACIDOPHILUS CAP (BACID) PO SCH ×2 (08:00→17:27)
[2022-02-26] MEDS: LACTULOSE 20 GM/30 ML SYRUP UD PR SCH (09:00)
[2022-02-26] MEDS: PANTOPRAZOLE 40MG VIAL IV SCH (09:19)
[2022-02-26] MEDS: LEVEMIR (INSULIN DETEMIR) 1 UNITS/0.01ML SC SCH ×2 (09:20→23:01)
[2022-02-26 13:57] LABS: C REACTIVE PROTEIN QUANTITATIV 5.19 MG/DL (0.00-0.30)
[2022-02-26] MEDS ORDERED: FUROSEMIDE 40MG/4ML VIAL (J1940) IV ONE (14:25)
[2022-02-26] MEDS: LACTULOSE 20 GM/30 ML SYRUP UD PO SCH ×2 (15:43→22:55)
[2022-02-26] MEDS: SPIRONOLACTONE 50 MG TAB PO SCH (15:43)
[2022-02-26] MEDS: PERCOCET 5MG/325MG TAB PO PRN ×2 (15:44→23:03)
[2022-02-26 15:55] LABS: ALBUMIN 1.8 GM/DL (3.2-5.2); ALT/SGPT 23 U/L (12-78); BLOOD UREA NITROGEN 19 MG/DL (7-18); CALCIUM LEVEL 8.9 MG/DL (8.8-10.2); CARBON DIOXIDE LEVEL 21 MEQ/L (21-32); CHLORIDE LEVEL 108 MEQ/L (98-107); CREATININE FOR GFR 0.98 MG/DL (0.70-1.30); GLOMERULAR FILTRATION RATE > 60.0 (>49); GLUCOSE, FASTING 174 MG/DL (70-100); POTASSIUM SERUM 3.9 MEQ/L (3.5-5.1); SODIUM LEVEL 138 MEQ/L (136-145); TOTAL PROTEIN 6.7 GM/DL (6.4-8.2)
[2022-02-26] MEDS ORDERED: LIDOCAINE 1% MDV 20ML VIAL As Ordered ONE (16:34)
[2022-02-26] MEDS: ENOXAPARIN 40MG/0.4ML SYRINGE (J1650 PER 10MG) SC SCH (22:58)
[2022-02-27] VITALS: BP 164/91
[2022-02-27] MEDS: VANCOMYCIN HCL 750 MG, VIAL MATE ADAPTER 1 EACH in D5W 250 ML IV SCH ×2 (01:17→15:59)
[2022-02-27 04:00] VITALS: BP 158/82
[2022-02-27] MEDS: LACTULOSE 20 GM/30 ML SYRUP UD PO SCH ×3 (06:00→21:31)
[2022-02-27] MEDS: SODIUM CHLORIDE 0.9% INJ 10 ML SYR IV SCH ×2 (06:01→17:33)
[2022-02-27 06:43] LABS: BASO % 0.3 % (0.0-1.0); EOS # 0.3 10^3/uL (0.0-0.5); HEMATOCRIT 33.8 % (42.0-52.0); HEMOGLOBIN 11.3 g/dl (13.5-17.5); LYMPH # 1.3 10^3/uL (1.5-5.0); MEAN CORPUSCULAR HGB CONC 33.4 g/dl (32.0-36.5); MEAN CORPUSCULAR VOLUME 92.6 fl (80.0-96.0); MONO # 0.9 10^3/uL (0.0-0.8); NEUTROPHILS # 10.5 10^3/uL (1.5-8.5); NEUTROPHILS % 79.7 % (36.0-66.0); PLATELET COUNT, AUTOMATED 119 10^3/uL (150-450); RED BLOOD COUNT 3.65 10^6/uL (4.30-6.10); WHITE BLOOD COUNT 13.1 10^3/uL (4.0-10.0)
[2022-02-27 07:16] LABS: ALBUMIN 1.7 GM/DL (3.2-5.2); ALT/SGPT 17 U/L (12-78); BILIRUBIN,TOTAL 1.9 MG/DL (0.2-1.0); BLOOD UREA NITROGEN 17 MG/DL (7-18); CARBON DIOXIDE LEVEL 23 MEQ/L (21-32); CHLORIDE LEVEL 107 MEQ/L (98-107); CREATININE FOR GFR 0.86 MG/DL (0.70-1.30); GLOMERULAR FILTRATION RATE > 60.0 (>49); GLUCOSE, FASTING 161 MG/DL (70-100); POTASSIUM SERUM 3.7 MEQ/L (3.5-5.1); SODIUM LEVEL 137 MEQ/L (136-145); TOTAL PROTEIN 6.8 GM/DL (6.4-8.2)
[2022-02-27 07:17] VITALS: BP 154/87
[2022-02-27] MEDS: PANTOPRAZOLE 40MG TAB (PROTONIX) PO SCH (09:01)
[2022-02-27] MEDS: SPIRONOLACTONE 50 MG TAB PO SCH (09:01)
[2022-02-27] MEDS: INSULIN LISPRO (NovoLOG) PER UNIT SC SCH ×4 (09:01→21:30)
[2022-02-27] MEDS: LACTOBACILLUS ACIDOPHILUS CAP (BACID) PO SCH ×2 (09:01→17:33)
[2022-02-27] MEDS: LEVEMIR (INSULIN DETEMIR) 1 UNITS/0.01ML SC SCH ×2 (09:02→21:30)
[2022-02-27] MEDS: ENOXAPARIN 40MG/0.4ML SYRINGE (J1650 PER 10MG) SC SCH ×2 (09:02→21:31)
[2022-02-27 16:00] VITALS: BP 150/82
[2022-02-27 17:04] LABS: ALBUMIN 1.8 GM/DL (3.2-5.2); ALT/SGPT 18 U/L (12-78); BILIRUBIN,TOTAL 1.6 MG/DL (0.2-1.0); BLOOD UREA NITROGEN 17 MG/DL (7-18); CALCIUM LEVEL 8.9 MG/DL (8.8-10.2); CARBON DIOXIDE LEVEL 23 MEQ/L (21-32); CHLORIDE LEVEL 104 MEQ/L (98-107); GLOMERULAR FILTRATION RATE > 60.0 (>49); GLUCOSE, FASTING 237 MG/DL (70-100); SODIUM LEVEL 137 MEQ/L (136-145); TOTAL PROTEIN 6.6 GM/DL (6.4-8.2)
[2022-02-27 20:00] VITALS: BP 141/71
[2022-02-27] MEDS: tiZANidine 4 MG TAB PO SCH (22:58)
[2022-02-28] VITALS (8 sets, daily range): BP systolic 86–126; BP diastolic 50–74
[2022-02-28] MEDS: VANCOMYCIN HCL 750 MG, VIAL MATE ADAPTER 1 EACH in D5W 250 ML IV SCH (01:54)
[2022-02-28] MEDS: LACTULOSE 20 GM/30 ML SYRUP UD PO SCH ×3 (05:31→21:18)
[2022-02-28] MEDS: SODIUM CHLORIDE 0.9% INJ 10 ML SYR IV SCH ×2 (05:36→18:32)
[2022-02-28 06:45] LABS: INR 1.57; PROTHROMBIN TIME 19.2 SECONDS (12.7-14.5)
[2022-02-28 06:46] LABS: PARTIAL THROMBOPLASTIN TIME 41.7 SECONDS (25.9-37.0)
[2022-02-28 06:50] LABS: C REACTIVE PROTEIN QUANTITATIV 3.94 MG/DL (0.00-0.30)
[2022-02-28] MEDS: INSULIN LISPRO (NovoLOG) PER UNIT SC SCH ×4 (09:17→21:00)
[2022-02-28] MEDS: LACTOBACILLUS ACIDOPHILUS CAP (BACID) PO SCH ×2 (09:18→18:31)
[2022-02-28] MEDS: tiZANidine 4 MG TAB PO SCH (09:18)
[2022-02-28] MEDS: ENOXAPARIN 40MG/0.4ML SYRINGE (J1650 PER 10MG) SC SCH ×2 (09:18→21:18)
[2022-02-28] MEDS: FUROSEMIDE 20 MG TAB PO SCH (09:18)
[2022-02-28] MEDS: SPIRONOLACTONE 50 MG TAB PO SCH (09:18)
[2022-02-28] MEDS: PANTOPRAZOLE 40MG TAB (PROTONIX) PO SCH (09:18)
[2022-02-28 09:50] LABS: HEMATOCRIT 31.5 % (42.0-52.0); HEMOGLOBIN 10.5 g/dl (13.5-17.5); MEAN CORPUSCULAR HEMOGLOBIN 31.2 pg (27.0-33.0); MEAN CORPUSCULAR HGB CONC 33.3 g/dl (32.0-36.5); MEAN CORPUSCULAR VOLUME 93.5 fl (80.0-96.0); PLATELET COUNT, AUTOMATED 102 10^3/uL (150-450); RED BLOOD COUNT 3.37 10^6/uL (4.30-6.10); WHITE BLOOD COUNT 12.1 10^3/uL (4.0-10.0)
[2022-02-28 10:16] LABS: BLOOD UREA NITROGEN 17 MG/DL (7-18); CALCIUM LEVEL 8.3 MG/DL (8.8-10.2); CARBON DIOXIDE LEVEL 25 MEQ/L (21-32); CHLORIDE LEVEL 103 MEQ/L (98-107); GLOMERULAR FILTRATION RATE > 60.0 (>49); GLUCOSE, FASTING 256 MG/DL (70-100); POTASSIUM SERUM 4.1 MEQ/L (3.5-5.1); SODIUM LEVEL 133 MEQ/L (136-145)
[2022-02-28] MEDS ORDERED: VANCOMYCIN HCL 1,000 MG, VIAL MATE ADAPTER 1 EACH in D5W 250 ML IV ONE (17:00)
[2022-02-28] MEDS: LEVEMIR (INSULIN DETEMIR) 1 UNITS/0.01ML SC SCH (21:18)
[2022-02-28] MEDS: MIDODRINE 5 MG TAB PO SCH (23:01)
[2022-03-01] VITALS (9 sets, daily range): BP systolic 98–155; BP diastolic 53–77
[2022-03-01 05:06] LABS: HEMATOCRIT 31.1 % (42.0-52.0); HEMOGLOBIN 10.4 g/dl (13.5-17.5); MEAN CORPUSCULAR HEMOGLOBIN 30.8 pg (27.0-33.0); MEAN CORPUSCULAR HGB CONC 33.4 g/dl (32.0-36.5); PLATELET COUNT, AUTOMATED 124 10^3/uL (150-450); RED BLOOD COUNT 3.38 10^6/uL (4.30-6.10); WHITE BLOOD COUNT 14.9 10^3/uL (4.0-10.0)
[2022-03-01] MEDS: SODIUM CHLORIDE 0.9% INJ 10 ML SYR IV SCH ×2 (05:10→18:36)
[2022-03-01] MEDS: LACTULOSE 20 GM/30 ML SYRUP UD PO SCH ×3 (05:10→21:10)
[2022-03-01 05:24] LABS: BLOOD UREA NITROGEN 21 MG/DL (7-18); CALCIUM LEVEL 8.2 MG/DL (8.8-10.2); CARBON DIOXIDE LEVEL 26 MEQ/L (21-32); CHLORIDE LEVEL 103 MEQ/L (98-107); CREATININE FOR GFR 1.13 MG/DL (0.70-1.30); GLOMERULAR FILTRATION RATE > 60.0 (>49); GLUCOSE, FASTING 167 MG/DL (70-100); POTASSIUM SERUM 4.1 MEQ/L (3.5-5.1); SODIUM LEVEL 133 MEQ/L (136-145)
[2022-03-01] MEDS: MIDODRINE 5 MG TAB PO SCH ×3 (08:00→16:00)
[2022-03-01] MEDS: VANCOMYCIN HCL 750 MG, VIAL MATE ADAPTER 1 EACH in D5W 250 ML IV SCH ×2 (08:45→10:10)
[2022-03-01] MEDS: ENOXAPARIN 40MG/0.4ML SYRINGE (J1650 PER 10MG) SC SCH ×2 (08:45→21:10)
[2022-03-01] MEDS: FUROSEMIDE 20 MG TAB PO SCH (08:46)
[2022-03-01] MEDS: LACTOBACILLUS ACIDOPHILUS CAP (BACID) PO SCH ×2 (08:46→18:34)
[2022-03-01] MEDS: PANTOPRAZOLE 40MG TAB (PROTONIX) PO SCH (08:46)
[2022-03-01] MEDS: INSULIN LISPRO (NovoLOG) PER UNIT SC SCH ×4 (08:46→21:09)
[2022-03-01] MEDS: SPIRONOLACTONE 25 MG TAB PO SCH ×2 (08:46→17:00)
[2022-03-01] MEDS: PERCOCET 5MG/325MG TAB PO PRN ×2 (08:47→16:53)
[2022-03-01 16:53] LABS: SPEC. GRAVITY BODY FLUIDS 1.013 (NOT ESTABLISHED)
[2022-03-01 17:04] LABS: ASCITES FL COLOR PALE YELLOW (COLORLESS); SOURCE, BODY FLUID ASCITES
[2022-03-01 17:05] LABS: APPEARANCE, BODY FLUID CLEAR (CLEAR)
[2022-03-01 17:18] LABS: SOURCE, BODY FLUID ALBUMIN ASCITES; SOURCE, BODY FLUID GLUCOSE ASCITES; SOURCE, BODY FLUID TOT PROTEIN ASCITES; TOTAL PROTEIN, BODY FLUID 0.8 G/DL (NOT ESTABLISHED)
[2022-03-01] MEDS: tiZANidine 4 MG TAB PO SCH (21:08)
[2022-03-01] MEDS: LEVEMIR (INSULIN DETEMIR) 1 UNITS/0.01ML SC SCH (21:10)
[2022-03-02] VITALS (17 sets, daily range): BP systolic 82–125; BP diastolic 48–72
[2022-03-02] MEDS ORDERED: NS 500 ML IV ONE (00:15)
[2022-03-02] MEDS: LACTULOSE 20 GM/30 ML SYRUP UD PO SCH ×3 (05:06→21:31)
[2022-03-02] MEDS: SODIUM CHLORIDE 0.9% INJ 10 ML SYR IV SCH ×2 (05:21→12:12)
[2022-03-02 06:17] LABS: BLOOD UREA NITROGEN 17 MG/DL (7-18); CALCIUM LEVEL 8.2 MG/DL (8.8-10.2); CARBON DIOXIDE LEVEL 25 MEQ/L (21-32); CHLORIDE LEVEL 103 MEQ/L (98-107); CREATININE FOR GFR 1.17 MG/DL (0.70-1.30); GLOMERULAR FILTRATION RATE > 60.0 (>49); GLUCOSE, FASTING 245 MG/DL (70-100); POTASSIUM SERUM 4.2 MEQ/L (3.5-5.1); SODIUM LEVEL 134 MEQ/L (136-145)
[2022-03-02] MEDS: SODIUM CHLORIDE 0.9% INJ 10 ML SYR IV PRN ×2 (06:28→10:04)
[2022-03-02 07:42] LABS: HEMATOCRIT 30.8 % (42.0-52.0); HEMOGLOBIN 10.4 g/dl (13.5-17.5); MEAN CORPUSCULAR HEMOGLOBIN 31.5 pg (27.0-33.0); MEAN CORPUSCULAR HGB CONC 33.8 g/dl (32.0-36.5); MEAN CORPUSCULAR VOLUME 93.3 fl (80.0-96.0); WHITE BLOOD COUNT 10.7 10^3/uL (4.0-10.0)
[2022-03-02 07:45] LABS: PLATELET COUNT, AUTOMATED 91 10^3/uL (150-450)
[2022-03-02] MEDS: VANCOMYCIN HCL 750 MG, VIAL MATE ADAPTER 1 EACH in D5W 250 ML IV SCH ×2 (08:06→10:50)
[2022-03-02] MEDS: LACTOBACILLUS ACIDOPHILUS CAP (BACID) PO SCH ×2 (08:06→17:40)
[2022-03-02] MEDS: INSULIN LISPRO (NovoLOG) PER UNIT SC SCH ×7 (08:07→19:57)
[2022-03-02] MEDS: MIDODRINE 5 MG TAB PO SCH ×3 (08:07→16:15)
[2022-03-02] MEDS: PANTOPRAZOLE 40MG TAB (PROTONIX) PO SCH (10:51)
[2022-03-02] MEDS: FUROSEMIDE 20 MG TAB PO SCH (10:51)
[2022-03-02] MEDS: SPIRONOLACTONE 25 MG TAB PO SCH ×2 (10:51→16:15)
[2022-03-02] MEDS: tiZANidine 4 MG TAB PO SCH ×2 (10:51→20:30)
[2022-03-02] MEDS: ENOXAPARIN 40MG/0.4ML SYRINGE (J1650 PER 10MG) SC SCH ×2 (10:51→20:30)
[2022-03-02] MEDS: LEVEMIR (INSULIN DETEMIR) 1 UNITS/0.01ML SC SCH (20:30)
[2022-03-02 20:41] LABS: VANCOMYCIN RANDOM 19.4 UG/ML
[2022-03-03 00:17] VITALS: BP 98/53
[2022-03-03 00:57] VITALS: BP 103/56
[2022-03-03 04:00] VITALS: BP 98/58
[2022-03-03] MEDS: SODIUM CHLORIDE 0.9% INJ 10 ML SYR IV SCH ×2 (04:47→17:18)
[2022-03-03] MEDS: LACTULOSE 20 GM/30 ML SYRUP UD PO SCH ×3 (05:11→21:06)
[2022-03-03 05:43] LABS: HEMATOCRIT 28.5 % (42.0-52.0); HEMOGLOBIN 9.6 g/dl (13.5-17.5); MEAN CORPUSCULAR HEMOGLOBIN 31.7 pg (27.0-33.0); MEAN CORPUSCULAR HGB CONC 33.7 g/dl (32.0-36.5); MEAN CORPUSCULAR VOLUME 94.1 fl (80.0-96.0); PLATELET COUNT, AUTOMATED 85 10^3/uL (150-450); RED BLOOD COUNT 3.03 10^6/uL (4.30-6.10)
[2022-03-03 06:09] LABS: BLOOD UREA NITROGEN 18 MG/DL (7-18); CALCIUM LEVEL 8.3 MG/DL (8.8-10.2); CARBON DIOXIDE LEVEL 26 MEQ/L (21-32); CHLORIDE LEVEL 102 MEQ/L (98-107); CREATININE FOR GFR 1.19 MG/DL (0.70-1.30); GLOMERULAR FILTRATION RATE > 60.0 (>49); GLUCOSE, FASTING 262 MG/DL (70-100); POTASSIUM SERUM 4.4 MEQ/L (3.5-5.1); SODIUM LEVEL 132 MEQ/L (136-145)
[2022-03-03] MEDS: LACTOBACILLUS ACIDOPHILUS CAP (BACID) PO SCH ×2 (08:58→17:17)
[2022-03-03] MEDS: ENOXAPARIN 40MG/0.4ML SYRINGE (J1650 PER 10MG) SC SCH ×2 (08:58→20:33)
[2022-03-03] MEDS: MIDODRINE 5 MG TAB PO SCH ×3 (08:59→15:56)
[2022-03-03] MEDS: tiZANidine 4 MG TAB PO SCH ×2 (08:59→20:32)
[2022-03-03] MEDS: PANTOPRAZOLE 40MG TAB (PROTONIX) PO SCH (08:59)
[2022-03-03] MEDS: INSULIN LISPRO (NovoLOG) PER UNIT SC SCH ×7 (09:00→20:15)
[2022-03-03] MEDS: VANCOMYCIN HCL 750 MG, VIAL MATE ADAPTER 1 EACH in D5W 250 ML IV SCH ×2 (09:01)
[2022-03-03] MEDS: SODIUM CHLORIDE 0.9% INJ 10 ML SYR IV PRN (12:03)
[2022-03-03 12:11] VITALS: BP 105/68
[2022-03-03 12:18] LABS: C REACTIVE PROTEIN QUANTITATIV 2.62 MG/DL (0.00-0.30)
[2022-03-03 15:56] VITALS: BP 102/59
[2022-03-03] MEDS: PERCOCET 5MG/325MG TAB PO PRN (16:21)
[2022-03-03] MEDS: LEVEMIR (INSULIN DETEMIR) 1 UNITS/0.01ML SC SCH (20:33)
[2022-03-03] MEDS ORDERED: RAMELTEON 8 MG TAB (ROZEREM) PO PRN (23:35)
[2022-03-04 04:00] VITALS: BP 103/58
[2022-03-04] MEDS: LACTULOSE 20 GM/30 ML SYRUP UD PO SCH ×3 (06:00→22:03)
[2022-03-04] MEDS: SODIUM CHLORIDE 0.9% INJ 10 ML SYR IV SCH ×2 (06:57→17:06)
[2022-03-04] MEDS: MIDODRINE 5 MG TAB PO SCH ×3 (08:00→16:00)
[2022-03-04] MEDS: INSULIN LISPRO (NovoLOG) PER UNIT SC SCH ×4 (08:24→22:04)
[2022-03-04] MEDS: ENOXAPARIN 40MG/0.4ML SYRINGE (J1650 PER 10MG) SC SCH ×2 (08:24→22:24)
[2022-03-04] MEDS: LACTOBACILLUS ACIDOPHILUS CAP (BACID) PO SCH ×2 (08:25→17:08)
[2022-03-04] MEDS: PANTOPRAZOLE 40MG TAB (PROTONIX) PO SCH (08:25)
[2022-03-04] MEDS: tiZANidine 4 MG TAB PO SCH ×2 (08:26→22:04)
[2022-03-04] MEDS: PERCOCET 5MG/325MG TAB PO PRN (08:27)
[2022-03-04 08:28] VITALS: BP 111/65
[2022-03-04] MEDS: VANCOMYCIN HCL 1,000 MG, VIAL MATE ADAPTER 1 EACH in D5W 250 ML IV SCH (10:52)
[2022-03-04] MEDS: SODIUM CHLORIDE 0.9% INJ 10 ML SYR IV PRN (12:31)
[2022-03-04 12:32] VITALS: BP 110/64
[2022-03-04] MEDS: LEVEMIR (INSULIN DETEMIR) 1 UNITS/0.01ML SC SCH (22:03)
[2022-03-05] MEDS: PERCOCET 5MG/325MG TAB PO PRN ×2 (01:22→13:02)
[2022-03-05 04:00] VITALS: BP 92/54
[2022-03-05] MEDS: MIDODRINE 5 MG TAB PO SCH ×3 (04:59→16:00)
[2022-03-05] MEDS: LACTULOSE 20 GM/30 ML SYRUP UD PO SCH ×2 (05:00→13:03)
[2022-03-05] MEDS: SODIUM CHLORIDE 0.9% INJ 10 ML SYR IV SCH ×2 (05:00→17:19)
[2022-03-05] MEDS: PANTOPRAZOLE 40MG TAB (PROTONIX) PO SCH (08:23)
[2022-03-05] MEDS: tiZANidine 4 MG TAB PO SCH (08:23)
[2022-03-05] MEDS: LACTOBACILLUS ACIDOPHILUS CAP (BACID) PO SCH ×2 (08:23→17:19)
[2022-03-05] MEDS: INSULIN LISPRO (NovoLOG) PER UNIT SC SCH ×4 (08:24→19:46)
[2022-03-05] MEDS: ENOXAPARIN 40MG/0.4ML SYRINGE (J1650 PER 10MG) SC SCH (08:24)
[2022-03-05] MEDS: VANCOMYCIN HCL 1,000 MG, VIAL MATE ADAPTER 1 EACH in D5W 250 ML IV SCH (10:32)
[2022-03-05] MEDS ORDERED: PERCOCET PO (18:59)
[2022-03-05] MEDS ORDERED: MIDO5TA PO (18:59)
[2022-03-05] MEDS ORDERED: PANT40TA29 PO (18:59)
[2022-03-05] MEDS ORDERED: LACT20EL PO (18:59)
[2022-03-05] MEDS ORDERED: LANC30MI XX (19:04)
[2022-03-05] MEDS ORDERED: INSU1MIS20 SC (19:04)
[2022-03-05] MEDS ORDERED: GLUC1TES2 XX (19:04)
[2022-03-05] MEDS ORDERED: ALCOPAD25 TOP (19:04)
[2022-03-05] MEDS ORDERED: BLOOKIT21 XX (19:04)
[2022-03-05] MEDS ORDERED: INSUDET SC (19:11)
[2022-03-05] MEDS ORDERED: INSUHUMDS SC (19:11)
[2022-03-05] MEDS: LEVEMIR (INSULIN DETEMIR) 1 UNITS/0.01ML SC SCH (19:46)
== END 2022-03-05 20:00 | disposition home or self-care (01) | DRG 856 ==
LOC: EDBD 14:43 → M ED 14:43 → M ED INP 18:46 → M PCU 02-23 14:59 → M 4MAIN 03-02 16:54
PROVIDERS: ADMIT Internal Medicine; ATTEND Internal Medicine
PROC: 0QPK04Z Removal of Internal Fixation Device from Left Fibula, Open Approach (ICD-10-PCS; 2022-02-23)
PROC: 0HBNXZZ Excision of Left Foot Skin, External Approach (ICD-10-PCS; 2022-02-23)
PROC: 0JBR0ZZ Excision of Left Foot Subcutaneous Tissue and Fascia, Open Approach (ICD-10-PCS; principal; 2022-02-23 18:30)
PROC: 02HV33Z Insertion of Infusion Device into Superior Vena Cava, Percutaneous Approach (ICD-10-PCS; 2022-02-27)
PROC: 0Y9L0ZZ Drainage of Left Ankle Region, Open Approach (ICD-10-PCS; 2022-03-01)
DX: T81.49XA Infection following a procedure, other surgical site, initial encounter (principal); A41.9 Sepsis, unspecified organism; U07.1 COVID-19; G93.41 Metabolic encephalopathy; E87.2 Acidosis; M00.9 Pyogenic arthritis, unspecified; E72.20 Disorder of urea cycle metabolism, unspecified; R18.8 Other ascites; S92.135 Nondisplaced fracture of posterior process of left talus; M86.172 Other acute osteomyelitis, left ankle and foot; T81.30XA Disruption of wound, unspecified, initial encounter; I10 Essential (primary) hypertension; K75.81 Nonalcoholic steatohepatitis (NASH); M48.00 Spinal stenosis, site unspecified; K74.60 Unspecified cirrhosis of liver; E11.69 Type 2 diabetes mellitus with other specified complication; E11.65 Type 2 diabetes mellitus with hyperglycemia; G89.4 Chronic pain syndrome; Z79.4 Long term (current) use of insulin; E11.42 Type 2 diabetes mellitus with diabetic polyneuropathy; D69.6 Thrombocytopenia, unspecified; Z79.899 Other long term (current) drug therapy; E83.42 Hypomagnesemia; Y83.1 Surgical operation with implant of artificial internal device as the cause of abnormal reaction of the patient, or of later complication, without mention of misadventure at the time of the procedure

== ENCOUNTER → 2022-02-22 | Outpatient (CLI) | payer OTHER ==
[~2022-02-22] MED LIST changes: +IBUP200T46 PO
== END ==
LOC: M SOG 08:11
PROVIDERS: ATTEND Physician Assistant
DX: M25.472 Effusion, left ankle (principal); S82.842D Displaced bimalleolar fracture of left lower leg, subsequent encounter for closed fracture with routine healing

== ENCOUNTER 2022-03-11 07:31 | Inpatient (IN) | payer OTHER ==
[2022-03-11] VITALS (34 sets, daily range): BP systolic 78–111; BP diastolic 41–55
[~2022-03-11] VITALS: Ht 180.3 cm; Wt 89.4 kg
[~2022-03-11 07:31] MED LIST changes: +ALCOPAD25 TOP; +BLOOKIT21 XX; +GLUC1TES2 XX; +IBUP200T46 PO; +INSU1MIS20 SC; +INSUDET SC; +INSUHUMDS SC; +LANC30MI XX; +MIDO5TA PO; +PANT40TA29 PO; +PERCOCET PO
[2022-03-11] MEDS ORDERED: ALBUTEROL SULFATE 2.5 MG/0.5 ML INH NEB SOLN INH ONE (07:50)
[2022-03-11] MEDS ORDERED: IPRATROPIUM 0.5MG/ALBUTEROL 2.5MG INH SOL UD 3ML (DUONEB) NEB ONE (07:50)
[2022-03-11] MEDS ORDERED: methylPREDNISolone 125MG 2ML VIAL IV ONE (07:50)
[2022-03-11] MEDS ORDERED: NS 1,000 ML IV ONE (08:00)
[2022-03-11] MEDS ORDERED: LIDOCAINE 2% 5ML JELLY UROJET TOP ONE (08:00)
[2022-03-11] MEDS ORDERED: NS 2,100 ML in IV 1 EA IV ONE (08:00)
[2022-03-11] MEDS ORDERED: PIPERACILLIN/TAZOBACTAM SOD 4.5 GM in D5W MINI-BAG PLUS 50 ML IV ONE (08:00)
[2022-03-11 08:29] LABS: BASO # 0.1 10^3/uL (0.0-0.2); BASO % 0.7 % (0.0-1.0); EOS % 0.2 % (0.0-3.0); HEMATOCRIT 31.3 % (42.0-52.0); HEMOGLOBIN 10.1 g/dl (13.5-17.5); LYMPH # 0.9 10^3/uL (1.5-5.0); LYMPH % 7.1 % (24.0-44.0); MEAN CORPUSCULAR HEMOGLOBIN 32.1 pg (27.0-33.0); MEAN CORPUSCULAR HGB CONC 32.3 g/dl (32.0-36.5); MEAN CORPUSCULAR VOLUME 99.4 fl (80.0-96.0); MONO # 1.1 10^3/uL (0.0-0.8); MONO % 8.3 % (2.0-8.0); NEUTROPHILS # 10.6 10^3/uL (1.5-8.5); NEUTROPHILS % 80.9 % (36.0-66.0); PLATELET COUNT, AUTOMATED 186 10^3/uL (150-450); RED BLOOD COUNT 3.15 10^6/uL (4.30-6.10); WHITE BLOOD COUNT 13.1 10^3/uL (4.0-10.0)
[2022-03-11 08:39] LABS: INR 1.47; PROTHROMBIN TIME 18.3 SECONDS (12.7-14.5)
[2022-03-11 08:40] LABS: PARTIAL THROMBOPLASTIN TIME 36.7 SECONDS (25.9-37.0)
[2022-03-11 09:01] LABS: ERYTHROCYTE SEDIMENTATION RATE 60 mm/hr (0-20)
[2022-03-11 09:06] LABS: CK-MB VALUE MASS 1.1 NG/ML (<3.6); MB/CK RELATIVE INDEX 3.79 (< OR =4)
[2022-03-11] MEDS: NOREPINEPHRINE/DEXTROSE 8 MG in IV 492 EA IV SCH ×4 (09:07→14:21)
[2022-03-11 09:09] LABS: ACETAMINOPHEN LEVEL < 2.0 UG/ML (10.0-30.0); ETHYL ALCOHOL (ETHANOL) < 0.003 % (0.000-0.010); SALICYLATE LEVEL < 1.7 MG/DL (5.0-30.0)
[2022-03-11 09:13] LABS: BILIRUBIN,TOTAL 2.2 MG/DL (0.2-1.0); C REACTIVE PROTEIN QUANTITATIV 2.02 MG/DL (0.00-0.30); CALCIUM LEVEL 8.6 MG/DL (8.8-10.2); CREATININE FOR GFR 2.13 MG/DL (0.70-1.30); FREE T4 1.42 NG/DL (0.76-1.46); POTASSIUM SERUM 5.3 MEQ/L (3.5-5.1); THYROID STIMULATING HORMONE 13.4 uIU/ML (0.358-3.740); TOTAL PROTEIN 6.3 GM/DL (6.4-8.2)
[2022-03-11] MEDS ORDERED: VASOPRESSIN INJ 20 UNITS in NS 500 ML IV SCH (09:45)
[2022-03-11] MEDS: VASOPRESSIN INJ 20 UNITS in NS 499 ML IV SCH ×3 (09:47→19:40)
[2022-03-11 10:04] LABS: BACTERIA, URINE SMALL AMOUNT; HYALINE CAST, URINE 0-1 /lpf (0-1); SQUAMOUS EPITHELIAL CELL URINE SMALL AMOUNT /hpf (SMALL AMT); TRANSITIONAL EPI CELLS, URINE SMALL AMOUNT /hpf; WBC, URINE 0-1 /hpf (0-3)
[2022-03-11] MEDS ORDERED: INSUDET SC (10:07)
[2022-03-11] MEDS ORDERED: LACT10SO3 PO (10:07)
[2022-03-11] MEDS ORDERED: PERC10TA26 PO (10:07)
[2022-03-11] MEDS ORDERED: HUMA100I3 SC (10:07)
[2022-03-11 10:09] LABS: AMPHETAMINES LEVEL URINE NEGATIVE (NEGATIVE); BARBITURATES URINE NEGATIVE (NEGATIVE); BENZODIAZEPINES URINE NEGATIVE (NEGATIVE); CANNABINOIDS URINE NEGATIVE (NEGATIVE); COCAINE METABOLITE URINE NEGATIVE (NEGATIVE); METHADONE URINE NEGATIVE (NEGATIVE); OPIATES URINE POSITIVE (NEGATIVE); PHENCYCLIDINE URINE NEGATIVE (NEGATIVE)
[2022-03-11] MEDS ORDERED: HOME MED LIST COMPLETE! XX SCH (10:10)
[2022-03-11 10:11] LABS: CK-MB VALUE MASS 1.4 NG/ML (<3.6); MB/CK RELATIVE INDEX 3.78 (< OR =4)
[2022-03-11] MEDS ORDERED: VASOPRESSIN INJ 20 UNITS/ML VIAL As Ordered ONE (11:08)
[2022-03-11 12:49] LABS: INFLUENZA A AMPLIFICATION NEGATIVE (NEGATIVE); INFLUENZA B AMPLIFICATION NEGATIVE (NEGATIVE)
[2022-03-11] MEDS ORDERED: INSULIN LISPRO (NovoLOG) PER UNIT SC SCH (17:30)
[2022-03-11 18:10] LABS: ABG BASE EXCESS -25.1 (-2.0-2.0); ABG HCO3 4.8 MEQ/L (22.0-26.0); ABG O2 SATURATION 97.7 % (95.0-99.0); ABG PARTIAL PRESSURE CO2 20.5 mmHg (35.0-45.0); ABG PARTIAL PRESSURE O2 122.8 mmHg (75.0-100.0); ABG STANDARD HCO3 6.9 MEQ/L (22.0-26.0); ABG TOTAL CO2 5.5 MEQ/L (23.0-31.0)
[2022-03-11 18:11] LABS: ABG pH (ARTERIAL) 6.991 UNITS (7.350-7.450)
[2022-03-11] MEDS: NOREPINEPHRINE/DEXTROSE 8 MG in IV 1 EA IV SCH (18:20)
[2022-03-11] MEDS ORDERED: SODIUM BICARBONATE 8.4% INJ 50 ML SYRINGE As Ordered ONE ×2 (18:38→19:44)
[2022-03-11] MEDS ORDERED: SODIUM BICARBONATE 8.4% INJ 50 ML SYRINGE IV STA ×2 (18:40→19:45)
[2022-03-11] MEDS ORDERED: LIDOCAINE 1% MDV 20ML VIAL As Ordered ONE (18:44)
[2022-03-11] MEDS ORDERED: DEXTROSE 50% 50 ML SYRINGE IV PRN (19:10)
[2022-03-11] MEDS ORDERED: NS 1,000 ML IV SCH (19:10)
[2022-03-11] MEDS ORDERED: GLUCOSE 4GM CHEW TABLET PO PRN (19:10)
[2022-03-11] MEDS ORDERED: GLUCAGON INJ 1MG VIAL SC PRN (19:10)
[2022-03-11 20:01] LABS: ABG O2 SATURATION 98.9 % (95.0-99.0)
[2022-03-11 20:04] LABS: ABG BASE EXCESS -19.4 (-2.0-2.0); ABG HCO3 7.5 MEQ/L (22.0-26.0); ABG PARTIAL PRESSURE CO2 21.4 mmHg (35.0-45.0); ABG PARTIAL PRESSURE O2 145.1 mmHg (75.0-100.0); ABG TOTAL CO2 8.1 MEQ/L (23.0-31.0); ABG pH (ARTERIAL) 7.161 UNITS (7.350-7.450)
[2022-03-11] MEDS ORDERED: LIDOCAINE 1% MDV 20ML VIAL SC ONE (20:25)
[2022-03-11 20:59] LABS: APPEARANCE, BODY FLUID HAZY (CLEAR); PLEURAL FL COLOR YELLOW (COLORLESS); SOURCE, BODY FLUID PLEURAL
[2022-03-11] MEDS: ENOXAPARIN 30MG/0.3ML SYRINGE (J1650 PER 10MG) SC SCH (21:00)
[2022-03-11] MEDS: SODIUM BICARBONATE 150 MEQ in STERILE WATER LITER BAG 1,000 ML IV SCH (21:36)
[2022-03-11] MEDS: tiZANidine 4 MG TAB PO SCH (21:36)
[2022-03-11] MEDS: PIPERACILLIN/TAZOBACTAM SOD 3.375 GM in D5W MINI-BAG PLUS 50 ML IV SCH (21:37)
[2022-03-11] MEDS ORDERED: VANCOMYCIN HCL 1,000 MG, VIAL MATE ADAPTER 1 EACH in D5W 250 ML IV ONE (23:00)
[2022-03-11] MEDS: INSULIN LISPRO (NovoLOG) PER UNIT SC SCH (23:51)
[2022-03-12] VITALS (93 sets, daily range): BP systolic 80–144; BP diastolic 37–67
[2022-03-12 00:07] LABS: ABG BASE EXCESS -21.1 (-2.0-2.0); ABG HCO3 6.5 MEQ/L (22.0-26.0); ABG PARTIAL PRESSURE CO2 20.6 mmHg (35.0-45.0); ABG PARTIAL PRESSURE O2 116.5 mmHg (75.0-100.0); ABG TOTAL CO2 7.1 MEQ/L (23.0-31.0)
[2022-03-12 00:09] LABS: ABG pH (ARTERIAL) 7.118 UNITS (7.350-7.450)
[2022-03-12] MEDS: NOREPINEPHRINE/DEXTROSE 8 MG in IV 1 EA IV SCH ×3 (03:43→16:07)
[2022-03-12] MEDS: PIPERACILLIN/TAZOBACTAM SOD 3.375 GM in D5W MINI-BAG PLUS 50 ML IV SCH ×4 (04:33→22:28)
[2022-03-12] MEDS: VASOPRESSIN INJ 20 UNITS in NS 499 ML IV SCH ×3 (04:36→20:45)
[2022-03-12 05:17] LABS: ABG BASE EXCESS -18.2 (-2.0-2.0); ABG O2 SATURATION 98.1 % (95.0-99.0); ABG PARTIAL PRESSURE CO2 20.8 mmHg (35.0-45.0); ABG PARTIAL PRESSURE O2 120.6 mmHg (75.0-100.0); ABG STANDARD HCO3 10.8 MEQ/L (22.0-26.0); ABG TOTAL CO2 8.6 MEQ/L (23.0-31.0)
[2022-03-12 05:19] LABS: ABG pH (ARTERIAL) 7.201 UNITS (7.350-7.450)
[2022-03-12] MEDS: INSULIN LISPRO (NovoLOG) PER UNIT SC SCH ×3 (05:45→17:49)
[2022-03-12 05:51] LABS: HEMATOCRIT 31.7 % (42.0-52.0); MEAN CORPUSCULAR HEMOGLOBIN 31.4 pg (27.0-33.0); MEAN CORPUSCULAR HGB CONC 31.5 g/dl (32.0-36.5); MEAN CORPUSCULAR VOLUME 99.7 fl (80.0-96.0); PLATELET COUNT, AUTOMATED 177 10^3/uL (150-450); RED BLOOD COUNT 3.18 10^6/uL (4.30-6.10); WHITE BLOOD COUNT 19.5 10^3/uL (4.0-10.0)
[2022-03-12 06:22] LABS: CREATININE FOR GFR 2.92 MG/DL (0.70-1.30); GLOMERULAR FILTRATION RATE 22.9 (>49); POTASSIUM SERUM 5.8 MEQ/L (3.5-5.1)
[2022-03-12] MEDS ORDERED: SODIUM BICARBONATE 8.4% INJ 50 ML SYRINGE IV STA (08:05)
[2022-03-12] MEDS ORDERED: HumuLIN R (REGULAR) INSULIN (NovoLIN R) **100U/ML** PER UNIT IV STA (08:05)
[2022-03-12] MEDS: tiZANidine 4 MG TAB PO SCH ×2 (08:46→20:40)
[2022-03-12] MEDS ORDERED: SOD POLYSTYRENE SULFONATE SUSP 15GM 60ML UD PO ONE (09:00)
[2022-03-12] MEDS ORDERED: NS 500 ML IV ONE (09:00)
[2022-03-12 09:35] LABS: ABG BASE EXCESS -10.8 (-2.0-2.0); ABG HCO3 13.8 MEQ/L (22.0-26.0); ABG PARTIAL PRESSURE O2 93.4 mmHg (75.0-100.0); ABG STANDARD HCO3 15.9 MEQ/L (22.0-26.0); ABG TOTAL CO2 14.6 MEQ/L (23.0-31.0); ABG pH (ARTERIAL) 7.327 UNITS (7.350-7.450)
[2022-03-12] MEDS: SODIUM BICARBONATE 150 MEQ in STERILE WATER LITER BAG 1,000 ML IV SCH ×2 (09:43→20:49)
[2022-03-12 09:56] LABS: ACETONE/KETONE 3.74 MG/DL (<2.81); VANCOMYCIN RANDOM 23.5 UG/ML
[2022-03-12 10:09] LABS: SODIUM,RANDOM URINE 18 MEQ/L
[2022-03-12] MEDS ORDERED: VANCOMYCIN HCL 1,000 MG, VIAL MATE ADAPTER 1 EACH in D5W 250 ML IV SCH (11:00)
[2022-03-12] MEDS ORDERED: OCTREOTIDE ACETATE 100MCG/ML VIAL **IV ADMINISTRATION ONLY IV SCH (11:00)
[2022-03-12] MEDS: HYDROCORTISONE 100 MG/2 ML VIAL (J1720 PER 1) IV SCH ×2 (11:24→17:49)
[2022-03-12 12:46] LABS: ABG HCO3 16.4 MEQ/L (22.0-26.0); ABG O2 SATURATION 93.7 % (95.0-99.0); ABG PARTIAL PRESSURE CO2 30.2 mmHg (35.0-45.0); ABG PARTIAL PRESSURE O2 69.4 mmHg (75.0-100.0); ABG STANDARD HCO3 17.9 MEQ/L (22.0-26.0); ABG TOTAL CO2 17.4 MEQ/L (23.0-31.0); ABG pH (ARTERIAL) 7.354 UNITS (7.350-7.450)
[2022-03-12 16:34] LABS: ABG BASE EXCESS -6.7 (-2.0-2.0); ABG HCO3 16.9 MEQ/L (22.0-26.0); ABG O2 SATURATION 93.8 % (95.0-99.0); ABG PARTIAL PRESSURE CO2 27.5 mmHg (35.0-45.0); ABG PARTIAL PRESSURE O2 71.8 mmHg (75.0-100.0); ABG STANDARD HCO3 18.9 MEQ/L (22.0-26.0); ABG TOTAL CO2 17.7 MEQ/L (23.0-31.0); ABG pH (ARTERIAL) 7.406 UNITS (7.350-7.450)
[2022-03-12 17:03] LABS: CALCIUM LEVEL 7.7 MG/DL (8.8-10.2); CREATININE FOR GFR 2.83 MG/DL (0.70-1.30); GLOMERULAR FILTRATION RATE 23.7 (>49); POTASSIUM SERUM 5.3 MEQ/L (3.5-5.1)
[2022-03-12] MEDS ORDERED: OCTREOTIDE ACETATE 100MCG/ML VIAL **SC ADMINISTRATION ONLY SC SCH (19:00)
[2022-03-12 20:00] LABS: ABG BASE EXCESS -2.9 (-2.0-2.0); ABG HCO3 21.1 MEQ/L (22.0-26.0); ABG O2 SATURATION 96.8 % (95.0-99.0); ABG PARTIAL PRESSURE CO2 33.7 mmHg (35.0-45.0); ABG PARTIAL PRESSURE O2 91.4 mmHg (75.0-100.0); ABG STANDARD HCO3 22.1 MEQ/L (22.0-26.0); ABG TOTAL CO2 22.2 MEQ/L (23.0-31.0); ABG pH (ARTERIAL) 7.415 UNITS (7.350-7.450)
[2022-03-12] MEDS: fentaNYL 100 MCG/2 ML INJECTION IV PRN (20:40)
[2022-03-12] MEDS: ENOXAPARIN 30MG/0.3ML SYRINGE (J1650 PER 10MG) SC SCH (20:40)
[2022-03-12] MEDS ORDERED: VANCOMYCIN INTERMITTENT/PULSE DOSING BY CLINICAL PHARMACIST PER DOSING PROTOCOL XX SCH (23:35)
[2022-03-13] VITALS (92 sets, daily range): BP systolic 74–126; BP diastolic 42–71
[2022-03-13 00:01] LABS: ABG BASE EXCESS -1.6 (-2.0-2.0); ABG HCO3 22.4 MEQ/L (22.0-26.0); ABG O2 SATURATION 97.1 % (95.0-99.0); ABG PARTIAL PRESSURE CO2 34.7 mmHg (35.0-45.0); ABG PARTIAL PRESSURE O2 94.6 mmHg (75.0-100.0); ABG STANDARD HCO3 23.1 MEQ/L (22.0-26.0); ABG TOTAL CO2 23.4 MEQ/L (23.0-31.0); ABG pH (ARTERIAL) 7.427 UNITS (7.350-7.450)
[2022-03-13] MEDS: INSULIN LISPRO (NovoLOG) PER UNIT SC SCH ×5 (00:03→23:38)
[2022-03-13] MEDS: HYDROCORTISONE 100 MG/2 ML VIAL (J1720 PER 1) IV SCH ×5 (00:03→23:38)
[2022-03-13] MEDS: OCTREOTIDE ACETATE 100MCG/ML VIAL **SC ADMINISTRATION ONLY SQ SCH ×3 (02:14→17:18)
[2022-03-13] MEDS: NOREPINEPHRINE/DEXTROSE 8 MG in IV 1 EA IV SCH ×2 (02:22→14:33)
[2022-03-13] MEDS: PIPERACILLIN/TAZOBACTAM SOD 3.375 GM in D5W MINI-BAG PLUS 50 ML IV SCH ×4 (04:33→21:05)
[2022-03-13] MEDS: VASOPRESSIN INJ 20 UNITS in NS 499 ML IV SCH ×2 (04:42→17:18)
[2022-03-13] MEDS: fentaNYL 100 MCG/2 ML INJECTION IV PRN (04:43)
[2022-03-13 06:19] LABS: ABG BASE EXCESS -0.3 (-2.0-2.0); ABG HCO3 24.2 MEQ/L (22.0-26.0); ABG O2 SATURATION 90.9 % (95.0-99.0); ABG PARTIAL PRESSURE O2 62.4 mmHg (75.0-100.0); ABG STANDARD HCO3 24.1 MEQ/L (22.0-26.0); ABG TOTAL CO2 25.4 MEQ/L (23.0-31.0); ABG pH (ARTERIAL) 7.411 UNITS (7.350-7.450)
[2022-03-13 06:23] LABS: HEMATOCRIT 26.5 % (42.0-52.0); HEMOGLOBIN 9.1 g/dl (13.5-17.5); MEAN CORPUSCULAR HEMOGLOBIN 31.9 pg (27.0-33.0); MEAN CORPUSCULAR HGB CONC 34.3 g/dl (32.0-36.5); PLATELET COUNT, AUTOMATED 107 10^3/uL (150-450); RED BLOOD COUNT 2.85 10^6/uL (4.30-6.10); WHITE BLOOD COUNT 27.2 10^3/uL (4.0-10.0)
[2022-03-13 07:08] LABS: CREATININE FOR GFR 3.35 MG/DL (0.70-1.30); GLOMERULAR FILTRATION RATE 19.5 (>49); POTASSIUM SERUM 5.1 MEQ/L (3.5-5.1)
[2022-03-13] MEDS: tiZANidine 4 MG TAB PO SCH ×2 (09:12→20:34)
[2022-03-13] MEDS ORDERED: LIDOCAINE 1% MDV 20ML VIAL SC ONE (18:10)
[2022-03-13] MEDS ORDERED: LIDOCAINE 1% MDV 20ML VIAL As Ordered ONE ×2 (18:11→18:12)
[2022-03-13 19:28] LABS: ABG BASE EXCESS -2.3 (-2.0-2.0); ABG HCO3 21.3 MEQ/L (22.0-26.0); ABG O2 SATURATION 92.6 % (95.0-99.0); ABG PARTIAL PRESSURE CO2 32.6 mmHg (35.0-45.0); ABG PARTIAL PRESSURE O2 68.2 mmHg (75.0-100.0); ABG STANDARD HCO3 22.4 MEQ/L (22.0-26.0); ABG TOTAL CO2 22.3 MEQ/L (23.0-31.0); ABG pH (ARTERIAL) 7.434 UNITS (7.350-7.450)
[2022-03-13] MEDS: ENOXAPARIN 30MG/0.3ML SYRINGE (J1650 PER 10MG) SC SCH (20:36)
[2022-03-14] VITALS (59 sets, daily range): BP systolic 61–115; BP diastolic 35–70
[2022-03-14] MEDS: OCTREOTIDE ACETATE 100MCG/ML VIAL **SC ADMINISTRATION ONLY SQ SCH ×3 (01:13→18:17)
[2022-03-14] MEDS: fentaNYL 100 MCG/2 ML INJECTION IV PRN ×2 (01:14→09:46)
[2022-03-14] MEDS: PIPERACILLIN/TAZOBACTAM SOD 3.375 GM in D5W MINI-BAG PLUS 50 ML IV SCH ×4 (03:45→22:02)
[2022-03-14 04:28] LABS: HEMATOCRIT 26.2 % (42.0-52.0); HEMOGLOBIN 9.2 g/dl (13.5-17.5); MEAN CORPUSCULAR HEMOGLOBIN 32.4 pg (27.0-33.0); MEAN CORPUSCULAR HGB CONC 35.1 g/dl (32.0-36.5); MEAN CORPUSCULAR VOLUME 92.3 fl (80.0-96.0); PLATELET COUNT, AUTOMATED 81 10^3/uL (150-450); RED BLOOD COUNT 2.84 10^6/uL (4.30-6.10)
[2022-03-14] MEDS: INSULIN LISPRO (NovoLOG) PER UNIT SC SCH ×3 (05:12→18:17)
[2022-03-14] MEDS: HYDROCORTISONE 100 MG/2 ML VIAL (J1720 PER 1) IV SCH ×4 (05:20→23:18)
[2022-03-14 05:36] LABS: CALCIUM LEVEL 6.6 MG/DL (8.8-10.2); CREATININE FOR GFR 4.05 MG/DL (0.70-1.30); GLOMERULAR FILTRATION RATE 15.7 (>49); POTASSIUM SERUM 5.3 MEQ/L (3.5-5.1)
[2022-03-14 05:46] LABS: ABG BASE EXCESS -1.1 (-2.0-2.0); ABG HCO3 22.4 MEQ/L (22.0-26.0); ABG O2 SATURATION 93.7 % (95.0-99.0); ABG PARTIAL PRESSURE CO2 32.8 mmHg (35.0-45.0); ABG PARTIAL PRESSURE O2 69.7 mmHg (75.0-100.0); ABG STANDARD HCO3 23.5 MEQ/L (22.0-26.0); ABG TOTAL CO2 23.4 MEQ/L (23.0-31.0); ABG pH (ARTERIAL) 7.452 UNITS (7.350-7.450)
[2022-03-14] MEDS ORDERED: LIDOCAINE 1% MDV 20ML VIAL As Ordered ONE (07:37)
[2022-03-14] MEDS: VASOPRESSIN INJ 20 UNITS in NS 499 ML IV SCH (08:26)
[2022-03-14 09:24] LABS: CENTRAL VEN BASE EXCESS -3.2
[2022-03-14] MEDS ORDERED: SODIUM CHLORIDE 0.9% INJ 10 ML SYR IV PRN (09:35)
[2022-03-14] MEDS: tiZANidine 4 MG TAB PO SCH ×2 (09:44→20:22)
[2022-03-14] MEDS ORDERED: HEPARIN 100 UNIT/ML *20ML* SYRINGE CRRT LOAD CRRT ONE (10:00)
[2022-03-14 10:01] LABS: INR 2.04; PROTHROMBIN TIME 23.5 SECONDS (12.7-14.5)
[2022-03-14 10:02] LABS: PARTIAL THROMBOPLASTIN TIME 41.9 SECONDS (25.9-37.0)
[2022-03-14 10:28] LABS: VANCOMYCIN RANDOM 22.5 UG/ML
[2022-03-14 11:14] LABS: RED BLOOD COUNT 2.41 10^6/uL (4.30-6.10); WHITE BLOOD COUNT 14.9 10^3/uL (4.0-10.0)
[2022-03-14 11:15] LABS: HEMATOCRIT 21.5 % (42.0-52.0); HEMOGLOBIN 8.4 g/dl (13.5-17.5); MEAN CORPUSCULAR HEMOGLOBIN 34.9 pg (27.0-33.0); MEAN CORPUSCULAR HGB CONC 39.1 g/dl (32.0-36.5); MEAN CORPUSCULAR VOLUME 89.2 fl (80.0-96.0); PLATELET COUNT, AUTOMATED 182 10^3/uL (150-450)
[2022-03-14 11:20] LABS: CALCIUM LEVEL 6.8 MG/DL (8.8-10.2); CREATININE FOR GFR 4.25 MG/DL (0.70-1.30); GLOMERULAR FILTRATION RATE 14.9 (>49); MAGNESIUM LEVEL 1.8 MG/DL (1.8-2.4); POTASSIUM SERUM 4.7 MEQ/L (3.5-5.1); VANCOMYCIN RANDOM 22.2 UG/ML
[2022-03-14] MEDS: HEPARIN 100 UNIT/ML *20ML* SYRINGE CRRT INFUSION CRRT SCH (12:48)
[2022-03-14] MEDS ORDERED: CALCIUM GLUCONATE 1,000 MG in D5W MINI-BAG PLUS 100 ML IV ONE (15:00)
[2022-03-14] MEDS: NOREPINEPHRINE/DEXTROSE 8 MG in IV 1 EA IV SCH (16:47)
[2022-03-14 18:35] LABS: HEMATOCRIT 24.6 % (42.0-52.0); HEMOGLOBIN 8.4 g/dl (13.5-17.5); MEAN CORPUSCULAR HEMOGLOBIN 31.6 pg (27.0-33.0); MEAN CORPUSCULAR HGB CONC 34.1 g/dl (32.0-36.5); MEAN CORPUSCULAR VOLUME 92.5 fl (80.0-96.0); RED BLOOD COUNT 2.66 10^6/uL (4.30-6.10); WHITE BLOOD COUNT 13.2 10^3/uL (4.0-10.0)
[2022-03-14 18:37] LABS: PLATELET COUNT, AUTOMATED 67 10^3/uL (150-450)
[2022-03-14 19:17] LABS: CALCIUM LEVEL 6.9 MG/DL (8.8-10.2); CREATININE FOR GFR 3.39 MG/DL (0.70-1.30); GLOMERULAR FILTRATION RATE 19.3 (>49); PHOSPHORUS LEVEL 5.2 MG/DL (2.5-4.9); POTASSIUM SERUM 4.4 MEQ/L (3.5-5.1)
[2022-03-14] MEDS: CALCIUM GLUCONATE 1,000 MG, VIAL MATE ADAPTER 1 EACH in NS 100 ML IV SCH ×2 (19:18→20:32)
[2022-03-14] MEDS: ENOXAPARIN 30MG/0.3ML SYRINGE (J1650 PER 10MG) SC SCH (20:22)
[2022-03-14] MEDS ORDERED: VANCOMYCIN HCL 1,000 MG, VIAL MATE ADAPTER 1 EACH in D5W 250 ML IV SCH (22:50)
[2022-03-15] VITALS (79 sets, daily range): BP systolic 78–124; BP diastolic 44–65
[2022-03-15] MEDS ORDERED: VANCOMYCIN HCL 1,000 MG, VIAL MATE ADAPTER 1 EACH in D5W 250 ML IV SCH ×3
[2022-03-15] MEDS: INSULIN LISPRO (NovoLOG) PER UNIT SC SCH ×5 (00:01→20:22)
[2022-03-15 00:34] LABS: HEMATOCRIT 25.2 % (42.0-52.0); HEMOGLOBIN 8.7 g/dl (13.5-17.5); MEAN CORPUSCULAR HEMOGLOBIN 32.1 pg (27.0-33.0); MEAN CORPUSCULAR HGB CONC 34.5 g/dl (32.0-36.5); RED BLOOD COUNT 2.71 10^6/uL (4.30-6.10)
[2022-03-15] MEDS: HEPARIN 100 UNIT/ML *20ML* SYRINGE CRRT INFUSION CRRT SCH ×6 (00:44→20:44)
[2022-03-15 00:54] LABS: CALCIUM LEVEL 7.3 MG/DL (8.8-10.2); CREATININE FOR GFR 2.89 MG/DL (0.70-1.30); GLOMERULAR FILTRATION RATE 23.2 (>49); PHOSPHORUS LEVEL 4.7 MG/DL (2.5-4.9); POTASSIUM SERUM 4.7 MEQ/L (3.5-5.1)
[2022-03-15] MEDS: CALCIUM GLUCONATE 1,000 MG, VIAL MATE ADAPTER 1 EACH in NS 100 ML IV SCH ×4 (00:58→07:47)
[2022-03-15 01:00] LABS: PLATELET COUNT, AUTOMATED 68 10^3/uL (150-450)
[2022-03-15] MEDS: OCTREOTIDE ACETATE 100MCG/ML VIAL **SC ADMINISTRATION ONLY SQ SCH ×2 (01:14→09:05)
[2022-03-15] MEDS: PIPERACILLIN/TAZOBACTAM SOD 3.375 GM in D5W MINI-BAG PLUS 50 ML IV SCH ×2 (03:13→09:05)
[2022-03-15] MEDS: HYDROCORTISONE 100 MG/2 ML VIAL (J1720 PER 1) IV SCH ×4 (05:57→23:28)
[2022-03-15 06:03] LABS: ABG HCO3 22.4 MEQ/L (22.0-26.0); ABG O2 SATURATION 96.3 % (95.0-99.0); ABG PARTIAL PRESSURE CO2 32.4 mmHg (35.0-45.0); ABG PARTIAL PRESSURE O2 84.8 mmHg (75.0-100.0); ABG STANDARD HCO3 23.6 MEQ/L (22.0-26.0); ABG TOTAL CO2 23.4 MEQ/L (23.0-31.0); ABG pH (ARTERIAL) 7.458 UNITS (7.350-7.450); HEMATOCRIT 25.9 % (42.0-52.0); HEMOGLOBIN 8.7 g/dl (13.5-17.5); MEAN CORPUSCULAR HEMOGLOBIN 30.9 pg (27.0-33.0); MEAN CORPUSCULAR HGB CONC 33.6 g/dl (32.0-36.5); MEAN CORPUSCULAR VOLUME 91.8 fl (80.0-96.0); RED BLOOD COUNT 2.82 10^6/uL (4.30-6.10); WHITE BLOOD COUNT 13.1 10^3/uL (4.0-10.0)
[2022-03-15 06:05] LABS: PLATELET COUNT, AUTOMATED 79 10^3/uL (150-450)
[2022-03-15 06:41] LABS: CALCIUM LEVEL 7.7 MG/DL (8.8-10.2); CREATININE FOR GFR 2.52 MG/DL (0.70-1.30); GLOMERULAR FILTRATION RATE 27.1 (>49); MAGNESIUM LEVEL 2.1 MG/DL (1.8-2.4); PHOSPHORUS LEVEL 4.3 MG/DL (2.5-4.9); POTASSIUM SERUM 4.4 MEQ/L (3.5-5.1)
[2022-03-15] MEDS: tiZANidine 4 MG TAB PO SCH ×3 (09:00→20:21)
[2022-03-15 11:52] LABS: HEMATOCRIT 24.1 % (42.0-52.0); HEMOGLOBIN 8.4 g/dl (13.5-17.5); MEAN CORPUSCULAR HEMOGLOBIN 32.4 pg (27.0-33.0); MEAN CORPUSCULAR HGB CONC 34.9 g/dl (32.0-36.5); MEAN CORPUSCULAR VOLUME 93.1 fl (80.0-96.0); RED BLOOD COUNT 2.59 10^6/uL (4.30-6.10); WHITE BLOOD COUNT 12.5 10^3/uL (4.0-10.0)
[2022-03-15] MEDS ORDERED: HEPARIN 100 UNIT/ML *20ML* SYRINGE CRRT LOAD CRRT ONE (12:00)
[2022-03-15 12:07] LABS: PLATELET COUNT, AUTOMATED 70 10^3/uL (150-450)
[2022-03-15 12:22] LABS: CALCIUM LEVEL 7.9 MG/DL (8.8-10.2); CREATININE FOR GFR 2.28 MG/DL (0.70-1.30); GLOMERULAR FILTRATION RATE 30.5 (>49); PHOSPHORUS LEVEL 3.9 MG/DL (2.5-4.9); POTASSIUM SERUM 4.2 MEQ/L (3.5-5.1)
[2022-03-15] MEDS: MIDODRINE 5 MG TAB PO SCH ×2 (12:41→20:21)
[2022-03-15] MEDS: VANCOMYCIN HCL 750 MG, VIAL MATE ADAPTER 1 EACH in D5W 250 ML IV SCH (12:42)
[2022-03-15] MEDS: CALCIUM GLUCONATE 1,000 MG in D5W MINI-BAG PLUS 100 ML IV SCH ×4 (13:09→21:05)
[2022-03-15] MEDS: NOREPINEPHRINE/DEXTROSE 8 MG in IV 1 EA IV SCH (14:35)
[2022-03-15] MEDS: PIPERACILLIN/TAZOBACTAM SOD 4.5 GM in D5W MINI-BAG PLUS 50 ML IV SCH ×2 (16:00→23:28)
[2022-03-15] MEDS: VASOPRESSIN INJ 20 UNITS in NS 499 ML IV SCH ×3 (17:15)
[2022-03-15 17:52] LABS: HEMATOCRIT 23.2 % (42.0-52.0); HEMOGLOBIN 7.8 g/dl (13.5-17.5); MEAN CORPUSCULAR HEMOGLOBIN 31.6 pg (27.0-33.0); MEAN CORPUSCULAR HGB CONC 33.6 g/dl (32.0-36.5); MEAN CORPUSCULAR VOLUME 93.9 fl (80.0-96.0); RED BLOOD COUNT 2.47 10^6/uL (4.30-6.10); WHITE BLOOD COUNT 10.1 10^3/uL (4.0-10.0)
[2022-03-15 18:02] LABS: PLATELET COUNT, AUTOMATED 53 10^3/uL (150-450)
[2022-03-15 18:18] LABS: CALCIUM LEVEL 7.9 MG/DL (8.8-10.2); CREATININE FOR GFR 2.01 MG/DL (0.70-1.30); GLOMERULAR FILTRATION RATE 35.2 (>49); MAGNESIUM LEVEL 2.1 MG/DL (1.8-2.4); PHOSPHORUS LEVEL 3.2 MG/DL (2.5-4.9); POTASSIUM SERUM 3.9 MEQ/L (3.5-5.1)
[2022-03-15] MEDS ORDERED: KCL 20MEQ IN 100ML SWI (KRUN) 20 MEQ in IV 1 EA IV ONE ×2 (19:30)
[2022-03-15] MEDS: ENOXAPARIN 30MG/0.3ML SYRINGE (J1650 PER 10MG) SC SCH (20:21)
[2022-03-15 23:49] LABS: HEMATOCRIT 23.9 % (42.0-52.0); MEAN CORPUSCULAR HEMOGLOBIN 31.9 pg (27.0-33.0); MEAN CORPUSCULAR HGB CONC 33.5 g/dl (32.0-36.5); MEAN CORPUSCULAR VOLUME 95.2 fl (80.0-96.0); RED BLOOD COUNT 2.51 10^6/uL (4.30-6.10)
[2022-03-15 23:51] LABS: PLATELET COUNT, AUTOMATED 51 10^3/uL (150-450)
[2022-03-16] VITALS (82 sets, daily range): BP systolic 84–146; BP diastolic 44–83
[2022-03-16 00:25] LABS: CREATININE FOR GFR 1.83 MG/DL (0.70-1.30); GLOMERULAR FILTRATION RATE 39.3 (>49); MAGNESIUM LEVEL 2.1 MG/DL (1.8-2.4); PHOSPHORUS LEVEL 2.7 MG/DL (2.5-4.9); POTASSIUM SERUM 4.1 MEQ/L (3.5-5.1)
[2022-03-16] MEDS: HEPARIN 100 UNIT/ML *20ML* SYRINGE CRRT INFUSION CRRT SCH ×4 (00:34→13:28)
[2022-03-16] MEDS: VANCOMYCIN HCL 750 MG, VIAL MATE ADAPTER 1 EACH in D5W 250 ML IV SCH (00:34)
[2022-03-16] MEDS ORDERED: CALCIUM GLUCONATE 1,000 MG, VIAL MATE ADAPTER 1 EACH in NS 100 ML IV ONE ×2 (01:00→07:00)
[2022-03-16] MEDS: NOREPINEPHRINE/DEXTROSE 8 MG in IV 1 EA IV SCH ×3 (03:56→03:59)
[2022-03-16] MEDS: MIDODRINE 5 MG TAB PO SCH ×3 (03:59→20:21)
[2022-03-16 05:44] LABS: ABG BASE EXCESS 0.3 (-2.0-2.0); ABG HCO3 24.2 MEQ/L (22.0-26.0); ABG PARTIAL PRESSURE CO2 36.2 mmHg (35.0-45.0); ABG PARTIAL PRESSURE O2 75.6 mmHg (75.0-100.0); ABG STANDARD HCO3 24.7 MEQ/L (22.0-26.0); ABG TOTAL CO2 25.3 MEQ/L (23.0-31.0); ABG pH (ARTERIAL) 7.443 UNITS (7.350-7.450)
[2022-03-16 05:55] LABS: HEMATOCRIT 25.6 % (42.0-52.0); HEMOGLOBIN 8.5 g/dl (13.5-17.5); MEAN CORPUSCULAR HEMOGLOBIN 30.9 pg (27.0-33.0); MEAN CORPUSCULAR HGB CONC 33.2 g/dl (32.0-36.5); MEAN CORPUSCULAR VOLUME 93.1 fl (80.0-96.0); PLATELET COUNT, AUTOMATED 59 10^3/uL (150-450); RED BLOOD COUNT 2.75 10^6/uL (4.30-6.10); WHITE BLOOD COUNT 10.1 10^3/uL (4.0-10.0)
[2022-03-16] MEDS: HYDROCORTISONE 100 MG/2 ML VIAL (J1720 PER 1) IV SCH ×3 (06:23→17:14)
[2022-03-16 06:27] LABS: CALCIUM LEVEL 8.5 MG/DL (8.8-10.2); CREATININE FOR GFR 1.54 MG/DL (0.70-1.30); GLOMERULAR FILTRATION RATE 47.9 (>49); PHOSPHORUS LEVEL 2.6 MG/DL (2.5-4.9); POTASSIUM SERUM 4.2 MEQ/L (3.5-5.1)
[2022-03-16] MEDS: PIPERACILLIN/TAZOBACTAM SOD 4.5 GM in D5W MINI-BAG PLUS 50 ML IV SCH ×2 (08:10→17:15)
[2022-03-16] MEDS: INSULIN LISPRO (NovoLOG) PER UNIT SC SCH ×3 (08:19→18:22)
[2022-03-16] MEDS: tiZANidine 4 MG TAB PO SCH ×2 (08:30→20:21)
[2022-03-16] MEDS ORDERED: ceFAZolin 1GM VIAL (J0690 PER 500MG) As Ordered ONE (11:07)
[2022-03-16] MEDS ORDERED: BUPIVACAINE LIPOSOME/PF 1.3% 20ML VIAL (13.3MG/ML)(EXPAREL) As Ordered ONE (12:13)
[2022-03-16] MEDS ORDERED: LIDOCAINE 1% SDV 30ML VIAL As Ordered ONE (12:13)
[2022-03-16] MEDS ORDERED: BUPIVACAINE HCL 0.25% 10ML VIAL As Ordered ONE (12:13)
[2022-03-16 12:19] LABS: HEMATOCRIT 25.5 % (42.0-52.0); HEMOGLOBIN 8.7 g/dl (13.5-17.5); MEAN CORPUSCULAR HEMOGLOBIN 32.1 pg (27.0-33.0); MEAN CORPUSCULAR HGB CONC 34.1 g/dl (32.0-36.5); MEAN CORPUSCULAR VOLUME 94.1 fl (80.0-96.0); PLATELET COUNT, AUTOMATED 60 10^3/uL (150-450); RED BLOOD COUNT 2.71 10^6/uL (4.30-6.10); WHITE BLOOD COUNT 11.2 10^3/uL (4.0-10.0)
[2022-03-16 12:41] LABS: CALCIUM LEVEL 8.4 MG/DL (8.8-10.2); CREATININE FOR GFR 1.55 MG/DL (0.70-1.30); GLOMERULAR FILTRATION RATE 47.6 (>49); MAGNESIUM LEVEL 2.1 MG/DL (1.8-2.4); PHOSPHORUS LEVEL 2.5 MG/DL (2.5-4.9)
[2022-03-16] MEDS ORDERED: MIDAZOLAM INJ 2MG/2ML VIAL (J2250 PER 1MG) As Ordered ONE (13:28)
[2022-03-16] MEDS ORDERED: fentaNYL 100 MCG/2 ML INJECTION As Ordered ONE (13:28)
[2022-03-16] MEDS ORDERED: ETOMIDATE INJ 20MG/10ML VIAL As Ordered ONE (13:28)
[2022-03-16] MEDS ORDERED: ONDANSETRON 4MG 2ML VIAL As Ordered ONE (13:28)
[2022-03-16] MEDS ORDERED: GLYCOPYRROLATE INJ 0.2 MG/ML 2 ML VIAL As Ordered ONE ×2 (13:28→13:29)
[2022-03-16] MEDS ORDERED: ROCURONIUM BROMIDE 50 MG/5 ML VIAL As Ordered ONE (13:28)
[2022-03-16] MEDS ORDERED: NEOSTIGMINE 10MG/10ML VIAL (J2710 PER 0.5MG) As Ordered ONE (13:28)
[2022-03-16] MEDS ORDERED: propofoL 200 MG/20 ML VIAL As Ordered ONE (13:28)
[2022-03-16] MEDS: VANCOMYCIN 1000MG/20ML VIAL As Ordered ONE ×2 (13:46→14:34)
[2022-03-16] MEDS ORDERED: HYDROmorphone HCL 2MG/ML 1ML VIAL As Ordered ONE (14:16)
[2022-03-16] MEDS ORDERED: LR 1,000 ML IV SCH (14:35)
[2022-03-16] MEDS ORDERED: ONDANSETRON 4MG 2ML VIAL IV PRN (14:35)
[2022-03-16] MEDS ORDERED: MORPHINE 2 MG/ML 1ML VIAL IV PRN (14:35)
[2022-03-16] MEDS ORDERED: NOREPINEPHRINE/DEXTROSE 8 MG in IV 1 EA IV SCH (14:35)
[2022-03-16] MEDS ORDERED: oxyCODONE 5MG TAB PO PRN (14:35)
[2022-03-16] MEDS ORDERED: fentaNYL 100 MCG/2 ML INJECTION IV PRN (14:35)
[2022-03-16 17:50] LABS: HEMATOCRIT 25.1 % (42.0-52.0); HEMOGLOBIN 8.5 g/dl (13.5-17.5); MEAN CORPUSCULAR HEMOGLOBIN 32.1 pg (27.0-33.0); MEAN CORPUSCULAR HGB CONC 33.9 g/dl (32.0-36.5); MEAN CORPUSCULAR VOLUME 94.7 fl (80.0-96.0); PLATELET COUNT, AUTOMATED 115 10^3/uL (150-450); RED BLOOD COUNT 2.65 10^6/uL (4.30-6.10); WHITE BLOOD COUNT 18.2 10^3/uL (4.0-10.0)
[2022-03-16] MEDS ORDERED: CALCIUM GLUCONATE 1,000 MG in NS 100 ML IV ONE (18:00)
[2022-03-16 18:12] LABS: CALCIUM LEVEL 8.1 MG/DL (8.8-10.2); CREATININE FOR GFR 1.62 MG/DL (0.70-1.30); GLOMERULAR FILTRATION RATE 45.2 (>49); MAGNESIUM LEVEL 2.1 MG/DL (1.8-2.4); PHOSPHORUS LEVEL 2.9 MG/DL (2.5-4.9); POTASSIUM SERUM 4.2 MEQ/L (3.5-5.1)
[2022-03-16] MEDS: VANCOMYCIN HCL 500 MG in D5W MINI-BAG PLUS 100 ML IV SCH (20:21)
[2022-03-16] MEDS ORDERED: HEPARIN SOD (PORCINE) 5000UNITS/ML 1ML VIAL/SYRINGE SQ SCH (21:00)
[2022-03-17] VITALS (95 sets, daily range): BP systolic 86–118; BP diastolic 43–57
[2022-03-17] MEDS: PIPERACILLIN/TAZOBACTAM SOD 4.5 GM in D5W MINI-BAG PLUS 50 ML IV SCH ×3 (00:04→19:28)
[2022-03-17] MEDS: HYDROCORTISONE 100 MG/2 ML VIAL (J1720 PER 1) IV SCH ×3 (00:05→19:28)
[2022-03-17] MEDS: INSULIN LISPRO (NovoLOG) PER UNIT SC SCH ×4 (00:12→19:27)
[2022-03-17 00:19] LABS: HEMATOCRIT 23.4 % (42.0-52.0); MEAN CORPUSCULAR HEMOGLOBIN 32.5 pg (27.0-33.0); MEAN CORPUSCULAR HGB CONC 34.2 g/dl (32.0-36.5); MEAN CORPUSCULAR VOLUME 95.1 fl (80.0-96.0); RED BLOOD COUNT 2.46 10^6/uL (4.30-6.10); WHITE BLOOD COUNT 16.5 10^3/uL (4.0-10.0)
[2022-03-17 00:26] LABS: PLATELET COUNT, AUTOMATED 87 10^3/uL (150-450)
[2022-03-17 00:46] LABS: CALCIUM LEVEL 7.8 MG/DL (8.8-10.2); CREATININE FOR GFR 1.47 MG/DL (0.70-1.30); GLOMERULAR FILTRATION RATE 50.6 (>49); MAGNESIUM LEVEL 2.1 MG/DL (1.8-2.4); PHOSPHORUS LEVEL 2.5 MG/DL (2.5-4.9); POTASSIUM SERUM 4.3 MEQ/L (3.5-5.1)
[2022-03-17] MEDS ORDERED: CALCIUM GLUCONATE 1,000 MG, VIAL MATE ADAPTER 1 EACH in NS 100 ML IV ONE ×3 (00:50→19:20)
[2022-03-17] MEDS: HEPARIN 100 UNIT/ML *20ML* SYRINGE CRRT INFUSION CRRT SCH ×3 (04:23→11:09)
[2022-03-17] MEDS: MIDODRINE 5 MG TAB PO SCH ×3 (04:39→19:27)
[2022-03-17 05:35] LABS: HEMOGLOBIN 7.7 g/dl (13.5-17.5); MEAN CORPUSCULAR HEMOGLOBIN 32.1 pg (27.0-33.0); MEAN CORPUSCULAR HGB CONC 33.5 g/dl (32.0-36.5); MEAN CORPUSCULAR VOLUME 95.8 fl (80.0-96.0); WHITE BLOOD COUNT 11.3 10^3/uL (4.0-10.0)
[2022-03-17 05:36] LABS: PLATELET COUNT, AUTOMATED 57 10^3/uL (150-450)
[2022-03-17 06:10] LABS: CALCIUM LEVEL 7.9 MG/DL (8.8-10.2); CREATININE FOR GFR 1.39 MG/DL (0.70-1.30); GLOMERULAR FILTRATION RATE 53.9 (>49); MAGNESIUM LEVEL 2.1 MG/DL (1.8-2.4); PHOSPHORUS LEVEL 2.3 MG/DL (2.5-4.9); POTASSIUM SERUM 4.3 MEQ/L (3.5-5.1)
[2022-03-17] MEDS ORDERED: SODIUM PHOSPHATE INJ 15 MMOL in D5W 250 ML IV ONE (07:00)
[2022-03-17] MEDS: NOREPINEPHRINE/DEXTROSE 8 MG in IV 1 EA IV SCH ×2 (08:41→09:12)
[2022-03-17] MEDS: tiZANidine 4 MG TAB PO SCH ×2 (09:00→20:43)
[2022-03-17] MEDS: VANCOMYCIN HCL 500 MG in D5W MINI-BAG PLUS 100 ML IV SCH ×2 (09:57→20:43)
[2022-03-17] MEDS: HEPARIN SOD (PORCINE) 5000UNITS/ML 1ML VIAL/SYRINGE SQ SCH ×2 (10:34→20:43)
[2022-03-17] MEDS: PSEUDOEPHEDRINE 30 MG TAB PO SCH ×2 (12:11→19:27)
[2022-03-17 12:14] LABS: HEMATOCRIT 24.3 % (42.0-52.0); HEMOGLOBIN 8.2 g/dl (13.5-17.5); MEAN CORPUSCULAR HEMOGLOBIN 32.7 pg (27.0-33.0); MEAN CORPUSCULAR HGB CONC 33.7 g/dl (32.0-36.5); MEAN CORPUSCULAR VOLUME 96.8 fl (80.0-96.0); RED BLOOD COUNT 2.51 10^6/uL (4.30-6.10); WHITE BLOOD COUNT 12.7 10^3/uL (4.0-10.0)
[2022-03-17 12:19] LABS: PLATELET COUNT, AUTOMATED 76 10^3/uL (150-450)
[2022-03-17 12:39] LABS: ALBUMIN 2.5 GM/DL (3.2-5.2); CALCIUM LEVEL 7.8 MG/DL (8.8-10.2); CREATININE FOR GFR 1.3 MG/DL (0.70-1.30); GLOMERULAR FILTRATION RATE 58.3 (>49); PHOSPHORUS LEVEL 2.6 MG/DL (2.5-4.9); POTASSIUM SERUM 4.2 MEQ/L (3.5-5.1)
[2022-03-17] MEDS ORDERED: CALCIUM GLUCONATE 1,000 MG in NS 100 ML IV ONE (14:00)
[2022-03-17 18:39] LABS: HEMATOCRIT 30.8 % (42.0-52.0); HEMOGLOBIN 10.3 g/dl (13.5-17.5); MEAN CORPUSCULAR HEMOGLOBIN 31.9 pg (27.0-33.0); MEAN CORPUSCULAR HGB CONC 33.4 g/dl (32.0-36.5); MEAN CORPUSCULAR VOLUME 95.4 fl (80.0-96.0); PLATELET COUNT, AUTOMATED 102 10^3/uL (150-450); RED BLOOD COUNT 3.23 10^6/uL (4.30-6.10); WHITE BLOOD COUNT 17.5 10^3/uL (4.0-10.0)
[2022-03-17 19:05] LABS: CALCIUM LEVEL 8.1 MG/DL (8.8-10.2); CREATININE FOR GFR 1.35 MG/DL (0.70-1.30); GLOMERULAR FILTRATION RATE 55.8 (>49); MAGNESIUM LEVEL 2.1 MG/DL (1.8-2.4); PHOSPHORUS LEVEL 1.8 MG/DL (2.5-4.9); POTASSIUM SERUM 4.4 MEQ/L (3.5-5.1)
[2022-03-17] MEDS ORDERED: SODIUM PHOSPHATE INJ 30 MMOL in D5W 250 ML IV ONE (20:00)
[2022-03-18] VITALS (83 sets, daily range): BP systolic 88–110; BP diastolic 45–59
[2022-03-18] MEDS: PSEUDOEPHEDRINE 30 MG TAB PO SCH ×5 (00:20→23:18)
[2022-03-18] MEDS: PIPERACILLIN/TAZOBACTAM SOD 4.5 GM in D5W MINI-BAG PLUS 50 ML IV SCH ×4 (00:20→23:18)
[2022-03-18 00:22] LABS: HEMATOCRIT 30.1 % (42.0-52.0); HEMOGLOBIN 10.3 g/dl (13.5-17.5); MEAN CORPUSCULAR HEMOGLOBIN 32.4 pg (27.0-33.0); MEAN CORPUSCULAR HGB CONC 34.2 g/dl (32.0-36.5); MEAN CORPUSCULAR VOLUME 94.7 fl (80.0-96.0); RED BLOOD COUNT 3.18 10^6/uL (4.30-6.10); WHITE BLOOD COUNT 21.7 10^3/uL (4.0-10.0)
[2022-03-18] MEDS: INSULIN LISPRO (NovoLOG) PER UNIT SC SCH ×5 (00:25→23:35)
[2022-03-18 00:27] LABS: PLATELET COUNT, AUTOMATED 85 10^3/uL (150-450)
[2022-03-18 01:03] LABS: CALCIUM LEVEL 8.1 MG/DL (8.8-10.2); CREATININE FOR GFR 1.28 MG/DL (0.70-1.30); GLOMERULAR FILTRATION RATE 59.3 (>49); MAGNESIUM LEVEL 2.1 MG/DL (1.8-2.4); PHOSPHORUS LEVEL 2.3 MG/DL (2.5-4.9); POTASSIUM SERUM 4.2 MEQ/L (3.5-5.1)
[2022-03-18] MEDS: HEPARIN 100 UNIT/ML *20ML* SYRINGE CRRT INFUSION CRRT SCH ×5 (01:47→21:51)
[2022-03-18] MEDS: MIDODRINE 5 MG TAB PO SCH ×3 (04:05→19:34)
[2022-03-18] MEDS: HYDROCORTISONE 100 MG/2 ML VIAL (J1720 PER 1) IV SCH ×2 (05:26→18:31)
[2022-03-18] MEDS ORDERED: CALCIUM GLUCONATE 1,000 MG, VIAL MATE ADAPTER 1 EACH in NS 100 ML IV ONE ×5 (06:00→19:10)
[2022-03-18 06:19] LABS: HEMATOCRIT 31.3 % (42.0-52.0); HEMOGLOBIN 10.4 g/dl (13.5-17.5); MEAN CORPUSCULAR HEMOGLOBIN 31.7 pg (27.0-33.0); MEAN CORPUSCULAR HGB CONC 33.2 g/dl (32.0-36.5); MEAN CORPUSCULAR VOLUME 95.4 fl (80.0-96.0); PLATELET COUNT, AUTOMATED 71 10^3/uL (150-450); RED BLOOD COUNT 3.28 10^6/uL (4.30-6.10); WHITE BLOOD COUNT 23.8 10^3/uL (4.0-10.0)
[2022-03-18 06:53] LABS: BLOOD UREA NITROGEN 14 MG/DL (7-18); CARBON DIOXIDE LEVEL 25 MEQ/L (21-32); CHLORIDE LEVEL 104 MEQ/L (98-107); CREATININE FOR GFR 1.23 MG/DL (0.70-1.30); GLOMERULAR FILTRATION RATE > 60.0 (>49); GLUCOSE, FASTING 267 MG/DL (70-100); SODIUM LEVEL 136 MEQ/L (136-145)
[2022-03-18] MEDS: HEPARIN SOD (PORCINE) 5000UNITS/ML 1ML VIAL/SYRINGE SQ SCH ×2 (08:22→20:38)
[2022-03-18] MEDS: tiZANidine 4 MG TAB PO SCH ×2 (09:00→20:38)
[2022-03-18] MEDS: VANCOMYCIN HCL 500 MG in D5W MINI-BAG PLUS 100 ML IV SCH ×2 (09:24→20:39)
[2022-03-18] MEDS: NOREPINEPHRINE/DEXTROSE 8 MG in IV 1 EA IV SCH ×3 (09:25→09:27)
[2022-03-18] MEDS: MORPHINE 2 MG/ML 1ML VIAL IV PRN (09:47)
[2022-03-18 12:32] LABS: HEMATOCRIT 31.2 % (42.0-52.0); HEMOGLOBIN 10.5 g/dl (13.5-17.5); MEAN CORPUSCULAR HEMOGLOBIN 31.9 pg (27.0-33.0); MEAN CORPUSCULAR HGB CONC 33.7 g/dl (32.0-36.5); MEAN CORPUSCULAR VOLUME 94.8 fl (80.0-96.0); RED BLOOD COUNT 3.29 10^6/uL (4.30-6.10); WHITE BLOOD COUNT 25.8 10^3/uL (4.0-10.0)
[2022-03-18 12:34] LABS: PLATELET COUNT, AUTOMATED 84 10^3/uL (150-450)
[2022-03-18 13:05] LABS: BLOOD UREA NITROGEN 14 MG/DL (7-18); CALCIUM LEVEL 8.1 MG/DL (8.8-10.2); CARBON DIOXIDE LEVEL 25 MEQ/L (21-32); CHLORIDE LEVEL 104 MEQ/L (98-107); CREATININE FOR GFR 1.22 MG/DL (0.70-1.30); GLOMERULAR FILTRATION RATE > 60.0 (>49); GLUCOSE, FASTING 273 MG/DL (70-100); MAGNESIUM LEVEL 2.1 MG/DL (1.8-2.4); POTASSIUM SERUM 4.4 MEQ/L (3.5-5.1); SODIUM LEVEL 134 MEQ/L (136-145)
[2022-03-18] MEDS ORDERED: SODIUM PHOSPHATE INJ 30 MMOL in D5W 250 ML IV ONE ×2 (13:35→15:00)
[2022-03-18 18:32] LABS: HEMATOCRIT 30.6 % (42.0-52.0); HEMOGLOBIN 10.3 g/dl (13.5-17.5); MEAN CORPUSCULAR HGB CONC 33.7 g/dl (32.0-36.5); RED BLOOD COUNT 3.22 10^6/uL (4.30-6.10); WHITE BLOOD COUNT 25.9 10^3/uL (4.0-10.0)
[2022-03-18 18:37] LABS: PLATELET COUNT, AUTOMATED 86 10^3/uL (150-450)
[2022-03-18 19:02] LABS: BLOOD UREA NITROGEN 13 MG/DL (7-18); CALCIUM LEVEL 7.9 MG/DL (8.8-10.2); CARBON DIOXIDE LEVEL 24 MEQ/L (21-32); CHLORIDE LEVEL 104 MEQ/L (98-107); CREATININE FOR GFR 1.22 MG/DL (0.70-1.30); GLOMERULAR FILTRATION RATE > 60.0 (>49); GLUCOSE, FASTING 231 MG/DL (70-100); PHOSPHORUS LEVEL 2.6 MG/DL (2.5-4.9); POTASSIUM SERUM 4.1 MEQ/L (3.5-5.1); SODIUM LEVEL 134 MEQ/L (136-145)
[2022-03-19] VITALS (46 sets, daily range): BP systolic 79–116; BP diastolic 40–65
[2022-03-19 00:19] LABS: HEMOGLOBIN 10.4 g/dl (13.5-17.5); MEAN CORPUSCULAR HEMOGLOBIN 32.1 pg (27.0-33.0); MEAN CORPUSCULAR HGB CONC 33.5 g/dl (32.0-36.5); MEAN CORPUSCULAR VOLUME 95.7 fl (80.0-96.0); RED BLOOD COUNT 3.24 10^6/uL (4.30-6.10); WHITE BLOOD COUNT 25.3 10^3/uL (4.0-10.0)
[2022-03-19 00:21] LABS: PLATELET COUNT, AUTOMATED 72 10^3/uL (150-450)
[2022-03-19 00:33] LABS: BLOOD UREA NITROGEN 13 MG/DL (7-18); CALCIUM LEVEL 7.9 MG/DL (8.8-10.2); CARBON DIOXIDE LEVEL 23 MEQ/L (21-32); CHLORIDE LEVEL 102 MEQ/L (98-107); CREATININE FOR GFR 1.21 MG/DL (0.70-1.30); GLOMERULAR FILTRATION RATE > 60.0 (>49); GLUCOSE, FASTING 325 MG/DL (70-100); POTASSIUM SERUM 4.3 MEQ/L (3.5-5.1); SODIUM LEVEL 132 MEQ/L (136-145)
[2022-03-19] MEDS: HEPARIN 100 UNIT/ML *20ML* SYRINGE CRRT INFUSION CRRT SCH ×2 (01:42→05:32)
[2022-03-19] MEDS: MIDODRINE 5 MG TAB PO SCH ×3 (03:35→20:17)
[2022-03-19] MEDS: INSULIN LISPRO (NovoLOG) PER UNIT SC SCH ×4 (05:32→21:00)
[2022-03-19] MEDS: HYDROCORTISONE 100 MG/2 ML VIAL (J1720 PER 1) IV SCH (05:32)
[2022-03-19] MEDS: PSEUDOEPHEDRINE 30 MG TAB PO SCH ×4 (05:32→23:34)
[2022-03-19] MEDS ORDERED: CALCIUM GLUCONATE 1,000 MG in D5W MINI-BAG PLUS 100 ML IV ONE ×3 (06:00)
[2022-03-19 06:01] LABS: HEMATOCRIT 32.4 % (42.0-52.0); MEAN CORPUSCULAR HEMOGLOBIN 32.4 pg (27.0-33.0); MEAN CORPUSCULAR VOLUME 95.3 fl (80.0-96.0); WHITE BLOOD COUNT 27.5 10^3/uL (4.0-10.0)
[2022-03-19 06:10] LABS: PLATELET COUNT, AUTOMATED 79 10^3/uL (150-450)
[2022-03-19 06:36] LABS: BLOOD UREA NITROGEN 12 MG/DL (7-18); CALCIUM LEVEL 8.1 MG/DL (8.8-10.2); CARBON DIOXIDE LEVEL 23 MEQ/L (21-32); CHLORIDE LEVEL 102 MEQ/L (98-107); CREATININE FOR GFR 1.22 MG/DL (0.70-1.30); GLOMERULAR FILTRATION RATE > 60.0 (>49); GLUCOSE, FASTING 219 MG/DL (70-100); POTASSIUM SERUM 4.2 MEQ/L (3.5-5.1); SODIUM LEVEL 131 MEQ/L (136-145)
[2022-03-19 07:18] LABS: PHOSPHORUS LEVEL 2.6 MG/DL (2.5-4.9)
[2022-03-19 07:54] LABS: C REACTIVE PROTEIN QUANTITATIV 2.03 MG/DL (0.00-0.30)
[2022-03-19] MEDS: PIPERACILLIN/TAZOBACTAM SOD 4.5 GM in D5W MINI-BAG PLUS 50 ML IV SCH ×3 (08:09→23:34)
[2022-03-19] MEDS: HEPARIN SOD (PORCINE) 5000UNITS/ML 1ML VIAL/SYRINGE SQ SCH ×2 (08:09→20:18)
[2022-03-19] MEDS ORDERED: ACETAMINOPHEN TAB 650MG DOSE (2X325MG) PO ONE (08:10)
[2022-03-19] MEDS: SENNA 8.6 MG TAB (SENOKOT) PO PRN (08:14)
[2022-03-19] MEDS: MIRALAX *UNIT DOSE* 17GM PACKET PO SCH (08:22)
[2022-03-19] MEDS: tiZANidine 4 MG TAB PO SCH ×2 (09:00→20:17)
[2022-03-19 13:44] LABS: HEPATITIS B CORE ANTIBODY IGM NEGATIVE (NEGATIVE); HEPATITIS B SURFACE ANTIBODY NEGATIVE (POSITIVE); HEPATITIS B SURFACE ANTIGEN NEGATIVE (NEGATIVE); HEPATITIS C VIRUS ABY INDEX 0.1 INDEX (<0.8)
[2022-03-19 15:13] LABS: BASO % 0.1 % (0.0-1.0); EOS % 0.2 % (0.0-3.0); HEMATOCRIT 27.2 % (42.0-52.0); LYMPH % 5.1 % (24.0-44.0); MEAN CORPUSCULAR HEMOGLOBIN 32.3 pg (27.0-33.0); MEAN CORPUSCULAR HGB CONC 33.1 g/dl (32.0-36.5); MEAN CORPUSCULAR VOLUME 97.5 fl (80.0-96.0); MONO # 1.4 10^3/uL (0.0-0.8); MONO % 7.6 % (2.0-8.0); NEUTROPHILS # 15.9 10^3/uL (1.5-8.5); NEUTROPHILS % 85.9 % (36.0-66.0); RED BLOOD COUNT 2.79 10^6/uL (4.30-6.10); WHITE BLOOD COUNT 18.5 10^3/uL (4.0-10.0)
[2022-03-19 15:17] LABS: PLATELET COUNT, AUTOMATED 50 10^3/uL (150-450)
[2022-03-19] MEDS: MORPHINE 2 MG/ML 1ML VIAL IV PRN (15:44)
[2022-03-19] MEDS ORDERED: ISOVUE-370 76% 100ML VIAL As Ordered ONE (17:56)
[2022-03-20] VITALS (63 sets, daily range): BP systolic 67–153; BP diastolic 46–84
[2022-03-20] MEDS: MIDODRINE 5 MG TAB PO SCH ×3 (04:52→21:24)
[2022-03-20 05:01] LABS: HEMATOCRIT 27.1 % (42.0-52.0); MEAN CORPUSCULAR HEMOGLOBIN 31.9 pg (27.0-33.0); MEAN CORPUSCULAR HGB CONC 33.2 g/dl (32.0-36.5); MEAN CORPUSCULAR VOLUME 96.1 fl (80.0-96.0); RED BLOOD COUNT 2.82 10^6/uL (4.30-6.10); WHITE BLOOD COUNT 18.5 10^3/uL (4.0-10.0)
[2022-03-20 05:02] LABS: PLATELET COUNT, AUTOMATED 47 10^3/uL (150-450)
[2022-03-20] MEDS: PSEUDOEPHEDRINE 30 MG TAB PO SCH (05:14)
[2022-03-20] MEDS: SENNA 8.6 MG TAB (SENOKOT) PO PRN (05:14)
[2022-03-20 05:42] LABS: CALCIUM LEVEL 8.1 MG/DL (8.8-10.2); CREATININE FOR GFR 2.46 MG/DL (0.70-1.30); GLOMERULAR FILTRATION RATE 27.9 (>49); POTASSIUM SERUM 4.3 MEQ/L (3.5-5.1)
[2022-03-20] MEDS ORDERED: SODIUM CHLORIDE 0.9% 1000ML IV PRN (06:00)
[2022-03-20] MEDS: tiZANidine 4 MG TAB PO SCH ×2 (08:45→21:24)
[2022-03-20] MEDS: INSULIN LISPRO (NovoLOG) PER UNIT SC SCH ×5 (08:45→21:00)
[2022-03-20] MEDS: PIPERACILLIN/TAZOBACTAM SOD 4.5 GM in D5W MINI-BAG PLUS 50 ML IV SCH (08:45)
[2022-03-20] MEDS: MIRALAX *UNIT DOSE* 17GM PACKET PO SCH (08:45)
[2022-03-20] MEDS: NOREPINEPHRINE/DEXTROSE 8 MG in IV 1 EA IV SCH (08:59)
[2022-03-20] MEDS ORDERED: ISOVUE-370 76% 100ML VIAL As Ordered ONE (10:55)
[2022-03-20] MEDS ORDERED: VANCOMYCIN HCL 1,000 MG, VIAL MATE ADAPTER 1 EACH in D5W 250 ML IV SCH (16:00)
[2022-03-20] MEDS ORDERED: NOREPINEPHRINE 8MG IN 500ML D5W BAG As Ordered ONE (17:54)
[2022-03-20] MEDS ORDERED: NOREPINEPHRINE/DEXTROSE 8 MG in IV 1 EA IV SCH (18:00)
[2022-03-20] MEDS ORDERED: PIPERACILLIN/TAZOBACTAM SOD 4.5 GM in D5W MINI-BAG PLUS 50 ML IV SCH (20:00)
[2022-03-20] MEDS: MORPHINE 2 MG/ML 1ML VIAL IV PRN (20:48)
[2022-03-21] VITALS (99 sets, daily range): BP systolic 64–200; BP diastolic 32–71; O2SAT 94
[2022-03-21] MEDS ORDERED: PIPERACILLIN/TAZOBACTAM SOD 4.5 GM in D5W MINI-BAG PLUS 50 ML IV SCH (01:30)
[2022-03-21] MEDS ORDERED: VANCOMYCIN HCL 1,000 MG, VIAL MATE ADAPTER 1 EACH in D5W 250 ML IV SCH (01:40)
[2022-03-21] MEDS ORDERED: PIPERACILLIN/TAZOBACTAM SOD 2.25 GM in D5W MINI-BAG PLUS 50 ML IV SCH (02:00)
[2022-03-21] MEDS ORDERED: VANCOMYCIN HCL 1,000 MG, VIAL MATE ADAPTER 1 EACH in NS 250 ML IV SCH (02:00)
[2022-03-21] MEDS: MIDODRINE 5 MG TAB PO SCH ×3 (03:56→20:00)
[2022-03-21 05:12] LABS: HEMATOCRIT 24.9 % (42.0-52.0); HEMOGLOBIN 8.4 g/dl (13.5-17.5); MEAN CORPUSCULAR HEMOGLOBIN 31.9 pg (27.0-33.0); MEAN CORPUSCULAR HGB CONC 33.7 g/dl (32.0-36.5); MEAN CORPUSCULAR VOLUME 94.7 fl (80.0-96.0); RED BLOOD COUNT 2.63 10^6/uL (4.30-6.10)
[2022-03-21 05:16] LABS: PLATELET COUNT, AUTOMATED 59 10^3/uL (150-450); WHITE BLOOD COUNT 30.3 10^3/uL (4.0-10.0)
[2022-03-21 05:51] LABS: CREATININE FOR GFR 3.02 MG/DL (0.70-1.30); POTASSIUM SERUM 4.5 MEQ/L (3.5-5.1)
[2022-03-21] MEDS: INSULIN LISPRO (NovoLOG) PER UNIT SC SCH ×4 (07:10→21:00)
[2022-03-21] MEDS: MIRALAX *UNIT DOSE* 17GM PACKET PO SCH (08:39)
[2022-03-21] MEDS: tiZANidine 4 MG TAB PO SCH ×2 (08:39→20:50)
[2022-03-21] MEDS ORDERED: NOREPINEPHRINE/DEXTROSE 8 MG in IV 1 EA IV SCH (09:04)
[2022-03-21] MEDS ORDERED: SODIUM CHLORIDE 0.9% 1000ML IV ONE (09:05)
[2022-03-21] MEDS ORDERED: LIDOCAINE 1% MDV 20ML VIAL As Ordered ONE (09:18)
[2022-03-21] MEDS: SENNA 8.6 MG TAB (SENOKOT) PO SCH ×2 (09:44→20:50)
[2022-03-21 10:41] LABS: APPEARANCE, BODY FLUID CLOUDY (CLEAR); ASCITES FL COLOR YELLOW (COLORLESS); SOURCE, BODY FLUID ASCITES
[2022-03-21] MEDS: NOREPINEPHRINE BITARTRATE 16 MG in D5W 484 ML IV SCH (11:00)
[2022-03-21] MEDS ORDERED: MEROPENEM INJ 500 MG in IV 1 EA IV SCH (11:00)
[2022-03-21] MEDS ORDERED: VASOPRESSIN INJ 20 UNITS in NS 499 ML IV SCH ×3 (11:05→21:00)
[2022-03-21] MEDS ORDERED: VASOPRESSIN INJ 20 UNITS/ML VIAL As Ordered ONE (11:07)
[2022-03-21 11:28] LABS: BACTERIA, URINE LARGE AMOUNT; HYALINE CAST, URINE NONE SEEN /lpf (0-1); RBC, URINE TNTC /hpf (0-3); SQUAMOUS EPITHELIAL CELL URINE NONE SEEN /hpf (SMALL AMT)
[2022-03-21] MEDS: HEPARIN SOD (PORCINE) 5000UNITS/ML 1ML VIAL/SYRINGE SQ SCH ×2 (12:16→21:00)
[2022-03-21] MEDS: MORPHINE 2 MG/ML 1ML VIAL IV PRN (12:18)
[2022-03-21] MEDS ORDERED: SODIUM CHLORIDE 0.9% INJ 10 ML SYR IV PRN (18:00)
[2022-03-21] MEDS ORDERED: SODIUM CHLORIDE 0.9% INJ 10 ML SYR IV SCH (18:00)
[2022-03-21] MEDS ORDERED: ACETAMINOPHEN 650 MG SUPP PR PRN (18:20)
[2022-03-21] MEDS ORDERED: LR 500 ML IV ONE (22:30)
[2022-03-21] MEDS ORDERED: PHENYLEPHRINE HCL INJ 50 MG in D5W 495 ML IV SCH (23:00)
[2022-03-22] VITALS (13 sets, daily range): BP systolic 38–107; BP diastolic 34–65
[2022-03-22] MEDS ORDERED: LR 500 ML IV ONE (00:15)
[2022-03-22] MEDS: NOREPINEPHRINE BITARTRATE 16 MG in D5W 484 ML IV SCH (01:28)
== END 2022-03-22 04:06 | disposition expired | DRG 853 ==
LOC: M ED 07:31 → M ED INP 11:46 → ENRESERV 14:58 → M ICU 16:43
PROVIDERS: ADMIT Internal Medicine; ATTEND Internal Medicine
PROC: 05HM33Z Insertion of Infusion Device into Right Internal Jugular Vein, Percutaneous Approach (ICD-10-PCS; 2022-03-11)
PROC: 03H833Z Insertion of Infusion Device into Left Brachial Artery, Percutaneous Approach (ICD-10-PCS; 2022-03-12)
PROC: 0W9G3ZZ Drainage of Peritoneal Cavity, Percutaneous Approach (ICD-10-PCS; 2022-03-13)
PROC: 0Y6J0Z2 Detachment at Left Lower Leg, Mid, Open Approach (ICD-10-PCS; principal; 2022-03-16 12:00)
PROC: 30233N1 Transfusion of Nonautologous Red Blood Cells into Peripheral Vein, Percutaneous Approach (ICD-10-PCS; 2022-03-17)
PROC: 02HV33Z Insertion of Infusion Device into Superior Vena Cava, Percutaneous Approach (ICD-10-PCS; 2022-03-21)
DX: A41.9 Sepsis, unspecified organism (principal); R65.21 Severe sepsis with septic shock; N17.0 Acute kidney failure with tubular necrosis; K76.6 Portal hypertension; R18.8 Other ascites; A52.16 Charcot's arthropathy (tabetic); E87.2 Acidosis; E87.1 Hypo-osmolality and hyponatremia; M86.8X7 Other osteomyelitis, ankle and foot; J90 Pleural effusion, not elsewhere classified; L02.416 Cutaneous abscess of left lower limb; M86.172 Other acute osteomyelitis, left ankle and foot; K74.60 Unspecified cirrhosis of liver; K75.81 Nonalcoholic steatohepatitis (NASH); E11.42 Type 2 diabetes mellitus with diabetic polyneuropathy; E11.69 Type 2 diabetes mellitus with other specified complication; I10 Essential (primary) hypertension; D64.9 Anemia, unspecified; E83.51 Hypocalcemia; D69.6 Thrombocytopenia, unspecified; Z79.899 Other long term (current) drug therapy; Z79.4 Long term (current) use of insulin; Z66 Do not resuscitate